=== PATIENT | male | born 1940 | race Caucasian/White ===

== ENCOUNTER 2021-12-12 15:13 | Outpatient (CLI) | payer MEDICARE, OTHER, SELFPAY | END 2021-12-12 15:14 | disposition home or self-care (01) | LOC: NFLDREF 12-24 11:48 | PROVIDERS: PCP Family Medicine; Visit Provider Family Medicine | DX: I50.33 Acute on chronic diastolic (congestive) heart failure (principal); N18.30 Chronic kidney disease, stage 3 unspecified | CPT/HCPCS: 80048 ==

== ENCOUNTER 2021-12-19 14:07 | Outpatient (CLI) | payer MEDICARE, OTHER, SELFPAY ==
[2021-12-19 12:41] LABS: Chloride* 101 mmol/L (96-114); Potassium* 4.7 mmol/L (3.6-5.1); Sodium* 136 mmol/L (135-149)
[2021-12-19 12:44] LABS: Blood Urea Nitrogen* 21 mg/dL (7-30); Carbon Dioxide* 33 mmol/L (20-32); Creatinine* 1.7 mg/dL (0.5-1.5); Estimated Glomerular Filt Rate 40 ml/min; Glucose* 171 mg/dL (60-115)
[2021-12-19 12:45] LABS: Calcium* 8.8 mg/dL (8.4-10.6)
== END 2021-12-19 14:08 | disposition home or self-care (01) ==
PROVIDERS: PCP Family Medicine; Visit Provider Family Medicine
DX: I50.30 Unspecified diastolic (congestive) heart failure (principal); N18.30 Chronic kidney disease, stage 3 unspecified
CPT/HCPCS: 80048

== ENCOUNTER 2022-06-25 10:19 | Outpatient (CLI) | payer MEDICARE, OTHER, SELFPAY ==
[2022-06-25 11:54] LABS: INR 2.89 (0.91-1.10); Prothrombin Time 31.6 Seconds
== END 2022-06-25 10:20 | disposition home or self-care (01) ==
PROVIDERS: PCP Family Medicine; Visit Provider Family Medicine
DX: I48.91 Unspecified atrial fibrillation (principal); Z79.01 Long term (current) use of anticoagulants
CPT/HCPCS: 85610

== ENCOUNTER 2022-07-01 08:37 | Outpatient (CLI) | payer MEDICARE, OTHER, SELFPAY ==
[2022-07-01 09:51] LABS: Albumin* 4.2 g/dL (3.3-5.0); Chloride* 105 mmol/L (96-114); Sodium* 140 mmol/L (135-149)
[2022-07-01 09:52] LABS: Potassium* 4.8 mmol/L (3.6-5.1)
[2022-07-01 09:53] LABS: Carbon Dioxide* 29 mmol/L (20-32); Cholesterol* 175 mg/dL (90-199); Creatinine* 1.6 mg/dL (0.5-1.5); Estimated Glomerular Filt Rate 43 ml/min
[2022-07-01 09:54] LABS: Alanine Aminotransferase* 18 U/L (4-50); Alkaline Phosphatase* 94 U/L (40-150); Aspartate Amino Transferase* 31 U/L (12-35); Bilirubin Total* 0.8 mg/dL (0.1-1.5); Blood Urea Nitrogen* 30 mg/dL (7-30); Glucose* 107 mg/dL (60-115); Total Protein* 7.2 g/dL (6.0-8.3); Triglycerides* 66 mg/dL (40-149)
[2022-07-01 09:55] LABS: HDL Cholesterol* 70 mg/dL (>=40); LDL Cholesterol Calculated 92 mg/dL (<100)
[2022-07-01 10:37] LABS: Vitamin B12* 583 pg/mL (243-894)
== END 2022-07-01 08:38 | disposition home or self-care (01) ==
PROVIDERS: PCP Family Medicine; Visit Provider Family Medicine
DX: E53.8 Deficiency of other specified B group vitamins (principal); K21.9 Gastro-esophageal reflux disease without esophagitis; I10 Essential (primary) hypertension; Z13.6 Encounter for screening for cardiovascular disorders; N18.30 Chronic kidney disease, stage 3 unspecified; Z79.01 Long term (current) use of anticoagulants
CPT/HCPCS: 80053; 80061; 82607

== ENCOUNTER 2022-12-22 08:51 | Outpatient (CLI) | payer MEDICARE, OTHER, SELFPAY | END 2022-12-22 08:52 | disposition home or self-care (01) | PROVIDERS: PCP Family Medicine; Referring Provider Family Medicine; Visit Provider Family Medicine | DX: Z01.818 Encounter for other preprocedural examination (principal); N18.32 Chronic kidney disease, stage 3b; D64.9 Anemia, unspecified | CPT/HCPCS: 80048 ==

== ENCOUNTER 2023-12-24 08:01 | Outpatient (CLI) | payer MEDICARE, OTHER, SELFPAY ==
--- OUTSIDE RECORDS SUMMARY | 2023-12-25 08:30 | XMS_ITS | Clinical Summary ---
Author Organization [facility] Address [address] [place] [address] Care Team Providers Care Engineer Process Name Role Phone Elsewhere, Pcp Primary Care Provider Unavailabl e Source Comments Patient records contain information from all sites at [facility]. For routine questions regarding patient records, call [phone] during business hours, M-F 8:00 AM - 5:00 PM Central Time. Record requests for emergency care only can be directed to [phone] at any time.[facility] Allergies No known active allergies Medications Medication Sig Dispensed Refills Start Date End Date Status metoprolol tartrate (LOPRESSOR) 25 mg tablet Take 25 mg by mouth daily. 09/03/2020 Active sertraline (ZOLOFT) 100 mg tablet Take 1 tablet by mouth daily. 09/13/2014 Active amoxicillin (AMOXIL) 500 mg capsule Take 2,000 mg by mouth as needed (prior to dental procedures). Active warfarin (COUMADIN) 10 mg tablet Take 0.5-1 tablets (5-10 mg total) by mouth daily. 11/29/20: 10 mg; 11/30/20: 5 mg, then resume home 5 mg on Mondays and with 10 mg all other days of the week 11/29/2020 Active Additional Information Patient taking differently:5-10 mg oral Daily,TAKE 10MG EVERY Thursday, Thursday, AND TAKES 5 MG THURSDAY, , THURSDAY, Reported on 12/01/2022 cyanocobalamin (VITAMIN B12) 1,000 mcg tablet Take 1,000 mcg by mouth daily. Active torsemide (DEMADEX) 20 mg tablet Take 1 tablet (20 mg total) by mouth daily. 04/29/2022 Active psyllium (METAMUCIL) 0.52 gram capsule Take 1-2 capsules by mouth daily. 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 Per the NCCN guidelines for lung cancer screening, recommend a follow-up low dose chest CT in 3 months. 08/07/16 Peripheral nodular opacity in the right middle lobe is less prominent on today's study and most likely represents an area of scarring or atelectasis. 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 Encounter For Checking And Testing Of Cardiac Pacemaker Pulse Generator Battery Discharge Disposition: Home or Self Care 10/16/2023 [facility] [address] [place] [address] Myrna Sol M.D. Personal History Of Other Malignant Neoplasm Of Skin (Primary Dx) 10/14/2023 Clinical Communication Department of Dermatology in [place], [place] [address] [place] [address] Abhi Correa M.D. Referral from Last 3 Months Immunizations Name Administration Dates Next Due Influenza Split 02/01/2007 PPSV23 02/01/2007 Family History Medical History Relation Name Comments Melanoma Brother 1 Quan dykema Sleep apnea Brother 1 Quan dykema Colon polyps Brother 2 Sheng dykema Melanoma Sister Emmy de la rosa Relation Name Status Comments Brother 1 Quan dykema Brother 2 Sheng dykema Sister Emmyfilomena de la rosa Social History Tobacco Use Types Packs/Day Years Used Date Smoking Tobacco: Former Cigarettes 1 50 0 [birth year]/04/1954 - 05/04/2004 Smokeless Tobacco: Never Tobacco Cessation:Counseling Given: Not Answered Alcohol Use Standard Drinks/Week Comments Yes 14 (1 standard drink = 0.6 oz pu re alcohol) Humiliation, Afraid, Rape, and Kick questionnair e Answer Date Recorded Within the last year, have y ou been afraid of your partner or ex-partner? No 05/08/2022 Within the last year, have y ou been humiliated or emotionally abused in other ways by your partner or ex-partner? No Within the last year, have y ou been kicked, hit, slapped, or otherwise physically hurt by your partner or ex-partner? No 05/08/2022 Within the last year, have y ou been raped or forced to have any kind of sexual activity by your partner or ex-partner? No 05/08/2022 Social Connection and Isolat ion Panel [NHANES] Answer Date Recorded In a typical week, how many times do you talk on the phone with family, friends, or neighbors? More than three times a week 05/08/2022 How often do you get togethe r with friends or relatives? Twice a week 05/08/2022 How often do you attend chur or islam services? More than 4 times per year 05/08/2022 Do you belong to any clubs o r organizations such as spiritism groups, unions, fraternal or athletic groups, or school groups? Yes 05/08/2022 How often do you attend meet ings of the clubs or organizations you belong to? More than 4 times per year 05/08/2022 Are you , , di vorced, , never , or living with a partner? 05/08/2022 AUDIT-C Answer Date Recorded Q1: How often do you have a drink containing alcohol? 4 or more times a week 05/08/2022 Q2: How many drinks containi ng alcohol do you have on a typical day when you are drinking? 1 or 2 3 Q3: How often do you have si x or more drinks on one occasion? Never 05/08/2022 Overall Financial Resource Strain (CARDIA) Answe r Date Recorded How hard is it for you to pa y for the very basics like food, housing, medical care, and heating? Not very hard 05/08/2022 [facility] [place] of Occupat ional Health - Occupational Stress Questionnaire Answer Date Recorded Do you feel stress - tense, restless, nervous, or anxious, or unable to sleep at night because your mind is troubled all the time - these days? Not at all 05/08/2022 Exercise Vital Sign Answer Date Recorde d On average, how many days pe r week do you engage in moderate to strenuous exercise (like a brisk walk)? 2 days 05/08/2022 On average, how many minutes do you engage in exercise at this level? 20 min 05/08/2022 Hunger Vital Sign Answer Date Recorded Within the past 12 months, y ou worried that your food would run out before you got the money to buy more. Never true 05/08/19 23 Within the past 12 months, t he food you bought just didn't last and you didn't have money to get more. Never true 05/08/2022 PRAPARE - Transportation Answer Date Re corded In the past 12 months, has l ack of transportation kept you from medical appointments or from getting medications? No 09/2022 In the past 12 months, has l ack of transportation kept you from meetings, work, or from getting things needed for daily living? No 05/08/2022 Housing Stability Vital Sign Answer Gagandeep e Recorded In the last 12 months, was t here a time when you were not able to pay the mortgage or rent on time? No 05/08/2022 In the last 12 months, how many places have you lived? 2 05/08/2022 In the last 12 months, was t here a time when you did not have a steady place to sleep or slept in a jail (including now)? No 05/08/2022 Nutrition Answer Date Recorded Nutrition: EVOO Fat Source No 05/08 On average, how many serving s of fruits and vegetables do you eat per day (serving size is equal to 1 cup or approximately the size of a tennis ball)? 0-1 05/08/2022 Dental Answer Date Recorded Dental: Regular Dentist Yes 11/15/19 Employment Answer Date Recorded Employment status Retired 05/08/2022 Education Answer Date Recorded What is the highest level of school you have completed or the highest degree you have received? 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 [employer] Pulse 60 03/13/2023 1:50 PM 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 Temperature 36.6 ??C (97.9 ??F) 03/13/2023 1:50 PM CS T Respiratory Rate 28 04/24/2022 9:10 AM 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 Oxygen Saturation 91% 03/13/2023 1:50 PM 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 [employer] Inhaled Oxygen Concentration - - Weight 79.9 kg (176 lb 2.4 oz) 03/13/2023 1:50 P M 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 Height 176.8 cm (5' 9.61) 03/13/2023 1:50 PM CS T Body Mass Index 25.56 03/13/2023 1:50 PM 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 [employer] Plan of Treatment Health Maintenance Due Date Last Done Comments Zoster Vaccines (2 of 3) 06/04/2006 04/09/2006 Depression Screening (Annual PHQ-2) 05/04/2023 Fall Risk Screen (Annual) 05/04/2023 COVID-19 Vaccine (2022-2 4 season) 2023 04/23/2023, 02/11/2022, 10/15/2021, Additional history exists Creatinine Level (Kidney Fun ction Test) 10/01/2023 09/30/2022, 02/06/2022, 10/18/2021, Additional history exists Fasting Glucose for Diabetes Screening 12/03/2023 12/02/2022, 02/06/2022, 10/18/2021, Additional history exists Potassium Level 12/03/2023 12/02/2022, 10/0 10/2021, 02/06/2022, Additional history exists Sodium Level 12/03/2023 12/02/2022, 10/0 10/2021, 10/18/2021, Additional history exists Influenza Vaccine (#1) 2024 , 02/11/2022, 02/06/2021, Additional history exists DTaP,Tdap,and Td Vaccines (3 - Td or Tdap) 11/01/2024 11/01/2014, 11/01/2012, 11/24/2003, Additional history exists Pneumococcal vaccine (65+ years) Completed 08/07/2014, 02/01/2007, 02/17/2006 Medical Devices Implanted Type Area Currency Examiner Device Identifier Shelf Expiration Date Model / Serial / Lot Lead GrantAdler [id number] Implanted:11/02 (Quantity not on file) Cardiac Lead Other/Legacy - See Implant Description Guidant / [id number] / Description:LEAD Guidant Cor p [id number] Flextend Lead Guidant Baron [id number] Implanted:11/02 (Quantity not on file) Cardiac Lead Other/Legacy - See Implant Description Guidant / [id number] / Description:LEAD Guidant Cor p [id number] Flextend Valve Aortic Carbomedics 25mm - Chappell [id number] Implanted:Qty: 1 on 09/10/2007 Cardiac Valve Prosthesis Aorta Carbomedics Description:Device Manufactu rer - Carbomedics. Body Location - Other. Aortic. Device Status Text - [id number]. Ring Annuloflex Carbomedics 28mm - Chappell [id number] Implanted:Qty: 1 on 11/01/2014 Cardiac Valve Prosthesis Other/Legacy - See Implant Description Carbomedics Description:Device Manufactu rer - Carbomedics. Body Location - Other. Tricuspid. Device Status Text - [id number]. [place] Eddie Fuzzy 6 X 1 - Chappell [id number] Implanted:Qty: 1 on 09/10/2007 Mesh or Patch Impra Description:Device Manufactu rer - Impra. Device Status Text - [id number]. [place] Eddie Fuzzy 1 X 1 - Chappell 1667 Implanted:Qty: 2 on 09/10/2007 Mesh or Patch Doutíssima Description:Device Manufactu rer - Info Assembly. Device Status Text - [id number]. [facility] Data - [id number]. Ocular Lens Ocular Lens Bilateral: Eye Pacemaker [employer] [id number] Implanted:05/2015 (Quantity not on file) Pacemaker Other/Legacy - See Implant Description [employer] / [id number] / Description:Pacemaker [employer] [id number] ACCOLADE EL Hemashield Woven-Str 28 X 30 - Chappell [id number] Implanted:Qty: 1 on 09/10/2007 Vascular Graft Aorta Other/Legacy - See Implant Description Description:Device Manufactu rer - Meadox. Body Location - Other. Aortic. Device Status Text - [id number]. Explanted Type Area Currency Examiner Device Identifier Shelf Expiration Date Model / Serial / Lot Pacemaker Guidant Baron [id number] Implanted:11/29 (Quantity not on file) Explanted:01/02 (Quantity not on file) Pacemaker Chest Guidant / [id number] / Description:Pacemaker Guidan t Baron [id number] Procedures Procedure Name Priority Date/Time Associated Diagnosis Comments PACER REMOTE FOLLOW UP Routine 11/10/2023 1:58 PM CDT Encounter For Checking And Testing Of Cardiac Pacemaker Pulse Generator Battery GLUCOSE, FASTING, S/P Routine 12/02/2022 7:36 AM CDT Atrial Fibrillation Permanent (HCC) Congestive Heart Failure (HCC) SODIUM, S/P Routine 12/02/2022 7:35 AM CDT Atrial Fibrillation Permanent (HCC) Congestive Heart Failure (HCC) POTASSIUM, S/P Routine 12/02/2022 7:35 AM CDT Atrial Fibrillation Permanent (HCC) Congestive Heart Failure (HCC) CREATININE, POCT, B Routine 09/30/2022 6:59 AM CDT from Last 3 Months or Most Recently Relevant to Health Maintenance Results * PACER REMOTE FOLLOW UP (11/10/2023 1:58 PM CDT) Date Time Interrogation Session [id number] [facility] Implantable Pulse Generator Currency Examiner [employer] [facility] Implantable Pulse Generator Model L321 ACCOLADE EL [facility] Implantable Pulse Generator Serial Number [id number] [facility] Type Interrogation Session Remote [facility] Clinic Name [facility] Implantable Pulse Generator Type Pacemaker [facility] Implantable Pulse Generator Implant Date [id number] [facility] Implantable Lead Currency Examiner Guidant [facility] Implantable Lead Model 4086 Flextend [facility] Implantable Lead Serial Number [id number] [facility] Implantable Lead Implant Date [id number] [facility] Implantable Lead Polarity Type Bipolar Lead [facility] Implantable Lead Location Detail 1 Endocardial [facility] Implantable Lead Special Function Lead length: 45 cm [facility] Implantable Lead Location Right Atrium [facility] Implantable Lead Currency Examiner Guidant [facility] Implantable Lead Model 4087 Flextend [facility] Implantable Lead Serial Number [id number] [facility] Implantable Lead Implant Date [id number] [facility] Implantable Lead Polarity Type Bipolar Lead [facility] Implantable Lead Location Detail 1 Endocardial [facility] Implantable Lead Special Function Lead length: 52 cm [facility] Implantable Lead Location Right Ventricle [facility] Abelino Setting Mode (NBG Code) VVIR [facility] Abelino Setting Lower Rate Limit 70 {beats}/ min [facility] Abelino Setting Maximum Sensor Rate 110 {beats}/ min [facility] Abelino Setting AT Mode Switch Rate 170 {beats}/ min [facility] Lead Channel Setting Sensing Sensitivity 0.15 mV [facility] Lead Channel Setting Sensing Adaptation Mode Fixed [facility] Lead Channel Setting Sensing Polarity Bipolar [facility] Lead Channel Setting Sensing Sensitivity 4.0 mV [facility] Lead Channel Setting Sensing Adaptation Mode Fixed [facility] Lead Channel Setting Pacing Polarity Bipolar [facility] Lead Channel Setting Pacing Pulse Width 0.4 ms [facility] Lead Channel Setting Pacing Amplitude 2.5 V [facility] Lead Channel Setting Pacing Capture Mode Adaptive [facility] Zone Setting Type Category VT [facility] Zone Setting Detection Interval 375 ms [facility] Lead Channel Impedance Value 1,204 ohm [facility] Lead Channel Pacing Threshold Amplitude 2.0 V [facility] Lead Channel Pacing Threshold Pulse Width 0.4 ms [facility] Battery Date Time of Measurements [facility] Battery Status Beginning of Service [facility] Battery Remaining Longevity 96 mo [facility] Battery Remaining Percentage 93 % [facility] Abelino Statistic Date Time Start [facility] Abelino Statistic Date Time End [facility] Abelino Statistic RA Percent Paced 0 % [facility]ino Statistic RV Percent Paced 99 % [facility] Episode Statistic Recent Count 0 [facility] Episode Statistic Type Category AT/AF [facility] Episode Statistic Vendor Type Category AF [facility] Episode Statistic Recent Count 0 [facility] Episode Statistic Type Category SVT [facility] Episode Statistic Vendor Type Category SVT [facility] Episode Statistic Recent Count 28 [facility] Episode Statistic Type Category VT [facility] Episode Statistic Vendor Type Category NSVT [facility] Episode Statistic Recent Count 2 [facility] Episode Statistic Type Category VT [facility] Episode Statistic Vendor Type Category VT [facility] Episode Statistic Recent Date Time Start [facility] Episode Statistic Recent Date Time End [facility] Episode Statistic Recent Date Time Start [facility] Episode Statistic Recent Date Time End [facility] Episode Statistic Recent Date Time Start [facility] Episode Statistic Recent Date Time End [facility] Episode Statistic Recent Date Time Start [facility] Episode Statistic Recent Date Time End [facility] Episode Type Category Periodic EGM [facility] Episode Date Time [facility] Episode Type Category Other [facility] Episode Date Time [facility] Episode Type Category VT [facility] Episode Date Time [facility] Episode Duration 12 s [facility] Episode Type Category VT [facility] Episode Date Time [id number] [facility] Episode Duration 17 s [facility] Episode Type Category VT [facility] Episode Date Time [facility] Episode Duration 13 s [facility] Episode Type Category VT [facility] Episode [facility] Time [facility] Episode Duration 15 s [facility] Episode Type Category VT [facility] Episode Date Time [facility] Episode Duration 15 s [facility] Anatomical Region Laterality Modality Other 11/06/2023 2:11 AM CDT Narrative 2023 8:07 AM CDT PURPOSE OF VISIT: ??Routine remote transmission. PRESENTING EGM: ??SEWAGE DISPOSAL ENGINEER at 70 bpm. ?? VENTRICULAR ARRHYTHMIAS: ?Sustained episodes: None. ?Non-Sustained episodes: ??Five events classified as NSVT with two stored EGMs. EGMs show 23-30 beat runs of NSVT at 167-171 bpm. Patient denies symptoms. I have updated his cardiology team. BATTERY LONGEVITY: Expected battery longevity trends reviewed and are stable and consistent with device settings and use. SUMMARY: All device function appears normal. FOLLOW UP: Next routine follow-up will be in 3 months via Latitude transmission. DEVICE RN: Joseph Lazo RN Provider statement: This patient underwent device interrogation. I agree that the device interrogation was medically indicated to provide appropriate care and continue routine device interrogations as indicated. Lena Luna M.D. CV IMPLANTABLE CARDI AC DEVICE * Glucose, Fasting (12/02/2022 7:36 AM CDT) Glucose, P 97 70 - 100 mg/dL 12/02/2022 8:33 AM CDT DTL Last Intake 13 hr 12/02/2022 8:14 AM CDT DTL Blood (Blood, Venous) 12/02/2022 7:36 AM CDT 12/02/2022 8:14 AM CDT Abdulkadir Meadows M.D. LAB BLOOD NON ADD-ON [facility] [address] [place] [address], [facility] [address] [place] [address] * Sodium (12/02/2022 7:35 AM CDT) Sodium, S 141 135 - 145 mmol/L 12/02/2022 8:37 AM CDT DTL Blood (Blood, Venous) 12/02/2022 7:35 AM CDT 12/02/2022 8:09 AM CDT Abdulkadir Meadows M.D. LAB BLOOD ADD-ON Performing Organization Address City/[facility]/ZIP Co de Phone Number [facility] [address] [place] [address], [facility] [address] [place] [address] * Potassium (12/02/2022 7:35 AM CDT) Potassium, S 4.9 3.6 - 5.2 mmol/L 12/02/2022 8:37 AM CDT DTL Blood (Blood, Venous) 12/02/2022 7:35 AM CDT 12/02/2022 8:09 AM CDT Abdulkadir Meadows M.D. LAB BLOOD ADD-ON [facility] [address] [place] [address], [facility] DTL [facility] [place] [address] * (ABNORMAL) Creatinine, POCT (09/30/2022 6:59 AM CDT) Creatinine, POCT, B 1.8(H) 0.7 - 1.4 mg/dL 09/30/2022 7:01 AM CDT PCDT Comment: ----ADDITIONAL INFORMATION---- Performed at the Point of Care Blood 09/30/2022 6:59 AM CDT 09/30/2022 7:01 AM CDT Unknown Provider LAB POCT ORDERABLES - DEVICE [facility] [address] [place] [address], [facility] PCDT [facility] [address] [place] [address] from Last 3 Months or Most Recently Relevant to Health Maintenance Advance Directives For more information, please contact: [phone] Documents on File Type Date Recorded 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 See document viewer. * Full Code (Latest Code Status on File) Date Activated Date Inactivated Comments 11/25/2020 4:47 AM 11/29/2020 6:51 PM Question Answer Comments Full Code: Discussed Care Teams Engineer Process Relationship Specialty Start Date End Date Elsewhere, Pcp PCP - General Family Medicine 11/27/20 Mary Ann Sol [address] [place] [address] Environmental Projects Advisor Physician 01/17/19
--- OUTSIDE RECORDS SUMMARY | 2023-12-25 08:31 | XMS_ITS | Encounter Summary ---
Author Organization [facility] Address [address] [place] [address] Care Team Providers Care Tube Closing Machine Operator Name Role Phone Elsewhere, Pcp Primary Care Provider Unavailabl e Reason for Referral * Outpatient (Routine) - Authorized Specialty Diagnoses / Procedures Referred By Jesus Manuel melchor Referred To Contact Dermatology Diagnoses Personal History Of Other Malignant Neoplasm Of Skin Myrna Sol M.D. [address] [place] [address] [facility] Referral ID Status Reason Start Date Expiration Date V isits Requested Visits Authorized [id number] Authorized 10/16/2023 04/16/2025 1 1 Encounter Details Date Type Department Care Team (Late st Contact Info) Description 10/16/2023 [facility] [address] [place] [address] Myrna Sol M.D. [address] [place] [phone] Personal History Of Other Malignant Neoplasm Of Skin (Primary Dx) Social History Tobacco Use Types Packs/Day Years Used Date Smoking Tobacco: Former Cigarettes 1 50 0 05/04/1954 - 05/04/2004 Smokeless Tobacco: Never Alcohol Use Standard Drinks/Week Comments Yes 14 [...] How often do you attend chur or rastafari services? More than 4 times per year 05/08/2022 Do you belong to any clubs o r organizations such as synagogue groups, unions, fraternal or athletic groups, or [...] care, and heating? Not very hard 05/08/2022 [facility] Occupat ional Health - Occupational Stress [...] place to sleep or slept in a long term (including now)? No 05/08/2022 Nutrition Answer Date [...] Orientation Straight 08/22/2018 2: 26 PM CDT documented as of this encounter Plan of Treatment Scheduled Referrals Name Type Priority Associated Diagnoses Order Schedule Dermatology Referral Outpatient Referral Routine Personal History Of Other Malignant Neoplasm Of Skin Expected: 10/16/2023 (Approximate), Expires: 01/15/2025 documented as of this encounter Visit Diagnoses Diagnosis Personal History Of Other Malignant Neoplasm Of Skin- Primary documented in this encounter Care Teams Tube Closing Machine Operator Relationship Specialty Start Date End Date Elsewhere, Pcp PCP - General Family Medicine 11/27/20 Mary Ann Sol [address] [place] [address] Key Account Representative Physician 01/17/19 documented as of this encounter
--- OUTSIDE RECORDS SUMMARY | 2023-12-25 08:31 | XMS_ITS | Encounter Summary ---
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 Social History Tobacco Use Types Packs/Day Years [...] 05/08/2022 How often do you attend chur ch or nondenominational services? More than 4 times per year 05/08/2022 Do you belong to any clubs o r organizations such as alevism groups, unions, fraternal or athletic groups, or [...] care, and heating? Not very hard 05/08/2022 [facility]ational Stress Questionnaire Answer Date [...] place to sleep or slept in a intermediate (including now)? No 05/08/2022 Nutrition Answer Date [...] PM CDT documented as of this encounter Miscellaneous Notes * Telephone Encounter - Joseph Lazo RArmandoN. - 11/10/2023 2:04 PM CDT Images from the original note were not included. Lynn, this is an update from Mr. Gross's pacemaker. He had 5 NSVT events in the past 3 months. There are images for 2 on the events. It is difficult to confirm that they are ventricular arrhythmiasbut we he has been in complete AV block with no escape rate at his in-clinic checks, so probably not conducted AT. He does not recall any symptoms. Joseph Moya 11/03/2023 22:50: 23 beat run of NSVT at 175 bpm 10/13/2023 15:20: 30 beat run of NSVT at 167 bpm. * Telephone Encounter - Savannah Cota R.N. - 03/16/2023 9:57 AM PHYSICIAN NON INVASIVE CARDIOLOGIST Images from the original note were not included. Sam's device sent an alert transmission for VT episode. 1 VHR episode that occurred on 03-16-23 @ 07am. EGM shows frequent PVCs leading up to 5 beats of NSVT then 13 beats of NSVT, episode ended with bigeminal PVCs. Nursing contacted patient regarding symptoms. He denied feeling anything D/t this being the second episode similar in the last week I just wanted you to be aware. Patient stated he takes his meds in Am with breakfast and has not missed any recently. My full report is in epic Thank you Savannah. ICIAN NON INVASIVE CARDIOLOGIST documented in this encounter Plan of Treatment Not on file documented as of this encounter Visit Diagnoses Not on filedocumented in this encounter Care Teams It Compliance Analyst Relationship Specialty Start Date End Date Elsewhere, Pcp PCP - General Family Medicine 11/27/20 Mary Ann Sol [address] [place] [id number] Domain Architect Physician 01/17/19 documented as of this encounter
--- OUTSIDE RECORDS SUMMARY | 2023-12-25 08:31 | XMS_ITS | Encounter Summary ---
Author Organization [facility] Address [address] [place] [address] Care Team Providers Care Conventions Reservationist Name Role Phone Elsewhere, Pcp Primary Care Provider Unavailabl e Reason for Visit * Reason Onset Date Comments Referral 10/14/2023 Encounter Details Date Type Department Care Team (Late st Contact Info) Description 10/14/2023 Clinical Communication Department of Dermatology in [place], [place] [address] [place] [phone] Abhi Correa M.D. [address] [place] [phone] Referral Social History Tobacco Use Types Packs/Day Years [...] often do you attend chur ch or denominational services? More than 4 times per year 05/08/2022 Do you belong to any clubs o r organizations such as restorationist groups, unions, fraternal or athletic groups, or [...] care, and heating? Not very hard 05/08/2022 [facility] of Occupat ional Health - Occupational Stress [...] place to sleep or slept in a mcc (including now)? No 05/08/2022 Nutrition Answer Date [...] as of this encounter Plan of Treatment Not on file documented as of this encounter Visit Diagnoses Not on filedocumented in this encounter Care Teams Conventions Reservationist Relationship Specialty Start Date End Date Elsewhere, Pcp PCP - General Family Medicine 11/27/20 Mary Ann Sol [address] [place] [address] College Counselor Physician 01/17/19 documented as of this encounter
--- OUTSIDE RECORDS SUMMARY | 2023-12-25 08:31 | XMS_ITS | Clinical Summary ---
Author Organization [facility] Address [address] [place] [address] Care Team Providers Care Fashion Consultant Sales Name Role Phone None, Pcp Primary Care Provider Unavailabl e Allergies No known active allergies Medications Medication Sig Dispensed Refills Start Date End Date Status cyanocobalamin (VITAMIN B-12) 1000 MCG tablet Take 1,000 mcg by mouth daily Active enoxaparin (LOVENOX) 120 MG/0.8ML solution prefilled syringe PLEASE SEE ATTACHED FOR DETAILED DIRECTIONS 04/17/2022 Active metoprolol tartrate (LOPRESSOR) 25 MG tablet Take 25 mg by mouth 1 (one) time each day 02/22/2022 Active psyllium (METAMUCIL) 0.52 g capsule Take 1-2 capsules by mouth Active sertraline (ZOLOFT) 100 MG tablet Take 100 mg by mouth 1 (one) time each day 03/24/2022 Active torsemide (DEMADEX) 20 MG tablet TAKE 1 TABLET BY MOUTH IN THE MORNING AND EVENING DIRECTED NEEDED FOR WEIGHT GAIN 03/30/2022 Active warfarin (COUMADIN) 10 MG tablet TAKE 1 TABLET BY MOUTH DAILY. TAKE 5M MON/THU/THU, AND 10MG ALL OTHER DAYS. 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 Congestive heart failure 09/20/2021 Obstructive sleep apnea (adult) (pediatric) 09/02 Overview: Uses nightly Mild chronic obstructive pulmonary disease 09/20 Pernicious anemia 09/20/2021 Status post tricuspid valve repair 09/20/2021 Gastroesophageal reflux disease without esophagi tis 03/26/2021 Pneumonia 11/25/2020 Anemia 01/17/2019 Excessive anticoagulation 01/17/2019 Abnormal findings on diagnos tic imaging of other specified body structures 08/24/2018 History of cardiac pacemaker in situ 01/01/2018 Presence of prosthetic heart valve 01/01/2018 Adjustment disorder with depressed mood 03/05/20 17 Overweight (BMI 25.0-29.9) 03/05/2017 Erectile dysfunction 08/06/2016 Screening for colon cancer 08/06/2016 Screening for heart disease 08/06/2016 Solitary pulmonary nodule 03/19/2016 Overview: 03/19/16 CT lung screen showed 6 mm [...] follow-up low-dose chest CT in one year 03/19/16 CT lung screen showed 6 mm [...] follow-up low-dose chest CT in one year History of cigarette smoking 03/03/2016 Overview: Quit 2004. 36 pack year history Incisional hernia 03/03/2016 Overview: Present following CV surgery epigastric 2X2 cm Present following CV surgery epigastric 2X2 cm Pacemaker at end of battery life 01/03/2016 Hypercholesterolemia 07/10/2015 Transient ischemic attack 07/10/2015 Overview: Evaluated in [place] 06/2015 Evaluated in [place] 06/2015 Status post tricuspid valve replacement 11/17/19 15 Overview: [facility] 11/2014 Dr. Petar Clark Fatigue 03/18/2013 Shortness of breath 03/15/2013 Heart valve replaced by other means 09/24/2012 Overview: [facility] 11/2014 Dr. 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 therapy 1 Other specified extrapyramidal and movement diso rders 10/04/2009 Other abnormal glucose 10/12/2008 Permanent atrial fibrillation 06/07/2008 Benign neoplasm of colon 05/21/2006 Immunizations Name Administration Dates Next Due Flu Vaccine High Dose 65yrs and Older IM 02/11/2022,02/06/2021,02/11/2019,02/17,02/19/2017,03/03/2016,02/26/2015 ,02/14/2014,03/18/2013 Influenza Split 02/01/2007 Influenza, Split Virus, Triv alent, Preservative 02/09/2012,02/17/2011,03/26/2010,01/30,02/29/2008,02/26/2007,02/01/2007 ,02/17/2006,03/12/2005,05/21/2004,12/0 08/2002 Pneumococcal Conjugate 13-Valent 08/07/2014 Pneumococcal Polysaccharide 02/01/2007,10/17/200 6 TD Preservative Free 11/01/2014,11/24/2003,10/03 Td 11/24/2003,10/03/1997 Tdap 11/01/2012 Varicella 04/09/2006 Zoster 04/09/2006 Social History Tobacco Use Types Packs/Day Years Used Date Smoking Tobacco: Former Cigarettes Q uit: 05/2013 Smokeless Tobacco: Never Tobacco Cessation:Counseling Given: Not Answered Alcohol Use Standard Drinks/Week Comments Yes 2 (1 standard drink = 0.6 oz pur e alcohol) socially PHQ-2 Answer Date Recorded PHQ-9 Total Score 0 04/23/2022 Sex and Gender Information Value Date Recorded Sex Assigned at Not on file Gender Identity Not on file Sexual Orientation Not on file Last Filed Vital Signs Vital Sign Reading Time Taken Comments Blood Pressure 137/70 04/23/2022 2:44 PM OCCUP THERAPIST Pulse 71 04/23/2022 2:44 PM OCCUP THERAPIST Temperature 36.6 ??C (97.8 ??F) 04/23/2022 2:44 PM CS T Respiratory Rate 17 04/23/2022 2:44 PM OCCUP THERAPIST Oxygen Saturation 97% 04/23/2022 2:44 PM OCCUP THERAPIST Inhaled Oxygen Concentration - - Weight 82.3 kg (181 lb 8.4 oz) 04/23/2022 2:44 P M OCCUP THERAPIST Height - - Body Mass Index - - Plan of Treatment Health Maintenance Due Date Last Done Comments Fall Risk Performed 11/10/1958 Zoster Vaccines (2 of 3) 06/04/2006 04/09/2006 COVID-19 Vaccine ( season) 2023 04/23/2023, 02/11/2022, 10/15/2021, Additional history exists Influenza Vaccine (#1) 2024 , 02/11/2022, 02/06/2021, Additional history exists DTaP,Tdap,and Td Vaccines (3 - Td or Tdap) 11/01/2024 11/01/2014, 11/01/2012, 11/24/2003, Additional history exists Pneumococcal Vaccine: 65+ Years Completed 08/07/2014, 02/01/2007, 02/17/2006 HPV Vaccines Aged Out No longer eligi ble based on patient's age to complete this topic Care Teams Fashion Consultant Sales Relationship Specialty Start Date End Date None, Pcp [address] [place] [address] PCP - General Billing Department Supervisor 04/23/22
--- OUTSIDE RECORDS SUMMARY | 2023-12-25 08:31 | XMS_ITS | Encounter Summary ---
Author Organization [facility] Address [address] [place] [address] Care Team Providers Care Enterprise Infrastructure Architect Name Role Phone Elsewhere, Pcp Primary Care Provider Unavailabl e Encounter Details Date Type Department Care Team (Latest Contact Info) Description 11/06/2023 4:00 AM CDT - 11/06/2023 11:59 PM CDT Hospital Encounter Department of Cardiovascular Diseases in [place], [place] [address] [place] [address] Lena Luna M.D. [address] [place] [address] Encounter For Checking And Testing Of Cardiac Pacemaker Pulse Generator Battery Discharge Disposition: Home or Self Care Social History Tobacco Use Types Packs/Day Years [...] How often do you attend chur or evangelical services? More than 4 times per year 05/08/2022 Do you belong to any clubs o r organizations such as adventism groups, unions, fraternal or athletic groups, or [...] care, and heating? Not very hard 05/08/2022 [facility] Occupat ional Health - [...] place to sleep or slept in a snf (including now)? No 05/08/2022 Nutrition Answer Date [...] PM CDT documented as of this encounter Medications at Time of Discharge Medication Sig Dispensed Refills Start Date End Date amoxicillin (AMOXIL) 500 mg capsule Take 2,000 mg by mouth as needed (prior to dental procedures). cyanocobalamin (VITAMIN B12) 1,000 mcg tablet Take 1,000 mcg by mouth daily. metoprolol tartrate (LOPRESSOR) 25 mg tablet Take 25 mg by mouth daily. 09/03/2020 psyllium (METAMUCIL) 0.52 gram capsule Take 1-2 capsules by mouth daily. sertraline (ZOLOFT) 100 mg tablet Take 1 tablet by mouth daily. 09/13/2014 torsemide (DEMADEX) 20 mg tablet Take 1 tablet (20 mg total) by mouth daily. 04/29/2022 warfarin (COUMADIN) 10 mg tablet Take 0.5-1 tablets (5-10 mg total) by mouth daily. 11/29/20: 10 mg; 11/30/20: 5 mg, then resume home 5 mg on Mondays and with 10 mg all other days of the week 11/29/2020 documented as of this encounter Plan of Treatment Not on file documented as of this encounter Procedures Procedure Name Priority Date/Time Associated Diagnosis Comments PACER REMOTE FOLLOW UP Routine 11/10/2023 1:58 PM CDT Encounter For Checking And Testing Of Cardiac Pacemaker Pulse Generator Battery documented in this encounter Results * PACER REMOTE FOLLOW UP (11/10/2023 1:58 PM CDT) Date Time Interrogation Session [id number] [facility] Implantable Pulse Generator Materials Manager Coolidge Beamly [facility] Implantable Pulse Generator Model L321 ACCOLADE EL [facility] Implantable Pulse Generator Serial Number [id number] [facility] Type Interrogation Session Remote [facility] Clinic Name [facility] Implantable Pulse Generator Type Pacemaker [facility] Implantable Pulse Generator Implant Date [id number] [facility] Implantable Lead Materials Manager Guidant [facility] Implantable Lead Model 4086 Flextend [facility] Implantable Lead Serial Number [id number] [facility] Implantable Lead Implant Date [id number] [facility] Implantable Lead Polarity Type Bipolar Lead [facility] Implantable Lead Location Detail 1 Endocardial [facility] Implantable Lead Special Function Lead length: 45 cm [facility] Implantable Lead Location Right Atrium [facility] Implantable Lead Materials Manager Guidant [facility] Implantable Lead Model 4087 Flextend [facility] Implantable Lead Serial Number [id number] [facility] Implantable Lead Implant Date [id number] [facility] Implantable Lead Polarity Type Bipolar Lead [facility] Implantable Lead Location Detail 1 Endocardial [facility] Implantable Lead Special Function Lead length: 52 cm [facility] Implantable Lead Location Right Ventricle [facility] [place]ino Setting Mode (NBG Code) VVIR [facility] Setting Lower Rate Limit 70 {beats}/ min [facility] Setting Maximum Sensor Rate 110 {beats}/ min [facility] Setting AT Mode Switch Rate 170 {beats}/ min [facility] Lead Channel Setting Sensing Sensitivity 0.15 mV [facility] Lead Channel Setting Sensing Adaptation Mode Fixed [facility] Lead Channel Setting Sensing Polarity Bipolar [facility] Lead Channel Setting Sensing Sensitivity 4.0 mV [facility] Lead Channel Setting Sensing Adaptation Mode Fixed [facility] Lead Channel Setting Pacing Polarity Bipolar [facility] Lead Channel Setting Pacing Pulse Width 0.4 ms [facility] Lead Channel Setting Pacing Amplitude 2.5 V [facility] Lead Channel Setting Pacing Capture Mode Adaptive [facility] Zone Setting Type Category VT [facility] Zone Setting Detection Interval 375 ms [facility] Lead Channel Impedance Value 1,204 ohm [facility] Lead Channel Pacing Threshold Amplitude 2.0 V [facility] Lead Channel Pacing Threshold Pulse Width 0.4 ms [facility] Battery Date Time of Measurements [facility] Battery Status Beginning of Service [facility] Battery Remaining Longevity 96 mo [facility] Battery Remaining Percentage 93 % [facility] Abelino Statistic Date Time Start [facility] Statistic Date Time End [facility] Abelino Statistic RA Percent Paced 0 % [facility] Statistic RV Percent Paced 99 % [facility] Episode Statistic Recent Count [...] EGM [facility] Episode Date Time [id number] [facility] Episode Type Category Other [facility] Episode Date Time [id number] [facility] Episode Type Category [place] [facility] Episode Date Time [id number] [facility] Episode Duration 12 s [facility] Episode Type Category [place] [facility] Episode Date Time [id number] [facility] Episode Duration 17 s [facility] Episode Type Category [place] [facility] Episode Date Time [id number] [facility] Episode Duration 13 s [facility] Episode Type Category [place] [facility] Episode Date Time [id number] [facility] Episode Duration 15 s [facility] Episode Type Category [place] [facility] Episode Date Time [id number] [facility] Episode Duration 15 s [facility] Anatomical Region Laterality Modality Other 11/06/2023 2:11 AM CDT Narrative 2023 8:07 AM CDT PURPOSE OF VISIT: ??Routine remote transmission. PRESENTING EGM: ??CLASSIFICATION CONTROL CLERK at 70 bpm. ?? VENTRICULAR ARRHYTHMIAS: ?Sustained [...] Luna M.D. CV IMPLANTABLE CARDI AC DEVICE documented in this encounter Visit Diagnoses Diagnosis Encounter For Checking And Testing Of Cardiac Pacemaker Pulse Generator Battery documented in this encounter Care Teams Enterprise Infrastructure Architect Relationship Specialty Start Date End Date Elsewhere, Pcp PCP - General Family Medicine 11/27/20 Mary Ann Sol [address] [place] [id number] Senior Fund Accountant Physician 01/17/19 documented as of this encounter
--- OUTSIDE RECORDS SUMMARY | 2023-12-25 08:31 | XMS_ITS | Referral Summary ---
Author Organization [facility] Address [address] [place] [address] Care Team Providers Care Exercise Equipment Specialist Name Role Phone Elsewhere, Pcp Primary Care Provider Unavailabl e Source Comments Patient records contain information from all sites at [facility]. For routine questions regarding patient records, call [phone] during business hours, M-F 8:00 AM - 5:00 PM Central Time. Record requests for emergency care only can be directed to [phone] at any time.[facility] Encounters Date Type Department Care Team Description 11/06/2023 4:00 AM CDT - 11/06/2023 11:59 PM CDT Hospital Encounter Department of Cardiovascular Diseases in [place], [place] [address] [place] [address] Lena Luna M.D. Encounter For Checking And Testing Of Cardiac Pacemaker Pulse Generator Battery Discharge Disposition: Home or Self Care 10/16/2023 [facility] [address] [place] [address] Myrna Sol M.D. Personal History Of Other Malignant Neoplasm Of Skin (Primary Dx) 10/14/2023 Clinical Communication Department of Dermatology in [place], [place] [address] [place] [address] Abhi Correa M.D. 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 More than 4 times per year 05/08/2022 Do you belong to any clubs o r organizations such as islam groups, unions, fraternal or athletic groups, or [...] care, and heating? Not very hard 05/08/2022 [facility] - Occupational Stress Questionnaire Answer Date [...] place to sleep or slept in a half-way (including now)? No 05/08/2022 Nutrition Answer Date [...] Comments Blood Pressure 97/61 03/13/2023 1:50 PM CLERICAL RECEPTIONIST Pulse 60 03/13/2023 1:50 PM CLERICAL RECEPTIONIST Temperature 36.6 ??C (97.9 ??F) 03/13/2023 1:50 PM CS T Respiratory Rate 28 04/24/2022 9:10 AM CLERICAL RECEPTIONIST Oxygen Saturation 91% 03/13/2023 1:50 PM CLERICAL RECEPTIONIST Inhaled Oxygen Concentration - - Weight 79.9 kg (176 lb 2.4 oz) 03/13/2023 1:50 P M CLERICAL RECEPTIONIST Height 176.8 cm (5' 9.61) 03/13/2023 1:50 PM CS T Body Mass Index 25.56 03/13/2023 1:50 PM CLERICAL RECEPTIONIST Plan of Treatment Not on file Medical Devices Implanted Type Area Social Services Specialist Device Identifier Shelf Expiration Date Model / Serial / Lot Lead Guidant Baron [id number] Implanted:11/02 (Quantity not on file) Cardiac Lead Other/Legacy - See Implant Description Guidant / [id number] / Description:LEAD Guidant Cor p [id number] Flextend Lead Guidant Baron [id number] Implanted:11/02 (Quantity not on file) Cardiac Lead Other/Legacy - See Implant Description Guidant / [id number] / Description:LEAD Guidant Cor p [id number] Flextend Valve Aortic Carbomedics 25mm - Chappell [id number] Implanted:Qty: 1 on 09/10/2007 Cardiac Valve Prosthesis Aorta Carbomedics Description:Device Manufactu rer - Carbomedics. Body Location - Other. Aortic. Device Status Text - [id number]. Ring Annuloflex Carbomedics 28mm - Chappell [id number] Implanted:Qty: 1 on 11/01/2014 Cardiac Valve Prosthesis Other/Legacy - See Implant Description Carbomedics Description:Device Manufactu rer - Carbomedics. Body Location - Other. Tricuspid. Device Status Text - [id number]. [place] Eddie Fuzzy 6 X 1 - Chappell 1665 Implanted:Qty: 1 on 09/10/2007 Mesh or Patch Impra Description:Device Manufactu rer - Impra. Device Status Text - [id number]. [place] Eddie Fuzzy 1 X 1 - Chappell 1667 Implanted:Qty: 2 on 09/10/2007 Mesh or Patch JNJ Mobile Description:Device Manufactu rer - DeRoyal. Device Status Text - [id number]. [facility] Data - [id number]. Ocular Lens Ocular Lens Bilateral: Eye Pacemaker [employer] [id number] Implanted:05/2015 (Quantity not on file) Pacemaker Other/Legacy - See Implant Description [employer] / [id number] / Description:Pacemaker [employer] [id number] ACCOLADE EL Hemashield Woven-Str 28 X 30 - Chappell [id number] Implanted:Qty: 1 on 09/10/2007 Vascular Graft Aorta Other/Legacy - See Implant Description Description:Device Manufactu rer - Meadox. Body Location - Other. Aortic. Device Status Text - [id number]. Explanted Type Area Social Services Specialist Device Identifier Shelf Expiration Date Model / Serial / Lot Pacemaker Guidant Baron [id number] Implanted:11/29 (Quantity not on file) Explanted:01/02 (Quantity not on file) Pacemaker Chest Guidant / [id number] / Description:Pacemaker Guidan t Baron [id number] Procedures Procedure Name Priority Date/Time Associated [...] 1:58 PM CDT) Date Time Interrogation Session [id number] [facility] Implantable Pulse Generator Social Services Specialist Portable Scores [employer] [facility] Implantable Pulse Generator Model L321 ACCOLADE EL [facility] Implantable Pulse Generator Serial Number [id number] [facility] Type Interrogation Session Remote [facility] Clinic Name [facility] Implantable Pulse Generator Type Pacemaker [facility] Implantable Pulse Generator Implant Date 20160103 [facility] Implantable Lead Social Services Specialist Guidant [facility] Implantable Lead Model 4086 Flextend [facility] Implantable Lead Serial Number [id number] [facility] Implantable Lead Implant Date [id number] [facility] Implantable Lead Polarity Type Bipolar Lead [facility] Implantable Lead Location Detail 1 Endocardial [facility] Implantable Lead Special Function Lead length: 45 cm [facility] Implantable Lead Location Right Atrium [facility] Implantable Lead Social Services Specialist Guidant [facility] Implantable Lead Model 4087 Flextend [facility] Implantable Lead Serial Number [id number] [facility] Implantable Lead Implant Date [id number] [facility] Implantable Lead Polarity Type Bipolar Lead [facility] Implantable Lead Location Detail 1 Endocardial [facility] Implantable Lead Special Function Lead length: 52 cm [facility] Implantable Lead Location Right Ventricle [facility] [place] Setting Mode (NBG Code) VVIR [facility] [place] Setting Lower Rate Limit 70 {beats}/ min [facility] [place] Setting Maximum Sensor Rate 110 {beats}/ min [facility] [place] Setting AT Mode Switch Rate 170 {beats}/ min [facility] Lead Channel Setting Sensing Sensitivity 0.15 mV [facility] Lead Channel Setting Sensing Adaptation Mode Fixed [facility] Lead Channel Setting Sensing Polarity Bipolar [facility] Lead Channel Setting Sensing Sensitivity 4.0 mV [facility] Lead Channel Setting Sensing Adaptation Mode Fixed [facility] Lead Channel Setting Pacing Polarity Bipolar [facility] Lead Channel Setting Pacing Pulse Width 0.4 ms [facility] Lead Channel Setting Pacing Amplitude 2.5 V [facility] Lead Channel Setting Pacing Capture Mode Adaptive [facility] Zone Setting Type Category VT [facility] Zone Setting Detection Interval 375 ms [facility] Lead Channel Impedance Value 1,204 ohm [facility] Lead Channel Pacing Threshold Amplitude 2.0 V [facility] Lead Channel Pacing Threshold Pulse Width 0.4 ms [facility] Battery Date Time of Measurements [facility] Battery Status Beginning of Service [facility] Battery Remaining Longevity 96 mo [facility] Battery Remaining Percentage 93 % [facility] Abelino Statistic Date Time Start [facility] Abel[place] Statistic Date Time End [facility] [place] Statistic RA Percent Paced 0 % [facility] [place] Statistic RV Percent Paced 99 % [facility] Episode Statistic Recent Count 0 [facility] Episode Statistic Type Category AT/AF [facility] Episode Statistic Vendor Type Category AF [facility] Episode Statistic Recent Count 0 [facility] Episode Statistic Type Category SVT [facility] Episode Statistic Vendor Type Category SVT [facility] Episode Statistic Recent Count 28 [...] [place] [facility] Episode Date Time [id number] [facility] Episode Duration 17 s [facility] Episode Type Category [facility] Episode Date Time [id number] [facility] Episode Duration 13 s [facility] Episode Type Category [facility] Episode Date Time [id number] [facility] Episode Duration 15 s [facility] Episode Type Category [facility] Episode Date Time [id number] [facility] Episode Duration 15 s [facility] Anatomical Region Laterality Modality Other 11/06/2023 2:11 AM CDT Narrative 2023 8:07 AM CDT PURPOSE OF VISIT: ??Routine remote transmission. PRESENTING EGM: ??ENVIRONMENTAL SCIENCE PROFESSOR at 70 bpm. ?? VENTRICULAR ARRHYTHMIAS: ?Sustained [...] Abdulkadir Meadows M.D. LAB BLOOD NON ADD-ON [facility] [address] [place] [address], [facility] [address] [place] [address] * Sodium (12/02/2022 7:35 AM CDT) Sodium, S 141 135 - 145 mmol/L 12/02/2022 8:37 AM CDT DTL Blood (Blood, Venous) 12/02/2022 7:35 AM CDT 12/02/2022 8:09 AM CDT Abdulkadir Meadows M.D. LAB BLOOD ADD-ON [facility] [address] [place] [address], [facility] [address] [place] [address] * Potassium (12/02/2022 7:35 AM CDT) Potassium, S 4.9 3.6 - 5.2 mmol/L 12/02/2022 8:37 AM CDT DTL Blood (Blood, Venous) 12/02/2022 7:35 AM CDT 12/02/2022 8:09 AM CDT Abdulkadir Meadows M.D. LAB BLOOD ADD-ON Performing Organization Address City/[facility]/ZIP Co de Phone Number [facility] [address] [place] [address], [facility] DTL [facility] [address] [place] [address] * (ABNORMAL) Creatinine, POCT (09/30/2022 6:59 AM CDT) Creatinine, POCT, B 1.8(H) 0.7 - 1.4 mg/dL 09/30/2022 7:01 AM CDT PCDT Comment: ----ADDITIONAL INFORMATION---- Performed at the Point of Care Blood 09/30/2022 6:59 AM CDT 09/30/2022 7:01 AM CDT Unknown Provider LAB POCT ORDERABLES - DEVICE Performing Organization Address [facility] de Phone Number [facility] [address] [place] [address], [facility] PCDT [facility] [address] [place] [address] from Last 3 Months or Most Recently Relevant to Health Maintenance Advance Directives For more information, please contact: [phone] Documents on File Type Date Recorded Patient Investor Relations Specialist Expl anation Advance Directives 11/01/2014 12:00 AM Catinaa kiara document. See document viewer. * Full Code (Latest Code Status on File) Date Activated Date Inactivated Comments 11/25/2020 4:47 AM 11/29/2020 6:51 PM Question Answer Comments Full Code: Discussed Care Teams Exercise Equipment Specialist Relationship Specialty Start Date End Date Elsewhere, Pcp PCP - General Family Medicine 11/27/20 Mary Ann Sol [address] [place] [id number] [employer] Adf Consultant Physician 01/17/19
--- OUTSIDE RECORDS SUMMARY | 2023-12-25 08:31 | XMS_ITS ---
Author Organization [facility] Address [address] [place] [address] Care Team Providers Care Senior Service Aide Name Role Phone Unavailable Unavailable Unavailable Surgery Details Not on file Complications Check Surgery Details section. Procedure Estimated Blood Loss Check Surgery Details section. Procedure Findings Check Surgery Details section. Procedure Specimens Taken Check Surgery Details section.
== END 2023-12-24 08:02 | disposition home or self-care (01) ==
LOC: NFLDREF 12-25 08:28
PROVIDERS: PCP Family Medicine; Referring Provider Family Medicine; Visit Provider Family Medicine
DX: E78.5 Hyperlipidemia, unspecified (principal); I10 Essential (primary) hypertension; I48.21 Permanent atrial fibrillation; Z13.9 Encounter for screening, unspecified; Z51.81 Encounter for therapeutic drug level monitoring; Z79.01 Long term (current) use of anticoagulants
CPT/HCPCS: 80053; 80061; G0103

== ENCOUNTER 2024-02-04 17:45 | Emergency (ER) | payer MEDICARE, OTHER, SELFPAY ==
--- NOTE | 2024-02-04 | CRLHL7_ITS ---
For Patients: As a result of the Cures Act, medical imaging exams and procedure reports are released immediately into your electronic medical record. You may view this report before your referring provider. If you have questions, please contact your health care provider. Indication: FALL Technique: Three views of the right wrist. Comparison: None. Findings: Moderate to severe degenerative changes of the radiocarpal joint. Moderate to severe degenerative changes of the 1st carpometacarpal joint. Age indeterminate 4th metacarpal fracture deformity. Moderate vascular calcification. 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 Age indeterminate 4th metacarpal fracture deformity. Consider dedicated radiographs of the hand for further evaluation. Dictated by Patrick Hernandez MD @ 02/04/2024 6:41:20 PM (Electronically Signed)
--- NOTE | 2024-02-04 17:51 | CRLHL7_ITS ---
For Patients: As a result of the Century Cures Act, medical imaging exams and procedure reports are released immediately into your electronic medical record. You may view this report before your referring provider. If you have questions, please contact your health care provider. INDICATION: Fall. COMPARISON: None. TECHNIQUE: Noncontrast CT head. FINDINGS: Moderate generalized volume loss. No acute intracranial hemorrhage, acute infarct, mass-effect, or fracture. No midline shift. Otherwise, it no fractures of the visualized calvarium and skull base. Visualized paranasal sinuses and mastoid air cells are clear. IMPRESSION: 1. No acute intracranial abnormality. 2. Moderate generalized cerebral volume loss. Please note that all CT scans at this facility use dose modulation, iterative reconstruction, and/or weight-based dosing when appropriate to reduce radiation dose to as low as reasonably achievable. Dictated by Martin Melara MD @ 02/04/2024 6:39:53 PM (Electronically Signed)
--- NOTE | 2024-02-04 17:56 | CRLHL7_ITS ---
For Patients: As a result of the Cures Act, medical imaging exams and procedure reports are released immediately into your electronic medical record. You may view this report before your referring provider. If you have questions, please contact your health care provider. Indication: Fall Technique: Volumetric multidetector CT images of the cervical spine were obtained without the administration of IV contrast. Comparison: None available. Findings: The cervical vertebral body heights grossly maintained with moderate endplate subchondral cystic changes and Schmorl`s defects. There is mild reversal of the normal cervical lordosis with minimal anterolisthesis of C2 on C3 and C3 on C4. There is no displaced fracture or dislocation. Moderate to severe degenerative disc height loss and marginal osteophyte formation seen at every level. Moderate facet arthrosis. The paraspinous soft tissues are grossly within normal limits. Impression: Mild spasmodic reversal of the normal cervical lordosis without evidence of displaced fracture. Moderate degenerative changes of the intervertebral discs. Please note that all CT scans at this facility use dose modulation, iterative reconstruction, and/or weight-based dosing when appropriate to reduce radiation dose to as low as reasonably achievable. Dictated by Bi An MD @ 02/04/2024 6:41:31 PM (Electronically Signed)
--- NOTE | 2024-02-04 17:57 | ED_ITS ---
HPI - General Adult General Date Seen: 02/04/24 Chief complaint: Head Injury/Pain Stated complaint: Fall on head Time Seen by Provider: 02/04/24 17:52 Source: patient, RN notes reviewed and old records reviewed Mode of arrival: ambulatory Limitations: no limitations History of Present Illness HPI narrative: Patient is an 83-year-old male here with his . He was inflating a blowup mattress in the garage and says his foot got tangled up in the cord. He fell forward landing 1st on his left knee and then hitting his left forehead on the ground. He denies loss of consciousness/syncope, he does have a headache now, denies neck pain. He is ambulatory in the left knee without difficulty but he does have an abrasion there was some bleeding. He is anticoagulated on Coumadin, secondary to atrial fibrillation. He denies other injuries or complaints. Related Data Home Medications ?Medication ?Instructions ?Recorded ?Confirmed psyllium husk 0.4 gram capsule 0.4 g PO QDAY 07/01/22 01/21/24 (Metamucil) Previous Rx's ?Medication ?Instructions ?Recorded cyanocobalamin (vitamin B-12) 1,000 mcg PO QDAY #90 caps 07/01/22 1,000 mcg capsule metoprolol tartrate 25 mg tablet 25 mg PO QDAY #90 tabs 12/24/23 sertraline 100 mg tablet 100 mg PO QDAY #90 tabs 12/24/23 torsemide 20 mg tablet 40 mg (2 x 20 mg) PO QAM #90 tabs 12/24/23 warfarin 10 mg tablet 5 - 10 mg PO QDAY #60 tabs 01/12/24 Allergies Allergy/AdvReac Type Severity Reaction Status Date / Time No Known Allergies Allergy Verified 02/04/24 18:19 Review of Systems Status of ROS: Reports: 6 or more systems reviewed and unremarkable except as noted in History and below [facility] Medical History Vitamin B12 deficiency (~1988) ?E53.8 - Deficiency of other specified B group vitamins (ICD-10) Acute on chronic diastolic HF (heart failure) ?I50.33 - Acute on chronic diastolic (congestive) heart failure (ICD-10) History of colonic polyps ?Z86.010 - Personal history of colonic polyps (ICD-10) Precancerous skin lesion ?L98.9 - Disorder of the skin and subcutaneous tissue, unspecified (ICD-10) Pneumonia ?J18.9 - Pneumonia, unspecified organism (ICD-10) Incisional hernia without obstruction or gangrene ?K43.2 - Incisional hernia without obstruction or gangrene (ICD-10) Hemoptysis ?R04.2 - Hemoptysis (ICD-10) Atrial fibrillation (2005) ?I48.91 - Unspecified atrial fibrillation (ICD-10) History of endocarditis (2007) ?Z86.79 - Personal history of other diseases of the circulatory system (ICD- 10) History of left heart catheterization (2014) ?Z98.890 - Other specified postprocedural states (ICD-10) History of TIA (transient ischemic attack) (2015) ?Z86.73 - Personal history of transient ischemic attack (TIA), and cerebral infarction without residual deficits (ICD-10) Pulmonary nodule ?R91.1 - Solitary pulmonary nodule (ICD-10) Echocardiogram abnormal (2016) ?R93.1 - Abnormal findings on diagnostic imaging of heart and coronary circulation (ICD-10) Health care directive on file ?Z78.9 - Other specified health status (ICD-10) Surgical History History of vasectomy ?Z98.52 - Vasectomy status (ICD-10) History of coronary artery bypass graft ?Z95.1 - Presence of aortocoronary bypass graft (ICD-10) History of inguinal hernia repair (2001) ?Z98.890 - Other specified postprocedural states (ICD-10) ?Z87.19 - Personal history of other diseases of the digestive system (ICD-10) History of permanent cardiac pacemaker placement (2005) ?Z95.0 - Presence of cardiac pacemaker (ICD-10) History of aortic valve replacement with metallic valve (2006) ?Z95.4 - Presence of other heart-valve replacement (ICD-10) History of hemorrhoidectomy (2010) ?Z98.890 - Other specified postprocedural states (ICD-10) History of cholecystectomy (2010) ?Z90.49 - Acquired absence of other specified parts of digestive tract (ICD- 10) H/O tricuspid valve repair (2015) ?Z98.890 - Other specified postprocedural states (ICD-10) Hx of colonoscopy (04/12/19) ?Z98.890 - Other specified postprocedural states (ICD-10) Pacemaker (~2005) ?Z95.0 - Presence of cardiac pacemaker (ICD-10) Family History Brother Atrial fibrillation Prostate cancer Sister Breast cancer Social History Narrative: Exercises 3 to 4 times per week- walking 1 h, wood working, remodeling History of cigarette smoking- quit 2003. 40 pack years , retired from [employer], 3 adult kids Social drinker- 9/week What is your current living situation?: I presently have a place to live Problems where you live: declined to answer In the past 12 months, utilities in danger of being shut off: no In past 12 months, lack of transportation kept you from medical appts, meetings, work, or getting things needed for daily living: no In the past 12 mos, have been you worried that your food would run out before you had money to buy more?: never true In the past 12 mos, the food you bought just didn't last and you didn't have money to buy more?: never true Smoking Status: Never smoker How often do you have a drink containing alcohol: 4 or more times a week How many standard drinks containing alcohol do you have on a typical day: 1 or 2 AUDIT-C Alcohol total score: 4 Non-prescribed substance use: denies use How often does anyone, including family, friends and others, physically hurt you : never How often does anyone, including family, friends and others, insult or talk down to you: never How often does anyone, including family, friends and others, threaten you with harm: never How often does anyone, including family, friends and others, scream or curse at you: never Little interest or pleasure in doing things: not at all Feeling down, depressed, or hopeless: not at all Exam Narrative: Exam Narrative: Primary survey: Airway: Patent. Breathing: Nonlabored. Lungs clear. Circulation: Pulses intact. No external bleeding. Disability: GCS 15. Secondary survey: Vital signs reviewed In general, an alert, nontoxic elderly female. Head: Normocephalic. Eyes: Pupils are equal reactive. Extraocular movements full. ENT: He has a 1/2 cm laceration over the left eyebrow. Extra movements are full, no bony tenderness to the face. Neck: No midline cervical tenderness. No anterior neck trauma. Chest: No visible signs of chest trauma. No tenderness to palpation. Heart regular rate and rhythm. Lungs clear bilaterally. Abdomen: No visible signs of trauma. Soft, nondistended, nontender to palpation. Back: No visible signs of trauma. Nontender to palpation. Pelvis: Stable, nontender. Extremities: He has an abrasion over the left knee. No significant swelling or deformity. No bony tenderness, full range of motion. No other traumatic injuries to the extremities noted on initial exam, after patient went to CT he did relate to the nurse that he felt like his right wrist was kind of stiff, I do not see any obvious swelling or tenderness, no snuffbox tenderness. Neurologic: Alert, conversant, moves all extremities to command. Skin: Warm and dry, no abrasions or lacerations. Const: Vital Signs, click to edit/add: Vital Signs - 24 hr 02/04/24 18:06 02/04/24 18:45 02/04/24 19:01 Temperature 98.4 F Pulse Rate 70 Pulse Rate [Pulse Oximeter] 70 70 Respiratory Rate 16 19 Blood Pressure [Ri ght Upper Arm] 147/98 H 133/60 Pulse Oximetry 94 94 94 Oxygen Delivery Me thod Room Air Room Air Documenting provider has reviewed patient's vital signs: yes Course Course ED Course: Following brief initial evaluation, patient went for CT of the head as well as CT of the cervical spine. He had x-rays of his right wrist as well, by my review these did not show any acute findings although he has significant degenerative changes. Final radiology read of the ice wrist x-rays as follows:Patient: EMMANUEL GAITAN Facility: [facility] Site . Site : 1940 Study: XRay-Extremity Right 3 VIEWS-02/04/2024 6:13:35 PM Ordering Physician: Emmanuel Baker Final Report: Indication: FALL Technique: Three views of the right wrist. Comparison: None. Findings: Moderate to severe degenerative changes of the radiocarpal joint. Moderate to severe degenerative changes of the 1st carpometacarpal joint. Age indeterminate 4th metacarpal fracture deformity. Moderate vascular calcification. 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 Age indeterminate 4th metacarpal fracture deformity. Consider dedicated radiographs of the hand for further evaluation. I did review this 4th metacarpal injury with him, I can easily feel this on exam it seemed old to me when I did his initial exam, and he notes this as a prior injury. He does not have any tenderness there. With regard to the CT of the head and cervical spine, the CT of the head by my review shows no evidence of hemorrhage or other acute findings. Final radiology read as follows:Patient: EMMANUEL GAITAN Facility: [facility] Site . Site : 1940 Study: CT-Head WITHOUT-02/04/2024 6:11:08 PM Ordering Physician: Emmanuel Baker Final Report: INDICATION: Fall. COMPARISON: None. TECHNIQUE: Noncontrast CT head. FINDINGS: Moderate generalized volume loss. No acute intracranial hemorrhage, acute infarct, mass-effect, or fracture. No midline shift. Otherwise, it no fractures of the visualized calvarium and skull base. Visualized paranasal sinuses and mastoid air cells are clear. IMPRESSION: 1. No acute intracranial abnormality. 2. Moderate generalized cerebral volume loss. Please note that all CT scans at this facility use dose modulation, iterative reconstruction, and/or weight-based dosing when appropriate to reduce radiation dose to as low as reasonably achievable. Dictated by Martin Melara MD @ 02/04/2024 6:39:[address] cervical spine read by radiology as follows:Patient: EMMANUEL GAITAN Facility: [facility] Site . Site : 1940 Study: CT-Spine Cervical WITHOUT-02/04/2024 6:10:46 PM Ordering Physician: Emmanuel Baker Final Report: Indication: Fall Technique: Volumetric multidetector CT images of the cervical spine were obtained without the administration of IV contrast. Comparison: None available. Findings: The cervical vertebral body heights grossly maintained with moderate endplate subchondral cystic changes and Schmorl`s defects. There is mild reversal of the normal cervical lordosis with minimal anterolisthesis of C2 on C3 and C3 on C4. There is no displaced fracture or dislocation. Moderate to severe degenerative disc height loss and marginal osteophyte formation seen at every level. Moderate facet arthrosis. The paraspinous soft tissues are grossly within normal limits. Impression: Mild spasmodic reversal of the normal cervical lordosis without evidence of displaced fracture. Moderate degenerative changes of the intervertebral discs. Please note that all CT scans at this facility use dose modulation, iterative reconstruction, and/or weight-based dosing when appropriate to reduce radiation dose to as low as reasonably achievable. Dictated by Bi An MD @ 02/04/2024 6:41:31 PM Procedure note: With regard to the wound above his left eyebrow, bleeding was controlled at the time of my decision to repair. Area was cleaned, I elected to use glue. He did have a little bit of bleeding as I touch the tip of the glue dispenser 2 1 corner, the wound otherwise came together nicely without any bleeding. I kept an eye on that area for little bit and it stopped on its own. No significant hematoma. Otherwise tolerated well without immediate co mplication. I reviewed all this with the patient and his . At this time, there is no evidence of an acute injury to the right wrist in terms of bony injury. I did give him a wrist splint for comfort, if not improving over the next week to 10 days would recommend that he get repeat x-rays. Routine wound care for the abrasion and laceration, return for signs of infection. Dermabond care d iscussed. Vital Signs Vital signs: Initial Vital Signs Temperature 98.4 F 02/04/24 18:06 Temperature Source Temporal Artery Scan 02/04/24 18:06 Pulse Rate 70 02/04/24 18:06 Respiratory Rate 16 02/04/24 18:06 Blood Pressure 147/98 H 02/04/24 18:06 Blood Pressure Mean 114 H 02/04/24 18:06 Blood Pressure Position Semi-Fowlers 02/04/24 18:06 Pulse Oximetry 94 02/04/24 18:06 Oxygen Delivery Method Room Air 02/04/24 18:06 Vital Signs Temperature 98.4 F 02/04/24 18:06 Pulse Rate 70 02/04/24 18:06 Respiratory Rate 16 02/04/24 18:06 Blood Pressure 147/98 H 02/04/24 18:06 Pulse Oximetry 94 02/04/24 18:06 Oxygen Delivery Method Room Air 02/04/24 18:06 Temperature 98.4 F 02/04/24 18:06 Pulse Rate 70 02/04/24 19:01 Respiratory Rate 19 02/04/24 19:01 Blood Pressure 133/60 02/04/24 19:01 Pulse Oximetry 94 02/04/24 19:01 Oxygen Delivery Method Room Air 02/04/24 19:01 Discharge Plan Discharge Clinical Impression: Facial laceration, Abrasion of knee, left, Injury of right wrist Patient Disposition: Home, Self-Care Condition: Improved Instructions: Wrist Injury (ED), Laceration (DC) Additional Instructions: The glue placed on your cut should slough off over the next 1-2 weeks. You may continue to have a little bit of oozing from this area, this should stop as it heals. For significant bleeding, you can return to the ER. Keep an ointment such as Vaseline or Aquaphor on the scrape on your knee, do not use this on your cut as it can prematurely dissolve the glue. Splint on the right wrist for comfort. Your x-rays today do not show any evidence of a broken bone, but if the wrist is not feeling better over the next 1-2 weeks, you should be seen again by your clinic for repeat x-rays. Prescriptions: No Action psyllium husk [Metamucil] 0.4 gram capsule 0.4 g PO QDAY cyanocobalamin (vitamin B-12) 1,000 mcg capsule 1,000 mcg PO QDAY Qty: 90 4RF sertraline 100 mg tablet 100 mg PO QDAY Qty: 90 3RF metoprolol tartrate 25 mg tablet 25 mg PO QDAY Qty: 90 3RF torsemide 20 mg tablet 40 mg PO QAM Qty: 90 3RF warfarin 10 mg tablet 5 - 10 mg PO QDAY Qty: 60 0RF Protocol: Dose Management Condition: Thursday Dose/Route: 5 mg Instruction: 0.5 x 10 mg tablets Condition: Thursday Dose/Route: 10 mg Instruction: 1 x 10 mg tablet Condition: Thursday Dose/Route: 5 mg Instruction: 0.5 x 10 mg tablets Condition: Thursday Dose/Route: 10 mg Instruction: 1 x 10 mg tablet Condition: Dose/Route: 5 mg Instruction: 0.5 x 10 mg tablets Condition: Thursday Dose/Route: 10 mg Instruction: 1 x 10 mg tablet Condition: Thursday Dose/Route: 5 mg Instruction: 0.5 x 10 mg tablets Protocol Text: Adjustment Start Date: Thursday02/01/24 INR Value: 2.1 INR Date: 02/01/24 Recheck Date: 03/02/24 Rx Instructions: Take 10mg Thursday/Thursday/Thursday and 5mg all other days Follow Up/Referrals: Myrna Sol MD [Primary Care Provider] - Stand Alone Forms: We Info Instructions
[2024-02-04 18:06] VITALS: BP 147/98; PULSE 70; RESP 16; TEMP 36.9; O2SAT 94; BMI 25.1
[2024-02-04 18:45] VITALS: PULSE 70; O2SAT 94
--- OUTSIDE RECORDS SUMMARY | 2024-02-04 18:53 | XMS_ITS | Clinical Summary ---
Author Organization [facility] er Address [address] [place] [address] Care Team Providers Care Slab Polisher Name Role Phone None, Pcp Primary Care [...] Transient ischemic attack 07/10/2015 Overview: Evaluated in [place] 06/2015 Evaluated in [place] 06/2015 Status post tricuspid valve replacement 11/17/19 15 Overview: [facility] 11/2014 Dr. Petar Clark Fatigue 03/18/2013 Shortness of breath 03/15/2013 Heart valve replaced by other means 09/24/2012 Overview: [facility] 11/2014 Dr. 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 1 Other [...] Comments Blood Pressure 137/70 04/23/2022 2:44 PM [employer]ING MACHINE OPERATOR Pulse 71 04/23/2022 2:44 PM [employer] DEPOSITING MACHINE OPERATOR Temperature 36.6 ??C (97.8 ??F) 04/23/2022 2:44 PM CS T Respiratory Rate 17 04/23/2022 2:44 PM [employer]ING MACHINE OPERATOR Oxygen Saturation 97% 04/23/2022 2:44 PM [employer] DEPOSITING MACHINE OPERATOR Inhaled Oxygen Concentration - - Weight 82.3 kg (181 lb 8.4 oz) 04/23/2022 2:44 P M [employer]ITING MACHINE OPERATOR Height - - Body Mass Index - - Plan of Treatment Health Maintenance Due Date Last Done Comments Fall Risk Performed 11/10/1958 Zoster Vaccines (2 of 3) 06/04/2006 04/09/2006 COVID-19 Vaccine ( season) 2024 04/23/2023, 02/11/2022, 10/15/2021, Additional history exists Influenza Vaccine (#1) 2024 , 02/11/2022, 02/06/2021, Additional history exists DTaP,Tdap,and Td Vaccines (3 - Td or Tdap) 11/01/2024 11/01/2014, 11/01/2012, 11/24/2003, Additional history exists Pneumococcal Vaccine: 65+ Years Completed 08/07/2014, 02/01/2007, 02/17/2006 HPV Vaccines Aged Out No longer eligi ble based on patient's age to complete this topic Care Teams Slab Polisher Relationship Specialty Start Date End Date None, Pcp [address] [place] [id number] PCP - General Offal Worker 04/23/22
--- OUTSIDE RECORDS SUMMARY | 2024-02-04 18:53 | XMS_ITS | Referral Summary ---
Author Organization [facility] Address [address] [place] [address] Care Team Providers Care State Comptroller Name Role Phone Elsewhere, Pcp Primary Care Provider Unavailabl e Source Comments Patient records contain information from all sites at [facility]. For routine questions regarding patient records, call [phone] during business hours, M-F 8:00 AM - 5:00 PM Central Time. Record requests for emergency care only can be directed to [phone] at any time.[facility] Encounters Date Type Department Care Team Description 11/06/2023 4:00 AM CDT - 11/06/2023 11:59 PM CDT Hospital Encounter Department of Cardiovascular Diseases in [place], [place] [address] [place] [address] Lena Luna M.D. Encounter For Checking And Testing Of Cardiac Pacemaker Pulse Generator Battery Discharge Disposition: Home or Self Care from Last 3 Months Allergies No known [...] Ischemic Attack 07/10/2015 Overview (09/20/2021): Evaluated in [place] 06/2015 Shortness Of Breath 03/15/2013 Replacement Heart Valve Tissue 09/24/2012 Overview (09/20/2021): [facility] 11/2014 Dr. Petar Clark Followed by Dr Alvarado in [place] yearly February Other Specified Extrapyramidal And Movement [...] week 05/08/2022 How often do you attend [facility] or church services? More than 4 times per year 05/08/2022 Do you belong to any clubs o r organizations such as religious groups, unions, fraternal or athletic groups, or [...] care, and heating? Not very hard 05/08/2022 [facility] - Occupational Stress [...] place to sleep or slept in a longterm (including now)? No 05/08/2022 Nutrition Answer Date [...] Comments Blood Pressure 97/61 03/13/2023 1:50 PM TREATING INSPECTOR Pulse 60 03/13/2023 1:50 PM TREATING INSPECTOR Temperature 36.6 ??C (97.9 ??F) 03/13/2023 1:50 PM CS T Respiratory Rate 28 04/24/2022 9:10 AM TREATING INSPECTOR Oxygen Saturation 91% 03/13/2023 1:50 PM TREATING INSPECTOR Inhaled Oxygen Concentration - - Weight 79.9 kg (176 lb 2.4 oz) 03/13/2023 1:50 P M TREATING INSPECTOR Height 176.8 cm (5' 9.61) 03/13/2023 1:50 PM CS T Body Mass Index 25.56 03/13/2023 1:50 PM TREATING INSPECTOR Plan of Treatment Upcoming Encounters Date Type Department Care Team (Latest Contact Info) Description 04/15/2024 11:00 AM TREATING INSPECTOR Clinical Communication Virtual Review in [place] [employer], [place] [address] [place] [address] 04/19/2024 10:15 AM TREATING INSPECTOR Appointment Department of Radiology, [facility], in [place], [place] [address] [place] [phone] Jen Salazar M.D. [address] [place] [phone] 04/19/2024 2:00 PM TREATING INSPECTOR Office Visit Division of Pulmonary Medicine in [place] [employer], [place] [address] [place] [phone] Jen Salazar M.D. [address] [place] [phone] Medical Devices Implanted Type Area Hard Metals Hand Engraver Device Identifier Shelf Expiration Date Model / Serial / Lot Lead Guidant Baron [id number] Implanted:11/02 (Quantity not on file) Cardiac Lead Other/Legacy - See Implant Description Guidant / [id number] / Description:LEAD Guidant Cor p [id number] Flextend Lead Guidant Baron [id number] Implanted:11/02 (Quantity not on file) Cardiac Lead Other/Legacy - See Implant Description Guidant / [id number] / Description:LEAD Guidant Cor p [id number] Flextend Valve Aortic Carbomedics 25mm - Chappell [id number] Implanted:Qty: 1 on 09/10/2007 Cardiac Valve Prosthesis Aorta Carbomedics Description:Device Manufactu rer - Carbomedics. Body Location - Other. Aortic. Device Status Text - [id number]. Ring Annuloflex Carbomedics 28mm - Chappell [id number] Implanted:Qty: 1 on 11/01/2014 Cardiac Valve Prosthesis Other/Legacy - See Implant Description Carbomedics Description:Device Manufactu rer - Carbomedics. Body Location - Other. Tricuspid. Device Status Text - [id number]. Tennyson Eddie Fuzzy 6 X 1 - Chappell [id number] Implanted:Qty: 1 on 09/10/2007 Mesh or Patch Impra Description:Device Manufactu rer - Impra. Device Status Text - [id number]. Tennyson Eddie Fuzzy 1 X 1 - Chappell 1667 Implanted:Qty: 2 on 09/10/2007 Mesh or Patch Shiftgig Description:Device Manufactu rer - Enplug. Device Status Text - [id number]. [facility] Data - [id number]. Ocular Lens Ocular Lens Bilateral: Eye Pacemaker [employer] [id number] Implanted:05/2015 (Quantity not on file) Pacemaker Other/Legacy - See Implant Description [employer] / [id number] / Description:Pacemaker [employer] [id number] ACCOLADE EL Hemashield Woven-Str 28 X 30 - Chappell [id number] Implanted:Qty: 1 on 09/10/2007 Vascular Graft Aorta Other/Legacy - See Implant Description Description:Device Manufactu rer - [employer]. Body Location - Other. Aortic. Device Status Text - [id number]. Explanted Type Area Hard Metals Hand Engraver Device Identifier Shelf Expiration Date Model / Serial / Lot Pacemaker Guidant Baron [id number] Implanted:11/29 (Quantity not on file) Explanted:01/02 (Quantity not on file) Pacemaker Chest Guidant / [id number] / Description:Pacemaker Guidan t Baron [id number] Procedures Procedure Name Priority [...] 1:58 PM CDT) Date Time Interrogation Session [id number] [facility] Implantable Pulse Generator Hard Metals Hand Engraver [employer] [facility] Implantable Pulse Generator Model L321 ACCOLADE EL [facility] Implantable Pulse Generator Serial Number [id number] [facility] Type Interrogation Session Remote [facility] Clinic Name [facility] [place] [facility] Implantable Pulse Generator Type Pacemaker [facility] Implantable Pulse Generator Implant Date 20160103 [facility] Implantable Lead Hard Metals Hand Engraver Guidant [facility] Implantable Lead Model 4086 Flextend [facility] Implantable Lead Serial Number [id number] [facility] Implantable Lead Implant Date 20041129 [facility] Implantable Lead Polarity Type Bipolar Lead [facility] Implantable Lead Location Detail 1 Endocardial [facility] Implantable Lead Special Function Lead length: 45 cm [facility] Implantable Lead Location Right Atrium [facility] Implantable Lead Hard Metals Hand Engraver [employer] [facility] Implantable Lead Model 4087 [employer] [facility] Implantable Lead Serial Number [id number] [facility] Implantable Lead Implant Date 20041129 [facility] Implantable Lead Polarity Type Bipolar Lead [facility] Implantable Lead Location Detail 1 Endocardial [facility] Implantable Lead Special Function Lead length: 52 cm [facility] Implantable Lead Location Right Ventricle [facility] Abelino Setting Mode (NBG Code) VVIR [facility] [place] Setting Lower Rate Limit 70 {beats}/ min [facility] [place] Setting Maximum Sensor Rate 110 {beats}/ min [facility] Abelino Setting AT Mode Switch Rate 170 {beats}/ min [facility] Lead Channel Setting Sensing Sensitivity 0.15 mV [facility] Lead Channel Setting Sensing Adaptation Mode Fixed [facility] Lead Channel Setting Sensing Polarity Bipolar [facility] Lead Channel Setting Sensing Sensitivity 4.0 mV [facility] Lead Channel Setting Sensing Adaptation Mode Fixed [facility] Lead Channel Setting Pacing Polarity Bipolar [facility] Lead Channel Setting Pacing Pulse Width 0.4 ms [facility] Lead Channel Setting Pacing Amplitude 2.5 V [facility] Lead Channel Setting Pacing Capture Mode Adaptive [facility] Zone Setting Type Category VT [facility] Zone Setting Detection Interval 375 ms [facility] Lead Channel Impedance Value 1,204 ohm [facility] Lead Channel Pacing Threshold Amplitude 2.0 V [facility] Lead Channel Pacing Threshold Pulse Width 0.4 ms [facility] Battery Date Time of Measurements 74513411754019 [facility] Battery Status Beginning of Service [facility] Battery Remaining Longevity 96 mo [facility] Battery Remaining Percentage 93 % [facility] Abelino Statistic Date Time Start [facility] Statistic Date Time End [facility] Abelino Statistic RA Percent Paced [...] SYSTEM Episode Statistic Recent Date Time End [id number] [facility] Episode Statistic Recent Date Time Start [id number] [facility] Episode Statistic Recent Date Time End [id number] [facility] Episode Statistic Recent Date Time Start [facility] Episode Statistic Recent Date Time End [id number] [facility] Episode Statistic Recent Date Time Start 12674526119582 [facility] Episode Statistic Recent Date Time End 70291937654815 [facility] Episode Type Category Periodic EGM [facility] Episode Date Time 79250871767812 [facility] Episode Type Category Other [facility] Episode Date Time 54176082617126 [facility] Episode Type Category VT [facility] Episode Date Time 43420752979525 [facility] Episode Duration 12 s [facility] Episode Type Category VT [facility] Episode Date Time 58481056737840 [facility] Episode Duration 17 s [facility] Episode Type Category VT [facility] Episode Date Time 28027810731300 [facility] Episode Duration 13 s [facility] Episode Type Category VT [facility] Episode Date Time 08234642349838 [facility] Episode Duration 15 s [facility] Episode Type Category VT [facility] Episode Date Time 81233833347015 [facility] Episode Duration 15 s [facility] Anatomical Region Laterality Modality Other 11/06/2023 2:11 AM CDT Narrative 2023 8:07 AM CDT PURPOSE OF VISIT: ??Routine remote transmission. PRESENTING EGM: ??CHEMIST BIOLOGICAL at 70 bpm. ?? VENTRICULAR ARRHYTHMIAS: ?Sustained [...] Abdulkadir Meadows M.D. LAB BLOOD NON ADD-ON [facility] [address] [place] [address], [facility] [address] [place] [address] * Sodium (12/02/2022 7:35 AM CDT) Sodium, S 141 135 - 145 mmol/L 12/02/2022 8:37 AM CDT DTL Blood (Blood, Venous) 12/02/2022 7:35 AM CDT 12/02/2022 8:09 AM CDT Abdulkadir Meadows M.D. LAB BLOOD ADD-ON Performing Organization Address City/[facility]/[place] [address] * Potassium (12/02/2022 7:35 AM CDT) Potassium, S 4.9 3.6 - 5.2 mmol/L 12/02/2022 8:37 AM CDT DTL Blood (Blood, Venous) 12/02/2022 7:35 AM CDT 12/02/2022 8:09 AM CDT Abdulkadir Meadows M.D. LAB BLOOD ADD-ON Performing Organization Address [facility] Co de Phone Number [facility] [address] [place] [address] * (ABNORMAL) Creatinine, POCT (09/30/2022 6:59 AM CDT) Creatinine, POCT, B 1.8(H) 0.7 - 1.4 mg/dL 09/30/2022 7:01 AM CDT PCDT Comment: ----ADDITIONAL INFORMATION---- Performed at the Point of Care Blood 09/30/2022 6:59 AM CDT 09/30/2022 7:01 AM CDT Unknown Provider LAB POCT ORDERABLES - DEVICE Performing Organization Address City/[facility]/ZIP Co de Phone Number [facility] [address] [place] [address], [facility] PCDT [facility] [address] [place] [phone] from Last 3 Months or Most Recently Relevant to Health Maintenance Advance Directives For more information, please contact: [phone] Documents on File Type Date Recorded 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 See document viewer. * Full Code (Latest Code Status on File) Date Activated Date Inactivated Comments 11/25/2020 4:47 AM 11/29/2020 6:51 PM Question Answer Comments Full Code: Discussed Care Teams State Comptroller Relationship Specialty Start Date End Date Elsewhere, Pcp PCP - General Family Medicine 11/27/20 Mary Ann Sol [address] [facility] [place] [address] Lead Cytogenetic Technologist Physician 01/17/19
--- OUTSIDE RECORDS SUMMARY | 2024-02-04 18:53 | XMS_ITS ---
Author Organization [facility] Address [address] [place] [address] Care Team Providers Care Geographical Historian Name Role Phone Unavailable Unavailable Unavailable Surgery Details Not on file Complications Check Surgery Details section. Procedure Estimated Blood Loss Check Surgery Details section. Procedure Findings Check Surgery Details section. Procedure Specimens Taken Check Surgery Details section.
--- OUTSIDE RECORDS SUMMARY | 2024-02-04 18:53 | XMS_ITS | Clinical Summary ---
Author Organization [facility] Address [address] [place] [address] Care Team Providers Care Ironer Name Role Phone Elsewhere, Pcp Primary Care Provider Unavailabl e Source Comments Patient records contain information from all sites at [facility]. For routine questions regarding patient records, call [phone] during business hours, M-F 8:00 AM - 5:00 PM Central Time. Record requests for emergency care only can be directed to [phone] at any time.[facility] Allergies No known active allergies Medications Medication [...] Ischemic Attack 07/10/2015 Overview (09/20/2021): Evaluated in [place] 06/2015 Shortness Of Breath 03/15/2013 Replacement Heart Valve Tissue 09/24/2012 Overview (09/20/2021): [facility] 11/2014 Dr. Petar Clark Followed by Dr Alvarado in [place] yearly February Other Specified Extrapyramidal And Movement Diso rders 10/04/2009 Other Abnormal Glucose 10/12/2008 Resolved Problems Problem Noted Date Diagnosed Date Resolved Date Gastroesophageal Reflux Disease NOS 04/03/2021 09/20/2021 Encounters Date Type Department Care Team Description 11/06/2023 4:00 AM CDT - 11/06/2023 11:59 PM CDT Hospital Encounter Department of Cardiovascular Diseases in [place], [place] [address] [place] [address] Lena Luna M.D. Encounter For Checking And Testing Of Cardiac Pacemaker Pulse Generator Battery Discharge Disposition: Home or Self Care from Last 3 Months Immunizations Name Administration Dates Next Due Influenza Split 02/01/2007 PPSV23 02/01/2007 Family History Medical History Relation Name Comments Melanoma Brother 1 Quan gross Sleep apnea Brother 1 Quan gross Colon polyps Brother 2 Sheng dynile Melanoma Sister Emmy de la rosa Relation Name Status Comments Brother 1 Quan dykema Brother 2 Sheng dykema Sister Emmy de la rosa Social History Tobacco Use [...] often do you attend chur ch or advent services? More than 4 times per year 05/08/2022 Do you belong to any clubs o r organizations such as evangelical groups, unions, fraternal or athletic groups, or [...] care, and heating? Not very hard 05/08/2022 [facility] - Occupational [...] place to sleep or slept in a fci (including now)? No 05/08/2022 Nutrition Answer Date [...] Comments Blood Pressure 97/61 03/13/2023 1:50 PM DIGITAL FORENSICS INVESTIGATOR Pulse 60 03/13/2023 1:50 PM DIGITAL FORENSICS INVESTIGATOR Temperature 36.6 ??C (97.9 ??F) 03/13/2023 1:50 PM CS T Respiratory Rate 28 04/24/2022 9:10 AM DIGITAL FORENSICS INVESTIGATOR Oxygen Saturation 91% 03/13/2023 1:50 PM DIGITAL FORENSICS INVESTIGATOR Inhaled Oxygen Concentration - - Weight 79.9 kg (176 lb 2.4 oz) 03/13/2023 1:50 P M DIGITAL FORENSICS INVESTIGATOR Height 176.8 cm (5' 9.61) 03/13/2023 1:50 PM CS T Body Mass Index 25.56 03/13/2023 1:50 PM DIGITAL FORENSICS INVESTIGATOR Plan of Treatment Upcoming Encounters Date Type Department Care Team (Latest Contact Info) Description 04/15/2024 11:00 AM DIGITAL FORENSICS INVESTIGATOR Clinical Communication Virtual Review in [place], [place] [address] [place] [address] 04/19/2024 10:15 AM DIGITAL FORENSICS INVESTIGATOR Appointment Department of Radiology, [facility], in [place], [place] [address] [place] [phone] Jen Salazar M.D. [address] [place] [phone] 04/19/2024 2:00 PM DIGITAL FORENSICS INVESTIGATOR Office Visit Division of Pulmonary Medicine in [place], [place] [address] [place] [phone] Jen Salazar M.D. [address] [place] [phone] Health Maintenance Due Date Last Done Comments Zoster Vaccines (2 of 3) 06/04/2006 04/09/2006 RSV vaccine - (32-3 6 weeks) or 60+ years (1 - 1-dose 75+ series) 11/10/2014 Depression Screening (Annual PHQ-2) 05/04/2023 Fall Risk Screen (Annual) 05/04/2023 Creatinine Level (Kidney Fun ction Test) 10/01/2023 09/30/2022, 02/06/2022, 10/18/2021, Additional history exists Fasting Glucose for Diabetes Screening 12/03/2023 12/02/2022, 02/06/2022, 10/18/2021, Additional history exists Potassium Level 12/03/2023 12/02/2022, 10/2021, 02/06/2022, Additional history exists Sodium Level 12/03/2023 12/02/2022, 10/2021, 10/18/2021, Additional history exists COVID-19 Vaccine (2023-2 5 season) 2024 04/23/2023, 02/11/2022, 10/15/2021, Additional history exists Influenza Vaccine (#1) 2024 , 02/11/2022, 02/06/2021, Additional history exists DTaP,Tdap,and Td Vaccines (3 - Td or Tdap) 11/01/2024 11/01/2014, 11/01/2012, 11/24/2003, Additional history exists Pneumococcal vaccine (65+ years) Completed 08/07/2014, 02/01/2007, 02/17/2006 Medical Devices Implanted Type Area Customer Service Analyst Device Identifier Shelf Expiration Date Model / Serial / Lot Lead Guidant Baron [id number] Implanted:11/02 (Quantity not on file) Cardiac Lead Other/Legacy - See Implant Description Guidant / [id number] / Description:LEAD Guidant Cor p [id number] Flextend Lead Guidant Baron [id number] Implanted:11/02 (Quantity not on file) Cardiac Lead Other/Legacy - See Implant Description Guidant / [id number] / Description:LEAD Guidant Cor p [id number] Flextend Valve Aortic Carbomedics 25mm - Chappell [id number] Implanted:Qty: 1 on 09/10/2007 Cardiac Valve Prosthesis Aorta Carbomedics Description:Device Manufactu rer - Carbomedics. Body Location - Other. Aortic. Device Status Text - [id number]. Ring Annuloflex Carbomedics 28mm - Chappell [id number] Implanted:Qty: 1 on 11/01/2014 Cardiac Valve Prosthesis Other/Legacy - See Implant Description Carbomedics Description:Device Manufactu rer - Carbomedics. Body Location - Other. Tricuspid. Device Status Text - [id number]. [place] Eddie Fuzzy 6 X 1 - Chappell [id number] Implanted:Qty: 1 on 09/10/2007 Mesh or Patch Impra Description:Device Manufactu rer - Impra. Device Status Text - [id number]. [place] Eddie Fuzzy 1 X 1 - Chappell [id number] Implanted:Qty: 2 on 09/10/2007 Mesh or Patch [employer]ands Description:Device Manufactu rer - DeRoyal. Device Status Text - [id number]. [facility] Data - [id number]. Ocular Lens Ocular Lens Bilateral: Eye Pacemaker Indore Scientific [id number] Implanted:05/2015 (Quantity not on file) Pacemaker Other/Legacy - See Implant Description Indore Scientific / [id number] / Description:Pacemaker Indore Scientific [id number] ACCOLADE EL Hemashield Woven-Str 28 X 30 - Chappell [id number] Implanted:Qty: 1 on 09/10/2007 Vascular Graft Aorta Other/Legacy - See Implant Description Description:Device Manufactu rer - Meadox. Body Location - Other. Aortic. Device Status Text - [id number]. Explanted Type Area Customer Service Analyst Device Identifier Shelf Expiration Date Model / Serial / Lot Pacemaker Guidant Baron [id number] Implanted:11/29 (Quantity not on file) Explanted:01/02 (Quantity not on file) Pacemaker Chest Guidant / [id number] / Description:Pacemaker Guidan t Baron [id number] Procedures Procedure Name Priority [...] 1:58 PM CDT) Date Time Interrogation Session [id number] [employer] LAB SYSTEM Implantable Pulse Generator Customer Service Analyst [employer] LAB SYSTEM Implantable Pulse Generator Model L321 ACCOLADE EL [facility] Implantable Pulse Generator Serial Number [id number] [facility] Type Interrogation Session Remote [facility] Clinic Name [facility] [place] [facility] Implantable Pulse Generator Type Pacemaker [facility] Implantable Pulse Generator Implant Date 20160103 [facility] Implantable Lead Customer Service Analyst Guidant [facility] Implantable Lead Model 4086 Flextend [facility] Implantable Lead Serial Number [id number] [facility] Implantable Lead Implant Date 20041129 [facility] Implantable Lead Polarity Type Bipolar Lead [facility] Implantable Lead Location Detail 1 Endocardial [facility] Implantable Lead Special Function Lead length: 45 cm [facility] Implantable Lead Location Right Atrium [facility] Implantable Lead Customer Service Analyst Guidant [facility] Implantable Lead Model 4087 Flextend [facility] Implantable Lead Serial Number [id number] [facility] Implantable Lead Implant Date 20041129 [facility] Implantable Lead Polarity Type Bipolar Lead [facility] Implantable Lead Location Detail 1 Endocardial [facility] Implantable Lead Special Function Lead length: 52 cm [facility] Implantable Lead Location Right Ventricle [facility] Abelino Setting Mode (NBG Code) VVIR [facility]ino Setting Lower Rate Limit 70 {beats}/ min [facility]ino Setting Maximum Sensor Rate 110 {beats}/ min [facility] Abelino Setting AT Mode Switch Rate 170 {beats}/ min [facility] Lead Channel Setting Sensing Sensitivity 0.15 mV [facility] Lead Channel Setting Sensing Adaptation Mode Fixed [facility] Lead Channel Setting Sensing Polarity Bipolar [facility] Lead Channel Setting Sensing Sensitivity 4.0 mV [facility] Lead Channel Setting Sensing Adaptation Mode Fixed [facility] Lead Channel Setting Pacing Polarity Bipolar [facility] Lead Channel Setting Pacing Pulse Width 0.4 ms [facility] Lead Channel Setting Pacing Amplitude 2.5 V [facility] Lead Channel Setting Pacing Capture Mode Adaptive [facility] Zone Setting Type Category VT [facility] Zone Setting Detection Interval 375 ms [facility] Lead Channel Impedance Value 1,204 ohm [facility] Lead Channel Pacing Threshold Amplitude 2.0 V [facility] Lead Channel Pacing Threshold Pulse Width 0.4 ms [facility] Battery Date Time of Measurements [facility] Battery Status Beginning of Service [facility] Battery Remaining Longevity 96 mo [facility] Battery Remaining Percentage 93 % [facility] Abelino Statistic Date Time Start [facility] Abelino Statistic Date Time End [facility] Abelino Statistic RA Percent Paced 0 % [facility] Abelino Statistic RV Percent Paced [...] [facility] Episode Date Time [id number] [facility] Episode Type Category Other [facility] Episode Date Time [id number] [facility] Episode Type Category [facility] Episode Date Time [id number] [facility] Episode Duration 12 s [facility] Episode Type Category [facility] Episode Date Time [id number] [facility] Episode Duration 17 s [facility] Episode Type Category [facility] Episode Date Time [id number] [facility] Episode Duration 13 s [facility] Episode Type Category [facility] Episode Date Time [id number] [facility] Episode Duration 15 s [facility] Episode Type Category VT [facility] Episode Date Time [id number] [facility] Episode Duration 15 s [facility] Anatomical Region Laterality Modality Other 11/06/2023 2:11 AM CDT Narrative 2023 8:07 AM CDT PURPOSE OF VISIT: ??Routine remote transmission. PRESENTING EGM: ??KENNEL OPERATOR at 70 bpm. ?? VENTRICULAR ARRHYTHMIAS: ?Sustained [...] Abdulkadir Meadows M.D. LAB BLOOD NON ADD-ON [facility] [address] [place] [address], [facility] [address] [place] [address] * Sodium (12/02/2022 7:35 AM CDT) Sodium, S 141 135 - 145 mmol/L 12/02/2022 8:37 AM CDT DTL Blood (Blood, Venous) 12/02/2022 7:35 AM CDT 12/02/2022 8:09 AM CDT Abdulkadir Meadows M.D. LAB BLOOD ADD-ON [facility] [address] [place] [address], [facility] [address] [place] [address] * Potassium (12/02/2022 7:35 AM CDT) Potassium, S 4.9 3.6 - 5.2 mmol/L 12/02/2022 8:37 AM CDT DTL Blood (Blood, Venous) 12/02/2022 7:35 AM CDT 12/02/2022 8:09 AM CDT Abdulkadir Meadows M.D. LAB BLOOD ADD-ON Performing Organization Address [facility] Co de Phone Number [facility] [address] [place] [address], [facility] DTL [facility] [address] [place] [address] * (ABNORMAL) Creatinine, POCT (09/30/2022 6:59 AM CDT) Creatinine, POCT, B 1.8(H) 0.7 - 1.4 mg/dL 09/30/2022 7:01 AM CDT PCDT Comment: ----ADDITIONAL INFORMATION---- Performed at the Point of Care Blood 09/30/2022 6:59 AM CDT 09/30/2022 7:01 AM CDT Unknown Provider LAB POCT ORDERABLES - DEVICE Performing Organization Address City/[facility] Co de Phone Number [facility] PER[facility] [address] [place] [address], [facility] PCDT [facility] P[facility] [address] [place] [address] from Last 3 Months or Most Recently Relevant to Health Maintenance Advance Directives For more information, please contact: [phone] Documents on File Type Date Recorded Patient Medical Pathologist Expl anation Advance Directives 11/01/2014 12:00 AM Lega cy document. See document viewer. * Full Code (Latest Code Status on File) Date Activated Date Inactivated Comments 11/25/2020 4:47 AM 11/29/2020 6:51 PM Question Answer Comments Full Code: Discussed Care Teams Ironer Relationship Specialty Start Date End Date Elsewhere, Pcp PCP - General Family Medicine 11/27/20 Mary Ann Sol [address] [facility] [place] [phone] Headhunter Physician 01/17/19
--- OUTSIDE RECORDS SUMMARY | 2024-02-04 18:53 | XMS_ITS | Encounter Summary ---
Author Organization [facility] Address [address] [place] [address] Care Team Providers Care Director Of Supply Chain Name Role Phone Elsewhere, Pcp Primary Care Provider Unavailabl e Reason for Visit * Reason Onset Date Comments Referral 10/14/2023 Encounter Details Date Type Department Care Team (Late st Contact Info) Description 10/14/2023 Clinical Communication Department of Dermatology in [place], [place] [address] [place] [phone] Abhi Correa M.D. [address] [place] [phone] Referral Social History Tobacco Use Types Packs/Day [...] often do you attend chur ch or adventist services? More than 4 times per year 05/08/2022 Do you belong to any clubs o r organizations such as christian groups, unions, fraternal or athletic groups, or [...] care, and heating? Not very hard 05/08/2022 [facility] Occupat ional Health - Occupational [...] place to sleep or slept in a fdc (including now)? No 05/08/2022 Nutrition Answer Date [...] as of this encounter Plan of Treatment Upcoming Encounters Date Type Department Care Team (Latest Contact Info) Description 04/15/2024 11:00 AM SCIENCE TECHNICIAN Clinical Communication Virtual Review in [place], [place] [address] [place] [address] 04/19/2024 10:15 AM SCIENCE TECHNICIAN Appointment Department of Radiology, [facility], in [place], [place] [address] [place] [phone] Jen Salazar M.D. [address] [place] [address] 04/19/2024 2:00 PM SCIENCE TECHNICIAN Office Visit Division of Pulmonary Medicine in [place], [place] [address] [place] [address] Jen Salazar M.D. [address] [place] [address] documented as of this encounter Visit Diagnoses Not on filedocumented in this encounter Care Teams Director Of Supply Chain Relationship Specialty Start Date End Date Elsewhere, Pcp PCP - General Family Medicine 11/27/20 Mary Ann Sol [address] [place] [address] Resource Management Planner Physician 01/17/19 documented as of this encounter
--- OUTSIDE RECORDS SUMMARY | 2024-02-04 18:53 | XMS_ITS | Encounter Summary ---
Author Organization [facility] Address [address] [place] [address] Care Team Providers Care Airplane Pilot Helper Name Role Phone Elsewhere, Pcp Primary Care Provider Unavailabl e Encounter Details Date Type Department Care Team (Latest Contact Info) Description 11/06/2023 4:00 AM CDT - 11/06/2023 11:59 PM CDT Hospital Encounter Department of Cardiovascular Diseases in [place], [place] [address] [place] [address] Lena Luna M.D. [address] [place] [address] Encounter For Checking And Testing Of Cardiac [...] any clubs o r organizations such as mormonism groups, unions, fraternal or athletic groups, or [...] care, and heating? Not very hard 05/08/2022 [facility] Occupat ional Health - Occupational [...] place to sleep or slept in a group home (including now)? No 05/08/2022 Nutrition Answer Date [...] (Latest Contact Info) Description 04/15/2024 11:00 AM ORDNANCE OFFICER Clinical Communication Virtual Review in [place], [place] 200 [place] [address] 04/19/2024 10:15 AM ORDNANCE OFFICER Appointment Department of Radiology, [facility], in [address] [phone] Jen Salazar M.D. [address] [place] [phone] 04/19/2024 2:00 PM ORDNANCE OFFICER Office Visit Division of Pulmonary Medicine in [address] [phone] Jen Salazar M.D. [address] [place] [phone] documented as of this encounter Procedures Procedure Name Priority Date/Time Associated Diagnosis Comments PACER REMOTE FOLLOW UP Routine 11/10/2023 1:58 PM CDT Encounter For Checking And Testing Of Cardiac Pacemaker Pulse Generator Battery documented in this encounter Results * PACER REMOTE FOLLOW UP (11/10/2023 1:58 PM CDT) Date Time Interrogation Session [id number] [employer] LAB SYSTEM Implantable Pulse Generator Soft Sugar Operator Head [employer] LAB SYSTEM Implantable Pulse Generator Model L321 ACCOLADE EL [facility] SYSTEM Implantable Pulse Generator Serial Number [id number] [facility] SYSTEM Type Interrogation Session Remote [facility] Clinic Name [facility] [place] [facility] Implantable Pulse Generator Type Pacemaker [facility] Implantable Pulse Generator Implant Date 20160103 [facility] Implantable Lead Soft Sugar Operator Head Guidant [facility] Implantable Lead Model 4086 Flextend [facility] Implantable Lead Serial Number [id number] [facility] SYSTEM Implantable [...] [facility] Implantable Lead Soft Sugar Operator Head Guidant [facility] Implantable Lead Model 4087 Flextend [facility] Implantable Lead Serial Number [id number] [facility] SYSTEM Implantable [...] Abelino Statistic RA Percent Paced 0 % [facility] Abelino Statistic RV Percent Paced [...] [facility] Episode Date Time [id number] [facility] Episode Type Category Other [facility] Episode Date Time [id number] [facility] Episode Type Category VT [facility] Episode Date Time [id number] [facility] Episode Duration 12 s [facility] Episode Type Category VT [facility] Episode Date Time [id number] [facility] Episode Duration 17 s [facility] Episode Type Category VT [facility] Episode Date Time [id number] [facility] Episode Duration 13 s [facility] Episode Type Category VT [facility] Episode Date Time [id number] [facility] Episode Duration 15 s [facility] Episode Type Category VT [facility] Episode Date Time [id number] [facility] Episode Duration 15 s [facility] Anatomical Region Laterality Modality Other 11/06/2023 2:11 AM CDT Narrative 2023 8:07 AM CDT PURPOSE OF VISIT: ??Routine remote transmission. PRESENTING EGM: ??ACUTE DIALYSIS NURSE at 70 bpm. ?? VENTRICULAR ARRHYTHMIAS: ?Sustained [...] Battery documented in this encounter Care Teams Airplane Pilot Helper Relationship Specialty Start Date End Date Elsewhere, Pcp PCP - General Family Medicine 11/27/20 Mary Ann Sol [address] [place] [address] E Business Specialist Physician 01/17/19 documented as of this encounter
--- OUTSIDE RECORDS SUMMARY | 2024-02-04 18:53 | XMS_ITS | Encounter Summary ---
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 Social History Tobacco [...] often do you attend chur ch or muslim services? More than 4 times per year [...] care, and heating? Not very hard 05/08/2022 [facility] Questionnaire Answer [...] place to sleep or slept in a long-term (including now)? No 05/08/2022 Nutrition Answer Date [...] Savannah Cota R.N. - 03/16/2023 9:57 AM SEPTIC TANK INSTALLER Images from the original note were not [...] report is in epic Thank you Savannah. IC TANK INSTALLER documented in this encounter Plan of Treatment Upcoming Encounters Date Type Department Care Team (Latest Contact Info) Description 04/15/2024 11:00 AM SEPTIC TANK INSTALLER Clinical Communication Virtual Review in [place], [place] [address] [place] [address] 04/19/2024 10:15 AM SEPTIC TANK INSTALLER Appointment Department of Radiology, [facility], in [place], [place] [address] [place] [phone] Jen Salazar M.D. [address] [place] [phone] 04/19/2024 2:00 PM SEPTIC TANK INSTALLER Office Visit Division of Pulmonary Medicine in [place], [place] [address] [place] [phone] Jen Salazar M.D. [address] [place] [phone] documented as of this encounter Visit Diagnoses Not on filedocumented in this encounter Care Teams Antisqueak Applier Relationship Specialty Start Date End Date Elsewhere, Pcp PCP - General Family Medicine 11/27/20 Mary Ann Sol [address] [place] [address] Noodle Maker Physician 01/17/19 documented as of this encounter
[2024-02-04 19:01] VITALS: BP 133/60; PULSE 70; RESP 19; O2SAT 94
== END 2024-02-04 19:48 | disposition home or self-care (01) ==
PROVIDERS: Emergency Provider Emergency Medicine; PCP Family Medicine
DX: M25.562 Pain in left knee (principal)
CPT/HCPCS: 70450; 72125; 73110; 99283; 99284

== ENCOUNTER 2024-04-26 06:32 | Emergency (ER) | payer MEDICARE, OTHER, SELFPAY ==
[2024-04-26 06:40] VITALS: BP 157/76; PULSE 71; RESP 16; TEMP 36.6; O2SAT 95; BMI 25.1
--- NOTE | 2024-04-26 07:20 | ED.GENADULT ---
HPI - General Adult General Chief complaint: Arrhythmia/Palpitations Stated complaint: Heart issues Time Seen by Provider: 04/26/24 06:58 Source: patient and family Mode of arrival: ambulatory Limitations: no limitations History of Present Illness HPI narrative: 83-year-old male with a prior history of cardiomyopathy who has a ventricular pacing device in place presents to the ED for evaluation of rapid heart rate this morning. He has had several episodes like this over the past few weeks, this 1 was not as intense as the previous. He felt it had around 430 or 5:00 a.m. when he awoke it lasted several minutes, potentially up to about 10-15 it seemed like maybe he was coming in and out of it. Heart rate is fast, irregular in feels like it is pounding. I when they do check his heart rate is often around 180. Patient let his cardiology team know that this was happening last week and they had him come in for an urgent echo and were able to interrogate his pacemaker remotely. Thankfully, I am able to pull these notes up on his phone through his my chart. It does look as though his supervisor shop did notice that he was having nonsustained runs of V-tach and has recommended follow-up. Unfortunately, that follow-up is not for another 10+ days. The echo showed severe right ventricular dysfunction and severe tricuspid regurgitation. He already has an aortic valve replacement and is anticoagulated on Coumadin as a result. Patient denies chest pain but does feel unwell when these episodes happen. No severe shortness of breath, neurological changes or loss of consciousness. He has not had any recent adjustments in his medications. He is already on metoprolol but no antiarrhythmic. No recent illness or fever. No trauma or injury. Past medical history most notable for cardiomyopathy, aortic valve replacement. Medications reviewed do seem accurate as listed. Notes reviewed from Cardiology and recent echo through patient's VEASY[facility] lea. ROS is notable for the rapid heart rate, otherwise benign times 12 systems. Related Data Home Medications ?Medication ?Instructions ?Recorded ?Confirmed psyllium husk 0.4 gram capsule 0.4 g PO QDAY 07/01/22 04/26/24 (Metamucil) Previous Rx's ?Medication ?Instructions ?Recorded cyanocobalamin (vitamin B-12) 1,000 mcg PO QDAY #90 caps 07/01/22 1,000 mcg capsule metoprolol tartrate 25 mg tablet 25 mg PO QDAY #90 tabs 12/24/23 sertraline 100 mg tablet 100 mg PO QDAY #90 tabs 12/24/23 torsemide 20 mg tablet 40 mg (2 x 20 mg) PO QAM #90 tabs 12/24/23 warfarin 10 mg tablet 5 - 10 mg PO QDAY #60 tabs 04/15/24 Allergies Allergy/AdvReac Type Severity Reaction Status Date / Time No Known Allergies Allergy Verified 04/26/24 06:42 [facility] Medical History Vitamin B12 deficiency (~1988) ?E53.8 - Deficiency of other specified B group vitamins (ICD-10) Acute on chronic diastolic HF (heart failure) ?I50.33 - Acute on chronic diastolic (congestive) heart failure (ICD-10) History of colonic polyps ?Z86.010 - Personal history of colonic polyps (ICD-10) Precancerous skin lesion ?L98.9 - Disorder of the skin and subcutaneous tissue, unspecified (ICD-10) Pneumonia ?J18.9 - Pneumonia, unspecified organism (ICD-10) Incisional hernia without obstruction or gangrene ?K43.2 - Incisional hernia without obstruction or gangrene (ICD-10) Hemoptysis ?R04.2 - Hemoptysis (ICD-10) Atrial fibrillation (2005) ?I48.91 - Unspecified atrial fibrillation (ICD-10) History of endocarditis (2007) ?Z86.79 - Personal history of other diseases of the circulatory system (ICD-10) History of left heart catheterization (2014) ?Z98.890 - Other specified postprocedural states (ICD-10) History of TIA (transient ischemic attack) (2015) ?Z86.73 - Personal history of transient ischemic attack (TIA), and cerebral infarction without residual deficits (ICD-10) Pulmonary nodule ?R91.1 - Solitary pulmonary nodule (ICD-10) Echocardiogram abnormal (2016) ?R93.1 - Abnormal findings on diagnostic imaging of heart and coronary circulation (ICD-10) Health care directive on file ?Z78.9 - Other specified health status (ICD-10) Surgical History History of vasectomy ?Z98.52 - Vasectomy status (ICD-10) History of coronary artery bypass graft ?Z95.1 - Presence of aortocoronary bypass graft (ICD-10) History of inguinal hernia repair (2001) ?Z98.890 - Other specified postprocedural states (ICD-10) ?Z87.19 - Personal history of other diseases of the digestive system (ICD-10) History of permanent cardiac pacemaker placement (2005) ?Z95.0 - Presence of cardiac pacemaker (ICD-10) History of aortic valve replacement with metallic valve (2006) ?Z95.4 - Presence of other heart-valve replacement (ICD-10) History of hemorrhoidectomy (2010) ?Z98.890 - Other specified postprocedural states (ICD-10) History of cholecystectomy (2010) ?Z90.49 - Acquired absence of other specified parts of digestive tract (ICD-10) H/O tricuspid valve repair (2015) ?Z98.890 - Other specified postprocedural states (ICD-10) Hx of colonoscopy (04/12/19) ?Z98.890 - Other specified postprocedural states (ICD-10) Pacemaker (~2005) ?Z95.0 - Presence of cardiac pacemaker (ICD-10) Family History Brother Atrial fibrillation Prostate cancer Sister Breast cancer Social History Narrative: Exercises 3 to 4 times per week- walking 1 h, wood working, remodeling History of cigarette smoking- quit 2003. 40 pack years , retired from [employer], 3 adult kids Social drinker- 9/week What is your current living situation?: I presently have a place to live Problems where you live: declined to answer In the past 12 months, utilities in danger of being shut off: no In past 12 months, lack of transportation kept you from medical appts, meetings, work, or getting things needed for daily living: no In the past 12 mos, have been you worried that your food would run out before you had money to buy more?: never true In the past 12 mos, the food you bought just didn't last and you didn't have money to buy more?: never true Smoking Status: Never smoker Do you use any of these nicotine containing products: None How often do you have a drink containing alcohol: 4 or more times a week How many standard drinks containing alcohol do you have on a typical day: 1 or 2 AUDIT-C Alcohol total score: 4 Non-prescribed substance use: denies use How often does anyone, including family, friends and others, physically hurt you: never How often does anyone, including family, friends and others, insult or talk down to you: never How often does anyone, including family, friends and others, threaten you with harm: never How often does anyone, including family, friends and others, scream or curse at you: never Exam Const: Vital Signs, click to edit/add: Vital Signs - 24 hr 04/26/24 06:40 04/26/24 07:30 Temperature 97.8 F Pulse Rate 70 Pulse Rate [Pulse Oximeter] 71 Respiratory Rate 16 18 Blood Pressure [Le ft Upper Arm] 157/76 H Pulse Oximetry 95 95 Oxygen Delivery Me thod Room Air Documenting provider has reviewed patient's vital signs: yes Common normals: no apparent distress and alert General appearance: cooperative, comfortable and well kempt Other: Friendly and cooperative, excellent historian. HENMT: Common normals: normocephalic Head and scalp: normal to inspection and normocephalic Face and sinus: normal facial exam Mouth: oral and palatal mucosa normal Throat: posterior oropharynx normal Eye: Common normals: conjunctivae normal General eye: normal appearance of both eyes Conjunctiva: conjunctiva(e) normal Neck & C-Spine: Common normals: full ROM and no lymphadenopathy Chest: Common normals: inspection of chest normal and palpation of chest normal Resp: Common normals: normal respiratory effort, no use of accessory muscles and clear to auscultation bilaterally Effort & inspection: able to speak in complete sentences Auscultation: clear to auscultation bilaterally Cardio: Common normals: regular rate, regular rhythm, S1 normal heart sound and S2 normal heart sound Rate: regular rate Rhythm: regular rhythm Heart sounds: S1 normal and S2 normal Other: 3/6 systolic ejection murmur consistent with mechanical aortic valve. Second midsystolic murmur is difficult to distinguish. GI: Common normals: Normal to inspection, nondistended, normoactive bowel sounds present, soft to palpation, non-tender, no hepatosplenomegaly and no masses Palpation: soft and no hepatosplenomegaly Extremity: Common normals: normal to inspection, normal capillary refill and no pedal edema Neuro: Sensorium/orientation: alert Speech: speech normal Gait (neuro): normal gait Psych: Common normals: thought process normal Appearance: well kempt Attitude: engaged Thought process: normal thought process Thought content: normal thought content Attention/concentration: attention grossly intact Memory/cognition: memory grossly intact Insight: insight good Judgement: judgment good Skin: Common normals: no rashes or lesions noted General skin exam: no rashes or lesions noted Course Course ED Course: 83-year-old male with episodes of rapid heart rate that her very suspicious for ventricular tachycardia, nonsustained. Investigation through his september records that interrogated his pacemaker are consistent with this as well. Recent echo reviewed, excellent ejection fraction of the left side but severe right ventricular dysfunction that could be contributing. Counseled patient that I am concerned about these episodes, he may need a defibrillatory. At the moment he is clearly in paced rhythm at 70 beats per minute with no episodes of arrhythmia, no urgent treatment is needed but I do think that he needs consideration for defibrillator. Will call over to [facility] to get their input. We will obtain some basic labs to ensure that there is no dehydration, electrolyte abnormality, anemia that is contributing, will obtain INR. Patient will remain on a assembler for puller over hand to see if we can catch any of these episodes. EKG already performed. Await call back from [facility]. Pending appointment 05/05/2024 Reevaluation(s) Time of Reevaluation #1: 07:39 Reevaluation #1: Patient remains paced at 70, no signs of arrhythmia. I spoke with Dr. Michelle from [facility] team. At this time, he is going to look into this further in the clinic, they will contact the patient to see if they want to get him in to the office sooner to consider a defibrillator but this will be unlikely because of the holiday. I brought up potentially going on anti rhythmic or other medication, they do not want me to do this at this time. We are still awaiting labs. If there is nothing significantly abnormal, cardiology is recommending that I discharge the patient if he has no further episodes here in the ED. Time of Reevaluation #2: 08:17 Reevaluation #2: Patient counseled on findings, labs are very reassuring. He has not had any further episodes of what looked would like to be V-tach year he had a couple of breakthrough bigeminy beats I guess would be the best description for them but nothing sustained. He is asymptomatic. I did speak with Cardiology as stated above. They are not recommending any changes at this time they will get back to him probably today regarding and updated plan. Patient is counseled that if his episodes do go away within 2 minutes, it is okay to stay home but any thing longer than that, he needs to start making his way to the emergency department. He does have a fitness tracker and can check his heart rate for me. He does not have an arrhythmia detector but he may use this as an additional tool in his decision making. Call 911 if no one is available to drive him to the ED in these episodes. Written instructions provided, all questions answered. Vital Signs Vital signs: Initial Vital Signs Temperature 97.8 F 04/26/24 06:40 Temperature Source Temporal Artery Scan 04/26/24 06:40 Pulse Rate 71 04/26/24 06:40 Respiratory Rate 16 04/26/24 06:40 Blood Pressure 157/76 H 04/26/24 06:40 Blood Pressure Mean 103 04/26/24 06:40 Blood Pressure Position Sitting 04/26/24 06:40 Pulse Oximetry 95 04/26/24 06:40 Oxygen Delivery Method Room Air 04/26/24 06:40 Vital Signs Temperature 97.8 F 04/26/24 06:40 Pulse Rate 71 04/26/24 06:40 Respiratory Rate 16 04/26/24 06:40 Blood Pressure 157/76 H 04/26/24 06:40 Pulse Oximetry 95 04/26/24 06:40 Oxygen Delivery Method Room Air 04/26/24 06:40 Temperature 97.8 F 04/26/24 06:40 Pulse Rate 70 04/26/24 07:30 Respiratory Rate 18 04/26/24 07:30 Blood Pressure 157/76 H 04/26/24 06:40 Pulse Oximetry 95 04/26/24 07:30 Oxygen Delivery Method Room Air 04/26/24 06:40 Medical Decision Making Lab Data Lab results reviewed: Yes I reviewed the patient's lab results Lab results narrative: Patient counseled on findings, labs are all very reassuring. Labs: Lab Results 04/26/24 04/26/24 Range/Units 07:14 07:28 WBC 4.41 L (4.50-11.00) K/uL RBC 3.54 L (4.30-5.90) m/uL Hgb 11.2 L (13.5-17.5) gm/dL Hct 35.4 L (37.0-53.0) % MCV 100 (80-100) fL MCH 32 (26-34) pg MCHC 32 (32-36) gm/dL RDW Coeff of Vanessa 15.4 (11.5-15.5) % Plt Count 127 L (140-440) K/uL Neut % (Auto) 80.9 H (42.0-72.0) % Lymph % (Auto) 8.8 L (20-44) % [place] % (Auto) 8.2 (0.0-11.0) % Eos % (Auto) 1.4 (0.0-7.0) % Baso % (Auto) 0.5 (0.0-3.0) % Neut # (Auto) 3.60 (1.7-7.0) K/uL Lymph # (Auto) 0.40 L (0.90-2.90) K/uL [place] # (Auto) 0.40 (0.00-0.90) K/UL Eos # (Auto) 0.10 (0.00-0.50) K/uL Baso # (Auto) 0.00 (0.00-0.30) K/uL Abs Immat Gran (auto) 0.00 (0.00-0.30) K/uL Imm/Tot Granulo (auto) 0.2 % INR 2.35 H (0.91-1.10) Sodium 138 (135-149) mmol/L Potassium 4.2 (3.6-5.1) mmol/L Chloride 104 (96-114) mmol/L Carbon Dioxide 28 (20-32) mmol/L Anion Gap 6 L (7-15) mEq/L BUN 31 H (7-30) mg/dL Creatinine 2.1 H (0.5-1.5) mg/dL Estimated Creat Clear 27.04 Estimated GFR 30 ml/min Glucose 102 (60-115) mg/dL Calcium 8.9 (8.4-10.6) mg/dL Magnesium 2.4 (1.5-2.6) mg/dL Troponin I 0.04 (0.01-0.04) ng/mL C-Reactive Protein 0.9 (0.5-1.0) mg/dL NT-Pro-B Natriuret Pep 4860 pg/mL POC Troponin I 0.02 (0.01-0.04) ng/ml ECG Data Attestation: I personally reviewed and interpreted this ECG as follows: Prior ECG tracings: available for review Interpretation: Paced rhythm of 70. Unchanged from prior EKG. No significant acute ischemic signs, normal axis. Discharge Plan Discharge Clinical Impression: Non-sustained ventricular tachycardia Patient Disposition: Home w/ Parent or Adult Condition: Improved Additional Instructions: As we discussed, these episodes that your having in your heart do seem consistent with nonsustained ventricular tachycardia or V-tach. These can be very serious. I spoke with the cardiology team and at this time, they are not recommending that I send you urgently to [place] for a defibrillator or that I would put you on any anti arrhythmic medication. They will likely call you today with an updated plan. They do know about these episodes, as witnessed by their documentation on the . Continue your medications as prescribed. Keep your appointment for now on the . If you have any of these episodes lasting longer than a couple of minutes, please come back to the emergency department. It is okay for you to use your heart rate monitor to help you make decisions. Please call 911 if no and is able to drive you to the emergency department, I would not want you driving your self if you are having an episode. Activity Level: No Restrictions Discharge Diet: Regular Prescriptions: No Action psyllium husk [Metamucil] 0.4 gram capsule 0.4 g PO QDAY cyanocobalamin (vitamin B-12) 1,000 mcg capsule 1,000 mcg PO QDAY Qty: 90 4RF sertraline 100 mg tablet 100 mg PO QDAY Qty: 90 3RF metoprolol tartrate 25 mg tablet 25 mg PO QDAY Qty: 90 3RF torsemide 20 mg tablet 40 mg PO QAM Qty: 90 3RF warfarin 10 mg tablet 5 - 10 mg PO QDAY Qty: 60 0RF Protocol: Dose Management Condition: Thursday Dose/Route: 5 mg Instruction: 0.5 x 10 mg tablets Condition: Thursday Dose/Route: 10 mg Instruction: 1 x 10 mg tablet Condition: Thursday Dose/Route: 5 mg Instruction: 0.5 x 10 mg tablets Condition: Thursday Dose/Route: 10 mg Instruction: 1 x 10 mg tablet Condition: Dose/Route: 5 mg Instruction: 0.5 x 10 mg tablets Condition: Thursday Dose/Route: 10 mg Instruction: 1 x 10 mg tablet Condition: Thursday Dose/Route: 5 mg Instruction: 0.5 x 10 mg tablets Protocol Text: Adjustment Start Date: Thursday04/15/24 INR Value: 2.7 INR Date: 04/15/24 Recheck Date: 05/15/24 Rx Instructions: Take 10mg Thursday/Thursday/Thursday and 5mg all other days Follow Up/Referrals: Myrna Sol MD [Primary Care Provider] - Stand Alone Forms: MyHealth Info Instructions
[2024-04-26 07:30] VITALS: PULSE 70; RESP 18; O2SAT 95
[2024-04-26 07:39] LABS: Basophils Percent Auto 0.5 % (0.0-3.0); Eosinophils Percent Auto 1.4 % (0.0-7.0); Hematocrit 35.4 % (37.0-53.0); Hemoglobin* 11.2 gm/dL (13.5-17.5); Immature Granulocytes Pct Auto 0.2 %; Lymphocytes Percent Auto 8.8 % (20-44); Mean Corpuscular HGB Conc 32 gm/dL (32-36); Mean Corpuscular Hemoglobin 32 pg (26-34); Mean Corpuscular Volume 100 fL (80-100); Monocytes Percent Auto 8.2 % (0.0-11.0); Neutrophils Percent Auto 80.9 % (42.0-72.0); Platelet Count* 127 K/uL (140-440); RDW Coefficient of Variation % 15.4 % (11.5-15.5); Red Blood Count 3.54 m/uL (4.30-5.90); White Blood Count* 4.41 K/uL (4.50-11.00)
[2024-04-26 07:44] LABS: Troponin, Point-of-Care* 0.02 ng/ml (0.01-0.04)
[2024-04-26 07:50] LABS: Chloride* 104 mmol/L (96-114); Potassium* 4.2 mmol/L (3.6-5.1); Sodium* 138 mmol/L (135-149)
[2024-04-26 07:53] LABS: Creatinine* 2.1 mg/dL (0.5-1.5); Est. Creatinine Clearance* 27.04; Estimated Glomerular Filt Rate 30 ml/min; INR 2.35 (0.91-1.10); Prothrombin Time 27.5 Seconds
[2024-04-26 07:54] LABS: Anion Gap 6 mEq/L (7-15); Blood Urea Nitrogen* 31 mg/dL (7-30); Calcium* 8.9 mg/dL (8.4-10.6); Carbon Dioxide* 28 mmol/L (20-32); Glucose* 102 mg/dL (60-115); Magnesium* 2.4 mg/dL (1.5-2.6)
[2024-04-26 07:57] LABS: C Reactive Protein* 0.9 mg/dL (0.5-1.0)
[2024-04-26 08:05] LABS: Troponin I* 0.04 ng/mL (0.01-0.04)
[2024-04-26 08:06] LABS: NT Pro B Type NatriureticPept* 4860 pg/mL
[2024-04-26 08:08] LABS: Slide Review Reflex No
== END 2024-04-26 08:35 | disposition home or self-care (01) ==
PROVIDERS: Emergency Provider Family Medicine; PCP Family Medicine
DX: I47.20 Ventricular tachycardia, unspecified (principal)
CPT/HCPCS: 36415; 80048; 83735; 83880; 84484; 85025; 85610; 86140; 93005; 99284

== ENCOUNTER 2024-05-30 08:23 | Outpatient (CLI) | payer MEDICARE, OTHER, SELFPAY | END 2024-05-30 08:24 | disposition home or self-care (01) | PROVIDERS: PCP Family Medicine; Visit Provider Family Medicine | DX: I12.9 Hypertensive chronic kidney disease with stage 1 through stage 4 chronic kidney disease, or unspecified chronic kidney disease (principal); N18.30 Chronic kidney disease, stage 3 unspecified; Z13.21 Encounter for screening for nutritional disorder | CPT/HCPCS: 80053; 83735 ==

== ENCOUNTER 2024-06-16 13:45 | Outpatient (RCR) | payer MEDICARE, OTHER, SELFPAY ==
--- NOTE | 2024-05-23 15:23 | OT.OPOE ---
OT Outpatient Ortho Eval OT Outpatient Ortho Eval* Start: 05/23/24 13:58 Freq: Status: Active Protocol: Document 05/23/24 13:59 CSS (Rec: 05/23/24 14:59 CSS [id number]) E-signed By Sarah Galarza, OTR/L OT OP Ortho Eval Details Complexity Complexity Low Insurance Information Insurance Information Medicare B Outpatient History/Precautions Current Condition/Medical Diagnosis Referring Provider Dr. Sol Medical Diagnoses m79.641 pain in R hand m79.642 pain in L hand Treatment Diagnosis R pain in hand- m79.641 L pain in hand- m79.642 Date of Onset 2 years ago Medical Conditions Heart Condition,Pacemaker, Arthritis Medical/Functional History Medical History Reviewed Yes: 15 years ago frax in L 4th digit Prior Level of Function/Mobility indep with all ADLs/IADLs Ortho Subjective Subjective Subjective Pt notes sporadic hyperextension and flexion in B hands, specifically in 2nd and 4th digits. Pt notes this has been going on for a few years. He notes he notices it can happen when going on a long drive or when sleeping, but not always. Notes by rubbing his MCP joint it helps decrease pain. Notes that hand will lock or cramp up for approx 1-2 minutes. Pain Assessment Pain Pain No Pain Comments states no pain today; did not have episode of cramping Range of Motion and Strength Hand/Finger/Thumb Range of Motion and Strength Hand/Finger/Thumb Range of Motion and deficits in right 4th digit Strength and L 5th digits- these are not new. Difficulty with complete flexion in PIP and DIP joints. Hand Pinch/Supervisor Microfilm Duplicating Unit Strength Hand Pinch/Supervisor Microfilm Duplicating Unit Strength Hand Pinch/Supervisor Microfilm Duplicating Unit Strength Left Hand,Right Hand Left Hand Supervisor Microfilm Duplicating Unit Strength Position 1 in Elbow 62 Flexion (lbs) Lateral Pinch Strength (lbs) 19 Right Hand Supervisor Microfilm Duplicating Unit Strength Position 1 in Elbow 48 Flexion (lbs) Lateral Pinch Strength (lbs) 18 OT Objective Data Sensation Sensation Assessment Summary Comments denies N/T OT Problems Problems Problems Pain Problems Comments driving Other Problems Sleeping Patient Potential Good Assessment Assessment Assessment Pt is an 83 year old male who is referred due OT due to bilateral hand pain. Pt does not have official diagnosis but noted to have arthritis in B hands. Pt describes bilateral pain occurring for approx 2 years and happening sporadically. He describes pain as cramping or tabitha horse. Pt would benefit from ongoing skilled OT to help eliminate pain and provide compensatory strategies to prevent decline in ADLs/IADLs, specifically driving. Occupational Therapy Treatment Plan - OP Potential Rehabilitation Potential Good Set Goals Goals Set with Patient Yes Goals Goals Goals to be met by 07/18/24: 1) Pt will note decrease of hand cramping limited to 3x a week or less. 2) Pt will be able to verbalize HEP in order to minimize pain. Treatment Plan Treatment Plan Evaluation,Edema Control, Iontophoresis,Manual Therapy, Splinting,Ultrasound, Therapeutic Exercise, Therapeutic Activities,Self Care/Home Management,Education Expected Frequency 1-2x Week Expected Duration 6-8 Weeks Home Program Home Program Home Program Initiated Home Program Specifics tendon glides, heat for pain relief, compression gloves at night, stretches while driving Certification Certification Statement I Certify That: Therapy Services Provided, Therapy Plan Established, Therapy Plan Reviewed Certification Information Clinic ID # [id number] Initial Certification Date 05/23/24 Recertification Due Date 07/18/24 Provider Signature Required Yes Provider Signature Shows Agreement With POC & Medical Necessity Physician NPI Number Write NPI# Here Physician Comment/Change Comment or Changes Physician Signature & Date Requested Please Sign/Date Here
--- NOTE | 2024-06-09 17:58 | PT.OPEX ---
PT [place] Outpatient Eval PT [facility] Outpatient Eval Start: 06/09/24 13:53 Freq: Status: Active Protocol: Document 06/09/24 13:54 [facility] (Rec: 06/09/24 14:49 [facility] [id number]) E-signed By Cheng Pavon, PT Physical Therapy Outpatient Evaluation Insurance Information Recert Due Date 09/01/24 Insurance Name Medicare B Medical Diagnosis Neck pain M54.2 Treating Diagnosis Neck pain M54.2 Abnormal posture R29.3 Imaging Report Information Neck x-ray:Multilevel degenerative disc disease with straightening of the normal lordosis. Referring MD Dr. Myrna Sol Subjective Preferred Name Sam Subjective Sam presents with c/o neck pain that started a couple years ago with hunting, carrying his gun in his hands. At first, pain was infrequent , but now it is getting worse and impacting his daily life. Pain is intense, at the back of his neck and worsens if he does not stop the activity. Sam also has been experiencing spontaneous spasms of fingers on both hands (thumb through 4th finger). This happens ~4-5x/ week. He notices it most when driving. Aggravating: vacuuming, leaning over to make his bed, lifting weighted objects, bending over Relieving: rest from aggravating activities He sleeps ok. No increase in pain with cough/sneeze/strain, Denies UE paraesthesias/ radiating pain, facial symptoms/dizziness. PMH: depression, heart condition/pacemaker, mini stroke (7 years ago) Pain Comments -02/10 Date of Last Physician Visit 05/11/24 Current Work Status Retired Precautions Therapy Limitations/Systems Review Hearing,Other Medical Problem Objective Other/Pertinent Objective Posture: flattened cervical spine, mild forward head from C7/T1 jxn AROM: Cervical spine: Flexion: 40 deg Extension: 45 deg - mild pain at base of neck Sidebend: L 25 deg , mild neck pain R 40 deg Rotation: L 75 deg R 80 deg UEs: AROM: WNL Strength: Cervical: seated MMT, grossly WNL, pain free UEs: >4+/5 throughout. No focal weakness Spurling: negative, perry Palpation: + concordant sign with perry cervical segmental testing, upglides G1/2 perry. downglides on left + TTP upper thoracic paraspinals, minimal tenderness u traps, non tender cervical paraspinals +thoracic hypomobility, pain free Manual cervical traction increased symptoms Functional Test Performed & Score Sustained supine neck flexion: 40 sec, increasing neck pain Assessment Assessment/Impression 83 year old male presents with posterior neck pain, chronic intermittent x 2 years, but gradually worsening. A recent x-ray revealed C3-7 DDD w/ vertebral spurring. Sam demonstrated low irritability of symptoms today, however, cervical segmental testing was the primary test that reproduced his symptoms. He does also demonstrate impaired cervical extension and sidebend ROM and impaired strength of cervical stabilizer muscles. I recommend skilled PT for progression in a HEP to facilitate cervical spine health and stabilization to reduce neck pain with his daily activities. Primary Functional Limitations bending forward (ie. to make bed), carrying objects in hands, vacuuming, looking up overhead Plan of Care Rehabilitation Potential Good Rehabilitation Potential Comments advanced DDD cervical spine Physical Therapy Goals In 6-8 weeks, patient will: 1) Improve cervical sidebend and extension ROM by 5-10 degrees to facilitate pain free head movement 2) Make bed in the morning with neck pain max 2/10 3) Carry up to 10# object up stairs, neck pain max 2/10 4) Be I with HEP and self- management of residual symptoms Coordination/Communication With Referral Source Treatment Plan/Direct Interventions Manual Therapy,Neuromuscular Re-ed,Self-Care/Home Management,Therapeutic Activities,Therapeutic Exercises Frequency/Duration ~1x/week for 6-8 weeks Patient Will Be Discharged From Therapy Completion of LTG(s), Independent w/HEP, Independently Progressing Evaluation Billing Untimed Code Treatment Minutes 30 Complexity Moderate Certification Information Initial Certification Date 06/09/24 Ending Certification Date 09/01/24 Provider Signature Required Yes Provider Signature Shows Agreement With POC & Medical Necessity Physician NPI Number Write NPI# Here Physician Comment/Change : Physician Signature & Date Requested Please Sign/Date Here
== END 2024-09-30 11:25 | disposition home or self-care (01) ==
PROVIDERS: PCP Family Medicine; Visit Provider Family Medicine
DX: M79.641 Pain in right hand (principal); M79.642 Pain in left hand; M54.2 Cervicalgia; Z51.89 Encounter for other specified aftercare
CPT/HCPCS: 97110; 97140; 97162; 97165; X5282

== ENCOUNTER 2024-09-05 20:19 | Emergency (ER) | payer MEDICARE, OTHER, SELFPAY ==
[2024-09-05] VITALS (10 sets, daily range): BP systolic 111–116; BP diastolic 55–65; PULSE 70–72; RESP 14–23; TEMP 36.7; O2SAT 90–96; BMI 24.7
--- OUTSIDE RECORDS SUMMARY | 2024-09-05 20:22 | XMS_ITS | Clinical Summary ---
Author Organization [facility] Address [address] [place] [address] Care Team Providers Care Automobile Tire Builder Name Role Phone Elsewhere, Pcp Primary Care Provider Unavailabl e Source Comments Patient records contain information from all sites at [facility]. For routine questions regarding patient records, call [phone] during business hours, M-F 8:00 AM - 5:00 PM Central Time. Record requests for emergency care only can be directed to [phone] at any time.[facility] Allergies No known active allergies Medications * This document contains information received from the source organization and may not represent a complete record from that organization. sertraline (ZOLOFT) 100 mg tablet Take 1 tablet by mouth daily. 5 Active amoxicillin (AMOXIL) 500 mg capsule Take 2,000 mg by mouth as needed (prior to dental procedures). Active warfarin (COUMADIN) 10 mg tablet Take 0.5-1 tablets (5-10 mg total) by mouth daily. 11/29/20: 10 mg; 11/30/20: 5 mg, then resume home 5 mg on Mondays and with 10 mg all other days of the week 1 Active psyllium (METAMUCIL) 0.52 gram capsule Take 1-2 capsules by mouth daily. Active metoprolol succinate (Toprol XL) 50 mg 24 hr tabletIndication s:Palpitations,S upraventricular Tachycardia, Unspecified (HCC) Take 1 tablet (50 mg total) by mouth daily. Do not crush or chew. 90 tablet 3 5 05/11/19 26 Active Active Problems Problem Noted Date Diagnosed [...] Ischemic Attack 07/10/2015 Overview (09/20/2021): Evaluated in [place] 06/2015 Shortness Of Breath 03/15/2013 Replacement Heart Valve Tissue 09/24/2012 Overview (09/20/2021): [facility] 11/2014 Dr. Petar Clark Followed by Dr Alvarado in [place] february Other Specified Extrapyramidal And Movement Diso rders 10/04/2009 Other Abnormal Glucose 10/12/2008 Resolved Problems Problem Noted Date Diagnosed Date Resolved Date Gastroesophageal Reflux Disease NOS 04/03/2021 09/20/2021 Encounters Date Type Department Care Team Description 08/04/2024 11:08 AM CDT - 08/04/2024 11:59 PM CDT Hospital Encounter Department of Cardiovascular Diseases in [place], [place] [address] [place] [address] Shad Whittaker M.D. Discharge Disposition: Home or Self Care 07/08/2024 7:50 AM VARNISHING UNIT OPERATOR - 07/08/2024 11:59 PM VARNISHING UNIT OPERATOR Hospital Encounter Department of Cardiovascular Diseases in [place], [place] [address] [place] [address] Melba Luna M.B.B.S. Discharge Disposition: Home or Self Care from Last 3 Months Immunizations Immunization Administration Dates Next Due Influenza Split 02/01/2007 PPSV23 02/01/2007 Family History Medical History Relation Name Comments Melanoma Brother 1 Quan gross Sleep apnea Brother 1 Quan gross Colon polyps Brother 2 Sheng gross Melanoma Sister Emmy de la rosa Relation Name Status Comments Brother 1 Quan gross Brother 2 Sheng gross Sister Emmy de la rosa Social History Tobacco Use Types Packs/Day Years Used Date Smoking Tobacco: Former Cigarettes 1 50 0 [birth year]/04/1954 - 05/04/2004 Smokeless Tobacco: Never Tobacco Cessation:Counseling Given: Not Answered Alcohol Use Standard Drinks/Week Comments Yes 5 (1 standard drink = 0.6 oz pur e alcohol) [facility] Utilities Answer Date Recorded In the past 12 months has [facility] [employer], gas, oil, or water [employer] threatened to shut off services in your home? No 04/14/2024 Humiliation, Afraid, Rape, and Kick questionnair e [...] How often do you attend chur or gnosticism services? More than 4 times per year 05/08/2022 Do you belong to any clubs o r organizations such as buddhist groups, unions, fraternal or athletic groups, or [...] care, and heating? Not very hard 05/08/2022 [facility] [place] of Occupat ional Health - Occupational Stress [...] exercise (like a brisk walk)? 2 days 04/14/2024 On average, how many minutes do you engage in exercise at this level? 20 min 04/14/2024 Hunger Vital Sign Answer Date Recorded Within the past 12 months, y ou worried that your food would run out before you got the money to buy more. Never true 04/14/20 24 Within the past 12 months, t he food you bought just didn't last and you didn't have money to get more. Never true 04/14/2024 PRAPARE - Transportation Answer Date Re corded In the past 12 months, has l ack of transportation kept you from medical appointments or from getting medications? No 04/03 In the past 12 months, has l ack of transportation kept you from meetings, work, or from getting things needed for daily living? No 04/14/2024 Nutrition Answer Date Recorded On average, how many serving s of fruits and vegetables do you eat per day (serving size is equal to 1 cup or approximately the size of a tennis ball)? 0-2 04/14/2024 Dental Answer Date Recorded Dental: Regular Dentist Yes 11/15/19 Employment Answer Date Recorded Employment status Retired 04/14/2024 Housing Stability Answer Date Recorded What is your living situation today? I have a [facility] to live 04/14/2024 Education Answer Date Recorded What is the highest level of school you have completed or the highest degree you have received? Bachelor's degree (e.g., BA, AB, BS) 01/13/2019 Sex and Gender Information Value Date Recorded Sex Assigned at Male 08/22/2018 2:26 PM CDT Legal Sex Male 11:09 AM VARNISHING UNIT OPERATOR Gender Identity Male 08/22/2018 2:26 PM CDT Sexual Orientation Straight 08/22/2018 2: 26 PM CDT Last Filed Vital Signs Vital Sign Reading Time Taken Comments Blood Pressure 110/60 05/11/2024 3:29 PM VARNISHING UNIT OPERATOR Pulse 80 05/19/2024 11:06 AM VARNISHING UNIT OPERATOR Temperature 36.3 C (97.3 F) 04/19/2024 1:59 PM VARNISHING UNIT OPERATOR Respiratory Rate 28 04/24/2022 9:10 AM VARNISHING UNIT OPERATOR Oxygen Saturation 96% 05/19/2024 11:06 AM VARNISHING UNIT OPERATOR Inhaled Oxygen Concentration - - Weight 80.4 kg (177 lb 4 oz) 05/11/2024 3:29 PM VARNISHING UNIT OPERATOR Height 177.4 cm (5' 9.84) 05/11/2024 3:29 PM CS T Body Mass Index 25.55 05/11/2024 3:29 PM VARNISHING UNIT OPERATOR Plan of Treatment Health Maintenance Due Date Last Done Comments Zoster Vaccines (2 of 3) 06/04/2006 04/09/2006 RSV vaccine - (32-36 weeks) or 60+ years (1 - 1-dose 75+ series) 11/10/2014 Fasting Glucose for Diabetes Screening 12/03/2023 12/02/2022, 02/06/2022, 10/18/2021, Additional history exists Depression Screening (Annual PHQ-2) 05/04/2024 DTaP,Tdap,and Td Vaccines (3 - Td or Tdap) 11/01/2024 11/01/2014, 11/01/2012, 11/24/2003, Additional history exists COVID-19 Vaccine ( season) 2024 05/10/2024, 04/23/2023, 02/11/2022, Additional history exists Pneumococcal vaccine (50+ years) Completed 08/07/2014, 02/01/2007, 02/17/2006 Influenza Vaccine Completed 05/10/2024, , 02/11/2022, Additional history exists Fall Risk Screen (Annual) Completed 05/11/2024 IPV Vaccines Aged Out No longer eligi ble based on patient's age to complete this topic Medical Devices Implanted Type Area Greenhouse Assistant Device Identifier Shelf Expiration Date Model / Serial / Lot Lead Guidant Baron [id number] Implanted:11/02 (Quantity not on file) Cardiac Lead Other/Legacy - See Implant Description Guidant / [id number] / Description:LEAD Guidant Cor p [id number] Flextend Lead Guidant Baron [id number] Implanted:11/02 (Quantity not on file) Cardiac Lead Other/Legacy - See Implant Description Guidant / [id number] / Description:LEAD Guidant Cor p [id number] Flextend Valve Aortic Carbomedics 25mm - Chappell [id number] Implanted:Qty: 1 on 09/10/2007 Cardiac Valve Prosthesis Aorta Carbomedics Description:Device Manufactu rer - Carbomedics. Body Location - Other. Aortic. Device Status Text - [id number]. Ring Annuloflex Carbomedics 28mm - Chappell [id number] Implanted:Qty: 1 on 11/01/2014 Cardiac Valve Prosthesis Other/Legacy - See Implant Description Carbomedics Description:Device Manufactu rer - Carbomedics. Body Location - Other. Tricuspid. Device Status Text - [id number]. [place] Eddie Fuzzy 6 X 1 - Chappell [id number] Implanted:Qty: 1 on 09/10/2007 Mesh or Patch Impra Description:Device Manufactu rer - Impra. Device Status Text - [id number]. [place] Eddie Fuzzy 1 X 1 - Chappell 1667 Implanted:Qty: 2 on 09/10/2007 Mesh or Patch JIT Solaire Description:Device Manufactu rer - [id number]. Device Status Text - [id number]. [facility] Data - [id number]. Ocular Lens Ocular Lens Bilateral: Eye Pacemaker [employer] [id number] Implanted:05/2015 (Quantity not on file) Pacemaker Other/Legacy - See Implant Description [employer] / [id number] / Description:Pacemaker [employer] [id number] ACCOLADE EL Hemashield Woven-Str 28 X 30 - Chappell [id number] Implanted:Qty: 1 on 09/10/2007 Vascular Graft Aorta Other/Legacy - See Implant Description Description:Device Manufactu rer - Meadox. Body Location - Other. Aortic. Device Status Text - [id number]. Explanted Type Area Greenhouse Assistant Device Identifier Shelf Expiration Date Model / Serial / Lot Pacemaker Guidant Baron [id number] Implanted:11/29 (Quantity not on file) Explanted:01/02 (Quantity not on file) Pacemaker Chest Guidant / [id number] / Description:Pacemaker Guidan t Baron [id number] Procedures Procedure Name Priority Date/Time Associated Diagnosis Comments INTERFACED REMOTE DEVICE CHECK Routine 08/04/2024 11:08 AM CDT INTERFACED REMOTE DEVICE CHECK Routine 07/08/2024 7:50 AM VARNISHING UNIT OPERATOR GLUCOSE, FASTING, S/P Routine 12/02/2022 7:36 AM CDT Atrial Fibrillation Permanent (HCC) Congestive Heart Failure (HCC) from Last 3 Months or Most Recently Relevant to Health Maintenance Results * CAR CARDIAC DEVICE INTERROGATION (08/04/2024 11:08 AM CDT) Only the most recent of2 resultswithin the time period is included. Date Time Interrogation Session [id number] [facility] Type Interrogation Session Remote Scheduled [facility] Implantable Pulse Generator Greenhouse Assistant [place] [employer] [facility] Implantable Pulse Generator Type Pacemaker [facility] Implantable Pulse Generator Model L321 [facility] Implantable Pulse Generator Serial Number [id number] [facility] Implantable Pulse Generator Implant Date 20160103 [facility] Battery Remaining Percentage 81.00 % [facility] Battery Remaining Longevity 84.0 mo [facility] Battery Status Beginning of Service [facility] Abelino Statistic RA Percent Paced 0.00 [facility] Abelino Statistic RV Percent Paced 99.00 [facility] Lead Channel Setting Sensing Sensitivity 0.15 [facility] Lead Channel Measurements Date and Time 20240803 [facility] Lead Channel Sensing Intrinsic Amplitude 4.500 [facility] Lead Channel Setting Sensing Sensitivity 4.00 [facility] Lead Channel Impedance Value 1,240 [facility] Lead Channel Pacing Threshold Amplitude 2.000 [facility] Lead Channel Pacing Threshold Pulse Width 0.4 [facility] Lead Channel Measurements Date and Time 20240803 [facility] Lead Channel Setting Pacing Amplitude 2.400 [facility] Lead Channel Setting Pacing Pulse Width 0.4 [facility] Abelino Setting Mode (NBG Code) VVIR [facility] Abelino Setting Lower Rate Limit 70 [facility] Abelino Setting AT Mode Switch Rate 170 [facility] Abelino Setting Maximum Sensor Rate 110 [facility] Lead Channel Setting Sensing Polarity Bipolar [facility] Lead Channel Setting Pacing Polarity Bipolar [facility] Lead Channel Pacing Threshold Polarity Bipolar [facility] Zone Setting Type Category VT [facility] Murj Rate 1 160 [facility] Zone Setting Status Monitor [facility] Murj Zone ID 1 [facility] Implantable Lead Greenhouse Assistant Guidant [facility] Implantable Lead Model 4086 Flextend [facility] Implantable Lead Location Right Atrium [facility] Implantable Lead Connection Status Connected [facility] Implantable Lead Serial Number [id number] [facility] Implantable Lead Implant Date 20041129 [facility] Implantable Lead Special Function Lead length: 45.00 cm [facility] Implantable Lead Greenhouse Assistant Guidant [facility] Implantable Lead Model 4087 Flextend [facility] Implantable Lead Location Right Ventricle [facility] Implantable Lead Connection Status Connected [facility] Implantable Lead Serial Number [id number] [facility] Implantable Lead Implant Date 20041129 [facility] Implantable Lead Special Function Lead length: 52.00 cm [facility] Anatomical Region Laterality Modality Other 08/08/2024 2:00 PM CDT Impressions 08/08/2024 2:00 PM CDT Encounter Impression: Title: Normal Remote: With Events * Normal Device Function * Events or Alerts: 1 * Battery: Battery is at 81%, 7.00 yrs * Sensing, impedance and thresholds reviewed and stable * Programmed parameters reviewed * Presenting rhythm: Ventricular pacing around 70 bpm * Heart Rate Histograms reviewed Title: Non-sustained Ventricular Tachycardia * Stored EGMs are consistent with or suggestive of Non-sustained VT * Total episodes: 1 Additional Notes: 07/28/24 at 2144: EGM shows 13 beats of NSVT at 185 bpm Plan: This patient underwent device interrogation. I agree that the device interrogation was medically indicated to provide appropriate care and continue routine device interrogations as indicated. Encounter Summary: This report includes 1 transmission that was received on 2024-08-04. Battery, lead impedance, sensing amplitude and pacing threshold data was reviewed. Narrative Procedure Note Shad Whittaker M.D. - 08/08/2024 IMPRESSION: Encounter Impression: Title: Normal Remote: With Events * Normal Device Function * Events or Alerts: 1 * Battery: Battery is at 81%, 7.00 yrs * Sensing, impedance and thresholds reviewed and stable * Programmed parameters reviewed * Presenting rhythm: Ventricular pacing around 70 bpm * Heart Rate Histograms reviewed Title: Non-sustained Ventricular Tachycardia * Stored EGMs are consistent with or suggestive of Non-sustained VT * Total episodes: 1 Additional Notes: 07/28/24 at 2144: EGM shows 13 beats of NSVT at 185 bpm Plan: This patient underwent device interrogation. I agree that the deviceinterrogation was medically indicated to provide appropriate care andcontinue routine device interrogations as indicated. Encounter Summary: This report includes 1 transmission that was receivedon 2024-08-04. Battery, lead impedance, sensing amplitude and pacingthreshold data was reviewed. us Shad Whittaker M.D. CV IMPLANTABLE CARDIAC DEVICE Final Result * Glucose, Fasting (12/02/2022 7:36 AM CDT) Glucose, P 97 70 - 100 mg/dL 12/02/2022 8:33 AM CDT DTL Last Intake 13 hr 12/02/2022 8:14 AM CDT DTL Blood (Blood, Venous) 12/02/2022 7:36 AM CDT 12/02/2022 8:14 AM CDT Abdulkadir Meadows M.D. LAB BLOOD NON ADD-ON Final R esult [facility] [address] [place] [address], [facility] [address] [place] [address] from Last 3 Months or Most Recently Relevant to Health Maintenance Insurance MEDICARE MEDIC Advance Directives For more information, please contact: [phone] Documents on File Type Date Recorded Patient Desktop Architect Expl anation Advance Directives 11/01/2014 12:00 AM Lega cy document. See document viewer. * Full Code (Latest Code Status on File) Date Activated Date Inactivated Comments 11/25/2020 4:47 AM 11/29/2020 6:51 PM Question Answer Comments Full Code: Discussed Care Teams Automobile Tire Builder Relationship Specialty Start Date End Date Elsewhere, Pcp PCP - General Family Medicine 11/27/20 Mary Ann Slo [address] [place] [id number] Life Care Planner Physician 01/17/19
--- OUTSIDE RECORDS SUMMARY | 2024-09-05 20:22 | XMS_ITS | Data Portability ---
Author Organization [facility] Address [address] [place] [address] Assessment No assessment recorded. Plan of Treatment Reminders Order Date Submit Date Provider Last Modified By Organization Details Last Modified Time Details Appointments None record ed. Lab None record ed. Referral None record ed. Procedures None record ed. Surgeries None record ed. Imaging None record ed. Medication Orders None record ed. Patient TargetsNo targets recorded. Patient InstructionsNo instructions recorded. Reason for Referral None Reported. Problems Name Problem SNOMED Code Status Onset Date Resolution Date Notes Provider Name and Address Organization Details Recorded Time Transient cerebral ischemia 678163132 Active Not Available [facility] 6 07:12:27 Problem Notes None recorded. Medical Equipment None Reported. Vitals None Recorded Social History None recorded. Functional Status None recorded. Mental Status None recorded. Family History Nothing Reported. Medical History No medical history recorded. Past Encounters Encounter ID Performer Location Encounter Start Date Encounter Closed Date Diagnosis/Indication Diagnosis SNOMED-CT Code Diagnosis ICD10 Code Diagnosis Note [id number] Oneil Wahl MD MG_CARD DST_[facility] _IP [address] [facility] [address] [place] [address] 06/28/2015 00:00:00 06/29/2015 00:00:00 Transient cerebral ischemia 620730648 Health Concerns Section Related Observation LastModified by Organization Detai ls LastModified Time None Recorded Concern Status LastModified by Organization Details LastModified Time None Recorded Advance Directives Directive None Recorded Payers None recorded.
--- OUTSIDE RECORDS SUMMARY | 2024-09-05 20:22 | XMS_ITS | Encounter Summary ---
Author Organization [facility] Address [address] [place] [address] Care Team Providers Care Money Market Dealer Name Role Phone Elsewhere, Pcp Primary Care Provider Unavailabl e Encounter Details Date Type Department Care Team (Latest Contact Info) Description 08/04/2024 11:08 AM CDT - 08/04/2024 11:59 PM CDT Hospital Encounter Department of Cardiovascular Diseases in [place], [place] [address] [place] [address] Shad Whittaker M.D. [address] [place] [address] Discharge Disposition: Home or Self Care Social History Tobacco Use Types Packs/Day Years Used Date Smoking Tobacco: Former Cigarettes 1 50 0 05/04/1954 - 05/04/2004 Smokeless Tobacco: Never Alcohol Use Standard Drinks/Week Comments Yes 5 (1 standard drink = 0.6 oz pur e alcohol) [facility] Utilities Answer Date Recorded In the past 12 months has e [employer]), gas, oil, or water [employer] threatened to shut off services in your [...] any clubs o r organizations such as methodist groups, unions, fraternal or athletic groups, or [...] care, and heating? Not very hard 05/08/2022 [facility] - [...] your living situation today? [facility] 04/14/2024 Education Answer Date Recorded What is the highest level of school you have completed or the highest degree you have received? 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 metoprolol succinate (Toprol XL) 50 mg 24 hr tabletIndications :Palpitations,Sup raventricular Tachycardia, Unspecified (HCC) Take 1 tablet (50 mg total) by mouth daily. Do not crush or chew. 90 tablet 3 05/11/2024 psyllium (METAMUCIL) 0.52 gram capsule Take 1-2 capsules by mouth daily. sertraline (ZOLOFT) 100 mg tablet Take 1 tablet by mouth daily. 09/13/2014 warfarin (COUMADIN) 10 mg tablet Take 0.5-1 [...] DEVICE CHECK Routine 08/04/2024 11:08 AM CDT documented in this encounter Results * CAR CARDIAC DEVICE INTERROGATION (08/04/2024 11:08 AM CDT) Date Time Interrogation Session [id number] [facility] Type Interrogation Session Remote Scheduled [facility] Implantable Pulse Generator Color Weigher Digital Message Display [facility] Implantable Pulse Generator Type Pacemaker [facility] Implantable Pulse Generator Model L321 [facility] Implantable Pulse Generator Serial Number [id number] [facility] Implantable Pulse Generator Implant Date [id number] [facility] Battery Remaining Percentage 81.00 % [facility] Battery Remaining Longevity 84.0 mo [facility] Battery Status Beginning of Service [facility] Abelino Statistic RA Percent Paced 0.00 [facility] Abelino Statistic RV Percent Paced 99.00 [facility] Lead Channel Setting Sensing Sensitivity 0.15 [facility] Lead Channel Measurements Date and Time 20240803 [facility] Lead Channel Sensing Intrinsic Amplitude 4.500 [facility] Lead Channel Setting Sensing Sensitivity 4.00 [facility] Lead Channel Impedance Value 1,240 [facility] Lead Channel Pacing Threshold Amplitude 2.000 [facility] Lead Channel Pacing Threshold Pulse Width 0.4 [facility] Lead Channel Measurements Date and Time 20240803 [facility] Lead Channel Setting Pacing Amplitude 2.400 [facility] Lead Channel Setting Pacing Pulse Width 0.4 [facility] Abelino Setting Mode (NBG Code) VVIR [facility] Abelino Setting Lower Rate Limit 70 [facility] Abelino Setting AT Mode Switch Rate 170 [facility] Abelino Setting Maximum Sensor Rate 110 [facility] Lead Channel Setting Sensing Polarity Bipolar [facility] Lead Channel Setting Pacing Polarity Bipolar [facility] Lead Channel Pacing Threshold Polarity Bipolar [facility] Zone Setting Type Category VT [facility] Murj Rate 1 160 [facility] Zone Setting Status Monitor [facility] Murj Zone ID 1 [facility] Implantable Lead Color Weigher Guidant [facility] Implantable Lead Model 4086 Flextend [facility] Implantable Lead Location Right Atrium [facility] Implantable Lead Connection Status Connected [facility] Implantable Lead Serial Number [id number] [facility] Implantable Lead Implant Date [id number] [facility] Implantable Lead Special Function Lead length: 45.00 cm [facility] Implantable Lead Color Weigher Guidant [facility] Implantable Lead Model 4087 Flextend [facility] Implantable Lead Location Right Ventricle [facility] Implantable Lead Connection Status Connected [facility] Implantable Lead Serial Number [id number] [facility] Implantable Lead Implant Date [...] sensing amplitude and pacingthreshold data was reviewed. Shad Whittaker M.D. CV IMPLANTABLE CARDIAC DEVICE Final Result documented in this encounter Visit Diagnoses Not on filedocumented in this encounter Care Teams Money Market Dealer Relationship Specialty Start Date End Date Elsewhere, Pcp PCP - General Family Medicine 11/27/20 Mary Ann Sol [address] [place] [id number] Ghost Writer Physician 01/17/19 documented as of this encounter
--- NOTE | 2024-09-05 20:23 | CRLHL7_ITS ---
For Patients: As a result of the Century Cures Act, medical imaging exams and procedure reports are released immediately into your electronic medical record. You may view this report before your referring provider. If you have questions, please contact your health care provider. INDICATION: Fall on Coumadin. TECHNIQUE: CT head without contrast. COMPARISON: 02/04/2024. FINDINGS: CSF spaces: Within normal limits for age. Brain parenchyma and extra-axial spaces: Moderate generalized volume loss consistent with physiologic aging. Periventricular white matter hypoattenuation suggestive of chronic microvascular disease. No sign of mass, hemorrhage, or midline shift. No extra-axial fluid collection. Skull base and calvarium: The visualized paranasal sinuses and mastoid air cells demonstrate no acute or significant findings. Bilateral lens replacements. Left frontal scalp soft tissue swelling, but no underlying skull fractures. IMPRESSION: No acute intracranial abnormality. No acute fracture. Please note that all CT scans at this facility use dose modulation, iterative reconstruction, and/or weight-based dosing when appropriate to reduce radiation dose to as low as reasonably achievable. Dictated by Petar Dickey MD @ 09/05/2024 9:15:57 PM (Electronically Signed)
--- NOTE | 2024-09-05 20:31 | CRLHL7_ITS ---
For Patients: As a result of the Century Cures Act, medical imaging exams and procedure reports are released immediately into your electronic medical record. You may view this report before your referring provider. If you have questions, please contact your health care provider. INDICATION: Fall on Coumadin, shortness of breath, syncope. TECHNIQUE: Chest 2 views. COMPARISON: 11/20/2020. FINDINGS: Cardiovascular and mediastinum: Stable cardiomegaly. Sternal wires in place. Atherosclerotic calcifications aortic arch. Cardiac conduction device overlies the right chest wall with appropriately positioned leads. Cardiac valve replacement. Lungs and pleural spaces: No definite acute infiltrate. Mild pulmonary scarring and or atelectasis. Small right pleural effusion. No pneumothorax. Bones and soft tissues: No significant findings. IMPRESSION: No acute findings. Dictated by Petar Dickey MD @ 09/05/2024 9:20:02 PM (Electronically Signed)
--- NOTE | 2024-09-05 20:32 | ED.FALL ---
HPI - Fall General Time Seen by Provider: 20:32 Date Seen: 09/05/24 Chief Complaint: Fall/Minor Trauma Stated Complaint: Fell and hit head/Blacked out after fall Time Seen by Provider: 09/05/24 20:25 Source: patient, family, RN notes reviewed and old records reviewed Mode of arrival: ambulatory Limitations: no limitations History of Present Illness HPI Narrative: 83-year-old male with history of pacemaker, atrial fibrillation, heart failure, chronic kidney disease, anticoagulation on Coumadin who presents today with syncope and fall. Patient reports he was walking at home, suddenly fell. He says he passed out but is little vague about whether this happened before after he fell. He does not remember having any palpitations or chest pain prior to his fall. He notes that he has had some increased weakness and shortness of breath over the last couple of weeks, no chest pain, no lower extremity swelling. No nausea, vomiting, or diarrhea. About a month ago had increased his metoprolol to help with rate control but subsequently developed increased lightheadedness and hypotension and so this was decreased. He sees cardiology at [place]. Related Data Home Medications ?Medication ?Instructions ?Recorded ?Confirmed psyllium husk 0.4 gram capsule 0.4 g PO QDAY 07/01/22 05/11/24 (Metamucil) Previous Rx's ?Medication ?Instructions ?Recorded cyanocobalamin (vitamin B-12) 1,000 mcg PO QDAY #90 caps 07/01/22 1,000 mcg capsule metoprolol tartrate 25 mg tablet 25 mg PO QDAY #90 tabs 12/24/23 sertraline 100 mg tablet 100 mg PO QDAY #90 tabs 12/24/23 torsemide 20 mg tablet 40 mg (2 x 20 mg) PO QAM #90 tabs 12/24/23 warfarin 10 mg tablet 5 - 10 mg PO QDAY #90 tabs 08/22/24 Allergies Allergy/AdvReac Type Severity Reaction Status Date / Time No Known Allergies Allergy Verified 09/05/24 20:30 [facility] Medical History Vitamin B12 deficiency (~1988) ?E53.8 - Deficiency of other specified B group vitamins (ICD-10) Acute on chronic diastolic HF (heart failure) ?I50.33 - Acute on chronic diastolic (congestive) heart failure (ICD-10) History of colonic polyps ?Z86.010 - Personal history of colonic polyps (ICD-10) Precancerous skin lesion ?L98.9 - Disorder of the skin and subcutaneous tissue, unspecified (ICD-10) Pneumonia ?J18.9 - Pneumonia, unspecified organism (ICD-10) Incisional hernia without obstruction or gangrene ?K43.2 - Incisional hernia without obstruction or gangrene (ICD-10) Hemoptysis ?R04.2 - Hemoptysis (ICD-10) Atrial fibrillation (2005) ?I48.91 - Unspecified atrial fibrillation (ICD-10) History of endocarditis (2007) ?Z86.79 - Personal history of other diseases of the circulatory system (ICD-10) History of left heart catheterization (2014) ?Z98.890 - Other specified postprocedural states (ICD-10) History of TIA (transient ischemic attack) (2015) ?Z86.73 - Personal history of transient ischemic attack (TIA), and cerebral infarction without residual deficits (ICD-10) Pulmonary nodule ?R91.1 - Solitary pulmonary nodule (ICD-10) Echocardiogram abnormal (2016) ?R93.1 - Abnormal findings on diagnostic imaging of heart and coronary circulation (ICD-10) Health care directive on file ?Z78.9 - Other specified health status (ICD-10) Surgical History History of vasectomy ?Z98.52 - Vasectomy status (ICD-10) History of coronary artery bypass graft ?Z95.1 - Presence of aortocoronary bypass graft (ICD-10) History of inguinal hernia repair (2001) ?Z98.890 - Other specified postprocedural states (ICD-10) ?Z87.19 - Personal history of other diseases of the digestive system (ICD-10) History of permanent cardiac pacemaker placement (2005) ?Z95.0 - Presence of cardiac pacemaker (ICD-10) History of aortic valve replacement with metallic valve (2006) ?Z95.4 - Presence of other heart-valve replacement (ICD-10) History of hemorrhoidectomy (2010) ?Z98.890 - Other specified postprocedural states (ICD-10) History of cholecystectomy (2010) ?Z90.49 - Acquired absence of other specified parts of digestive tract (ICD-10) H/O tricuspid valve repair (2016) ?Z98.890 - Other specified postprocedural states (ICD-10) Hx of colonoscopy (04/12/19) ?Z98.890 - Other specified postprocedural states (ICD-10) Pacemaker (~2005) ?Z95.0 - Presence of cardiac pacemaker (ICD-10) Family History Brother Atrial fibrillation Prostate cancer Sister Breast cancer Social History Narrative: Exercises 3 to 4 times per week- walking 1 h, wood working, remodeling History of cigarette smoking- quit 2003. 40 pack years , retired from [employer], 3 adult kids Social drinker- 9/week What is your current living situation?: I presently have a place to live Problems where you live: declined to answer In the past 12 months, utilities in danger of being shut off: no In past 12 months, lack of transportation kept you from medical appts, meetings, work, or getting things needed for daily living: no In the past 12 mos, have been you worried that your food would run out before you had money to buy more?: never true In the past 12 mos, the food you bought just didn't last and you didn't have money to buy more?: never true Smoking Status: Never smoker Do you use any of these nicotine containing products: None How often do you have a drink containing alcohol: 4 or more times a week How many standard drinks containing alcohol do you have on a typical day: 1 or 2 AUDIT-C Alcohol total score: 4 Non-prescribed substance use: denies use How often does anyone, including family, friends and others, physically hurt you: never How often does anyone, including family, friends and others, insult or talk down to you: never How often does anyone, including family, friends and others, threaten you with harm: never How often does anyone, including family, friends and others, scream or curse at you: never Exam Narrative: Exam Narrative: General: Well-developed and well-nourished, no acute distress Head: Left frontoparietal hematoma measuring about are 4 cm in diameter Eyes: Pupils are equal reactive, extraocular motions intact, conjunctiva clear ENT: External nose and ears are normal, posterior pharynx without erythema or exudate Neck: No midline cervical tenderness, full spontaneous range of motion the neck, trachea midline, no adenopathy Heart: Regular rate and rhythm, bowel murmur present Lungs: Trace crackles in the bases bilaterally Abdomen: Soft, nontender, nondistended with active bowel sounds Musculoskeletal: No tenderness, deformity, or edema Neurologic: Awake, alert, and oriented x3, no gross focal neurologic deficits, cranial nerves intact as tested Psych: Mood and affect are appropriate Skin: No rashes Const: Vital Signs, click to edit/add: Vital Signs - 24 hr 09/05/24 20:27 09/05/24 22:45 09/05/24 23:00 Temperature 98.1 F Pulse Rate 70 70 Pulse Rate [Pulse Oximeter] 70 Respiratory Rate 16 23 19 Blood Pressure Blood Pressure [Le ft Upper Arm] 111/65 Pulse Oximetry 95 90 93 Oxygen Delivery Me thod Room Air 09/05/24 23:02 Temperature Pulse Rate 71 Pulse Rate [Pulse Oximeter] Respiratory Rate 16 Blood Pressure 116/61 Blood Pressure [Le ft Upper Arm] Pulse Oximetry 93 Oxygen Delivery Me thod Course Course ED Course: Reviewed most recent emergency department visit from April 26 when patient was seen with sensation his heart racing, was found have an episode of nonsustained ventricular tachycardia in was discharged home after consultation with Cardiology. Reviewed most recent echocardiogram from April 2020 for with ejection fraction 59%, no wall motion abnormality. Patient with firmness of fibrillation with pacemaker, COPD, history of tricuspid valve repair, history of heart valve replacement. Patient presents today with what sounds like a syncopal episode of fall. Patient says he remembers walking and then woke up in his head on the floor. On exam here he was a scalp hematoma, CT scan is ordered as patient anticoagulated although he is mentating appropriately. Will also evaluate for possible causes syncope, patient has extensive cardiac history and certainly dysrhythmia would be possible. Patient also notes some increased shortness of breath and fatigue recently, again concerning for cardiac etiology. Labs and EKG are ordered, anticipated admission for overnight observation and further evaluation and treatment. Reevaluation(s) Time of Reevaluation #1: 21:03 Reevaluation #1: CT scan of the head in panel interpreted by me negative for acute findings including hemorrhage or skull fracture. EKG independently interpreted by me performed at 8:53 p.m. demonstrates paced rhythm rate 70, QTC 507, QRS 160, no acute ischemic changes. Compared to prior April 2024, no change Time of Reevaluation #2: 21:33 Reevaluation #2: Chest x-ray independently interpreted by me with cardiomegaly and small pleural effusion but no other acute findings. Labs independently interpreted by me with troponin 0.02 which will be rechecked. Hemoglobin 10.2 which stable for the patient, normal white blood cell count, creatinine 1.8 which is stable for the patient, BNP elevated at 6 490 with no prior for comparison. Time of Reevaluation #3: 22:44 Reevaluation #3: Repeat troponin is 0.02. Went to recheck on the patient due to changes telemetry strip, he says he is feeling little bit lightheaded which is a symptom he has had recently. Telemetry strip shows a couple of short runs (6-10 bests) of ventricular tachycardia, followed by ventricular bigeminy. Will discuss with patient's Cardiology team at [facility] but as we are unable to interrogate pacemaker here, patient likely will need to be transferred for further evaluation and treatment. Contacted [facility] to initiate transfer process. Vital Signs Vital signs: Initial Vital Signs Temperature 98.1 F 09/05/24 20:27 Temperature Source Temporal Artery Scan 09/05/24 20:27 Pulse Rate 70 09/05/24 20:27 Respiratory Rate 16 09/05/24 20:27 Blood Pressure 111/65 09/05/24 20:27 Blood Pressure Mean 80 09/05/24 20:27 Blood Pressure Position Sitting 09/05/24 20:27 Pulse Oximetry 95 09/05/24 20:27 Oxygen Delivery Method Room Air 09/05/24 20:27 Vital Signs Temperature 98.1 F 09/05/24 20:27 Pulse Rate 70 09/05/24 20:27 Respiratory Rate 16 09/05/24 20:27 Blood Pressure 111/65 09/05/24 20:27 Pulse Oximetry 95 09/05/24 20:27 Oxygen Delivery Method Room Air 09/05/24 20:27 Temperature 98.1 F 09/05/24 20:27 Pulse Rate 70 09/06/24 00:47 Respiratory Rate 16 09/06/24 00:47 Blood Pressure 108/51 L 09/06/24 00:02 Pulse Oximetry 96 09/06/24 00:47 Oxygen Delivery Method Room Air 09/05/24 20:27 - Fall Lab Data Labs: Lab Results 09/05/24 09/05/24 09/05/24 Range/Units 20:31 20:55 20:55 WBC 5.96 (4.50-11.00) K/uL RBC 3.31 L (4.30-5.90) m/uL Hgb 10.2 L (13.5-17.5) gm/dL Hct 32.0 L (37.0-53.0) % MCV 97 (80-100) fL MCH 31 (26-34) pg MCHC 32 (32-36) gm/dL RDW Coeff of Vanessa 16.4 H (11.5-15.5) % Plt Count 177 (140-440) K/uL Neut % (Auto) 88.0 H (42.0-72.0) % Lymph % (Auto) 5.4 L (20-44) % Redwood % (Auto) 5.9 (0.0-11.0) % Eos % (Auto) 0.2 (0.0-7.0) % Baso % (Auto) 0.3 (0.0-3.0) % Neut # (Auto) 5.20 (1.7-7.0) K/uL Lymph # (Auto) 0.30 L (0.90-2.90) K/uL Redwood # (Auto) 0.40 (0.00-0.90) K/UL Eos # (Auto) 0.01 (0.00-0.50) K/uL Baso # (Auto) 0.02 (0.00-0.30) K/uL Abs Immat Gran (auto) 0.01 (0.00-0.30) K/uL Imm/Tot Granulo (auto) 0.2 % INR 2.53 H Cancelled (0.91-1.10) Sodium 137 (135-149) mmol/L Potassium 4.4 (3.6-5.1) mmol/L Chloride 102 (96-114) mmol/L Carbon Dioxide 22 (20-32) mmol/L Anion Gap 13 (7-15) mEq/L BUN 37 H (7-30) mg/dL Creatinine 1.8 H (0.5-1.5) mg/dL Estimated Creat Clear 31.54 Estimated GFR 37 ml/min Glucose 126 H (60-115) mg/dL Calcium 8.9 (8.4-10.6) mg/dL Magnesium 2.3 (1.5-2.6) mg/dL NT-Pro-B Natriuret Pep 6490 pg/mL Lab Acknowledgement POC Troponin I 0.02 (0.01-0.04) ng/ml 09/05/24 09/06/24 Range/Units 22:30 00:09 WBC (4.50-11.00) K/uL RBC (4.30-5.90) m/uL Hgb (13.5-17.5) gm/dL Hct (37.0-53.0) % MCV (80-100) fL MCH (26-34) pg MCHC (32-36) gm/dL RDW Coeff of Vanessa (11.5-15.5) % Plt Count (140-440) K/uL Neut % (Auto) (42.0-72.0) % Lymph % (Auto) (20-44) % Redwood % (Auto) (0.0-11.0) % Eos % (Auto) (0.0-7.0) % Baso % (Auto) (0.0-3.0) % Neut # (Auto) (1.7-7.0) K/uL Lymph # (Auto) (0.90-2.90) K/uL Redwood # (Auto) (0.00-0.90) K/UL Eos # (Auto) (0.00-0.50) K/uL Baso # (Auto) (0.00-0.30) K/uL Abs Immat Gran (auto) (0.00-0.30) K/uL Imm/Tot Granulo (auto) % INR (0.91-1.10) Sodium (135-149) mmol/L Potassium (3.6-5.1) mmol/L Chloride (96-114) mmol/L Carbon Dioxide (20-32) mmol/L Anion Gap (7-15) mEq/L BUN (7-30) mg/dL Creatinine (0.5-1.5) mg/dL Estimated Creat Clear Estimated GFR ml/min Glucose (60-115) mg/dL Calcium (8.4-10.6) mg/dL Magnesium (1.5-2.6) mg/dL NT-Pro-B Natriuret Pep pg/mL Lab Acknowledgement Test Added POC Troponin I 0.02 (0.01-0.04) ng/ml Discharge Plan Discharge Clinical Impression: Anticoagulation goal of INR 2 to 3, Syncope, Non-sustained ventricular tachycardia Patient Disposition: Xfer [facility] Discharge Location: [facility] Activity Level: No Restrictions Discharge Diet: Regular Prescriptions: No Action psyllium husk [Metamucil] 0.4 gram capsule 0.4 g PO QDAY cyanocobalamin (vitamin B-12) 1,000 mcg capsule 1,000 mcg PO QDAY Qty: 90 4RF sertraline 100 mg tablet 100 mg PO QDAY Qty: 90 3RF metoprolol tartrate 25 mg tablet 25 mg PO QDAY Qty: 90 3RF torsemide 20 mg tablet 40 mg PO QAM Qty: 90 3RF warfarin 10 mg tablet 5 - 10 mg PO QDAY Qty: 90 0RF Protocol: Dose Management Condition: Thursday Dose/Route: 5 mg Instruction: 0.5 x 10 mg tablets Condition: Thursday Dose/Route: 10 mg Instruction: 1 x 10 mg tablet Condition: Thursday Dose/Route: 5 mg Instruction: 0.5 x 10 mg tablets Condition: Thursday Dose/Route: 10 mg Instruction: 1 x 10 mg tablet Condition: Dose/Route: 5 mg Instruction: 0.5 x 10 mg tablets Condition: Thursday Dose/Route: 10 mg Instruction: 1 x 10 mg tablet Condition: Thursday Dose/Route: 5 mg Instruction: 0.5 x 10 mg tablets Protocol Text: Adjustment Start Date: Thursday08/12/24 INR Value: 2.7 INR Date: 08/12/24 Recheck Date: 09/11/24 Rx Instructions: Take 10mg Thursday/Thursday/Thursday and 5mg all other days Stand Alone Forms: [facility] Info Instructions
[2024-09-05 21:02] LABS: Basophils Absolute Auto 0.02 K/uL (0.00-0.30); Basophils Percent Auto 0.3 % (0.0-3.0); Eosinophils Absolute Auto 0.01 K/uL (0.00-0.50); Eosinophils Percent Auto 0.2 % (0.0-7.0); Hemoglobin* 10.2 gm/dL (13.5-17.5); Immature Granulocytes Abs Auto 0.01 K/uL (0.00-0.30); Immature Granulocytes Pct Auto 0.2 %; Lymphocytes Percent Auto 5.4 % (20-44); Mean Corpuscular HGB Conc 32 gm/dL (32-36); Mean Corpuscular Hemoglobin 31 pg (26-34); Mean Corpuscular Volume 97 fL (80-100); Monocytes Percent Auto 5.9 % (0.0-11.0); Platelet Count* 177 K/uL (140-440); RDW Coefficient of Variation % 16.4 % (11.5-15.5); Red Blood Count 3.31 m/uL (4.30-5.90); White Blood Count* 5.96 K/uL (4.50-11.00)
[2024-09-05 21:06] LABS: Troponin, Point-of-Care* 0.02 ng/ml (0.01-0.04)
[2024-09-05 21:14] LABS: Slide Review Reflex No
[2024-09-05 21:15] LABS: Chloride* 102 mmol/L (96-114); Sodium* 137 mmol/L (135-149)
[2024-09-05 21:16] LABS: Potassium* 4.4 mmol/L (3.6-5.1)
[2024-09-05 21:19] LABS: Anion Gap 13 mEq/L (7-15); Blood Urea Nitrogen* 37 mg/dL (7-30); Calcium* 8.9 mg/dL (8.4-10.6); Carbon Dioxide* 22 mmol/L (20-32); Creatinine* 1.8 mg/dL (0.5-1.5); Est. Creatinine Clearance* 31.54; Estimated Glomerular Filt Rate 37 ml/min; Glucose* 126 mg/dL (60-115); Magnesium* 2.3 mg/dL (1.5-2.6)
[2024-09-05 21:28] LABS: NT Pro B Type NatriureticPept* 6490 pg/mL
[2024-09-05 22:38] LABS: Troponin, Point-of-Care* 0.02 ng/ml (0.01-0.04)
[2024-09-06] VITALS: PULSE 71; RESP 20; O2SAT 91
[2024-09-06 00:02] VITALS: BP 108/51; PULSE 71; RESP 17; O2SAT 93
[2024-09-06 00:15] VITALS: PULSE 71; RESP 20; O2SAT 95
[2024-09-06 00:28] LABS: INR 2.53 (0.91-1.10); Prothrombin Time 28.4 Seconds
[2024-09-06 00:31] VITALS: PULSE 69; RESP 22; O2SAT 94
[2024-09-06 00:45] VITALS: PULSE 72; RESP 16; O2SAT 94
[2024-09-06 00:47] VITALS: PULSE 70; RESP 16; O2SAT 96
== END 2024-09-06 01:09 | disposition short-term general hospital (02) ==
PROVIDERS: Emergency Provider Family Medicine; PCP Family Medicine
DX: I47.29 Other ventricular tachycardia (principal); I48.91 Unspecified atrial fibrillation; R53.1 Weakness; R06.02 Shortness of breath; Z79.01 Long term (current) use of anticoagulants; W18.30XA Fall on same level, unspecified, initial encounter; Y93.01 Activity, walking, marching and hiking
CPT/HCPCS: 36415; 70450; 71046; 80048; 83735; 83880; 84484; 85025; 85610; 93005; 99285

== ENCOUNTER 2024-09-12 13:24 | Outpatient (CLI) | payer MEDICARE, OTHER, SELFPAY | END 2024-09-12 13:25 | disposition home or self-care (01) | LOC: NFLDREF 13:26 | PROVIDERS: PCP Family Medicine; Visit Provider Registered Nurse | DX: I50.32 Chronic diastolic (congestive) heart failure (principal) | CPT/HCPCS: 80048 ==

== ENCOUNTER 2024-09-13 03:53 | Emergency (ER) | payer MEDICARE, OTHER, SELFPAY ==
[2024-09-13] VITALS (36 sets, daily range): BP systolic 110–128; BP diastolic 52–61; PULSE 70–74; RESP 16–18; TEMP 36.4; O2SAT 85–98; BMI 24.1
--- OUTSIDE RECORDS SUMMARY | 2024-09-13 03:56 | XMS_ITS | Encounter Summary ---
Author Organization [facility] Address [address] [place] [address] Care Team Providers Care Pharmacist Manager Name Role Phone Elsewhere, Pcp Primary Care Provider Unavailabl e Encounter Details Date Type Department Care Team (Latest Contact Info) Description 09/05/2024 Intake [facility] Social History Tobacco Use Types Packs/Day Years Used Date Smoking Tobacco: Former Cigarettes 1 50 0 05/04/1954 - 05/04/2004 Smokeless Tobacco: Never Alcohol Use Standard Drinks/Week Comments Yes 5 (1 standard drink = 0.6 oz pur e alcohol) [facility] Utilities Answer Date Recorded In the past 12 months has e electric, gas, oil, or water company threatened to shut off services in your home? No 09/06/2024 Humiliation, Afraid, Rape, and Kick questionnair e Answer Date Recorded Within the last year, have y ou been afraid of your partner or ex-partner? No 09/06/2024 Within the last year, have y ou been humiliated or emotionally abused in other ways by your partner or ex-partner? No Within the last year, have y ou been kicked, hit, slapped, or otherwise physically hurt by your partner or ex-partner? No 09/06/2024 Within the last year, have y ou been raped or forced to have any kind of sexual activity by your partner or ex-partner? No 09/06/2024 Social Connection and Isolat ion Panel [NHANES] Answer Date Recorded In a typical week, how many times do you talk on the phone with family, friends, or neighbors? More than three times a week 05/08/2022 How often do you get togethe r with friends or relatives? Twice a week 05/08/2022 How often do you attend chur or uatsdin services? More than 4 times per year [...] care, and heating? Not very hard 05/08/2022 [facility] Occupat ional Health - Occupational Stress [...] the money to buy more. Never true 09/07/19 25 Within the past 12 months, t he food you bought just didn't last and you didn't have money to get more. Never true 09/06/2024 PRAPARE - Transportation Answer Date Re corded In the past 12 months, has l ack of transportation kept you from medical appointments or from getting medications? No 10/2024 In the past 12 months, has l ack of transportation kept you from meetings, work, or from getting things needed for daily living? No 09/06/2024 Nutrition Answer Date Recorded On average, how [...] your living situation today? I have a [facility] place to live 09/06/2024 Education Answer Date Recorded What is the highest level of school you have completed or the highest degree you have received? 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 [address] [place] [phone] 09/14/2024 9:10 AM CDT Appointment Department of Laboratory Medicine and Pathology, [facility], in [place], [place] [address] [place] [address] Marquita Lo M.D. [address] [place] [phone] 09/14/2024 9:30 AM CDT Appointment Department of Cardiac Rehabilitation in [place], [place] [address] [place] [phone] Marquita Lo M.D. [address] [place] [address] 09/14/2024 2:00 PM CDT Comprehensive Visit Department of Cardiovascular Medicine in [place], [place] [address] [place] [address] Tom Plascencia M.D. [address] [place] [address] documented as of this encounter Visit Diagnoses Not on filedocumented in this encounter Care Teams Pharmacist Manager Relationship Specialty Start Date End Date Elsewhere, Pcp PCP - General Family Medicine 11/27/20 Mary Ann Sol [address] [place] [address] Hand Quilter Physician 01/17/19 documented as of this encounter
--- OUTSIDE RECORDS SUMMARY | 2024-09-13 03:56 | XMS_ITS | Encounter Summary ---
Author Organization [facility] Address [address] [place] [address] Care Team Providers Care Blue Line Hanger Name Role Phone Elsewhere, Pcp Primary Care Provider Unavailabl e Encounter Details Date Type Department Care Team (Late st Contact Info) Description 09/06/2024 2:35 PM CDT Ancillary Procedure Department of Nursing Social History Tobacco Use Types Packs/Day Years Used Date Smoking Tobacco: Former Cigarettes 1 50 0 05/04/1954 - 05/04/2004 Smokeless Tobacco: Never Alcohol Use Standard Drinks/Week Comments Yes 5 (1 standard drink = 0.6 oz pur e alcohol) [facility] Utilities Answer Date Recorded In the past 12 months has e electric, gas, oil, or water [employer] threatened to shut off services in your [...] often do you attend chur ch or roman catholic services? More than 4 times per year 05/08/2022 Do you belong to any clubs o r organizations such as catholic groups, unions, fraternal or athletic groups, or [...] and heating? Not very hard 05/08/2022 [facility] of Occupat ional Health - Occupational Stress [...] your living situation today? I have a [facility] place to live 09/06/2024 Education Answer Date Recorded What is the highest level of school you have completed or the highest degree you have received? 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 200 [place] [address] 09/14/2024 9:10 AM CDT Appointment Department of Laboratory Medicine and Pathology, [facility] in [place], [place] [address] [place] [address] Marquita Lo M.D. [address] [place] [phone] 09/14/2024 9:30 AM CDT Appointment Department of Cardiac Rehabilitation in [place], [place] [address] [place] [address] Marquita Lo M.D. [address] [place] [phone] 09/14/2024 2:00 PM CDT Comprehensive Visit Department of Cardiovascular Medicine in [place], [place] [address] [place] [address] Tom Plascencia M.D. [address] [place] [address] documented as of this encounter Procedures Procedure Name Priority Date/Time Associated Diagnosis Comments NURSING IMAGE EXAM Routine 09/06/2024 2: 27 PM CDT documented in this encounter Results * Leg, left-Nursing Image Exam (09/06/2024 2:27 PM CDT) 09/06/2024 2:24 PM CDT Narrative [facility] - 09/06/2024 2:27 PM CDT This order has been created and auto-finalized to support the import of images acquired without order. The clinical documentation to support these images can be found on the encounter that produced images. us Provider Not In System IMG NON RAD IMAGING PROCE DURES Final Result [facility] NA documented in this encounter Visit Diagnoses Not on filedocumented in this encounter Care Teams Blue Line Hanger Relationship Specialty Start Date End Date Elsewhere, Pcp PCP - General Family Medicine 11/27/20 Mary Ann Sol [address] [place] [address] Shipper Receiver Physician 01/17/19 documented as of this encounter
--- OUTSIDE RECORDS SUMMARY | 2024-09-13 03:56 | XMS_ITS | Encounter Summary ---
Author Organization [facility] Address [address] [place] [address] Care Team Providers Care Spout Liner Helper Name Role Phone Elsewhere, Pcp Primary Care Provider Unavailabl e Encounter Details Date Type Department Care Team (Late st Contact Info) Description 09/06/2024 2:25 PM CDT Ancillary Procedure Department of Nursing Social History Tobacco Use Types Packs/Day Years Used Date Smoking Tobacco: Former Cigarettes 1 50 0 05/04/1954 - 05/04/2004 Smokeless Tobacco: Never Alcohol Use Standard Drinks/Week Comments Yes 5 (1 standard drink = 0.6 oz pur e alcohol) [facility] Utilities Answer Date Recorded In the past 12 months has e electric, gas, oil, or water [employer] threatened to shut off services in your [...] often do you attend chur ch or sikh services? More than 4 times per year 05/08/2022 Do you belong to any clubs o r organizations such as christianity groups, unions, fraternal or athletic groups, or [...] care, and heating? Not very hard 05/08/2022 [facility] of Occupat ional Health - Occupational [...] your living situation today? I have a [facility] place to live 09/06/2024 Education Answer Date Recorded What is the highest level of school you have completed or the highest degree you have received? 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 in [place], [place] [address] [place] [address] Marquita Lo M.D. 200 [place] [address] 09/14/2024 9:10 AM CDT Appointment Department of Laboratory Medicine and Pathology, [facility] in [place], [place] [address] [place] [address] Marquita Lo M.D. [address] [place] [phone] 09/14/2024 9:30 AM CDT Appointment Department of Cardiac Rehabilitation in [place], [place] [address] [place] [address] Marquita Lo M.D. [address] [place] [phone] 09/14/2024 2:00 PM CDT Comprehensive Visit Department of Cardiovascular Medicine in [place], [place] [address] [place] [address] Tom Plascencia M.D. [address] [place] [address] documented as of this encounter Procedures Procedure Name Priority Date/Time Associated Diagnosis Comments NURSING IMAGE EXAM Routine 09/06/2024 2: 25 PM CDT documented in this encounter Results * Leg, right-Nursing Image Exam (09/06/2024 2:25 PM CDT) 09/06/2024 2:24 PM CDT Narrative [...] on filedocumented in this encounter Care Teams Spout Liner Helper Relationship Specialty Start Date End Date Elsewhere, Pcp PCP - General Family Medicine 11/27/20 Mary Ann Sol [address] [place] [address] Intervention Specialist Physician 01/17/19 documented as of this encounter
--- OUTSIDE RECORDS SUMMARY | 2024-09-13 03:56 | XMS_ITS | Encounter Summary ---
Author Organization [facility] Address [address] [place] [address] Care Team Providers Care Fermenting Cellars Receiver Name Role Phone Elsewhere, Pcp Primary Care Provider Unavailabl e Encounter Details Date Type Department Care Team (Late st Contact Info) Description 09/05/2024 12:45 AM CDT - 09/06/2024 1:04 AM CDT Emergency [facility] Emergency Department [address] [place] [phone] Discharge Disposition: ED Dismiss - Never Arrived Social History Tobacco Use Types Packs/Day Years Used Date Smoking Tobacco: Former Cigarettes 1 50 0 05/04/1954 - 05/04/2004 Smokeless Tobacco: Never Alcohol Use Standard Drinks/Week Comments Yes 5 (1 standard drink = 0.6 oz pur e alcohol) [facility] Utilities Answer Date Recorded In the past 12 months has [facility] [employer], gas, oil, or water [employer] threatened to shut off services in your [...] often do you attend chur ch or orthodoxy services? More than 4 times per year 05/08/2022 Do you belong to any clubs o r organizations such as sikhism groups, unions, fraternal or athletic groups, or [...] care, and heating? Not very hard 05/08/2022 [facility] - [facility]ational Stress Questionnaire Answer Date [...] your living situation today? I have a [facility] place to live 09/06/2024 Education Answer Date Recorded What is the highest level of school you have completed or the highest degree you have received? 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 enoxaparin (Lovenox) 80 mg/0.8 mL injection Inject 0.8 mL (80 mg total) under the skin 2 (two) times a day for 4 doses. 3.2 mL 09/10/2024 2:10 PM CDT 09/10/2024 metoprolol succinate (Toprol XL) 25 mg 24 hr tablet Take 1 tablet (25 mg total) by mouth daily. Do not crush or chew. 30 tablet 3 09/11/2024 psyllium (METAMUCIL) 0.52 gram capsule Take 1-2 capsules by mouth daily. sertraline (ZOLOFT) 100 mg tablet Take 1 tablet by mouth daily. 09/13/2014 torsemide (Demadex) 20 mg tablet Take 40 mg by mouth daily. warfarin (COUMADIN) 10 mg tablet Take 0.5-1 tablets (5-10 mg total) by mouth daily. 11/29/20: 10 mg; 11/30/20: 5 mg, then resume home 5 mg on Mondays and with 10 mg all other days of the week 11/29/2020 metoprolol succinate (Toprol XL) 50 mg 24 hr tabletIndications :Palpitations,Sup raventricular Tachycardia, Unspecified (HCC) Take 1 tablet (50 mg total) by mouth daily. Do not crush or chew. 90 tablet 3 05/11/2024 documented as of this encounter Plan of Treatment Upcoming Encounters Date Type Department Care Team (Latest Contact Info) Description 09/14/2024 8:30 AM CDT Appointment Department of Radiology, [facility], in [place], [place] [address] [place] [address] Marquita Lo M.D. [address] [place] [phone] 09/14/2024 9:10 AM CDT Appointment Department of Laboratory Medicine and Pathology, [facility] in [place], [place] [address] [place] [address] Marquita Lo M.D. [address] [place] [phone] 09/14/2024 9:30 AM CDT Appointment Department of Cardiac Rehabilitation in [place], [place] [address] [place] [address] Marquita Lo M.D. [address] [place] [phone] 09/14/2024 2:00 PM CDT Comprehensive Visit Department of Cardiovascular Medicine in [place], [place] [address] [place] [address] Tom Plascencia M.D. [address] [place] [address] documented as of this encounter Visit Diagnoses Not on filedocumented in this encounter Care Teams Fermenting Cellars Receiver Relationship Specialty Start Date End Date Elsewhere, Pcp PCP - General Family Medicine 11/27/20 Mary Ann Sol [address] [place] [address] Director Of Food And Nutrition Services Physician 01/17/19 documented as of this encounter
--- OUTSIDE RECORDS SUMMARY | 2024-09-13 03:57 | XMS_ITS | Encounter Summary ---
Author Organization [facility] Address [address] [place] [address] Care Team Providers Care Spot Washer Name Role Phone Elsewhere, Pcp Primary Care Provider Unavailabl e Encounter Details Date Type Department Care Team (Late st Contact Info) Description 09/08/2024 Clinical Communication [facility] [address] [place] [phone] Deanne Kilpatrick M.D., M.S. [address] [place] [phone] Social History Tobacco Use Types Packs/Day Years Used Date Smoking Tobacco: Former Cigarettes 1 50 0 [birth year]/04/1954 - 05/04/2004 Smokeless Tobacco: Never Alcohol Use Standard Drinks/Week Comments Yes 5 (1 standard drink = 0.6 oz pur e alcohol) [facility] Utilities Answer Date Recorded In the past 12 months has [facility] [employer], gas, oil, or water [employer] threatened to shut off services in your [...] How often do you attend chur or zoroastrian services? More than 4 times per year 05/08/2022 Do you belong to any clubs o r organizations such as hinduism groups, unions, fraternal or athletic groups, or [...] care, and heating? Not very hard 05/08/2022 [facility] of Occupat ional Health - [...] your living situation today? I have a [facility] place to live 09/06/2024 Education Answer Date Recorded What is the highest level of school you have completed or the highest degree you have received? 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 200 [place] [address] 09/14/2024 9:10 AM CDT Appointment Department of Laboratory Medicine and Pathology, [facility] in [place], [place] [address] [place] [address] Marquita Lo M.D. [address] [place] [address] 09/14/2024 9:30 AM CDT Appointment Department of Cardiac Rehabilitation in [place], [place] [address] [place] [address] Marquita Lo M.D. [address] [place] [phone] 09/14/2024 2:00 PM CDT Comprehensive Visit Department of Cardiovascular Medicine in [place], [place] [address] [place] [address] Tom Plascencia M.D. [address] [place] [phone] documented as of this encounter Visit Diagnoses Not on filedocumented in this encounter Care Teams Spot Washer Relationship Specialty Start Date End Date Elsewhere, Pcp PCP - General Family Medicine 11/27/20 Mary Ann Sol [address] [place] [address] Senior Qc Technician Physician 01/17/19 documented as of this encounter
--- OUTSIDE RECORDS SUMMARY | 2024-09-13 03:57 | XMS_ITS | Data Portability ---
Author Organization [facility] Address [address] [place] [address] Assessment No assessment recorded. Plan of Treatment [...] Organization Details Recorded Time Transient cerebral ischemia [id number] Active Not Available [facility] 6 07:12:27 Problem Notes None recorded. Medical Equipment None Reported. Vitals None Recorded Social History None recorded. Functional Status None recorded. Mental Status None recorded. Family History Nothing Reported. Medical History No medical history recorded. Past Encounters Encounter ID Performer Location Encounter Start Date Encounter Closed Date Diagnosis/Indication Diagnosis SNOMED-CT Code Diagnosis ICD10 Code Diagnosis Note [id number] Oneil Wahl MD [facility] _IP [id number] [facility] [address] [place] [address] 06/28/2015 00:00:00 06/29/2015 00:00:00 Transient cerebral ischemia [id number] Health Concerns Section Related Observation LastModified by Organization Detai ls LastModified Time None Recorded Concern Status LastModified by Organization Details LastModified Time None Recorded Advance Directives Directive None Recorded Payers Insurance Date Sequence Insurance Name Policy Number Policy Mariscal Covered Member ID Mariscal Member ID Guarantor Name 08/13/2022 1 [employer] (PPO) [id number] Sam Gross [id number] Sam Gross 08/13/2022 2 [place] Sam Gross [id number] Sam Gross 08/13/2022 1 [place] Sam Gross [id number] Sam Gross 08/13/2022 2 [facility] (O) [id number] Sam Gross [id number] Sam Gross 08/13/2022 2 [employer] (O) [id number] Sam Gross [id number] Sam Gross 08/13/2022 1 [employer] (MOVED TO HOLD) Sam Gross 08/13/2022 2 [employer] ENHANCED PLAN (MEDICARE SUPPLEMENT) Sam Gross
--- OUTSIDE RECORDS SUMMARY | 2024-09-13 03:57 | XMS_ITS | Encounter Summary ---
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 [address] [place] [address] HEART CATHETERIZATION - RIGHT Social History Tobacco Use Types Packs/Day Years Used Date Smoking Tobacco: Former Cigarettes 1 50 0 05/04/1954 - 05/04/2004 Smokeless Tobacco: Never Alcohol Use Standard Drinks/Week Comments Yes 5 (1 standard drink = 0.6 oz pur e alcohol) [facility] Utilities Answer Date Recorded In the past 12 months has [facility] [employer], gas, oil, or water [employer] threatened to shut off services in your [...] often do you attend chur ch or voodoo services? More than 4 times per year 05/08/2022 Do you belong to any clubs o r organizations such as faith groups, unions, fraternal or athletic groups, or [...] when you are drinking? 1 or 2 Q3: How often do you have si x or more drinks on one occasion? Never 05/08/2022 Overall Financial Resource Strain (CARDIA) Answe r Date Recorded How hard is it for you to pa y for the very basics like food, housing, medical care, and heating? Not very hard 05/08/2022 [facility] - Occupational [...] your living situation today? I have a [facility] place to live 09/06/2024 Education Answer Date Recorded What is the highest level of school you have completed or the highest degree you have received? Bachelor's degree (e.g., BA, AB, BS) 01/13/2019 Sex and Gender Information Value Date Recorded Sex Assigned at Male 08/22/2018 2:26 PM CDT Legal Sex Male 11:[address] Gender Identity Male 08/22/2018 2:26 PM CDT Sexual Orientation Straight 08/22/2018 2: 26 PM CDT documented as of this encounter Last Filed Vital Signs Vital Sign Reading Time Taken Comments Blood Pressure 141/55 09/07/2024 5:53 PM CDT Pulse 70 09/07/2024 5:53 PM CDT Temperature 36.8 C (98.2 F) 09/07/2024 3:57 PM CDT Respiratory Rate 18 09/07/2024 12:00 PM CDT Oxygen Saturation 93% 09/07/2024 5:53 PM CDT Inhaled Oxygen Concentration - - Weight 78.7 kg (173 lb 8 oz) 09/06/2024 5:45 AM CDT Height 177.8 cm (5' 10) 09/06/2024 5:45 AM CDT Body Mass Index 23.88 09/06/2024 5:45 AM CDT documented in this encounter Discharge Summaries * Thalia Nicholson M.D. - 09/10/2024 12:46 PM CDT CARDIOLOGY HOSPITAL DISCHARGE SUMMARY DATE OF ADMISSION: 09/06/2024 DATE OF DISCHARGE: 09/10/2024 Discharge Provider: Zhou Meredith M.D. Discharge Provider Team: RST CARD 1 PRINCIPAL DIAGNOSIS Syncope DISMISSAL DIAGNOSES Syncope Pulmonary Hypertension DISCHARGE DISPOSITION: Home or Self Care [1] Medications changed during your hospitalization: Medications changed: Torsemide held until follow-up with primary care provider. Medications added: Enoxaparin 80 mg twice daily Recommendations for Primary Care Provider: Recommend repeat BMP to ensure improvement in kidney function. Recommend INR. Warfarin was held for right heart catheterization. He was bridged with Enoxaparin in setting of subtherapeutic INR. Consider stopping enoxaparin if INR within therapeutic range (2.0-3.0). Consider re-starting home diuretic. Home torsemide held in setting of acute kidney injury and mild hypovolemia. Consideration of GDMT with Jardiance 10 mg FOLLOW-UP APPOINTMENTS Scheduled Appointments 09/14/2024 8:30 AM DX [facility] [address] Radiology 09/14/2024 9:10 AM LAB BLOOD [facility] Laboratory Medicine 09/14/2024 9:30 AM CVD SIX MIN WALK 01 [facility] Cardiovascular Disease 09/14/2024 2:00 PM Tom Plascencia M.D. Cardiovascular Disease For appointment details refer to your Patient Appointment Guide. HOSPITAL COURSE Admission Weight: 78.7 kg Dismissal Weight: 75.5 kg BMI: Body mass index is 23.88 kg/m??. Mr. Sam Gross is a 83 y.o. male who presented after a syncopal episode. 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 He had no prodromal symptoms or post-syncopal confusion. Prior to this episode, he was in his usual state of health. Given his symptoms, he presented to the emergency department for further evaluation. On arrival to the emergency department, he was hemodynamically stable. ECG showed a ventricular-paced rhythm without ischemic changes. His troponins were adynamic. Interrogation of his pacemaker revealed episodes of non-sustained ventricular tachycardia, which were not correlated to timing of symptom onset. He was admitted to theCardiology Service for further evaluation and management. During his hospitalization, we continued with inpatient monitoring of his heart rhythm. This revealed brief episodes of nonsustained ventricular tachycardia which were asymptomatic. No other arrhythmias, including bradyarrhythmias, were identified. His pacemaker was interrogated and appeared to be working well. The Heart Rhythm Service was consulted and felt his syncopal episode was unlikely to be arrhythmogenic in nature. We obtained a TTE to evaluate for structural etiologies of cardiac syncope. This revealed a severely enlarged right ventricle with increased right ventricular systolic pressure of 78 mmHg, increased from prior. His mechanical aortic prosthesis was functioning appropriately and there was no progression of his known tricuspid regurgitation status-post tricuspid valve repair. He underwent right heart catheterization on 09/07. 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 V/Q scan did not reveal pulmonary emboli. Though he had severe dilatation of the main pulmonary artery, there was no evidence of compression of the left main coronary artery on CT angiogram. Ov erall, his clinical picture was consistent with Group 2 Pulmonary Hypertension. He will follow-up with Pulmonary Hypertension clinic as an outpatient. He was diuresed to optimize heart function. He had a robust response to IV diuresis with subsequent elevation in creatine, felt to be pre-renal due to mild hypovolemia. His home diuretics were held with plan to re-start as directed by primary care provider following discharge. Overall, the etiology of his syncope was unclear, possible orthostaticor vasovagal. However, no arrhythmia or cardiac structural etiologies were identified. With resolution of his symptoms, he was deemed safe for discharge to home with close follow-up with his primary care provider and pulmonary hypertension clinic. TEST RESULTS PENDING AT DISCHARGE: Pending Labs None CONDITION ON DISCHARGE: Stable. DIET AT DISCHARGE: Cardiac diet PRIMARY PROVIDER Patient Care Team: Myrna Sol M.D. as External Primary Care Physician (Family Medicine) Primary Care Providers: Elsewhere, Pcp (General) No address on file Primary Care Provider Phone Number: None Primary Care Provider Fax Number: None Cosigned by Zhou Meredith M.D. at 09/10/2024 2:23 PM CDT documented in this encounter Discharge Instructions * Discharge Instructions* Thalia Nicholson M.D. - 09/06/2024 7:53 AM CDT You were discharged from the RST CARD 1 Service. Please identify this service name if you call withquestions after hospitalization. Diuretic Titration: - Monitor weight every morning after voiding and before eating, discharge weight was 75.5 lbs. - If weight increases by 3 lbs in 1 day or 5 lbs in a week, re-start Torsemide 40 mg until weight returns to baseline. - If you are requiring increased doses of Torsemide please notify your provider as you will need close monitoring of your renal function and potassium. - If you develop dry mouth, lightheadedness, or feeling like passing out, contact your provider forfurther guidance. * Attachments The following attachments cannot be sent through Care Everywhere. * Enoxaparin (By injection) (Lithuanian) documented in this encounter Medications at Time of Discharge [...] week 11/29/2020 documented as of this encounter Progress Notes * Domingo Ramsay M.B.B.S. - 09/09/2024 7:23 PM CDT Images from the original note were not included. SUBJECTIVE REFERRAL Cardiology 1 Doing well today. Diuresed well yesterday. This morning while on a walk around the unit had dizziness. Did not fall. There was short run of VTon tele. This was similar episode of palpitation that happens at home. OBJECTIVE PHYSICAL EXAM Vitals: 09/09/24 1400 09/09/24 1540 09/09/24 1553 09/09/24 1641 BP: 128/58 113/62 (!) 107/45 103/57 BP Location: Left arm;Upper Patient Position: Sitting Pulse: 71 72 Resp: 22 20 Temp: 37 ??C 36.9 ??C TempSrc: Oral Oral SpO2: 95% 96% Weight: Height: General: Well appearing. No conversational dyspnea. Eyes: Anicteric sclerae. ENT: No oropharyngeal lesions. Vessels: JVD to angle of jaw Lymph: No cervical or supraclavicular lymphadenopathy. Heart: 3/6 systolic murmur at LLSB. Lungs: Clear to auscultation bilaterally without wheezes or crackles Abdomen: Soft, nontender. Extremities: No lower extremity edema. Skin: No appreciable rashes or lesions STUDIES Recent Results (from the past 24 hours) Prothrombin Time (PT) Collection Time: 09/09/24 5:18 AM Result Value Prothrombin Time, P 19.2 (H) INR 1.7 CBC without Differential Collection Time: 09/09/24 9:42 AM Result Value Hemoglobin 10.4 (L) Hematocrit 32.0 (L) Erythrocytes 3.38 (L) MCV 94.7 RBC Distrib Width 16.7 (H) Platelet Count 198 Leukocytes 7.3 Renal Function Panel Collection Time: 09/09/24 9:42 AM Result Value Potassium, S 4.8 Sodium, S 135 Chloride, S 95 (L) Bicarbonate, S 27 Anion Gap 13 BUN (Blood Urea Nitrogen), S 27 (H) Creatinine 1.73 (H) Estimated GFR (eGFR) 38 (L) Calcium, Total, S 9.0 Glucose, S 129 Albumin, S 3.8 Phosphorus (Inorganic), S 3.2 Intake/Output Summary (Last 24 hours) at 09/09/2024 1928 Last data filed at 09/09/2024 1457 Gross per 24 hour Intake 1480 ml Output 3500 ml Net -2020 ml Echo: 09/06/2024 Final Impressions 1. Severely enlarged right ventricular chamber size with severely reduced systolic function. Averaged right ventricular free wall longitudinal peak systolic strain is -12% (normal </= -25%). 2. Estimated right ventricular systolic pressure 78 mmHg (right atrial pressure of 20 mmHg). 3. Status post tricuspid valve repair with 28 mm Carbo-Medics AnnuloFlex band (01-NOV-2014). 4. Severe tricuspid valve regurgitation. Likely due to combination of annular dilatation and devicelead impingement. 5. Tricuspid valve diastolic mean Doppler gradient 2 mmHg (heart rate 71 BPM). 6. 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 7. Aortic valve prosthetic leaflet motion not well visualized. Unable to measure mean gradient due to challenging Doppler alignment. 8. Normal left ventricular chamber size. Calculated ejection fraction 63%. 9. Abnormal ventricular septal motion - post-operative without other regional wall motion abnormalities. 10. Severely enlarged inferior vena cava size with no inspiratory collapse. 11. Tiny posterior pericardial effusion. 12. Compared to the report of 04/21/2024 no significant change has occurred. Side by side comparison of images performed. Findings Echo performed at the patient's bedside. Echocardiogram performed per left ventricular function protocol. Last full echocardiogram performed 04/21/2024. LEFT VENTRICLE:Normal left ventricular chamber size. Calculated 2-D linear left ventricular ejection fraction 63%. No dynamic left ventricular outflow tract obstruction at rest or with Valsalva. Abnormal ventricular septal motion - post- operative without other regional wall motion abnormalities. Indeterminate left ventricular filling pressure. RIGHT VENTRICLE:Severely enlarged right ventricular chamber size. Severely reduced right ventricular systolic function. Estimated right ventricular systolic pressure 78 mmHg (right atrial pressure of20 mmHg). Averaged right ventricular free wall longitudinal peak systolic strain is -12% (normal </= -25%). ATRIA:Mildly enlarged left atrial size by visual estimate. Severely enlarged right atrial size by visual estimate. 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 Trivial aortic valve prosthetic regurgitation. No aortic valve periprosthetic regurgitation. Thickened mitral valve. Mildly calcified mitral annulus. Mild mitral valve regurgitation. Pulmonary valve not well visualized. Status post tricuspid valve repair with 28 mmCarbo-Medics AnnuloFlex band (01-NOV-2014). Tricuspid valve diastolic mean Doppler gradient 2 mmHg (heart rate 71 BPM). Severe tricuspid valve regurgitation. OTHER ECHO FINDINGS:Severely enlarged inferior vena cava size with no inspiratory collapse. Device lead (s) identified in right atrium and right ventricle. No intracardiac mass or thrombus, but the left atrial appendage cannot be visualized adequately with transthoracic echo to exclude thrombus in t his location. Tiny posterior pericardial effusion. [facility] 09/08/2024 Right heart catheterization: RA 18 with V-wave 22, PA 76/26/44, PWP 16, cardiac output 5.3/2.7, PVR5.3 harvey unit, systemic side 89%, PA sat 46%. Nitric oxide PA 74/24/41, PA WP 22, cardiac output 5.3/2.7 PVR 3.6, systemic side 91, PA sat 48%. Findings indicative of severely elevated RA pressure with V-wave of tricuspid regurgitation, mildly elevated wedge, normal cardiac index moderately elevated PVR. Nitric oxide slightly reduced PA pressure and PVR but some rise in wedge. ASSESSMENT / PLAN # Pulmonary Hypertension, likely group 2 (No RHC yet), RVSP 78\ # Acute on chronic heart failure # NSVT on device interrogation # Permanent atrial fibrillation s/p AV node ablation and subsequent dual-chamber pacemaker placement 2004 # s/p 25 mm Carbo-Medics mechanical aortic valve prosthesis with Hemashield ascending aorta graft 09/10/2007 # Status post tricuspid valve repair with 28 mm Carbo-Medics AnnuloFlex band 11/01/2014 Overall his Pulmonary hypertension is likely in the setting of heart disease. He does have other risk factors for PH such as TIM. He denies any hx of PE and has been on AC with warfarin. His PFTs from 2020 show that he had mild obstructive ventilatory defect with moderately reduced DLCO. Does not have any Hx of Connective tissue disease. 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 Group 2 PH Diuresed well yesterday with net negative 3L Creatinine bumped up slightly to 1.73 from 1.45 yesterday, BUN was stable. Plan - Continue diuresis. Agree to give a holiday today and reassess with repeat BMP tomorrow. - Consider VQ scan with SPECT CT to rule out CTEPH. (Although less likely) - Follow up in Pulmonary Hypertension Clinic as planned. Thank you for the consult. Do not hesitate to reach out to Pulmonary hypertension team with any questions or concerns. Discussed with Dr Perez Cosigned by Mynor Perez M.D. at 09/12/2024 8:26 AM CDT * Zhou Meredith M.D. - 09/09/2024 2:44 PM CDT SUBJECTIVE I evaluated Mr. Gross on team rounds. Taking over service today. Patient admitted after unwitnessed syncope. I note past history of mechanical aortic valve on warfarin. Atrial fibrillation with permanent pacemaker after AV marce ablation in 2004. Pacemaker interrogation following his recent fall showed nonsustained VT which was not thought to likely have contributed to his event. This morning, while walking in the hallway, he felt somewhat lightheaded and symptomatic with palpitations. Monitor showed quite a lot of ventricular ectopy but nothing more than 3-4 sequential beats. Patient doing okay now. OBJECTIVE BP 128/58 Pulse 71 Temp 37 ??C (Oral) Resp 22 Ht 177.8 cm Wt 75.2 kg SpO2 95% BMI 23.79 kg/m?? . I have reviewed the vital signs, and laboratory and imaging data. I agree with the interval historyand examination as documented today by Dr. Kilpatrick. 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 Kilpatrick. Inpatient monitoring of his rhythm has not shown any major arrhythmia other than nonsustained VT of 3-4 beats at the most. No Abelino arrhythmias. Pacemaker working well. Heart rhythm Service did not feel that his episode was arrhythmogenic and I suspect that this is correct. An echocardiogram shows continued presence of pulmonary hypertension whichis severe. Moderately severe pressures were also noted 3-4 years ago. He has severe right ventricular enlargement and severely reduced systolic function. Estimated RVSP 78 mmHg. Also has severe tricuspid regurgitation status post tricuspid valve repair. Mechanical aortic prosthesis functioning normally. He appears to have symptomatic ventricular ectopy but still not clear that this caused his syncopalepisode. His cardiac index is preserved and he has pacemaker in place. We will consider increasing beta-carolina dose. He has severe pulmonary hypertension and severe tricuspid valve regurgitation. The pulmonary hypertension may be a mix of pre and postcapillary (note mildly elevated wedge pressure at rest). No reversibility with inhaled NO. Await further recommendations from Pulmonary hypertension consult Service.The question has been raised as to whether or not he may have left main compression from enlarged pulmonary artery. We will settle this with CTCA. Zhou Meredith M.D. 09/09/2024 * Deanne Kilpatrick M.D., M.S. - 09/09/2024 11:11 AM CDT Images from the original note were not included. RST CARD 1 PROGRESS NOTE SUBJECTIVE HISTORY OF PRESENT ILLNESS Mr. Gross is a 83 y.o. male who presented with first unwitnessed syncopal episode. He has a history of mechanical aortic valve on warfarin, AFib s/p AVN ablation 2004 with pacemaker placement, and non-sustained VT. INTERVAL EVENTS: - Overnight: No significant events - This morning, patient reported feeling well. However, around 7.39 AM while patient was walking inthe hallway, he felt lightheaded and dyspneic, so walked back to the room. He also reported palpitation similar to his episodes at home which usually happens at night. - EKG strip during the events showed short runs of VT - Orthostatic vitals: lying 104/59 HR 71, sitting 110/58 HR 71, standing 99/54 HR 70 - I/O 1.9/5.2 (negative 3.3) - Creatinine 1.73 (increased from 1.45) OBJECTIVE PHYSICAL EXAMINATION General: Alert, interactive, not acutely ill. Skin: No rashes or lesions. Eyes: Pupils equal and round. Sclera anicteric. ENT: Hearing grossly intact. Dentition intact. No oral or pharyngeal erythema or lesions noted. Lungs: Clear to auscultation. No wheezes or crackles. Heart: Irregular irregular. Mechanical click in the aortic position with associated systolic flow murmur No lower extremity edema. JVP not elevated. Abdomen: Soft, flat, bowel sounds normoactive, nontender, nondistended, no palpable masses or organomegaly. Neuro: Gross strength 5/5 in all extremities. Mental: Mood and affect congruent. Labs: INR 1.7 ASSESSMENT / PLAN Mr. Gross is a 83 y.o. male hospitalized on RST CARD 1 for syncope query from pulmonary hypertension. Work up for other causes of syncope including arrhythmia, carotid artery stenosis, orthostatic hypotension were negative so far. D-dimer was slightly elevated, but he had CKD and does not have anynew oxygen requirement or tachycardia suggestive of pulmonary embolism, so decision was made to forego CTPE. TTE yesterday demonstrated RV dilatation and elevated RVSP at 78 mmHg. We engaged Pulmonary Hypertension service, and right heart catheterization was completed 09/07. PH service recommended optimizing volume and GDMT in the setting of his acute right-sided heart failure, noting that he has severe TR complicating volume assessment. From metabolic screening, he TSH is slightly elevated with normal FT4 suggestive of subclinical hypothyroidism. Plan Appreciate Pulmonary hypertension recommendations Diuresis, optimize volume status prior to discharge Optimize GDMT V/Q scan with SPECT CT Obtain CTA coronary artery Hold off on diuretics, consider resuming home does tomorrow Discuss with HRS # Syncopal episode, query secondary to pulmonary hypertension and right-sided heart failure versus symptomatic VT # Severe tricuspid regurgitation # Acute decompensated right-sided heart failure, likely secondary to severe TR # NSVT, query secondary to acute right-sided heart failure #Permanent AFib s/p AVN ablation 2004 #Status post dual-chamber pacemaker for pacemaker dependence post AV marce ablation #Background of NSVT under investigation #Status post 25 mm Carbo-Medics mechanical aortic valve prosthesis with Hemashield ascending aorta graft (10-SEP-2007). on warfarin, target INR 2-3 #Status post tricuspid valve repair with 28 mm Carbo-Medics AnnuloFlex band (01-NOV-2014) - No recurrent syncope. Clinically well. Patient's reported dry weight is 172 lbs (78 kg). - Right heart catheterization 09/07: PAWP trina with nitric oxide - Subtherapeutic INR, bridging with Lovenox until INR 2.0-3.0 - Carotid ultrasound: no significant stenosis - D-dimer 897; CTPE not performed - TTE 09/06/2024: Severely enlarged right ventricular chamber size with severely reduced systolic function, estimated right ventricular systolic pressure 78 mmHg (right atrial pressure of 20 mmHg), severe tricuspid valve regurgitation - Obtain CTA coronary artery - No orthostatic hypotension - Appreciate HRS's input Optimize volume status Continue metoprolol succinate as tolerated for intermittent NSVT - Appreciate Pulmonary Hypertension service Optimize volume status Optimize GDMTs V/Q scan with SPECT CT - Home medication: Continue metoprolol 25 mg daily, sertraline 100 mg daily Hold diuretics, consider resuming home torsemide 40 mg tomorrow # Subclinical hypothyroidism - Outpatient follow-up VTE Prophylaxis: Warfarin (INR goal 2-3), currently subtherapeutic, bridging with lovenox Surrogate Decision Maker: Living Situation Before Admission: Home. Discharge Plan (equipment, therapy, and facility): Likely home. Plan discussed with RST CARD 1 Country Sales Manager, Dr. Lo, who was present during diaz portions of the evaluation today. Please page the [employer] AGT CARD 1 service pager at [phone] with any questions. Deanne Kilpatrick MD (Yui) PGY-1, Preliminary Internal Medicine [facility] Pager [phone] * David Avina Pharm.D., R.Ph., [facility] - 09/09/2024 8:46 AM CDT Pharmacist Progress Note Reason for admission: Syncope [R55] PMH: Afib s/p AVNA/PPM 2004, hx NSVT, Hx CarboMedics mAVR 2007, hx TV repair 2014, mild/moderate MR/TRr, CAD?, hx TIA 2016 Medical History[1] OBJECTIVE Neuro: sertraline CV: RHF/pulm HTN- prn IV lasix; NSVT- metoprolol XL 25 qd; mAVR- warfarin Neph: Estimated Creatinine Clearance: 40.3 mL/min (A) (by C-G formula based on SCr of 1.45 mg/dL (H)). Baseline unk PPX: warfarin Warfarin Warfarin Indication: Atrial fibrillation (AF); Aortic valve - Mechanical Target INR: 2 - 3 DOAC Assessment: [facility] AVR Warfarin Administrations (last 168 hours) Date/Time Action Medication Dose 09/08/24 1750 Given warfarin tablet 10 mg ([place]) 10 mg 09/07/24 1929 Given warfarin tablet 10 mg ([place]) 10 mg 09/06/24 1813 No Dose Today warfarin ([place]) NO Dose Today INR (no units) Date Value Status 09/09/2024 1.7 Final 09/08/2024 1.7 Final 09/07/2024 1.7 Final 09/07/2024 2.1 Final 09/06/2024 3.1 Final Medication Reconciliation: Held: torsemide Changed: - New: TBD ASSESSMENT / PLAN Syncope without prodrome PPM interrogated without findings (NSVT run noted but not correlated), continues recently decreasedmetoprolol XL 25 mg daily. HRS consulted CTCA to assess LM compression by pulm artery New dx Pulmonary HTN IV diuresis as needed (keep K>4, Mg>2) GDMT optimization with MRA (pending K+ trend) +/- SGLT2i (Jardiance $727 for 90 days) VQ/SPECT per Pulm CTCA to assess LM compression by pulm artery Mechanical AVR on warfarin, INR goal 2-3. Home dosing 5 mg MWF and 10 mg all other days. INR subtherapeutic at 1.7, bridging with LMWH. Will provide 10 mg dose tonight, likely resume home dose tomorrow. David Avina Pharm.D., R.Ph., BCPS [1] Past Medical History: Diagnosis Date Atrial Fibrillation Unspecified (HCC) 2005 Blood Transfusion No Diagnosis 2006 Cataract 2011 Chronic Obstructive Pulmonary Disease (HCC) Concussion Loss Of Consciousness Unspecified Duration Initial Coronary Artery Disease (Unspecified) Depressive Disorder 2006 Gallbladder Disorder Heart Failure NOS Other Injury Of Unspecified Body Region Pneumonia Polyp Colon Renal Disease Skin Cancer (Primary) NOS Sleep Apnea Transient Ischemic Attack 2016 * Deanne Kilpatrick M.D., M.S. - 09/08/2024 12:48 PM CDT RST CARD 1 PROGRESS NOTE SUBJECTIVE HISTORY OF PRESENT ILLNESS Mr. Gross is a 83 y.o. male who presented with first unwitnessed syncopal episode. history of mechanical aortic valve on warfarin, afib s/p AVN ablation 2004 with pacemaker placement, and non-sustained VT. INTERVAL EVENTS: - Underwent RHC yesterday which demonstrated rise in PAWP. No acute complications. - INR subtherapeutic yesterday, so bridging with Lovenox 80 mg BID was started - Patient remained well and no syncope. OBJECTIVE PHYSICAL EXAMINATION General: Alert, interactive, not acutely ill. Skin: No rashes or lesions. Eyes: Pupils equal and round. Sclera anicteric. ENT: Hearing grossly intact. Dentition intact. No oral or pharyngeal erythema or lesions noted. Lungs: Clear to auscultation. No wheezes or crackles. Heart: Irregular irregular. Mechanical click in the aortic position with associated systolic flow murmur No lower extremity edema. JVP not elevated. Abdomen: Soft, flat, bowel sounds normoactive, nontender, nondistended, no palpable masses or organomegaly. Neuro: Gross strength 5/5 in all extremities. Mental: Mood and affect congruent. Labs: INR 1.7 ASSESSMENT / PLAN Mr. Gross is a 83 y.o. male hospitalized on RST CARD 1 for syncope query from pulmonary hypertension. Work up for other causes of syncope including arrhythmia, carotid artery stenosis, orthostatic hypotension were negative so far. D-dimer was slightly elevated, but he had CKD and does not have anynew oxygen requirement or tachycardia suggestive of pulmonary embolism, so decision was made to forego CTPE. TTE yesterday demonstrated RV dilatation and elevated RVSP at 78 mmHg. We engaged Pulmonary Hypertension service, and right heart catheterization was completed 09/07. PH service recommended optimizing volume and GDMT in the setting of his acute right-sided heart failure, noting that he has severe TR complicating volume assessment. From metabolic screening, he TSH is slightly elevated with normal FT4 suggestive of subclinical hypothyroidism. Plan Appreciate Pulmonary hypertension recommendations Diuresis, optimize volume status prior to discharge Optimize GDMT # Syncopal episode, query secondary to pulmonary hypertension and right-sided heart failure # Severe tricuspid regurgitation # Acute decompensated right-sided heart failure, likely secondary to severe TR # NSVT, query secondary to acute right-sided heart failure #Permanent AFib s/p AVN ablation 2004 #Status post dual-chamber pacemaker for pacemaker dependence post AV marce ablation #Background of NSVT under investigation #Status post 25 mm Carbo-Medics mechanical aortic valve prosthesis with Hemashield ascending aorta graft (10-SEP-2007). on warfarin, target INR 2-3 #Status post tricuspid valve repair with 28 mm Carbo-Medics AnnuloFlex band (01-NOV-2014) - No recurrent syncope. Clinically well. - Right heart catheterization 09/07: PAWP trina with nitric oxide - Subtherapeutic INR, bridging with Lovenox until INR 2.0-3.0 - Carotid ultrasound: no significant stenosis - D-dimer 897; CTPE not performed - TTE 09/06/2024: Severely enlarged right ventricular chamber size with severely reduced systolic function, estimated right ventricular systolic pressure 78 mmHg (right atrial pressure of 20 mmHg), severe tricuspid valve regurgitation - No orthostatic hypotension - Appreciate HRS's input Optimize volume status Continue metoprolol succinate as tolerated for intermittent NSVT - Appreciate Pulmonary Hypertension service Optimize volume status Optimize GDMTs - Home medication: Continue metoprolol 25 mg daily, sertraline 100 mg daily Hold home torsemide 40 mg daily, while IV diuresis # Subclinical hypothyroidism - Outpatient follow-up VTE Prophylaxis: Warfarin (INR goal 2-3), currently subtherapeutic, bridging with lovenox Surrogate Decision Maker: Living Situation Before Admission: Home. Discharge Plan (equipment, therapy, and facility): Likely home. Plan discussed with RST CARD 1 Country Sales Manager, Dr. Lo, who was present during diaz portions of the evaluation today. Please page the RST CARD 1 service pager at [phone] with any questions. Deanne Kilpatrick MD (Yui) PGY-1, Preliminary Internal Medicine [facility] Pager [phone] * Domingo Ramsay M.B.B.S. - 09/08/2024 11:11 AM CDT Images from the original note were not included. SUBJECTIVE REFERRAL Cardiology 1 Seen today at bedside. Feels well. RHC procedure yesterday. Had to go through Left IJ due to Right neck venous system seems to be occluded at the junction of RIJ and SVC. OBJECTIVE PHYSICAL EXAM Vitals: 09/08/24 1000 09/08/24 1004 09/08/24 1015 09/08/24 1215 BP: 126/68 126/68 119/58 BP Location: Left arm;Upper Patient Position: Lying Pulse: 72 Resp: 16 24 20 12 Temp: 36.7 ??C TempSrc: Oral SpO2: 96% Weight: 77.9 kg Height: General: Well appearing. No conversational dyspnea. Eyes: Anicteric sclerae. ENT: No oropharyngeal lesions. Vessels: JVP elevated significantly Lymph: No cervical or supraclavicular lymphadenopathy. Heart: 3/6 systolic murmur at LLSB. Lungs: Clear to auscultation bilaterally without wheezes or crackles Abdomen: Soft, nontender. Extremities: No lower extremity edema. Skin: No appreciable rashes or lesions STUDIES Recent Results (from the past 24 hours) Prothrombin Time (PT) Collection Time: 09/07/24 6:59 PM Result Value Prothrombin Time, P 18.6 (H) INR 1.7 Prothrombin Time (PT) Collection Time: 09/08/24 4:33 AM Result Value Prothrombin Time, P 18.8 (H) INR 1.7 CBC without Differential Collection Time: 09/08/24 6:33 AM Result Value Hemoglobin 10.1 (L) Hematocrit 32.0 (L) Erythrocytes 3.32 (L) MCV 96.4 RBC Distrib Width 16.6 (H) Platelet Count 189 Leukocytes 7.0 Basic Metabolic Panel Collection Time: 09/08/24 6:33 AM Result Value Potassium, S 5.1 Sodium, S 134 (L) Chloride, S 102 Bicarbonate, S 22 Anion Gap 10 BUN (Blood Urea Nitrogen), S 28 (H) Creatinine 1.45 (H) Estimated GFR (eGFR) 48 (L) Calcium, Total, S 8.8 Glucose, S 105 Echo: 09/06/2024 Final Impressions 1. Severely enlarged right ventricular chamber size with severely reduced systolic function. Averaged right ventricular free wall longitudinal peak systolic strain is -12% (normal </= -25%). 2. Estimated right ventricular systolic pressure 78 mmHg (right atrial pressure of 20 mmHg). 3. Status post tricuspid valve repair with 28 mm Carbo-Medics AnnuloFlex band (01-NOV-2014). 4. Severe tricuspid valve regurgitation. Likely due to combination of annular dilatation and devicelead impingement. 5. Tricuspid valve diastolic mean Doppler gradient 2 mmHg (heart rate 71 BPM). 6. 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 7. Aortic valve prosthetic leaflet motion not well visualized. Unable to measure mean gradient due to challenging Doppler alignment. 8. Normal left ventricular chamber size. Calculated ejection fraction 63%. 9. Abnormal ventricular septal motion - post-operative without other regional wall motion abnormalities. 10. Severely enlarged inferior vena cava size with no inspiratory collapse. 11. Tiny posterior pericardial effusion. 12. Compared to the report of 04/21/2024 no significant change has occurred. Side by side comparison of images performed. Findings Echo performed at the patient's bedside. Echocardiogram performed per left ventricular function protocol. Last full echocardiogram performed 04/21/2024. LEFT VENTRICLE:Normal left ventricular chamber size. Calculated 2-D linear left ventricular ejection fraction 63%. No dynamic left ventricular outflow tract obstruction at rest or with Valsalva. Abnormal ventricular septal motion - post- operative without other regional wall motion abnormalities. Indeterminate left ventricular filling pressure. RIGHT VENTRICLE:Severely enlarged right ventricular chamber size. Severely reduced right ventricular systolic function. Estimated right ventricular systolic pressure 78 mmHg (right atrial pressure of20 mmHg). Averaged right ventricular free wall longitudinal peak systolic strain is -12% (normal </= -25%). ATRIA:Mildly enlarged left atrial size by visual estimate. Severely enlarged right atrial size by visual estimate. 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 Trivial aortic valve prosthetic regurgitation. No aortic valve periprosthetic regurgitation. Thickened mitral valve. Mildly calcified mitral annulus. Mild mitral valve regurgitation. Pulmonary valve not well visualized. Status post tricuspid valve repair with 28 mmCarbo-Medics AnnuloFlex band (01-NOV-2014). Tricuspid valve diastolic mean Doppler gradient 2 mmHg (heart rate 71 BPM). Severe tricuspid valve regurgitation. OTHER ECHO FINDINGS:Severely enlarged inferior vena cava size with no inspiratory collapse. Device lead (s) identified in right atrium and right ventricle. No intracardiac mass or thrombus, but the left atrial appendage cannot be visualized adequately with transthoracic echo to exclude thrombus in t his location. Tiny posterior pericardial effusion. RHC 09/08/2024 Right heart catheterization: RA 18 with V-wave 22, PA 76/26/44, PWP 16, cardiac output 5.3/2.7, PVR5.3 harvey unit, systemic side 89%, PA sat 46%. Nitric oxide PA 74/24/41, PA WP 22, cardiac output 5.3/2.7 PVR 3.6, systemic side 91, PA sat 48%. Findings indicative of severely elevated RA pressure with V-wave of tricuspid regurgitation, mildly elevated wedge, normal cardiac index moderately elevated PVR. Nitric oxide slightly reduced PA pressure and PVR but some rise in wedge. ASSESSMENT / PLAN # Pulmonary Hypertension, likely group 2 (No RHC yet), RVSP 78\ # Acute on chronic heart failure # NSVT on device interrogation # Permanent atrial fibrillation s/p AV node ablation and subsequent dual-chamber pacemaker placement 2004 # s/p 25 mm Carbo-Medics mechanical aortic valve prosthesis with Hemashield ascending aorta graft 09/10/2007 # Status post tricuspid valve repair with 28 mm Carbo-Medics AnnuloFlex band 11/01/2014 Overall his Pulmonary hypertension is likely in the setting of heart disease. He does have other risk factors for PH such as TIM. He denies any hx of PE and has been on AC with warfarin. His PFTs from 2020 show that he had mild obstructive ventilatory defect with moderately reduced DLCO. Does not have any Hx of Connective tissue disease. The current syncopal episode does seem to be cardiogenic in origin from his right heart failure. Other possibility could be Arrhythmia related vs orthostatic. His PH is likely combined pre and post capillary. 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 Group 2 PH Elevated right sided filling pressures, and mildly elevated wedge pressure. With NO there was increase in pulmonary capillary wedge pressure. This indicates that the pulmonaryvasodilators wont be helpful in his case and might make his symptoms worse. Plan - Given group 2 PH, would recommend optimizing volume status and optimizing GDMT. - There is no indication of pulmomary vasodialator therapy. In fact the NO study during the RHC lead to increase in Wedge pressure. - Consider VQ scan with SPECT CT to rule out CTEPH. (Although less likely) - Follow up in Pulmonary Hypertension Clinic as planned. Thank you for the consult. Do not hesitate to reach out to Pulmonary hypertension team with any questions or concerns. Discussed with Dr Beasley Cosigned by Yara Beasley M.D. at 09/08/2024 9:25 PM CDT * David Avina, DArmando, R.Ph., [facility] - 09/08/2024 10:28 AM CDT Pharmacist Progress Note Reason for admission: Syncope [R55] PMH: Afib s/p AVNA/PPM 2004, hx NSVT, Hx CarboMedics mAVR 2007, hx TV repair 2014, mild/moderate MR/TRr, CAD (CABG?), hx TIA 2015 Medical History[1] OBJECTIVE Neuro: sertraline CV: NSVT- metoprolol XL 25 qd; mAVR- warfarin Neph: Estimated Creatinine Clearance: 41.8 mL/min (A) (by C-G formula based on SCr of 1.45 mg/dL (H)). Baseline unk Endo: TSH 5.1, T3/4 pending PPX: warfarin Warfarin Warfarin Indication: Atrial fibrillation (AF); Aortic valve - Mechanical Target INR: 2 - 3 DOAC Assessment: [facility] AVR Warfarin Administrations (last 168 hours) Date/Time Action Medication Dose 09/07/241928 Given warfarin tablet 10 mg ([place]) 10 mg 09/06/241812 No Dose Today warfarin ([place]) NO Dose Today INR (no units) Date Value Status 09/08/2024 1.7 Final 09/07/2024 1.7 Final 09/07/2024 2.1 Final 09/06/2024 3.1 Final Medication Reconciliation: Held: torsemide Changed: - New: TBD ASSESSMENT / PLAN Syncope without prodrome PPM interrogated without findings (NSVT run noted but not correlated), continues recently decreasedmetoprolol XL 25 mg daily. HRS consulted New dx Pulmonary HTN - outpatient workup Mechanical AVR on warfarin, INR goal 2-3. Home dosing 5 mg MWF and 10 mg all other days. INR supratherapeutic at 1.7, bridging with LMWH. Will provide 10 mg dose tonight again unless discharged. Discharge plan: bridge with LMWH 80 bid, continue home dose (5 mg MWF, 10 mg AOD), plan for INR check Thursday. David Avina, PharmArmandoD., R.Ph., BCPS [1] Past Medical History: Diagnosis Date Atrial Fibrillation Unspecified (HCC) 2004 Blood Transfusion No Diagnosis 2006 Cataract 2011 Chronic Obstructive Pulmonary Disease (HCC) Concussion Loss Of Consciousness Unspecified Duration Initial Coronary Artery Disease (Unspecified) Depressive Disorder 2006 Gallbladder Disorder Heart Failure NOS Other Injury Of Unspecified Body Region Pneumonia Polyp Colon Renal Disease Skin Cancer (Primary) NOS Sleep Apnea Transient Ischemic Attack 2016 * Marquita Lo M.D. - 09/08/2024 10:13 AM CDT Think with Mr. Gross and his family today. He has a uncomplicated right side catheterization with nitric oxide yesterday consistent with severe pulmonary hypertension there was mild reduction in hispressure with nitric oxide supplementation. We will follow-up with the Pulmonary hypertension consult for possible outpatient consultation and treatment. It is still feasible that his syncopal episode is secondary to his pulmonary hypertension however we can not verify its. He will probably will be able to be dismissed today * Marquita Lo M.D. - 09/07/2024 10:32 AM CDT Visited with Mr. Gross he is doing well no episode dizziness lightheadedness syncope or dyspnea. His echo showed severely enlarged right ventricle chamber with reduced systolic function estimated right ventricular systolic pressure of 78 mm Hg. We will awaiting Pulmonary hypertension consultation if they would like to proceed with right side catheterization with drug challenge today or to see him as an outpatient. * David Avina Pharm.D., R.Ph., BCPS - 09/07/2024 8:04 AM CDT Pharmacist Progress Note Reason for admission: Syncope [R55] PMH: Afib s/p AVNA/PPM 2004, hx NSVT, Hx CarboMedics mAVR 2007, hx TV repair 2014, mild/moderate MR/TRr, CAD (CABG?), hx TIA 2015 Medical History[1] OBJECTIVE Neuro: sertraline CV: NSVT- metoprolol XL 25 qd; mAVR- warfarin Neph: Estimated Creatinine Clearance: 39.7 mL/min (A) (by C-G formula based on SCr of 1.54 mg/dL (H)). Baseline unk Endo: TSH 5.1, T3/4 pending PPX: warfarin Warfarin Warfarin Indication: Atrial fibrillation (AF); Aortic valve - Mechanical Target INR: 2 - 3 DOAC Assessment: [facility] AVR Warfarin Administrations (last 168 hours) Date/Time Action Medication 09/06/24 181 No Dose Today warfarin ([place]) NO Dose Today INR (no units) Date Value Status 09/07/2024 2.1 Final 09/06/2024 3.1 Final Medication Reconciliation: Held: torsemide Changed: - New: TBD ASSESSMENT / PLAN Syncope without prodrome PPM interrogated without findings (NSVT run noted but not correlated), continues recently decreasedmetoprolol XL 25 mg daily. HRS consulted TTE with severe RV enlargement and reduced function, overloaded IVC - Pulm HTN consulted. RHC today Mechanical AVR on warfarin, INR goal 2-3. Home dosing 5 mg MWF and 10 mg all other days. INR supratherapeutic 3.1 on admission now 2.1 iso holding for RHC. Will provide 10 mg dose tonight. Planning to recheck INR at 1700, if <2 will require bridging David Avina PharmChidi., R.Ph., BCPS [1] Past Medical History: Diagnosis Date Atrial Fibrillation Unspecified (HCC) 2005 Blood Transfusion No Diagnosis 2006 Cataract 2011 Chronic Obstructive Pulmonary Disease (HCC) Concussion Loss Of Consciousness Unspecified Duration Initial Coronary Artery Disease (Unspecified) Depressive Disorder 2006 Gallbladder Disorder Heart Failure NOS Other Injury Of Unspecified Body Region Pneumonia Polyp Colon Renal Disease Skin Cancer (Primary) NOS Sleep Apnea Transient Ischemic Attack 2016 * Anju Chen M.D. - 09/07/2024 7:24 AM CDT HRS progress note The patient came in with the 1st episode of syncopal episode in the setting of known intermittent NSVT from cardiac device interrogation without clear correlating symptoms. There was concern for arrhythmia-related syncope. HRS was consulted for further evaluation. Additional information: prior to this admission, he reports having positional lightheadedness when he changes position from sitting to standing but denies any resting lightheadedness. Denies any lightheadedness that's associated with lightheadedness except when he lies down on his left side. The main issue is the shortness of breath that has been progressing over the past year. He could walk 5 miles a year ago but now he can barely make 2 blocks. Denies any resting/exertional chest pain. Appetite is ok but he doesn't eat much. Denies any abdominal pain/fullness. Denies any constitutional symptoms. 09/07/2024: Feeling well today. Denies any lightheadedness. Vitally stable. No evidence of orthostatic hypotension. O2 slightly downtrending 90s-94% on RA. Exams: JVP >15 with prominent V waves; 2/6 systolic murmur at LUPSB, and at least 3/6 holosystolic murmur, prominent at LLPSB; no LE edema. Telemetry: V-paced at 80, +intermittent NSVT this morning (rate 100-150) Labs with stable kidney function and electrolytes. Elevated ALP, TB. TTE 09/06/2024: normal LVEF 63%, increase size and reduced function of RV, RVSP 78 (RAP 20), severe TR, mild MR, mildly enlarged LA size, severely enlarged RA size. # Acute decompensated heart failure, predominantly right side # First unwitnessed syncopal episode # Intermittent NSVT from device interrogation, rate 160-190, low burden # Severe pulmonary hypertension, RVSP 72 from TTE 04/21/2024 # permanent atrial fibrillation s/p AV node ablation and subsequent dual-chamber pacemaker placement 2004 # Severe bicuspid aortic valve stenosis, enlarged ascending aorta - s/p 25 mm Carbo-Medics mechanical aortic valve prosthesis with Hemashield ascending aorta graft 09/10/2007 - on warfarin, target INR 2-3 # Status post tricuspid valve repair with 28 mm Carbo-Medics AnnuloFlex band 11/01/2014 - currently severe TR, likely from annular dilatation and device lead impingement. # Mild COPD # Ex-smoker, quit 20 years ago # History of TIA Given the current clinical presentation, we cannot entirely rule out arrhythmia- induced syncope. However, absence of obvious correlating symptoms from prior Holter monitoring and device monitoring along with atypical symptoms of positional lightheadedness make it less likely. His presenting symptoms, labs findings, the most recent TTE are consistent with acute decompensatedheart failure, predominantly right-sided in the setting of severe pulmonary hypertension. It is possible that this is contributing to intermittent NSVT findings. Recommend diuresis until appropriate volume status is achieved. Might not be able to aim for a normal JVP in the setting of severe TR. Can consider working up the cause of his pulmonary hypertension as well. For intermittent NSVT, can continue with metoprolol succinate as tolerated. No changes in management is needed at this time from HRS standpoint. We will sign off. [place] [phone] with any questions. Staffed with Dr. Thornton. Anju Chen MD General [email or web address] java developer * Deanne Kilpatrick M.D., M.S. - 09/07/2024 6:28 AM CDT RST CARD 1 PROGRESS NOTE SUBJECTIVE HISTORY OF PRESENT ILLNESS Mr. Gross is a 83 y.o. male who presented with first unwitnessed syncopal episode. history of mechanical aortic valve on warfarin, afib s/p AVN ablation 2004 with pacemaker placement, and non-sustained VT. INTERVAL EVENTS: - TTE revealed RVSP of 78. Pacemaker interrogation did not revealed associated arrhythmia at the time of the event. No orthostatic hypotension detected. - Carotid ultrasound did not reveal significant stenosis. - D-dimer mildly elevated - NPO after midnight and warfarin was held last night (INR on admission 3.1, goal 2-3) OBJECTIVE PHYSICAL EXAMINATION General: Alert, interactive, not acutely ill. Skin: No rashes or lesions. Eyes: Pupils equal and round. Sclera anicteric. ENT: Hearing grossly intact. Dentition intact. No oral or pharyngeal erythema or lesions noted. Lungs: Clear to auscultation. No wheezes or crackles. Heart: Irregular irregular. Mechanical click in the aortic position with associated systolic flow murmur No lower extremity edema. JVP not elevated. Abdomen: Soft, flat, bowel sounds normoactive, nontender, nondistended, no palpable masses or organomegaly. Neuro: Gross strength 5/5 in all extremities. Mental: Mood and affect congruent. Labs: INR 2.1, TSH 5.1 ASSESSMENT / PLAN Mr. Gross is a 83 y.o. male hospitalized on RST CARD 1 for syncope query from pulmonary hypertension. Work up for other causes of syncope including arrhythmia, carotid artery stenosis, orthostatic hypotension were negative so far. D-dimer was slightly elevated, but he had CKD and does not have anynew oxygen requirement or tachycardia suggestive of pulmonary embolism, so decision was made to forego CTPE. TTE yesterday demonstrated RV dilatation and elevated RVSP at 78 mmHg. We will engage Pulmonary Hypertension team for consideration of right heart catheterization. Of note, patient is clinically well, and this could be considered as an elective procedure as well. From metabolic screening, he TSH is slightly elevated. We will obtain FT4 and T3. Plan Pulmonary hypertension consult. 2. T3 and free T4. # Syncopal episode, query secondary to pulmonary hypertension and right-sided heart failure # Severe tricuspid regurgitation # Acute decompensated right-sided heart failure, likely secondary to severe TR # NSVT, query secondary to acute right-sided heart failure #Permanent AFib s/p AVN ablation 2004 #Status post dual-chamber pacemaker for pacemaker dependence post AV marce ablation #Background of NSVT under investigation #Status post 25 mm Carbo-Medics mechanical aortic valve prosthesis with Hemashield ascending aorta graft (10-SEP-2007). on warfarin, target INR 2-3 #Status post tricuspid valve repair with 28 mm Carbo-Medics AnnuloFlex band (01-NOV-2014) - No recurrent syncope. Clinically well. - NPO for possible right heart catheterization - Warfarin held yesterday. INR this morning 2.1 - Carotid ultrasound: no significant stenosis - D-dimer 897; CTPE not performed - TTE 09/06/2024: Severely enlarged right ventricular chamber size with severely reduced systolic function, estimated right ventricular systolic pressure 78 mmHg (right atrial pressure of 20 mmHg), severe tricuspid valve regurgitation - No orthostatic hypotension - Appreciate HRS's input Optimize volume status Continue metoprolol succinate as tolerated for intermittent NSVT - Consult pulmonary hypertension service - Home medication: Continue metoprolol 25 mg daily, sertraline 100 mg daily Hold home torsemide 40 mg daily (patient currently NPO, plan resume tomorrow) # Elevated TSH - Obtain FT4 and T3 VTE Prophylaxis: Therapeutic warfarin (INR goal 2-3). Surrogate Decision Maker: Living Situation Before Admission: Home. Discharge Plan (equipment, therapy, and facility): Likely home. Plan discussed with RST CARD 1 Country Sales Manager, Dr. Lo, who was present during diaz portions of the evaluation today. Please page the RST CARD 1 service pager at [phone] with any questions. Deanne Kilpatrick MD (Yui) PGY-1, Preliminary Internal Medicine [facility] Pager [phone] * Tara Garcia ROrlando, C.W.O.C.N. - 09/06/2024 2:55 PM CDT [facility] Wound RN consulted to assess Sam Gross skin alterations. Wound assessment, pain, and Jaspreet score noted in the flowsheet. The patient verbally consented to photography of the affected area for clinical trending purposes. Images were taken and are available in [employer]. History: Per chart review, Sam Gross is a 83 y.o. male admitted with concerns of possible cardiac syncope; patient had an unwitnessed syncopal episode with head injury while walking to the kitchen after eating his dinner on the sofa. PMH: # Permanent AFib s/p AVN ablation with subsequent dual-chamber pacemaker placement 2004; RV pacing 99% # Background of asymptomatic NSVT under investigation # Status post 25 mm Carbo-Medics mechanical aortic valve prosthesis with Hemashield ascending aortagraft (10-SEP-2007), on warfarin, target INR 2-3 # Status post tricuspid valve repair with 28 mm Carbo-Medics AnnuloFlex band (01-NOV-2014) # History of TIA # Depression # Ex-smoker, quit 20 years ago Assessment: Patient was assessed in bed after transferring from the chair (stand by assist); patient turned self independently in bed. Patient sustained multiple superficial abrasions and skin tears during his fall prior to admission.Patient's skin is overall thin, dry, and fragile; would benefit from routine moisturization after bathing. For the elbow, pretibial, and ankle tears, recommend use of a silicone contact layer, hydrogel, andlight foam dressing to promote a moist wound healing environment and preserve the residual skin flaps. 09/06/24 1415 Wound 09/06/24 Abrasion Thigh Right;Anterior Date First Assessed/Time First Assessed: 09/06/24 0600 Present on Original Admission: Yes Primary Wound Type: Abrasion Location: Thigh Wound Location Orientation: Right;Anterior *Shape Irregular (diffuse) *Tunneling None *Signs of Infection None *Wound Bed Epithelium Tissue Exposed None Odor None *Exudate Amount None Lakia-wound Assessment Dry;Fragile;Flakes;[place] Treatments Cleansed Periwound Treatment Cleansed (Comment) Wound Cleansed with Wound cleanser *Primary Dressing Other (Comment) (Plain Petrolatum) *Primary Dressing Frequency of Change Daily & PRN Primary Dressing Changed New Primary Dressing Status Intact;Clean *Secondary Dressing Open to air Changed by Wound missile and missile checkout technician Ongoing management Nursing;Patient/caregiver Wound 09/06/24 Skin Tear Skin tear Type 2 (partial flap loss) Pretibial Left;Lateral Date First Assessed/Time First Assessed: 09/06/24 0600 Present on Original Admission: Yes Primary Wound Type: Skin Tear Skin Tear Type: Skin tear Type 2 (partial flap loss) Location: Pretibial Wound Location Orientation: Left;Lateral Date Wound Image Taken 09/06/24 *Shape Round / oval (x2 tears) *Tunneling None *Signs of Infection None *Wound Bed Partial thickness;Red;Purple Tissue Exposed None Odor None *Exudate Amount Moderate Drainage Description Serosanguineous (partially dried) Lakia-wound Assessment Fragile;Ecchymotic;Blistered Treatments Cleansed Periwound Treatment Cleansed (Comment) Wound Cleansed with Wound cleanser *Primary Dressing Silicone dressing (Mepitel One) *Primary Dressing Frequency of Change Weekly & PRN Primary Dressing Changed New Primary Dressing Status Clean;Dry;Intact *Secondary Dressing Hydrogel;Foam (Mepilex Lite) *Secondary Dressing Frequency of Change Daily & PRN Secondary Dressing Changed New Secondary Dressing Status Clean;Dry;Intact Changed by Wound missile and missile checkout technician Ongoing management Nursing Wound 09/06/24 Skin Tear Skin tear Type 2 (partial flap loss) Ankle Right;Lateral;Upper Date First Assessed/Time First Assessed: 09/06/24 0600 Present on Original Admission: Yes Primary Wound Type: Skin Tear Skin Tear Type: Skin tear Type 2 (partial flap loss) Location: Ankle Wound Location Orientation: Right;Lateral;Upper Date Wound Image Taken 09/06/24 *Shape Round / oval *Tunneling None *Signs of Infection None *Wound Bed Partial thickness;Red Tissue Exposed None Odor None *Exudate Amount Small Drainage Description Sanguineous Lakia-wound Assessment Fragile;Dry Treatments Cleansed Periwound Treatment Cleansed (Comment) Wound Cleansed with Wound cleanser *Primary Dressing Hydrogel *Primary Dressing Frequency of Change Daily & PRN Primary Dressing Changed New Primary Dressing Status Clean;Intact *Secondary Dressing Foam (Mepilex Lite) *Secondary Dressing Frequency of Change Daily & PRN Secondary Dressing Changed New Secondary Dressing Status Clean;Dry;Intact Changed by Wound missile and missile checkout technician Ongoing management Nursing Wound 09/06/24 Skin Tear Skin tear Type 3 (total flap loss) Elbow Left;Posterior;Lateral Date First Assessed/Time First Assessed: 09/06/24 0600 Present on Original Admission: Yes Primary Wound Type: Skin Tear Skin Tear Type: Skin tear Type 3 (total flap loss) Location: Elbow Wound Location Orientation: Left;Posterior;Lateral Date Wound Image Taken 09/06/24 *Shape Round / oval *Wound Length (cm) 3.8 cm *Wound Width (cm) 2.9 cm *Wound Depth (cm) 0 cm Wound Surface Area 11.02 cm^2 *Tunneling None *Signs of Infection None *Wound Bed Partial thickness;Red Tissue Exposed None Odor None *Exudate Amount Moderate Drainage Description Sanguineous Lakia-wound Assessment Fragile;Ecchymotic Treatments Cleansed Periwound Treatment Cleansed (Comment) Wound Cleansed with Wound cleanser *Primary Dressing Silicone dressing (Mepitel One) *Primary Dressing Frequency of Change Weekly & PRN Primary Dressing Changed New Primary Dressing Status Clean;Dry;Intact *Secondary Dressing Hydrogel;Foam (Mepilex Lite) *Secondary Dressing Frequency of Change Daily & PRN Secondary Dressing Changed New Secondary Dressing Status Clean;Dry;Intact Changed by Wound missile and missile checkout technician Ongoing management Nursing Wound 09/06/24 Abrasion Hand Left;Dorsum Date First Assessed/Time First Assessed: 09/06/24 06 Present on Original Admission: Yes Primary Wound Type: Abrasion Location: Hand Wound Location Orientation: Left;Dorsum *Shape Irregular *Tunneling None *Signs of Infection None *Wound Bed Red (scabbed) Tissue Exposed None Odor None *Exudate Amount Scant (dried) Drainage Description Sanguineous (scabbed) Lakia-wound Assessment Fragile;Ecchymotic Treatments Cleansed Periwound Treatment Cleansed (Comment) Wound Cleansed with Wound cleanser *Primary Dressing Other (Comment) (Plain Petrolatum) *Primary Dressing Frequency of Change Daily & PRN Primary Dressing Changed New Primary Dressing Status Clean;Intact *Secondary Dressing Open to air Changed by Wound missile and missile checkout technician Ongoing management Nursing Wound 09/06/24 Hematoma Head (Comment) Left;Upper Date First Assessed/Time First Assessed: 09/06/24 06 Present on Original Admission: Yes Primary Wound Type: Hematoma Location: Head (Comment) Wound Location Orientation: Left;Upper *Shape Irregular (diffuse) *Tunneling None *Signs of Infection None *Wound Bed Closed Tissue Exposed None Odor None *Exudate Amount None Lakia-wound Assessment Fragile;Ecchymotic;Intact Treatments Cleansed Periwound Treatment Cleansed (Comment) Wound Cleansed with Wound cleanser *Primary Dressing Open to air Ongoing management Patient/caregiver;Nursing Head to toe skin assessment completed and no other concerns DRESSING RECOMMENDATIONS: #1 Abrasion; Right Anterior Thigh #2 Abrasion; Left Dorsal Hand Daily & PRN: -Cleanse the wound with Vashe wound cleanser and 4x4 gauze. Pat dry. -Apply a light layer of Vaseline directly to the wound, ensuring it fills/covers the entire wound bed. -Leave open to air. #3 Skin Tear, Type 3; Left Posterior Lateral Elbow #4 Skin Tear, Type 2; Right Lateral Upper Ankle #5 Skin Tear, Type 2; Left Lateral Pretibial Area -Cleanse the wound and periwound skin with Vashe wound cleanser and 4x4 gauze. Pat dry. -Place a Mepitel?? One dressing over the wound bed. Change weekly and PRN. -Apply Hydrogel once daily over the Mepitel?? One dressing and cover with a Mepilex Lite, secured with Kerlix or roll gauze as needed. Change the secondary dressing daily and PRN. Recommended interventions for pressure redistribution and shear reduction: Offload heels on pillows at all times when in bed. Full 30 degree turns side to side every 2 hours with supine positioning only for meals. Reposition at least every hour while in the chair. Reposition medical devices per policy. Assess and pad the skin under and surrounding the medical devices with a prophylactic foam dressing. Keep the HOB below 30 degrees except for meals unless medically contraindicated. Apply a prophylactic sacral Mepilex?? border dressing to cover the coccyx/sacral area. Ensure the dressing is in full contact with the skin to prevent moisture- related skin breakdown. Lift twice daily to assess when used for prevention. Change every 3 days and PRN. Recommended interventions for moisture control: Utilize the breathable incontinence underpads while in bed. Adult briefs should only be worn while ambulating or in the chair. Cleanse with foaming cleanser or wipes after each incontinence episode and for routine hygiene cares. Consult recommendations: NA Education: Discussed the plan of care with the patient and nursing. They agree to the plan. The WOC RN will sign-off. Please place a wound care consult for any new concerns. Electronically signed by: Tara Garcia R.N., C.W.O.C.N. 09/06/24 2:58 PM CDT * Miguelangel Thornton M.B.B.S. - 09/06/2024 2:30 PM CDT ASSESSMENT / PLAN Mr. Gross is doing well. No recurrent syncope noted. We reviewed his telemetry. He is pacing consistently. I also reviewed his echo which showed preserved ejection fraction. However, severe TR, likely due to combination of annular dilatation and lead impingement. His IVC is also dilated without any collapse. His orthostatics were negative. In this setting, would suggest judicious diuretics to treat his shortness of breath which has been worsened of late. Otherwise, we will continue with supportive care. All his questions were answered. Morena Agudelo CT CT Job ID: [id number] * Miguelangel Thornton M.B.B.S. - 09/06/2024 11:31 AM CDT SUBJECTIVE HISTORY OF PRESENT ILLNESS Mr. Gross is an 83-year-old gentleman with history of dual-chamber pacemaker implanted in 2014, aortic valve replacement, tricuspid valve annuloplasty, atrial fibrillation. He has had several evaluations performed recently for presyncopal events. He was in his usual state of health, was in his kitchen yesterday, subsequently he apparently lost consciousness and hit his head. Device interrogationperformed which showed transient nonsustained VT. However, the burden is quite minimal to explain the recent presyncopal event. His prior last echocardiogram in April 2024 had shown a preserved ejection fraction; however, a severely enlarged RV size and reduced RV function in the setting of severe tricuspid regurgitation. ASSESSMENT / PLAN At this point, we will plan to: 1. Check orthostatics. 2. Syncope does not appear to be arrhythmogenic at this point. 3. We will check an echo to look at his right-sided pressures. All his questions were answered. Radha Agudelo. CT CT Job ID: [id number] * David Avina, Pharm.DArmando, R.Ph., [facility] - 09/06/2024 7:59 AM CDT Pharmacist Progress Note Reason for admission: Syncope [R55] PMH: Afib s/p AVNA/PPM 2004, hx NSVT, Hx CarboMedics mAVR 2007, hx TV repair 2014, mild/moderate MR/TRr, CAD (CABG?), hx TIA 2015 Medical History[1] OBJECTIVE Neuro: sertraline CV: NSVT- metoprolol XL 25 qd; mAVR- warfarin Neph: Estimated Creatinine Clearance: 34.6 mL/min (A) (by C-G formula based on SCr of 1.77 mg/dL (H)). Baseline unk PPX: warfarin Warfarin Warfarin Indication: Atrial fibrillation (AF); Aortic valve - Mechanical Target INR: 2 - 3 DOAC Assessment: [facility] AVR Warfarin Administrations (last 168 hours) None INR (no units) Date Value Status 09/06/2024 3.1 Final Medication Reconciliation: Held: - Changed: - New: TBD ASSESSMENT / PLAN Syncope without prodrome PPM interrogated without findings (NSVT run noted but not correlated), continues recently decreasedmetoprolol XL 25 mg daily. HRS consulted Orthostatic vitals, echo, carotid US, d-dime for possible PE Mechanical AVR on warfarin, INR goal 2-3. Home dosing 5 mg MWF and 10 mg all other days. INR supratherapeutic 3.1 on admission, if needing RHC (goal INR of 2.5 or less) - holding dose tonight. If no RHC needed recommend 50% of home dose (5 mg) tonight. David Avina Pharm.D., R.Ph., BCPS [1] Past Medical History: Diagnosis Date Atrial Fibrillation Unspecified (HCC) 2005 Blood Transfusion No Diagnosis 2006 Cataract 2011 Chronic Obstructive Pulmonary Disease (HCC) Concussion Loss Of Consciousness Unspecified Duration Initial Coronary Artery Disease (Unspecified) Depressive Disorder 2006 Gallbladder Disorder Heart Failure NOS Other Injury Of Unspecified Body Region Pneumonia Polyp Colon Renal Disease Skin Cancer (Primary) NOS Sleep Apnea Transient Ischemic Attack 2015 * Federico Sanchez M.D. - 09/06/2024 4:22 AM CDT Images from the original note were not included. EP Fellow note: DEVICE INTERROGATION Device type: dual chamber pacemaker Last interrogation: remote 08.04.2024 Presenting rhythm: AF. RUG WEAVER Underlying rhythm: RUG WEAVER at 30 bpm Pacing mode: VVIR lower rate at 70 Lead parameters: R wave 7.7, threshold 1.9 @ 0.4 ms, impedance 1227 Battery life: 7 years Events: 15 second run of VT at 10:30 yesterday Summary: no correlative episodes detected Patient presents with syncopal episode at 8:30 PM. No correlative episodes detected. He was puttinghis dishes away when episode occurred. He lost consciousness for a few seconds ( witnessed episode). No prodromal episodes. He was taken to [place] ER where he had some NSVT at 1030 which is noted by device. I spoke with ER team and relayed information. They are continuing ongoing testing and plan to monitor patient in ER and have cardiology evaluate in AM. He has other episodes of lightheadedness when he rolls to his left but has prodromal symptoms prior and usually feels lightheaded. In that sense, this episode was atypical. Would consider other causes including VVS and consider tilttable testing. Federico Sanchez MD Electrophysiology Fellow documented in this encounter H&P Notes * Rosey Adam M.D., M.S. - 09/06/2024 5:45 AM CDT Supervisory H&P - CARDS 1 Service I saw and evaluated the patient with the [facility] resident, participating in the diaz portions of theservice including confirmation of the relevant history and physical examination findings, review ofthe results of pertinent diagnostic testing, and medical decision making. I agree with the plan of care as outlined in the resident's note; please see their note for further details. HPI Sam Gross is a 83 y.o. male presenting after a syncopal episode at home. Relevant Past medical history includes: atrial fibrillation status post AV node ablation and dual-chamber permanent pacemaker implantation 2004 History of aortic valve replacement with carbomedics mechanical aortic valve in 2007 History of redo sternotomy with a tricuspid valve repair in 2014 [id number] mitral valve regurgitation [id number] tricuspid valve regurgitation Briefly, he had just eaten dinner, stood up from the dinner table and was caring his plate to the kitchen when he lost consciousness and awoke on the floor. He does not recall falling, first memory is of his head hitting the floor. His heard him fall and came to his attention. Per patient, shedid not comment specifically on his appearance aside from the fact that he ???looked blue (need tocall for collateral). No residual deficits, who was able to stand up, walk, talk after the event. No postictal symptoms. No prodromal symptoms. No prior syncopal episodes. In May, pacemaker interrogation revealed short runs of SVT with associated palpitations and dyspnea. His beta-carolina was uptitrated from metoprolol tartrate 25 mg to metoprolol succinate 50 mg daily. Over the past month, he reports intermittent dyspnea on exertion (walking 1 block or 1 flight of stairs) and intermittent palpitations. No chest pain. Last TTE April 2024: Final Impressions 1. Severely enlarged right ventricular chamber size with severely reduced systolic function. Estimated right ventricular systolic pressure 72 mmHg. 2. Averaged right ventricular free wall longitudinal peak systolic strain is - 15% (normal </= -25%). 3. Status post tricuspid valve repair with 28 mm Carbo-Medics AnnuloFlex band (01-NOV-2014). 4. Severe tricuspid valve regurgitation. Mechanism: Interference with leaflet closure by the devicelead and tethering of the septal leaflet. Diastolic mean Doppler gradient 2 mmHg (heart rate 70 BPM). 5. Normal left ventricular chamber size , no regional wall motion abnormalities. Calculated ejection fraction 59%. 6. 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 7. Aortic valve prosthesis systolic mean Doppler gradient 7 mmHg Trivial prosthetic aortic valve regurgitation. 8. Severely enlarged inferior vena cava size with no inspiratory collapse. 9. No pericardial effusion. 10. Compared to the report of 10/18/2021 the following changes have occurred: The degree of tricuspid valve regurgitation has increased and the estimated right ventricular systolic pressure is higher. Side by side comparison of images performed. He had a cardiac catheterization in October 2014 and outside hospital which showed only mild coronary atherosclerosis. CORONARY SUMMARY Coronary artery dominance is right. Normal left main coronary artery. The middle left anterior descending artery is 20% obstructed by a single discrete lesion. Distal segment is normal size, not diseased. The distal circumflex is 30% obstructed by multiple discrete lesions. Distal segment is normal size, diseased. The middle right coronary artery is 20% obstructed by a tubular lesion. Distal segment is normal size, not diseased. Presented to the [place] ED. pacemaker interrogation revealed a 12nd run of VT yesterday morning, but no episodes to correlate with a syncopal event. Troponins flat at 46/48. ECG nonischemic. ED recommended admission for further syncopal workup. ASSESSMENT & PLAN Sam Gross is a 83 y.o. male presenting after a syncopal episode at home. Given lack of prodromal episode, postictal state, there is meaningful concern for cardiac syncope, particularly coupled with his recent dyspnea on exertion and intermittent palpitations. We will obtain a CT triple phase for evaluation of his coronary arteries and repeat an echocardiogram, particularly for evaluation of his cardiac valves. We will contact today for further history. Please see the PGY1 resident's note for additional details of assessment and plan. Rosey Adam MD, MS-HSM PGY 3 Department of Internal Medicine Pager #[phone] [facility], [place], [place] * Magdalena Sandoval M.B., B.Chir. - 09/06/2024 5:01 AM CDT Images from the original note were not included. RST CARD 1 Admission Note SUBJECTIVE CHIEF COMPLAINT/REASON FOR VISIT Syncopal episode HISTORY OF PRESENT ILLNESS Mr. Sam Gross is a 83 y.o. male who presents with syncopal episode x1. Medical comorbidities notable for: Permanent AFib AVN ablation 2004 Status post dual-chamber pacemaker for pacemaker dependence post AV marce ablation Background of NSVT under investigation Status post 25 mm Carbo-Medics mechanical aortic valve prosthesis with Hemashield ascending aorta graft (10-SEP-2007). on warfarin, target INR 2-3 Status post tricuspid valve repair with 28 mm Carbo-Medics AnnuloFlex band (01-NOV-2014) History of TIA Depression Ex-smoker, quit 20 years ago Per patient, he was having dinner with his . Recalls standing up from the dinner table and carrying the plate on a tray to the kitchen. He then recalls collapsing to the floor and hitting his head against the floor. The next thing he remembers is waking up. Fall was unwitnessed but shortly after the for his heard a thump and attended to him. He denied any presyncopal symptoms prior to the event. He was told by his that he appeared blue. No postictal symptoms. Consciousness quickly returned to baseline and the patient was able to get himself up off the floor. No tongue biting, no incontinence. Denies any previous syncopal episode. Denies orthostatic symptoms prior to this. Does endorse a 1 month history of worsening exertional dyspnea. Usually brought on by walking more than1 block. Also dyspnea with walking up 1 flight of stairs. No exertional chest pain. Never had a heart attack. He was brought in by the ambulance to [facility]. There, he underwent CT head and CT cervical imaging which per report were negative for any acute abnormality. He had no traumatic findings, solely asmall bruise on his head. ED course: Vitals: Afebrile, heart rate 70, her BP 130/60, not tachypneic, sats 97% on room air Asymptomatic on arrival to ED EKG: Ventricular paced rhythm, no discordant changes Telemetry showed a 15 sec run of VT in ED during which the patient experienced palpiations ''heart racing in my chest' EP review: DEVICE INTERROGATION Device type: dual chamber pacemaker Last interrogation: remote 08.04.2024 Presenting rhythm: AF. RUG WEAVER Underlying rhythm: RUG WEAVER at 30 bpm Pacing mode: VVIR lower rate at 70 Lead parameters: R wave 7.7, threshold 1.9 @ 0.4 ms, impedance 1227 Battery life: 7 years Events: 15 second run of VT at 10:30 yesterday Summary: no correlative episodes detected Labs: CBC: Hb 10, no leukocytosis Coag: INR 3.1 BNP: Electrolytes within normal limits, creatinine 1.7 (at baseline) Troponins: 46 --> [address] Nicole note in May this year, sustained VT is known for him. He was started on metoprolol to suppress an NSVT with a recent uptitration in May. Following that, the patient felt more fatigued and lightheaded. Contacted his provider 3 weeks ago who agreed to down titrate metoprolol to 25 mg daily. Review of notes shows that his provider was trying to relate his symptoms with runs of NSVT recorded on his pacemaker but these did not seem to correlate. Baseline Functional Status and Mobility: Independently mobile Previous cardiac workup: TTE April 2024: 1. Severely enlarged right ventricular chamber size with severely reduced systolic function. Estimated right ventricular systolic pressure 72 mmHg. 2. Averaged right ventricular free wall longitudinal peak systolic strain is - 15% (normal </= -25%). 3. Status post tricuspid valve repair with 28 mm Carbo-Medics AnnuloFlex band (01-NOV-2014). 4. Severe tricuspid valve regurgitation. Mechanism: Interference with leaflet closure by the devicelead and tethering of the septal leaflet. Diastolic mean Doppler gradient 2 mmHg (heart rate 70 BPM). 5. Normal left ventricular chamber size , no regional wall motion abnormalities. Calculated ejection fraction 59%. 6. 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 7. Aortic valve prosthesis systolic mean Doppler gradient 7 mmHg Trivial prosthetic aortic valve regurgitation. 8. Severely enlarged inferior vena cava size with no inspiratory collapse. 9. No pericardial effusion. 10. Compared to the report of 10/18/2021 the following changes have occurred: The degree of tricuspid valve regurgitation has increased and the estimated right ventricular systolic pressure is higher. Side by side comparison of images performed. Cardiac cath 2015: CORONARY SUMMARY Coronary artery dominance is right. Normal left main coronary artery. The middle left anterior descending artery is 20% obstructed by a single discrete lesion. Distal segment is normal size, not diseased. The distal circumflex is 30% obstructed by multiple discrete lesions. Distal segment is normal size, diseased. The middle right coronary artery is 20% obstructed by a tubular lesion. Distal segment is normal size, not diseased. OBJECTIVE PHYSICAL EXAMINATION General: Alert, interactive, not acutely ill. Skin: No rashes or lesions. Eyes: Pupils equal and round. Sclera anicteric. ENT: Hearing grossly intact. Dentition intact. No oral or pharyngeal erythema or lesions noted. Lungs: Clear to auscultation. No wheezes or crackles. Heart: Irregular irregular. Mechanical click in the aortic position with associated systolic flow murmur No lower extremity edema. JVP not elevated. Abdomen: Soft, flat, bowel sounds normoactive, nontender, nondistended, no palpable masses or organomegaly. Neuro: Gross strength 5/5 in all extremities. Mental: Mood and affect congruent. Alert and oriented. Attention intact. No evidence of disorganized thinking. Reliable history certified caregiver. ASSESSMENT / PLAN Mr. Gross is hospitalized on [facility] C[facility] 1 for evaluation and management of suspected cardiac syncopeand runs of NSVT. He has a past medical history as stated above. He sustained 1 syncopal episode without a prodrome, with no impairment in the his consciousness and immediate return to baseline. No history of epilepsy or orthostasis. There has been concern for NSVT as a potential culprit to his fall. He has been under investigation for runs of symptomatic NSVT associated with palpitations with his outpatient provider. Interestingly, the patient was assessed by the EP service in the emergency department and it appeared that his syncopal event did not correlate with a single 15 seconds NSVT episode otherwise recorded on his pacemaker. Given his demographics and extensive cardiac history, I amalso concerned about a cardiac origin of the syncopal event. His EKG shows complete capture and no ischemic changes. His troponins were elevated but adynamic and probably appropriate in the context of his renal impairment. He is pacemaker dependent and has had a ppm inserted more than 20 years ago but he tells me that since then he did undergo lead replacement. Additionally, his pacemaker check appeared appropriate. He may benefit from a repeat TTE to look for a structural etiology of his symptoms and assess valvular function. He did endorse a history of progressive exertional dyspnea so an ischemic culprit is possible. However, the more recent cardiac catheterization from 2014 was not in keeping with obstructive coronary artery disease. CT coronary angiography may be helpful in identifying any culprit lesions. # Syncopal episode ?cardiac syncope # History NSVT, on metoprolol and under investigation with Cardiology #Permanent AFib s/p AVN ablation 2004 #Status post dual-chamber pacemaker for pacemaker dependence post AV marce ablation #Background of NSVT under investigation #Status post 25 mm Carbo-Medics mechanical aortic valve prosthesis with Hemashield ascending aorta graft (10-SEP-2007). on warfarin, target INR 2-3 #Status post tricuspid valve repair with 28 mm Carbo-Medics AnnuloFlex band (01-NOV-2014) Orthostatic vitals Collateral from Repeat TTE to look for any structural changes and assess the aortic prosthesis CT coronary - may obviate the need for invasive coronary angiography Consider autonomic Clinic referral if above negative Consider longer period of monitoring with a 30 day Holter to assess the burden of nonsustained V-tach Consider HRS consult Continue S[employer] metoprolol 25 mg daily (per patient) Continue warfarin - day may decide to transitioned to IV heparin if procedure is warranted Monitor INR daily Mg >2, K >4 Risk stratification labs: LDL, TSH, A1c # Chronic conditions #MDD Continue sertraline VTE prophylaxis: warfarin Code status: Full Surrogate Decision Maker: Ian Stanley Living Situation Before Admission: Home Discharge Plan (equipment, therapy, and facility): likely home Plan discussed with [facility] 1 VANGIE Adam, who was present during diaz portions of the evaluation today. [place] [place] [phone] with any questions. Erica John, PawelChir. documented in this encounter Consult Notes * Miguel Angel Hernandez, P.T., D.P.T. - 09/09/2024 11:34 AM CDT Physical Therapy Inpatient Evaluation/Treatment SUBJECTIVE Patient's Name: Sam Gross Referring/Attending Provider: Zhou Meredith M.D. Reason for Referral: Physical Therapy Evaluate and Treat Onset Date: 09/06/2024 Pertinent Medical / Surgical History: Medical History[1] Surgical History[2] History of Present Illness: Sam Gross is a 83 y.o. male who was admitted to [facility] in [place] on 09/06/2024 for Syncope [R55]. Precautions Other Precautions: Hx of syncope RST PT/OT Falls screen: Fall in the last 12 months: Yes Did you have an injury with the fall: No Are you fearful of falling: No Pain Assessment: Pain not rated, but present Patient/Caregiver Goals: No goals stated Subjective Comments: Agreeable to therapy session. Home Living and Equipment: Lives with: Spouse/Significant other Receives help from: No help from others Type of Home: House Home Layout: One Level + basement Able to live on main level with bedroom/bathroom Home Access: Stairs to enter: Number of steps: 2, Railing: unilateral handrail Bathroom Accessibility: Bathroom accessible via walker Shower: Walk-in Shower Bathroom Equipment: Grab bars in shower, Hand-held shower head, Shower chair with back Toilet: Standard Toilet Toilet Equipment: Vanity next to toilet Assistive Device Owned: Front wheeled walker, Four wheeled walker, Single point cane Adaptive Equipment Owned: [employer] Other DME Owned: Regular flat bed Prior Level of Function and Mobility: Basic Activities of Daily Living: Independent Instrumental Activities of Daily Living: Independent Functional Mobility: Independent Driving: Yes Occupational Role: Retired Leisure Interests: bay, fish, golfing, yard work, wood work. OBJECTIVE Vital Signs: HR 70s at rest up to 115 with activity Seated blood pressure 105/59 (77) Standing blood pressure 98/55 (69) Evaluation Assessments: Strength: Lower extremities within functional limits Range of Motion:Lower extremities within functional limits Balance: Static Sitting: Good (Maintains balance without support) Dynamic Sitting: Good (Maintains balance without support) Static Standing: Good (Maintains balance without support) Dynamic Standing: Good (Maintains balance without support) Activity Tolerance: Endurance: Tolerates 10-20 minutes of activity Outcome Measures: AM-PAC Inpatient Short Form: Interpretation: Based on scoring guidelines using the raw score value: Those going to home had an average score at or above 18 Those going to facility had an average score at or below 17 Clinicians answer the AM-PAC Inpatient Short Form based on observed patient activity and/or clinical judgement (patient can be scored without physically performing each activity). The AM-PAC is one of many factors to consider when discharge planning. DGI 4: -Gait on level surface (3) Normal: Walks 20', no assistive devices, good speed, no evidence for imbalance, normal gait pattern. -Change in gait speed (3) Normal: Able to smoothly change walking speed without loss of balance or gait deviation. Shows a significant difference in walking speeds between normal, fast, and slow speeds. -Gait with horizontal head turns (3) Normal: Performs head turns smoothly with no change in gait. -Gait with vertical head turns (3) Normal: Performs head turns with no change in gait. Interpretation: Patient scored 12/12 points. According to scoring guidelines, people who score in this range (10 or more) are not at an increased fall risk Therapeutic Interventions: SIT <> STAND: - Assist Level: Independent - Device: gait belt and no assistive device. - Surface: Chair - Therapist Delivery: assessed, facilitated - Assist/Cues Provided: No cuing required, no upper extremity use to transition to standing GAIT: - Distance: 240 meters - Assist Level: Supervision of 1, independent - Device: Gait belt and no assistive device - Quality: Steady, no evidence of instability or loss of balance - Therapist Delivery: assessed, facilitated, and instructed - Assist/Cues Provided: verbal cuing for participation dynamic gait index-4 components including horizontal head turns, vertical head turns, change in gait speed. STAIRS: - 1 x 12 steps with unilateral UE support - Assist Level: Supervision - Device: gait belt - Navigation Pattern: - Ascending: step to - Descending: step to - Therapist Delivery: assessed, facilitated, and instructed - Assist/Cues Provided: Hand placement; repeat step-ups performed within room to monitor patient's heart rate response. Her rate up to 90 beats per minute after repeat step-ups. EDUCATION: -Role of physical therapy in the acute care setting -Physical therapy plan of care -Importance of regular mobility within hospital to progress activity tolerance and prevent deconditioning -Instructed patient to ask for assistance if dizzy when mobilizing. The patient's status was discussed and the following coordination of care occurred with the RN Patient was left in bedside chair at end of session with call light in reach, all needs met and questions answered. Assessment Discharge Therapy Needs - PT: No further skilled therapy If skilled therapy is recommended, skilled therapy can include physical therapy provided by home health, outpatient clinic, or a post-acute facility. The location of these services is determined by the patient's care team in partnership with patient/family. Barriers to Discharge Home: None From a physical therapy perspective, the level of care above has been recommended for Mr. Gross after hospital discharge. This level of care is based on his functional abilities during today's session. This may change throughout the hospital course and will be updated as appropriate. Clinical Impression: Currently, patient presents with a recent fall and intermittent dizziness with mobility resulting in the following impaired gait and impaired ability to complete stairs. In today's session patient was able to perform transfers, ambulation, stair navigation without physical assistance and without evidence of instability. Repeat step-ups were performed to examined patient's heart rate response to activity, throughout the session his heart rate ranged from 70 beats per minute to 115 beats per minute. He denied sensations of lightheadedness, dizziness, and shortness of breath. He was stable with ambulation without an assistive device, and had no difficulty navigating stairs. As he presents today, he is likely near his baseline level of function as far as mobilityis concerned. His main limiting factor is intermittent dizziness which per nursing report he experie nced this morning when ambulating. He has achieved all his physical therapy goals within the acute care setting and will be discharged from acute care physical therapy at this time. Should his statuschange or new concerns arise please do not hesitate to reach out. Physical therapy treatment is medically necessary to restore and maximize function, maximize safetyand facilitate discharge to home, teach and educate the patient and/or caregivers. Recommendations for mobility/activity while hospitalized: Supervision of 1/independent depending on patient's vitals and ongoing dizziness. Plan PT Plan Comments: All goals achieved, no follow-up required Functional Goals: PT Inpatient Goals PT Goal #1: Patient will demonstrate the ability to perform all transfers with modified independence with least restrictive assistive device to progress towards prior level of function and facilitatesafe discharge. PT Goal #1 Status: Achieved PT Goal #2: Patient will demonstrate the ability ambulate for 50 m with modified independence with least restrictive assistive device to progress towards prior level of function and facilitate safe discharge. PT Goal #2 Status: Achieved (With independence) PT Goal #3: Patient will demonstrate the ability to navigate up/down 2 stair with unilateral upper extremity support supervision to overcome the barrier of entry to their home. PT Goal #3 Status: Achieved (With independence) Progress: All PT goals achieved Sam Gross has Good rehab potential to meet the expected outcomes in a reasonable period of time. Treatment Plan: Plan: Discontinue PT PT Amount: 1 visit per day PT Frequency: One-time visit PT Inpatient Duration : Until goals are met or hospital discharge Requires Inpatient Follow-Up: No Patient agrees with the plan of care and goals. Treatment interventions may include: Treatment/Interventions: Therapeutic functional activity Billing: Tiered PT Evaluation Codes: Comorbid Conditions: Cardiopulmonary disease Examination elements: 3 Clinical Presentation: Evolving Clinical Decision Making: Low complexity clinical decision making Time Spent with Patient Evaluations PT Eval - Low Complexity: 10 min Therapeutic Interventions Therapeutic Activity (min): 13 min Time Tracking Total Timed Units (min): 13 min Total Treatment Time (min): 23 min Miguel Angel Hernandez P.T., D.P.T. [1] Past Medical History: Diagnosis Date Atrial Fibrillation Unspecified (HCC) 2005 Blood Transfusion No Diagnosis 2006 Cataract 2011 Chronic Obstructive Pulmonary Disease (HCC) Concussion Loss Of Consciousness Unspecified Duration Initial Coronary Artery Disease (Unspecified) Depressive Disorder 2006 Gallbladder Disorder Heart Failure NOS Other Injury Of Unspecified Body Region Pneumonia Polyp Colon Renal Disease Skin Cancer (Primary) NOS Sleep Apnea Transient Ischemic Attack 2016 [2] Past Surgical History: Procedure Laterality Date AORTIC VALVE REPLACEMENT N/A 09/10/2007 1. Aortic valve replacement, No. 25 CarboMedics Mechanical aortic valve prosthesis. 2. Replacement of ascending aorta from sinotubular junction to just proximal to the right brachiocephalic utilizingNo. 28 Hemashield graft. 3. Establishment of temporary extracorporeal circulation to 34 degrees using the Terumo Capiox RX25 membrane oxygenator. 4. Cardioplegic arrest (blood). BRONCHOSCOPY FLEXIBLE N/A 02/07/2022 Procedure: BRONCHOSCOPY FLEXIBLE.; Surgeon: Zeinab Qureshi M.D.; Location: [facility] OR BRONCHOSCOPY FLEXIBLE: BRONCHOALVEOLAR LAVAGE IMMUNOCOMPROMISED HOST N/A 02/07/2022 Procedure: BRONCHOSCOPY FLEXIBLE, BRONCHOALVEOLAR LAVAGE, IMMUNOCOMPROMISED HOST VS NON-IMMUNOCOMPROMISED HOST.; Surgeon: Zeinab Qureshi M.D.; Location: [facility] OR CARDIAC ELECTROPHYSIOLOGY PROCEDURE N/A 09/07/2024 Procedure: Drug Study; Surgeon: Mynor Perez M.D.; Location: [facility] CCL CATH ANGIOGRAM N/A 09/07/2024 Procedure: HEART CATHETERIZATION - RIGHT; Surgeon: Mynor Perez M.D.; Location: [facility] CCL GALLBLADDER SURGERY HERNIA REPAIR TONSILLECTOMY TRICUSPID VALVE, VALVULOPLASTY N/A 11/01/2014 Tricuspid valve, valvuloplasty Notes: BarboMedics Annuloflex ring 28mm, Serial #[id number], [id number] VASECTOMY * Kristy Ott, O.TArmando, [facility] - 09/09/2024 9:35 AM CDT Occupational Therapy Acute Hospital Inpatient Evaluation/Treatment SUBJECTIVE Patient's Name: Sam Gross Referring/Attending Provider: Zhou Meredith M.D. Reason for Referral: Occupational Therapy Evaluation and Treatment Onset Date: 09/06/2024 PERTINENT MEDICAL / SURGICAL HISTORY: Medical History[1] Surgical History[2] History of Present Illness: Sam Gross is a 83 y.o. male who was admitted to [facility] in [place] on 09/06/2024 for Syncope [R55]. Relevant Medical History: syncope episode at home Precautions Other Precautions: Hx of syncope Falls screen: Fall in the last 12 months: Yes, syncope episode Did you have an injury with the fall: Yes, hit head Are you fearful of falling: No Pain Assessment: Pain not reported during session. Patient/Caregiver Goals: Discharge home Subjective Comments: Patient greeted in chair and agreeable to therapy session. Home Living and Equipment: Lives with: Spouse/Significant other Receives help from: No help from others Type of Home: House Home Layout: One Level + basement Able to live on main level with bedroom/bathroom Home Access: Stairs to enter: Number of steps: 2, Railing: unilateral handrail Bathroom Accessibility: Bathroom not accessible Shower: Walk-in Shower Bathroom Equipment: Grab bars in shower, Hand-held shower head, Shower chair with back Toilet: Standard Toilet Toilet Equipment: Vanity next to toilet Assistive Device Owned: Front wheeled walker, Four wheeled walker, Single point cane Adaptive Equipment Owned: [employer] Other DME Owned: Regular flat bed Prior Level of Function and Mobility: Basic Activities of Daily Living: Independent Instrumental Activities of Daily Living: Independent Functional Mobility: Independent Driving: Yes Occupational Role: Retired Leisure Interests: bay, fish, golfing, yard work, wood work. OBJECTIVE Vital Signs: Vitals taken during session: Pulse rate: 71 bpm, Blood pressure: 114/61 mmHg, and MAP: 75 Post mobility: HR 81 BP: 105/51(68) Evaluation Assessment: STRENGTH: Upper extremities within functional limits RANGE OF MOTION: Upper extremities within functional limits BALANCE: Static Sitting: Good (Maintains balance without support) Dynamic Sitting: Good (Maintains balance without support) Static Standing: Good (Maintains balance without support) Dynamic Standing: Good (Maintains balance without support) ACTIVITY TOLERANCE: Endurance: Does not limit participation in activity Outcome Measures: AM-PAC Inpatient Short Form: Putting on and taking off regular lower body clothing?: None Putting on and taking off regular upper body clothing?: None Taking care of personal grooming such as brushing teeth?: None Bathing (including washing, rinsing, drying)?: None Toileting, which includes using toilet, bedpan, or urinal?: None Eating meals?: None Daily Activities Raw Score (max 24): 24 Daily Activities Standardized Score: 57.54 Interpretation: Based on scoring guidelines using the raw score value: Those going to home had an average score at or above 18 Those going to facility had an average score at or below 17 Clinicians answer the AM-PAC Inpatient Short Form based on observed patient activity and/or clinical judgment (patient can be scored without physically performing each activity). The AM-PAC is one ofmany factors to consider when discharge planning. Cognition: No observable concerns with cognition at this time Therapeutic Interventions: ACTIVITIES OF DAILY LIVING: LOWER BODY DRESSING - Assist Level: independent - Patient Location: chair - LB Dressing Item: socks - Therapist Delivery: assessed - Assist/Cues Provided: none TOILETING - Assist Level: independent - Patient Location: toilet - Activity: clothing management - Therapist Delivery: assessed - Assist/Cues Provided: none FUNCTIONAL TRANSFERS: SIT<>STAND - Assist Level: independent - Device: no assistive device and gait belt - Surface: chair, toilet - Therapist Delivery: assessed - Assist/Cues Provided: none FUNCTIONAL MOBILITY: Mobility performed to practice household distances with independence and no assistive device and gait belt Education/Training Provided: - Role of OT in acute setting Team Communication: The patient's status was discussed and coordination of care occurred with RN, PT Patient was left in bedside chair at end of session with call light in reach, all needs met and questions answered. Assessment Discharge Therapy Needs - OT: No further skilled therapy If skilled therapy is recommended, skilled therapy can include occupational therapy provided in home health, outpatient or post-acute facility. The location of these services is determined by patient's care team in partnership with patient/family. Barriers to Discharge Home: None Clinical Impression: The patient was admitted following a syncope episode at home. He reports no homegoing concerns at this time. Vitals monitored throughout session and within normal limits. The patient was able to demonstrate toileting lower body dressing and functional ambulation with independence today. The patientappears to have all homegoing needs met at this time. No skilled OT indicated. OT will sign off. Please re-consult if functional status changes. Plan Functional Goals: OT Goal #1: The patient will complete donning/doffing socks with independence to return to prior level of function OT Goal #1 Status: Achieved OT Goal #2: The patient will complete toilet transfer with independence prior to discharge OT Goal #2 Status: Achieved Progress: Evaluation only, no skilled therapy treatment indicated Rehab potential: Mr. Gross has excellent potential to achieve established occupational therapy goals within the time frame outlined below. OT Frequency: OT Frequency: One-time visit OT Inpatient Duration : Until goals are met or hospital discharge Requires Inpatient OT Follow-Up: No Plan: Discontinue OT Treatment interventions may include: Treatment Interventions: Therapeutic exercise, Therapeutic functional activity, Self-care/home management, Cognitive skills training Occupational Therapy Attestation Statement: Patient agrees with the plan of care and goals. Billing: Tiered OT Evaluation Codes: Comorbid Conditions: Cardiopulmonary disease Personal Factors: Age Occupational Profile and History review: Brief Performance Deficits: 1 - 3 performance deficits Evaluation Complexity: Low Time Spent with Patient Evaluations OT Eval - Low Complexity : 20 min Time Tracking Total Treatment Time (min): 20 min Kristy Ott O.T., [facility] [1] Past Medical History: Diagnosis Date Atrial Fibrillation Unspecified (HCC) 2005 Blood Transfusion No Diagnosis 2006 Cataract 2011 Chronic Obstructive Pulmonary Disease (HCC) Concussion Loss Of Consciousness Unspecified Duration Initial Coronary Artery Disease (Unspecified) Depressive Disorder 2006 Gallbladder Disorder Heart Failure NOS Other Injury Of Unspecified Body Region Pneumonia Polyp Colon Renal Disease Skin Cancer (Primary) NOS Sleep Apnea Transient Ischemic Attack 2016 [2] Past Surgical History: Procedure Laterality Date AORTIC VALVE REPLACEMENT N/A 09/10/2007 1. Aortic valve replacement, No. 25 CarboMedics Mechanical aortic valve prosthesis. 2. Replacement of ascending aorta from sinotubular junction to just proximal to the right brachiocephalic utilizingNo. 28 Hemashield graft. 3. Establishment of temporary extracorporeal circulation to 34 degrees using the Terumo Capiox RX25 membrane oxygenator. 4. Cardioplegic arrest (blood). BRONCHOSCOPY FLEXIBLE N/A 02/07/2022 Procedure: BRONCHOSCOPY FLEXIBLE.; Surgeon: Zeinab Qureshi M.D.; Location: [facility] BRONCHOSCOPY FLEXIBLE: BRONCHOALVEOLAR LAVAGE IMMUNOCOMPROMISED HOST N/A 02/07/2022 Procedure: BRONCHOSCOPY FLEXIBLE, BRONCHOALVEOLAR LAVAGE, IMMUNOCOMPROMISED HOST VS NON-IMMUNOCOMPROMISED HOST.; Surgeon: Zeinab Qureshi M.D.; Location: [facility] CARDIAC ELECTROPHYSIOLOGY PROCEDURE N/A 09/07/2024 Procedure: Drug Study; Surgeon: Mynor Perez M.D.; Location: [facility] CATH ANGIOGRAM N/A 09/07/2024 Procedure: HEART CATHETERIZATION - RIGHT; Surgeon: Mynor Perez M.D.; Location: [facility] GALLBLADDER SURGERY HERNIA REPAIR TONSILLECTOMY TRICUSPID VALVE, VALVULOPLASTY N/A 11/01/2014 Tricuspid valve, valvuloplasty Notes: [facility] Annuloflex ring 28mm, Serial #[id number], [id number] VASECTOMY * Dalila Grigsby CEP - 09/08/2024 10:55 AM CDTAssociated Order(s): IP CONSULT TO CARDIAC REHABILITATION Thank you for the cardiac rehabilitation consult, however this patient does not currently have a qualifying diagnosis. If that changes or you have any questions we can be reached Thursday - Thursday, 7:30 to 4:00pm at [phone]. To qualify for participation in a Cardiac Rehabilitation program, the following CMS criteria must be met: Angina, Stable Coronary Artery Bypass Graft Coronary PTCA/Stent Heart Assist Device Heart Transplant Heart Valve Repair Heart Valve Replacement Myocardial Infarction To qualify for participation in a Cardiac Rehabilitation program for stable chronic heart failure the following CMS criteria must be met: EF less than or equal to 35% NYHA class II-IV symptoms despite being on optimal heart failure therapy for at least 6 weeks Stable - defined as no major cardiovascular hospitalization within 6 weeks * Domingo Ramsay M.B.B.S. - 09/07/2024 11:38 AM CDTAssociated Order(s): IP CONSULT TO CARDIOLOGY Images from the original note were not included. SUBJECTIVE REFERRAL Cardiology 1 CHIEF COMPLAINT Pulmonary hypertension HISTORY OF PRESENT ILLNESS Mr. Gross is a 83 y.o. male with past medical significant aortic valve disease status post 25 mm Carbo-Medics mechanical aortic valve prosthesis with Hemashield ascending aorta graft (10-SEP-2007), on warfarin, target INR 2-3, status post tricuspid valve repair with 28 mm Carbo-Medics AnnuloFlex band (01-NOV-2014), permanent AFib s/p AVN ablation with subsequent dual-chamber pacemaker placement 2004; RV pacing 99%, Pulmonary hypertension (likely group 2), mild COPD, Hx of TIM, prior tobacco use. Briefly, he was admitted after a syncopal episode on 09/05. He was putting his dishes away when episode occurred. He lost consciousness for a few seconds. ( was in the house at the time that it happened). No prodromal episodes. Device interrogation was performed which showed transient nonsustained VT. EP was consulted and think burden was minimal to explain the recent presyncopal event. His Echo today showed normal LVEF 63%, severely increase size and severely reduced function of RV, RV free wall strain -12%, RVSP 78 (RAP 20), severe TR, mild MR, mildly enlarged LA size, severely enlarged RA size. This is similar to the echo in apr 2024 when RVSP was 72 and RV free wall strain -15%. Prior to this admission, he notes that he has been feeling more tired over the past month. He is still able to do his ADLs however has to pace himself. He is able to walk about 1-2 blocks on level ground at his pace, however if he carries any object, he gets easily winded. He does have occasional lightheadedness when he gets up from sitting position. Denies any previous episodes of exertional lightheadedness or dizziness. Denies previous exertional syncope or presyncope. He does not have significant lower extremity edema. Denies any exertional chest pain. Lately, he has been sleeping on the recliner. He has history of TIM and used to be on CPAP, however has not been using it for the past 2 years. Denies any Raynaud's, joint pain or skin rashes. Mr. Sam Gross denies any known history of connective tissue disease, liver disease, inhaledor intravenous drug use, anorexigen use, venous thromboembolism or intrinsic lung disease. The following portions of the patient's history were reviewed and updated as appropriate: allergies, current medications, family history, medical history, social history, surgical history and problemlist. REVIEW OF SYSTEMS A 10-point review of systems was negative except as noted in the history of present illness. FAMILY HISTORY Denies any known family history of pulmonary hypertension, venous thromboembolism or connective tissue disease. 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 Tobacco/Alcohol/Drug use: Prev smoking history, 40 pack year smoking history, quit 20 years ago. Noillicit drug use. Other: No pets at home. Lives with . OBJECTIVE PHYSICAL EXAM Vitals: 09/07/24 0730 BP: 119/64 Pulse: 69 Resp: 20 Temp: 36.7 ??C SpO2: 90% General: Well appearing. No conversational dyspnea. Eyes: Anicteric sclerae. ENT: No oropharyngeal lesions. Vessels: JVP elevated significantly Lymph: No cervical or supraclavicular lymphadenopathy. Heart: 3/6 systolic murmur at LLSB. Lungs: Clear to auscultation bilaterally without wheezes or crackles or pulmonary artery bruits. Abdomen: Soft, nontender. Extremities: No lower extremity edema. Skin: No appreciable rashes or lesions STUDIES NTproBNP: Latest Reference Range & Units 09/14/14 07:48 08/24/18 11:11 01/17/19 12:45 11/24/20 18:48 12/02/22 07:35 09/06/24 07:21 NT-Pro BNP <=540 pg/mL 1395 (H) 2294 (H) 1233 (H) 5625 (H) 1913 (H) 5974 (H) (H): Data is abnormally high Other Labs: Latest Reference Range & Units 09/07/24 04:39 09/07/24 04:40 Hemoglobin 13.2 - 16.6 g/dL 9.5 (L) Hematocrit 38.3 - 48.6 % 29.9 (L) Erythrocytes 4.35 - 5.65 x10(12)/L 3.16 (L) MCV 78.2 - 97.9 fL 94.6 RBC Distrib Width 11.8 - 14.5 % 16.6 (H) Platelet Count 135 - 317 x10(9)/L 188 Leukocytes 3.4 - 9.6 x10(9)/L 6.5 Neutrophils 1.56 - 6.45 x10(9)/L 5.31 Lymphocytes 0.95 - 3.07 x10(9)/L 0.41 (L) Monocytes 0.26 - 0.81 x10(9)/L 0.62 Eosinophils 0.03 - 0.48 x10(9)/L 0.11 Basophils 0.01 - 0.08 x10(9)/L 0.05 Prothrombin Time, P 9.4 - 12.5 sec 23.0 (H) INR 0.9 - 1.1 2.1 Sodium, S 135 - 145 mmol/L 135 Potassium, S 3.6 - 5.2 mmol/L 4.7 Chloride, S 98 - 107 mmol/L 102 Bicarbonate, S 22 - 29 mmol/L 23 Anion Gap 7 - 15 10 BUN (Blood Urea Nitrogen), S 8 - 24 mg/dL 31 (H) Creatinine 0.74 - 1.35 mg/dL 1.54 (H) Estimated GFR (eGFR) >=60 mL/min/BSA 44 (L) Calcium, Total, S 8.8 - 10.2 mg/dL 8.6 (L) Glucose, S 70 - 140 mg/dL 102 Magnesium 1.7 - 2.3 mg/dL 2.5 (H) Bilirubin, Total, S 0.0 - 1.2 mg/dL 1.3 (H) Alanine Aminotransferase (ALT), S 7 - 55 U/L 12 Aspartate Aminotransferase (AST), S 8 - 48 U/L 25 Alkaline Phosphatase, S 40 - 129 U/L 135 (H) Protein, Total, S 6.3 - 7.9 g/dL 6.3 Albumin, S 3.5 - 5.0 g/dL 3.9 (L): Data is abnormally low (H): Data is abnormally high Echo: 09/06/2024 Final Impressions 1. Severely enlarged right ventricular chamber size with severely reduced systolic function. Averaged right ventricular free wall longitudinal peak systolic strain is -12% (normal </= -25%). 2. Estimated right ventricular systolic pressure 78 mmHg (right atrial pressure of 20 mmHg). 3. Status post tricuspid valve repair with 28 mm Carbo-Medics AnnuloFlex band (01-NOV-2014). 4. Severe tricuspid valve regurgitation. Likely due to combination of annular dilatation and devicelead impingement. 5. Tricuspid valve diastolic mean Doppler gradient 2 mmHg (heart rate 71 BPM). 6. 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 7. Aortic valve prosthetic leaflet motion not well visualized. Unable to measure mean gradient due to challenging Doppler alignment. 8. Normal left ventricular chamber size. Calculated ejection fraction 63%. 9. Abnormal ventricular septal motion - post-operative without other regional wall motion abnormalities. 10. Severely enlarged inferior vena cava size with no inspiratory collapse. 11. Tiny posterior pericardial effusion. 12. Compared to the report of 04/21/2024 no significant change has occurred. Side by side comparison of images performed. Findings Echo performed at the patient's bedside. Echocardiogram performed per left ventricular function protocol. Last full echocardiogram performed 04/21/2024. LEFT VENTRICLE:Normal left ventricular chamber size. Calculated 2-D linear left ventricular ejection fraction 63%. No dynamic left ventricular outflow tract obstruction at rest or with Valsalva. Abnormal ventricular septal motion - post- operative without other regional wall motion abnormalities. Indeterminate left ventricular filling pressure. RIGHT VENTRICLE:Severely enlarged right ventricular chamber size. Severely reduced right ventricular systolic function. Estimated right ventricular systolic pressure 78 mmHg (right atrial pressure of20 mmHg). Averaged right ventricular free wall longitudinal peak systolic strain is -12% (normal </= -25%). ATRIA:Mildly enlarged left atrial size by visual estimate. Severely enlarged right atrial size by visual estimate. 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 Trivial aortic valve prosthetic regurgitation. No aortic valve periprosthetic regurgitation. Thickened mitral valve. Mildly calcified mitral annulus. Mild mitral valve regurgitation. Pulmonary valve not well visualized. Status post tricuspid valve repair with 28 mmCarbo-Medics AnnuloFlex band (01-NOV-2014). Tricuspid valve diastolic mean Doppler gradient 2 mmHg (heart rate 71 BPM). Severe tricuspid valve regurgitation. OTHER ECHO FINDINGS:Severely enlarged inferior vena cava size with no inspiratory collapse. Device lead (s) identified in right atrium and right ventricle. No intracardiac mass or thrombus, but the left atrial appendage cannot be visualized adequately with transthoracic echo to exclude thrombus in t his location. Tiny posterior pericardial effusion. Prev CT scan: 04/2024 EXAM: CT CHEST WITHOUT IV CONTRAST COMPARISON: Chest CT 03/13/2023 FINDINGS: Continued slight decrease in size of the inferior right lower lobe nodule which measures approximately 13 x 10 mm (4/582) compared to 16 x 12 mm at the same level previously. An area of previously new clustered micronodularity in the inferior right lower lobe has resolved and clustered ill-defined nodularity/micronodularity in the inferolateral left lower lobe has slightly improved. New areas of loosely clustered micronodularity peripherally in the posterior right upper lobe, circa /129, 217. No change in previously new tiny groundglass nodular density in the lateral left upper lobe ( 4/234). No change in additional innumerable tiny calcified and uncalcified pulmonary nodules. Diffuse bilateral emphysema. Scattered scarring. New small right pleural effusion with increased atelectasis in the right base. Several mildly enlarged nodes throughout the mediastinum have mildly increased in size, for examplea 14 mm short axis right paratracheal node on previously measured 10 mm, 16 mm short axis subcarinal node on previously measured 13 mm, a 14 mm short axis AP window lymph node on previously measured 11 mm. Stable postoperative changes of sternotomy with AVR, graft repair of the ascending aorta aorta, left atrial appendage ligation and tricuspid annuloplasty. Vascular calcifications including severe coronary artery calcifications and calcifications along the wall of the left atrium. Stable main pulmonary artery enlargement measuring 44 mm, consistent with pulmonary arterial hypertension. Pacemaker leads in the right atrium and right ventricle. Mild degenerative skeletal changes. Small esophageal hiatal hernia. Stable right adrenal nodule measuring approximately 22 x 14 mm. Stable dystrophic calcifications inthe posterior right hepatic lobe. IMPRESSION: 1. Continued slight decrease in size of the inferior right lower lobe nodules since 03/13/2023. 2. Mixed changes of areas of clustered micronodularity in both lungs, likely infectious/inflammatory. Otherwise innumerable tiny calcified and uncalcified pulmonary nodules are unchanged. 3. Mild enlargement of several mildly enlarged nodes throughout the mediastinum, indeterminate, butmay be reactive. 4. New small right pleural effusion, nonspecific/indeterminate. 5. Remainder unchanged. Most recent PFTs: ASSESSMENT / PLAN # Pulmonary Hypertension, likely group 2 (No RHC yet), RVSP 78\ # Acute on chronic heart failure # NSVT on device interrogation # Permanent atrial fibrillation s/p AV node ablation and subsequent dual-chamber pacemaker placement 2004 # s/p 25 mm Carbo-Medics mechanical aortic valve prosthesis with Hemashield ascending aorta graft 09/10/2007 # Status post tricuspid valve repair with 28 mm Carbo-Medics AnnuloFlex band 11/01/2014 Overall his Pulmonary hypertension is likely in the setting of valvular heart disease. He does haveother risk factors for PH such as TIM. He denies any hx of PE and has been on AC with warfarin. HisPFTs from 2020 show that he had mild obstructive ventilatory defect with moderately reduced DLCO. Does not have any Hx of Connective tissue disease. The current syncopal episode does seem to be cardiogenic in origin from his right heart failure. Other possibility could be Arrhythmia related vs orthostatic. His PH is likely combined pre and post capillary. Would recommend further evaluation with invasive hemodynamics. Plan - Recommend RHC with drug study - Will follow up the results. Thank you for the consult. We will continue to follow the patient. Please do not hesitate to reach out to Pulmonary Hypertension team for any questions. Discussed with Dr Plascencia. Cosigned by Tom Plascencia M.D. at 09/07/2024 3:17 PM CDT * Anju Chen M.D. - 09/06/2024 1:57 PM CDTAssociated Order(s): IP CONSULT TO CARDIOLOGY HEART RHYTHM CONSULT NOTE REASON FOR CONSULT: - query cardiac syncope - h/o pacemaker placement and history of NSVT PRIMARY TEAM: [facility] REASON FOR CURRENT ADMISSION: Syncopal episode SUBJECTIVE HISTORY OF PRESENT ILLNESS Mr. Gross is a 83 y.o. male with significant history of, but not limited to # Permanent AFib s/p AVN ablation with subsequent dual-chamber pacemaker placement 2004; RV pacing 99% # Background of asymptomatic NSVT under investigation # Status post 25 mm Carbo-Medics mechanical aortic valve prosthesis with Hemashield ascending aortagraft (10-SEP-2007), on warfarin, target INR 2-3 # Status post tricuspid valve repair with 28 mm Carbo-Medics AnnuloFlex band (01-NOV-2014) # History of TIA # Depression # Ex-smoker, quit 20 years ago Cardiac-related outpatient meds: - Metoprolol succinate 50 mg daily - Warfarin He presented with concerns of possible cardiac syncope. He report developing a first unwitnessed syncopal episode with head injury while walking to the kitchen after eating his dinner on the sofa. Denies any prodromal or postictal symptoms. Unclear downtime. Prompted him to come to the hospital. Given his known history of nonsustained VT and concerns for arrhythmia induced syncope, HRS was consulted for further evaluation. He currently feels well In regards to his prior symptoms, he gets lightheaded when he lies down and rolls to his left. Intermittently experiences brief funny sensation in the chest without associated lightheadedness or passing out episodes. He has known ongoing NSVT (rate 160-190) from device interrogation in previous Holter monitoring; however, there were no symptoms correlating with the arrhythmia episodes. He was started on metoprolol succinate for that but dose titration has been limited due to low blood pressure.Over the past month, he reports ongoing shortness of breath on exertion without chest pain; overallNYHA functional class 2. The most recent coronary angiogram was from 10/31/2014 which showed mild coronary artery disease with mild pulmonary hypertension. TTE 04/21/2024 with LVEF 59%, severely enlarged RV size with severelyreduced systolic function, RVSP 72, [id number] mitral regurgitation, severe tricuspid regurgitation, and mildly enlarged left atrial size and severely enlarged right atrial size. PHYSICAL EXAMINATION Vitals: BP 100s/40s, HR 70s (V-paced) GA: NAD ASSESSMENT / PLAN # First unwitnessed syncopal episode # Intermittent NSVT from device interrogation, rate 160-190, low burden # Severe pulmonary hypertension, RVSP 72 from TTE 04/21/2024 # permanent atrial fibrillation s/p AV node ablation and subsequent dual-chamber pacemaker placement 2004 # Severe bicuspid aortic valve stenosis, enlarged ascending aorta - s/p 25 mm Carbo-Medics mechanical aortic valve prosthesis with Hemashield ascending aorta graft 09/10/2007 - on warfarin, target INR 2-3 # Status post tricuspid valve repair with 28 mm Carbo-Medics AnnuloFlex band 11/01/2014 # Mild COPD # Ex-smoker, quit 20 years ago # History of TIA The patient came in with the 1st episode of syncopal episode in the setting of known intermittent NSVT from cardiac device interrogation without clear correlating symptoms. There was concern for arrhythmia-related syncope. HRS was consulted for further evaluation. Given the current clinical presentation, we cannot entirely rule out arrhythmia- induced syncope. However, absence of obvious correlating symptoms from prior Holter monitoring and device monitoring along with atypical symptoms of positional lightheadedness make it less likely. Differential diagnosesinclude severe pulmonary hypertension as evidenced on TTE 04/21/2024 and possible orthostatic hypotension. We would recommend checking blood pressure sitting and standing for any orthostatic components. We will follow-up on repeat echo and re-evaluate. We will continue to follow with you. Please page the HRS Consult Service pager at [phone] with any questions. Staffed with Dr. Thornton. Anju Chen MD General Financial Aid Coordinator * Marquita Lo M.D. - 09/06/2024 11:38 AM CDT After opportunity to review current presentation, past medical history review of systems social history physical examination and plan as was presented and documented by the cardiology 1 team, patientwas interviewed and examined, agree with the plan. Mr. Gross was admitted to our service secondary to syncope. He has a syncopal episode yesterday following dinner without any proceeding signs no nausea vomiting dizziness or diaphoresis. He lost hisconsciousness and when he regained it he knew exactly where he was and there was no on voluntary movement. He did not have a previous episode of syncope although we was lightheadedness when they increase his dose of beta-carolina and then improved when they reduced the dose. Physical examination was consistent with 2/6 systolic murmur in the left sternal border and base nocarotid bruits. Interrogation of the pacemaker during this episode revealed that there was no episode of bradycardia he did have episode of short nonsustained VT but they did not coincide with the episode. He does not have a dense of pulmonary hypertension and TAVR in 2007. Also was visited by heart rhythm Service with a agree that no source of arrhythmia can explain his episode of syncope. The plan currently is to repeat the echo to evaluate the pulmonary hypertension that maybe 1 of thecause for his syncope. Other cause maybe vasovagal events but there was no warning sign. documented in this encounter Nursing Notes * Clifton Lopes M.S., R.N., [facility] - 09/10/2024 2:13 PM CDT Problem: KNOWLEDGE DEFICIT Goal: Patient/family/caregiver demonstrates understanding of disease process, treatment plan, medications, and discharge instructions Outcome: Adequate for Discharge Problem: DISCHARGE PLANNING Goal: Patient discharge needs identified Outcome: Adequate for Discharge Problem: CARDIOVASCULAR - ADULT Goal: Maintains optimal cardiac output and hemodynamic stability Outcome: Adequate for Discharge Shift Goals: Clinical Goals for the Shift: monitor hemodynamic status, DC education Identify possible barriers to meeting goals/advancing plan of care: none End of Shift Summary: Patient has med criteria for dismissal. Patient has remained in hemodynamic status. Patient and stated an understanding of when to call provider and to attend follow-up appointments. At time of dismissal, VSS. Patient will be transported home via vehicle driven by son. * Jessica Herrera R.N. - 09/10/2024 4:47 AM CDT Shift Goals: Clinical Goals for the Shift: Patient will remain vitally stable Identify possible barriers to meeting goals/advancing plan of care: None. End of Shift Summary: Goal met. Patient remained vitally stable on room air. He remained free from falls. He got adequate rest. Problem: SAFETY ADULT Goal: Maintain a safe environment Outcome: Progressing Problem: SAFETY ADULT - RISK FOR FALL AND OR FALL INJURY Goal: Patient remains free from fall/fall injury Outcome: Progressing Problem: PAIN - ADULT Goal: PT VERBALIZES/DEMONSTRATES ADEQUATE COMFORT LEVEL OR BASELINE Outcome: Progressing Problem: INFECTION - ADULT Goal: Absence of infection during hospitalization Outcome: Progressing .Jessica Herrera R.N. * Neo Gallo M.S.N. RArmandoNArmando - 09/09/2024 3:[address] Cardiac Nitroglycerin Administration Screening: Is patient scheduled for a radiology exam with nitroglycerin? YES If yes, continue. Is patient???s systolic blood pressure greater than appropriate level per age (per table in med refdocument)? YES If yes, continue. Does patient report a history of know hypersensitivity to nitroglycerin? NO If no, continue. Does patient report having a history of aortic stenosis or hypertrophic cardiomyopathy (HOCM)? NO If no, continue. Is patient currently wearing a nitroglycerin patch or has taken isosorbide dinitrate or isosorbide mononitrate in the past 48 hours? NO If no, continue. Has patient taken Sildenafil (Viagra) or (Revatio), Vardenafil (Levitra), Tadalafil (Cialis) or (Adcirca) within 48 hours? NO If no, continue. CT Cardiac Metoprolol (Lopressor) Administration Screening: Does patient have an allergy or hypersensitivity to beta-blockers? NO If no, continue. User message: Beta-Blockers & Calcium Channel Blockers: Acebutolol (Sectral); Atenolol (Tenormin); Betaxolol (Kerlone); Bisoprolol (Zebeta); Carvedilol (Coreg); Esmolol (Brevibloc); Labetalol (Trandate); Metoprolol (Toprol); Nadolol (Corgard); Nebivolol (Bystolic); Penbutolol (Levatol); Pindolol (Visken); Propranolol (Inderal); Sotalol (Betapace); Diltiazem (Cardizem); VeraPAMIL (Isoptin, Calan). Is patients heart rate greater than target heart rate, as indicated in eScoop? NO If yes, continue Is patients systolic blood pressure greater than appropriate level per age (see medication reference document for specifics) YES If yes, continue Is patient currently on a beta-carolina infusion or calcium channel carolina infusion? NO If no, continue. Is patient or ? NO If no, continue. Does patient have history of asthma or reactive airway disease? NO If no, continue. Does patient have history of congestive heart failure class III or IV or documented EF less than 40%? NO If no, continue. Does patient have history of 2nd or 3rd degree heart block? NO If no, continue. Does patient have a permanent pacemaker? YES If yes, is patient???s pacemaker rate set higher than radiologist suggested rate? NO If yes, done - notify radiologist, if no, is patient 18 years old or older? YES If no, continue andadminister meds. * Hemal Martins R.N. - 09/09/2024 5:12 AM CDT Shift Goals: Clinical Goals for the Shift: Patient will remain vitally stable, safety and rest well. Identify possible barriers to meeting goals/advancing plan of care: None End of Shift Summary: Patient remained vitally stable, remained safe free from falls or fall injuryand rested well during the shift. * Maren Townsend R.N. - 09/08/2024 6:49 PM CDT Shift Goals: Clinical Goals for the Shift: Patient will remain vitally stable Identify possible barriers to meeting goals/advancing plan of care: none End of Shift Summary: VSS on RA; no pain. Patient ambulated in gonzalez x1 with standby assist; tolerated well. Per sx, patient to stay a couple more nights for diuresis and working with PT/OT. Lasix given around 1330, for entire shift UO 2,580mL; patient reports feeling less heavy in the chest. Patient rested between cares. Problem: SAFETY ADULT Goal: Maintain a safe environment Outcome: Progressing Problem: PAIN - ADULT Goal: PT VERBALIZES/DEMONSTRATES ADEQUATE COMFORT LEVEL OR BASELINE Outcome: Progressing Problem: SKIN/TISSUE INTEGRITY Goal: Skin/Tissue integrity maintained or improved Outcome: Progressing Goal: Oral and Nasal mucous membranes remain intact Outcome: Progressing * Maren Townsend R.N. - 09/07/2024 7:26 PM CDT Shift Goals: Clinical Goals for the Shift: Pt will remain hemodynamically stable during shift Identify possible barriers to meeting goals/advancing plan of care: none End of Shift Summary: VSS, remains on RA. Patient is not reporting any pain. Independent in room. Rested between cares. Problem: SAFETY ADULT Goal: Maintain a safe environment Outcome: Progressing Problem: PAIN - ADULT Goal: PT VERBALIZES/DEMONSTRATES ADEQUATE COMFORT LEVEL OR BASELINE Outcome: Progressing Problem: INFECTION - ADULT Goal: Absence of infection during hospitalization Outcome: Progressing documented in this encounter ED Notes * Kohi Zacarias APRN, CArmandoNArmandoP. - 09/06/2024 3:14 AM CDT SUBJECTIVE CHIEF COMPLAINT/REASON FOR VISIT Syncope and Palpitations HISTORY OF PRESENT ILLNESS See MDM REVIEW OF SYSTEMS Constitutional: Negative for fatigue and fever. Respiratory: Negative for shortness of breath. Cardiovascular: Negative for chest pain and palpitations. Neurological: Positive for syncope. Negative for weakness. Psychiatric/Behavioral: Negative for self-injury. OBJECTIVE Initial Vitals Temperature 09/06/24 0228 36.8 ??C Pulse Rate 09/06/24 0228 70 Heart Rate 09/06/24 0245 71 Resp Rate 09/06/24 0228 20 Blood Pressure 09/06/24 0228 141/66 SpO2 09/06/24 0228 100 % Pain Score 09/06/24 0248 0 - No pain PHYSICAL EXAMINATION Constitutional: Nursing note and vitals reviewed. He appears not lethargic. No distress. HENT: Head: Normocephalic and atraumatic. No signs of injury. Nose: Nose normal. No nasal discharge. Mouth/Throat: Oropharynx is clear and moist. Mucous membranes are moist. Eyes: Conjunctivae and EOM are normal. Pupils are equal, round, and reactive to light. Cardiovascular: Normal rate. Pulses are palpable. Capillary refill: takes less than 3 seconds Pulmonary/Chest: Effort normal. There is normal air entry. No tachypnea. No respiratory distress. Musculoskeletal: General: No tenderness or deformity. Normal range of motion. Cervical back: Normal range of motion. Neurological: Alert and oriented to person, place, and time. Skin: Skin is warm, dry, intact and normal color. He is not diaphoretic. Psychiatric: He has a normal mood and affect. Thought content normal. ASSESSMENT/PLAN The patient is a 83 y.o. male who presents for evaluation of a syncopal episode. He was evaluated [facility] after he had a no prodromal syncopal episode while carrying some boxes. He did hit his head and had undergone CT imaging at the outside facility which was negative. They were concerned as they felt that they saw a run of V-tach while he was present in [place]. The patient has remained asymptomatic since his episode of syncope he is currently resting comfortably in no acute distress. He is sent down here for pacemaker interrogation and likely Cardiology evaluation. I have reviewed the patient's chart for any pertinent visits and imaging to the presentation today.Given patient's history and presentation, most concerned for arrhythmia, traumatic injury has been ruled out given workup at outside facility. Will we obtain some baseline laboratory studies to ensure that he is not anemic or have any other electrolyte derangements.. We have ordered diagnostic studies to evaluate further. We will continue to reassess the patient. I have reviewed all radiologic and laboratory findings with the patient. All questions were answered. Indications to return to the emergency department were discussed with the patient, and they verbalized understanding of these. I have discussed follow up with the patient, and they verbalized understanding. ED Course as of 09/06/24434September 06, 2024 0434 Pacemaker interrogation did show V-tach while he was in [facility] but did not show any obvious signs of arrhythmia with his syncopal episode earlier. Overall after speaking with the provider who performed pacemaker interrogation he did recommend admission for further workup for this syncopal episode. Final Diagnoses: as of 09/06/24434 Syncope Khoi Zacarias APRN, C.N.P. 09/06/24434 * Sumit Hutson, R.N. - 09/06/2024 2:26 AM CDT Pt presents from [facility] after suffering syncopal fall, trauma scans unremarkable. While admitted, reportedly 15 second run of V-tach with palpitations at the time and light headedness. Presents for further and pacemaker eval. VSS Sumit Hutson, R.N. 09/06/24 0228 documented in this encounter Miscellaneous Notes * Documentation Clarification - Deanne Kilpatrick M.D., M.S. - 09/08/2024 9:45 PM CDT PROVIDER RESPONSE TEXT: To clarify, the appropriate diagnosis supported by the clinical indicators: Anemia QUERY TEXT: Clarification DOCUMENTATION CLARIFICATION REQUEST Please clarify/specify the appropriate diagnosis supported in the clinical indicators below. Clinical Indicators/Risk Factors/Treatment: Hgb (12/02/22)- 12.3 Hgb (09/06)- 9.9 Hgb (09/07)- 9.5 YIN Zacarias C.N.P. (ED Note 09/06)- labs to ensure that he is not anemic? Dr. Adam (H&P 09/06)- 83 y/o male admitted with syncope. Comorbidities include AFib s/p AVN ablation, mechanical aortic valve, MR, TR. Dr. Kilpatrick (PN 09/07)- D-dimer was slightly elevated, but has CKD Options provided: -- Anemia -- Other - I will add my own diagnosis -- Disagree - Clinically unable to determine / Unknown -- Refer to Clinical Documentation Reviewer Query created by: Maris Burris on 09/08/2024 8:23 AM Electronically signed by: Deanne Kilpatrick M.D. 09/08/2024 9:45 PM * Documentation Clarification - Deanne Kilpatrick M.D., M.S. - 09/08/2024 9:45 PM CDT PROVIDER RESPONSE TEXT: To clarify, the appropriate diagnosis supported by the clinical indicators: Chronic Kidney Disease stage 3 QUERY TEXT: Clarification DOCUMENTATION CLARIFICATION REQUEST Please clarify/specify the appropriate diagnosis supported in the clinical indicators below. Clinical Indicators/Risk Factors/Treatment: Cr (09/10/20, prior to admit)- 1.72 eGFR 42 (Non-Black) Cr (11/24/20, prior to admit)- 1.53 eGFR 42 (Non-Black) Cr (02/06/22, prior to admit)- 1.82 eGFR 37 Cr (09/10/22, prior to admit)- 1.8 eGFR 37 Cr (09/06)- 1.77 eGFR 37 Cr (09/07)- 1.[address] Adam (H&P 09/06)- 83 y/o male admitted with syncope. Comorbidities include AFib s/p AVN ablation, mechanical aortic valve, MR, TR. Dr. Sandoval (H&P 09/06)- troponins were elevated but adynamic and probably appropriate in contextof his renal impairment. Dr. Kilpatrick (PN 09/07)- D-dimer was slightly elevated, but has CKD Per [facility] hx: Dr. Dickey (PN 11/27/20)- CKD 3 (b/l 1.4-1.5) Options provided: -- Chronic Kidney Disease stage 3 -- Other - I will add my own diagnosis -- Disagree - Clinically unable to determine / Unknown -- Refer to Clinical Documentation Reviewer Query created by: Maris Burris on 09/08/2024 8:22 AM Electronically signed by: Deanne Kilpatrick M.D. 09/08/2024 9:45 PM * Documentation Clarification - Deanne Kilpatrick M.D., M.S. - 09/08/2024 9:44 PM CDT PROVIDER RESPONSE TEXT: To clarify, the appropriate diagnosis supported by the clinical indicators: Troponin elevation in the setting of heart failure, pulmonary hypertension, and CKD QUERY TEXT: Clarification DOCUMENTATION CLARIFICATION REQUEST Please clarify/specify the appropriate diagnosis supported in the clinical indicators below. Clinical Indicators/Risk Factors/Treatment: Troponin T (09/06)- 46 (Baseline); 48 (2 hr) 2H Delta Interp Not Changing Cr (09/06)- 1.77 eGFR 37 Cr (09/07)- 1.[address] Adam (H&P 09/06)- 83 y/o male admitted with syncope. Presented to OSH where PPM interrogation revealed a run of VT. Troponins flat at 46/48. ECG nonischemic. Comorbidities include AFib s/p AVN ablation, mechanical aortic valve, MR, TR. Dr. Sandoval (H&P 09/06)- troponins were elevated but adynamic and probably appropriate in contextof his renal impairment Dr. Kilpatrick (PN 09/07)- D-dimer was slightly elevated, but has CKD Options provided: -- Non-ischemic myocardial injury -- Other - I will add my own diagnosis -- Disagree - Clinically unable to determine / Unknown -- Refer to Clinical Documentation Reviewer Query created by: Maris Burris on 09/08/2024 8:22 AM Electronically signed by: Deanne Kilpatrick M.D. 09/08/2024 9:44 PM * Hospital Course - Thalia Nicholson M.D. - 09/06/2024 5:04 AM CDT Mr. Sam Gross is a 83 y.o. male who presented after a syncopal episode. 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 He had no prodromal symptoms or post-syncopal confusion. Prior to this episode, he was in his usual state of health. Given his symptoms, he presented to the emergency department for further evaluation. On arrival to the emergency department, he was hemodynamically stable. ECG showed a ventricular-paced rhythm without ischemic changes. His troponins were adynamic. Interrogation of his pacemaker revealed episodes of non-sustained ventricular tachycardia, which were not correlated to timing of symptom onset. He was admitted to theCardiology Service for further evaluation and management. During his hospitalization, we continued with inpatient monitoring of his heart rhythm. This revealed brief episodes of nonsustained ventricular tachycardia which were asymptomatic. No other arrhythmias, including bradyarrhythmias, were identified. His pacemaker was interrogated and appeared to be working well. The Heart Rhythm Service was consulted and felt his syncopal episode was unlikely to be arrhythmogenic in nature. We obtained a TTE to evaluate for structural etiologies of cardiac syncope. This revealed a severely enlarged right ventricle with increased right ventricular systolic pressure of 78 mmHg, increased from prior. His mechanical aortic prosthesis was functioning appropriately and there was no progression of his known tricuspid regurgitation status-post tricuspid valve repair. He underwent right heart catheterization on 09/07. 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 V/Q scan did not reveal pulmonary emboli. Though he had severe dilatation of the main pulmonary artery, there was no evidence of compression of the left main coronary artery on CT angiogram. Ov debi, his clinical picture was consistent with Group 2 Pulmonary Hypertension. He will follow-up with Pulmonary Hypertension clinic as an outpatient. He was diuresed to optimize heart function. He had a robust response to IV diuresis with subsequent elevation in creatine, felt to be pre-renal due to mild hypovolemia. His home diuretics were held with plan to re-start as directed by primary care provider following discharge. Overall, the etiology of his syncope was unclear, possible orthostaticor vasovagal. However, no arrhythmia or cardiac structural etiologies were identified. With resolution of his symptoms, he was deemed safe for discharge to home with close follow-up with his primary care provider and pulmonary hypertension clinic. documented in this encounter Plan of Treatment Upcoming Encounters Date Type Department Care Team (Latest Contact Info) Description 09/14/2024 8:30 AM CDT Appointment Department of Radiology, [facility] in [place], [place] [address] [place] [phone] Marquita Lo M.D. [address] [place] [phone] 09/14/2024 9:10 AM CDT Appointment Department of Laboratory Medicine and Pathology, [facility] in [place], [place] [address] [place] [phone] Marquita Lo M.D. [address] [place] [phone] 09/14/2024 9:30 AM CDT Appointment Department of Cardiac Rehabilitation in [place], [place] [address] [place] [phone] Marquita Lo M.D. [address] [place] [phone] 09/14/2024 2:00 PM CDT Comprehensive Visit Department of Cardiovascular Medicine in [place], [place] [address] [place] [phone] Tom Plascencia M.D. [address] [place] [phone] documented as of this encounter Procedures Procedure Name Priority Date/Time Associated Diagnosis Comments PROTHROMBIN TIME (PT), P Routine 09/10/2024 5:00 AM CDT CBC WITHOUT DIFFERENTIAL, B Routine 09/10/2024 5:00 AM CDT MAGNESIUM, S Routine 09/10/2024 5:00 AM CDT BASIC METABOLIC PANEL, S/P Routine 09/10/2024 5:[address] CARDIAC ANGIOGRAM WITH CORONARY ARTERIES WITH IV CONTRAST RAD - Routine (most inpatients and all outpatients) 09/09/2024 4:20 PM CDT NM LUNG VENTILATION AND PERFUSION WITH SPECT CT RAD - Routine (most inpatients and all outpatients) 09/09/2024 1:54 PM CDT RENAL FUNCTION PANEL, S Routine 09/09/2024 9:42 AM CDT CBC WITHOUT DIFFERENTIAL, B Routine 09/09/2024 9:42 AM CDT ADULT OXYGEN THERAPY Routine 09/09/2024 8:00 AM CDT ECG STAT 09/09/2024 7:54 AM CDT ECG Routine 09/09/2024 6:49 AM CDT PROTHROMBIN TIME (PT), P Routine 09/09/2024 5:18 AM CDT ADULT OXYGEN THERAPY Routine 09/08/2024 8:01 PM CDT ADULT OXYGEN THERAPY Routine 09/08/2024 8:01 AM CDT CBC WITHOUT DIFFERENTIAL, B Routine 09/08/2024 6:33 AM CDT BASIC METABOLIC PANEL, S/P Routine 09/08/2024 6:33 AM CDT PROTHROMBIN TIME (PT), P Routine 09/08/2024 4:33 AM CDT ADULT OXYGEN THERAPY Routine 09/07/2024 8:01 PM CDT ADULT OXYGEN THERAPY Routine 09/07/2024 8:01 PM CDT PROTHROMBIN TIME (PT), P Timed 09/07/2024 6:59 PM CDT CARDIAC CATHETERIZATION Routine 09/07/2024 5:36 PM CDT 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) CARDIAC CATHETERIZATION Routine 09/07/2024 5:36 PM CDT 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) ECG MONITOR RECORD 09/07/2024 4: 05 PM CDT ADULT OXYGEN THERAPY Routine 09/07/2024 8:01 AM CDT ADULT OXYGEN THERAPY Routine 09/07/2024 8:01 AM CDT LIPID PANEL, S Routine 09/07/2024 4:40 AM CDT IRON AND TOT IRON-BINDING CAPACITY, S/P Routine 09/07/2024 4:40 AM CDT THYROID-STIMULATING HORMONE-SENSITIVE (S-TSH) Routine 09/07/2024 4:40 AM CDT MAGNESIUM, S Routine 09/07/2024 4:40 AM CDT COMPREHENSIVE METABOLIC PANEL, S/P Routine 09/07/2024 4:40 AM CDT PROTHROMBIN TIME (PT), P Routine 09/07/2024 4:39 AM CDT CBC WITH DIFFERENTIAL, B Routine 09/07/2024 4:39 AM CDT HEMOGLOBIN A1C, B Routine 09/07/2024 4:3 9 AM CDT T3 (TRIIODOTHYRONINE), TOT, S Routine 09/07/2024 4:35 AM CDT T4 (THYROXINE), FREE, S Routine 09/07/2024 4:35 AM CDT ADULT OXYGEN THERAPY Routine 09/06/2024 8:01 PM CDT ADULT OXYGEN THERAPY Routine 09/06/2024 8:01 PM CDT (TTE) 2D ECHO DOPPLER COLOR Routine 09/06/2024 3:40 PM CDT US CAROTID BILATERAL RAD - Routine (most inpatients and all outpatients) 09/06/2024 12:35 PM CDT ADULT OXYGEN THERAPY Routine 09/06/2024 8:02 AM CDT ADULT OXYGEN THERAPY Routine 09/06/2024 8:02 AM CDT CAR CARDIAC DEVICE INTERROGATION STAT 09/06/2024 7:44 AM CDT NT-PRO B-TYPE NATRIURETIC PEPTIDE (BNP), S Routine 09/06/2024 7:21 AM CDT ADULT OXYGEN THERAPY Routine 09/06/2024 5:50 AM CDT ADULT OXYGEN THERAPY Routine 09/06/2024 5:50 AM CDT ADULT OXYGEN THERAPY Routine 09/06/2024 5:48 AM CDT ADULT OXYGEN THERAPY Routine 09/06/2024 5:48 AM CDT TROPONIN T, 2H/6H REFLEX, 5TH GEN, P Timed 09/06/2024 5:06 AM CDT PROTHROMBIN TIME (PT), P STAT 09/06/2024 5:06 AM CDT D-DIMER, P Routine 09/06/2024 5:06 AM CDT TROPONIN T, BASELINE, 5TH GEN, P STAT 09/06/2024 2:58 AM CDT GLUCOSE POCT, B STAT 09/06/2024 2:58 AM CDT CBC WITH DIFFERENTIAL, B STAT 09/06/2024 2:58 AM CDT BASIC METABOLIC PANEL, S/P STAT 09/06/2024 2:58 AM CDT ECG Routine 09/06/2024 2:47 AM CDT documented in this encounter Results * (ABNORMAL) Magnesium (09/10/2024 5:00 AM CDT) Magnesium, S 2.4(H) 1.7 - 2.3 mg/dL 09/10/2024 6:46 AM CDT DTL Blood (Blood, Venous) 09/10/2024 5:00 AM CDT 09/10/2024 6:15 AM CDT Raz López M.D. LAB BLOOD ADD-ON Final Result [facility] [address] [place] [address], [facility] [address] [place] [address] * (ABNORMAL) Basic Metabolic Panel (09/10/2024 5:00 AM CDT) Potassium, S 4.7 3.6 - 5.2 mmol/L 09/10/2024 6:46 AM CDT DTL Sodium, S 133(L) 135 - 145 mmol/L 09/10/2024 6:46 AM CDT DTL Chloride, S 97(L) 98 - 107 mmol/L 09/10/2024 6:46 AM CDT DTL Bicarbonate, S 25 22 - 29 mmol/L 09/10/2024 6:46 AM CDT DTL Anion Gap 11 7 - 15 09/10/2024 6:46 AM CDT DTL BUN (Blood Urea Nitrogen), S 28(H) 8 - 24 mg/dL 09/10/2024 6:46 AM CDT DTL Creatinine 1.70(H) 0.74 - 1.35 mg/dL 09/10/2024 6:46 AM CDT DTL Estimated GFR (eGFR) 39(L) >=60 mL/min/BSA 09/10/2024 6:46 AM CDT DTL Comment: Estimated GFR calculated using the 2020 CKD_EPI creatinine equation. Calcium, Total, S 8.8 8.8 - 10.2 mg/dL 09/10/2024 6:46 AM CDT DTL Glucose, S 100 70 - 140 mg/dL 09/10/2024 6:46 AM CDT DTL Blood (Blood, Venous) 09/10/2024 5:00 AM CDT 09/10/2024 6:15 AM CDT Raz López M.D. LAB BLOOD ADD-ON Final Result Performing Organization Address City/[facility]/ZIP Co de Phone Number [facility] [address] DTL [facility] [address] [place] [address] * (ABNORMAL) CBC without Differential (09/10/2024 5:00 AM CDT) Pathologist [facility] Hemoglobin 9.8(L) 13.2 - 16.6 g/dL 09/10/2024 6:07 AM CDT DTL Hematocrit 30.7(L) 38.3 - 48.6 % 09/10/2024 6:07 AM CDT DTL Erythrocytes 3.27(L) 4.35 - 5.65 x10(12)/L 09/10/2024 6:07 AM CDT DTL MCV 93.9 78.2 - 97.9 fL 09/10/2024 6:07 AM CDT DTL RBC Distrib Width 16.6(H) 11.8 - 14.5 % 09/10/2024 6:07 AM CDT DTL Platelet Count 194 135 - 317 x10(9)/L 09/10/2024 6:07 AM CDT DTL Leukocytes 5.8 3.4 - 9.6 x10(9)/L 09/10/2024 6:07 AM CDT DTL Blood (Blood, Venous) 09/10/2024 5:00 AM CDT 09/10/2024 6:00 AM CDT us Raz López M.D. LAB BLOOD ADD-ON Final Result [facility] [address] [place] [address], [facility] DTL [facility] [address] [place] [address] * (ABNORMAL) Prothrombin Time (PT) (09/10/2024 5:00 AM CDT) Prothrombin Time, P 19.2(H) 9.4 - 12.5 sec 09/10/2024 6:18 AM CDT DTL INR 1.7 0.9 - 1.1 09/10/2024 6:18 AM CDT DTL Comment: ----ADDITIONAL INFORMATION---- Standard intensity warfarin therapeutic range: 2.0 to 3.0 High intensity warfarin therapeutic range: 2.5 to 3.5 Blood (Blood, Venous) 09/10/2024 5:00 AM CDT 09/10/2024 6:01 AM CDT Marquita Lo M.D. LAB BLOOD ADD-ON Final Result [facility] [address] [place] [address], [facility] [address] [place] [address] * CT Cardiac Angiogram with Coronary Arteries with IV Contrast (09/09/2024 4:20 PM CDT) Anatomical Region Laterality Modality Cardiac, Cardiovascular RST LOS, Thoracic ARZ LOS, Cardiovascular FLA LOS N/A Computed Tomography, Compute d Tomography Impressions 09/09/2024 5:32 PM CDT 1. Minimum sub-2 mm intact fat plane between the cranial wall of the left main coronary artery and caudal wall of the severely dilated main pulmonary artery without extrinsic compression of the left main coronary artery in diastole and systole. 2. Severe calcified atherosclerotic plaque burden of the coronary arteries with multifocal severe luminal stenosis. Degree of luminal stenosis may be overestimated secondary to calcium blooming artifact. CAD-RADS category 4B/N/P4. 3. Multiple additional cardiovascular findings as detailed in the findings section. 4. Increased small left pleural effusion. 5. Otherwise, similar noncardiovascular findings, including dominant pulmonary nodule in the right lung base and lymphadenopathy in the setting of pulmonary emphysema. Narrative 09/09/2024 5:32 PM CDT EXAM: CT CARDIAC ANGIOGRAM WITH CORONARY ARTERIES WITH IV CONTRAST Including 3D image post-processing with or without AI assistance. COMPARISON: CT chest without IV contrast 04/19/2024. CORONARY FINDINGS: Image Quality: Partially diagnostic. Suboptimal luminal opacification of the coronary arteries. Blooming artifact from multifocal calcified atherosclerotic plaque burden may overestimate luminal stenosis. Origins/course: Conventional. Dominance: Right. Left Main Coronary: Patent. Minimum sub-2 mm intact fat plane between the cranial wall of the left main coronary artery and caudal wall of the main pulmonary artery without extrinsic compression of the left main coronary artery in diastole and systole (series 1000). Mild calcified atherosclerotic plaque burden results in up to mild luminal stenosis. Conventional bifurcation. Left Anterior Descending: Severe calcified atherosclerotic plaque burden. Up to moderate luminal stenosis in the proximal segment. Partially diagnostic mid segment with severe luminal stenosis in the dominant diagonal branch. Distal segment is below CTA size threshold. Left Circumflex: Severe calcified atherosclerotic plaque burden. Up to moderate luminal stenosis in the proximal segment. Up to severe luminal stenosis in the distal segment. Right Coronary Artery: Severe calcified atherosclerotic plaque burden. Up to moderate luminal stenosis in the proximal segment. Up to severe luminal stenosis of the mid segment. Up to severe luminal stenosis at the bifurcation into posterior descending and posterolateral branches. OTHER CARDIAC FINDINGS: Transvenous 2 chamber cardiac pacemaker. Pacemaker generator in the superior ventral right extrapleural chest wall. Pacemaker leads via right subclavian vein access with tips in the right atrial appendage apex and mid apical right ventricle along the interventricular septum, respectively. Normal left ventricular chamber size with D-shaped left morphology by visual estimate. Concentric left ventricular myocardial hypertrophy. Abnormal interventricular septal motion favored to be postsurgical. Preserved left ventricular global systolic function by visual estimate. Severe right ventricular chamber enlargement by visual estimate. Severely decreased and right ventricular global systolic function by visual estimate. Severe right and mild left biatrial chamber enlargement by visual estimate. No left atrial chamber or left atrial appendage noncalcified thrombus. Moderate multifocal crescentic calcification of the left atrial wall. Mechanical aortic valve replacement with normal cusp motion. Mild bulky mitral annular and anterior mitral leaflet calcification. Bulky calcification of the anterolateral greater than posteromedial papillary muscles. Postsurgical changes of tricuspid repair with annuloplasty. Normal variant 2 right and one left pulmonary veins drain to the left atrium. Central left superior and inferior pulmonary veins form a confluence prior to a common left atrial ostium. Moderate left and mild right central pulmonary vein crescentic mural calcification. Partially visualized postsurgical changes of ascending aortic graft replacement without evidence of complication. Ascending aortic graft is retrosternal with minimum submillimeter intact fat plane (series 7, image 4). Partially visualized thoracic aorta with up to moderate partially calcified atherosclerotic plaque burden in the descending thoracic aorta, which results in up to minimal luminal stenosis. Conventional course of the central right-sided SVC and suprahepatic IVC. Reflux of intravenous contrast into the severely dilated suprahepatic IVC. Severe fusiform dilatation of the main pulmonary artery, 46 mm. Scattered very mild, noncircumferential crescentic mural calcifications of scattered central pulmonary arteries most conspicuous for the right basilar pulmonary artery suggest chronic pulmonary emboli (series 7, image 64). No pericardial effusion. Anterior pericardium is immediately retrosternal. NON-CARDIAC FINDINGS: Increased now small simple right pleural effusion. No left pleural effusion. Partially visualized lungs with moderate upper lobe and paraseptal predominant pulmonary emphysema. Similar bilateral noncalcified solid pulmonary nodules, including dominant 15 mm greatest dimension nodule in the peripheral lateral right lung base (series 7, image 147), remeasured as 16 mm greatest dimension on prior series 4, prior image 583. Calcified pulmonary granulomas. Similar enlarged, noncalcified, right greater than left, mediastinal and hilar lymph nodes measuring up to 16 mm short axis in the right hilar chain (series 7, image 39). Partially visualized postsurgical changes of median sternotomy with intact sternal wires and united sternal fragments. Mild degenerative changes of the skeleton. New gaseous distention of the partially visualized transverse colon, 72 mm without mural thickening. CAD-RADS CATEGORIES: (based on most severe single lesion; applies to vessels >1.5 mm in diameter) 0: 0%, No stenosis 1: 1-24%, Minimal stenosis (or + remodeling without luminal stenosis) 2: 25-49%, Mild stenosis 3: 50-69%, Moderate stenosis 4A: 70-99%, Severe stenosis 4B: LM>49% or 3-vessel severe disease 5: 100%, Occluded N: Non-diagnostic study Plaque [place]: P1: Mild (CACS1-100/SIS1-2/1-2 vessels mild plaque) P2: Moderate ([id number]/SIS3-4/1-2 vessels moderate; 3 vessels mild plaque) P3: Severe ([id number]/SIS5-7/3 vessels moderate; 1 vessel severe plaque) P4: Extensive (CACS>999/SIS>7/2-3 vessels severe plaque) Modifiers: N: Non-diagnostic segment(s) HRP: High-Risk Plaque* S: Stent G: Graft (CAD-Rads applies to vessel segments distal to graft anastomosis) E: Exceptions *High-Risk Plaque = at least 2 of the following: + remodeling/<30 HU/spotty calcs/napkin-ring sign Procedure Note Josiane Nguyen M.D. - 09/09/2024 EXAM: CT CARDIAC ANGIOGRAM WITH CORONARY ARTERIES WITH IV CONTRAST Including 3D image post-processing with or without AI assistance. COMPARISON: CT chest without IV contrast 04/19/2024. CORONARY FINDINGS: Image Quality: Partially diagnostic. Suboptimal luminal opacification ofthe coronary arteries. Blooming artifact from multifocal calcifiedatherosclerotic plaque burden may overestimate luminal stenosis. Origins/course: Conventional. Dominance: Right. Left Main Coronary: Patent. Minimum sub-2 mm intact fat plane between thecranial wall of the left main coronary artery and caudal wall of the mainpulmonary artery without extrinsic compression of the left main coronaryartery in diastole and systole (series 1000). Mild calcified atherosclerotic plaque burden results in upto mild luminal stenosis. Conventional bifurcation. Left Anterior Descending: Severe calcified atherosclerotic plaque burden.Up to moderate luminal stenosis in the proximal segment. Partiallydiagnostic mid segment with severe luminal stenosis in the dominantdiagonal branch. Distal segment is below CTA size threshold. Left Circumflex: Severe calcified atherosclerotic plaque burden. Up tomoderate luminal stenosis in the proximal segment. Up to severe luminalstenosis in the distal segment. Right Coronary Artery: Severe calcified atherosclerotic plaque burden. Upto moderate luminal stenosis in the proximal segment. Up to severe luminalstenosis of the mid segment. Up to severe luminal stenosis at thebifurcation into posterior descending and posterolateral branches. OTHER CARDIAC FINDINGS: Transvenous 2 chamber cardiac pacemaker. Pacemaker generator in the superior ventral right extrapleural chestwall. Pacemaker leads via right subclavian vein access with tips in the rightatrial appendage apex and mid apical right ventricle along theinterventricular septum, respectively. Normal left ventricular chamber size with D-shaped left morphology byvisual estimate. Concentric left ventricular myocardial hypertrophy. Abnormal interventricular septal motion favored to be postsurgical. Preserved left ventricular global systolic function by visual estimate. Severe right ventricular chamber enlargement by visual estimate. Severely decreased and right ventricular global systolic function byvisual estimate. Severe right and mild left biatrial chamber enlargement by visualestimate. No left atrial chamber or left atrial appendage noncalcified thrombus. Moderate multifocal crescentic calcification of the left atrial wall. Mechanical aortic valve replacement with normal cusp motion. Mild bulky mitral annular and anterior mitral leaflet calcification. Bulky calcification of the anterolateral greater than posteromedialpapillary muscles. Postsurgical changes of tricuspid repair with annuloplasty. Normal variant 2 right and one left pulmonary veins drain to the leftatrium. Central left superior and inferior pulmonary veins form a confluence priorto a common left atrial ostium. Moderate left and mild right central pulmonary vein crescentic muralcalcification. Partially visualized postsurgical changes of ascending aortic graftreplacement without evidence of complication. Ascending aortic graft is retrosternal with minimum submillimeter intactfat plane (series 7, image 4). Partially visualized thoracic aorta with up to moderate partiallycalcified atherosclerotic plaque burden in the descending thoracic aorta,which results in up to minimal luminal stenosis. Conventional course of the central right-sided SVC and suprahepatic IVC. Reflux of intravenous contrast into the severely dilated suprahepaticIVC. Severe fusiform dilatation of the main pulmonary artery, 46 mm. Scattered very mild, noncircumferential crescentic mural calcifications ofscattered central pulmonary arteries most conspicuous for the rightbasilar pulmonary artery suggest chronic pulmonary emboli (series 7, image64). No pericardial effusion. Anterior pericardium is immediately retrosternal. NON-CARDIAC FINDINGS: Increased now small simple right pleural effusion. No left pleural effusion. Partially visualized lungs with moderate upper lobe and paraseptalpredominant pulmonary emphysema. Similar bilateral noncalcified solid pulmonary nodules, including [id number] mm greatest dimension nodule in the peripheral lateral right lung base(series 7, image 147), remeasured as 16 mm greatest dimension on priorseries 4, prior image 583. Calcified pulmonary granulomas. Similar enlarged, noncalcified, right greater than left, mediastinal andhilar lymph nodes measuring up to 16 mm short axis in the right hilarchain (series 7, image 39). Partially visualized postsurgical changes of median sternotomy with intactsternal wires and united sternal fragments. Mild degenerative changes of the skeleton. New gaseous distention of the partially visualized transverse colon, 72 mmwithout mural thickening. CAD-RADS CATEGORIES: (based on most severe single lesion; applies tovessels >1.5 mm in diameter) 0: 0%, No stenosis 1: 1-24%, Minimal stenosis (or + remodeling without luminal stenosis) 2: 25-49%, Mild stenosis 3: 50-69%, Moderate stenosis 4A: 70-99%, Severe stenosis 4B: LM>49% or 3-vessel severe disease 5: 100%, Occluded N: Non-diagnostic study Plaque [place]: P1: Mild (CACS1-100/SIS1-2/1-2 vessels mild plaque) P2: Moderate ([id number]/SIS3-4/1-2 vessels moderate; 3 vessels mildplaque) P3: Severe ([id number]/SIS5-7/3 vessels moderate; 1 vessel severeplaque) P4: Extensive (CACS>999/SIS>7/2-3 vessels severe plaque) Modifiers: N: Non-diagnostic segment(s) HRP: High-Risk Plaque* S: Stent G: Graft (CAD-Rads applies to vessel segments distal to graftanastomosis) E: Exceptions *High-Risk Plaque = at least 2 of the following: + remodeling/<30HU/spotty calcs/napkin-ring sign IMPRESSION: 1. Minimum sub-2 mm intact fat plane between the cranial wall of the leftmain coronary artery and caudal wall of the severely dilated mainpulmonary artery without extrinsic compression of the left main coronaryartery in diastole and systole. 2. Severe calcified atherosclerotic plaque burden of the coronaryarteries with multifocal severe luminal stenosis. Degree of luminalstenosis may be overestimated secondary to calcium blooming artifact.CAD-RADS category 4B/N/P4. 3. Multiple additional cardiovascular findings as detailed in thefindings section. 4. Increased small left pleural effusion. 5. Otherwise, similar noncardiovascular findings, including dominantpulmonary nodule in the right lung base and lymphadenopathy in the settingof pulmonary emphysema. us Raz HADLEY CT PROCEDURES Final Result * NM Lung Ventilation and Perfusion with SPECT CT (09/09/2024 1:54 PM CDT) Anatomical Region Laterality Modality Nuclear Medicine RST LOS, Nu clear Medicine ARZ LOS, Nuclear Medicine FLA LOS, Nuclear Medicine N/A Nuclear Med icine Impressions 09/09/2024 3:01 PM CDT 1. No scintigraphic findings for thromboembolic disease. 2. Small right pleural effusion has slightly increased in size since 04/19/2024. Narrative 09/09/2024 3:01 PM CDT EXAM: NM LUNG VENTILATION AND PERFUSION WITH SPECT CT RADIOPHARMACEUTICAL/MEDS: Route: inhalation xenon Xe 133 gas (Xe-133 Xenon),15.4 millicurie Route: intravenous technetium Tc 99m albumin aggregated injection (Tc-99m MAA) , 4.4 millicurie TECHNIQUE: Multiple projection planar lung ventilation and perfusion images obtained beginning immediately following radiotracer inhalation and 5 minutes following IV radiotracer injection respectively. Additional lung quantification was performed for differential perfusion and ventilation. Multiple projection SPECT perfusion images with low dose, non-contrast free-breathing CT for attenuation correction and anatomic localization (AC/AL) of the lungs were obtained. COMPARISON: Chest radiograph 09/05/2024, CT chest 04/19/2024 INDICATION: Severe pulmonary hypertension, assess for chronic pulmonary thromboembolic disease FINDINGS: Slightly heterogeneous radiotracer uptake on perfusion imaging which likely corresponds to areas of atelectasis and right pleural effusion seen on SPECT-CT. No wedge-shaped mismatched perfusion defects concerning for pulmonary embolism. Mild basilar air trapping on washout imaging which correlates with areas of emphysema seen on SPECT-CT. Incidental findings on SPECT-CT: Small right pleural effusion has slightly increased in size since 04/19/2024. Associated atelectasis. Enlarged central pulmonary artery, measuring up to 44 mm. Right ventricular and atrial enlargement with dilation of the upper IVC. Diffuse vascular calcification, including the coronary arteries and aorta. Grossly similar hilar and mediastinal lymphadenopathy compared to 04/19/2024. Sternotomy. AVR. Dual lead right chest wall pacemaker with tips terminating in the right atrium and ventricle. Small esophageal hiatal hernia. Unchanged right adrenal nodule. Unchanged dystrophic calcification in the posterior right hepatic lobe. Procedure Note Corrie Del Castillo M.D. - 09/09/2024 EXAM: NM LUNG VENTILATION AND PERFUSION WITH SPECT CT RADIOPHARMACEUTICAL/MEDS: Route: inhalation xenon Xe 133 gas (Xe-133 Xenon),15.4 millicurie Route: intravenous technetium Tc 99m albumin aggregated injection (Tc-99m MAA) , 4.4millicurie TECHNIQUE: Multiple projection planar lung ventilation and perfusionimages obtained beginning immediately following radiotracer inhalation and5 minutes following IV radiotracer injection respectively. Additional lungquantification was performed for differential perfusion and ventilation. Multiple projection SPECTperfusion images with low dose, non-contrast free-breathing CT forattenuation correction and anatomic localization (AC/AL) of the lungs wereobtained. COMPARISON: Chest radiograph 09/05/2024, CT chest 04/19/2024 INDICATION: Severe pulmonary hypertension, assess for chronic pulmonarythromboembolic disease FINDINGS: Slightly heterogeneous radiotracer uptake on perfusion imagingwhich likely corresponds to areas of atelectasis and right pleuraleffusion seen on SPECT-CT. No wedge-shaped mismatched perfusion defectsconcerning for pulmonary embolism. Mild basilar air trapping on washout imaging which correlates with areas ofemphysema seen on SPECT-CT. Incidental findings on SPECT-CT: Small right pleural effusion has slightlyincreased in size since 04/19/2024. Associated atelectasis. Enlarged central pulmonary artery, measuring up to 44 mm. Rightventricular and atrial enlargement with dilation of the upper IVC. Diffusevascular calcification, including the coronary arteries and aorta. Grosslysimilar hilar and mediastinal lymphadenopathy compared to 04/19/2024. Sternotomy. AVR. Dual lead rightchest wall pacemaker with tips terminating in the right atrium andventricle. Small esophageal hiatal hernia. Unchanged right adrenal nodule. Unchangeddystrophic calcification in the posterior right hepatic lobe. IMPRESSION: 1. No scintigraphic findings for thromboembolic disease. 2. Small right pleural effusion has slightly increased in size since04/19/2024. Raz López M.D. [facility] NM PROCEDURES Final Result * (ABNORMAL) Renal Function Panel (09/09/2024 9:42 AM CDT) Potassium, S 4.8 3.6 - 5.2 mmol/L 09/09/2024 10:58 AM CDT DTL Sodium, S 135 135 - 145 mmol/L 09/09/2024 10:58 AM CDT DTL Chloride, S 95(L) 98 - 107 mmol/L 09/09/2024 10:58 AM CDT DTL Bicarbonate, S 27 22 - 29 mmol/L 09/09/2024 10:58 AM CDT DTL Anion Gap 13 7 - 15 09/09/2024 10:58 AM CDT DTL BUN (Blood Urea Nitrogen), S 27(H) 8 - 24 mg/dL 09/09/2024 10:58 AM CDT DTL Creatinine 1.73(H) 0.74 - 1.35 mg/dL 09/09/2024 10:58 AM CDT DTL Estimated GFR (eGFR) 38(L) >=60 mL/min/BSA 09/09/2024 10:58 AM CDT DTL Comment: Estimated GFR calculated using the 2020 CKD_EPI creatinine equation. Calcium, Total, S 9.0 8.8 - 10.2 mg/dL 09/09/2024 10:58 AM CDT DTL Glucose, S 129 70 - 140 mg/dL 09/09/2024 10:58 AM CDT DTL Albumin, S 3.8 3.5 - 5.0 g/dL 09/09/2024 10:58 AM CDT DTL Phosphorus (Inorganic), S 3.2 2.5 - 4.5 mg/dL 09/09/2024 10:58 AM CDT DTL Blood (Blood, Venous) 09/09/2024 9:42 AM CDT 09/09/2024 10:35 AM CDT us Raz López M.D. LAB BLOOD ADD-ON Final Result [facility] [address] [place] [address], [facility] [address] [place] [address] * (ABNORMAL) CBC without Differential (09/09/2024 9:42 AM CDT) Hemoglobin 10.4(L) 13.2 - 16.6 g/dL 09/09/2024 10:33 AM CDT DTL Hematocrit 32.0(L) 38.3 - 48.6 % 09/09/2024 10:33 AM CDT DTL Erythrocytes 3.38(L) 4.35 - 5.65 x10(12)/L 09/09/2024 10:33 AM CDT DTL MCV 94.7 78.2 - 97.9 fL 09/09/2024 10:33 AM CDT DTL RBC Distrib Width 16.7(H) 11.8 - 14.5 % 09/09/2024 10:33 AM CDT DTL Platelet Count 198 135 - 317 x10(9)/L 09/09/2024 10:33 AM CDT DTL Leukocytes 7.3 3.4 - 9.6 x10(9)/L 09/09/2024 10:33 AM CDT DTL Blood (Blood, Venous) 09/09/2024 9:42 AM CDT 09/09/2024 10:21 AM CDT us Raz López M.D. LAB BLOOD ADD-ON Final Result [address] [address], [place] [address] * ECG 12 Lead (09/09/2024 7:54 AM CDT) Ventricular Rate ECG/Min 70 BPM MUSE QRSD Interval 170 ms MUSE QT Interval 490 ms MUSE QTC Interval 529 ms MUSE R Somers -71 degrees MUSE T Wave Somers 104 degrees MUSE 09/09/2024 7:54 AM CDT 09/09/2024 8:08 AM CDT Impressions MUSE - 09/09/2024 8:08 AM CDT Ventricular-paced rhythm Possible Atrial fibrillation Prolonged QT When compared with ECG of 09-Sep-2024 06:49, No significant change was found Reviewed by VALERIE Ribeiro Narrative Procedure Note Estuardo Villaseñor M.D. - 09/09/2024 IMPRESSION: Ventricular-paced rhythm Possible Atrial fibrillation Prolonged QT When compared with ECG of 09-Sep-2024 06:49, No significant change was found Reviewed by VALERIE Ribeiro Zhou Meredith M.D. ECG ORDERABLES Final Result Performing Organization Address [facility] de Phone Number MUSE NA * ECG 12 Lead (09/09/2024 6:49 AM CDT) Ventricular Rate ECG/Min 70 BPM MUSE QRSD Interval 170 ms MUSE QT Interval 488 ms MUSE QTC Interval 527 ms MUSE R Somers -70 degrees MUSE T Wave Somers 104 degrees MUSE 09/09/2024 6:49 AM CDT 09/09/2024 7:32 AM CDT Impressions MUSE - 09/09/2024 7:14 AM CDT Ventricular-paced rhythm Probable Atrial flutter Prolonged QT When compared with ECG of 06-Sep-2024 02:47, No significant change in data has occurred Revised Report Narrative Procedure Note Estuardo Villaseñor M.D. - 09/09/2024 IMPRESSION: Ventricular-paced rhythm Probable Atrial flutter Prolonged QT When compared with ECG of 06-Sep-2024 02:47, No significant change in data has occurred Revised Report Raz López M.D. ECG ORDERABLES Edited Result - Final Performing Organization Address [facility] Co de Phone Number MUSE NA * (ABNORMAL) Prothrombin Time (PT) (09/09/2024 5:18 AM CDT) Prothrombin Time, P 19.2(H) 9.4 - 12.5 sec 09/09/2024 6:18 AM CDT DTL INR 1.7 0.9 - 1.1 09/09/2024 6:18 AM CDT DTL Comment: ----ADDITIONAL INFORMATION---- Standard intensity warfarin therapeutic range: 2.0 to 3.0 High intensity warfarin therapeutic range: 2.5 to 3.5 Blood (Blood, Venous) 09/09/2024 5:18 AM CDT 09/09/2024 5:54 AM CDT Marquita Lo M.D. LAB BLOOD ADD-ON Final Result [facility] [address] [place] [address], [facility] DTL [facility] [address] [place] [address] * (ABNORMAL) Basic Metabolic Panel (09/08/2024 6:33 AM CDT) Potassium, S 5.1 3.6 - 5.2 mmol/L 09/08/2024 8:08 AM CDT DTL Sodium, S 134(L) 135 - 145 mmol/L 09/08/2024 8:08 AM CDT DTL Chloride, S 102 98 - 107 mmol/L 09/08/2024 8:08 AM CDT DTL Bicarbonate, S 22 22 - 29 mmol/L 09/08/2024 8:08 AM CDT DTL Anion Gap 10 7 - 15 09/08/2024 8:08 AM CDT DTL BUN (Blood Urea Nitrogen), S 28(H) 8 - 24 mg/dL 09/08/2024 8:08 AM CDT DTL Creatinine 1.45(H) 0.74 - 1.35 mg/dL 09/08/2024 8:08 AM CDT DTL Estimated GFR (eGFR) 48(L) >=60 mL/min/BSA 09/08/2024 8:08 AM CDT DTL Comment: Estimated GFR calculated using the 2020 CKD_EPI creatinine equation. Calcium, Total, S 8.8 8.8 - 10.2 mg/dL 09/08/2024 8:08 AM CDT DTL Glucose, S 105 70 - 140 mg/dL 09/08/2024 8:08 AM CDT DTL Blood (Blood, Venous) 09/08/2024 6:33 AM CDT 09/08/2024 7:33 AM CDT Marquita Lo M.D. LAB BLOOD ADD-ON Final Result Performing Organization Address City/[facility]/ZIP Co de Phone Number [facility] [address] [place] [address], [facility] [address] [place] [address] * (ABNORMAL) CBC without Differential (09/08/2024 6:33 AM CDT) Hemoglobin 10.1(L) 13.2 - 16.6 g/dL 09/08/2024 7:35 AM CDT DTL Hematocrit 32.0(L) 38.3 - 48.6 % 09/08/2024 7:35 AM CDT DTL Erythrocytes 3.32(L) 4.35 - 5.65 x10(12)/L 09/08/2024 7:35 AM CDT DTL MCV 96.4 78.2 - 97.9 fL 09/08/2024 7:35 AM CDT DTL RBC Distrib Width 16.6(H) 11.8 - 14.5 % 09/08/2024 7:35 AM CDT DTL Platelet Count 189 135 - 317 x10(9)/L 09/08/2024 7:35 AM CDT DTL Leukocytes 7.0 3.4 - 9.6 x10(9)/L 09/08/2024 7:35 AM CDT DTL Blood (Blood, Venous) 09/08/2024 6:33 AM CDT 09/08/2024 7:22 AM CDT Marquita Lo M.D. LAB BLOOD ADD-ON Final Result [facility] [address] [place] [address], [facility] [address] [place] [address] * (ABNORMAL) Prothrombin Time (PT) (09/08/2024 4:33 AM CDT) Prothrombin Time, P 18.8(H) 9.4 - 12.5 sec 09/08/2024 5:57 AM CDT DTL INR 1.7 0.9 - 1.1 09/08/2024 5:57 AM CDT DTL Comment: ----ADDITIONAL INFORMATION---- Standard intensity warfarin therapeutic range: 2.0 to 3.0 High intensity warfarin therapeutic range: 2.5 to 3.5 Blood (Blood, Venous) 09/08/2024 4:33 AM CDT 09/08/2024 5:28 AM CDT Marquita Lo M.D. LAB BLOOD ADD-ON Final Result Performing Organization Address [facility]/ZIP Co de Phone Number [address] [place] [address] * (ABNORMAL) Prothrombin Time (PT) (09/07/2024 6:59 PM CDT) Pathologist [facility] Prothrombin Time, P 18.6(H) 9.4 - 12.5 sec 09/07/2024 7:44 PM CDT DTL INR 1.7 0.9 - 1.1 09/07/2024 7:44 PM CDT DTL Comment: ----ADDITIONAL INFORMATION---- Standard intensity warfarin therapeutic range: 2.0 to 3.0 High intensity warfarin therapeutic range: 2.5 to 3.5 Blood (Blood, Venous) 09/07/2024 6:59 PM CDT 09/07/2024 7:22 PM CDT Marquita Lo M.D. LAB BLOOD ADD-ON Final Result Performing Organization Address City/[facility]/ZIP [place] [address], [place] [address] * RIGHT HEART CATHETERIZATION, DRUG STUDY (09/07/2024 5:36 PM CDT) Anatomical Region Laterality Modality X-Ray Angiograph y 09/07/2024 4:42 PM CDT Impressions 09/07/2024 6:03 PM CDT indicative of severely elevated RA pressure with v wave of tricuspid regurgitation, mildly elevated wedge, normal cardiac index, moderately elevated PVR. Nitric oxide slightly reduced PA pressure and PVR but some rise in wedge. RADIATION DOSE DATA Procedure cumulative skin dose (mGy): 34.45 Procedure cumulative dose area product (Gy-cm2): 3.29 Fluoro Time (Min): 11.05 For the complete report, see the Order-Level Documents. Narrative 09/07/2024 6:03 PM CDT For the complete report, see the Order-Level Documents. PROCEDURE TYPES 1. HEART CATHETERIZATION - RIGHT 2. DRUG STUDY FINAL DIAGNOSIS 1. Severe pulmonary hypertension 2. Tricuspid valve regurgitation 3. Drug intervention PRE-PROCEDURE DIAGNOSIS 1. 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 we could not pass a wire past that point from the right IJ vein. We then proceeded via Left IJ vein with mild difficulty. HEMODYNAMICS SUMMARY Baseline RA 18 with v wave PA 76/26/44 PAWP 16 CO/CI 5.3/2.7 PVR 5.3 RAE systemic sat 89% PA sat 46% Nitric oxide PA 74/24/41 PAWP 22 CO/CI 5.3/2.7 PVR 3.6 RAE systemic sat 91% PA sat 48% Procedure Note Mynor Perez M.D. - 09/07/2024 For the complete report, see the Order-Level Documents. PROCEDURE TYPES 1. HEART CATHETERIZATION - RIGHT 2. DRUG STUDY FINAL DIAGNOSIS 1. Severe pulmonary hypertension 2. Tricuspid valve regurgitation 3. Drug intervention PRE-PROCEDURE DIAGNOSIS 1. 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 we could not pass a wire past that pointfrom the right IJ vein. We then proceeded via Left IJ vein with milddifficulty. HEMODYNAMICS SUMMARY Baseline RA 18 with v wave PA 76/26/44 PAWP 16 CO/CI 5.3/2.7 PVR 5.3 WUsystemic sat 89% PA sat 46% Nitric oxide PA 74/24/41 PAWP 22 CO/CI 5.3/2.7PVR 3.6 RAE systemic sat 91% PA sat 48% Findings indicative of severely elevated RA pressure with v wave oftricuspid regurgitation, mildly elevated wedge, normal cardiac index,moderately elevated PVR. Nitric oxide slightly reduced PA pressure andPVR but some rise in wedge. RADIATION DOSE DATA Procedure cumulative skin dose (mGy): 34.45 Procedure cumulative dose area product (Gy-cm2): 3.29 Fluoro Time (Min): 11.05 For the complete report, see the Order-Level Documents. Marquita Lo M.D. CV CARDIAC CATH PROCEDURES Richa rick Result * ECG Monitor Record (09/07/2024 4:05 PM CDT) Narrative 09/07/2024 4:05 PM CDT Ordered by an unspecified provider. Default Authenticator [facility]ane ECG ORDERABLES Final Result * (ABNORMAL) S-TSH (Thyroid-Stimulating Hormone - Sensitive) (09/07/2024 4:40 AM CDT) TSH, Sensitive 5.1(H) 0.3 - 4.2 mIU/L 09/07/2024 6:00 AM CDT DTL Blood (Blood, Venous) 09/07/2024 4:40 AM CDT 09/07/2024 5:36 AM CDT Myrtle Alejandro APRN C.N.P., M.S.N. LAB BLOOD ADD-ON Final Result [facility] [address] [place] [address], [facility] [address] [place] [address] * (ABNORMAL) Magnesium (09/07/2024 4:40 AM CDT) Magnesium, S 2.5(H) 1.7 - 2.3 mg/dL 09/07/2024 6:00 AM CDT DTL Blood (Blood, Venous) 09/07/2024 4:40 AM CDT 09/07/2024 5:36 AM CDT Myrtle Alejandro APRN, C.N.P., M.S.N. LAB BLOOD ADD-ON Final Result Performing Organization Address [facility] de Phone Number [facility] [address] [place] [address] * Iron and Total Iron-Binding Capacity (09/07/2024 4:40 AM CDT) Iron 57 50 - 150 mcg/dL 09/07/2024 6:00 AM CDT DTL Total Iron Binding Capacity 320 250 - 400 mcg/dL 09/07/2024 6:00 AM CDT DTL Percent Saturation 18 14 - 50 % 09/07/2024 6:00 AM CDT DTL Blood (Blood, Venous) 09/07/2024 4:40 AM CDT 09/07/2024 5:36 AM CDT Myrtle Alejandro APRN, C.N.P., M.S.N. LAB BLOOD ADD-ON Final Result Performing Organization Address [facility] de Phone Number [facility] [address] [facility] 200 [place] [address] * Lipid Panel (09/07/2024 4:40 AM CDT) Triglycerides 48 mg/dL 09/07/2024 6:00 AM CDT DTL Comment: ----REFERENCE VALUE---- Normal: <150 mg/dL Borderline High: 150-199 mg/dL High: 200-499 mg/dL Very High: > or =500 mg/dL Cholesterol, Total 139 mg/dL 2024 6:00 AM CDT DTL Comment: ----REFERENCE VALUE---- Desirable: < 200 mg/dL Borderline High: 200 - 239 mg/dL High: > or = 240 mg/dL Cholesterol, LDL, Calculated 72 mg/dL 09/07/2024 6:00 AM CDT DTL Comment: ----REFERENCE VALUE---- Desirable: <100 mg/dL Above Desirable: 100-129 mg/dL Borderline High: 130-159 mg/dL High: 160-189 mg/dL Very High: >=190 mg/dL ----ADDITIONAL INFORMATION---- LDL cholesterol calculated using the Maynard/NIH equation. Cholesterol, HDL, S 56 >=40 mg/dL 09/07/2024 6:00 AM CDT DTL Cholesterol, Non-HDL, Calculated 83 mg/dL 09/07/2024 6:00 AM CDT DTL Comment: ----REFERENCE VALUE---- Desirable: <130 mg/dL Above Desirable: 130-159 mg/dL Borderline High: 160-189 mg/dL High: 190-219 mg/dL Very High: > or =220 mg/dL Fasting (8 HR or more) Yes 09/07/2024 4:40 AM CDT DTL Blood (Blood, Venous) 09/07/2024 4:40 AM CDT 09/07/2024 5:36 AM CDT Courtney Faulkner APRN.N.P., M.S.N. LAB BLOOD ADD-ON Final Result [facility] [address] [place] [address], [facility] [address] [place] [address] * (ABNORMAL) Comprehensive Metabolic Panel (09/07/2024 4:40 AM CDT) Potassium, S 4.7 3.6 - 5.2 mmol/L 09/07/2024 6:00 AM CDT DTL Sodium, S 135 135 - 145 mmol/L 09/07/2024 6:00 AM CDT DTL Chloride, S 102 98 - 107 mmol/L 09/07/2024 6:00 AM CDT DTL Bicarbonate, S 23 22 - 29 mmol/L 09/07/2024 6:00 AM CDT DTL Anion Gap 10 7 - 15 09/07/2024 6:00 AM CDT DTL BUN (Blood Urea Nitrogen), S 31(H) 8 - 24 mg/dL 09/07/2024 6:00 AM CDT DTL Creatinine 1.54(H) 0.74 - 1.35 mg/dL 09/07/2024 6:00 AM CDT DTL Estimated GFR (eGFR) 44(L) >=60 mL/min/BS A 09/07/2024 6:00 AM CDT DTL Comment: Estimated GFR calculated using the 2020 CKD_EPI creatinine equation. Calcium, Total, S 8.6(L) 8.8 - 10.2 mg/dL 09/07/2024 6:00 AM CDT DTL Glucose, S 102 70 - 140 mg/dL 09/07/2024 6:00 AM CDT DTL Protein, Total, S 6.3 6.3 - 7.9 g/dL 09/07/2024 6:00 AM CDT DTL Albumin, S 3.9 3.5 - 5.0 g/dL 09/07/2024 6:00 AM CDT DTL Aspartate Aminotransferase (AST), S 25 8 - 48 U/L 09/07/2024 6:00 AM CDT DTL Alkaline Phosphatase, S 135(H) 40 - 129 U/L 09/07/2024 6:00 AM CDT DTL Alanine Aminotransferase (ALT), S 12 7 - 55 U/L 09/07/2024 6:00 AM CDT DTL Bilirubin, Total, S 1.3(H) 0.0 - 1.2 mg/dL 09/07/2024 6:00 AM CDT DTL Blood (Blood, Venous) 09/07/2024 4:40 AM CDT 09/07/2024 5:36 AM CDT us Myrtle Alejandro APRN, C.N.P., M.S.N. LAB BLOOD ADD-ON Final Result [facility] [id number] [place] [address] [address] * (ABNORMAL) Prothrombin Time (PT) (09/07/2024 4:39 AM CDT) [facility] Prothrombin Time, P 23.0(H) 9.4 - 12.5 sec 09/07/2024 5:38 AM CDT DTL INR 2.1 0.9 - 1.1 09/07/2024 5:38 AM CDT DTL Comment: ----ADDITIONAL INFORMATION---- Standard intensity warfarin therapeutic range: 2.0 to 3.0 High intensity warfarin therapeutic range: 2.5 to 3.5 Blood (Blood, Venous) 09/07/2024 4:39 AM CDT 09/07/2024 5:21 AM CDT us Marquita Lo M.D. LAB BLOOD ADD-ON Final Result [facility] 200 [place], [place] [id number] [place] [address] * (ABNORMAL) CBC with Differential, Blood (09/07/2024 4:39 AM CDT) [facility] Hemoglobin 9.5(L) 13.2 - 16.6 g/dL 09/07/2024 5:29 AM CDT DTL Hematocrit 29.9(L) 38.3 - 48.6 % 09/07/2024 5:29 AM CDT DTL Erythrocytes 3.16(L) 4.35 - 5.65 x10(12)/L 09/07/2024 5:29 AM CDT DTL MCV 94.6 78.2 - 97.9 fL 09/07/2024 5:29 AM CDT DTL RBC Distrib Width 16.6(H) 11.8 - 14.5 % 09/07/2024 5:29 AM CDT DTL Platelet Count 188 135 - 317 x10(9)/L 09/07/2024 5:29 AM CDT DTL Leukocytes 6.5 3.4 - 9.6 x10(9)/L 09/07/2024 5:29 AM CDT DTL Neutrophils 5.31 1.56 - 6.45 x10(9)/L 09/07/2024 5:29 AM CDT DHPM Lymphocytes 0.41(L) 0.95 - 3.07 x10(9)/L 09/07/2024 5:29 AM CDT DTL Monocytes 0.62 0.26 - 0.81 x10(9)/L 09/07/2024 5:29 AM CDT DTL Eosinophils 0.11 0.03 - 0.48 x10(9)/L 09/07/2024 5:29 AM CDT DTL Basophils 0.05 0.01 - 0.08 x10(9)/L 09/07/2024 5:29 AM CDT DTL Blood (Blood, Venous) 09/07/2024 4:39 AM CDT 09/07/2024 5:22 AM CDT Courtney Faulkner APRN.N.P., M.S.N. LAB BLOOD ADD-[place] [address], [facility] DTL [facility] 200 [place] [address] * (ABNORMAL) Hemoglobin A1c (09/07/2024 4:39 AM CDT) Hemoglobin A1c, B 6.4(H) 4.0 - 5.6 % 09/07/2024 5:54 AM CDT DTL Comment: Hemoglobin A1c values of 5.7-6.4 percent indicate an increased risk for developing diabetes mellitus. In diabetic patients, HbA1c goals should be discussed with healthcare provider. Blood (Blood, Venous) 09/07/2024 4:39 AM CDT 09/07/2024 5:22 AM CDT Myrtle Alejandro APRN, C.N.P., M.S.N. LAB BLOOD ADD-ON Final Result Performing Organization Address City/[facility]/ZIP Co de Phone Number [facility] [address] [place] [address] * (ABNORMAL) T3 (Triiodothyronine), Total (09/07/2024 4:35 AM CDT) T3 (Triiodothyroni ne), Total, S 60(L) 80 - 200 ng/dL 09/07/2024 8:48 AM CDT DTL Blood 09/07/2024 4:35 AM CDT 09/07/2024 8:13 AM CDT Deanne Kilpatrick M.D., M.S. LAB BLOOD ADD-ON F inal Result Performing Organization Address City/[facility]/ZIP Co de Phone Number [facility] [address] [place], [place] [id number] [place] [address] [address] [place] [address] * T4 (Thyroxine), Free (09/07/2024 4:35 AM CDT) T4 (Thyroxine), Free, S 1.1 0.9 - 1.7 ng/dL 09/07/2024 8:48 AM CDT DTL Blood (Blood, Venous) 09/07/2024 4:35 AM CDT 09/07/2024 8:13 AM CDT Marquita Lo M.D. LAB BLOOD ADD-ON Final Result Performing Organization Address City/[facility]/ZIP Co de Phone Number [facility] [address] [place] [address], [facility] [address] [place] [address] * (TTE) 2D ECHO DOPPLER COLOR (09/06/2024 3:40 PM CDT) Ejection Fraction 63 MC CV EIMS LV End-Diastolic Diameter 50 MC CV EIMS LV End-Systolic Diameter 32 MC CV EIMS MV E Velocity 0.6 MC CV EIMS MV e' Velocity Medial 0.05 MC CV EIMS MV E/e' Medial 12 MC CV EIMS Left ventricular stroke volume index 40 MC CV EIMS Cardiac Output 5.48 MC CV EIMS Cardiac Index 2.8 MC CV EIMS TAPSE 4 MC CV EIMS Tricuspid Annular S 0.06 MC CV EIMS RV Free Wall Strain -12 MC CV EIMS TR Vmax 3.8 MC CV EIMS Estimated RA Pressure (Echo RAP) 20 MC CV EIMS RV Systolic Pressure (with Echo RAP) 78 MC CV EIMS Anatomical Region Laterality Modality Echocardiography 09/06/2024 2:27 PM CDT Impressions 09/06/2024 5:21 PM CDT Echo performed at the patient's bedside. Echocardiogram performed per left ventricular function protocol. Last full echocardiogram performed 04/21/2024. LEFT VENTRICLE:Normal left ventricular chamber size. Calculated 2-D linear left ventricular ejection fraction 63%. No dynamic left ventricular outflow tract obstruction at rest or with Valsalva. Abnormal ventricular septal motion - post-operative without other regional wall motion abnormalities. Indeterminate left ventricular filling pressure. RIGHT VENTRICLE:Severely enlarged right ventricular chamber size. Severely reduced right ventricular systolic function. Estimated right ventricular systolic pressure 78 mmHg (right atrial pressure of 20 mmHg). Averaged right ventricular free wall longitudinal peak systolic strain is -12% (normal </= -25%). ATRIA:Mildly enlarged left atrial size by visual estimate. Severely enlarged right atrial size by visual estimate. 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 Trivial aortic valve prosthetic regurgitation. No aortic valve periprosthetic regurgitation. Thickened mitral valve. Mildly calcified mitral annulus. Mild mitral valve regurgitation. Pulmonary valve not well visualized. Status post tricuspid valve repair with 28 mm Carbo-Medics AnnuloFlex band (01-NOV-2014). Tricuspid valve diastolic mean Doppler gradient 2 mmHg (heart rate 71 BPM). Severe tricuspid valve regurgitation. OTHER ECHO FINDINGS:Severely enlarged inferior vena cava size with no inspiratory collapse. Device lead (s) identified in right atrium and right ventricle. No intracardiac mass or thrombus, but the left atrial appendage cannot be visualized adequately with transthoracic echo to exclude thrombus in this location. Tiny posterior pericardial effusion. For the complete report, see the Order-Level Documents. Narrative 09/06/2024 5:21 PM CDT For the complete report, see the Order-Level Documents. Hemodynamics Heart Rate: 70 BPM Blood Pressure: 118 / 66 mmHg ECG: Atrial flutter, Dual Chamber Pacemaker Final Impressions 1. Severely enlarged right ventricular chamber size with severely reduced systolic function. Averaged right ventricular free wall longitudinal peak systolic strain is -12% (normal </= -25%). 2. Estimated right ventricular systolic pressure 78 mmHg (right atrial pressure of 20 mmHg). 3. Status post tricuspid valve repair with 28 mm Carbo-Medics AnnuloFlex band (01-NOV-2014). 4. Severe tricuspid valve regurgitation. Likely due to combination of annular dilatation and device lead impingement. 5. Tricuspid valve diastolic mean Doppler gradient 2 mmHg (heart rate 71 BPM). 6. 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 7. Aortic valve prosthetic leaflet motion not well visualized. Unable to measure mean gradient due to challenging Doppler alignment. 8. Normal left ventricular chamber size. Calculated ejection fraction 63%. 9. Abnormal ventricular septal motion - post-operative without other regional wall motion abnormalities. 10. Severely enlarged inferior vena cava size with no inspiratory collapse. 11. Tiny posterior pericardial effusion. 12. Compared to the report of 04/21/2024 no significant change has occurred. Side by side comparison of images performed. Procedure Note Ilia Lemus M.D. - 09/06/2024 For the complete report, see the Order-Level Documents. Hemodynamics Heart Rate: 70 BPM Blood Pressure: 118 / 66 mmHg ECG: Atrial flutter, Dual Chamber Pacemaker Final Impressions 1. Severely enlarged right ventricular chamber size with severely reducedsystolic function. Averaged right ventricular free wall longitudinal peaksystolic strain is -12% (normal </= -25%). 2. Estimated right ventricular systolic pressure 78 mmHg (right atrialpressure of 20 mmHg). 3. Status post tricuspid valve repair with 28 mm Carbo-Medics AnnuloFlexband (01-NOV-2014). 4. Severe tricuspid valve regurgitation. Likely due to combination ofannular dilatation and device lead impingement. 5. Tricuspid valve diastolic mean Doppler gradient 2 mmHg (heart rate 71BPM). 6. Status post 25 mm Carbo-Medics mechanical aortic valve prosthesis withHemashield ascending aorta graft (10-SEP-2007). 7. Aortic valve prosthetic leaflet motion not well visualized. Unable tomeasure mean gradient due to challenging Doppler alignment. 8. Normal left ventricular chamber size. Calculated ejection [id number]%. 9. Abnormal ventricular septal motion - post-operative without otherregional wall motion abnormalities. 10. Severely enlarged inferior vena cava size with no inspiratorycollapse. 11. Tiny posterior pericardial effusion. 12. Compared to the report of 04/21/2024 no significant change hasoccurred. Side by side comparison of images performed. Findings Echo performed at the patient's bedside. Echocardiogram performed per leftventricular function protocol. Last full echocardiogram [id number]/19/2024. LEFT VENTRICLE:Normal left ventricular chamber size. Calculated 2-D linearleft ventricular ejection fraction 63%. No dynamic left ventricularoutflow tract obstruction at rest or with Valsalva. Abnormal ventricularseptal motion - post-operative without other regional wall motionabnormalities. Indeterminate left ventricular filling pressure. RIGHT VENTRICLE:Severely enlarged right ventricular chamber size. Severelyreduced right ventricular systolic function. Estimated right ventricularsystolic pressure 78 mmHg (right atrial pressure of 20 mmHg). Averagedright ventricular free wall longitudinal peak systolic strain is -12%(normal </= -25%). ATRIA:Mildly enlarged left atrial size by visual estimate. Severelyenlarged right atrial size by visual estimate. CARDIAC VALVES:Status post 25 mm Carbo-Medics mechanical aortic valveprosthesis with Hemashield ascending aorta graft (10-SEP-2007). Trivialaortic valve prosthetic regurgitation. No aortic valve periprostheticregurgitation. Thickened mitral valve. Mildly calcified mitral annulus.Mild mitral valve regurgitation. Pulmonary valve not well visualized.Status post tricuspid valve repair with 28 mm Carbo-Medics AnnuloFlex band(01-NOV-2014). Tricuspid valve diastolic mean Doppler gradient 2 mmHg(heart rate 71 BPM). Severe tricuspid valve regurgitation. OTHER ECHO FINDINGS:Severely enlarged inferior vena cava size with noinspiratory collapse. Device lead (s) identified in right atrium and rightventricle. No intracardiac mass or thrombus, but the left atrial appendagecannot be visualized adequately with transthoracic echo to excludethrombus in this location. Tiny posterior pericardial effusion. For the complete report, see the Order-Level Documents. us Marquita Lo M.D. CV ECHO PROCEDURES Final Result * US Carotid Bilateral (09/06/2024 12:35 PM CDT) Anatomical Region Laterality Modality Head and Neck, Ultrasound RS T LOS, Ultrasound ARZ LOS, Neuroradiology FLA LOS, Procedural, Vascular Interventional NWWI LOS Bilateral Ultrasound Impressions 09/06/2024 12:39 PM CDT Bilateral carotid arterial systems are negative for hemodynamically significant stenosis. The right ICA has elevated velocity consistent with a 50-69% stenosis. Narrative 09/06/2024 12:39 PM CDT EXAM: US CAROTID BILATERAL Exam performed with color and spectral Doppler analysis. COMPARISON: None. FINDINGS: RIGHT: Moderate atheromatous plaque in the carotid bifurcation. Doppler evaluation shows no evidence of significant ICA, ECA, or CCA stenosis. Peak systolic velocity of 148 cm/s in the ICA consistent with a 50-69% stenosis. Normal flow direction in the vertebral artery. LEFT: Mild atheromatous plaque in the carotid bifurcation. Doppler evaluation shows no evidence of significant ICA, ECA, or CCA stenosis. Normal flow direction in the vertebral artery. VELOCITIES (cm/sec) Right CCA *psv: 57 cm/s Right ICA psv: 148 cm/s Right ICA edv: 14 cm/s Right ECA psv: 103 cm/s Right ICA/CCA: 2.6 Left CCA *psv: 71 cm/s Left ICA psv: 98 cm/s Left ICA edv: 11 cm/s Left ECA psv: 150 cm/s Left ICA/CCA: 1.4 *mid/distal (non-diseased) Measurement of a carotid stenosis, if present, is based on velocity parameters that compare the residual internal carotid luminal diameter with that of the normal distal ICA in accordance with [place] Symptomatic Carotid Endarterectomy Trial (NASCET). Procedure Note David Cash M.D. - 09/06/2024 EXAM: US CAROTID BILATERAL Exam performed with color and spectral Doppler analysis. COMPARISON: None. FINDINGS: RIGHT: Moderate atheromatous plaque in the carotid bifurcation. Dopplerevaluation shows no evidence of significant ICA, ECA, or CCA stenosis.Peak systolic velocity of 148 cm/s in the ICA consistent with a 50-69%stenosis. Normal flow direction in the vertebral artery. LEFT: Mild atheromatous plaque in the carotid bifurcation. Dopplerevaluation shows no evidence of significant ICA, ECA, or CCA stenosis.Normal flow direction in the vertebral artery. VELOCITIES (cm/sec) Right CCA *psv: 57 cm/s Right ICA psv: 148 cm/s Right ICA edv: 14 cm/s Right ECA psv: 103 cm/s Right ICA/CCA: 2.6 Left CCA *psv: 71 cm/s Left ICA psv: 98 cm/s Left ICA edv: 11 cm/s Left ECA psv: 150 cm/s Left ICA/CCA: 1.4 *mid/distal (non-diseased) Measurement of a carotid stenosis, if present, is based on velocityparameters that compare the residual internal carotid luminal diameterwith that of the normal distal ICA in accordance with North AmericanSymptomatic Carotid Endarterectomy Trial (NASCET). IMPRESSION: Bilateral carotid arterial systems are negative for hemodynamicallysignificant stenosis. The right ICA has elevated velocity consistent witha 50-69% stenosis. Marquita Lo M.D. [facility] US PROCEDURES Final Result * CARDIOVASCULAR IMPLANTABLE ELECTRONIC DEVICE - NO CHARGE (09/06/2024 7:44 AM CDT) Date Time Interrogation Session [id number] [facility] Implantable Pulse Generator Sales Administration Specialist [facility] Implantable Pulse Generator Type Pacemaker [facility] Implantable Pulse Generator Model L321 [facility] Implantable Pulse Generator Serial Number [id number] [facility] Implantable Pulse Generator Implant Date 20160103 [facility] Abelino Statistic RA Percent Paced 0.00 [facility] Abelino Statistic RV Percent Paced 99.00 [facility] Lead Channel Setting Sensing Sensitivity 0.15 [facility] Lead Channel Measurements Date and Time 20240803 [facility] Lead Channel Setting Sensing Sensitivity 4.00 [facility] Lead Channel Impedance Value 1,205 [facility] Lead Channel Pacing Threshold Amplitude 1.800 [facility] Lead Channel Pacing Threshold Pulse Width 0.4 [facility] Lead Channel Measurements Date and Time 20240803 [facility] Lead Channel Setting Pacing Amplitude 2.400 [facility] Lead Channel Setting Pacing Pulse Width 0.4 [facility] Abelino Setting Mode (NBG Code) VVIR [facility] Ventricular chambers paced during BRICKMASON SUPERVISOR pacing. RV [facility]ino Setting Lower Rate Limit 70 [facility]ino Setting AT Mode Switch Rate 170 [facility]ino Setting Maximum Sensor Rate 110 [facility] Zone Setting Type Category VT [facility] Murj Rate 1 160 [facility] Zone Setting Status Monitor [facility] Murj Zone ID 1 [facility] Implantable Lead Sales Administration Specialist Guidant [facility] Implantable Lead Model 4086 Flextend [facility] Implantable Lead Location Right Atrium [facility] Implantable Lead Connection Status Connected [facility] Implantable Lead Serial Number [id number] [facility] Implantable Lead Implant Date 20041129 [facility] Implantable Lead Special Function Lead length: 45.00 cm [facility] Implantable Lead Sales Administration Specialist Guid[employer] [facility] Implantable Lead Model 4087 Flextend [facility] Implantable Lead Location Right Ventricle [facility] Implantable Lead Connection Status Connected [facility] Implantable Lead Serial Number [id number] [facility] Implantable Lead Implant Date 20041129 [facility] Implantable Lead Special Function Lead length: 52.00 cm [facility] Anatomical Region Laterality Modality Other 09/10/2024 12:2 1 AM CDT Impressions 09/10/2024 12:21 AM CDT Encounter Impression: Title: Hospital Check * Device check performed by Dr. Sanchez in ED. * Patient was seen in hospital * Reason: syncope * Episodes: 3 VHR episodes since last remote. * Presenting rhythm: RUG WEAVER @ 70 bpm * Underlying rhythm: RUG WEAVER @ 30 bpm * Heart Rate Histograms reviewed * Device Function and programmed parameters reviewed Title: Non-sustained Ventricular Tachycardia * Total episodes: 3 * Most recent episode was 09/03 @ 1030. EGM suggests NSVT for 10s seconds with V rate around 170 bpm. The other EGM available for review from 08/23 shows NSVT for 3 seconds @ 200 bpm. Plan: PHYSICIAN'S ASSESSMENT AND PLAN: Dr. Sanchez's note Patient presents with syncopal episode at 8:30 PM. No correlative episodes detected. He was putting his dishes away when episode occurred. He lost consciousness for a few seconds ( witnessed episode). No prodromal episodes. He was taken to [place] ER where he had some NSVT at 1030 which is noted by device. I spoke with ER team and relayed information. They are continuing ongoing testing and plan to monitor patient in ER and have cardiology evaluate in AM. He has other episodes of lightheadedness when he rolls to his left but has prodromal symptoms prior and usually feels lightheaded. In that sense, this episode was atypical. Would consider other causes including VVS and consider tilt table testing. This patient underwent device interrogation. I agree that the device interrogation was medically indicated to provide appropriate care and continue routine device interrogations as indicated. Encounter Summary: This report includes 1 transmission that was received on 2024-09-06. Battery, lead impedance, sensing amplitude and pacing threshold data was reviewed. Narrative Procedure Note Christopher Maravilla M.D. - 09/10/2024 IMPRESSION: Encounter Impression: Title: Hospital Check * Device check performed by Dr. Sanchez in ED. * Patient was seen inhospital * Reason: syncope * Episodes: 3 VHRepisodes since last remote. * Presenting rhythm: RUG WEAVER @ 70 bpm * Underlying rhythm: RUG WEAVER@ 30 bpm * Heart Rate Histograms reviewed * Device Function and programmed parameters reviewed Title: Non-sustained Ventricular Tachycardia * Total episodes: 3 * Most recent episode was / @ 1030. EGM suggests NSVT for 10s secondswith V rate around 170 bpm. The other EGM available for review from ows NSVT for 3 seconds @ 200 bpm. Plan: PHYSICIAN'S ASSESSMENT AND PLAN: Dr. Sanchez's note Patient presentswith syncopal episode at 8:30 PM. No correlative episodes detected. He wasputting his dishes away when episode occurred. He lost consciousness for afew seconds ( witnessed episode). No prodromal episodes. He was taken to [place] ER where hehad some NSVT at 1030 which is noted by device. I spoke with ER team andrelayed information. They are continuing ongoing testing and plan tomonitor patient in ER and have cardiology evaluate in AM. He has other episodes of lightheadedness whenhe rolls to his left but has prodromal symptoms prior and usually feelslightheaded. In that sense, this episode was atypical. Would considerother causes including VVS and consider tilt table testing. This patient underwent device interrogation. I agree that the deviceinterrogation was medically indicated to provide appropriate care andcontinue routine device interrogations as indicated. Encounter Summary: This report includes 1 transmission that was receivedon 2024-09-06. Battery, lead impedance, sensing amplitude and pacingthreshold data was reviewed. Justice Boykin APRNNArmandoP. CV IMPLANTABLE CA RDIAC DEVICE Final Result * (ABNORMAL) NT-Pro B-Type Natriuretic Peptide (BNP) (09/06/2024 7:21 AM CDT) NT-Pro BNP 5974(H) <=540 pg/mL 09/06/2024 9:24 AM CDT DTL Comment: NT-proBNP values less than 300 pg/mL have a 99% negative predictive value for excluding acute congestive heart failure. A cutoff of 1200 pg/mL for patients with an eGFR<60 yields a diagnostic sensitivity and specificity of 89% and 72% for acute congestive heart failure. A diagnostic NT-proBNP cutoff of 1800 pg/mL has been suggested in adults over 75 years of age in the absence of renal failure. Blood (Blood, Venous) 09/06/2024 7:21 AM CDT 09/06/2024 8:28 AM CDT Marquita Lo M.D. LAB BLOOD ADD-ON Final Result [facility] [address] [place] [address], [facility] DTL [facility] [address] [place] [address] * (ABNORMAL) D-Dimer (09/06/2024 5:06 AM CDT) D-Dimer, P 897(H) <=500 ng/mL FEU 09/06/2024 8:55 AM CDT [facility] Comment: D-dimer concentrations increase with age. For DVT/PE exclusion, in addition to clinical pre-test probability, age-adjusted D-dimer cut-offs are suggested for patients >50 years old. For additional information refer to the D-dimer assay in the Laboratory Test Catalog (LTC) and/or AskMayoExpert (OWEN). ----ADDITIONAL INFORMATION---- D-dimer values less than or equal to 500 ng/mL fibrinogen equivalent units (FEU) may be used in conjunction with clinical pre-test probability to exclude deep vein thrombosis (DVT) and/or pulmonary embolism (PE). Blood (Blood, Venous) 09/06/2024 5:06 AM CDT 09/06/2024 8:47 AM CDT Marquita Lo M.D. LAB BLOOD ADD-ON Final Result Performing Organization Address [facility]/ZIP Co de Phone Number [facility] [address] [place] [address], [facility] [address] [place] [address] * (ABNORMAL) Prothrombin Time (PT) (09/06/2024 5:06 AM CDT) Prothrombin Time, P 33.9(H) 9.4 - 12.5 sec 09/06/2024 5:17 AM CDT [facility] INR 3.1 0.9 - 1.1 09/06/2024 5:17 AM CDT [facility] Comment: ----ADDITIONAL INFORMATION---- Standard intensity warfarin therapeutic range: 2.0 to 3.0 High intensity warfarin therapeutic range: 2.5 to 3.5 Blood (Blood, Venous) 09/06/2024 5:06 AM CDT 09/06/2024 5:11 AM CDT Khoi Zacarias APRN, C.N.P. LAB BLOOD ADD-ON Final Result Performing Organization Address City/[facility]/ZIP Co de Phone Number [facility] [address] [place] [address], [facility] [address] [place] [address] * (ABNORMAL) Troponin T, 2 Hour with 6 Hour Reflex, 5th Gen (09/06/2024 5:06 AM CDT) [facility] Troponin T, 2 hr, 5th gen 48(H) <=15 ng/L 09/06/2024 5:27 AM CDT [facility] 2H Delta 2 ng/L 09/06/2024 5:27 AM CDT [facility] Comment:6 hour collection no t indicated. 2H Delta Interp Not Changing 09/06/2024 5:27 AM CDT [facility] Blood 09/06/2024 5:06 AM CDT 09/06/2024 5:10 AM CDT Khoi Zacarias APRN, C.N.P. LAB BLOOD TROPONI N Final Result Performing Organization Address City/[facility]/ZIP Co de Phone Number [facility] [address] [place] [address] * (ABNORMAL) Troponin T, Baseline with 2 Hour/6 Hour Reflex Biomarker Panel (09/06/2024 2:58 AM CDT) [facility] Troponin T, Baseline, 5th gen 46(H) <=15 ng/L 09/06/2024 3:32 AM CDT [facility] Blood (Blood, Venous) 09/06/2024 2:58 AM CDT 09/06/2024 3:02 AM CDT Khoi Zacarias APRN, C.N.P. LAB BLOOD TROPONI N Final Result Performing Organization Address City/[facility]/ZIP Co de Phone Number [facility] [address] [place] [address] * (ABNORMAL) CBC with Differential, Blood (09/06/2024 2:58 AM CDT) [facility] Hemoglobin 9.9(L) 13.2 - 16.6 g/dL 09/06/2024 3:06 AM CDT [facility] Hematocrit 30.9(L) 38.3 - 48.6 % 09/06/2024 3:06 AM CDT [facility] Erythrocytes 3.27(L) 4.35 - 5.65 x10(12)/L 09/06/2024 3:06 AM CDT [facility] MCV 94.5 78.2 - 97.9 fL 09/06/2024 3:06 AM CDT [facility] RBC Distrib Width 16.5(H) 11.8 - 14.5 % 09/06/2024 3:06 AM CDT [facility] Platelet Count 167 135 - 317 x10(9)/L 09/06/2024 3:06 AM CDT [facility] Leukocytes 6.4 3.4 - 9.6 x10(9)/L 09/06/2024 3:06 AM CDT [facility] Neutrophils 5.38 1.56 - 6.45 x10(9)/L 09/06/2024 3:06 AM CDT [facility] Lymphocytes 0.39(L) 0.95 - 3.07 x10(9)/L 09/06/2024 3:06 AM CDT [facility] Monocytes 0.56 0.26 - 0.81 x10(9)/L 09/06/2024 3:06 AM CDT [facility] Eosinophils 0.05 0.03 - 0.48 x10(9)/L 09/06/2024 3:06 AM CDT [facility] Basophils <0.03 0.01 - 0.08 x10(9)/L 09/06/2024 3:06 AM CDT [facility] Blood (Blood, Venous) 09/06/2024 2:58 AM CDT 09/06/2024 3:02 AM CDT us Khoi Zacarias APRN, C.N.P. LAB BLOOD ADD-ON Final Result [facility] [address] [place] [address], [facility] STMA [facility] [address] [place] [address] [facility] [address] [place] [address] * Glucose, POCT (09/06/2024 2:58 AM CDT) Glucose, POCT, B 108 70 - 140 mg/dL 09/06/2024 3:35 AM CDT PCLX Site Venstick 09/06/2024 3:35 AM CDT PCLX Blood (Blood, Capillary) 09/06/2024 2:58 AM CDT 09/06/2024 2:58 AM CDT us Khoi Zacarias APRN, C.N.P. LAB POCT ORDERABL ES-MANUAL Final Result POC [facility] [address] [place] [address], [facility] PCLX [facility] POC [address] [place] [address] * (ABNORMAL) Basic Metabolic Panel (09/06/2024 2:58 AM CDT) Potassium, P 4.7 3.6 - 5.2 mmol/L 09/06/2024 3:49 AM CDT DTL Sodium, P 136 135 - 145 mmol/L 09/06/2024 3:49 AM CDT DTL Chloride, P 101 98 - 107 mmol/L 09/06/2024 3:49 AM CDT DTL Bicarbonate, P 25 22 - 29 mmol/L 09/06/2024 3:49 AM CDT DTL Anion Gap, P 10 7 - 15 09/06/2024 3:49 AM CDT DTL BUN (Blood Urea Nitrogen), P 38(H) 8 - 24 mg/dL 09/06/2024 3:49 AM CDT DTL Creatinine 1.77(H) 0.74 - 1.35 mg/dL 09/06/2024 3:49 AM CDT DTL Estimated GFR (eGFR) 37(L) >=60 mL/min/BSA 09/06/2024 3:49 AM CDT DTL Comment: Estimated GFR calculated using the 2020 CKD_EPI creatinine equation. Calcium, Total, P 8.9 8.8 - 10.2 mg/dL 09/06/2024 3:49 AM CDT DTL Glucose, P 108 70 - 140 mg/dL 09/06/2024 3:49 AM CDT DTL Blood (Blood, Venous) 09/06/2024 2:58 AM CDT 09/06/2024 3:26 AM CDT Khoi Zacarias APRN, C.N.P. LAB BLOOD ADD-ON Final Result Performing Organization Address [facility] de Phone Number [facility] [address] [place] [address], [facility] DTL [facility] [address] [place] [address] * ECG 12 Lead (09/06/2024 2:47 AM CDT) Ventricular Rate ECG/Min 70 BPM MUSE QRSD Interval 168 ms MUSE QT Interval 476 ms MUSE QTC Interval 514 ms MUSE R Somers -70 degrees MUSE T Wave Somers 106 degrees MUSE 09/06/2024 2:47 AM CDT 09/06/2024 2:51 AM CDT Impressions MUSE - 09/06/2024 2:51 AM CDT Ventricular-paced rhythm Atrial flutter Prolonged QT When compared with ECG of 02-Dec-2022 09:38, No significant change was found Reviewed by VALERIE Buchanan Narrative Procedure Note Jung Jackman Jr., M.D. - 09/06/2024 IMPRESSION: Ventricular-paced rhythm Atrial flutter Prolonged QT When compared with ECG of 02-Dec-2022 09:38, No significant change was found Reviewed by VALERIE Buchanan Khoi Zacarias APRN, C.N.P. 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 Repair Tricuspid Valve 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 Vitamin B12 Deficiency 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 Overweight Body Mass Index 25-29.9 Adult 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) documented in this encounter Admitting Diagnoses Diagnosis Syncope documented in this encounter Administered Medications Inactive Administered Medications - up to 3 most recent administrations Medication Order MAR Action Action Date Dose Rate Site enoxaparin injection 80 mg (Lovenox) 80 mg (rounded from 78.7 mg = 1 mg/kg 78.7 kg Dosing weight), subcutaneous, 2 times daily, First dose on Thu09/07/24 at 2100, For 10 doses Given 09/10/2024 8:47 AM CDT 80 mg Right Lower Abdomen Given 09/09/2024 8:17 PM CDT 80 mg Le ft Upper Arm (Back) Given 09/09/2024 10:45 AM CDT 80 mg L eft Upper Arm (Back) fentaNYL injection (Sublimaze) Code/trauma/sedation medication, Starting on Thu09/07/24 at 1633, Intraprocedure (CV) Given 09/07/2024 4:33 PM CDT 25 mcg lidocaine 10 mg/mL (1 %) injection (Xylocaine) Code/trauma/sedation medication, Starting on Thu09/07/24 at 1643, Intraprocedure (CV) Given 09/07/2024 4:53 PM CDT 5 mL Left Neck Given 09/07/2024 4:43 PM CDT 2 mL Ri ght Neck metoprolol succinate 24 hr tablet 25 mg (Toprol XL) 25 mg, oral, Daily, First dose (after last modification) on Thu09/06/24 at 0900, Do NOT crush or chew. Tablet may be split on score if needed. Given 09/10/2024 8:47 AM CDT 25 mg Given 09/09/2024 10:44 AM CDT 25 mg Given 09/08/2024 10:08 AM CDT 25 mg midazolam (PF) injection (Versed) Code/trauma/sedation medication, Starting on Thu09/07/24 at 1633, Intraprocedure (CV) Given 09/07/2024 4:33 PM CDT 0.5 mg sertraline tablet 100 mg (Zoloft) 100 mg, oral, Daily, First dose on Thu09/06/24 at 0900 Given 09/10/2024 8:47 AM CDT 100 mg Given 09/09/2024 10:45 AM CDT 100 mg Given 09/08/2024 10:08 AM CDT 100 mg sodium chloride 0.9 % injection 10 mL 10 mL, intravenous, As needed, line care, Starting on Thu09/06/24 at 0229, Peripheral Intravenous Catheter and Rapid Infusion Catheter, prior to blood sampling, post blood transfusion or post blood sampling sodium chloride 0.9 % injection 3 mL 3 mL, intravenous, As needed, line care, Starting on Thu09/06/24 at 0229, Prior to and following infusion and between multiple consecutive infusions: sodium chloride 0.9 % injection sodium chloride 0.9 % injection 3 mL 3 mL, intravenous, Every 12 hours scheduled, First dose on Thu09/06/24 at 0900, Peripheral Intravenous Catheter and Rapid Infusion Catheter, when no infusion to maintain patency Given 09/10/2024 8: 49 AM CDT 3 mL Given 09/09/2024 9:01 PM CDT 3 mL Given 09/09/2024 10:42 AM CDT 3 mL torsemide tablet 40 mg (Demadex) 40 mg, oral, Daily, First dose on Thu09/08/24 at 0900, On hold since Thu09/08/2024 at 1226 until manually unheld Given 09/08/2024 10:08 AM CDT 40 mg warfarin management (Jantoven) oral, Daily, First dose on Thu09/06/24 at 0630, Pharmacist to Dose: Yes, Target INR: 2 - 3, Comorbidities that constitute Warfarin Sensitivity: No known comorbidities that change warfarin sensitivity, Indication: Aortic valve - Mechanical, Therapy type: Continuation Warfarin therapy documented in this encounter Active and Recently Administered Medications Times are shown in CDT. Scheduled Medication Order 09/08/2024 09/09/2024 09/10/2024 enoxaparin injection 80 mg (Lovenox) 80 mg (rounded from 78.7 mg = 1 mg/kg 78.7 kg Dosing weight), subcutaneous, 2 times daily, First dose on Thu09/07/24 at 2100, For 10 doses 1007 (Given - Provider: Maren Townsend R.N.)2031 (Given - Provider: Hemal Martins R.N.) 1045 (Given - Provider: Maren Townsend R.N.)2016 (Given - Provider: Marilou Calix R.N.) 0847 (Given - Provider: [facility]ifton [facility]., [facility]., [facility] furosemide injection 40 mg (Lasix) (COMPLETED) 40 mg, intravenous, Once, On Thu09/08/24 at 1245, For 1 dose, Adults: Doses less than 120 mg: IV push over 20 mg/minute. Doses 120 mg or greater: IVPB at 4 mg/minute. Peds/Neonates: Doses less than 120 mg over 0.5 mg/kg/minute. Doses 120 mg or greater: IVPB at 4 mg/minute. 1328 (Given - Provider: Maren Townsend R.N.) metoprolol succinate 24 hr tablet 25 mg (Toprol XL) 25 mg, oral, Daily, First dose (after last modification) on Thu09/06/24 at 0900, Do NOT crush or chew. Tablet may be split on score if needed. 1008 (Given - Provider: Maren Townsend R.N.) 1044 (Given - Provider: Maren Townsend R.N.) 0847 (Given - Provider: Clifton Lopes M.S., R.N., [facility]) nitroglycerin SL tablet 0.4-0.8 mg (Nitrostat) (COMPLETED) 0.4-0.8 mg, sublingual, Once, On Thu09/09/24 at 1545, For 1 dose, Imaging Protocol Orders, Dose per Radiant Medication Guidelines Dissolve under the tongue. Do NOT crush, chew, split or swallow tablet. 1541 (Given - Provider: Catherine Oquendo, R.N.) sertraline tablet 100 mg (Zoloft) 100 mg, oral, Daily, First dose on Thu09/06/24 at 0900 1008 (Given - Provider: Maren Townsend R.N.) 1045 (Given - Provider: Maren Townsend R.N.) 0847 (Given - Provider: Clifton Lopes M.S., R.N., [facility]) sodium chloride (PF) 0.9 % injection 1-100 mL (COMPLETED) 1-100 mL, intravenous, Once, On Thu09/09/24 at 1545, For 1 dose, Imaging Protocol Orders, Dose per Radiant Medication Guidelines 1548 (Given - Provider: Catherine Oquendo, R.N.) sodium chloride 0.9 % injection 3 mL 3 mL, intravenous, Every 12 hours scheduled, First dose on Thu09/06/24 at 0900, Peripheral Intravenous Catheter and Rapid Infusion Catheter, when no infusion to maintain patency 1011 (Given - Provider: Maren Townsend R.N.)2032 (Given - Provider: Hemal Martins R.N.) 1042 (Given - Provider: Maren Townsend R.N.)210 (Given - Provider: Marilou Calix R.N.) 0849 (Given - Provider: Clifton Lopes M.S., R.N., [facility]) sodium chloride 0.9 % injection 3 mL (CANCELED) 3 mL, intravenous, Every 12 hours scheduled, First dose on Thu09/06/24 at 0900, Peripheral Intravenous Catheter and Rapid Infusion Catheter, when no infusion to maintain patency 1012 (Given - Provider: Maren Townsend R.N.)2032 (Given - Provider: Hemal Martins R.N.) sodium chloride 0.9 % injection 3 mL (CANCELED) 3 mL, intravenous, Every 12 hours scheduled, First dose on Thu09/06/24 at 0900, Peripheral Intravenous Catheter and Rapid Infusion Catheter, when no infusion to maintain patency 1011 (Given - Provider: Maren Townsend R.N.)2031 (Given - Provider: Hemal Martins R.N.) technetium Tc 99m albumin aggregated injection (Tc-99m MAA) (COMPLETED) 3.6-8.8 millicurie, intravenous, Once, On Thu09/09/24 at 1415, For 1 dose, Imaging Protocol Orders 1355 (Given - Provider: Nidia Marin C.N.M.TArmando, NHTCB) torsemide tablet 40 mg (Demadex) 40 mg, oral, Daily, First dose on Thu09/08/24 at 0900, On hold since Thu09/08/2024 at 1226 until manually unheld 1008 (Given - Provider: Maren Townsend R.N.)1226 (Held by provider - Provider: Deanne Kilpatrick M.D., M.S. - Comment: IV diuresis) 0900 (Dose Auto Held - Provider: Deanne Kilpatrick M.D., M.S.) 0900 (Dose Auto Held - Provider: Deanne Kilpatrick M.D., M.S.)1613 (Unheld by provider - Provider: Discharge Provider, Automatic) warfarin management (Jantoven) oral, Daily, First dose on Thu09/06/24 at 0630, Pharmacist to Dose: Yes, Target INR: 2 - 3, Comorbidities that constitute Warfarin Sensitivity: No known comorbidities that change warfarin sensitivity, Indication: Aortic valve - Mechanical, Therapy type: Continuation Warfarin therapy 1700 (Due) 1700 (Due) warfarin tablet 10 mg (Jantoven) (COMPLETED) 10 mg, oral, Once, On Thu09/08/24 at 1700, For 1 dose, HAZARDOUS - Handle with care. Swallow whole. Do NOT chew or split tablet. May crush using the RxCrush system. 1750 (Given - Provider: Maren Townsend R.N.) warfarin tablet 10 mg (Jantoven) (COMPLETED) 10 mg, oral, Once, On Thu09/09/24 at 1700, For 1 dose, HAZARDOUS - Handle with care. Swallow whole. Do NOT chew or split tablet. May crush using the RxCrush system. 170 (Given - Provider: Maren Townsend R.N.) xenon Xe 133 gas (Xe-133 Xenon) (COMPLETED) 13.5-44 millicurie, inhalation, Once, On Thu09/09/24 at 1415, For 1 dose, Imaging Protocol Orders 1354 (Given - Provider: Andrew Greenwood, [facility]) PRN Medication Order 09/08/2024 09/09/2024 09/10/2024 acetaminophen tablet 1,000 mg (TylenoL) 1,000 mg, oral, Every 6 hours PRN, mild pain or score 1-3 of 10, fever, Notify sevice prior to first administration for fever, Starting on Thu09/06/[address] tablet 10 mg (Dulcolax) 10 mg, oral, Daily PRN, constipation, Starting on Thu09/06/24 at 0547, PO route preferred. Constipation unrelieved by docusate sodium (COLACE) if ordered. If results needed within 2 hours give rectal suppository if ordered. Swallow whole. Do NOT crush, chew, or split tablet. bisacodyL suppository 10 mg (Dulcolax) 10 mg, rectal, Daily PRN, constipation, Starting on Thu09/06/24 at 0547, PO route preferred. Constipation unrelieved by docusate sodium (COLACE) if ordered. If results needed within 2 hours - give rectal suppository. 1704 (Not Given - Provider: Maren Townsend R.N. - Reason: Patient/family refused - Comment: patient already had a bowel movement) calcium carbonate chewable tablet 400 mg of calcium (Tums) 400 mg of calcium, oral, Every 2 hour PRN, indigestion, Not to exceed 12 tablets in 24 hours, Starting on Thu09/06/24 at 0547, Doses listed are in mg of elemental calcium. Take with food. 500 mg calcium carbonate contains 200 mg of elemental calcium. iopromide 370 mg iodine/mL injection 1-162 mL (Ultravist) (COMPLETED) 1-162 mL, intravenous, Once in imaging, contrast, Starting on Thu09/09/24 at 1526, For 1 dose, Imaging Protocol Orders, Dose per Radiant Medication Guidelines 1548 (Given - Provider: Catherine Oquendo, R.N.) sodium chloride 0.9 % injection 10 mL 10 mL, intravenous, As needed, line care, Starting on Thu09/06/24 at 0229, Peripheral Intravenous Catheter and Rapid Infusion Catheter, prior to blood sampling, post blood transfusion or post blood sampling sodium chloride 0.9 % injection 3 mL 3 mL, intravenous, As needed, line care, Starting on Thu09/06/24 at 0229, Prior to and following infusion and between multiple consecutive infusions: sodium chloride 0.9 % injection documented in this encounter Care Teams Wire Loop Machine Operator Relationship Specialty Start Date End Date Elsewhere, Pcp PCP - General Family Medicine 11/27/20 Mary Ann Sol [address] [place] [address] Country Sales Manager Physician 01/17/19 documented as of this encounter
--- OUTSIDE RECORDS SUMMARY | 2024-09-13 03:57 | XMS_ITS | Encounter Summary ---
Author Organization [facility] Address [address] [place] [address] Care Team Providers Care Restorative Art Embalmer Name Role Phone Elsewhere, Pcp Primary Care Provider Unavailabl e Encounter Details Date Type Department Care Team (Late st Contact Info) Description 09/08/2024 Clinical Communication [facility] [address] [place] [address] Electric Motor RepairerLobito M.D. Social History Tobacco Use Types Packs/Day Years Used Date Smoking Tobacco: Former Cigarettes 1 50 0 [birth year]/04/1954 - 05/04/2004 Smokeless Tobacco: Never Alcohol Use Standard Drinks/Week Comments Yes 5 (1 standard drink = 0.6 oz pur e alcohol) [facility] Utilities Answer Date Recorded In the past 12 months has e [facility], gas, oil, or water [employer] threatened to shut off services in your [...] often do you attend chur ch or episcopal services? More than 4 times per year 05/08/2022 Do you belong to any clubs o r organizations such as orthodoxy groups, unions, fraternal or athletic groups, or [...] care, and heating? Not very hard 05/08/2022 [facility] - [...] your living situation today? I have a [facility] place to live 09/06/2024 Education Answer Date Recorded What is the highest level of school you have completed or the highest degree you have received? 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 [address] [place] [address] 09/14/2024 9:10 AM CDT Appointment Department of Laboratory Medicine and Pathology, [facility] [place], [place] [address] [place] [address] Marquita Lo M.D. [address] [place] [address] 09/14/2024 9:30 AM CDT Appointment Department of Cardiac Rehabilitation in [place], [place] [address] [place] [address] Marquita Lo M.D. [address] [place] [phone] 09/14/2024 2:00 PM CDT Comprehensive Visit Department of Cardiovascular Medicine in [place], [place] [address] [place] [address] Tom Plascencia M.D. [address] [place] [address] documented as of this encounter Visit Diagnoses Not on filedocumented in this encounter Care Teams Restorative Art Embalmer Relationship Specialty Start Date End Date Elsewhere, Pcp PCP - General Family Medicine 11/27/20 Mary Ann Sol [address] [place] [id number] Shiatsu Therapist Physician 01/17/19 documented as of this encounter
--- OUTSIDE RECORDS SUMMARY | 2024-09-13 03:57 | XMS_ITS | Encounter Summary ---
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 [address] [place] [phone] Phone: tel: fax: [facility] Referral ID Status Reason Start Date Expiration Date V isits Requested Visits Authorized [id number] Authorized 09/08/2024 03/10/2026 1 1 Encounter Details Date Type Department Care Team (Late st Contact Info) Description 09/08/2024 Clinical Communication [facility] [address] [place] [phone] Deanne Kilpatrick M.D., M.S. [address] [place] [phone] Social History Tobacco Use Types Packs/Day Years Used Date Smoking Tobacco: Former Cigarettes 1 50 0 05/04/1954 - 05/04/2004 Smokeless Tobacco: Never Alcohol Use Standard Drinks/Week Comments Yes 5 (1 standard drink = 0.6 oz pur e alcohol) [facility] Utilities Answer Date Recorded In the past 12 months has [facility] [employer], gas, oil, or water [employer] threatened to shut off services in your [...] How often do you attend chur or moravian services? More than 4 times per year 05/08/2022 Do you belong to any clubs o r organizations such as mandaeism groups, unions, fraternal or athletic groups, or [...] care, and heating? Not very hard 05/08/2022 [facility] - Occupational Stress Questionnaire Answer [...] your living situation today? I have a [facility] place to live 09/06/2024 Education Answer Date Recorded What is the highest level of school you have completed or the highest degree you have received? 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 200 [place] [address] 09/14/2024 9:10 AM CDT Appointment Department of Laboratory Medicine and Pathology, [facility] in [place], [place] [address] [place] [phone] Marquita Lo M.D. [address] [place] [address] 09/14/2024 9:30 AM CDT Appointment Department of Cardiac Rehabilitation in [place], [place] [address] [place] [address] Marquita Lo M.D. [address] [place] [address] 09/14/2024 2:00 PM CDT Comprehensive Visit Department of Cardiovascular Medicine in [place], [place] [address] [place] [address] Tom Plascencia M.D. 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) Syncope Expected: 09/08/2024, Expires: 12/09/2025 Comprehensive Metabolic Panel Lab Routine Atrial Fibrillation Permanent (HCC) Congestive Heart Failure (HCC) Transient Ischemic 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) Syncope Expected: 09/08/2024, Expires: 12/09/2025 DX Chest AP or PA and Lateral 2 Views Imaging RAD - Routine (most inpatients and all outpatients) Atrial Fibrillation Permanent (HCC) Congestive Heart Failure (HCC) Transient Ischemic 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) Syncope Expected: 09/08/2024, Expires: 12/09/2025 Six Minute Walk Cardiac Services Routine Atrial Fibrillation Permanent (HCC) Congestive Heart Failure (HCC) Transient Ischemic 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) Syncope Shortness Of Breath Expected: 09/08/2024, Expires: 12/09/2025 Scheduled Referrals Name Type Priority Associated Diagnoses Orde r Schedule Cardiovascular Disease - Pulmonary hypertension consult (clinic) Outpatient Referral Routine Atrial Fibrillation Permanent (HCC) Congestive Heart Failure (HCC) Transient Ischemic 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
--- OUTSIDE RECORDS SUMMARY | 2024-09-13 03:57 | XMS_ITS | Encounter Summary ---
Author Organization [facility] Address [address] [place] [address] Care Team Providers Care Duct Layer Name Role Phone Elsewhere, Pcp Primary Care Provider Unavailabl e Encounter Details Date Type Department Care Team (Late st Contact Info) Description 09/06/2024 2:30 PM CDT Ancillary Procedure Department of Nursing Social History Tobacco Use Types Packs/Day Years Used Date Smoking Tobacco: Former Cigarettes 1 50 0 05/04/1954 - 05/04/2004 Smokeless Tobacco: Never Alcohol Use Standard Drinks/Week Comments Yes 5 (1 standard drink = 0.6 oz pur e alcohol) [facility] Utilities Answer Date Recorded In the past 12 months has e electric, gas, oil, or water [email or web address] threatened to shut off services in your [...] often do you attend chur ch or congregation services? More than 4 times per year 05/08/2022 Do you belong to any clubs o r organizations such as jewish groups, unions, fraternal or athletic groups, or [...] your living situation today? I have a [facility] place to live 09/06/2024 Education Answer Date Recorded What is the highest level of school you have completed or the highest degree you have received? 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 200 [place] [address] 09/14/2024 9:10 AM CDT Appointment Department of Laboratory Medicine and Pathology, [facility] in [place], [place] [address] [place] [address] Marquita Lo M.D. [address] [place] [phone] 09/14/2024 9:30 AM CDT Appointment Department of Cardiac Rehabilitation in [place], [place] [address] [place] [address] Marquita Lo M.D. [address] [place] [phone] 09/14/2024 2:00 PM CDT Comprehensive Visit Department of Cardiovascular Medicine in [place], [place] [address] [place] [address] Tom Plascencia M.D. [address] [place] [address] documented as of this encounter Procedures Procedure Name Priority Date/Time Associated Diagnosis Comments NURSING IMAGE EXAM Routine 09/06/2024 2: 27 PM CDT documented in this encounter Results * Arm, Left-Nursing Image Exam (09/06/2024 2:27 PM CDT) 09/06/2024 [...] on filedocumented in this encounter Care Teams Duct Layer Relationship Specialty Start Date End Date Elsewhere, Pcp PCP - General Family Medicine 11/27/20 Mary Ann Sol [address] [place] [address] Master Merchandiser Physician 01/17/19 documented as of this encounter
--- OUTSIDE RECORDS SUMMARY | 2024-09-13 03:57 | XMS_ITS | Encounter Summary ---
Author Organization [facility] Address [address] [place] [address] Care Team Providers Care General Matcher Name Role Phone Elsewhere, Pcp Primary Care Provider Unavailabl e Encounter Details Date Type Department Care Team (Latest Contact Info) Description 08/04/2024 11:08 AM CDT - 08/04/2024 11:59 PM CDT Hospital Encounter Department of Cardiovascular Diseases in [place], [place] [address] [place] [address] Shad Whittaker M.D. [address] [place] [address] Discharge Disposition: Home or Self Care Social History Tobacco Use Types Packs/Day Years Used Date Smoking Tobacco: Former Cigarettes 1 50 0 [birth year]/04/1954 - 05/04/2004 Smokeless Tobacco: Never Alcohol Use Standard Drinks/Week Comments Yes 5 (1 standard drink = 0.6 oz pur e alcohol) [facility] Utilities Answer Date Recorded In the past 12 months has e [employer], gas, oil, or water [employer] threatened to shut off services in your [...] often do you attend chur ch or rastafari services? More than 4 times per year 05/08/2022 Do you belong to any clubs o r organizations such as presybeterian groups, unions, fraternal or athletic groups, or [...] your living situation today? [facility] have a [facility] 04/14/2024 Education Answer Date Recorded What is the highest level of school you have completed or the highest degree you have received? 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 psyllium (METAMUCIL) 0.52 gram capsule Take 1-2 [...] 8:30 AM CDT Appointment Department of Radiology, [facility] in [place], [place] [address] [place] [phone] Marquita Lo M.D. [address] [place] [phone] 09/14/2024 9:10 AM CDT Appointment Department of Laboratory Medicine and Pathology, [facility] in [place], [place] [address] [place] [phone] Marquita Lo M.D. [address] [place] [phone] 09/14/2024 9:30 AM CDT Appointment Department of Cardiac Rehabilitation in [place], [place] [address] [place] [phone] Marquita Lo M.D. [address] [place] [phone] 09/14/2024 2:00 PM CDT Comprehensive Visit Department of Cardiovascular Medicine in [place], [place] [address] [place] [phone] Tom Plascencia M.D. [address] [place] [phone] documented as of this encounter Procedures Procedure Name Priority Date/Time Associated Diagnosis Comments INTERFACED REMOTE DEVICE CHECK Routine 08/04/2024 11:08 AM CDT documented in this encounter Results * CAR CARDIAC DEVICE INTERROGATION (08/04/2024 11:08 AM CDT) Date Time Interrogation Session [id number] [facility] Type Interrogation Session Remote Scheduled [facility] Implantable Pulse Generator Straddle Bug Operator [employer] [facility] Implantable Pulse Generator Type Pacemaker [facility] Implantable Pulse Generator Model L321 [facility] Implantable Pulse Generator Serial Number [id number] [facility] Implantable Pulse Generator Implant Date 20160103 [facility] Battery Remaining Percentage 81.00 % [facility] Battery Remaining Longevity 84.0 mo [facility] Battery Status Beginning of Service [facility] Abelino Statistic RA Percent Paced 0.00 [facility] Abelino Statistic RV Percent Paced 99.00 [facility] Lead Channel Setting Sensing Sensitivity 0.15 [facility] Lead Channel Measurements Date and Time 20240803 [facility] Lead Channel Sensing Intrinsic Amplitude 4.500 [facility] Lead Channel Setting Sensing Sensitivity 4.00 [facility] Lead Channel Impedance Value 1,240 [facility] Lead Channel Pacing Threshold Amplitude 2.000 [facility] Lead Channel Pacing Threshold Pulse Width 0.4 [facility] Lead Channel Measurements Date and Time 20240803 [facility] Lead Channel Setting Pacing Amplitude 2.400 [facility] Lead Channel Setting Pacing Pulse Width 0.4 [facility] Abelino Setting Mode (NBG Code) VVIR [facility] Abelino Setting Lower Rate Limit 70 [facility] Abelino Setting AT Mode Switch Rate 170 [facility] Abelino Setting Maximum Sensor Rate 110 [facility] Lead Channel Setting Sensing Polarity Bipolar [facility] Lead Channel Setting Pacing Polarity Bipolar [facility] Lead Channel Pacing Threshold Polarity Bipolar [facility] Zone Setting Type Category VT [facility] Murj Rate 1 160 [facility] Zone Setting Status Monitor [facility] Murj Zone ID 1 [facility] Implantable Lead Straddle Bug Operator Guidant [facility] Implantable Lead Model 4086 Flextend [facility] Implantable Lead Location Right Atrium [facility] Implantable Lead Connection Status Connected [facility] Implantable Lead Serial Number [id number] [facility] Implantable Lead Implant Date 20041129 [facility] Implantable Lead Special Function Lead length: 45.00 cm [facility] Implantable Lead Straddle Bug Operator Guidant [facility] Implantable Lead Model 4087 Flextend [facility] Implantable Lead Location Right Ventricle [facility] Implantable Lead Connection Status Connected [facility] Implantable Lead Serial Number [id number] [facility] Implantable Lead Implant Date [id number] [facility] Implantable Lead Special Function Lead length: 52.00 cm [facility] Anatomical Region Laterality Modality Other [...] on filedocumented in this encounter Care Teams General Matcher Relationship Specialty Start Date End Date Elsewhere, Pcp PCP - General Family Medicine 11/27/20 Mary Ann Sol [address] [place] [address] Mine Technician Physician 01/17/19 documented as of this encounter
--- OUTSIDE RECORDS SUMMARY | 2024-09-13 03:58 | XMS_ITS | Encounter Summary ---
Author Organization [facility] Address [address] [place] [address] Care Team Providers Care Pipeman Name Role Phone Elsewhere, Pcp Primary Care Provider Unavailabl e Reason for Visit * Reason Comments Syncope Palpitations Encounter Details Date Type Department Care Team (Late st Contact Info) Description 09/06/2024 2:44 AM CDT - 09/10/2024 2:13 PM CDT Hospital Encounter [facility], Tenth Floor [address] [place] [address] [phone] Khoi Zacarias, YIN, C.N.P. [address] [place] [address] [phone] Marquita Lo M.D. [address] [place] [address] [phone] Zhou Meredith M.D. 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 More than 4 times per year 05/08/2022 Do you belong to any clubs o r organizations such as jainism groups, unions, fraternal or athletic groups, or [...] care, and heating? Not very hard 05/08/2022 [facility] [...] your living situation today? I have a [facility] place to live 09/06/2024 Education Answer Date Recorded What is the highest level of school you have completed or the highest degree you have received? 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 Gender Identity Male 08/22/2018 2:26 PM CDT Sexual Orientation Straight 08/22/2018 2: 26 PM CDT documented as of this encounter Last Filed Vital Signs Vital Sign Reading Time Taken Comments Blood Pressure 113/66 09/10/2024 12:15 PM CDT Pulse 81 09/10/2024 12:15 PM CDT Temperature 36.7 C (98.1 F) 09/10/2024 12:12 PM CDT Respiratory Rate 25 09/10/2024 12:15 PM CDT Oxygen Saturation 94% 09/10/2024 12:15 PM CDT Inhaled Oxygen Concentration - - Weight 75.5 kg (166 lb 7.2 oz) 09/10/2024 4:00 A M CDT Height 177.8 cm (5' 10) 09/06/2024 [...] DR Radiology 09/14/2024 9:10 AM LAB BLOOD BUTCH [facility] 09/14/2024 9:30 AM CVD SIX [...] through Care Everywhere. * Enoxaparin (By injection) (Croatian) documented in this encounter Medications at Time [...] not fall. There was short run of [employer] tele. This was similar episode of palpitation [...] tissue disease. Right Heart cath consistent with Adult Neurologist (combined pre and post capillary PH). Group [...] NSVT under investigation #Status post 25 mm 56.como-Medics mechanical aortic valve prosthesis with Hemashield ascending [...] home. Plan discussed with RST CARD 1 [employer], Dr. Lo, who was present during diaz portions of the evaluation today. Please page the RST CARD 1 service pager at [phone] with any questions. Deanne Kilpatrick MD (Yui) PGY-1, Preliminary Internal Medicine [facility] Pager [phone] * David Avina Pharm.D., R.Ph., [facility] - 09/09/2024 8:46 AM CDT Pharmacist Progress Note Reason for admission: Syncope [R55] PMH: Afib s/p AVNA/PPM 2004, hx NSVT, Hx CarboMedics mAVR 2007, hx TV repair 2014, mild/moderate MR/TRr, CAD?, hx TIA 2015 Medical History[1] OBJECTIVE Neuro: sertraline CV: RHF/pulm HTN- prn IV lasix; NSVT- metoprolol XL 25 qd; mAVR- warfarin Neph: Estimated Creatinine Clearance: 40.3 mL/min (A) (by C-G formula based on SCr of 1.45 mg/dL (H)). Baseline unk PPX: warfarin Warfarin Warfarin Indication: Atrial fibrillation (AF); Aortic valve - Mechanical Target INR: 2 - 3 DOAC Assessment: [facility] AVR Warfarin Administrations (last 168 hours) Date/Time Action Medication Dose 09/08/24 1750 Given warfarin tablet 10 mg ([place]) 10 mg 09/07/24 192 Given warfarin tablet 10 mg ([place]) 10 mg 09/06/24 181 No Dose Today warfarin ([place]) NO Dose [...] dose tonight, likely resume home dose tomorrow. Pharm. GabinoD., R.Ph., BCPS [1] Past Medical History: Diagnosis [...] home. Plan discussed with RST CARD 1 [employer], Dr. Lo, who was present during diaz portions of the evaluation today. Please page the RST CARD 1 service pager at [phone] with any questions. Deanne Kilpatrick MD (Yui) PGY-1, Preliminary Internal Medicine [facility] Pager [phone] * Domingo Ramsay M.B.B.SArmando - 09/08/2024 11:11 AM CDT Images from [...] capillary. Right Heart cath yesterday consistent with Adult Neurologist (combined pre and post capillary PH). Group [...] at 09/08/2024 9:25 PM CDT * David Avina Pharm.D., R.Ph., [facility] - 09/08/2024 10:28 AM CDT Pharmacist Progress [...] Target INR: 2 - 3 DOAC Assessment: [facility] AVR Warfarin Administrations (last 168 hours) Date/Time Action Medication Dose 09/07/241928 Given warfarin tablet 10 mg (Jantoven) 10 mg 09/06/241812 No Dose Today warfarin ([place]) NO Dose [...] AOD), plan for INR check Thursday. David Avina PharmArmandoD., R.Ph., BCPS [1] Past Medical History: [...] an outpatient. * David Avina Pharm.D., R.Ph., [facility] - 09/07/2024 8:04 AM CDT Pharmacist Progress [...] Target INR: 2 - 3 DOAC Assessment: [facility] AVR Warfarin Administrations (last 168 hours) Date/Time Action Medication 09/06/241812 No Dose Today warfarin (Jantoven) NO [...] 1700, if <2 will require bridging David Avina, PharmArmandoD., R.Ph., BCPS [1] Past Medical History: Diagnosis Date Atrial Fibrillation Unspecified (HCC) 2004 Blood Transfusion No Diagnosis 2006 Cataract 2010 Chronic Obstructive Pulmonary Disease (HCC) Concussion Loss Of Consciousness Unspecified Duration Initial Coronary Artery Disease (Unspecified) Depressive Disorder 2006 Gallbladder Disorder Heart Failure NOS Other Injury Of Unspecified Body Region Pneumonia Polyp Colon Renal Disease Skin Cancer (Primary) NOS Sleep Apnea Transient Ischemic Attack 2016 * Anju Chen M.D. - 09/07/2024 7:24 AM CDT [facility] progress note The patient came in with [...] [place] [phone] with any questions. Staffed with Dr. Thornton. Anju Chen MD General control and recovery special tactics * Deanne Kilpatrick M.D., M.S. - 09/07/2024 [...] home. Plan discussed with RST CARD 1 [employer], Dr. Lo, who was present during diaz portions of the evaluation today. Please page the RST CARD 1 service pager at [phone] with any questions. Deanne Kilpatrick MD (Yui) PGY-1, Preliminary Internal Medicine [facility] Pager [phone] * Tara Garcia R.N., C.W.OArmandoC.N. - 09/06/2024 2:[address] [facility] Wound RN consulted to assess Sam Gross skin alterations. Wound assessment, pain, and Jaspreet score noted in the flowsheet. The patient verbally consented to photography of the affected area for clinical trending purposes. Images were taken and are available in [employer]. History: Per chart review, Sam Gross is [...] Odor None *Exudate Amount None Lakia-wound Assessment Dry;Fragile;Flakes;[place] Treatments Cleansed Periwound Treatment Cleansed (Comment) Wound Cleansed with Wound cleanser *Primary Dressing Other (Comment) (Plain Petrolatum) *Primary Dressing Frequency of Change Daily & PRN Primary Dressing Changed New Primary Dressing Status Intact;Clean *Secondary Dressing Open to air Changed by Wound machine ii coremaker Ongoing management Nursing;Patient/caregiver Wound 09/06/24 Skin Tear [...] Secondary Dressing Status Clean;Dry;Intact Changed by Wound machine ii coremaker Ongoing management Nursing Wound 09/06/24 Skin Tear [...] Secondary Dressing Status Clean;Dry;Intact Changed by Wound machine ii coremaker Ongoing management Nursing Wound 09/06/24 Skin Tear Skin tear Type 3 (total flap loss) Elbow Left;Posterior;Lateral Date First Assessed/Time First Assessed: 09/06/24 06 [...] Secondary Dressing Status Clean;Dry;Intact Changed by Wound machine ii coremaker Ongoing management Nursing Wound 09/06/24 Abrasion Hand Left;Dorsum Date First Assessed/Time First Assessed: 09/06/24 0600 [...] Dressing Open to air Changed by Wound machine ii coremaker Ongoing management Nursing Wound 09/06/24 Hematoma Head (Comment) Left;Upper Date First Assessed/Time First Assessed: 09/06/24 0600 [...] nursing. They agree to the plan. The [facility] RN will sign-off. Please place a wound care consult for any new concerns. Electronically signed by: Tara Garcia R.N., [place] 09/06/24 2:58 PM CDT * Miguelangel Thornton [...] answered. Morena Agudelo CT CT Job ID: [id number] * Miguelangel Thornton M.B.B.S. - 09/06/2024 11:31 AM CDT SUBJECTIVE HISTORY OF PRESENT ILLNESS Mr. Gross is an 83-year-old gentleman with history of dual-chamber pacemaker implanted in 2015, aortic valve replacement, tricuspid valve annuloplasty, atrial [...] right-sided pressures. All his questions were answered. Mamie AgudeloS. CT CT Job ID: [id number] * David Avina, Pharm.DArmando, R.Ph., [facility] - 09/06/2024 7:59 AM CDT Pharmacist Progress [...] Target INR: 2 - 3 DOAC Assessment: [facility] AVR Warfarin Administrations (last 168 hours) [...] of home dose (5 mg) tonight. David Avina, PharmArmandoD., R.Ph., BCPS [1] Past Medical History: Diagnosis Date Atrial Fibrillation Unspecified (HCC) 2004 Blood Transfusion No Diagnosis 2005 Cataract 2011 Chronic Obstructive Pulmonary Disease (HCC) Concussion Loss Of Consciousness Unspecified Duration Initial Coronary Artery Disease (Unspecified) Depressive Disorder 2006 Gallbladder Disorder Heart Failure NOS Other Injury Of Unspecified Body Region Pneumonia Polyp Colon Renal Disease Skin Cancer (Primary) NOS Sleep Apnea Transient Ischemic Attack 2016 * Federico Sanchez M.D. - 09/06/2024 4:22 AM CDT Images from the original note were not included. EP Fellow note: DEVICE INTERROGATION Device type: dual chamber pacemaker Last interrogation: remote 08.04.2024 Presenting rhythm: AF. FRONT OFFICE MANAGER Underlying rhythm: FRONT OFFICE MANAGER at 30 bpm Pacing mode: VVIR lower [...] No prodromal episodes. He was taken to [place] ER where he had some NSVT at [...] saw and evaluated the patient with the CARDS 1 resident, participating in the diaz portions of theservice including confirmation of the relevant history and physical examination findings, review ofthe results of pertinent diagnostic testing, and medical decision making. I agree with the plan of care as outlined in the resident's note; please see their note for further details. ADDI Gross is a 83 y.o. male presenting after a syncopal episode at home. Relevant Past medical history includes: atrial fibrillation status post AV node ablation and dual-chamber permanent pacemaker implantation 2004 History of aortic valve replacement with carbomedics mechanical aortic valve in 2007 History of redo sternotomy with a tricuspid valve repair in 2014 [id number] mitral valve regurgitation Hpxc-[id number] tricuspid valve regurgitation Briefly, he had just [...] normal size, not diseased. Presented to the [place] ED. pacemaker interrogation revealed a 12nd run [...] PGY 3 Department of Internal Medicine Pager #[phone] [place], [place] * Magdalena Sandoval M.B., B.Chir. - 09/06/2024 [...] he appeared blue. No postictal symptoms. Consciousness quicklyreturned to baseline and the patient was able to get himself up off the floor. No tongue biting, noincontinence. Denies any previous syncopal episode. Denies orthostatic symptoms prior to this. Does endorse a 1 month history of worsening exertional dyspnea. Usually brought on by walking more than 1 block. Also dyspnea with walking up 1 flight of stairs. No exertional chest pain. Never had a heart attack. He was brought in by the ambulance to [facility]. There, he underwent CT head and CT [...] Last interrogation: remote 08.04.2024 Presenting rhythm: AF. FRONT OFFICE MANAGER Underlying rhythm: FRONT OFFICE MANAGER at 30 bpm Pacing mode: VVIR lower [...] side comparison of images performed. Cardiac cath 2014: CORONARY SUMMARY Coronary artery dominance is right. [...] No evidence of disorganized thinking. Reliable history caregiver services home. ASSESSMENT / PLAN Mr. Gross is hospitalized [...] of nonsustained V-tach Consider HRS consult Continue ELECTRICAL TESTER BATTERY metoprolol 25 mg daily (per patient) Continue warfarin - day may decide to transitioned to IV heparin if procedure is warranted Monitor INR daily Mg >2, K >4 Risk stratification labs: LDL, TSH, A1c # Chronic conditions #MDD Continue sertraline VTE prophylaxis: warfarin Code status: Full Surrogate Decision Maker: Lizeth Living Situation Before Admission: Home Discharge Plan (equipment, therapy, and facility): likely home Plan discussed with RST CARD [address] Adam, who was present during diaz portions of the evaluation today. [place] [phone] with any questions. Erica John, Luis Enrique. documented in this encounter Consult Notes * Miguel Angel Hernandez P.T., D.P.T. - 09/09/2024 11:34 AM CDT Physical Therapy Inpatient Evaluation/Treatment SUBJECTIVE Patient's Name: Sam Gross Referring/Attending Provider: Zhou Meredith M.D. Reason for Referral: Physical Therapy Evaluate and Treat Onset Date: 09/06/2024 Pertinent Medical / Surgical History: Medical History[1] Surgical History[2] History of Present Illness: Sam Gross is a 83 y.o. male who was admitted to in [place] on 09/06/2024 for Syncope [R55]. Precautions Other [...] walker, Single point cane Adaptive Equipment Owned: Diagnostic Imaging Manager Other DME Owned: Regular flat bed Prior [...] valvuloplasty Notes: BarboMedics Annuloflex ring 28mm, Serial #[id number], [id number] VASECTOMY * Kristy Ott, O.TArmando, MOT - 09/09/2024 9:35 AM CDT Occupational Therapy Acute Hospital Inpatient Evaluation/Treatment SUBJECTIVE Patient's Name: Sam Gross Referring/Attending Provider: Zhou Meredith M.D. Reason for Referral: Occupational Therapy Evaluation and Treatment Onset Date: 09/06/2024 PERTINENT MEDICAL / SURGICAL HISTORY: Medical History[1] Surgical History[2] History of Present Illness: Sam Gross is a 83 y.o. male who was admitted to in [place] on 09/06/2024 for Syncope [R55]. 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: Diagnostic Imaging Manager Other DME Owned: Regular flat bed Prior [...] not limit participation in activity Outcome Measures: [facility] Inpatient Short Form: Putting on and taking [...] Treatment Time (min): 20 min Kristy Ott O.Macario, MOT [1] Past Medical History: Diagnosis Date Atrial [...] Drug Study; Surgeon: Mynor Perez M.D.; Location: [facility] CATH ANGIOGRAM N/A 09/07/2024 Procedure: HEART CATHETERIZATION - RIGHT; Surgeon: Mynor Perez M.D.; Location: [facility] GALLBLADDER SURGERY HERNIA REPAIR TONSILLECTOMY TRICUSPID VALVE, VALVULOPLASTY N/A 11/01/2014 Tricuspid valve, valvuloplasty Notes: [employer] Annuloflex ring 28mm, Serial #[id number], [id number] VASECTOMY * Dalila Grigsby CEP - 09/08/2024 10:55 AM CDTAssociated Order(s): IP CONSULT TO CARDIAC REHABILITATION Thank you for the cardiac rehabilitation consult, however this patient does not currently have a qualifying diagnosis. If that changes or you have any questions we can be reached Thursday - Thursday, 7:30 to 4:00pm at [phone]. To qualify for participation in a Cardiac [...] which measures approximately 13 x 10 mm (/582) compared to 16 x 12 mm at the same level previously. An area of previously new clustered micronodularity in the inferior right lower lobe has resolved and clustered ill-defined nodularity/micronodularity in the inferolateral left lower lobe has slightly improved. New areas of loosely clustered micronodularity peripherally in the posterior right upper lobe, circa 129, 217. No change in previously new tiny groundglass nodular density in the lateral left upper lobe ( /234). No change in additional innumerable tiny calcified and uncalcified pulmonary nodules. Diffuse bilateral emphysema. Scattered scarring. New small right pleural effusion with increased atelectasis in the right base. Several mildly enlarged nodes throughout the mediastinum have mildly increased in size, for examplea 14 mm short axis right paratracheal node on 251 previously measured 10 mm, 16 mm short axis subcarinal node on 333 previously measured 13 mm, a 14 mm [...] size with severelyreduced systolic function, RVSP 72, cgdj-tg-trtqzcmu mitral regurgitation, severe tricuspid regurgitation, and mildly [...] page the HRS Consult Service pager at [phone] with any questions. Staffed with Dr. Thornton. Anju Chen MD General Wad Impregnator * Marquita Lo M.D. - 09/06/2024 11:38 [...] encounter Nursing Notes * Clifton Lopes M.S., Dong, PCCN - 09/10/2024 2:13 PM CDT Problem: KNOWLEDGE [...] Progressing .Jessica Herrera R.N. * Neo Gallo M.S.N., R.N. - 09/09/2024 3:[address] Cardiac [...] on a beta-carolina infusion or calcium channel carloina infusion? NO If no, continue. Is patient [...] well during the shift. * Maren Townsend RArmandoNArmando - 09/08/2024 6:49 PM CDT Shift Goals: [...] documented in this encounter ED Notes * Khoi Zacarias APRN, C.N.P. - 09/06/2024 3:14 AM CDT SUBJECTIVE CHIEF [...] of a syncopal episode. He was evaluated [facility] after he had a no prodromal syncopal episode while carrying some boxes. He did hit his head and had undergone CT imaging at the outside facility which was negative. They were concerned as they felt that they saw a run of V-tach while he was present in [place]. The patient has remained asymptomatic since his [...] understanding. ED Course as of 09/06/24434September 06, 2024433 Pacemaker interrogation did show V-tach while he was in [facility] but did not show any obvious signs of arrhythmia with his syncopal episode earlier. Overall after speaking with the provider who performed pacemaker interrogation he did recommend admission for further workup for this syncopal episode. Final Diagnoses: as of 09/06/24434 Syncope Khoi Zacarias APRN, C.N.P. 09/06/24434 * Sumit Hutson R.N. - 09/06/2024 2:26 AM CDT Pt presents from [facility] after suffering syncopal fall, trauma scans unremarkable. While admitted, reportedly 15 second run of V-tach with palpitations at the time and light headedness. Presents for further and pacemaker eval. VSS Sumit Hutson R.N. 09/06/24 0228 documented in this encounter [...] Hgb (09/06)- 9.9 Hgb (09/07)- 9.5 YIN Zacarias, C.N.P. (ED Note 09/06)- labs to ensure [...] was slightly elevated, but has CKD Per [facility] hx: Dr. Dickey (PN 11/27/20)- CKD 3 [...] His pacemaker was interrogated and appeared to beworking well. The Heart Rhythm Service was consulted [...] left main coronary artery on CT angiogram. [place] carrera, his clinical picture was consistent with Group [...] AM CDT Appointment Department of Radiology, [facility] in [place], [place] [address] [place] [phone] Marquita Lo M.D. [address] [place] [phone] 09/14/2024 9:10 AM CDT Appointment Department of Laboratory Medicine and Pathology, [facility] in [place], [place] [address] [place] [phone] Marquita Lo M.D. [address] [place] [phone] 09/14/2024 9:30 AM CDT Appointment Department of Cardiac Rehabilitation in [place], [place] [address] [place] [phone] Marquita Lo M.D. [address] [place] [address] [phone] 09/14/2024 2:00 PM CDT Comprehensive Visit Department of Cardiovascular Medicine in [place], [place] [address] [place] [phone] Tom Plascencia M.D. [address] [place] [phone] documented as of this encounter Procedures Procedure [...] * (ABNORMAL) Magnesium (09/10/2024 5:00 AM CDT) Pathologist [facility] Magnesium, S 2.4(H) 1.7 - 2.3 mg/dL 09/10/2024 6:46 AM CDT DTL Blood (Blood, Venous) 09/10/2024 5:00 AM CDT 09/10/2024 6:15 AM CDT Raz López M.D. LAB BLOOD ADD-ON Final Result [address] [address], [facility] [address] [address] * (ABNORMAL) Basic Metabolic Panel (09/10/2024 5:00 AM CDT) Pathologist [facility] Potassium, S 4.7 3.6 - 5.2 mmol/L [...] 5:00 AM CDT 09/10/2024 6:15 AM CDT us Raz López M.D. LAB BLOOD [place] [address], [facility] [place] [address] * (ABNORMAL) CBC without Differential (09/10/2024 5:00 AM CDT) Hemoglobin 9.8(L) 13.2 - 16.6 g/dL 09/10/2024 [...] 5:00 AM CDT 09/10/2024 6:00 AM CDT Raz López M.D. LAB BLOOD ADD-ON Final Result Performing Organization Address [facility] de Phone Number [facility] [address] [facility] 200 [place] [address] * (ABNORMAL) Prothrombin Time (PT) (09/10/2024 5:00 [...] BLOOD ADD-ON Final Result Performing Organization Address [facility] Co de Phone Number [facility] [address] [facility] 200 [place] [address] * CT Cardiac Angiogram with Coronary Arteries [...] 5: 100%, Occluded N: Non-diagnostic study Plaque [place]: P1: Mild (CACS1-100/SIS1-2/1-2 vessels mild plaque) P2: Moderate ([id number]/SIS3-4/1-2 vessels moderate; 3 vessels mild plaque) P3: Severe ([id number]/SIS5-7/3 vessels moderate; 1 vessel severe plaque) P4: [...] Similar bilateral noncalcified solid pulmonary nodules, including nmcopumm18 mm greatest dimension nodule in the peripheral [...] 5: 100%, Occluded N: Non-diagnostic study Plaque [place]: P1: Mild (CACS1-100/SIS1-2/1-2 vessels mild plaque) P2: Moderate ([id number]/SIS3-4/1-2 vessels moderate; 3 vessels mildplaque) P3: Severe ([id number]/SIS5-7/3 vessels moderate; 1 vessel severeplaque) P4: Extensive [...] increased in size since04/19/2024. Raz López M.D. IMG NM PROCEDURES Final Result * (ABNORMAL) Renal Function Panel (09/09/2024 9:42 AM CDT) [facility] Potassium, S 4.8 3.6 - 5.2 mmol/L [...] 9:42 AM CDT 09/09/2024 10:35 AM CDT Raz López M.D. LAB BLOOD ADD-ON Final Result Performing Organization Address City/[facility]/ZIP Co de Phone Number [facility] 200 [place] [address], [facility] 200 [place] [address] * (ABNORMAL) CBC without Differential (09/09/2024 9:42 AM CDT) Pathologist [facility] Hemoglobin 10.4(L) 13.2 - 16.6 g/dL 09/09/2024 [...] 9:42 AM CDT 09/09/2024 10:21 AM CDT Raz López M.D. LAB BLOOD ADD-ON Final Result Performing Organization Address City/[facility]/ZIP Co de Phone Number [facility] 200 [place] [address], [facility] 200 [place] [address] * ECG 12 Lead (09/09/2024 7:54 AM CDT) Ventricular Rate ECG/Min 70 BPM MUSE QRSD Interval 170 ms MUSE QT Interval 490 ms MUSE QTC Interval 529 ms MUSE R Tucker -71 degrees MUSE T Wave Tucker 104 degrees MUSE 09/09/2024 7:54 AM CDT [...] Zhou Meredith M.D. ECG ORDERABLES Final Result MUSE NA * ECG 12 Lead (09/09/2024 6:49 AM CDT) Ventricular Rate ECG/Min 70 BPM MUSE QRSD Interval 170 ms MUSE QT Interval 488 ms MUSE QTC Interval 527 ms MUSE R Tucker -70 degrees MUSE T Wave Tucker 104 degrees MUSE 09/09/2024 6:49 AM CDT [...] change in data has occurred Revised Report us Raz López M.D. ECG ORDERABLES Edited Result - Final Performing Organization Address City/[facility] Co de Phone Number MUSE NA [...] BLOOD ADD-ON Final Result Performing Organization Address [facility] de Phone Number [address] [address], [facility] [address] [address] * (ABNORMAL) Basic Metabolic Panel (09/08/2024 6:33 AM CDT) Pathologist [facility] Potassium, S 5.1 3.6 - 5.2 mmol/L [...] 6:33 AM CDT 09/08/2024 7:33 AM CDT us Marquita Lo M.D. LAB BLOOD ADD-ON Final Result [facility] [address] [place] [address], [address] [address] * (ABNORMAL) CBC without Differential (09/08/2024 6:33 AM CDT) [facility] Hemoglobin 10.1(L) 13.2 - 16.6 g/dL 09/08/2024 [...] BLOOD ADD-ON Final Result Performing Organization Address [facility] Co de Phone Number [address] [place] [address] * (ABNORMAL) Prothrombin Time (PT) (09/08/2024 4:33 [...] BLOOD ADD-ON Final Result Performing Organization Address [facility] Co de Phone Number [address] [address] * (ABNORMAL) Prothrombin Time (PT) (09/07/2024 6:59 PM CDT) Prothrombin Time, P 18.6(H) 9.4 - 12.5 sec 09/07/2024 7:44 PM CDT DTL INR 1.7 0.9 - 1.1 09/07/2024 7:44 PM CDT DTL Comment: ----ADDITIONAL INFORMATION---- Standard intensity warfarin therapeutic range: 2.0 to 3.0 High intensity warfarin therapeutic range: 2.5 to 3.5 Blood (Blood, Venous) 09/07/2024 6:59 PM CDT 09/07/2024 7:22 PM CDT us Marquita Lo M.D. LAB BLOOD ADD-ON Final Result [facility] [address] [place] [address], [place] DTL [facility] [address] [place] [address] * RIGHT HEART CATHETERIZATION, DRUG STUDY (09/07/2024 [...] the complete report, see the Order-Level Documents. Result [facility] Marquita Lo M.D. CV CARDIAC CATH PROCEDURES Richa cabrera Result * ECG Monitor Record (09/07/2024 4:05 PM CDT) Narrative 09/07/2024 4:05 PM CDT Ordered by an unspecified provider. Default Authenticator Blane ECG ORDERABLES Final Result * (ABNORMAL) S-TSH (Thyroid-Stimulating Hormone - Sensitive) (09/07/2024 4:40 AM CDT) TSH, Sensitive 5.1(H) 0.3 - 4.2 mIU/L 09/07/2024 6:00 AM CDT DTL Blood (Blood, Venous) 09/07/2024 4:40 AM CDT 09/07/2024 5:36 AM CDT Myrtlematt Alejandro APRN, C.N.P., M.S.N. LAB BLOOD ADD-ON Final Result Performing Organization Address City/[facility]/ZIP Co de Phone Number [facility] [address] [place] [address] * (ABNORMAL) Magnesium (09/07/2024 4:40 AM CDT) Magnesium, S 2.5(H) 1.7 - 2.3 mg/dL 09/07/2024 6:00 AM CDT DTL Blood (Blood, Venous) 09/07/2024 4:40 AM CDT 09/07/2024 5:36 AM CDT us Myrtle Alejandro APRN, C.N.P., M.S.N. LAB BLOOD ADD-ON Final Result Performing Organization Address City/[facility] Co de Phone Number [facility] [address] [place] [address] * Iron and Total Iron-Binding Capacity (09/07/2024 4:40 AM CDT) Iron 57 50 - 150 mcg/dL 09/07/2024 6:00 AM CDT DTL Total Iron Binding Capacity 320 250 - 400 mcg/dL 09/07/2024 6:00 AM CDT DTL Percent Saturation 18 14 - 50 % 09/07/2024 6:00 AM CDT DTL Blood (Blood, Venous) 09/07/2024 4:40 AM CDT 09/07/2024 5:36 AM CDT Justice Faulkner APRNNEverette., M.S.N. LAB BLOOD ADD-ON Final Result Performing Organization Address City/[facility]/ZIP Co de Phone Number [facility] [address] DTL [facility] [address] [place] [address] * Lipid Panel (09/07/2024 4:40 AM CDT) [...] C.N.P., M.S.N. LAB BLOOD ADD-ON Final Result [facility] [address] [place] [address], [facility] DTL [facility] [address] [place] [address] * (ABNORMAL) Comprehensive Metabolic Panel (09/07/2024 4:40 AM CDT) Pathologist [facility] Potassium, S 4.7 3.6 - 5.2 mmol/L [...] C.N.P., M.S.N. LAB BLOOD ADD-ON Final Result [facility] [address] [place] [address], [facility] [address] [place] [address] * (ABNORMAL) Prothrombin Time (PT) (09/07/2024 4:39 AM CDT) Prothrombin Time, P 23.0(H) 9.4 - 12.5 sec 09/07/2024 5:38 AM CDT DTL INR 2.1 0.9 - 1.1 09/07/2024 5:38 AM CDT DTL Comment: ----ADDITIONAL INFORMATION---- Standard intensity warfarin therapeutic range: 2.0 to 3.0 High intensity warfarin therapeutic range: 2.5 to 3.5 Blood (Blood, Venous) 09/07/2024 4:39 AM CDT 09/07/2024 5:21 AM CDT Marquita Lo M.D. LAB BLOOD ADD-ON Final Result [facility] [address] [place] [address], [facility] DTL [facility] [address] [place] [address] * (ABNORMAL) CBC with Differential, Blood (09/07/2024 4:39 AM CDT) Hemoglobin 9.5(L) 13.2 - 16.6 g/dL 09/07/2024 [...] 4:39 AM CDT 09/07/2024 5:22 AM CDT us Myrtle Alejandro APRN, C.N.P., M.S.N. LAB BLOOD ADD-ON Final Result [facility] [address] [place] [address], [facility] DTL [facility] [address] [place] [address] DHPM [facility] [address] [place] [address] * (ABNORMAL) Hemoglobin A1c (09/07/2024 4:39 AM CDT) Hemoglobin A1c, B 6.4(H) 4.0 - 5.6 % 09/07/2024 5:54 AM CDT DT Comment: Hemoglobin A1c values of 5.7-6.4 percent indicate an increased risk for developing diabetes mellitus. In diabetic patients, HbA1c goals should be discussed with healthcare provider. Blood (Blood, Venous) 09/07/2024 4:39 AM CDT 09/07/2024 5:22 AM CDT Justice Faulkner APRNNArmandoP., M.S.N. LAB BLOOD ADD-ON Final Result Performing Organization Address [facility] [place] [address] * (ABNORMAL) T3 (Triiodothyronine), Total (09/07/2024 4:35 AM CDT) T3 (Triiodothyroni ne), Total, S 60(L) 80 - 200 ng/dL 09/07/2024 8:48 AM CDT DT Blood 09/07/2024 4:35 AM CDT 09/07/2024 8:13 AM CDT Deanne Kilpatrick M.D., M.S. LAB BLOOD ADD-ON F inal Result Performing Organization Address City/[facility] Co de Phone Number [facility] [address] [place] [address], [place] [address] * T4 (Thyroxine), Free (09/07/2024 4:35 AM CDT) T4 (Thyroxine), Free, S 1.1 0.9 - 1.7 ng/dL 09/07/2024 8:48 AM CDT DTL Blood (Blood, Venous) 09/07/2024 4:35 AM CDT 09/07/2024 8:13 AM CDT us Marquita Lo M.D. LAB BLOOD ADD-ON Final Result [facility] [address] [place] [address], [facility] [address] [place] [address] * (TTE) 2D ECHO DOPPLER COLOR (09/06/2024 3:40 PM CDT) Pathologist [facility] Ejection Fraction 63 MC CV EIMS LV [...] Normal left ventricular chamber size. Calculated ejection [id number]%. 9. Abnormal ventricular septal motion - post-operative without otherregional wall motion abnormalities. 10. Severely enlarged inferior vena cava size with no inspiratorycollapse. 11. Tiny posterior pericardial effusion. 12. Compared to the report of 04/21/2024 no significant change hasoccurred. Side by side comparison of images performed. Findings Echo performed at the patient's bedside. Echocardiogram performed per leftventricular function protocol. Last full echocardiogram oosmakarw64/19/2024. LEFT VENTRICLE:Normal left ventricular chamber size. Calculated [...] normal distal ICA in accordance with [place] Symptomatic Carotid Endarterectomy Trial (NASCET). Procedure Note [...] has elevated velocity consistent witha 50-69% stenosis. us Marquita Lo M.D. [facility] US PROCEDURES Final Result * CARDIOVASCULAR IMPLANTABLE ELECTRONIC DEVICE - NO CHARGE (09/06/2024 7:44 AM CDT) Date Time Interrogation Session [id number] [facility] Implantable Pulse Generator Child Welfare Caseworker [place] Step[employer]er [facility] Implantable Pulse Generator Type Pacemaker [facility] Implantable Pulse Generator Model L321 [facility] Implantable Pulse Generator Serial Number [id number] [facility] Implantable Pulse Generator Implant Date [id number] [facility] Abelino Statistic RA Percent Paced 0.00 [facility] Abelino Statistic RV Percent Paced 99.00 [facility] Lead Channel Setting Sensing Sensitivity 0.15 [facility] Lead Channel Measurements Date and Time [id number] [facility] Lead Channel Setting Sensing Sensitivity 4.00 [facility] Lead Channel Impedance Value 1,205 [facility] Lead Channel Pacing Threshold Amplitude 1.800 [facility] Lead Channel Pacing Threshold Pulse Width 0.4 [facility] Lead Channel Measurements Date and Time [id number] [facility] Lead Channel Setting Pacing Amplitude 2.400 [facility] Lead Channel Setting Pacing Pulse Width 0.4 [facility] Aeblino Setting Mode (NBG Code) VVIR [facility] Ventricular chambers paced during [employer]ERAL GREETER pacing. RV [facility] Abelino Setting Lower Rate Limit 70 [facility] Abelino Setting AT Mode Switch Rate 170 [facility] Abelino Setting Maximum Sensor Rate 110 [facility] Zone Setting Type Category VT [facility] Murj Rate 1 160 [facility] Zone Setting Status Monitor [facility] Murj Zone ID 1 [facility] Implantable Lead Child Welfare Caseworker Guidant [facility]plantable Lead Model 4086 Flextend [facility] Implantable Lead Location Right Atrium [facility] Implantable Lead Connection Status Connected [facility] Implantable Lead Serial Number [id number] [facility] Implantable Lead Implant Date [id number] [facility] Implantable Lead Special Function Lead length: 45.00 cm [facility] Implantable Lead Child Welfare Caseworker Guidant [facility] Implantable Lead Model 4087 Flextend [facility] Implantable Lead Location Right Ventricle [facility] Implantable Lead Connection Status Connected [facility] Implantable Lead Serial Number [id number] [facility] Implantable Lead Implant Date [id number] [facility] Implantable Lead Special Function Lead length: 52.00 cm [facility] Anatomical Region Laterality Modality Other 09/10/2024 12:2 1 AM CDT Impressions 09/10/2024 12:21 AM CDT Encounter Impression: Title: Hospital Check * Device check performed by Dr. Sanchez in ED. * Patient was seen in hospital * Reason: syncope * Episodes: 3 VHR episodes since last remote. * Presenting rhythm: FRONT OFFICE MANAGER @ 70 bpm * Underlying rhythm: FRONT OFFICE MANAGER @ 30 bpm * Heart Rate Histograms reviewed * Device Function and programmed parameters reviewed Title: Non-sustained Ventricular Tachycardia * Total episodes: 3 * Most recent episode was 5/3 @ 1030. EGM suggests NSVT for 10s [...] No prodromal episodes. He was taken to [place] ER where he had some NSVT at [...] VHRepisodes since last remote. * Presenting rhythm: FRONT OFFICE MANAGER @ 70 bpm * Underlying rhythm: FRONT OFFICE MANAGER@ 30 bpm * Heart Rate Histograms reviewed * Device Function and programmed parameters reviewed Title: Non-sustained Ventricular Tachycardia * Total episodes: 3 * Most recent episode was 5/3 @ 1030. EGM suggests NSVT for 10s secondswith V rate around 170 bpm. The other EGM available for review from NSVT for 3 seconds @ 200 bpm. Plan: PHYSICIAN'S ASSESSMENT AND PLAN: Dr. Sanchez's note Patient presentswith syncopal episode at 8:30 PM. No correlative episodes detected. He wasputting his dishes away when episode occurred. He lost consciousness for afew seconds ( witnessed episode). No prodromal episodes. He was taken to [place] ER where hehad some NSVT at 1030 which is noted by device. I spoke with ER team rio dee. They are continuing ongoing testing and plan [...] sensing amplitude and pacingthreshold data was reviewed. Khoi Zacarias APRN, C.N.P. CV IMPLANTABLE CA RDIAC DEVICE Final Result [...] BLOOD ADD-ON Final Result Performing Organization Address [facility] Co de Phone Number [facility] [address] [place] [address], [facility] DTL [facility] [address] [place] [address] * (ABNORMAL) D-Dimer (09/06/2024 5:06 AM CDT) D-Dimer, P 897(H) <=500 ng/mL FEU 09/06/2024 8:55 AM CDT [facility] Comment: D-dimer concentrations increase with age. For [...] BLOOD ADD-ON Final Result Performing Organization Address [facility] Co de Phone Number [facility] [address] [place] [address], [facility] [address] [place] [address] * (ABNORMAL) Prothrombin Time (PT) (09/06/2024 5:06 AM CDT) Prothrombin Time, P 33.9(H) 9.4 - 12.5 sec 09/06/2024 5:17 AM CDT [facility] INR 3.1 0.9 - 1.1 09/06/2024 5:17 AM CDT [facility] Comment: ----ADDITIONAL INFORMATION---- Standard intensity warfarin therapeutic range: 2.0 to 3.0 High intensity warfarin therapeutic range: 2.5 to 3.5 Blood (Blood, Venous) 09/06/2024 5:06 AM CDT 09/06/2024 5:11 AM CDT Khoi Zacarias APRN, C.N.P. LAB BLOOD ADD-ON Final Result Performing Organization Address City/[facility]/ZIP Co de Phone Number [facility] [address] [place] [address], [facility] [address] [place] [address] * (ABNORMAL) Troponin T, 2 Hour with 6 Hour Reflex, 5th Gen (09/06/2024 5:06 AM CDT) Troponin T, 2 hr, 5th gen 48(H) <=15 ng/L 09/06/2024 5:27 AM CDT [facility] 2H Delta 2 ng/L 09/06/2024 5:27 AM CDT [facility] Comment:6 hour collection no t indicated. 2H Delta Interp Not Changing 09/06/2024 5:27 AM CDT ST[facility] Blood 09/06/2024 5:06 AM CDT 09/06/2024 5:10 AM CDT Khoi Zacarias APRN, C.N.P. LAB BLOOD TROPONI N Final Result Performing Organization Address City/[facility]/ZIP Co de Phone Number [facility] [address] [place] [address], [facility] [address] [place] [address] * (ABNORMAL) Troponin T, Baseline with 2 Hour/6 Hour Reflex Biomarker Panel (09/06/2024 2:58 AM CDT) Troponin T, Baseline, 5th gen 46(H) <=15 ng/L 09/06/2024 3:32 AM CDT ST[facility] Blood (Blood, Venous) 09/06/2024 2:58 AM CDT 09/06/2024 3:02 AM CDT us Justice Boykin APRNNArmandoP. LAB BLOOD TROPONI N Final Result [facility] [address] [place] [address], [facility] STMA [facility] [address] [place] [address] * (ABNORMAL) CBC with Differential, Blood (09/06/2024 2:58 AM CDT) Pathologist [facility] Hemoglobin 9.9(L) 13.2 - 16.6 g/dL 09/06/2024 [...] BLOOD ADD-ON Final Result Performing Organization Address [facility] de Phone Number [facility] [address] [place] [address], [facility] STMA [facility] [address] [place] [address] [facility] [address] [place] [address] * Glucose, POCT (09/06/2024 2:58 AM CDT) Glucose, POCT, B 108 70 - 140 mg/dL 09/06/2024 3:35 AM CDT PCLX Site Venstick 09/06/2024 3:35 AM CDT PCLX Blood (Blood, Capillary) 09/06/2024 2:58 AM CDT 09/06/2024 2:58 AM CDT Khoi Zacarias APRN, C.N.P. LAB POCT ORDERABL ES-MANUAL Final Result Performing Organization Address [facility] de Phone Number POC [facility] [address] [place] [address], [facility] PCLX [facility] [address] [place] [address] * (ABNORMAL) Basic Metabolic Panel (09/06/2024 2:58 [...] APRN, C.N.P. LAB BLOOD [place] [address], [place] [address] * ECG 12 Lead (09/06/2024 2:47 AM CDT) Ventricular Rate ECG/Min 70 BPM MUSE QRSD Interval 168 ms MUSE QT Interval 476 ms MUSE QTC Interval 514 ms MUSE R Tucker -70 degrees MUSE T Wave Tucker 106 degrees MUSE 09/06/2024 2:47 AM CDT [...] change was found Reviewed by VALERIE Buchanan us Khoi Zacarias APRN, C.N.PArmando ECG ORDERABLES F inal Result MUSE NA documented in this encounter Visit [...] 80 mg L eft Upper Arm (Back) furosemide injection 40 mg (Lasix) 40 mg, intravenous, Once, On Teresa 09/08/24 at 1245, For 1 dose, Adults: Doses less than 120 mg: IV push over 20 mg/minute. Doses 120 mg or greater: IVPB at 4 mg/minute. Peds/Neonates: Doses less than 120 mg over 0.5 mg/kg/minute. Doses 120 mg or greater: IVPB at 4 mg/minute. Given 09/08/2024 1:2 8 PM CDT 40 mg iopromide 370 mg iodine/mL injection 1-162 mL (Ultravist) 1-162 mL, intravenous, Once in imaging, contrast, Starting on Thu09/09/24 at 1526, For 1 dose, Imaging Protocol Orders, Dose per Radiant Medication Guidelines Given 09/09/2024 3:48 PM CDT 87 mL metoprolol succinate 24 hr tablet 25 mg (Toprol XL) 25 mg, oral, Daily, First dose (after last modification) on Thu09/06/24 at 0900, Do NOT crush or chew. Tablet may be split on score if needed. Given 09/10/2024 8:47 AM CDT 25 mg Given 09/09/2024 10:44 AM CDT 25 mg Given 09/08/2024 10:08 AM CDT 25 mg nitroglycerin SL tablet 0.4-0.8 mg (Nitrostat) 0.4-0.8 mg, sublingual, Once, On Thu09/09/24 at 1545, For 1 dose, Imaging Protocol Orders, Dose per Radiant Medication Guidelines Dissolve under the tongue. Do NOT crush, chew, split or swallow tablet. Given 09/09/2024 3:41 PM CDT 0.4 mg sertraline tablet 100 mg (Zoloft) 100 mg, oral, Daily, First dose on Thu09/06/24 at 0900 Given 09/10/2024 8:47 AM CDT 100 mg Given 09/09/2024 10:45 AM CDT 100 mg Given 09/08/2024 10:08 AM CDT 100 mg sodium chloride (PF) 0.9 % injection 1-100 mL 1-100 mL, intravenous, Once, On Thu09/09/24 at 1545, For 1 dose, Imaging Protocol Orders, Dose per Radiant Medication Guidelines Given 09/09/2024 3:48 PM CDT 38 mL sodium chloride 0.9 % injection 10 mL [...] Given 09/09/2024 10:42 AM CDT 3 mL sodium chloride 0.9 % injection 3 mL 3 mL, intravenous, Every 12 hours scheduled, First dose on Thu09/06/24 at 0900, Peripheral Intravenous Catheter and Rapid Infusion Catheter, when no infusion to maintain patency Given 09/08/2024 8: 33 PM CDT 3 mL Given 09/08/2024 10:12 AM CDT 3 mL Given 09/07/2024 8:46 AM CDT 3 mL sodium chloride 0.9 % injection 3 mL 3 mL, intravenous, Every 12 hours scheduled, First dose on Thu09/06/24 at 0900, Peripheral Intravenous Catheter and Rapid Infusion Catheter, when no infusion to maintain patency Given 09/08/2024 8: 32 PM CDT 3 mL Given 09/08/2024 10:11 AM CDT 3 mL Given 09/07/2024 8:46 AM CDT 3 mL technetium Tc 99m albumin aggregated injection (Tc-99m MAA) 3.6-8.8 millicurie, intravenous, Once, On Thu09/09/24 at 1415, For 1 dose, Imaging Protocol Orders Given 09/09/2024 1:55 PM CDT 4.4 millicurie s torsemide tablet 40 mg (Demadex) 40 mg, [...] - Mechanical, Therapy type: Continuation Warfarin therapy warfarin tablet 10 mg (Jantoven) 10 mg, oral, Once, On Thu09/07/24 at 1700, For 1 dose, HAZARDOUS - Handle with care. Swallow whole. Do NOT chew or split tablet. May crush using the SelectHub system. Given 09/07/2024 7:29 PM CDT 10 mg warfarin tablet 10 mg (Jantoven) 10 mg, oral, Once, On Teresa 09/08/24 at 1700, For 1 dose, HAZARDOUS - Handle with care. Swallow whole. Do NOT chew or split tablet. May crush using the RxCrush system. Given 09/08/2024 5:50 PM CDT 10 mg warfarin tablet 10 mg (Jantoven) 10 mg, oral, Once, On Thu09/09/24 at 1700, For 1 dose, HAZARDOUS - Handle with care. Swallow whole. Do NOT chew or split tablet. May crush using the RxCrush system. Given 09/09/2024 5:02 PM CDT 10 mg xenon Xe 133 gas (Xe-133 Xenon) 13.5-44 millicurie, inhalation, Once, On Thu09/09/24 at 1415, For 1 dose, Imaging Protocol Orders Given 09/09/2024 1:54 PM CDT 15.4 millicuri es documented in this encounter Active and Recently Administered Medications Times are shown in CDT. Scheduled Medication Order 09/08/2024 09/09/2024 09/10/2024 enoxaparin injection 80 mg (Lovenox) 80 mg (rounded from 78.7 mg = 1 mg/kg 78.7 kg Dosing weight), subcutaneous, 2 times daily, First dose on Thu09/07/24 at 2100, For 10 doses 1008 (Given - Provider: Maren Townsend R.N.)2031 (Given - Provider: Hemal Martins R.N.) 1045 (Given - Provider: Maren Townsend R.N.)2017 (Given - Provider: Marilou Calix R.N.) 0844 (Given - Provider: Clifton Lopes M.S., R.N., [facility]) furosemide injection 40 mg (Lasix) (COMPLETED) [...] (Given - Provider: Clifton Lopes M.S., R.N., [facility]) nitroglycerin SL tablet 0.4-0.8 mg (Nitrostat) (COMPLETED) 0.4-0.8 mg, sublingual, Once, On Thu09/09/24 at 1545, For 1 dose, Imaging Protocol Orders, Dose per Radiant Medication Guidelines Dissolve under the tongue. Do NOT crush, chew, split or swallow tablet. 1541 (Given - Provider: Neo Gallo M.S.N., R.N.) sertraline tablet 100 mg (Zoloft) 100 mg, oral, Daily, First dose on Thu09/06/24 at 0900 1008 (Given - Provider: Maren Townsend R.N.) 1045 (Given - Provider: Maren Townsend R.N.) 0847 (Given - Provider: Clifton Lopes M.S., R.N., [facility]) sodium chloride (PF) 0.9 % injection 1-100 mL (COMPLETED) 1-100 mL, intravenous, Once, On Thu09/09/24 at 1545, For 1 dose, Imaging Protocol Orders, Dose per Radiant Medication Guidelines 1548 (Given - Provider: Sahara Oquendo.S.N., R.N.) sodium chloride 0.9 % injection 3 mL 3 mL, intravenous, Every 12 hours scheduled, First dose on Thu09/06/24 at 0900, Peripheral Intravenous Catheter and Rapid Infusion Catheter, when no infusion to maintain patency 1011 (Given - Provider: Maren Townsend R.N.)2033 (Given - Provider: Hemal Martins R.N.) 1042 (Given - Provider: Maren Townsend R.N.)2101 (Given - Provider: Marilou Calix R.N.) 0849 (Given - Provider: Clifton Lopes M.S., R.N., [facility]) sodium chloride 0.9 % injection 3 mL [...] 1355 (Given - Provider: Nidia Marin C.N.M.TArmando, [facility]) torsemide tablet 40 mg (Demadex) 40 mg, [...] - Mechanical, Therapy type: Continuation Warfarin therapy 1699 (Due) 170 (Due) warfarin tablet 10 mg (Jantoven) (COMPLETED) 10 mg, oral, Once, On Teresa 09/08/24 at 1700, For 1 dose, HAZARDOUS - Handle with care. Swallow whole. Do NOT chew or split tablet. May crush using the RxCrush system. 175 (Given - Provider: Maren Townsend R.N.) warfarin tablet 10 mg (Jantoven) (COMPLETED) 10 mg, oral, Once, On Thu09/09/24 at 1700, For 1 dose, HAZARDOUS - Handle with care. Swallow whole. Do NOT chew or split tablet. May crush using the RxCrush system. 1701 (Given - Provider: Maren Townsend R.N.) xenon Xe 133 gas (Xe-133 Xenon) (COMPLETED) 13.5-44 millicurie, inhalation, Once, On Thu09/09/24 at 1415, For 1 dose, Imaging Protocol Orders 1354 (Given - Provider: Andrew Greenwood, [facility]) PRN Medication Order 09/08/2024 09/09/2024 09/10/2024 [...] injection documented in this encounter Care Teams Pipeman Relationship Specialty Start Date End Date Elsewhere, Pcp PCP - General Family Medicine 11/27/20 Mary Ann Sol 2000 [place] [id number] [employer] 01/17/19 documented as of this encounter
--- OUTSIDE RECORDS SUMMARY | 2024-09-13 03:59 | XMS_ITS | Clinical Summary ---
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 For routine questions regarding patient records, call [phone] during business hours, M-F 8:00 AM - 5:00 PM Central Time. Record requests for emergency care only can be directed to [phone] at any time.[facility] Allergies No known active allergies Medications * [...] mg all other days of the week Active Additional Information Patient taking differently:5-10 mg oral Daily,5 mg on Thu/Thu/Thu and 10 mg all other days of the week, Reported on 09/06/2024 psyllium (METAMUCIL) 0.52 gram capsule Take 1-2 capsules by mouth daily. Active torsemide (Demadex) 20 mg tablet Take 40 mg by mouth daily. Active metoprolol succinate (Toprol XL) 25 mg 24 hr tablet Take 1 tablet (25 mg total) by mouth daily. Do not crush or chew. 30 tablet 3 5 Active enoxaparin (Lovenox) 80 mg/0.8 mL injection Inject 0.8 mL (80 mg total) under the skin 2 (two) times a day for 4 doses. 3.2 mL 09/10/2024 2:10 PM CDT 5 025 Active metoprolol succinate (Toprol XL) 50 mg 24 hr tabletIndicatio ns:Palpitations ,Supraventricul ar Tachycardia, Unspecified (HCC) Take 1 tablet (50 mg total) by mouth daily. Do not crush or chew. 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 Petar Clark Followed by Dr Alvarado in [place] yearly February Other Specified Extrapyramidal And Movement Diso rders 10/04/2009 Resolved Problems Problem Noted Date Diagnosed Date Resolved Date Gastroesophageal Reflux Disease NOS 04/03/2021 09/20/2021 Pneumonia 11/25/2020 09/06/2024 Shortness Of Breath 03/15/2013 09/07/19 25 Other Abnormal Glucose 10/12/200809/06 Encounters Date Type Department Care Team Description 09/08/2024 Clinical Communication [facility] [address] [place] [phone] RiggerLobito M.D. 09/08/2024 Clinical Communication [facility] [address] [place] [phone] Deanne Kilpatrick M.D., M.S. 09/08/2024 Clinical Communication [facility] [address] [place] [phone] Deanne Kilpatrick M.D., M.S. 09/07/2024 4:40 PM CDT - 09/07/2024 5:55 PM CDT Surgery Division of Cardiovascular Diseases in [place], [place] [address] [place] [phone] Mynor Perez M.D. HEART CATHETERIZATION - RIGHT 09/06/2024 2:35 PM CDT Ancillary Procedure Department of Nursing 09/06/2024 2:30 PM CDT Ancillary Procedure Department of Nursing 09/06/2024 2:25 PM CDT Ancillary Procedure Department of Nursing 09/06/2024 2:44 AM CDT - 09/10/2024 2:13 PM CDT Hospital Encounter [facility], Tenth Floor [address] [place] [phone] Khoi Zacarias APRN, C.N.P. Lerman, Amir, M.D. Bell, Malcolm R, M.D. Syncope (Primary Dx); 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); Decline Functional Status [R53.81] Discharge Disposition: Home or Self Care 09/05/2024 12:45 AM CDT - 09/06/2024 1:04 AM CDT Emergency [facility] Emergency Department [address] [place] [phone] Discharge Disposition: ED Dismiss - Never Arrived 09/05/2024 Intake [facility] 08/04/2024 11:08 AM CDT - 08/04/2024 11:59 PM CDT Hospital Encounter Department of Cardiovascular Diseases in [place], [place] [address] [place] [phone] Shad Whittaker M.D. Discharge Disposition: Home or Self Care 07/08/2024 7:50 AM COW RIDER - 07/08/2024 11:59 PM COW RIDER Hospital Encounter Department of Cardiovascular Diseases in [place], [place] [address] [place] [phone] Melba Luna M.B.B.S. Discharge Disposition: Home or Self Care from Last 3 Months Immunizations Immunization Administration Dates Next Due Influenza Split 02/01/2007 PPSV23 02/01/2007 Family History Medical History Relation Name Comments Melanoma Brother 1 Quan dykema Sleep apnea Brother 1 Quan dykema Colon polyps Brother 2 Sheng dykema Melanoma Sister Emmy rj Relation Name Status Comments Brother 1 Quan dykema Brother 2 Sheng dykema Sister Emmy ellies Social History Tobacco Use Types Packs/Day Years Used Date Smoking Tobacco: Former Cigarettes 1 50 0 05/04/1954 - 05/04/2004 Smokeless Tobacco: Never Tobacco Cessation:Counseling Given: Not Answered Alcohol Use Standard Drinks/Week Comments Yes 5 (1 standard drink = 0.6 oz pur e alcohol) [facility] Utilities Answer Date Recorded In the past [...] How often do you attend chur or mosque services? More than 4 times per year 05/08/2022 Do you belong to any clubs o r organizations such as mormon groups, unions, fraternal or athletic groups, or [...] care, and heating? Not very hard 05/08/2022 [facility] [place] of Occupat ional Health - Occupational Stress [...] your living situation today? I have a [facility] to live 09/06/2024 Education Answer Date Recorded What is the highest level of school you have completed or the highest degree you have received? Bachelor's degree (e.g., BA, AB, BS) 01/13/2019 Sex and Gender Information Value Date Recorded Sex Assigned at Male 08/22/2018 2:26 PM CDT Legal Sex Male 11:09 AM COW RIDER Gender Identity Male 08/22/2018 2:26 PM CDT [...] Mass Index 23.88 09/06/2024 5:45 AM CDT Plan of Treatment Upcoming Encounters Date Type Department Care Team (Latest Contact Info) Description 09/14/2024 8:30 AM CDT Appointment Department of Radiology, [facility] in [place], [place] [address] [place] [phone] Marquita Lo M.D. [address] [place] [phone] 09/14/2024 9:10 AM CDT Appointment Department of Laboratory Medicine and Pathology, [facility] in [place], [place] [address] [place] [phone] Marquita Lo M.D. [address] [place] [phone] 09/14/2024 9:30 AM CDT Appointment Department of Cardiac Rehabilitation in [place], [place] [address] [place] [phone] Marquita Lo M.D. [address] [place] [phone] 09/14/2024 2:00 PM CDT Comprehensive Visit Department of Cardiovascular Medicine in [place], [place] [address] [place] [address] [place] [phone] Tom Plascencia M.D. [address] [place] [phone] Health Maintenance Due Date Last Done Comments Zoster Vaccines (2 of 3) 06/04/2006 04/09/2006 RSV vaccine - (32-36 weeks) or 60+ years (1 - 1-dose 75+ series) 11/10/2014 Depression Screening (Annual PHQ-2) 05/04/2024 DTaP,Tdap,and Td Vaccines (3 - Td or Tdap) 11/01/2024 11/01/2014, 11/01/2012, 11/24/2003, Additional history exists COVID-19 Vaccine ( season) 2024 05/10/2024, 04/23/2023, 02/11/2022, Additional history exists Creatinine Level (Kidney Function Test) 09/10/2025 09/10/2024, 09/09/2024, 09/08/2024, Additional history exists Potassium Level 09/10/2025 09/10/2024, 05/0 01/2025, 09/08/2024, Additional history exists Sodium Level 09/10/2025 09/10/2024, 05/0 01/2025, 09/08/2024, Additional history exists Pneumococcal vaccine (50+ years) Completed 08/07/2014, 02/01/2007, 02/17/2006 Influenza Vaccine Completed 05/10/2024, , 02/11/2022, Additional history exists Fall Risk Screen (Annual) Completed 05/11/2024 IPV Vaccines Aged Out No longer eligi ble based on patient's age to complete this topic Medical Devices Implanted Type Area Gi Tech Device Identifier Shelf Expiration Date Model / Serial / Lot Lead Guidant Baron [id number] Implanted:11/02 (Quantity not on file) Cardiac Lead Other/Legacy - See Implant Description Guidant / [id number] / Description:LEAD Guidant Cor p [id number] Flextend Lead Guidant Baron [id number] Implanted:11/02 (Quantity not on file) Cardiac Lead Other/Legacy - See Implant Description Guidant / [id number] / Description:LEAD Guidant Cor p [id number] Flextend Valve Aortic Carbomedics 25mm - Chappell [id number] Implanted:Qty: 1 on 09/10/2007 Cardiac Valve Prosthesis Aorta Carbomedics Description:Device Manufactu rer - Carbomedics. Body Location - Other. Aortic. Device Status Text - [id number]. Ring Annuloflex Carbomedics 28mm - Chappell [id number] Implanted:Qty: 1 on 11/01/2014 Cardiac Valve Prosthesis Other/Legacy - See Implant Description Carbomedics Description:Device Manufactu rer - Carbomedics. Body Location - Other. Tricuspid. Device Status Text - [id number]. [place] Eddie Fuzzy 6 X 1 - Chappell [id number] Implanted:Qty: 1 on 09/10/2007 Mesh or Patch Impra Description:Device Manufactu rer - Impra. Device Status Text - [id number]. [place] Eddie Fuzzy 1 X 1 - Chappell 1667 Implanted:Qty: 2 on 09/10/2007 Mesh or Patch Cruise Compare Description:Device Manufactu rer - [facility] [facility]. Device Status Text - [id number]. [facility] Data - [id number]. Ocular Lens Ocular Lens Bilateral: Eye Pacemaker Ilion Scientific [id number] Implanted:0 05/2015 (Quantity not on file) Pacemaker Other/Legacy - See Implant Description Ilion Scientific / [id number] / Description:Pacemaker Ilion Scientific [id number] ACCOLADE EL Hemashield Woven-Str 28 X 30 - Chappell [id number] Implanted:Qty: 1 on 09/10/2007 Vascular Graft Aorta Other/Legacy - See Implant Description Description:Device Manufactu rer - [employer]ox. Body Location - Other. Aortic. Device Status Text - [id number]. Explanted Type Area Gi Tech Device Identifier Shelf Expiration Date Model / Serial / Lot Pacemaker Guidant Baron [id number] Implanted:11/29 (Quantity not on file) Explanted:01/02 (Quantity not on file) Pacemaker Chest Guidant / [id number] / Description:Pacemaker Guidan t Baron [id number] Procedures Procedure Name Priority Date/Time Associated Diagnosis Comments MAGNESIUM, S Routine 09/10/2024 5:00 AM CDT BASIC METABOLIC PANEL, S/P Routine 09/10/2024 5:00 AM CDT CBC WITHOUT DIFFERENTIAL, B Routine 09/10/2024 5:00 AM CDT PROTHROMBIN TIME (PT), P Routine 09/10/2024 5:[address] CARDIAC [...] OXYGEN THERAPY Routine 09/08/2024 8:01 AM CDT BASIC METABOLIC PANEL, S/P Routine 09/08/2024 6:33 AM CDT CBC WITHOUT DIFFERENTIAL, B Routine 09/08/2024 6:33 AM CDT PROTHROMBIN TIME [...] OXYGEN THERAPY Routine 09/07/2024 8:01 AM CDT THYROID-STIMULATING HORMONE-SENSITIVE (S-TSH) Routine 09/07/2024 4:40 AM CDT MAGNESIUM, S Routine 09/07/2024 4:40 AM CDT IRON AND TOT IRON-BINDING CAPACITY, S/P Routine 09/07/2024 4:40 AM CDT LIPID PANEL, S Routine 09/07/2024 4:40 AM CDT COMPREHENSIVE [...] DOPPLER COLOR Routine 09/06/2024 3:40 PM CDT NURSING IMAGE EXAM Routine 09/06/2024 2: 27 PM CDT NURSING IMAGE EXAM Routine 09/06/2024 2: 27 PM CDT NURSING IMAGE EXAM Routine 09/06/2024 2: 25 PM CDT US CAROTID BILATERAL RAD - [...] OXYGEN THERAPY Routine 09/06/2024 5:48 AM CDT D-DIMER, P Routine 09/06/2024 5:06 AM CDT PROTHROMBIN TIME (PT), P STAT 09/06/2024 5:06 AM CDT TROPONIN T, 2H/6H REFLEX, 5TH GEN, P Timed 09/06/2024 5:06 AM CDT GLUCOSE POCT, B STAT 09/06/2024 2:58 AM CDT TROPONIN T, BASELINE, 5TH GEN, P STAT 09/06/2024 2:58 AM CDT CBC WITH DIFFERENTIAL, B STAT 09/06/2024 2:58 AM CDT BASIC METABOLIC PANEL, S/P STAT 09/06/2024 2:58 AM CDT ECG Routine 09/06/2024 2:47 AM CDT OUTSIDE DX CHEST Routine 09/05/2024 9:[address] NEURO Routine 09/05/2024 8:45 PM CDT INTERFACED REMOTE DEVICE CHECK Routine 08/04/2024 11:08 AM CDT INTERFACED REMOTE DEVICE CHECK Routine 07/08/2024 7:50 AM COW RIDER from Last 3 Months Results * (ABNORMAL) Prothrombin Time (PT) (09/10/2024 5:00 AM CDT) Only the most recent of6 resultswithin the time period is included. Prothrombin Time, P 19.2(H) 9.4 - 12.5 sec 09/10/2024 6:18 AM CDT DTL INR 1.7 0.9 - 1.1 09/10/2024 6:18 AM CDT DTL Comment: ----ADDITIONAL INFORMATION---- Standard intensity warfarin therapeutic range: 2.0 to 3.0 High intensity warfarin therapeutic range: 2.5 to 3.5 Blood (Blood, Venous) 09/10/2024 5:00 AM CDT 09/10/2024 6:01 AM CDT us Marquita Lo M.D. LAB BLOOD ADD-ON Final Result [facility] [address] [place] [address], [place] DTL [facility] [address] [place] [address] * (ABNORMAL) CBC without Differential (09/10/2024 5:00 AM CDT) Only the most recent of3 resultswithin the time period is included. Hemoglobin 9.8(L) 13.2 - 16.6 g/dL 09/10/2024 [...] López M.D. LAB BLOOD ADD-ON Final Result [facility] [address] [place] [address], [facility] [address] [place] [address] * (ABNORMAL) Magnesium (09/10/2024 5:00 AM CDT) Only the most recent of2 resultswithin the time period is included. Magnesium, S 2.4(H) 1.7 - 2.3 mg/dL 09/10/2024 6:46 AM CDT DTL Blood (Blood, Venous) 09/10/2024 5:00 AM CDT 09/10/2024 6:15 AM CDT Raz López M.D. LAB BLOOD ADD-ON Final Result [facility] [address] [place] [address], [facility] DTL [facility] [address] [place] [address] * (ABNORMAL) Basic Metabolic Panel (09/10/2024 5:00 AM CDT) Only the most recent of3 resultswithin the time period is included. [facility] Potassium, S 4.7 3.6 - 5.2 mmol/L [...] López M.D. LAB BLOOD ADD-ON Final Result [facility] [address] [place] [address], [place] DTL [facility] [address] [place] [address] * CT Cardiac Angiogram with Coronary Arteries [...] 5: 100%, Occluded N: Non-diagnostic study Plaque [place]: P1: Mild (CACS1-100/SIS1-2/1-2 vessels mild plaque) P2: Moderate ([id number]/SIS3-4/1-2 vessels moderate; 3 vessels mild plaque) P3: Severe ([id number]/SIS5-7/3 vessels moderate; 1 vessel severe plaque) P4: [...] Similar bilateral noncalcified solid pulmonary nodules, including [id number] mm greatest dimension nodule in the peripheral [...] 5: 100%, Occluded N: Non-diagnostic study Plaque [place]: P1: Mild (CACS1-100/SIS1-2/1-2 vessels mild plaque) P2: Moderate ([id number]/SIS3-4/1-2 vessels moderate; 3 vessels mildplaque) P3: Severe ([id number]/SIS5-7/3 vessels moderate; 1 vessel severeplaque) P4: Extensive [...] in the settingof pulmonary emphysema. us Raz López M.D. IMG CT PROCEDURES Final Result * NM Lung [...] increased in size since04/19/2024. Raz López M.D. [facility] PROCEDURES Final Result * (ABNORMAL) Renal Function Panel (09/09/2024 9:42 AM CDT) Pathologist [facility] Potassium, S 4.8 3.6 - 5.2 mmol/L [...] López M.D. LAB [place]OD [place] [address], [facility] [address] [place] [address] * ECG 12 Lead (09/09/2024 7:54 AM CDT) Only the most recent of3 resultswithin the time period is included. Ventricular Rate ECG/Min 70 BPM MUSE QRSD Interval 170 ms MUSE QT Interval 490 ms MUSE QTC Interval 529 ms MUSE R V[place] -71 degrees MUSE T Wave [place] 104 degrees MUSE 09/09/2024 7:54 AM CDT [...] change was found Reviewed by VALERIE Ribeiro us Zhou Meredith M.D. ECG ORDERABLES Final Result MUSE NA * RIGHT HEART CATHETERIZATION, DRUG STUDY (09/07/2024 [...] Authenticator Blane ECG ORDERABLES Final Result * Lipid Panel (09/07/2024 4:40 AM CDT) [...] 4:40 AM CDT 09/07/2024 5:36 AM CDT Courntey Faulkner APRN.NEverette., M.S.N. LAB BLOOD ADD-ON Final Result [facility] [address] [place] [address], [facility] [address] [place] [address] * Iron and Total Iron-Binding Capacity (09/07/2024 [...] APRN.N.P., M.S.N. LAB BLOOD ADD-ON Final Result Performing Organization Address [facility]/[place] [address] * (ABNORMAL) S-TSH (Thyroid-Stimulating Hormone - Sensitive) (09/07/2024 4:40 AM CDT) Pathologist [facility] TSH, Sensitive 5.1(H) 0.3 - 4.2 mIU/L 09/07/2024 6:00 AM CDT DTL Blood (Blood, Venous) 09/07/2024 4:40 AM CDT 09/07/2024 5:36 AM CDT Myrtle Alejandro APRN, C.N.P., M.S.N. LAB BLOOD ADD-ON Final Result Performing Organization Address [facility] Co de Phone Number [facility] [address] [place] [address], [place] [address] * (ABNORMAL) Comprehensive Metabolic Panel (09/07/2024 4:40 AM CDT) Pathologist [facility] Potassium, S 4.7 3.6 - 5.2 mmol/L [...] C.N.P., M.S.N. LAB BLOOD ADD-ON Final Result [facility] [address] [place] [address], [facility] [address] [place] [address] * (ABNORMAL) CBC with Differential, Blood (09/07/2024 4:39 AM CDT) Only the most recent of2 resultswithin the time period is included. Hemoglobin 9.5(L) 13.2 - 16.6 g/dL 09/07/2024 [...] C.N.P., M.S.N. LAB BLOOD ADD-ON Final Result [facility] [address] [place] [address], [facility] DTL [facility] [address] [place] [address] [facility] [address] [place] [address] * (ABNORMAL) Hemoglobin A1c (09/07/2024 4:39 AM [...] BLOOD ADD-ON Final Result Performing Organization Address [facility]/ZIP Co de Phone Number [address] [place] [address] * (ABNORMAL) T3 (Triiodothyronine), Total (09/07/2024 4:35 AM CDT) T3 (Triiodothyroni ne), Total, S 60(L) 80 - 200 ng/dL 09/07/2024 8:48 AM CDT DT Blood 09/07/2024 4:35 AM CDT 09/07/2024 8:13 AM CDT Deanne Kilpatrick M.D., M.S. LAB BLOOD ADD-ON F inal Result Performing Organization Address City/[facility]/ZIP Co de Phone Number [address] [place] [address] * T4 (Thyroxine), Free (09/07/2024 4:35 AM CDT) T4 (Thyroxine), Free, S 1.1 0.9 - 1.7 ng/dL 09/07/2024 8:48 AM CDT DTL Blood (Blood, Venous) 09/07/2024 4:35 AM CDT 09/07/2024 8:13 AM CDT Marquita Lo M.D. LAB BLOOD ADD-ON Final Result [facility] [address] [place] [address], [facility] DTL [facility] [address] [place] [address] * (TTE) 2D ECHO DOPPLER COLOR (09/06/2024 3:40 PM CDT) Pathologist [facility] Ejection Fraction 63 MC CV EIMS LV [...] Normal left ventricular chamber size. Calculated ejection %. 9. Abnormal ventricular septal motion - post-operative without otherregional wall motion abnormalities. 10. Severely enlarged inferior vena cava size with no inspiratorycollapse. 11. Tiny posterior pericardial effusion. 12. Compared to the report of 04/21/2024 no significant change hasoccurred. Side by side comparison of images performed. Findings Echo performed at the patient's bedside. Echocardiogram performed per leftventricular function protocol. Last full echocardiogram [id number]/19/2024. LEFT VENTRICLE:Normal left ventricular chamber size. Calculated [...] the Order-Level Documents. Marquita Lo M.D. CV ECHO PROCEDURES Final Result * Leg, left-Nursing Image Exam (09/06/2024 2:27 PM CDT) Only the most recent of3 resultswithin the time period is included. 09/06/2024 2:24 PM CDT Narrative IIMS - 09/06/2024 2:27 PM CDT This order has been created and auto-finalized to support the import of images acquired without order. The clinical documentation to support these images can be found on the encounter that produced images. us Provider Not In System IMG NON RAD IMAGING PROCE DURES Final Result IIMS NA * US Carotid Bilateral (09/06/2024 12:35 PM [...] normal distal ICA in accordance with [place] Symptomatic Carotid Endarterectomy Trial (NASCET). Procedure Note [...] witha 50-69% stenosis. us Marquita Lo M.D. [facility] US PROCEDURES Final Result * CARDIOVASCULAR IMPLANTABLE ELECTRONIC DEVICE - NO CHARGE (09/06/2024 7:44 AM CDT) Date Time Interrogation Session [id number] [facility] Implantable Pulse Generator Gi [employer] [facility] Implantable Pulse Generator Type Pacemaker [facility] Implantable Pulse Generator Model L321 [facility] Implantable Pulse Generator Serial Number [id number] [facility] Implantable Pulse Generator Implant Date [id number] [facility] Abelino Statistic RA Percent Paced 0.00 [facility] Abelino Statistic RV Percent Paced 99.00 [facility] Lead Channel Setting Sensing Sensitivity 0.15 [facility] Lead Channel Measurements Date and Time [id number] [facility] Lead Channel Setting Sensing Sensitivity 4.00 [facility] Lead Channel Impedance Value 1,205 [facility] Lead Channel Pacing Threshold Amplitude 1.800 [facility] Lead Channel Pacing Threshold Pulse Width 0.4 [facility] Lead Channel Measurements Date and Time [id number] [facility] Lead Channel Setting Pacing Amplitude 2.400 [facility] Lead Channel Setting Pacing Pulse Width 0.4 [facility] Abelino Setting Mode (NBG Code) VVIR [facility] Ventricular chambers paced during [place] pacing. RV [facility] Abelino Setting Lower Rate Limit 70 [facility] Abelino Setting AT Mode Switch Rate 170 [facility] Abelino Setting Maximum Sensor Rate 110 [facility] Zone Setting Type Category VT [facility] Murj Rate 1 160 [facility] Zone Setting Status Monitor [facility] Murj Zone ID 1 [facility] Implantable Lead Gi Tech Guidant [facility] Implantable Lead Model 4086 Flextend [facility] Implantable Lead Location Right Atrium [facility] Implantable Lead Connection Status Connected [facility] Implantable Lead Serial Number [id number] [facility] Implantable Lead Implant Date [id number] [facility] Implantable Lead Special Function Lead length: 45.00 cm [facility] Implantable Lead Gi Tech Guidant [facility] Implantable Lead Model 4087 Flextend [facility] Implantable Lead Location Right Ventricle [facility] Implantable Lead Connection Status Connected [facility] Implantable Lead Serial Number [id number] [facility] Implantable Lead Implant Date [...] episodes since last remote. * Presenting rhythm: SVP MARKETING @ 70 bpm * Underlying rhythm: [employer]P [employer]ETING @ 30 bpm * Heart Rate Histograms [...] No prodromal episodes. He was taken to [facility] where he had some NSVT at [...] VHRepisodes since last remote. * Presenting rhythm: SVP MARKETING @ 70 bpm * Underlying rhythm: SVP MARKETING@ 30 bpm * Heart Rate Histograms reviewed * Device Function and programmed parameters reviewed Title: Non-sustained Ventricular Tachycardia * Total episodes: 3 * Most recent episode was 09/03 @ 1030. EGM suggests NSVT for 10s secondswith V rate around 170 bpm. The other EGM available for review from 08/23shows NSVT for 3 seconds @ 200 bpm. Plan: PHYSICIAN'S ASSESSMENT AND PLAN: Dr. Sanchez's note Patient presentswith syncopal episode at 8:30 PM. No correlative episodes detected. He wasputting his dishes away when episode occurred. He lost consciousness for afew seconds ( witnessed episode). No prodromal episodes. He was taken to [facility] where hehad some NSVT at 1030 which is noted by device. I spoke with ER team rio information. They are continuing ongoing testing and [...] amplitude and pacingthreshold data was reviewed. us Khoi Zacarias APRN, C.N.P. CV IMPLANTABLE CA [...] BLOOD ADD-ON Final Result Performing Organization Address [facility] Co de Phone Number [facility] [address] [place] [address] * (ABNORMAL) Troponin T, 2 Hour with 6 Hour Reflex, 5th Gen (09/06/2024 5:06 AM CDT) Pathologist [facility] Troponin T, 2 hr, 5th gen 48(H) <=15 ng/L 09/06/2024 5:27 AM CDT [facility] 2H Delta 2 ng/L 09/06/2024 5:27 AM CDT [facility] Comment:6 hour collection no t indicated. 2H Delta Interp Not Changing 09/06/2024 5:27 AM CDT [facility] 09/06/2024 5:06 AM CDT 09/06/2024 5:10 AM CDT Khoi Zacarias APRN, C.N.P. LAB BLOOD TROPONI N Final Result Performing Organization Address City/[facility]/ZIP Co de Phone Number [address] [place] [address] * (ABNORMAL) D-Dimer (09/06/2024 5:06 AM CDT) D-Dimer, P 897(H) <=500 ng/mL FEU 09/06/2024 8:55 AM CDT [facility] Comment: D-dimer concentrations increase with age. For [...] BLOOD ADD-ON Final Result Performing Organization Address City/[facility]/ZIP Co de Phone Number [facility] [address] [place] [address] * (ABNORMAL) Troponin T, Baseline with 2 Hour/6 Hour Reflex Biomarker Panel (09/06/2024 2:58 AM CDT) Pathologist [facility] Troponin T, Baseline, 5th gen 46(H) <=15 ng/L 09/06/2024 3:32 AM CDT [facility] Blood (Blood, Venous) 09/06/2024 2:58 AM CDT 09/06/2024 3:02 AM CDT Khoi Zacarias APRN, C.N.P. LAB BLOOD TROPONI N Final Result Performing Organization Address [facility]/ZIP Co de Phone Number [facility] [address] [place] [address], [place] [address] * Glucose, POCT (09/06/2024 2:58 AM CDT) Glucose, POCT, B 108 70 - 140 mg/dL 09/06/2024 3:35 AM CDT [facility] Site Venstick 09/06/2024 3:35 AM CDT [facility] Blood (Blood, Capillary) 09/06/2024 2:58 AM CDT 09/06/2024 2:58 AM CDT Khoi Zacarias APRN, C.N.P. LAB POCT ORDERABL ES-MANUAL Final Result Performing Organization Address City/[facility]/ZIP Co de Phone Number POC [facility] [address] [place] [address], [facility] PCLX [facility] POC [address] [place] [address] * XR chest 2V-Outside Chest Xray (09/05/2024 9:00 PM CDT) 09/05/2024 8:56 PM CDT Narrative [facility] - 09/06/2024 12:17 AM CDT This order has been created and auto-finalized to support the import of outside images. If available, original interpretation can be found on the Media Tab in Chart Review, in Document Viewer, as an image in InfinityView or as an Addendum. If a re-interpretation or overread is required please follow defined workflow. Provider Not In System IMG DIAGNOSTIC IMAGING CA OCEDURES Final Result Performing Organization Address City/[facility]/ZIP Co de Phone Number [facility] NA * CT HEAD/BRAIN WO CON-Outside CT Neuro (09/05/2024 8:45 PM CDT) 09/05/2024 8:4 1 PM CDT Narrative [facility] - 09/06/2024 12:21 AM CDT This order has been created and auto-finalized to support the import of outside images. If available, original interpretation can be found on the Media Tab in Chart Review, in Document Viewer, as an image in InfinityView or as an Addendum. If a re-interpretation or overread is required please follow defined workflow. us Provider Not In System IMG CT PROCEDURES Final R esult [facility] NA Anabell CASTAÑEDA CARDIAC DEVICE INTERROGATION (08/04/2024 11:08 AM CDT) Only the most recent of2 resultswithin the time period is included. Date Time Interrogation Session [id number] [facility] Type Interrogation Session Remote Scheduled [facility] Implantable Pulse Generator [employer] LAB SYSTEM Implantable Pulse Generator Type Pacemaker [facility] Implantable Pulse Generator Model L321 [facility] Implantable Pulse Generator Serial Number [id number] [facility] Implantable Pulse Generator Implant Date [id number] [facility] Battery Remaining Percentage 81.00 % [facility] Battery Remaining Longevity 84.0 mo [facility] Battery Status Beginning of Service [facility] Abelino Statistic RA Percent Paced 0.00 [facility] Abelino Statistic RV Percent Paced 99.00 [facility] Lead Channel Setting Sensing Sensitivity 0.15 [facility] Lead Channel Measurements Date and Time [id number] [facility] Lead Channel Sensing Intrinsic Amplitude 4.500 [facility] Lead Channel Setting Sensing Sensitivity 4.00 [facility] Lead Channel Impedance Value 1,240 [facility] Lead Channel Pacing Threshold Amplitude 2.000 [facility] Lead Channel Pacing Threshold Pulse Width 0.4 [facility] Lead Channel Measurements Date and Time [id number] [facility] Lead Channel Setting Pacing Amplitude 2.400 [facility] Lead Channel Setting Pacing Pulse Width 0.4 [facility] Abelino Setting Mode (NBG Code) VVIR [facility] Abelino Setting Lower Rate Limit 70 [facility] Abelino Setting AT Mode Switch Rate 170 [facility] Abelino Setting Maximum Sensor Rate 110 [facility] Lead Channel Setting Sensing Polarity Bipolar [facility] Lead Channel Setting Pacing Polarity Bipolar [facility] Lead Channel Pacing Threshold Polarity Bipolar [facility] Zone Setting Type Category VT [facility] Murj Rate 1 160 [facility] Zone Setting Status Monitor [facility] Murj Zone ID 1 [facility] Implantable Lead [employer] LAB SYSTEM Implantable Lead Model 4086 Flextend [facility] Implantable Lead Location Right Atrium [facility] Implantable Lead Connection Status Connected [facility] Implantable Lead Serial Number [id number] [facility] Implantable Lead Implant Date [id number] [facility] Implantable Lead Special Function Lead length: 45.00 cm [facility] Implantable Lead [employer] [facility] Implantable Lead Model 4087 [employer]xtend [facility] Implantable Lead Location Right Ventricle [facility] Implantable Lead Connection Status Connected [facility] Implantable Lead Serial Number [id number] [facility] Implantable Lead Implant Date [...] M.D. 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 See document viewer. 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
--- NOTE | 2024-09-13 04:09 | ED.GENADULT ---
HPI - General Adult General Chief complaint: Abdominal Pain Stated complaint: left side abdominal pain Time Seen by Provider: 09/13/24 04:06 History of Present Illness HPI narrative: L sided abd. pain. denies radiation, denies nausea or changes with bowel/bladder. denies surgical hx. 83 -year-old man presenting to the emergency department with concern of left lower abdominal pain. Presented to this emergency department week ago following a fall. This was suspected to been a syncopal episode. Demonstrated ventricular bigeminy and unable to interrogate pacemaker was transferred to [facility]. About 2 - 3 days ago well still hospitalized began to have soreness in his left abdomen. Became much more intense last night. Movement, laughing, talking worsens. No fever. Not constipated. History of atrial fibrillation with pacer placement. History of aortic valve replacement. Anticoagulated with Coumadin Findings in CT imaging prompt further questioning. He reports having had a large pulmonary mass that was being followed. Did have a biopsy at some point was noted not to be cancer. He is not sure what it is but apparently has yearly imaging and it is only been getting smaller. Related Data Home Medications ?Medication ?Instructions ?Recorded ?Confirmed torsemide 20 mg tablet 20 mg PO QDAY 09/12/24 09/13/24 Previous Rx's ?Medication ?Instructions ?Recorded metoprolol tartrate 25 mg tablet 25 mg PO QDAY #90 tabs 12/24/23 sertraline 100 mg tablet 100 mg PO QDAY #90 tabs 12/24/23 torsemide 20 mg tablet 40 mg (2 x 20 mg) PO QAM #90 tabs 12/24/23 warfarin 10 mg tablet 5 - 10 mg PO QDAY #90 tabs 08/22/24 Allergies Allergy/AdvReac Type Severity Reaction Status Date / Time No Known Allergies Allergy Verified 09/12/24 12:49 Review of Systems Status of ROS: Reports: 6 or more systems reviewed and unremarkable except as noted in History and below [facility] Medical History Vitamin B12 deficiency (~1988) ?E53.8 - Deficiency of other specified B group vitamins (ICD-10) Acute on chronic diastolic HF (heart failure) ?I50.33 - Acute on chronic diastolic (congestive) heart failure (ICD-10) History of colonic polyps ?Z86.010 - Personal history of colonic polyps (ICD-10) Precancerous skin lesion ?L98.9 - Disorder of the skin and subcutaneous tissue, unspecified (ICD-10) Pneumonia ?J18.9 - Pneumonia, unspecified organism (ICD-10) Incisional hernia without obstruction or gangrene ?K43.2 - Incisional hernia without obstruction or gangrene (ICD-10) Hemoptysis ?R04.2 - Hemoptysis (ICD-10) Atrial fibrillation (2005) ?I48.91 - Unspecified atrial fibrillation (ICD-10) History of endocarditis (2007) ?Z86.79 - Personal history of other diseases of the circulatory system (ICD-10) History of left heart catheterization (2014) ?Z98.890 - Other specified postprocedural states (ICD-10) History of TIA (transient ischemic attack) (2015) ?Z86.73 - Personal history of transient ischemic attack (TIA), and cerebral infarction without residual deficits (ICD-10) Pulmonary nodule ?R91.1 - Solitary pulmonary nodule (ICD-10) Echocardiogram abnormal (2016) ?R93.1 - Abnormal findings on diagnostic imaging of heart and coronary circulation (ICD-10) Health care directive on file ?Z78.9 - Other specified health status (ICD-10) Surgical History History of vasectomy ?Z98.52 - Vasectomy status (ICD-10) History of coronary artery bypass graft ?Z95.1 - Presence of aortocoronary bypass graft (ICD-10) History of inguinal hernia repair (2001) ?Z98.890 - Other specified postprocedural states (ICD-10) ?Z87.19 - Personal history of other diseases of the digestive system (ICD-10) History of permanent cardiac pacemaker placement (2005) ?Z95.0 - Presence of cardiac pacemaker (ICD-10) History of aortic valve replacement with metallic valve (2006) ?Z95.4 - Presence of other heart-valve replacement (ICD-10) History of hemorrhoidectomy (2010) ?Z98.890 - Other specified postprocedural states (ICD-10) History of cholecystectomy (2010) ?Z90.49 - Acquired absence of other specified parts of digestive tract (ICD-10) H/O tricuspid valve repair (2015) ?Z98.890 - Other specified postprocedural states (ICD-10) Hx of colonoscopy (04/12/19) ?Z98.890 - Other specified postprocedural states (ICD-10) Pacemaker (~2005) ?Z95.0 - Presence of cardiac pacemaker (ICD-10) Family History Brother Atrial fibrillation Prostate cancer Sister Breast cancer Social History Narrative: Exercises 3 to 4 times per week- walking 1 h, wood working, remodeling History of cigarette smoking- quit 2003. 40 pack years , retired from [employer], 3 adult kids Social drinker- 9/week What is your current living situation?: I presently have a place to live Problems where you live: declined to answer In the past 12 months, utilities in danger of being shut off: no In past 12 months, lack of transportation kept you from medical appts, meetings, work, or getting things needed for daily living: no In the past 12 mos, have been you worried that your food would run out before you had money to buy more?: never true In the past 12 mos, the food you bought just didn't last and you didn't have money to buy more?: never true Smoking Status: Never smoker Do you use any of these nicotine containing products: None How often do you have a drink containing alcohol: 4 or more times a week How many standard drinks containing alcohol do you have on a typical day: 1 or 2 AUDIT-C Alcohol total score: 4 Non-prescribed substance use: denies use How often does anyone, including family, friends and others, physically hurt you: never How often does anyone, including family, friends and others, insult or talk down to you: never How often does anyone, including family, friends and others, threaten you with harm: never How often does anyone, including family, friends and others, scream or curse at you: never Exam Narrative: Exam Narrative: Very pleasant. NAD. Breathing easily. Lungs generally clear but appear to have some trace basilar crackles. Abdomen with normal bowel sounds is quite tender the left lower abdomen. Guards. I do not appreciate any masses. There is some what looks like points of venous prominence, small in the mid low pelvis which he says is chronic. Systolic crescendo murmur with accented S2. Oozing abrasion at the left elbow. Lower extremities are without edema. Is well-perfused. Const: Vital Signs, click to edit/add: Vital Signs - 24 hr 09/13/24 03:58 09/13/24 04:59 09/13/24 04:59 Temperature 97.6 F Pulse Rate Pulse Rate [Pulse Oximeter] 70 Respiratory Rate 18 16 Blood Pressure Blood Pressure [Ri ght Upper Arm] 124/57 L Pulse Oximetry 91 85 L 93 Oxygen Delivery Me thod Room Air Room Air Nasal Cannula Oxygen Flow Rate 2 09/13/24 05:01 09/13/24 05:04 09/13/24 05:15 Temperature Pulse Rate 70 70 Pulse Rate [Pulse Oximeter] Respiratory Rate Blood Pressure Blood Pressure [Ri ght Upper Arm] Pulse Oximetry 97 96 98 Oxygen Delivery Me thod Nasal Cannula Oxygen Flow Rate 2 09/13/24 05:17 09/13/24 05:17 09/13/24 05:30 Temperature Pulse Rate 71 70 Pulse Rate [Pulse Oximeter] 71 Respiratory Rate 16 Blood Pressure 116/59 L Blood Pressure [Ri ght Upper Arm] 116/59 L Pulse Oximetry 97 97 95 Oxygen Delivery Me thod Nasal Cannula Oxygen Flow Rate 09/13/24 05:36 09/13/24 05:45 09/13/24 05:45 Temperature Pulse Rate 70 Pulse Rate [Pulse Oximeter] 72 Respiratory Rate 18 18 Blood Pressure Blood Pressure [Ri ght Upper Arm] Pulse Oximetry 90 85 L 89 Oxygen Delivery Me thod Room Air Room Air Oxygen Flow Rate 09/13/24 06:00 09/13/24 06:01 09/13/24 06:15 Temperature Pulse Rate 74 70 Pulse Rate [Pulse Oximeter] 70 Respiratory Rate 16 Blood Pressure Blood Pressure [Ri ght Upper Arm] Pulse Oximetry 94 93 94 Oxygen Delivery Me thod Nasal Cannula Oxygen Flow Rate 1 09/13/24 06:30 09/13/24 06:45 09/13/24 07:00 Temperature Pulse Rate 70 71 70 Pulse Rate [Pulse Oximeter] Respiratory Rate Blood Pressure Blood Pressure [Ri ght Upper Arm] Pulse Oximetry 95 94 93 Oxygen Delivery Me thod Oxygen Flow Rate 09/13/24 07:15 09/13/24 07:30 09/13/24 07:48 Temperature Pulse Rate 70 70 70 Pulse Rate [Pulse Oximeter] Respiratory Rate Blood Pressure Blood Pressure [Ri ght Upper Arm] Pulse Oximetry 94 93 90 Oxygen Delivery Me thod Oxygen Flow Rate 09/13/24 08:00 09/13/24 08:08 09/13/24 08:09 Temperature Pulse Rate 70 71 71 Pulse Rate [Pulse Oximeter] Respiratory Rate Blood Pressure 128/57 L Blood Pressure [Ri ght Upper Arm] Pulse Oximetry 93 94 95 Oxygen Delivery Me thod Oxygen Flow Rate 09/13/24 08:15 09/13/24 08:30 09/13/24 08:45 Temperature Pulse Rate 71 70 70 Pulse Rate [Pulse Oximeter] Respiratory Rate Blood Pressure Blood Pressure [Ri ght Upper Arm] Pulse Oximetry 95 93 93 Oxygen Delivery Me thod Oxygen Flow Rate 09/13/24 09:00 09/13/24 09:15 09/13/24 09:26 Temperature Pulse Rate 74 71 70 Pulse Rate [Pulse Oximeter] Respiratory Rate Blood Pressure 119/61 Blood Pressure [Ri ght Upper Arm] Pulse Oximetry 91 91 91 Oxygen Delivery Me thod Oxygen Flow Rate 09/13/24 09:30 09/13/24 09:31 09/13/24 09:45 Temperature Pulse Rate 70 70 71 Pulse Rate [Pulse Oximeter] Respiratory Rate Blood Pressure 117/58 L Blood Pressure [Ri ght Upper Arm] Pulse Oximetry 91 91 91 Oxygen Delivery Me thod Oxygen Flow Rate 09/13/24 10:00 09/13/24 10:02 09/13/24 10:15 Temperature Pulse Rate 70 71 70 Pulse Rate [Pulse Oximeter] Respiratory Rate Blood Pressure 110/52 L Blood Pressure [Ri ght Upper Arm] Pulse Oximetry 90 86 L 91 Oxygen Delivery Me thod Oxygen Flow Rate Documenting provider has reviewed patient's vital signs: yes Course Vital Signs Vital signs: Initial Vital Signs Temperature 97.6 F 09/13/24 03:58 Temperature Source Temporal Artery Scan 09/13/24 03:58 Pulse Rate 70 09/13/24 03:58 Respiratory Rate 18 09/13/24 03:58 Blood Pressure 124/57 L 09/13/24 03:58 Blood Pressure Mean 79 09/13/24 03:58 Blood Pressure Position Supine 09/13/24 03:58 Pulse Oximetry 91 09/13/24 03:58 Oxygen Delivery Method Room Air 09/13/24 03:58 Vital Signs Temperature 97.6 F 09/13/24 03:58 Pulse Rate 70 09/13/24 03:58 Respiratory Rate 18 09/13/24 03:58 Blood Pressure 124/57 L 09/13/24 03:58 Pulse Oximetry 91 09/13/24 03:58 Oxygen Delivery Method Room Air 09/13/24 03:58 Temperature 97.6 F 09/13/24 03:58 Pulse Rate 70 09/13/24 10:15 Respiratory Rate 16 09/13/24 06:01 Blood Pressure 110/52 L 09/13/24 10:02 Pulse Oximetry 91 09/13/24 10:15 Oxygen Delivery Method Nasal Cannula 09/13/24 06:01 Oxygen Flow Rate 1 09/13/24 06:01 Medications Administered Medications: Discontinued Medications Generic Name Dose Route Start Last Admin Trade Name Freq PRN Reason Stop Dose Admin Sodium Chloride 500 mls @ 500 mls/hr 09/13/24 04:45 09/13/24 05:32 0.9 % Sodium Chloride 500 Ml IV 09/13/24 05:44 Infused .Q1H ONE Infusion Phytonadione 5 mg/ Sodium 50.5 mls @ 100 mls/hr 09/13/24 08:54 09/13/24 10:02 Chloride IVPB 09/13/24 09:24 Infused ONCE ONE Infusion Morphine Sulfate 4 mg 09/13/24 04:15 09/13/24 04:44 Morphine 4 Mg/Ml Inj IVP 09/13/24 04:16 4 mg ONCE ONE Administration Morphine Sulfate 2 mg 09/13/24 08:40 09/13/24 08:49 Morphine 2 Mg/Ml Inj IVP 09/13/24 08:41 2 mg ONCE ONE Administration Medical Decision Making MDM Narrative Medical decision making narrative: Placing IV. Will need to be scanning abdomen given findings abdominal exam. I have concerns of diverticulitis or injury related to fall a week ago perhaps. On exam it seems very easy to elicit pain and I think this might be more in the upper aspect of the abdomen. Independently I did review CT imaging. There is a large lesion in the right lower lung. There is also what looks to be hematoma/bleeding in the left lower rectus musculature. I did discuss these findings with Radiology. CT read below. Concern of active bleeding. INDICATION: Left lower abdominal pain TECHNIQUE: CT abdomen and pelvis acquired with 82 cc Omnipaque 350 IV contrast. COMPARISON: CT chest 09/16/2021 FINDINGS: Lower chest: Trace right pleural effusion. Paraseptal emphysema in the lower lobes. Patchy consolidations in the right lower lobe with some areas of architectural distortion, including some retraction of the pleura and bronchiectasis (3/21), for example a spiculated region measures 1.7 x 1.7 centimeters with surrounding nodularity measuring 0.9 centimeters (3/27). There is a 0.3 centimeter nodule in the left lower lobe (3/7). Cardiomegaly with partially visualized intracardiac leads. Liver: Nodular hepatic contour with heterogeneous enhancement is concerning for developing cirrhosis. Calcified granuloma in segment 7. Gallbladder and bile ducts: Cholecystectomy. No biliary ductal dilation. Pancreas: Unremarkable. Spleen: Unremarkable. Adrenal glands: Right adrenal nodule measuring 3 x 1.7 centimeters (2/41), previously 2.7 x 1.6 centimeters. Kidneys: Subcentimeter hypodense lesion in the right kidney, likely cyst. GI tract: No obstruction. Normal appendix. Vasculature: Abdominal aorta is normal in caliber. Moderate aortoiliac atherosclerosis. Mesenteric arteries are patent. Lymph nodes: No lymphadenopathy. Peritoneum/Abdominal Wall: Left lower rectus sheath hematoma measuring 3.6 x 5.1 x 8.1 centimeters (2/98, 5/67), with scattered foci of layering contrast. Pelvis: Mild prostatomegaly. Bones: Moderate degenerative disease of the spine. IMPRESSION: Left lower rectus sheath hematoma with active extravasation of contrast. Patchy right lower lobe consolidations with areas of architectural distortion and surrounding nodularity. This is in the region of the previously noted pleural-based mass and may be related to treatment changes, but malignancy is also in the differential. Consider short interval follow-up in 3 months to evaluate for interval change. Trace right pleural effusion. Similar size of the right adrenal nodule compared to 2021. Nodular hepatic contour is concerning for underlying cirrhosis. Results regarding the rectus sheath hematoma and right lower lobe consolidations were communicated to [facility] by Tulio on 09/13/2024 at 5:40 a.m.. Please note that all CT scans at this facility use dose modulation, iterative reconstruction, and/or weight-based dosing when appropriate to reduce radiation dose to as low as reasonably achievable. Dictated by Vanda Antunez MD @ 09/13/2024 5:40:38 AM Labs return with stable hemoglobin at this point from a week ago. INR is 1.9 Anticipate admission for serial hemoglobins and/or monitoring of persistent bleeding. Did discuss this case with General surgery. Would recommend admission as discussed above but at other facility. Facility where IR embolization might be possible if necessary. INR is relatively low but may need to reverse this as well. Is not in active atrial fibrillation presumed primary need for anticoagulation at this point is aortic valve replacement. I discussed this case with General surgery at [facility]. For requesting more information. Spoke again with radiology; reviewing images. They note that epigastric artery looks to be displaced suggesting potential involvement. Suspect that involved vessel is a small branch of the inferior epigastric artery over a quick venous bleed. Discussed again with [facility] and IR agrees that they would typically be involved which means that this is now medical case not immediately surgery otherwise and do not have any beds and medical. Hemoglobin over 3 hours has dropped 1 g. I have ordered for 5 mg IV vitamin K. considered TXA but holding due to kidney disease. Discussed with [facility] about potential admission. IR will be reviewing images. Placement still pending. Abdominal binder to be placed. Spoke with Interventional Radiology at [facility] who would recommend transfer. Currently anticipating 8 hour wait but anticipate advancing that time frame In the meantime anticipate doing triple phase study the abdomen to clarify arterial versus venous. Ending off a change of shift. Medical Records Medical records reviewed: Yes I reviewed the patient's medical records Lab Data Lab results reviewed: Yes I reviewed the patient's lab results Labs: Lab Results 09/13/24 09/13/24 09/13/24 Range/Units 04:23 04:27 04:45 WBC 6.56 (4.50-11.00) K/uL RBC 3.36 L (4.30-5.90) m/uL Hgb 10.3 L (13.5-17.5) gm/dL Hct 32.8 L (37.0-53.0) % MCV 98 (80-100) fL MCH 31 (26-34) pg MCHC 31 L (32-36) gm/dL RDW Coeff of Vanessa 16.8 H (11.5-15.5) % Plt Count 196 (140-440) K/uL Neut % (Auto) 77.7 H (42.0-72.0) % Lymph % (Auto) 6.4 L (20-44) % [place] % (Auto) 10.7 (0.0-11.0) % Eos % (Auto) 3.2 (0.0-7.0) % Baso % (Auto) 0.3 (0.0-3.0) % Neut # (Auto) 5.10 (1.7-7.0) K/uL Lymph # (Auto) 0.40 L (0.90-2.90) K/uL [place] # (Auto) 0.70 (0.00-0.90) K/UL Eos # (Auto) 0.21 (0.00-0.50) K/uL Baso # (Auto) 0.02 (0.00-0.30) K/uL Abs Immat Gran (auto) 0.11 (0.00-0.30) K/uL Imm/Tot Granulo (auto) 1.7 % INR 1.89 H (0.91-1.10) Sodium 137 (135-149) mmol/L Potassium 4.3 (3.6-5.1) mmol/L Chloride 101 (96-114) mmol/L Carbon Dioxide 28 (20-32) mmol/L Anion Gap 8 (7-15) mEq/L BUN 30 (7-30) mg/dL Creatinine 1.9 H (0.5-1.5) mg/dL Estimated Creat Clear 29.88 Estimated GFR 34 ml/min Glucose 119 H (60-115) mg/dL Calcium 9.0 (8.4-10.6) mg/dL C-Reactive Protein 4.0 H (0.5-1.0) mg/dL Urine Color Yellow (Yellow) Urine Appearance Clear (Clear) Urine pH 7.0 (5.0-8.5) Ur Specific [place] 1.010 (1.000-1.030) Urine Protein Negative (Negative) Urine Glucose (UA) Negative (Negative) Urine Ketones Negative (Negative) Urine Blood Trace-intact A (Negative) Urine Nitrite Negative (Negative) Urine Bilirubin Negative (Negative) Urine Urobilinogen 1.0 (0.2-1.0) Ur Leukocyte Esterase Negative (Negative) Urine RBC 0-2 (0-2) Urine WBC 0-2 (0-5) Urine WBC Clumps Ur Squamous Epith Cells Few (None-Few) Andre Biurate Crystals Calcium Carbonate Cryst Calcium Phosphate Cryst Calcium Oxalate Crystal Cystine Crystals Uric Acid Crystals Triple Phos Crystals Sulfur Crystals Cholesterol Crystals Tyrosine Crystals Hippuric Acid Crystals Amorphous Sediment Other Sediment Urine Bacteria None (None) Fatty Casts Hyaline Casts Fine Granular Casts Coarse Granular Casts Waxy Casts RBC Casts WBC Casts Other Casts Urine Starch Urine Mucus Urine Trichomonas Urine Yeast Lab Acknowledgement Test Added 09/13/24 09/13/24 Range/Units 05:00 07:36 WBC (4.50-11.00) K/uL RBC (4.30-5.90) m/uL Hgb 9.2 L (13.5-17.5) gm/dL Hct (37.0-53.0) % MCV (80-100) fL MCH (26-34) pg MCHC (32-36) gm/dL RDW Coeff of Vanessa (11.5-15.5) % Plt Count (140-440) K/uL Neut % (Auto) (42.0-72.0) % Lymph % (Auto) (20-44) % [place] % (Auto) (0.0-11.0) % Eos % (Auto) (0.0-7.0) % Baso % (Auto) (0.0-3.0) % Neut # (Auto) (1.7-7.0) K/uL Lymph # (Auto) (0.90-2.90) K/uL [place] # (Auto) (0.00-0.90) K/UL Eos # (Auto) (0.00-0.50) K/uL Baso # (Auto) (0.00-0.30) K/uL Abs Immat Gran (auto) (0.00-0.30) K/uL Imm/Tot Granulo (auto) % INR (0.91-1.10) Sodium (135-149) mmol/L Potassium (3.6-5.1) mmol/L Chloride (96-114) mmol/L Carbon Dioxide (20-32) mmol/L Anion Gap (7-15) mEq/L BUN (7-30) mg/dL Creatinine (0.5-1.5) mg/dL Estimated Creat Clear Estimated GFR ml/min Glucose (60-115) mg/dL Calcium (8.4-10.6) mg/dL C-Reactive Protein (0.5-1.0) mg/dL Urine Color Cancelled (Yellow) Urine Appearance Cancelled (Clear) Urine pH Cancelled (5.0-8.5) Ur Specific [place] Cancelled (1.000-1.030) Urine Protein Cancelled (Negative) Urine Glucose (UA) Cancelled (Negative) Urine Ketones Cancelled (Negative) Urine Blood Cancelled (Negative) Urine Nitrite Cancelled (Negative) Urine Bilirubin Cancelled (Negative) Urine Urobilinogen Cancelled (0.2-1.0) Ur Leukocyte Esterase Cancelled (Negative) Urine RBC Cancelled (0-2) Urine WBC Cancelled (0-5) Urine WBC Clumps Cancelled Ur Squamous Epith Cells Cancelled (None-Few) Andre Biurate Crystals Cancelled Calcium Carbonate Cryst Cancelled Calcium Phosphate Cryst Cancelled Calcium Oxalate Crystal Cancelled Cystine Crystals Cancelled Uric Acid Crystals Cancelled Triple Phos Crystals Cancelled Sulfur Crystals Cancelled Cholesterol Crystals Cancelled Tyrosine Crystals Cancelled Hippuric Acid Crystals Cancelled Amorphous Sediment Cancelled Other Sediment Cancelled Urine Bacteria Cancelled (None) Fatty Casts Cancelled Hyaline Casts Cancelled Fine Granular Casts Cancelled Coarse Granular Casts Cancelled Waxy Casts Cancelled RBC Casts Cancelled WBC Casts Cancelled Other Casts Cancelled Urine Starch Cancelled Urine Mucus Cancelled Urine Trichomonas Cancelled Urine Yeast Cancelled Lab Acknowledgement ECG Data Attestation: I personally reviewed and interpreted this ECG as follows: (EKG shows a wide QRS complex. PVC. Rate of 73. This looks similar to prior. ) Discharge Plan Discharge Clinical Impression: Hematoma of rectus sheath Patient Disposition: [facility] Condition: Stable Prescriptions: No Action sertraline 100 mg tablet 100 mg PO QDAY Qty: 90 3RF metoprolol tartrate 25 mg tablet 25 mg PO QDAY Qty: 90 3RF torsemide 20 mg tablet 40 mg PO QAM Qty: 90 3RF torsemide 20 mg tablet 20 mg PO QDAY warfarin 10 mg tablet 5 - 10 mg PO QDAY Qty: 90 0RF Protocol: Dose Management Condition: Thursday Dose/Route: 5 mg Instruction: 0.5 x 10 mg tablets Condition: Thursday Dose/Route: 10 mg Instruction: 1 x 10 mg tablet Condition: Thursday Dose/Route: 5 mg Instruction: 0.5 x 10 mg tablets Condition: Thursday Dose/Route: 10 mg Instruction: 1 x 10 mg tablet Condition: Dose/Route: 5 mg Instruction: 0.5 x 10 mg tablets Condition: Thursday Dose/Route: 10 mg Instruction: 1 x 10 mg tablet Condition: Thursday Dose/Route: 5 mg Instruction: 0.5 x 10 mg tablets Protocol Text: Adjustment Start Date: Thursday08/12/24 INR Value: 2.7 INR Date: 08/12/24 Recheck Date: 09/11/24 Rx Instructions: Take 10mg Thursday/Thursday/Thursday and 5mg all other days Follow Up/Referrals: Myrna Sol MD [Primary Care Provider] - Stand Alone Forms: MyHealth Info Instructions
--- NOTE | 2024-09-13 04:15 | CRLHL7_ITS ---
For Patients: As a result of the Century Cures Act, medical imaging exams and procedure reports are released immediately into your electronic medical record. You may view this report before your referring provider. If you have questions, please contact your health care provider. INDICATION: Left lower abdominal pain TECHNIQUE: CT abdomen and pelvis acquired with 82 cc Omnipaque 350 IV contrast. COMPARISON: CT chest 09/16/2021 FINDINGS: Lower chest: Trace right pleural effusion. Paraseptal emphysema in the lower lobes. Patchy consolidations in the right lower lobe with some areas of architectural distortion, including some retraction of the pleura and bronchiectasis (3/), for example a spiculated region measures 1.7 x 1.7 centimeters with surrounding nodularity measuring 0.9 centimeters (3/27). There is a 0.3 centimeter nodule in the left lower lobe (3/7). Cardiomegaly with partially visualized intracardiac leads. Liver: Nodular hepatic contour with heterogeneous enhancement is concerning for developing cirrhosis. Calcified granuloma in segment 7. Gallbladder and bile ducts: Cholecystectomy. No biliary ductal dilation. Pancreas: Unremarkable. Spleen: Unremarkable. Adrenal glands: Right adrenal nodule measuring 3 x 1.7 centimeters (2/41), previously 2.7 x 1.6 centimeters. Kidneys: Subcentimeter hypodense lesion in the right kidney, likely cyst. GI tract: No obstruction. Normal appendix. Vasculature: Abdominal aorta is normal in caliber. Moderate aortoiliac atherosclerosis. Mesenteric arteries are patent. Lymph nodes: No lymphadenopathy. Peritoneum/Abdominal Wall: Left lower rectus sheath hematoma measuring 3.6 x 5.1 x 8.1 centimeters (298, /), with scattered foci of layering contrast. Pelvis: Mild prostatomegaly. Bones: Moderate degenerative disease of the spine. IMPRESSION: Left lower rectus sheath hematoma with active extravasation of contrast. Patchy right lower lobe consolidations with areas of architectural distortion and surrounding nodularity. This is in the region of the previously noted pleural-based mass and may be related to treatment changes, but malignancy is also in the differential. Consider short interval follow-up in 3 months to evaluate for interval change. Trace right pleural effusion. Similar size of the right adrenal nodule compared to 2021. Nodular hepatic contour is concerning for underlying cirrhosis. Results regarding the rectus sheath hematoma and right lower lobe consolidations were communicated to Óscar by Tulio on 09/13/2024 at 5:40 a.m.. Please note that all CT scans at this facility use dose modulation, iterative reconstruction, and/or weight-based dosing when appropriate to reduce radiation dose to as low as reasonably achievable. Dictated by Vanda Antunez MD @ 09/13/2024 5:40:38 AM (Electronically Signed)
[2024-09-13 04:35] LABS: Appearance Urine Clear (Clear); Bilirubin Urine Negative (Negative); Blood Urine Trace-intact (Negative); Color Urine Yellow (Yellow); Glucose Urine Negative (Negative); Ketones Urine Negative (Negative); Leukocyte Esterase Urine Negative (Negative); Nitrite Urine Negative (Negative); Protein Urine Negative (Negative)
[2024-09-13 04:42] LABS: RBC Urine 0-2 (0-2); Squamous Epithelial Cell Urine Few (None-Few); WBC Urine 0-2 (0-5)
[2024-09-13 04:44] LABS: Basophils Absolute Auto 0.02 K/uL (0.00-0.30); Basophils Percent Auto 0.3 % (0.0-3.0); Eosinophils Absolute Auto 0.21 K/uL (0.00-0.50); Eosinophils Percent Auto 3.2 % (0.0-7.0); Hematocrit 32.8 % (37.0-53.0); Hemoglobin* 10.3 gm/dL (13.5-17.5); Immature Granulocytes Abs Auto 0.11 K/uL (0.00-0.30); Immature Granulocytes Pct Auto 1.7 %; Lymphocytes Percent Auto 6.4 % (20-44); Mean Corpuscular HGB Conc 31 gm/dL (32-36); Mean Corpuscular Hemoglobin 31 pg (26-34); Mean Corpuscular Volume 98 fL (80-100); Monocytes Percent Auto 10.7 % (0.0-11.0); Neutrophils Percent Auto 77.7 % (42.0-72.0); Platelet Count* 196 K/uL (140-440); RDW Coefficient of Variation % 16.8 % (11.5-15.5); Red Blood Count 3.36 m/uL (4.30-5.90); White Blood Count* 6.56 K/uL (4.50-11.00)
[2024-09-13] MEDS: MORPHINE 4 MG/ML INJ IVP (04:44)
[2024-09-13 04:45] LABS: Slide Review Reflex No
[2024-09-13] MEDS: 0.9 % SODIUM CHLORIDE 500 ML 500 ML IV (04:55)
[2024-09-13 04:58] LABS: Chloride* 101 mmol/L (96-114); Potassium* 4.3 mmol/L (3.6-5.1); Sodium* 137 mmol/L (135-149)
[2024-09-13 05:01] LABS: INR 1.89 (0.91-1.10); Prothrombin Time 22.8 Seconds
[2024-09-13 05:02] LABS: Anion Gap 8 mEq/L (7-15); Blood Urea Nitrogen* 30 mg/dL (7-30); Carbon Dioxide* 28 mmol/L (20-32); Creatinine* 1.9 mg/dL (0.5-1.5); Est. Creatinine Clearance* 29.88; Estimated Glomerular Filt Rate 34 ml/min; Glucose* 119 mg/dL (60-115)
--- OUTSIDE RECORDS SUMMARY | 2024-09-13 05:32 | XMS_ITS | Encounter Summary ---
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 [address] [place] [phone] Phone: tel: fax: [facility] Referral ID Status Reason Start Date Expiration Date V isits Requested Visits Authorized [id number] Authorized 09/08/2024 03/10/2026 1 1 Encounter Details Date Type Department Care Team (Late st Contact Info) Description 09/08/2024 Clinical Communication [facility] [address] [place] [phone] Deanne Kilpatrick M.D., M.S. [address] [place] [phone] Social History Tobacco Use Types Packs/Day Years Used Date Smoking Tobacco: Former Cigarettes 1 50 0 05/04/1954 - 05/04/2004 Smokeless Tobacco: Never Alcohol Use Standard Drinks/Week Comments Yes 5 (1 standard drink = 0.6 oz pur e alcohol) [facility] Utilities Answer Date Recorded In the past 12 months has [facility] [employer], gas, oil, or water [employer] threatened to shut off services in your [...] How often do you attend chur or congregation services? More than 4 times per year 05/08/2022 Do you belong to any clubs o r organizations such as yazdanism groups, unions, fraternal or athletic groups, or [...] care, and heating? Not very hard 05/08/2022 [facility] - Occupational Stress Questionnaire [...] your living situation today? I have a [facility] place to live 09/06/2024 Education Answer Date Recorded What is the highest level of school you have completed or the highest degree you have received? 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 200 [place] [address] 09/14/2024 9:10 AM CDT Appointment Department of Laboratory Medicine and Pathology, [facility] in [place], [place] [address] [place] [phone] Marquita Lo M.D. [address] [place] [address] 09/14/2024 9:30 AM CDT Appointment Department of Cardiac Rehabilitation in [place], [place] [address] [place] [address] Marquita Lo M.D. [address] [place] [address] 09/14/2024 2:00 PM CDT Comprehensive Visit Department of Cardiovascular Medicine in [place], [place] [address] [place] [address] Tom Plascencia M.D. [address] [place] [address] Scheduled Orders Name Type Priority Associated Diagnoses [...] Breath documented in this encounter Care Teams 1 Year Olds Preschool Teacher Relationship Specialty Start Date End Date Elsewhere, Pcp PCP - General Family Medicine 11/27/20 Mary Ann Sol [address] [place] [address] Deputy Commonwealth'S Attorney Physician 01/17/19 documented as of this encounter
--- OUTSIDE RECORDS SUMMARY | 2024-09-13 05:32 | XMS_ITS | Encounter Summary ---
Author Organization [facility] Address [address] [place] [address] Care Team Providers Care Wet Char Conveyor Tender Name Role Phone Elsewhere, Pcp Primary Care [...] drink = 0.6 oz pur e alcohol) [facility] Utilities Answer Date Recorded In the past 12 months has e electric, gas, oil, or water [employer] threatened to shut off services in your [...] often do you attend chur ch or religion services? More than 4 times per year 05/08/2022 Do you belong to any clubs o r organizations such as mandaen groups, unions, fraternal or athletic groups, or [...] care, and heating? Not very hard 05/08/2022 [facility] Occupat ional Health - [...] your living situation today? I have a [facility] place to live 09/06/2024 Education Answer Date Recorded What is the highest level of school you have completed or the highest degree you have received? 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 200 [place] [address] 09/14/2024 9:10 AM CDT Appointment Department of Laboratory Medicine and Pathology, [facility] in [place], [place] [address] [place] [address] Marquita Lo M.D. [address] [place] [phone] 09/14/2024 9:30 AM CDT Appointment Department of Cardiac Rehabilitation in [place], [place] [address] [place] [address] Marquita Lo M.D. [address] [place] [phone] 09/14/2024 2:00 PM CDT Comprehensive Visit Department of Cardiovascular Medicine in [place], [place] [address] [place] [address] Tom Plascencia M.D. [address] [place] [address] documented as of this encounter Procedures Procedure [...] on filedocumented in this encounter Care Teams Wet Char Conveyor Tender Relationship Specialty Start Date End Date Elsewhere, Pcp PCP - General Family Medicine 11/27/20 Mary Ann Sol [address] [place] [address] Respiratory Manager Physician 01/17/19 documented as of this encounter
--- OUTSIDE RECORDS SUMMARY | 2024-09-13 05:32 | XMS_ITS | Encounter Summary ---
Author Organization [facility] Address [address] [place] [address] Care Team Providers Care Needle Grader Name Role Phone Elsewhere, Pcp Primary Care [...] drink = 0.6 oz pur e alcohol) [facility] Utilities Answer Date Recorded In the past 12 months has e electric, gas, oil, or water [employer] threatened to shut off services in your [...] often do you attend chur ch or jewish services? More than 4 times per year 05/08/2022 Do you belong to any clubs o r organizations such as baptist groups, unions, fraternal or athletic groups, or [...] and heating? Not very hard 05/08/2022 [facility] of Occupat ional Health [...] your living situation today? I have a [facility] place to live 09/06/2024 Education Answer Date Recorded What is the highest level of school you have completed or the highest degree you have received? 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 200 [place] [address] 09/14/2024 9:10 AM CDT Appointment Department of Laboratory Medicine and Pathology, [facility] in [place], [place] [address] [place] [address] Marquita Lo M.D. [address] [place] [phone] 09/14/2024 9:30 AM CDT Appointment Department of Cardiac Rehabilitation in [place], [place] [address] [place] [address] Marquita Lo M.D. [address] [place] [phone] 09/14/2024 2:00 PM CDT Comprehensive Visit Department of Cardiovascular Medicine in [place], [place] [address] [place] [address] Tom Plascencia M.D. [address] [place] [address] documented as of this encounter Procedures Procedure [...] on filedocumented in this encounter Care Teams Needle Grader Relationship Specialty Start Date End Date Elsewhere, Pcp PCP - General Family Medicine 11/27/20 Mary Ann Sol [address] [place] [address] Refinery Operator Helper Crude Unit Physician 01/17/19 documented as of this encounter
--- OUTSIDE RECORDS SUMMARY | 2024-09-13 05:32 | XMS_ITS | Encounter Summary ---
Author Organization [facility] Address [address] [place] [address] Care Team Providers Care Service Station Manager Name Role Phone Elsewhere, Pcp Primary [...] = 0.6 oz pur e alcohol) [facility] Utilities Answer Date Recorded In the [...] How often do you attend chur or gnosticist services? More than 4 times per year 05/08/2022 Do you belong to any clubs o r organizations such as roman catholic groups, unions, fraternal or athletic groups, [...] care, and heating? 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 [address] [place] [phone] 09/14/2024 9:10 AM CDT Appointment Department of Laboratory Medicine and Pathology, [facility], in [place], [place] [address] [place] [address] Marquita Lo M.D. [address] [place] [phone] 09/14/2024 9:30 AM CDT Appointment Department of Cardiac Rehabilitation in [place], [place] [address] [place] [phone] Marquita Lo M.D. [address] [place] [address] 09/14/2024 2:00 PM CDT Comprehensive Visit Department of Cardiovascular Medicine in [place], [place] [address] [place] [address] Tom Plascencia M.D. [address] [place] [address] documented as of this encounter Visit Diagnoses Not on filedocumented in this encounter Care Teams Service Station Manager Relationship Specialty Start Date End Date Elsewhere, Pcp PCP - General Family Medicine 11/27/20 Mary Ann Sol [address] [place] [address] Platen Press Feeder Physician 01/17/19 documented as of this encounter
--- OUTSIDE RECORDS SUMMARY | 2024-09-13 05:32 | XMS_ITS | Encounter Summary ---
Author Organization [facility] Address [address] [place] [address] Care Team Providers Care Field Laborer Name Role Phone Elsewhere, Pcp Primary Care [...] drink = 0.6 oz pur e alcohol) [facility] Utilities Answer Date Recorded In the past 12 months has e electric, gas, oil, or water [employer] threatened to shut off services in your [...] often do you attend chur ch or hinduism services? More than 4 times per year 05/08/2022 Do you belong to any clubs o r organizations such as pentecostal groups, unions, fraternal or athletic groups, or [...] care, and heating? Not very hard 05/08/2022 [facility] of Occupat ional Health - [...] living situation today? I have a [facility] place to live 09/06/2024 Education Answer Date Recorded What is the highest level of school you have completed or the highest degree you have received? 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 200 [place] [address] 09/14/2024 9:10 AM CDT Appointment Department of Laboratory Medicine and Pathology, [facility] in [place], [place] [address] [place] [address] Marquita Lo M.D. [address] [place] [phone] 09/14/2024 9:30 AM CDT Appointment Department of Cardiac Rehabilitation in [place], [place] [address] [place] [address] Marquita Lo M.D. [address] [place] [phone] 09/14/2024 2:00 PM CDT Comprehensive Visit Department of Cardiovascular Medicine in [place], [place] [address] [place] [address] Tom Plascencia M.D. [address] [place] [address] documented as of this encounter Procedures Procedure [...] on filedocumented in this encounter Care Teams Field Laborer Relationship Specialty Start Date End Date Elsewhere, Pcp PCP - General Family Medicine 11/27/20 Mary Ann Sol [address] [place] [address] Assayer Helper Physician 01/17/19 documented as of this encounter
--- OUTSIDE RECORDS SUMMARY | 2024-09-13 05:32 | XMS_ITS | Encounter Summary ---
Author Organization [facility] Address [address] [place] [address] Care Team Providers Care Four H Club Agent Name Role Phone Elsewhere, Pcp Primary Care Provider Unavailabl e Encounter Details Date Type Department Care Team (Late st Contact Info) Description 09/05/2024 12:45 AM CDT - 09/06/2024 1:04 AM CDT Emergency [facility] Emergency Department [address] [place] [phone] Discharge Disposition: ED Dismiss - Never Arrived Social History Tobacco Use Types Packs/Day Years Used Date Smoking Tobacco: Former Cigarettes 1 50 0 [birth year]/04/1954 - 05/04/2004 Smokeless Tobacco: Never Alcohol Use Standard Drinks/Week Comments Yes 5 (1 standard drink = 0.6 oz pur e alcohol) [facility] Utilities Answer Date Recorded In the past 12 months has [facility] [employer], gas, oil, or water [employer] threatened to shut off services in your [...] often do you attend chur ch or gnosticism services? More than 4 times per year 05/08/2022 Do you belong to any clubs o r organizations such as yarsani groups, unions, fraternal or athletic groups, or [...] care, and heating? Not very hard 05/08/2022 [facility] - Occupational Stress Questionnaire Answer Date [...] your living situation today? I have a [facility] place to live 09/06/2024 Education Answer Date Recorded What is the highest level of school you have completed or the highest degree you have received? 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 [address] [place] [phone] 09/14/2024 9:10 AM CDT Appointment Department of Laboratory Medicine and Pathology, [facility] in [place], [place] [address] [place] [address] Marquita Lo M.D. [address] [place] [phone] 09/14/2024 9:30 AM CDT Appointment Department of Cardiac Rehabilitation in [place], [place] [address] [place] [address] Marquita Lo M.D. [address] [place] [phone] 09/14/2024 2:00 PM CDT Comprehensive Visit Department of Cardiovascular Medicine in [place], [place] [address] [place] [address] Tom Plascencia M.D. [address] [place] [address] documented as of this encounter Visit Diagnoses Not on filedocumented in this encounter Care Teams Four H Club Agent Relationship Specialty Start Date End Date Elsewhere, Pcp PCP - General Family Medicine 11/27/20 Mary Ann Sol [address] [place] [address] Process Consultant Physician 01/17/19 documented as of this encounter
--- OUTSIDE RECORDS SUMMARY | 2024-09-13 05:32 | XMS_ITS | Encounter Summary ---
Author Organization [facility] Address [address] [place] [address] Care Team Providers Care Fuel Verification Technician Name Role Phone Elsewhere, Pcp Primary Care Provider Unavailabl e Reason for Visit * Reason Comments Syncope Palpitations Encounter Details Date Type Department Care Team (Latest Contact Info) Description 09/07/2024 4:40 PM CDT - 09/07/2024 5:55 PM CDT Surgery Division of Cardiovascular Diseases in [place], [place] [address] [place] [address] Mynor Perez M.D. [address] [place] [address] HEART CATHETERIZATION - RIGHT Social History Tobacco Use Types Packs/Day Years Used Date Smoking Tobacco: Former Cigarettes 1 50 0 05/04/1954 - 05/04/2004 Smokeless Tobacco: Never Alcohol Use Standard Drinks/Week Comments Yes 5 (1 standard drink = 0.6 oz pur e alcohol) [facility] Utilities Answer Date Recorded In the past 12 months has [facility] [place], gas, oil, or water 2sms threatened to shut off services in your [...] often do you attend chur ch or bahai services? More than 4 times per year 05/08/2022 Do you belong to any clubs o r organizations such as zoroastrianism groups, unions, fraternal or athletic groups, or [...] heating? Not very hard 05/08/2022 [facility] - Occupational [...] your living situation today? [facility] a [facility] place to live 09/06/2024 Education Answer Date Recorded What is the highest level of school you have completed or the highest degree you have received? 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 * Enoxaparin (By injection) (Hungarian) documented in this encounter Medications at Time [...] t his location. Tiny posterior pericardial effusion. [facility] 09/08/2024 Right heart catheterization: RA 18 with [...] tissue disease. 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 Group [...] home. Plan discussed with RST CARD 1 Bookie, Dr. Lo, who was present during diaz portions of the evaluation today. Please page the S[employer]i BrandsT CARD 1 service pager at [phone] with any questions. Deanne Kilpatrick MD (Yui) PGY-1, Preliminary Internal Medicine [facility] Pager [phone] * David Avina Pharm.D., R.Ph., [facility] - 09/09/2024 8:46 AM CDT Pharmacist Progress [...] Target INR: 2 - 3 DOAC Assessment: [facility] AVR Warfarin Administrations (last 168 hours) Date/Time [...] home. Plan discussed with RST CARD 1 Bookie, Dr. Lo, who was present during diaz portions of the evaluation today. Please page the RST CARD 1 service pager at [phone] with any questions. Deanne Kilpatrick MD (Yui) PGY-1, Preliminary Internal Medicine [facility] Pager [phone] * Domingo Ramsay M.B.B.S. - 09/08/2024 11:11 [...] capillary. 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 Group [...] PM CDT * David Avina, DArmando, R.Ph., [facility] - 09/08/2024 10:28 AM CDT Pharmacist Progress [...] Target INR: 2 - 3 DOAC Assessment: [facility] AVR Warfarin Administrations (last 168 hours) Date/Time [...] Target INR: 2 - 3 DOAC Assessment: [facility] AVR Warfarin Administrations (last 168 hours) Date/Time [...] [place] [phone] with any questions. Staffed with Dr. Thronton. Anju Chen MD General deck engine operator * Deanne Kilpatrick M.D., M.S. - 09/07/2024 [...] home. Plan discussed with RST CARD 1 Bookie, Dr. Lo, who was present during diaz portions of the evaluation today. Please page the RST CARD 1 service pager at [phone] with any questions. Deanne Kilpatrick MD (Yui) PGY-1, Preliminary Internal Medicine [facility] Pager [phone] * Tara Garcia ROrlando, C.W.O.C.N. - 09/06/2024 2:55 PM CDT [facility] Wound RN consulted to assess Sam Gross skin alterations. Wound assessment, pain, and Jaspreet score noted in the flowsheet. The patient verbally consented to photography of the affected area for clinical trending purposes. Images were taken and are available in [place]. History: Per chart review, Sam Gross is [...] Odor None *Exudate Amount None Lakia-wound Assessment Dry;Fragile;Flakes;[place] Corridor Treatments Cleansed Periwound Treatment Cleansed (Comment) Wound Cleansed with Wound cleanser *Primary Dressing Other (Comment) (Plain Petrolatum) *Primary Dressing Frequency of Change Daily & PRN Primary Dressing Changed New Primary Dressing Status Intact;Clean *Secondary Dressing Open to air Changed by Wound physical instructor Ongoing management Nursing;Patient/caregiver Wound 09/06/24 Skin Tear [...] Secondary Dressing Status Clean;Dry;Intact Changed by Wound physical instructor Ongoing management Nursing Wound 09/06/24 Skin Tear [...] Secondary Dressing Status Clean;Dry;Intact Changed by Wound physical instructor Ongoing management Nursing Wound 09/06/24 Skin Tear [...] Secondary Dressing Status Clean;Dry;Intact Changed by Wound physical instructor Ongoing management Nursing Wound 09/06/24 Abrasion Hand [...] Dressing Open to air Changed by Wound physical instructor Ongoing management Nursing Wound 09/06/24 Hematoma Head [...] for any new concerns. Electronically signed by: Taar Garcia R.N., C.W.O.C.N. 09/06/24 2:58 PM CDT [...] answered. Morena Agudelo CT CT Job ID: [id number] * Miguelangel Thornton M.B.B.S. - 09/06/2024 11:31 [...] answered. Radha Agudelo. CT CT Job ID: [id number] * David Avina, Pharm.DArmando, R.Ph., [facility] - 09/06/2024 7:59 AM CDT Pharmacist Progress [...] Target INR: 2 - 3 DOAC Assessment: [facility] AVR Warfarin Administrations (last 168 hours) None [...] Last interrogation: remote 08.04.2024 Presenting rhythm: AF. RESIDENTIAL MORTGAGE MANAGER Underlying rhythm: RESIDENTIAL MORTGAGE MANAGER at 30 bpm Pacing mode: VVIR [...] No prodromal episodes. He was taken to [place] [facility] where he had some NSVT at [...] saw and evaluated the patient with the [facility] 1 resident, participating in the diaz portions [...] with a tricuspid valve repair in 2014 Esrq-as-qxymngje mitral valve regurgitation Mulz-db-cgvnvjxw tricuspid valve regurgitation Briefly, he had just [...] normal size, not diseased. Presented to the [place] ED. pacemaker interrogation revealed a 12nd run [...] PGY 3 Department of Internal Medicine Pager #[phone] [facility], [place], [place] * Magdalena Sandoval M.B., B.Chir. - 09/06/2024 [...] was brought in by the ambulance to [facility]. There, he underwent CT head and CT [...] Last interrogation: remote 08.04.2024 Presenting rhythm: AF. RESIDENTIAL MORTGAGE MANAGER Underlying rhythm: RESIDENTIAL MORTGAGE MANAGER at 30 bpm Pacing mode: VVIR [...] No evidence of disorganized thinking. 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 ASSESSMENT / PLAN Mr. Gross is hospitalized [...] of nonsustained V-tach Consider HRS consult Continue WEBLOGIC DEVELOPER metoprolol 25 mg daily (per patient) Continue [...] the RST CARD 1 [place] [phone] with any questions. Erica John, PawelChir. documented [...] 83 y.o. male who was admitted to [facility] in [place] on 09/06/2024 for Syncope [R55]. Precautions Other [...] walker, Single point cane Adaptive Equipment Owned: Biological Lab Technician Other DME Owned: Regular flat bed Prior [...] valvuloplasty Notes: [employer] Annuloflex ring 28mm, Serial #[id number], [id number] VASECTOMY * Kristy Ott, O.TArmando, [facility] - 09/09/2024 9:35 AM CDT Occupational Therapy Acute Hospital Inpatient Evaluation/Treatment SUBJECTIVE Patient's Name: Sam Gross Referring/Attending Provider: Zhou Meredith M.D. Reason for Referral: Occupational Therapy Evaluation and Treatment Onset Date: 09/06/2024 PERTINENT MEDICAL / SURGICAL HISTORY: Medical History[1] Surgical History[2] History of Present Illness: Sam Gross is a 83 y.o. male who was admitted to [facility] in [place] on 09/06/2024 for Syncope [R55]. 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: Biological Lab Technician Other DME Owned: Regular flat bed Prior [...] Time (min): 20 min Kristy Ott O.T., [facility] [1] Past Medical History: Diagnosis Date Atrial [...] Drug Study; Surgeon: Mynor Perez M.D.; Location: [facility] CATH ANGIOGRAM N/A 09/07/2024 Procedure: HEART CATHETERIZATION - RIGHT; Surgeon: Mynor Perez M.D.; Location: [facility] GALLBLADDER SURGERY HERNIA REPAIR TONSILLECTOMY TRICUSPID VALVE, VALVULOPLASTY N/A 11/01/2014 Tricuspid valve, valvuloplasty Notes: [facility] Annuloflex ring 28mm, Serial #[id number], [id number] VASECTOMY * Dalila Grigsby CEP - 09/08/2024 10:55 AM CDTAssociated Order(s): IP CONSULT TO CARDIAC REHABILITATION Thank you for the cardiac rehabilitation consult, however this patient does not currently have a qualifying diagnosis. If that changes or you have any questions we can be reached Thursday - Thursday, 7:30 to 4:00pm at [phone]. To qualify for participation in a Cardiac [...] size with severelyreduced systolic function, RVSP 72, ubuo-en-cuibdyqi mitral regurgitation, severe tricuspid regurgitation, and mildly [...] page the HRS Consult Service pager at [phone] with any questions. Staffed with Dr. Thornton. Anju Chen MD General Health It Specialist * Marquita Lo M.D. - 09/06/2024 11:38 [...] Nursing Notes * Clifton Lopes M.S., R.N., [facility] - 09/10/2024 2:13 PM CDT Problem: KNOWLEDGE [...] encounter ED Notes * Khoi Zacarias APRN, CArmandoNArmandoP. - 09/06/2024 3:14 AM [...] of a syncopal episode. He was evaluated [facility] after he had a no prodromal syncopal episode while carrying some boxes. He did hit his head and had undergone CT imaging at the outside facility which was negative. They were concerned as they felt that they saw a run of V-tach while he was present in [place]. The patient has remained asymptomatic since his [...] did show V-tach while he was in [facility] but did not show any obvious signs of arrhythmia with his syncopal episode earlier. Overall after speaking with the provider who performed pacemaker interrogation he did recommend admission for further workup for this syncopal episode. Final Diagnoses: as of 09/06/24434 Syncope Khoi Zacarias APRN, C.N.P. 09/06/24434 * Sumit Hutson, R.N. - 09/06/2024 2:26 AM CDT Pt presents from [facility] after suffering syncopal fall, trauma scans unremarkable. [...] was slightly elevated, but has CKD Per [facility] hx: Dr. Dickey (PN 11/27/20)- CKD [...] Department of Radiology, [facility] in [place], [place] [address] [place] [phone] Marquita Lo M.D. [address] [place] [phone] 09/14/2024 9:10 AM CDT Appointment Department of Laboratory Medicine and Pathology, [facility] in [place], [place] [address] [place] [phone] Marquita Lo M.D. [address] [place] [phone] 09/14/2024 9:30 AM CDT Appointment Department of Cardiac Rehabilitation in [place], [place] [address] [place] [phone] Marquita Lo M.D. [address] [place] [phone] 09/14/2024 2:00 PM CDT Comprehensive Visit Department of Cardiovascular Medicine in [place], [place] [address] [place] [phone] Tom Plascencia M.D. [address] [place] [phone] documented as of this encounter Procedures Procedure [...] López M.D. LAB BLOOD ADD-ON Final Result [facility] [address] [place] [address], [facility] [address] [place] [address] * (ABNORMAL) Basic Metabolic Panel (09/10/2024 5:00 [...] BLOOD ADD-ON Final Result Performing Organization Address City/[facility]/ZIP Co de Phone Number [facility] [address] DTL [facility] 200 [place] [address] * (ABNORMAL) CBC without Differential (09/10/2024 5:00 AM CDT) Pathologist [facility] Hemoglobin 9.8(L) 13.2 - 16.6 g/dL 09/10/2024 [...] López M.D. LAB BLOOD ADD-ON Final Result [facility] [address] [place] [address], [facility] DTL [facility] [address] [place] [address] * (ABNORMAL) Prothrombin Time (PT) (09/10/2024 5:00 [...] Lo M.D. LAB BLOOD ADD-ON Final Result [facility] [address] [place] [address], [facility] [address] [place] [address] * CT Cardiac Angiogram with Coronary Arteries [...] 5: 100%, Occluded N: Non-diagnostic study Plaque Cardwell: P1: Mild (CACS1-100/SIS1-2/1-2 vessels mild plaque) P2: Moderate ([id number]/SIS3-4/1-2 vessels moderate; 3 vessels mild plaque) P3: Severe ([id number]/SIS5-7/3 vessels moderate; 1 vessel severe plaque) P4: [...] Similar bilateral noncalcified solid pulmonary nodules, including qtqscuwb35 mm greatest dimension nodule in the peripheral [...] 5: 100%, Occluded N: Non-diagnostic study Plaque Cardwell: P1: Mild (CACS1-100/SIS1-2/1-2 vessels mild plaque) P2: Moderate ([id number]/SIS3-4/1-2 vessels moderate; 3 vessels mildplaque) P3: Severe (PWLQ247-237/SIS5-7/3 vessels moderate; 1 vessel severeplaque) P4: Extensive [...] has slightly increased in size since04/19/2024. Raz Lópze M.D. [facility] [place] PROCEDURES Final Result * (ABNORMAL) Renal [...] López M.D. LAB BLOOD ADD-ON Final Result [facility] [address] [place] [address], [facility] [address] [place] [address] * (ABNORMAL) CBC without Differential (09/09/2024 9:42 [...] López M.D. LAB BLOOD ADD-ON Final Result [address] [address], [place] [address] * ECG 12 Lead (09/09/2024 7:54 AM CDT) Ventricular Rate ECG/Min 70 BPM MUSE QRSD Interval 170 ms MUSE QT Interval 490 ms MUSE QTC Interval 529 ms MUSE R Empire -71 degrees MUSE T Wave Empire 104 degrees MUSE 09/09/2024 7:54 AM CDT [...] ECG ORDERABLES Final Result Performing Organization Address [facility] de Phone Number MUSE NA * ECG 12 Lead (09/09/2024 6:49 AM CDT) Ventricular Rate ECG/Min 70 BPM MUSE QRSD Interval 170 ms MUSE QT Interval 488 ms MUSE QTC Interval 527 ms MUSE R Empire -70 degrees MUSE T Wave Empire 104 degrees MUSE 09/09/2024 6:49 AM CDT [...] Edited Result - Final Performing Organization Address [facility] Co de Phone Number MUSE [...] Lo M.D. LAB BLOOD ADD-ON Final Result [facility] [address] [place] [address], [facility] DTL [facility] [address] [place] [address] * (ABNORMAL) Basic Metabolic Panel (09/08/2024 6:33 [...] BLOOD ADD-ON Final Result Performing Organization Address City/[facility]/ZIP Co de Phone Number [facility] [address] [place] [address], [facility] [address] [place] [address] * (ABNORMAL) CBC without Differential (09/08/2024 6:33 [...] Lo M.D. LAB BLOOD ADD-ON Final Result [facility] [address] [place] [address], [facility] [address] [place] [address] * (ABNORMAL) Prothrombin Time (PT) (09/08/2024 4:33 [...] BLOOD ADD-ON Final Result Performing Organization Address [facility]/ZIP Co de Phone Number [address] [place] [address] * (ABNORMAL) Prothrombin Time (PT) (09/07/2024 6:59 PM CDT) Pathologist [facility] Prothrombin Time, P 18.6(H) 9.4 - 12.5 [...] BLOOD ADD-ON Final Result Performing Organization Address City/[facility]/[place] [address], [facility] [place] [address] * RIGHT HEART CATHETERIZATION, DRUG STUDY (09/07/2024 [...] Ordered by an unspecified provider. Default Authenticator Lbane ECG ORDERABLES Final Result * (ABNORMAL) S-TSH (Thyroid-Stimulating Hormone - Sensitive) (09/07/2024 4:40 AM CDT) TSH, Sensitive 5.1(H) 0.3 - 4.2 mIU/L 09/07/2024 6:00 AM CDT DTL Blood (Blood, Venous) 09/07/2024 4:40 AM CDT 09/07/2024 5:36 AM CDT Myrtle Alejandro APRN C.N.P., M.S.N. LAB BLOOD ADD-ON Final Result [facility] [address] [place] [address], [facility] [address] [place] [address] * (ABNORMAL) Magnesium (09/07/2024 4:40 AM CDT) Magnesium, S 2.5(H) 1.7 - 2.3 mg/dL 09/07/2024 6:00 AM CDT DTL Blood (Blood, Venous) 09/07/2024 4:40 AM CDT 09/07/2024 5:36 AM CDT Myrtle Alejandro APRN, C.N.P., M.S.N. LAB BLOOD ADD-ON Final Result Performing Organization Address [facility] de Phone Number [facility] [address] [place] [address] * Iron and Total Iron-Binding Capacity (09/07/2024 [...] BLOOD ADD-ON Final Result Performing Organization Address [facility] de Phone Number [facility] [address] [facility] [address] [place] [address] * Lipid Panel (09/07/2024 4:40 AM CDT) [...] APRN.N.P., M.S.N. LAB BLOOD ADD-ON Final Result [facility] [address] [place] [address], [facility] [address] [place] [address] * (ABNORMAL) Comprehensive Metabolic Panel (09/07/2024 4:40 [...] LAB BLOOD ADD-ON Final Result [facility] [id number] [place] [address] [address] * (ABNORMAL) Prothrombin Time (PT) (09/07/2024 4:39 AM CDT) [facility] Prothrombin Time, P 23.0(H) 9.4 - 12.5 sec 09/07/2024 5:38 AM CDT DTL INR 2.1 0.9 - 1.1 09/07/2024 5:38 AM CDT DTL Comment: ----ADDITIONAL INFORMATION---- Standard intensity warfarin therapeutic range: 2.0 to 3.0 High intensity warfarin therapeutic range: 2.5 to 3.5 Blood (Blood, Venous) 09/07/2024 4:39 AM CDT 09/07/2024 5:21 AM CDT us Marquita Lo M.D. LAB BLOOD ADD-ON Final Result [facility] [address] [place], [place] [address] [place] [address] * (ABNORMAL) CBC with Differential, Blood (09/07/2024 4:39 AM CDT) [facility] Hemoglobin 9.5(L) 13.2 - 16.6 g/dL 09/07/2024 [...] APRN.N.P., M.S.N. LAB [place] [address], [facility] DTL [facility] 200 [place] [address] * (ABNORMAL) Hemoglobin A1c (09/07/2024 4:39 AM [...] BLOOD ADD-ON Final Result Performing Organization Address City/[facility]/ZIP Co de Phone Number [facility] [address] [place] [address] * (ABNORMAL) T3 (Triiodothyronine), Total (09/07/2024 4:35 AM CDT) T3 (Triiodothyroni ne), Total, S 60(L) 80 - 200 ng/dL 09/07/2024 8:48 AM CDT DTL Blood 09/07/2024 4:35 AM CDT 09/07/2024 8:13 AM CDT Deanne Kilpatrick M.D., M.S. LAB BLOOD ADD-ON F inal Result Performing Organization Address City/[facility]/ZIP Co de Phone Number [facility] [address] [place], [place] [address] [place] [address] [address] [place] [address] * T4 (Thyroxine), Free (09/07/2024 4:35 AM CDT) T4 (Thyroxine), Free, S 1.1 0.9 - 1.7 ng/dL 09/07/2024 8:48 AM CDT DTL Blood (Blood, Venous) 09/07/2024 4:35 AM CDT 09/07/2024 8:13 AM CDT Marquita Lo M.D. LAB BLOOD ADD-ON Final Result Performing Organization Address City/[facility]/ZIP Co de Phone Number [facility] [address] [place] [address], [facility] [address] [place] [address] * (TTE) 2D ECHO DOPPLER COLOR (09/06/2024 [...] Normal left ventricular chamber size. Calculated ejection [id number]%. 9. Abnormal ventricular septal motion - post-operative without otherregional wall motion abnormalities. 10. Severely enlarged inferior vena cava size with no inspiratorycollapse. 11. Tiny posterior pericardial effusion. 12. Compared to the report of 04/21/2024 no significant change hasoccurred. Side by side comparison of images performed. Findings Echo performed at the patient's bedside. Echocardiogram performed per leftventricular function protocol. Last full echocardiogram [id number]/19/2024. LEFT VENTRICLE:Normal left ventricular chamber size. Calculated [...] normal distal ICA in accordance with [place] Symptomatic Carotid Endarterectomy Trial (NASCET). Procedure Note [...] consistent witha 50-69% stenosis. Marquita Lo M.D. [facility] [place] PROCEDURES Final Result * CARDIOVASCULAR IMPLANTABLE ELECTRONIC DEVICE - NO CHARGE (09/06/2024 7:44 AM CDT) Date Time Interrogation Session [id number] Submittable LAB SYSTEM Implantable Pulse Generator Mattress Filler VideoBurst LAB SYSTEM Implantable Pulse Generator Type Pacemaker [facility] Implantable Pulse Generator Model L321 Submittable LAB SYSTEM Implantable Pulse Generator Serial Number [id number] [facility] Implantable Pulse Generator Implant Date 20160103 Submittable LAB SYSTEM Abelino Statistic RA Percent Paced 0.00 Submittable LAB SYSTEM Abelino Statistic RV Percent Paced 99.00 Submittable LAB SYSTEM Lead Channel Setting Sensing Sensitivity 0.15 [facility] Lead Channel Measurements Date and Time 20240803 Submittable LAB SYSTEM Lead Channel Setting Sensing Sensitivity [...] [facility] SYSTEM Ventricular chambers paced during SIZE MARKER pacing. RV [facility] Abelino Setting [...] 1 FOUNDAT ION LAB SYSTEM Implantable Lead Mattress Filler Guidant [facility] Implantable Lead Model 4086 Flextend [facility] Implantable Lead Location Right Atrium [facility] Implantable Lead Connection Status Connected [facility] Implantable Lead Serial Number [id number] [facility] Implantable Lead Implant Date 20041129 [facility] Implantable Lead Special Function Lead length: 45.00 cm [facility] Implantable Lead Mattress Filler Guidant [facility] Implantable Lead Model 4087 Flextend [facility] Implantable Lead Location Right Ventricle [facility] Implantable Lead Connection Status Connected [facility] Implantable Lead Serial Number [id number] [facility] Implantable Lead Implant Date [...] episodes since last remote. * Presenting rhythm: RESIDENTIAL MORTGAGE MANAGER @ 70 bpm * Underlying rhythm: RESIDENTIAL MORTGAGE MANAGER @ 30 bpm * Heart Rate [...] No prodromal episodes. He was taken to [place] ER where he had some NSVT at [...] VHRepisodes since last remote. * Presenting rhythm: RESIDENTIAL MORTGAGE MANAGER @ 70 bpm * Underlying rhythm: RESIDENTIAL MORTGAGE MANAGER@ 30 bpm * Heart Rate Histograms [...] No prodromal episodes. He was taken to [place] [facility] where hehad some NSVT at 1030 [...] Lo M.D. LAB BLOOD ADD-ON Final Result [facility] [address] [place] [address], [facility] DTL [facility] [address] [place] [address] * (ABNORMAL) D-Dimer (09/06/2024 5:06 AM CDT) [...] BLOOD ADD-ON Final Result Performing Organization Address [facility]/ZIP Co de Phone Number [facility] [address] [place] [address], [facility] [address] [place] [address] * (ABNORMAL) Prothrombin Time (PT) (09/06/2024 5:06 AM CDT) Prothrombin Time, P 33.9(H) 9.4 - 12.5 sec 09/06/2024 5:17 AM CDT [facility] INR 3.1 0.9 - 1.1 09/06/2024 5:17 AM CDT [facility] Comment: ----ADDITIONAL INFORMATION---- Standard intensity warfarin therapeutic range: 2.0 to 3.0 High intensity warfarin therapeutic range: 2.5 to 3.5 Blood (Blood, Venous) 09/06/2024 5:06 AM CDT 09/06/2024 5:11 AM CDT Khoi Zacarias APRN, C.N.P. LAB BLOOD ADD-ON Final Result Performing Organization Address City/[facility]/ZIP Co de Phone Number [facility] [address] [place] [address], [facility] [address] [place] [address] * (ABNORMAL) Troponin T, 2 Hour with 6 Hour Reflex, 5th Gen (09/06/2024 5:06 AM CDT) [facility] Troponin T, 2 hr, 5th gen 48(H) <=15 ng/L 09/06/2024 5:27 AM CDT [facility] 2H Delta 2 ng/L 09/06/2024 5:27 AM CDT [facility] Comment:6 hour collection no t indicated. 2H Delta Interp Not Changing 09/06/2024 5:27 AM CDT [facility] Blood 09/06/2024 5:06 AM CDT 09/06/2024 5:10 AM CDT Khoi Zacarias APRN, C.N.P. LAB BLOOD TROPONI N Final Result Performing Organization Address City/[facility]/ZIP Co de Phone Number [facility] [address] [place] [address] * (ABNORMAL) Troponin T, Baseline with 2 Hour/6 Hour Reflex Biomarker Panel (09/06/2024 2:58 AM CDT) [facility] Troponin T, Baseline, 5th gen 46(H) <=15 ng/L 09/06/2024 3:32 AM CDT [facility] Blood (Blood, Venous) 09/06/2024 2:58 AM CDT 09/06/2024 3:02 AM CDT Khoi Zacarias APRN, C.N.P. LAB BLOOD TROPONI N Final Result Performing Organization Address City/[facility]/ZIP Co de Phone Number [facility] [address] [place] [address] * (ABNORMAL) CBC with Differential, Blood (09/06/2024 2:58 AM CDT) [facility] Hemoglobin 9.9(L) 13.2 - 16.6 g/dL 09/06/2024 [...] APRN, C.N.P. LAB BLOOD ADD-ON Final Result [facility] [address] [place] [address], [facility] STMA [facility] [address] [place] [address] [facility] [address] [place] [address] * Glucose, POCT (09/06/2024 2:58 AM CDT) Glucose, POCT, B 108 70 - 140 mg/dL 09/06/2024 3:35 AM CDT [facility] Site Venstick 09/06/2024 3:35 AM CDT [facility] Blood (Blood, Capillary) 09/06/2024 2:58 AM CDT 09/06/2024 2:58 AM CDT us Khoi Zacarias APRN, C.N.P. LAB POCT ORDERABL ES-MANUAL Final Result [facility] [address] [place] [address], [facility] PCLX [facility] [address] [place] [address] * (ABNORMAL) Basic Metabolic Panel (09/06/2024 2:58 [...] BLOOD ADD-ON Final Result Performing Organization Address [facility] de Phone Number [facility] [address] [place] [address], [facility] DTL [facility] [address] [place] [address] * ECG 12 Lead (09/06/2024 2:47 AM CDT) Ventricular Rate ECG/Min 70 BPM MUSE QRSD Interval 168 ms MUSE QT Interval 476 ms MUSE QTC Interval 514 ms MUSE R Empire -70 degrees MUSE T Wave Empire 106 degrees MUSE 09/06/2024 2:47 AM CDT [...] ORDERABLES F inal Result Performing Organization Address [facility] de Phone Number MUSE NA documented in [...] (Given - Provider: Clifton Lopes M.S., R.N., [facility] furosemide injection 40 mg (Lasix) (COMPLETED) [...] (Given - Provider: Clifton Lopes M.S., R.N., [facility] nitroglycerin SL tablet 0.4-0.8 mg (Nitrostat) [...] (Given - Provider: Clifton Lopes M.S., R.N., [facility] sodium chloride (PF) 0.9 % injection [...] (Given - Provider: Clifton Lopes M.S., R.N., [facility]) sodium chloride 0.9 % injection 3 mL [...] 1355 (Given - Provider: Nidia Marin C.N.M.TArmando, COTCB) torsemide tablet 40 mg (Demadex) 40 mg, [...] Orders 1354 (Given - Provider: Andrew Greenwood, [facility]) PRN Medication Order 09/08/2024 09/09/2024 09/10/2024 acetaminophen [...] injection documented in this encounter Care Teams Fuel Verification Technician Relationship Specialty Start Date End Date Elsewhere, Pcp PCP - General Family Medicine 11/27/20 Mary Ann Sol [address] [place] [address] Bookie Physician 01/17/19 documented as of this encounter
--- OUTSIDE RECORDS SUMMARY | 2024-09-13 05:33 | XMS_ITS | Encounter Summary ---
Author Organization [facility] Address [address] [place] [address] Care Team Providers Care Cylinder Machine Operator Pulp Drier Name Role Phone Elsewhere, Pcp Primary Care Provider Unavailabl e Encounter Details Date Type Department Care Team (Late st Contact Info) Description 09/08/2024 Clinical Communication [facility] [address] [place] [address] Vp PackagingLobito M.D. Social History Tobacco Use Types Packs/Day Years Used Date Smoking Tobacco: Former Cigarettes 1 50 0 05/04/1954 - 05/04/2004 Smokeless Tobacco: Never Alcohol Use Standard Drinks/Week Comments Yes 5 (1 standard drink = 0.6 oz pur e alcohol) [facility] Utilities Answer Date Recorded In the past 12 months has e [employer], gas, oil, or water [employer] threatened to shut off services in your [...] often do you attend chur ch or shinto services? More than 4 times per year 05/08/2022 Do you belong to any clubs o r organizations such as restoration groups, unions, fraternal or athletic groups, or [...] care, and heating? Not very hard 05/08/2022 [facility] - [...] your living situation today? I have a [facility] place to live 09/06/2024 Education Answer Date Recorded What is the highest level of school you have completed or the highest degree you have received? 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 [address] [place] [address] 09/14/2024 9:10 AM CDT Appointment Department of Laboratory Medicine and Pathology, [facility] in [place], [place] [address] [place] [address] Marquita Lo M.D. [address] [place] [address] 09/14/2024 9:30 AM CDT Appointment Department of Cardiac Rehabilitation in [place], [place] [address] [place] [address] Marquita Lo M.D. [address] [place] [phone] 09/14/2024 2:00 PM CDT Comprehensive Visit Department of Cardiovascular Medicine in [place], [place] [address] [place] [address] Tom Plascencia M.D. [address] [place] [address] documented as of this encounter Visit Diagnoses Not on filedocumented in this encounter Care Teams Cylinder Machine Operator Pulp Drier Relationship Specialty Start Date End Date Elsewhere, Pcp PCP - General Family Medicine 11/27/20 Mary Ann Sol [address] [place] [address] Steam Blocker Physician 01/17/19 documented as of this encounter
--- OUTSIDE RECORDS SUMMARY | 2024-09-13 05:33 | XMS_ITS | Encounter Summary ---
Author Organization [facility] Address [address] [place] [address] Care Team Providers Care Glove Parts Cutter Name Role Phone Elsewhere, Pcp Primary Care Provider Unavailabl e Encounter Details Date Type Department Care Team (Late st Contact Info) Description 09/08/2024 Clinical Communication [facility] [address] [place] [phone] Deanne Kilpatrick M.D., M.S. [address] [place] [phone] Social History Tobacco Use Types Packs/Day Years Used Date Smoking Tobacco: Former Cigarettes 1 50 0 [birth year]/04/1954 - 05/04/2004 Smokeless Tobacco: Never Alcohol Use Standard Drinks/Week Comments Yes 5 (1 standard drink = 0.6 oz pur e alcohol) [facility] Utilities Answer Date Recorded In the past 12 months has [facility] [employer], gas, oil, or water [employer] threatened to shut off services in your [...] How often do you attend chur or spiritism services? More than 4 times per year 05/08/2022 Do you belong to any clubs o r organizations such as baptism groups, unions, fraternal or athletic groups, or [...] care, and heating? Not very hard 05/08/2022 [facility] - [...] your living situation today? I have a [facility] place to live 09/06/2024 Education Answer Date Recorded What is the highest level of school you have completed or the highest degree you have received? 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 [address] [place] [address] 09/14/2024 9:10 AM CDT Appointment Department of Laboratory Medicine and Pathology, [facility] in [place], [place] [address] [place] [address] Marquita Lo M.D. [address] [place] [address] 09/14/2024 9:30 AM CDT Appointment Department of Cardiac Rehabilitation in [place], [place] [address] [place] [address] Marquita Lo M.D. [address] [place] [phone] 09/14/2024 2:00 PM CDT Comprehensive Visit Department of Cardiovascular Medicine in [place], [place] [address] [place] [address] Tom Plascencia M.D. [address] [place] [phone] documented as of this encounter Visit Diagnoses Not on filedocumented in this encounter Care Teams Glove Parts Cutter Relationship Specialty Start Date End Date Elsewhere, Pcp PCP - General Family Medicine 11/27/20 Mary Ann Sol [address] [place] [address] Playground Supervisor Physician 01/17/19 documented as of this encounter
--- OUTSIDE RECORDS SUMMARY | 2024-09-13 05:33 | XMS_ITS | Encounter Summary ---
Author Organization [facility] Address [address] [place] [address] Care Team Providers Care Color Shop Helper Name Role Phone Elsewhere, Pcp Primary Care Provider Unavailabl e Reason for Visit * Reason Comments Syncope Palpitations Encounter Details Date Type Department Care Team (Late st Contact Info) Description 09/06/2024 2:44 AM CDT - 09/10/2024 2:13 PM CDT Hospital Encounter [facility], Tenth Floor [address] [place] [address] [phone] Khoi Zacarias, YIN, C.N.P. [address] [place] [address] [phone] Marquita Lo M.D. [address] [place] [address] [phone] Zhou Meredith M.D. [address] [place] [address] [phone] Syncope (Primary Dx); Pulmonary Hypertension Due To [...] In the past 12 months has e [employer], [employer], oil, or water [employer] threatened to shut off services in your [...] often do you attend chur ch or moravian services? More than 4 times per year 05/08/2022 Do you belong to any clubs o r organizations such as nondenominational groups, unions, fraternal or athletic groups, or [...] care, and heating? Not very hard 05/08/2022 [facility] - Occupational Stress [...] your living situation today? I have a [facility] place to live 09/06/2024 Education Answer Date Recorded What is the highest level of school you have completed or the highest degree you have received? Bachelor's degree (e.g., BA, AB, BS) 01/13/2019 Sex and Gender Information Value Date Recorded Sex Assigned at Male 08/22/2018 2:26 PM CDT Legal Sex Male 11:09 AM PRECINCT POLICE CAPTAIN Gender Identity Male 08/22/2018 2:26 PM CDT [...] through Care Everywhere. * Enoxaparin (By injection) (Guatemalan) documented in this encounter Medications at Time [...] not fall. There was short run of [employer] tele. This was similar episode of palpitation [...] tissue disease. 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 Group [...] NSVT under investigation #Status post 25 mm [facility] mechanical aortic valve prosthesis with Hemashield ascending [...] home. Plan discussed with RST CARD 1 Laundrette Owner, Dr. Lo, who was present during diaz portions of the evaluation today. Please page the RST CARD 1 service pager at [phone] with any questions. Deanne Kilpatrick MD (Yui) PGY-1, Preliminary Internal Medicine [facility] Pager [phone] * David Avina Pharm.D., R.Ph., [facility] - 09/09/2024 8:46 AM CDT Pharmacist Progress [...] Target INR: 2 - 3 DOAC Assessment: [facility] AVR Warfarin Administrations (last 168 hours) Date/Time [...] home. Plan discussed with RST CARD 1 Laundrette Owner, Dr. Lo, who was present during diaz portions of the evaluation today. Please page the RST CARD 1 service pager at [phone] with any questions. Deanne Kilpatrick MD (Yui) PGY-1, Preliminary Internal Medicine [facility] Pager [phone] * Domingo Ramsya M.B.B.SArmando - 09/08/2024 11:11 AM CDT Images [...] capillary. Right Heart cath yesterday consistent with Black Pickler (combined pre and post capillary PH). Group [...] PM CDT * David Avina Pharm.D., R.Ph., [facility] - 09/08/2024 10:28 AM CDT Pharmacist Progress [...] Target INR: 2 - 3 DOAC Assessment: [facility] AVR Warfarin Administrations (last 168 hours) Date/Time [...] an outpatient. * David Avina Pharm.D., R.Ph., [facility] - 09/07/2024 8:04 AM CDT Pharmacist Progress [...] Target INR: 2 - 3 DOAC Assessment: [facility] AVR Warfarin Administrations (last 168 hours) Date/Time [...] Chen M.D. - 09/07/2024 7:24 AM CDT [facility] progress note The patient came in [...] [place] [phone] with any questions. Staffed with Dr. Thornton. Anju Chen MD General rn endoscopy * Deanne Kilpatrick M.D., M.S. - 09/07/2024 [...] home. Plan discussed with RST CARD 1 Laundrette Owner, Dr. Lo, who was present during diaz portions of the evaluation today. Please page the RST CARD 1 service pager at [phone] with any questions. Deanne Kilpatrick MD (Yui) PGY-1, Preliminary Internal Medicine [facility] Pager [phone] * Tara Garcia R.N., C.W.OArmandoC.N. - 09/06/2024 2:55 PM CDT [facility] Wound RN consulted to assess Sam Gross skin alterations. Wound assessment, pain, and Jaspreet score noted in the flowsheet. The patient verbally consented to photography of the affected area for clinical trending purposes. Images were taken and are available in [employer]. History: Per chart review, Sam Gross is [...] Odor None *Exudate Amount None Lakia-wound Assessment Dry;Fragile;Flakes;[place] Treatments Cleansed Periwound Treatment Cleansed (Comment) Wound Cleansed with Wound cleanser *Primary Dressing Other (Comment) (Plain Petrolatum) *Primary Dressing Frequency of Change Daily & PRN Primary Dressing Changed New Primary Dressing Status Intact;Clean *Secondary Dressing Open to air Changed by Wound manager department Ongoing management Nursing;Patient/caregiver Wound 09/06/24 Skin Tear [...] Secondary Dressing Status Clean;Dry;Intact Changed by Wound manager department Ongoing management Nursing Wound 09/06/24 Skin Tear [...] Secondary Dressing Status Clean;Dry;Intact Changed by Wound manager department Ongoing management Nursing Wound 09/06/24 Skin Tear [...] Secondary Dressing Status Clean;Dry;Intact Changed by Wound manager department Ongoing management Nursing Wound 09/06/24 Abrasion Hand [...] Dressing Open to air Changed by Wound manager department Ongoing management Nursing Wound 09/06/24 Hematoma Head [...] nursing. They agree to the plan. The [facility] RN will sign-off. Please place a wound [...] answered. Morena Agudelo CT CT Job ID: [id number] * Miguelangel Thornton M.B.B.S. - 09/06/2024 11:31 [...] answered. Mamie AgudeloS. CT CT Job ID: [id number] * David Avina, Pharm.DArmando, R.Ph., [facility] - 09/06/2024 7:59 AM CDT Pharmacist Progress [...] Target INR: 2 - 3 DOAC Assessment: [facility] AVR Warfarin Administrations (last 168 hours) None [...] Last interrogation: remote 08.04.2024 Presenting rhythm: AF. SENIOR LINUX UNIX ADMINISTRATOR Underlying rhythm: SENIOR LINUX UNIX ADMINISTRATOR at 30 bpm Pacing mode: VVIR lower [...] No prodromal episodes. He was taken to [place] ER where he had some NSVT at [...] with a tricuspid valve repair in 2014 Trwr-li-loexygcm mitral valve regurgitation Mvvt-ge-jfmgpwnf tricuspid valve regurgitation Briefly, he had just [...] normal size, not diseased. Presented to the [place] ED. pacemaker interrogation revealed a 12nd run [...] PGY 3 Department of Internal Medicine Pager #[phone] [place], [place] * Magdalena Sandoval M.B., B.Chir. - [...] was brought in by the ambulance to [facility]. There, he underwent CT head and CT [...] Last interrogation: remote 08.04.2024 Presenting rhythm: AF. SENIOR LINUX UNIX ADMINISTRATOR Underlying rhythm: SENIOR LINUX UNIX ADMINISTRATOR at 30 bpm Pacing mode: VVIR lower [...] No evidence of disorganized thinking. Reliable history vp compliance. ASSESSMENT / PLAN Mr. Gross is hospitalized [...] of nonsustained V-tach Consider HRS consult Continue RADIATION THERAPY TECHNOLOGIST metoprolol 25 mg daily (per patient) Continue [...] the RST CARD 1 [place] [phone] with any questions. Erica John, Luis Enrique. [...] 83 y.o. male who was admitted to [facility] in [place] on 09/06/2024 for Syncope [R55]. Precautions Other [...] walker, Single point cane Adaptive Equipment Owned: Doughmaker Other DME Owned: Regular flat bed Prior [...] valvuloplasty Notes: [employer] Annuloflex ring 28mm, Serial #[id number], [id number] VASECTOMY * Kristy Ott, O.TArmando, MOT - 09/09/2024 9:35 AM CDT Occupational Therapy Acute Hospital Inpatient Evaluation/Treatment SUBJECTIVE Patient's Name: Sam Gross Referring/Attending Provider: Zhou Meredith M.D. Reason for Referral: Occupational Therapy Evaluation and Treatment Onset Date: 09/06/2024 PERTINENT MEDICAL / SURGICAL HISTORY: Medical History[1] Surgical History[2] History of Present Illness: Sam Gross is a 83 y.o. male who was admitted to [facility] in [place] on 09/06/2024 for Syncope [R55]. 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: Doughmaker Other DME Owned: Regular flat bed Prior [...] not limit participation in activity Outcome Measures: AM-[facility] Inpatient Short Form: Putting on and [...] Drug Study; Surgeon: Mynor Perez M.D.; Location: [facility] CATH ANGIOGRAM N/A 09/07/2024 Procedure: HEART CATHETERIZATION - RIGHT; Surgeon: Mynor Perez M.D.; Location: [facility] GALLBLADDER SURGERY HERNIA REPAIR TONSILLECTOMY TRICUSPID VALVE, VALVULOPLASTY N/A 11/01/2014 Tricuspid valve, valvuloplasty Notes: [employer] Annuloflex ring 28mm, Serial #[id number], [id number] VASECTOMY * Dalila Grigsby CEP - 09/08/2024 10:55 AM CDTAssociated Order(s): IP CONSULT TO CARDIAC REHABILITATION Thank you for the cardiac rehabilitation consult, however this patient does not currently have a qualifying diagnosis. If that changes or you have any questions we can be reached Thursday - Thursday, 7:30 to 4:00pm at [phone]. To qualify for participation in a Cardiac [...] size with severelyreduced systolic function, RVSP 72, krkw-do-dnfnlzdy mitral regurgitation, severe tricuspid regurgitation, and mildly [...] page the HRS Consult Service pager at [phone] with any questions. Staffed with Dr. Thornton. Anju Chen MD General Clinical Services Consultant * Marquita Lo M.D. - 09/06/2024 11:38 [...] of a syncopal episode. He was evaluated [facility] after he had a no prodromal syncopal episode while carrying some boxes. He did hit his head and had undergone CT imaging at the outside facility which was negative. They were concerned as they felt that they saw a run of V-tach while he was present in [place]. The patient has remained asymptomatic since his [...] did show V-tach while he was in [facility] but did not show any obvious signs of arrhythmia with his syncopal episode earlier. Overall after speaking with the provider who performed pacemaker interrogation he did recommend admission for further workup for this syncopal episode. Final Diagnoses: as of 09/06/24434 Syncope Khoi Zacarias APRN, C.N.P. 09/06/24434 * Sumit Hutson R.N. - 09/06/2024 2:26 AM CDT Pt presents from [facility] after suffering syncopal fall, trauma scans [...] was slightly elevated, but has CKD Per [facility] hx: Dr. Dickey (PN 11/27/20)- CKD [...] 8:30 AM CDT Appointment Department of Radiology, [facility] in [place], [place] [address] [place] [phone] Marquita Lo M.D. [address] [place] [phone] 09/14/2024 9:10 AM CDT Appointment Department of Laboratory Medicine and Pathology, [facility] in [place], [place] [address] [place] [phone] Marquita Lo M.D. [address] [place] [phone] 09/14/2024 9:30 AM CDT Appointment Department of Cardiac Rehabilitation in [place], [place] [address] [place] [phone] Marquita Lo M.D. [address] [place] [phone] 09/14/2024 2:00 PM CDT Comprehensive Visit Department of Cardiovascular Medicine in [place], [place] [address] [place] [phone] Tom Plascencia M.D. [address] [place] [phone] documented as of this encounter Procedures Procedure [...] (ABNORMAL) Magnesium (09/10/2024 5:00 AM CDT) Pathologist [facility] Magnesium, S 2.4(H) 1.7 - 2.3 mg/dL 09/10/2024 6:46 AM CDT DTL Blood (Blood, Venous) 09/10/2024 5:00 AM CDT 09/10/2024 6:15 AM CDT Raz López M.D. LAB BLOOD ADD-ON Final Result [address] [address], [facility] [address] [address] * (ABNORMAL) Basic Metabolic Panel (09/10/2024 5:00 AM CDT) Pathologist [facility] Potassium, S 4.7 3.6 - [...] López M.D. LAB BLOOD ADD[place] [address], [facility] [address] * (ABNORMAL) CBC without Differential (09/10/2024 5:00 [...] BLOOD ADD-ON Final Result Performing Organization Address [facility] de Phone Number [facility] [address] [facility] 200 [place] [address] * (ABNORMAL) Prothrombin Time (PT) (09/10/2024 5:00 [...] BLOOD ADD-ON Final Result Performing Organization Address [facility] Co de Phone Number [facility] [address] [facility] 200 [place] [address] * CT Cardiac Angiogram with Coronary Arteries [...] 5: 100%, Occluded N: Non-diagnostic study Plaque Inman: P1: Mild (CACS1-100/SIS1-2/1-2 vessels mild plaque) P2: Moderate ([id number]/SIS3-4/1-2 vessels moderate; 3 vessels mild plaque) P3: Severe (JMML587-650/SIS5-7/3 vessels moderate; 1 vessel severe plaque) P4: [...] Similar bilateral noncalcified solid pulmonary nodules, including mm greatest dimension nodule in the peripheral [...] 5: 100%, Occluded N: Non-diagnostic study Plaque Inman: P1: Mild (CACS1-100/SIS1-2/1-2 vessels mild plaque) P2: Moderate ([id number]/SIS3-4/1-2 vessels moderate; 3 vessels mildplaque) P3: Severe ([id number]/SIS5-7/3 vessels moderate; 1 vessel severeplaque) P4: Extensive [...] Renal Function Panel (09/09/2024 9:42 AM CDT) [facility] Potassium, S 4.8 3.6 - 5.2 mmol/L [...] BLOOD ADD-ON Final Result Performing Organization Address City/[facility]/ZIP Co de Phone Number [facility] 200 [place] [address], [facility] [place] [facility] 200 [place] [address] * (ABNORMAL) CBC without Differential (09/09/2024 9:42 AM CDT) Pathologist [facility] Hemoglobin 10.4(L) 13.2 - 16.6 [...] BLOOD ADD-ON Final Result Performing Organization Address City/[facility]/ZIP Co de Phone Number [facility] 200 [place] [address], [facility] 200 [place] [address] * ECG 12 Lead (09/09/2024 7:54 AM CDT) Ventricular Rate ECG/Min 70 BPM MUSE QRSD Interval 170 ms MUSE QT Interval 490 ms MUSE QTC Interval 529 ms MUSE R [place] -71 degrees MUSE T Wave [place] 104 degrees MUSE 09/09/2024 7:54 AM CDT [...] MUSE QTC Interval 527 ms MUSE R [place] -70 degrees MUSE T Wave [place] 104 degrees MUSE 09/09/2024 6:49 AM CDT [...] Edited Result - Final Performing Organization Address City/[facility] Co de Phone Number MUSE NA * [...] BLOOD ADD-ON Final Result Performing Organization Address [facility] de Phone Number [address] [address], [facility] [address] [address] * (ABNORMAL) Basic Metabolic Panel (09/08/2024 6:33 AM CDT) Pathologist [facility] Potassium, S 5.1 3.6 - [...] Lo M.D. LAB BLOOD ADD-ON Final Result [facility] 200 [place] [address], [address] [address] * (ABNORMAL) CBC without Differential (09/08/2024 6:33 AM CDT) [facility] Hemoglobin 10.1(L) 13.2 - 16.6 g/dL 09/08/2024 [...] BLOOD ADD-ON Final Result Performing Organization Address [facility] Co de Phone Number [address] [place] [address] * (ABNORMAL) Prothrombin Time (PT) (09/08/2024 4:33 [...] BLOOD ADD-ON Final Result Performing Organization Address [facility] Co de Phone Number [address] [address] * (ABNORMAL) Prothrombin Time (PT) (09/07/2024 6:59 [...] Lo M.D. LAB BLOOD ADD-ON Final Result [facility] [address] [place] [address], [place] DTL [facility] [address] [place] [address] * RIGHT HEART CATHETERIZATION, DRUG STUDY (09/07/2024 [...] complete report, see the Order-Level Documents. Result [facility] Marquita Lo M.D. CV CARDIAC CATH [...] BLOOD ADD-ON Final Result Performing Organization Address City/[facility]/ZIP Co de Phone Number [facility] [address] [place] [address] * (ABNORMAL) Magnesium (09/07/2024 4:40 AM CDT) Magnesium, S 2.5(H) 1.7 - 2.3 mg/dL 09/07/2024 6:00 AM CDT DTL Blood (Blood, Venous) 09/07/2024 4:40 AM CDT 09/07/2024 5:36 AM CDT us Myrtle Alejandro APRN, C.N.P., M.S.N. LAB BLOOD ADD-ON Final Result Performing Organization Address City/[facility] Co de Phone Number [facility] [address] [place] [address] * Iron and Total Iron-Binding Capacity (09/07/2024 [...] BLOOD ADD-ON Final Result Performing Organization Address City/[facility]/ZIP Co de Phone Number [facility] [address] DTL [facility] [address] [place] [address] * Lipid Panel (09/07/2024 4:40 AM CDT) [...] C.N.P., M.S.N. LAB BLOOD ADD-ON Final Result [facility] 200 [place] [address], [facility] DTL [facility] 200 [place] [address] * (ABNORMAL) Comprehensive Metabolic Panel (09/07/2024 4:40 AM CDT) Pathologist [facility] Potassium, S 4.7 3.6 - [...] C.N.P., M.S.N. LAB BLOOD ADD-ON Final Result [facility] 200 [place] [address], [facility] 200 [place] [address] * (ABNORMAL) Prothrombin Time (PT) (09/07/2024 4:39 [...] Lo M.D. LAB BLOOD ADD-ON Final Result [facility] [address] [place] [address], [facility] DTL [facility] 200 [place] [address] * (ABNORMAL) CBC with Differential, Blood (09/07/2024 [...] C.N.P., M.S.N. LAB BLOOD ADD-ON Final Result [facility] [address] [place] [address], [facility] DTL [facility] [address] [place] [address] DHPM [facility] [address] [place] [address] * (ABNORMAL) Hemoglobin A1c (09/07/2024 4:39 AM [...] BLOOD ADD-ON Final Result Performing Organization Address [facility] [place] [address] * (ABNORMAL) T3 (Triiodothyronine), Total (09/07/2024 4:35 AM CDT) T3 (Triiodothyroni ne), Total, S 60(L) 80 - 200 ng/dL 09/07/2024 8:48 AM CDT DT Blood 09/07/2024 4:35 AM CDT 09/07/2024 8:13 AM CDT Deanne Kilpatrick M.D., M.S. LAB BLOOD ADD-ON F inal Result Performing Organization Address City/[facility] Co de Phone Number [facility] 200 [place] [address], [place] [address] * T4 (Thyroxine), Free (09/07/2024 4:35 AM CDT) T4 (Thyroxine), Free, S 1.1 0.9 - 1.7 ng/dL 09/07/2024 8:48 AM CDT DTL Blood (Blood, Venous) 09/07/2024 4:35 AM CDT 09/07/2024 8:13 AM CDT us Marquita Lo M.D. LAB BLOOD ADD-ON Final Result [facility] [address] [place] [address], [facility] [address] [place] [address] * (TTE) 2D ECHO DOPPLER COLOR (09/06/2024 3:40 PM CDT) Pathologist [facility] Ejection Fraction 63 MC CV [...] Normal left ventricular chamber size. Calculated ejection [id number]%. 9. Abnormal ventricular septal motion - post-operative without otherregional wall motion abnormalities. 10. Severely enlarged inferior vena cava size with no inspiratorycollapse. 11. Tiny posterior pericardial effusion. 12. Compared to the report of 04/21/2024 no significant change hasoccurred. Side by side comparison of images performed. Findings Echo performed at the patient's bedside. Echocardiogram performed per leftventricular function protocol. Last full echocardiogram [id number]. LEFT VENTRICLE:Normal left ventricular chamber size. Calculated [...] normal distal ICA in accordance with [place] Symptomatic Carotid Endarterectomy Trial (NASCET). Procedure Note [...] witha 50-69% stenosis. us Marquita Lo M.D. [facility] US PROCEDURES Final Result * CARDIOVASCULAR IMPLANTABLE ELECTRONIC DEVICE - NO CHARGE (09/06/2024 7:44 AM CDT) Date Time Interrogation Session [id number] [facility] Implantable Pulse Generator Refrigeration Engineering Teacher Clayton Digby [facility] Implantable Pulse Generator Type Pacemaker [facility] Implantable Pulse Generator Model L321 [facility] Implantable Pulse Generator Serial Number [id number] [facility] Implantable Pulse Generator Implant [...] [facility] Lead Channel Impedance Value 1,205 [facility] Lead Channel Pacing Threshold Amplitude 1.800 [facility] Lead Channel Pacing Threshold Pulse Width 0.4 [facility] Lead Channel Measurements Date and Time [id number] [facility] Lead Channel Setting Pacing Amplitude 2.400 [facility] Lead Channel Setting Pacing Pulse Width 0.4 [facility] Abelino Setting Mode (NBG Code) VVIR [facility] Ventricular chambers paced during BLIND STITCH MACHINE OPERATOR pacing. RV [facility] Abelino Setting Lower Rate Limit 70 [facility] Abelino Setting AT Mode Switch Rate 170 [facility] Abelino Setting Maximum Sensor Rate 110 [facility] Zone Setting Type Category VT [facility] Murj Rate 1 160 [facility] Zone Setting Status Monitor [facility] Murj Zone ID 1 [facility] Implantable Lead Refrigeration Engineering Teacher Guidant [facility] Implantable Lead Model 4086 Flextend [facility] Implantable Lead Location Right Atrium [facility] Implantable Lead Connection Status Connected [facility] Implantable Lead Serial Number [id number] [facility] Implantable Lead Implant Date 20041129 [facility] Implantable Lead Special Function Lead length: 45.00 cm [facility] Implantable Lead Refrigeration Engineering Teacher Guidant [facility] Implantable Lead Model 4087 Flextend [facility] Implantable Lead Location Right Ventricle [facility] Implantable Lead Connection Status Connected [facility] Implantable Lead Serial Number [id number] [facility] Implantable Lead Implant Date 20041129 [facility] Implantable Lead Special Function Lead length: 52.00 cm [facility] Anatomical Region Laterality Modality Other 09/10/2024 12:2 1 AM CDT Impressions 09/10/2024 12:21 AM CDT Encounter Impression: Title: Hospital Check * Device check performed by Dr. Sanchez in ED. * Patient was seen in hospital * Reason: syncope * Episodes: 3 VHR episodes since last remote. * Presenting rhythm: SENIOR LINUX UNIX ADMINISTRATOR @ 70 bpm * Underlying rhythm: SENIOR LINUX UNIX ADMINISTRATOR @ 30 bpm * Heart Rate Histograms [...] No prodromal episodes. He was taken to [place] ER where he had some NSVT at [...] VHRepisodes since last remote. * Presenting rhythm: SENIOR LINUX UNIX ADMINISTRATOR @ 70 bpm * Underlying rhythm: SENIOR LINUX UNIX ADMINISTRATOR@ 30 bpm * Heart Rate Histograms reviewed [...] No prodromal episodes. He was taken to [place] ER where hehad some NSVT at 1030 [...] BLOOD ADD-ON Final Result Performing Organization Address [facility] Co de Phone Number [facility] [address] [place] [address], [facility] DTL [facility] [address] [place] [address] * (ABNORMAL) D-Dimer (09/06/2024 5:06 AM CDT) D-Dimer, P 897(H) <=500 ng/mL FEU 09/06/2024 8:55 AM CDT [facility] Comment: D-dimer concentrations increase with age. For [...] BLOOD ADD-ON Final Result Performing Organization Address [facility] Co de Phone Number [facility] [address] [place] [address], [facility] [address] [place] [address] * (ABNORMAL) Prothrombin Time (PT) (09/06/2024 5:06 AM CDT) Prothrombin Time, P 33.9(H) 9.4 - 12.5 sec 09/06/2024 5:17 AM CDT [facility] INR 3.1 0.9 - 1.1 09/06/2024 5:17 AM CDT [facility] Comment: ----ADDITIONAL INFORMATION---- Standard intensity warfarin therapeutic range: 2.0 to 3.0 High intensity warfarin therapeutic range: 2.5 to 3.5 Blood (Blood, Venous) 09/06/2024 5:06 AM CDT 09/06/2024 5:11 AM CDT Khoi Zacarias APRN, C.N.P. LAB BLOOD ADD-ON Final Result Performing Organization Address City/[facility]/ZIP Co de Phone Number [facility] [address] [place] [address], [facility] [address] [place] [address] * (ABNORMAL) Troponin T, 2 Hour with [...] TROPONI N Final Result Performing Organization Address City/[facility]/ZIP Co de Phone Number [facility] [address] [place] [address], [facility] [address] [place] [address] * (ABNORMAL) Troponin T, Baseline with 2 Hour/6 Hour Reflex Biomarker Panel (09/06/2024 2:58 AM CDT) Troponin T, Baseline, 5th gen 46(H) <=15 ng/L 09/06/2024 3:32 AM CDT [facility] Blood (Blood, Venous) 09/06/2024 2:58 AM CDT 09/06/2024 3:02 AM CDT us Justice Boykin APRNNArmandoP. LAB BLOOD TROPONI N Final Result [facility] [address] [place] [address], [facility] STMA [facility] [address] [place] [address] * (ABNORMAL) CBC with Differential, Blood (09/06/2024 2:58 AM CDT) Pathologist [facility] Hemoglobin 9.9(L) 13.2 - 16.6 [...] BLOOD ADD-ON Final Result Performing Organization Address [facility] de Phone Number [facility] [address] [place] [address], [facility] STMA [facility] [address] [place] [address] [facility] [address] [place] [address] * Glucose, POCT (09/06/2024 2:58 AM CDT) Glucose, POCT, B 108 70 - 140 mg/dL 09/06/2024 3:35 AM CDT P[facility] Site Venstick 09/06/2024 3:35 AM CDT [facility] Blood (Blood, Capillary) 09/06/2024 2:58 AM CDT 09/06/2024 2:58 AM CDT Khoi Zacarias APRN, C.N.P. LAB POCT ORDERABL ES-MANUAL Final Result Performing Organization Address [facility] de Phone Number POC [facility] [address] [place] [address], [facility] PCLX [facility] [address] [place] [address] * (ABNORMAL) Basic Metabolic Panel (09/06/2024 2:58 [...] APRN, C.N.P. LAB BLOOD ADD-[place] [address], [place] [address] * ECG 12 Lead (09/06/2024 2:47 AM CDT) Ventricular Rate ECG/Min 70 BPM MUSE QRSD Interval 168 ms MUSE QT Interval 476 ms MUSE QTC Interval 514 ms MUSE R [place] -70 degrees MUSE T Wave [place] 106 degrees MUSE 09/06/2024 2:47 AM CDT [...] or split tablet. May crush using the Revert system. Given 09/07/2024 7:29 PM CDT 10 [...] R.N.)2017 (Given - Provider: Marilou Calix R.N.) 0861 (Given - Provider: Clifton Lopes M.S., R.N., [facility] furosemide injection 40 mg (Lasix) [...] (Given - Provider: Clifton Lopes M.S., R.N., [facility] nitroglycerin SL tablet 0.4-0.8 mg [...] (Given - Provider: Clifton Lopes M.S., R.N., [facility]) sodium chloride (PF) 0.9 % [...] 1355 (Given - Provider: Nidia Marin C.N.M.TArmando, [facility]) torsemide tablet 40 mg (Demadex) 40 mg, [...] Orders 1354 (Given - Provider: Andrew Greenwood, [facility]) PRN Medication Order 09/08/2024 09/09/2024 09/10/2024 acetaminophen [...] Radiant Medication Guidelines 1548 (Given - Provider: Cahterine Oquendo, R.N.) sodium chloride 0.9 % injection [...] injection documented in this encounter Care Teams Color Shop Helper Relationship Specialty Start Date End Date Elsewhere, Pcp PCP - General Family Medicine 11/27/20 Mary Ann Sol [address] [place] [address] Laundrette Owner Physician 01/17/19 documented as of this encounter
--- OUTSIDE RECORDS SUMMARY | 2024-09-13 05:33 | XMS_ITS | Encounter Summary ---
Author Organization [facility] Address [address] [place] [address] Care Team Providers Care Set Up Mechanic Name Role Phone Elsewhere, Pcp Primary Care Provider Unavailabl e Encounter Details Date Type Department Care Team (Latest Contact Info) Description 08/04/2024 11:08 AM CDT - 08/04/2024 11:59 PM CDT Hospital Encounter Department of Cardiovascular Diseases in [place], [place] [address] [place] [address] Shad Whittaker M.D. [address] [place] [address] Discharge Disposition: Home or Self Care Social History Tobacco Use Types Packs/Day Years Used Date Smoking Tobacco: Former Cigarettes 1 50 0 05/04/1954 - 05/04/2004 Smokeless Tobacco: Never Alcohol Use Standard Drinks/Week Comments Yes 5 (1 standard drink = 0.6 oz pur e alcohol) [facility] Utilities Answer Date Recorded In the past 12 months has e [employer] gas, oil, or water [employer] threatened to shut off services in your [...] often do you attend chur ch or cheondoism services? More than 4 times per year 05/08/2022 Do you belong to any clubs o r organizations such as yazidi groups, unions, fraternal or athletic groups, or [...] your living situation today? I have a [facility] place to live 04/14/2024 Education Answer Date Recorded What is the highest level of school you have completed or the highest degree you have received? Bachelor's degree (e.g., BA, AB, BS) 01/13/2019 Sex and Gender Information Value Date Recorded Sex Assigned at Male 08/22/2018 2:26 PM CDT Legal Sex Male 11:09 AM POLITICAL ADVISOR Gender Identity Male 08/22/2018 2:26 PM CDT [...] CDT Appointment Department of Radiology, [facility] in [place], [place] [address] [place] [phone] Marquita Lo M.D. [address] [place] [phone] 09/14/2024 9:10 AM CDT Appointment Department of Laboratory Medicine and Pathology, [facility] in [place], [place] [address] [place] [phone] Marquita Lo M.D. [address] [place] [phone] 09/14/2024 9:30 AM CDT Appointment Department of Cardiac Rehabilitation in [place], [place] [address] [place] [phone] Marquita Lo M.D. [address] [place] [phone] 09/14/2024 2:00 PM CDT Comprehensive Visit Department of Cardiovascular Medicine in [place], [place] [address] [place] [phone] Tom Plascencia M.D. [address] [place] [phone] documented as of this encounter Procedures Procedure Name Priority Date/Time Associated Diagnosis Comments INTERFACED REMOTE DEVICE CHECK Routine 08/04/2024 11:08 AM CDT documented in this encounter Results * CAR CARDIAC DEVICE INTERROGATION (08/04/2024 11:08 AM CDT) Date Time Interrogation Session [id number] [facility] Type Interrogation Session Remote Scheduled [facility] Implantable Pulse Generator Supply Chain Tech [employer] [facility] Implantable Pulse Generator Type Pacemaker [facility] Implantable Pulse Generator Model L321 [facility] Implantable Pulse Generator Serial Number [id number] [facility] Implantable Pulse Generator Implant Date 20160103 [facility] Battery Remaining Percentage 81.00 % [facility] Battery Remaining Longevity 84.0 mo [facility] Battery Status Beginning of Service [facility] Abelino Statistic RA Percent Paced 0.00 [facility] Abelino Statistic RV Percent Paced 99.00 [facility] Lead Channel Setting Sensing Sensitivity 0.15 [facility] Lead Channel Measurements Date and Time 20240803 [facility] Lead Channel Sensing Intrinsic Amplitude 4.500 [facility] Lead Channel Setting Sensing Sensitivity 4.00 [facility] Lead Channel Impedance Value 1,240 [facility] Lead Channel Pacing Threshold Amplitude 2.000 [facility] Lead Channel Pacing Threshold Pulse Width 0.4 [facility] Lead Channel Measurements Date and Time [id number] [facility] Lead Channel Setting Pacing Amplitude 2.400 [facility] Lead Channel Setting Pacing Pulse Width 0.4 [facility] Abelino Setting Mode (NBG Code) VVIR [facility] Abelino Setting Lower Rate Limit 70 [facility] Abelino Setting AT Mode Switch Rate 170 [facility] Abelino Setting Maximum Sensor Rate 110 [facility] Lead Channel Setting Sensing Polarity Bipolar [facility] Lead Channel Setting Pacing Polarity Bipolar [facility] Lead Channel Pacing Threshold Polarity Bipolar [facility] Zone Setting Type Category VT [facility] Murj Rate 1 160 [facility] Zone Setting Status Monitor [facility] Murj Zone ID 1 [facility] Implantable Lead Supply Chain Tech Guidant [facility] Implantable Lead Model 4086 Flextend [facility] Implantable Lead Location Right Atrium [facility] Implantable Lead Connection Status Connected [facility] Implantable Lead Serial Number [id number] [facility] Implantable Lead Implant Date [id number] [facility] Implantable Lead Special Function Lead length: 45.00 cm [facility] Implantable Lead Supply Chain Tech Guidant [facility] Implantable Lead Model 4087 Flextend [facility] Implantable Lead Location Right Ventricle [facility] Implantable Lead Connection Status Connected [facility] Implantable Lead Serial Number [id number] [facility] Implantable Lead Implant Date [id number] [facility] Implantable Lead Special Function Lead length: 52.00 cm [facility] Anatomical Region Laterality Modality Other [...] on filedocumented in this encounter Care Teams Set Up Mechanic Relationship Specialty Start Date End Date Elsewhere, Pcp PCP - General Family Medicine 11/27/20 Mary Ann Sol [address] [place] [address] Is Architect Physician 01/17/19 documented as of this encounter
--- OUTSIDE RECORDS SUMMARY | 2024-09-13 05:34 | XMS_ITS | Clinical Summary ---
Author Organization [facility] Address [address] [place] [address] Care Team Providers Care Continuous Process Coffee Roaster Name Role Phone Elsewhere, Pcp Primary Care Provider Unavailabl e Source Comments Patient records contain information from all sites at [facility]. For routine questions regarding patient records, call [phone] during business hours, M-F 8:00 AM - 5:00 PM Central Time. 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 09/08/2024 Clinical Communication [facility] [address] [place] [phone] Deanne Kilpatrick M.D., M.S. 09/08/2024 Clinical Communication [facility] [address] [place] [phone] Deanne Kilpatrick M.D., M.S. 09/07/2024 4:40 PM CDT - 09/07/2024 5:55 PM CDT Surgery Division of Cardiovascular Diseases in [place], [place] [address] [place] [phone] Mynor Perez M.D. HEART CATHETERIZATION - RIGHT 09/06/2024 2:35 PM CDT Ancillary Procedure Department of Nursing 09/06/2024 2:30 PM CDT Ancillary Procedure Department of Nursing 09/06/2024 2:25 PM CDT Ancillary Procedure Department of Nursing 09/06/2024 2:44 AM CDT - 09/10/2024 2:13 PM CDT Hospital Encounter [facility], Tenth Floor [address] [place] [phone] Khoi Zacarias APRN, C.N.P. Lerman, Amir, M.D. Bell, Malcolm R, M.D. 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 Discharge Disposition: Home or Self Care 07/08/2024 7:50 AM LUSTER REPAIRER - 07/08/2024 11:59 PM LUSTER REPAIRER Hospital Encounter Department of Cardiovascular Diseases in [place], [place] [address] [place] [phone] Melba Luna M.B.B.S. Discharge Disposition: Home or [...] drink = 0.6 oz pur e alcohol) [facility] Utilities Answer Date Recorded In the [...] any clubs o r organizations such as hoahaoism groups, unions, fraternal or athletic groups, or [...] care, and heating? Not very hard 05/08/2022 [facility] - Occupational Stress [...] PM CDT Legal Sex Male 11:09 AM LUSTER REPAIRER Gender Identity Male 08/22/2018 2:26 PM CDT [...] CDT Appointment Department of Radiology, [facility] in [place], [place] [address] [place] [phone] Marquita Lo M.D. [address] [place] [phone] 09/14/2024 9:10 AM CDT Appointment Department of Laboratory Medicine and Pathology, [facility] in [place], [place] [address] [place] [phone] Marquita Lo M.D. [address] [place] [phone] 09/14/2024 9:30 AM CDT Appointment Department of Cardiac Rehabilitation in [place], [place] [address] [place] [phone] Marquita Lo M.D. [address] [place] [phone] 09/14/2024 2:00 PM CDT Comprehensive Visit Department of Cardiovascular Medicine in [place], [place] [address] [place] [address] [place] [phone] Tom Plascencia M.D. [address] [place] [phone] Health Maintenance Due Date Last Done Comments [...] this topic Medical Devices Implanted Type Area Cashier And Waiter/Waitress Device Identifier Shelf Expiration Date Model / Serial / Lot Lead Guidant Baron [id number] Implanted:11/02 (Quantity not on file) Cardiac Lead Other/Legacy - See Implant Description Guidant / [id number] / Description:LEAD Guidant Cor p [id number] Flextend Lead Guidant Baron [id number] Implanted:11/02 (Quantity not on file) Cardiac Lead Other/Legacy - See Implant Description Guidant / [id number] / Description:LEAD Guidant Cor p [id number] Flextend Valve Aortic Carbomedics 25mm - Chappell [id number] Implanted:Qty: 1 on 09/10/2007 Cardiac Valve Prosthesis Aorta Carbomedics Description:Device Manufactu rer - Carbomedics. Body Location - Other. Aortic. Device Status Text - [id number]. Ring Annuloflex Carbomedics 28mm - Chappell [id number] Implanted:Qty: 1 on 11/01/2014 Cardiac Valve Prosthesis Other/Legacy - See Implant Description Carbomedics Description:Device Manufactu rer - Carbomedics. Body Location - Other. Tricuspid. Device Status Text - [id number]. Jud Eddie Fuzzy 6 X 1 - Chappell [id number] Implanted:Qty: 1 on 09/10/2007 Mesh or Patch Impra Description:Device Manufactu rer - Impra. Device Status Text - [id number]. Jud Eddie Fuzzy 1 X 1 - Chappell 1667 Implanted:Qty: 2 on 09/10/2007 Mesh or Patch SpearFysh Description:Device Manufactu rer - Liveroof Chinaoyal. Device Status Text - [id number]. [facility] Data - [id number]. Ocular Lens Ocular Lens Bilateral: Eye Pacemaker [employer] [id number] Implanted:0 05/2015 (Quantity not on file) Pacemaker Other/Legacy - See Implant Description [employer] / [id number] / Description:Pacemaker [employer] [id number] ACCOLADE EL Hemashield Woven-Str 28 X 30 - Chappell [id number] Implanted:Qty: 1 on 09/10/2007 Vascular Graft Aorta Other/Legacy - See Implant Description Description:Device Manufactu rer - Meadox. Body Location - Other. Aortic. Device Status Text - [id number]. Explanted Type Area Cashier And Waiter/Waitress Device Identifier Shelf Expiration Date Model / Serial / Lot Pacemaker Guidant Baron [id number] Implanted:11/29 (Quantity not on file) Explanted:01/02 (Quantity not on file) Pacemaker Chest Guidant / [id number] / Description:Pacemaker Guidan t Baron [id number] Procedures Procedure Name Priority [...] REMOTE DEVICE CHECK Routine 07/08/2024 7:50 AM LUSTER REPAIRER from Last 3 Months Results * (ABNORMAL) [...] Lo M.D. LAB BLOOD ADD-ON Final Result [facility] [address] [place] [address], [place] DTL [facility] [address] [place] [address] * (ABNORMAL) CBC without Differential (09/10/2024 5:00 [...] López M.D. LAB BLOOD ADD-ON Final Result [facility] [address] [place] [address], [facility] [address] [place] [address] * (ABNORMAL) Magnesium (09/10/2024 5:00 AM CDT) Only the most recent of2 resultswithin the time period is included. Magnesium, S 2.4(H) 1.7 - 2.3 mg/dL 09/10/2024 6:46 AM CDT DTL Blood (Blood, Venous) 09/10/2024 5:00 AM CDT 09/10/2024 6:15 AM CDT Raz López M.D. LAB BLOOD ADD-ON Final Result [facility] [address] [place] [address], [facility] DTL [facility] [address] [place] [address] * (ABNORMAL) Basic Metabolic Panel (09/10/2024 5:00 AM CDT) Only the most recent of3 resultswithin the time period is included. [facility] Potassium, S 4.7 3.6 - 5.2 [...] López M.D. LAB BLOOD ADD-ON Final Result [facility] [address] [place] [address], [place] DTL [facility] [address] [place] [address] * CT Cardiac Angiogram with Coronary Arteries [...] 5: 100%, Occluded N: Non-diagnostic study Plaque [place]: P1: Mild (CACS1-100/SIS1-2/1-2 vessels mild plaque) P2: Moderate ([id number]/SIS3-4/1-2 vessels moderate; 3 vessels mild plaque) P3: Severe (CXCE572-769/SIS5-7/3 vessels moderate; 1 vessel severe plaque) P4: [...] Similar bilateral noncalcified solid pulmonary nodules, including bobplusx67 mm greatest dimension nodule in the peripheral [...] 5: 100%, Occluded N: Non-diagnostic study Plaque [place]: P1: Mild (CACS1-100/SIS1-2/1-2 vessels mild plaque) P2: Moderate ([id number]/SIS3-4/1-2 vessels moderate; 3 vessels mildplaque) P3: Severe (YKTF497-886/SIS5-7/3 vessels moderate; 1 vessel severeplaque) P4: Extensive [...] increased in size since04/19/2024. Raz López M.D. [facility] PROCEDURES Final Result * (ABNORMAL) Renal Function Panel (09/09/2024 9:42 AM CDT) Pathologist [facility] Potassium, S 4.8 3.6 - 5.2 mmol/L [...] López M.D. LAB [place] [address], [facility] [address] [place] [address] * ECG 12 Lead (09/09/2024 7:54 AM CDT) Only the most recent of3 resultswithin the time period is included. Ventricular Rate ECG/Min 70 BPM MUSE QRSD Interval 170 ms MUSE QT Interval 490 ms MUSE QTC Interval 529 ms MUSE R [place] -71 degrees MUSE T Wave [place] 104 degrees MUSE 09/09/2024 7:54 AM CDT [...] CDT 09/07/2024 5:36 AM CDT Courtney Faulkner APRN.NEverette., M.S.N. LAB BLOOD ADD-ON Final Result [facility] [address] [place] [address], [facility] [address] [place] [address] * Iron and Total Iron-Binding Capacity (09/07/2024 [...] BLOOD ADD-ON Final Result Performing Organization Address [facility]/[place] [address] * (ABNORMAL) S-TSH (Thyroid-Stimulating Hormone - Sensitive) (09/07/2024 4:40 AM CDT) Pathologist [facility] TSH, Sensitive 5.1(H) 0.3 - 4.2 mIU/L 09/07/2024 6:00 AM CDT DTL Blood (Blood, Venous) 09/07/2024 4:40 AM CDT 09/07/2024 5:36 AM CDT Myrtle Alejandro APRN, C.N.P., M.S.N. LAB BLOOD ADD-ON Final Result Performing Organization Address [facility] Co de Phone Number [facility] [address] [place] [address], [place] [address] * (ABNORMAL) Comprehensive Metabolic Panel (09/07/2024 4:40 AM CDT) Pathologist [facility] Potassium, S 4.7 3.6 - 5.2 mmol/L [...] C.N.P., M.S.N. LAB BLOOD ADD-ON Final Result [facility] [address] [place] [address], [facility] [address] [place] [address] * (ABNORMAL) CBC with Differential, Blood (09/07/2024 [...] C.N.P., M.S.N. LAB BLOOD ADD-ON Final Result [facility] [address] [place] [address], [facility] DTL [facility] [address] [place] [address] DHPM [facility] [address] [place] [address] * (ABNORMAL) Hemoglobin A1c (09/07/2024 4:39 AM [...] BLOOD ADD-ON Final Result Performing Organization Address [facility]/ZIP Co de Phone Number [address] [place] [address] * (ABNORMAL) T3 (Triiodothyronine), Total (09/07/2024 4:35 AM CDT) T3 (Triiodothyroni ne), Total, S 60(L) 80 - 200 ng/dL 09/07/2024 8:48 AM CDT DT Blood 09/07/2024 4:35 AM CDT 09/07/2024 8:13 AM CDT Deanne Kilpatrick M.D., M.S. LAB BLOOD ADD-ON F inal Result Performing Organization Address City/[facility]/ZIP Co de Phone Number [address] [place] [address] * T4 (Thyroxine), Free (09/07/2024 4:35 AM CDT) T4 (Thyroxine), Free, S 1.1 0.9 - 1.7 ng/dL 09/07/2024 8:48 AM CDT DTL Blood (Blood, Venous) 09/07/2024 4:35 AM CDT 09/07/2024 8:13 AM CDT Marquita Lo M.D. LAB BLOOD ADD-ON Final Result [facility] [address] [place] [address], [facility] DTL [facility] [address] [place] [address] * (TTE) 2D ECHO DOPPLER COLOR (09/06/2024 3:40 PM CDT) Pathologist [facility] Ejection Fraction 63 MC CV EIMS LV [...] per leftventricular function protocol. Last full echocardiogram /19/2024. LEFT VENTRICLE:Normal left ventricular chamber size. Calculated [...] normal distal ICA in accordance with [place] Symptomatic Carotid Endarterectomy Trial (NASCET). Procedure Note [...] witha 50-69% stenosis. us Marquita Lo M.D. [facility] US PROCEDURES Final Result * CARDIOVASCULAR IMPLANTABLE ELECTRONIC DEVICE - NO CHARGE (09/06/2024 7:44 AM CDT) Date Time Interrogation Session [id number] [facility] Implantable Pulse Generator Cashier And Waiter/Waitress [employer] [facility] Implantable Pulse Generator Type Pacemaker [facility] Implantable Pulse Generator Model L321 [facility] Implantable Pulse Generator Serial Number [id number] [facility] Implantable Pulse Generator Implant Date 20160103 [facility] Abelino Statistic RA Percent Paced 0.00 [facility] Abelino Statistic RV Percent Paced 99.00 [facility] Lead Channel Setting Sensing Sensitivity 0.15 [facility] Lead Channel Measurements Date and Time 20240803 [facility] Lead Channel Setting Sensing Sensitivity 4.00 [facility] Lead Channel Impedance Value 1,205 [facility] Lead Channel Pacing Threshold Amplitude 1.800 [facility] Lead Channel Pacing Threshold Pulse Width 0.4 [facility] Lead Channel Measurements Date and Time 20240803 [facility] Lead Channel Setting Pacing Amplitude 2.400 [facility] Lead Channel Setting Pacing Pulse Width 0.4 [facility] Abelino Setting Mode (NBG Code) VVIR [facility] Ventricular chambers paced during MASH PROCESSING OPERATOR pacing. RV [facility] Abelino Setting Lower Rate Limit 70 [facility] Abelino Setting AT Mode Switch Rate 170 [facility] Abelino Setting Maximum Sensor Rate 110 [facility] Zone Setting Type Category VT [facility] Murj Rate 1 160 [facility] Zone Setting Status Monitor [facility] Murj Zone ID 1 [facility] Implantable Lead Cashier And Waiter/Waitress Guidant [facility] Implantable Lead Model 4086 Flextend [facility] Implantable Lead Location Right Atrium [facility] Implantable Lead Connection Status Connected [facility] Implantable Lead Serial Number [id number] [facility] Implantable Lead Implant Date 20041129 [facility] Implantable Lead Special Function Lead length: 45.00 cm [facility] Implantable Lead Cashier And Waiter/Waitress Guidant [facility] Implantable Lead Model 4087 Flextend [facility] Implantable Lead Location Right Ventricle [facility] Implantable Lead Connection Status Connected [facility] Implantable Lead Serial Number [id number] [facility] Implantable Lead Implant Date [...] episodes since last remote. * Presenting rhythm: TOP CUTTER @ 70 bpm * Underlying rhythm: TOP CUTTER @ 30 bpm * Heart Rate Histograms [...] No prodromal episodes. He was taken to [facility] where he had some NSVT at [...] VHRepisodes since last remote. * Presenting rhythm: TOP CUTTER @ 70 bpm * Underlying rhythm: TOP CUTTER@ 30 bpm * Heart Rate Histograms reviewed [...] No prodromal episodes. He was taken to [facility] where hehad some NSVT at 1030 [...] BLOOD ADD-ON Final Result Performing Organization Address [facility] Co de Phone Number [facility] [address] [place] [address] * (ABNORMAL) Troponin T, 2 Hour with 6 Hour Reflex, 5th Gen (09/06/2024 5:06 AM CDT) Pathologist [facility] Troponin T, 2 hr, 5th gen 48(H) <=15 ng/L 09/06/2024 5:27 AM CDT [facility] 2H Delta 2 ng/L 09/06/2024 5:27 AM CDT [facility] Comment:6 hour collection no t indicated. 2H Delta Interp Not Changing 09/06/2024 5:27 AM CDT [facility] Blood 09/06/2024 5:06 AM CDT 09/06/2024 5:10 AM CDT Khoi Zacarias APRN, C.N.P. LAB BLOOD TROPONI N Final Result Performing Organization Address City/[facility]/ZIP Co de Phone Number [address] [place] [address] * (ABNORMAL) D-Dimer (09/06/2024 5:06 AM CDT) D-Dimer, P 897(H) <=500 ng/mL FEU 09/06/2024 8:55 AM CDT [facility] Comment: D-dimer concentrations increase with age. [...] BLOOD ADD-ON Final Result Performing Organization Address [facility]/ZIP Co de Phone Number [facility] [address] [place] [address] * (ABNORMAL) Troponin T, Baseline with 2 Hour/6 Hour Reflex Biomarker Panel (09/06/2024 2:58 AM CDT) Pathologist [facility] Troponin T, Baseline, 5th gen 46(H) <=15 ng/L 09/06/2024 3:32 AM CDT [facility] Blood (Blood, Venous) 09/06/2024 2:58 AM CDT 09/06/2024 3:02 AM CDT Khoi Zacarias APRN, C.N.P. LAB BLOOD TROPONI N Final Result Performing Organization Address [facility]/ZIP Co de Phone Number [facility] [address] [place] [address], [place] [address] * Glucose, POCT (09/06/2024 2:58 AM CDT) Glucose, POCT, B 108 70 - 140 mg/dL 09/06/2024 3:35 AM CDT [facility] Site Venstick 09/06/2024 3:35 AM CDT [facility] Blood (Blood, Capillary) 09/06/2024 2:58 AM CDT 09/06/2024 2:58 AM CDT Khoi Zacarias APRN, C.N.P. LAB POCT ORDERABL ES-MANUAL Final Result Performing Organization Address [facility]/ZIP Co de Phone Number POC [facility] [address] [place] [address], [facility] PCLX [facility] POC [address] [place] [address] * XR chest 2V-Outside Chest Xray (09/05/2024 9:00 PM CDT) 09/05/2024 8:56 PM CDT Narrative [facility] - 09/06/2024 12:17 AM CDT This order has been created and auto-finalized to support the import of outside images. If available, original interpretation can be found on the Media Tab in Chart Review, in Document Viewer, as an image in InfinityView or as an Addendum. If a re-interpretation or overread is required please follow defined workflow. Provider Not In System IMG DIAGNOSTIC IMAGING MI OCEDURES Final Result Performing Organization Address City/[facility]/ZIP Co de Phone Number [facility] NA * CT HEAD/BRAIN WO CON-Outside CT Neuro (09/05/2024 8:45 PM CDT) 09/05/2024 8:4 1 PM CDT Narrative [facility] - 09/06/2024 12:21 AM CDT This order [...] period is included. Date Time Interrogation Session [id number] [facility] Type Interrogation Session Remote Scheduled [facility] Implantable Pulse Generator Cashier And Waiter/Waitress [employer] LAB SYSTEM Implantable Pulse Generator Type Pacemaker [facility] Implantable Pulse Generator Model L321 [facility] Implantable Pulse Generator Serial Number [id number] [facility] Implantable Pulse Generator Implant Date 20160103 [facility] Battery Remaining Percentage 81.00 % [facility] Battery Remaining Longevity 84.0 mo [facility] Battery Status Beginning of Service [facility] Abelino Statistic RA Percent Paced 0.00 [facility] Abelino Statistic RV Percent Paced 99.00 [facility] Lead Channel Setting Sensing Sensitivity 0.15 [facility] Lead Channel Measurements Date and Time 20240803 [facility] Lead Channel Sensing Intrinsic Amplitude 4.500 [facility] Lead Channel Setting Sensing Sensitivity 4.00 [facility] Lead Channel Impedance Value 1,240 [facility] Lead Channel Pacing Threshold Amplitude 2.000 [facility] Lead Channel Pacing Threshold Pulse Width 0.4 [facility] Lead Channel Measurements Date and Time 20240803 [facility] Lead Channel Setting Pacing Amplitude 2.400 [facility] Lead Channel Setting Pacing Pulse Width 0.4 [facility] Abelino Setting Mode (NBG Code) VVIR [facility] Abelino Setting Lower Rate Limit 70 [facility] Abelino Setting AT Mode Switch Rate 170 [facility] Abelino Setting Maximum Sensor Rate 110 [facility] Lead Channel Setting Sensing Polarity Bipolar [facility] Lead Channel Setting Pacing Polarity Bipolar [facility] Lead Channel Pacing Threshold Polarity Bipolar [facility] Zone Setting Type Category VT [facility] Murj Rate 1 160 [facility] Zone Setting Status Monitor [facility] Murj Zone ID 1 [facility] Implantable Lead Cashier And Waiter/Waitress [employer] [facility] Implantable Lead Model 4086 Flextend [facility] Implantable Lead Location Right Atrium [facility] Implantable Lead Connection Status Connected [facility] Implantable Lead Serial Number [id number] [facility] Implantable Lead Implant Date 20041129 [facility] Implantable Lead Special Function Lead length: 45.00 cm [facility] Implantable Lead Cashier And Waiter/Waitress Guidant [facility] Implantable Lead Model 4087 Flextend [facility] Implantable Lead Location Right Ventricle [facility] Implantable Lead Connection Status Connected [facility] Implantable Lead Serial Number [id number] [facility] Implantable Lead Implant Date [...] Final Result from Last 3 Months [address] [place] [address] MEDICARE MEDIC Advance Directives For more information, please contact: [phone] Documents on File Type Date Recorded Patient Belt Notcher Expl anation Advance Directives 11/01/2014 12:00 AM Lega cy document. See document viewer. * Full Code (Latest Code Status on File) Date Activated Date Inactivated Comments 09/06/2024 5:50 AM 09/10/2024 4:13 PM Question Answer Comments Full Code: Discussed * Full Code Date Activated Date Inactivated Comments 11/25/2020 4:47 AM 11/29/2020 6:51 PM Question Answer Comments Full Code: Discussed Care Teams Continuous Process Coffee Roaster Relationship Specialty Start Date End Date Elsewhere, Pcp PCP - General Family Medicine 11/27/20 Mary Ann Sol [address] [place] [address] Dispatcher Chief Oil Physician 01/17/19
[2024-09-13 07:41] LABS: Hemoglobin* 9.2 gm/dL (13.5-17.5)
[2024-09-13] MEDS: MORPHINE 2 MG/ML inj IVP (08:49)
[2024-09-13] MEDS: PHYTONADIONE (VIT K1) 5 MG in 0.9 % SODIUM CHLORIDE 50 ml 50 ML 100 MG IVPB (09:24)
--- NOTE | 2024-09-13 11:20 | ED.NURSE ---
Patient transferred to [facility] via [facility]. RN to RN report called. Patient stable at time of transfer.
== END 2024-09-13 11:22 | disposition short-term general hospital (02) ==
PROVIDERS: Emergency Provider Family Medicine; PCP Family Medicine
DX: S30.1XXA Contusion of abdominal wall, initial encounter (principal)
CPT/HCPCS: 36415; 74177; 80048; 81001; 82565; 85018; 85025; 85610; 86140; 96365; 96375; 96376; 99284; J2270; J3430; J7030; Q9967

== ENCOUNTER 2024-09-13 11:10 | Outpatient (CLI) | payer MEDICARE, OTHER, SELFPAY | END 2024-09-13 11:11 | disposition home or self-care (01) | LOC: AMB 09-14 09:33 | PROVIDERS: PCP Family Medicine; Visit Provider Family Medicine | DX: R10.32 Left lower quadrant pain (principal); S30.1XXA Contusion of abdominal wall, initial encounter | CPT/HCPCS: A0425; A0427 ==

== ENCOUNTER 2024-09-30 09:33 | Outpatient (CLI) | payer MEDICARE, OTHER, SELFPAY | END 2024-09-30 09:34 | disposition home or self-care (01) | LOC: NFLDREF 09:35 | PROVIDERS: PCP Family Medicine; Visit Provider Family Medicine | DX: I50.9 Heart failure, unspecified (principal); J18.9 Pneumonia, unspecified organism; N18.32 Chronic kidney disease, stage 3b | CPT/HCPCS: 80048 ==

== ENCOUNTER 2024-11-16 13:25 | Outpatient (CLI) | payer MEDICARE, OTHER, SELFPAY | END 2024-11-16 13:26 | disposition home or self-care (01) | LOC: NFLDREF 11-18 07:19 | PROVIDERS: PCP Family Medicine; Referring Provider Family Medicine; Visit Provider Family Medicine | DX: Z79.01 Long term (current) use of anticoagulants (principal); I27.20 Pulmonary hypertension, unspecified | CPT/HCPCS: 80048 ==

== ENCOUNTER 2025-01-03 14:37 | Outpatient (CLI) | payer MEDICARE, OTHER, SELFPAY | END 2025-01-03 14:38 | disposition home or self-care (01) | PROVIDERS: PCP Family Medicine; Visit Provider Family Medicine | DX: E53.8 Deficiency of other specified B group vitamins (principal); I48.91 Unspecified atrial fibrillation; I10 Essential (primary) hypertension; Z95.0 Presence of cardiac pacemaker; Z79.01 Long term (current) use of anticoagulants; Z79.899 Other long term (current) drug therapy | CPT/HCPCS: 80053; 80061; 82306; 82607 ==

== ENCOUNTER 2025-02-15 11:19 | Outpatient (CLI) | payer MEDICARE, OTHER, SELFPAY | END 2025-02-15 11:20 | disposition home or self-care (01) | LOC: NFLDREF 11:21 | PROVIDERS: PCP Family Medicine; Visit Provider Family Medicine | DX: D64.9 Anemia, unspecified (principal); I50.32 Chronic diastolic (congestive) heart failure; N18.32 Chronic kidney disease, stage 3b | CPT/HCPCS: 80048 ==

== ENCOUNTER 2025-02-18 01:40 | Emergency (ER) | payer MEDICARE, OTHER, SELFPAY ==
--- OUTSIDE RECORDS SUMMARY | 2014-07-10 19:00 | XMS_ITS | Continuity of Care Document ---
Author Organization [facility] Address [address] [place] [address] Phone Care Team Providers Care Drain Layer Name Role Phone Lon Jaime MD Unavailable Unavailabl e Allergies, Adverse Reactions, Alerts Substance Reaction Status Criticality No Known Allergies Active No Inform ation Medications Medication Instructions Dosage Effective Dates (start - stop) Status Comments Enulose 10 gram/15 mL oral solution take 45 milliliter by oral route every day mix with 8 ounces water and drink one hour before appointment. 30 G - Active SERTRALINE HCL (unknown strength) take 1 tablet by oral route every day Not Available - Active JANTOVEN (unknown strength) take 1 tablet by oral route every day Not Available - Active METOPROLOL TARTRATE (unknown strength) take 1 tablet by oral route 2 times every day Not Available - Active COUMADIN (unknown strength) take 1 tablet by oral route every day Not Available - Active PROBIOTIC (unknown strength) Not Available - Active Procedures Procedure Date BREATH HYDROGEN TEST BREATH HYDROGEN TEST OFFICE/OUTPATIENT VISIT, EST DIAGNOSTIC COLONOSCOPY UPPER GI ENDOSCOPY, BIOPSY OFFICE/OUTPATIENT VISIT, NEW Advance Directives Directive Yes / No Effective Date File Name No Information Encounters Encounter Description Practice Location Reason(s) For Visit Diagnoses Date Provider Providers Copied on Encounter [facility], [address] [place], [place], [id number], tel:[phone] Main Office No Information 0 5 Addison reyes. [address] [place], [address], . tel:[phone] Referring Provider: Lon Oh, [address], [place], [address]. tel:[phone] [facility], [address], [id number], [place] tel:[phone] [facility] No Information 5 Addison Jasso er. [address] [place] [address], [address], [place]. [phone] Referring Provider: Lon Oh, [address] [place] [address], [address]. tel:[phone] OFFICE/OUTPA TIENT VISIT, [facility], [address], [id number], [place] tel:[phone] [facility] Abdominal pain (chief complaint) Abdominal bloatingConstipati on, unspecified 5 Addison Jasso er. [address] [place], [facility], [place]. tel:[phone] Referring Provider: Lon Oh, [address] [place] [address], [address]. tel:[phone] [facility], [address] [place], [place], [id number], [place] tel:[phone] [facility] No Information 5 Addison Jasso er. [address] [place], [facility], [place]. tel:[phone] OFFICE/OUTPA TIENT VISIT, [facility], [address], [id number], [place] tel:[phone] [facility] Abdominal pain (chief complaint) Abdominal bloatingAbdominal pain, epigastricDiarrhea Aortic valve disease 5 Addison Jasso er. [address] [place] [address] [place], [address], [place]. tel:[phone] Referring Provider: Lon Oh, [address] [place], [address]. tel:[phone] Family History Family Member Type Diagnosis Age At Onset Problem (finding) Family history of malignant neoplasm of ovary Problem (finding) Family history of Colon polyps Payers Payer name Insurance type Covered democrat ID Authoryosia tiarcadio(s) Medicare [id number] [facility] Plan [place] [id number] Social History Type Description Quantity Date Captured Comments Sex Male Smoking Status No Information Chief Complaint And Reason For Visit No Information Reason For Referral Reason For Referral No Information History Of Present Illness Encounter Date Complaint History Of Prese nt Illness Abdominal pain Onset: gradual. Severity is moderate. Duration is varies. It occurs randomly. The problem is improving. Location is bessie-umbilical. There is no radiation. Context: no pattern noted. Denies aggravating factors. Denies relieving factors. Additional information: EGD/COL and biopsies (-). BM's and pain better since procedure. Abdominal pain Onset: 4 years a go. Severity is moderate-severe. Duration is varies. It occurs randomly. The problem is unchanged. Location is diffuse. There is no radiation. The patient describes it as bloating. Context: no pattern noted. Denies aggravating factors. Denies relieving factors. Additional information: Sx of severe bloating/discomfort that wax and wane. Had (-) CT and mild incrased CRP in testing at home in [place]. Last COL 3 yrs ago. Tried probiotic and gluten free diet. Some alternating BM's. Functional Status Date Functional Assessmen t No Information Instructions Date Instruction Additional Infor mation No Information Assessments Type Assessment Date No Information Patient Care Teams Name Effective Dates (start - stop) Status Members No Information
--- OUTSIDE RECORDS SUMMARY | 2014-07-10 19:00 | XMS_ITS | Continuity of Care Document ---
Author Organization [facility] Address [address] [place] [address] Phone Care Team Providers Care Rejogger Name Role Phone Lon Jaime MD Unavailable [...] Encounter [facility], [address] [place], [place], [id number], tel:[phone] Main Office No Information 0 5 Addison reyes. [address] [place], [address], . tel:[phone] Referring Provider: Lon Oh, [address], [place], [address]. tel:[phone] [facility], [address], [id number], [place] tel:[phone] [facility] No Information 5 Addison Jasso er. [address] [place], [address], [place]. [phone] Referring Provider: Lon Oh, [address] [place] [address], [address]. tel:[phone] OFFICE/OUTPA TIENT VISIT, [facility], [address], [id number], [place] tel:[phone] [facility] Abdominal pain (chief complaint) Abdominal bloatingConstipati on, unspecified 5 Addison Jasso er. [address] [place], [facility], [place]. tel:[phone] Referring Provider: Lon Oh, [address] [place], [address]. tel:[phone] [facility], [address] [place], [place], [id number], [place] tel:[phone] [facility] No Information 5 Addison Jasso er. [address] [place], [facility], [place]. tel:[phone] OFFICE/OUTPA TIENT VISIT, [facility], [address], [id number], [place] tel:[phone] [facility] Abdominal pain (chief complaint) Abdominal bloatingAbdominal pain, epigastricDiarrhea Aortic valve disease 5 Addison Jasso er. [address] [place] [address] [place], [address], [place]. tel:[phone] Referring Provider: Lon Oh, [address] [place], [address]. tel:[phone] Family History Family Member Type Diagnosis Age At Onset Problem (finding) Family history of malignant neoplasm of ovary Problem (finding) Family history of Colon polyps Payers Payer name Insurance type Covered libertarian ID Authoryosia tiarcadio(s) Medicare [id number] [employer] [facility] Plan CI [id number] Social History Type Description Quantity Date Captured [...] incrased CRP in testing at home in [place]. Last COL 3 yrs ago. Tried probiotic and gluten free diet. Some alternating BM's. Functional Status Date Functional Assessmen t No Information Instructions Date Instruction Additional Infor mation No Information Assessments Type Assessment Date No Information Patient Care Teams Name Effective Dates (start - stop) Status Members No Information
--- OUTSIDE RECORDS SUMMARY | 2025-01-06 14:00 | XMS_ITS | Encounter Summary ---
Author Organization [facility] Address [address] [place] [address] Care Team Providers Care Power Chisel Operator Name Role Phone Elsewhere, Pcp Primary Care Provider Unavailabl e Reason for Referral * Outpatient (Routine) - Authorized Specialty Diagnoses / Procedures Referred By Jesus Manuel melchor Referred To Contact Palliative Medicine Eneida Mendoza APRN, C.NEverette., M.S.N. 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 [address] [place] [address] Phone: tel: fax: [facility] Referral ID Status Reason Start Date Expiration Date Visits Re quested Visits Authorized [id number] Closed 01/03/2025 07/05/2026 1 1 Encounter Details Date Type Department Care Team (Latest Contact Info) Description 01/06/2025 2:00 PM CDT Comprehensive Visit Department of Palliative Care in [place], [place] [address] [place] [address] Eneida Mendoza APRN, C.N.P., M.S.N. [address] [place] [address] Dyspnea On Exertion (Primary Dx); Palliative Care; Adjustment Disorder Mixed Reaction; Constipation; Advanced Care Planning; Fatigue; Insomnia Social History Tobacco Use Types Packs/Day Years Used Date Smoking Tobacco: Former Cigarettes 1 50 0 05/04/1954 - 05/04/2004 Smokeless Tobacco: Never Alcohol Use Standard Drinks/Week Comments Yes 5 (1 standard drink = 0.6 oz pur e alcohol) [facility] Utilities Answer Date Recorded In the past 12 months has e teextee, gas, oil, or water [employer] threatened to shut off services in your home? No 09/21/2024 Humiliation, Afraid, Rape, and Kick questionnair e Answer Date Recorded Within the last year, have y ou been afraid of your partner or ex-partner? No 09/21/2024 Within the last year, have y ou been humiliated or emotionally abused in other ways by your partner or ex-partner? No Within the last year, have y ou been kicked, hit, slapped, or otherwise physically hurt by your partner or ex-partner? No 09/21/2024 Within the last year, have y ou been raped or forced to have any kind of sexual activity by your partner or ex-partner? No 09/21/2024 Hunger Vital Sign Answer Date Recorded Within the past 12 months, y ou worried that your food would run out before you got the money to buy more. Never true 09/22/19 25 Within the past 12 months, t he food you bought just didn't last and you didn't have money to get more. Never true 09/21/2024 PRAPARE - Transportation Answer Date Re corded In the past 12 months, has l ack of transportation kept you from medical appointments or from getting medications? No 09/02 In the past 12 months, has l ack of transportation kept you from meetings, work, or from getting things needed for daily living? No 09/21/2024 Housing Stability Answer Date Recorded What is your living situation today? I have a [facility] [address] to live 09/21/2024 Education Answer Date Recorded What is the highest level of school you have completed or the highest degree you have received? 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 - 01/06/2025 2:00 PM CDT [facility] Outpatient Palliative Care Consult Note The patient verbally consented to an audio recording of their visit to assist with the completion of documentation. Patient: Sam Gross; 84 y.o.male REFERRING SERVICE Cardiology LOCATION [facility] SUBJECTIVE CHIEF COMPLAINT / REASON FOR CONSULT Sam Gross is a 84 y.o. male with a history of pulmonary hypertension, occurring in the setting of valvular heart disease (s/p mechanical AVR, ascending aorta graft, and tricuspid annuloplasty), HFpEF, and atrial fibrillation. Reason for referral includes symptom management, decision making, and providing support to patient/family. HISTORY OF PRESENT ILLNESS History of Present Illness Mr. Sam Gross is an 84 year old male with pulmonary hypertension, occurring in the setting of valvular heart disease (s/p mechanical AVR, ascending aorta graft, and tricuspid annuloplasty), HFpEF, and atrial fibrillation who presents for palliative care consultation. He is accompanied by his , Ayla and [id number] Jordan. Sam has been experiencing frequent episodes of shortness of breath and fainting over the past several months. He follows with cardiology with follow up in February. He reports that during these episodes, he experiences shaking, his legs give out, and he requires assistance to sit and use supplemental oxygen. His oxygen levels have been recorded as low as 60-70%. He has a history of falls, having fallen three times in the last three months, resulting in significant injuries, including a head injury and internal bleeding. He has been hospitalized twice at [facility], once for almost three weeks. He reports that his falls have sometimes occurred after feeling faint and short of breath. He has a pacemaker and experiences episodes where his heart speeds up which can occur with minimal exertion like rolling over in bed. These episodes last two to three minutes and are sometimes accompanied by heavy breathing and shortness of breath. He is participating in cardiac rehab once weekly for the past 3 weeks. He reports a significant loss of ambition and energy over the past three months, with no desire to engage in activities he previously enjoyed. He attributes this to fatigue and physical limitations, such as shortness of breath and neck pain, which prevent him from completing tasks. He has previously enjoyed lawn work and building things, noting that he is physically unable to complete these tasksand therefore has less desire to be active. He has met with his PCP recently who has increased his sertraline and referred him to a therapist which he is open to. His sleep is poor, characterized by restlessness and frequent awakenings without a clear cause. He sometimes naps in the morning after waking early. No anxiety or specific worries affecting his sleep, but notes frequent movement during sleep. He uses oxygen at night and occasionally during the day. He takes prednisone intermittently for gout and neck pain. He also uses Tylenol and topical diclofenac for pain management. He has been prescribed Senna and Miralax for bowel management, which he uses daily. Socially, he finds wing in spending time with his , family, and friends. He has a supportive network, including weekly coffee meetings with old friends. He and his are considering moving to an independent care facility to reduce the burden of home maintenance. 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 He notes that he has had a good life and feels blessed. His greatest worry is about the wellbeing of his Dot if he were to pass, noting that she would be well taken care of by family. He values his independence and humor. The following portions of the patient's history were reviewed and updated as appropriate: Allergies, Current Medications, Medical History, Surgical History, Family History, and Social History Patient's Primary Caregiver: Spouse or Partner. Advance Care Planning Documents Documents notable for: Advance directive from 2015; POLST completed today Palliative Functional Assessment 70%-Reduced ambulation, Unable to do normal job/work with significant evidence of disease, Full self-care, Normal or reduced intake, Full level of consciousness OBJECTIVE PHYSICAL EXAM Constitutional Appearance: Normal appearance. Eyes Conjunctiva/sclera: Conjunctivae normal. Pulmonary Effort: Pulmonary effort is normal. Neurological Mental Status: He is alert. Psychiatric Mood and Affect: Mood normal. Behavior: Behavior normal. Thought Content: Thought content normal. Judgment: Judgment normal. ASSESSMENT / PLAN #1 Dyspnea On Exertion #2 Palliative Care #3 Adjustment Disorder Mixed Reaction #4 Constipation #5 Advanced Care Planning #6 Fatigue #7 Insomnia We introduced the patient and caregiver to role of palliative care in the care of patients with serious illness, namely expertise in pain and non-pain symptom management, psychosocial, and spiritual support for patients and families as well as assistance in broader medical decision making. RECOMMENDATIONS: Assessment & Plan Syncope Dyspnea - Evaluate reversible causes and optimize medical management with the cardiology team - Continue with use of inhalers as prescribed - Continue with cardiac rehab - Encouraged pacing activities and use of gait aids and assistive devices such as a shower chair toconserve/prioritize use of energy. - May trial use of a fan or cool air to minimize sensation of dyspnea and help with relaxation. - Continue with home oxygen as prescribed. Upcoming oximetry scheduled. - If persistent dyspnea despite optimization as outlined above and follow up with cardiology, plan to initiate low dose opioid as needed for dyspnea management in follow up. Fatigue Loss of Ambition Grief - Provided therapeutic listening and validation of feelings of depression/grief. - Reviewed the benefits of daily physical activity with regards to fatigue, mood, and sleep. 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 He has plans to meet with localtherapist - Offered referral to Integrative Medicine and/or Reiki. - PCP recently increased his sertraline. - Encouraged ongoing follow up with PCP for consideration of additional home health services shouldneeds change - Possible that beta blockers are contributing to symptoms Neck Pain - Use topical diclofenac up to four times daily. - Consider lidocaine with menthol for muscle spasm. - Upcoming spine clinic appointment for further evaluation. Sleep Disturbance Poor sleep quality with frequent awakenings, possibly linked to prednisone use. - Encourage good sleep hygiene. - Counseled on risks of prednisone including potential that it is causing insomnia. He will monitorand follow up with prescribing provider Constipation - Can use Senokot (Senna-S) 1-2 tablets 1-2 times daily - Continue polyethylene glycol (MiraLAX) one capful (17 gms) in 8 ounces of water or juice daily - Goal is to have a soft, moderately sized bowel movement every 1-2 days. - If you have issues with loose or frequent stools or constipation dose not resolve, contact the palliative care team for further guidance. Advance Care Planning Mr. Sam Gross is an 84 year old male with pulmonary hypertension, occurring in the setting of valvular heart disease (s/p mechanical AVR, ascending aorta graft, and tricuspid annuloplasty), HFpEF, and atrial fibrillation who presents for palliative care consultation. He is accompanied by his , Ayla and [id number]-[id number] Joradn. My Ginny shares understanding that his heart has been performing poorly for several years and recognizes risk of an acute cardiac event. He notes that he has had a good life and feels blessed. His greatest worry is about the wellbeing of his Ayla if he were to pass, noting that she would be well taken care of by family. He and hiswife are considering moving to an independent care facility to reduce the burden of home maintenance. 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 Socially, he finds wing in spendingtime with his , family, and friends. He has a supportive network, including weekly coffee meetings with old friends. He values his independence and humor. Mr. Gross verbalizes his desire for DNR/DNI. Completed POST today to reflect his wishes. He has chosen selected treatments, noting that he is hopeful to continue with cardiac evaluation and evaluation/treatment of reversible causes with the hope that he may regain some of his ambition and physicalstamina. Thank you for the opportunity to see this patient. Patient has our contact information and understands to call with new/worsening symptoms or concerns. We will work alongside the primary outpatient team to address these issues. Palliative care outpatient clinic will continue to follow along. The palliative care nursing team has been directed to provide ongoing assessment, education, and therapy for symptom management according to the plan of care I have outlined. Follow up visit: provider 6-8 weeks, virtual visit Total time spent was 75 minutes. Eneida Mendoza APRN, C.N.P., M.S.N. documented in this encounter Plan of Treatment Upcoming Encounters Date Type Department Care Team (Late st Contact Info) Description 02/21/2025 10:00 AM CDT Telemedicine Department of Palliative Care in [address] [address] Eneida Mendoza APRN, C.N.P., M.S.N. 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 [address] [place] [phone] 03/13/2025 8:00 AM WIRE WINDING MACHINE TENDER Procedure visit Division of Pain Medicine in [address] [phone] Chuy Carter M.D. [address] [place] [phone] Scheduled Referrals Name Type Priority Associated Diagnoses Order Schedule Palliative Care office visit (clinic) Outpatient Referral Routine Expected: 02/21/2025, Expires: 04/07/2026 documented as of this encounter Visit Diagnoses Diagnosis Dyspnea On Exertion- Primary Palliative Care Adjustment Disorder Mixed Reaction Constipation Advanced Care Planning Fatigue Insomnia documented in this encounter Care Teams Power Chisel Operator Relationship Specialty Start Date End Date Elsewhere, Pcp PCP - General Family Medicine 11/27/20 Mary Ann Sol [address] [place] [id number] Seafood Team Member Physician 01/17/19 documented as of this encounter
--- OUTSIDE RECORDS SUMMARY | 2025-01-10 15:30 | XMS_ITS | Encounter Summary ---
Author Organization [facility] Address [address] [place] [address] Care Team Providers Care Soft Water Mechanic Name Role Phone Elsewhere, Pcp Primary Care Provider Unavailabl e Reason for Visit * Appointment Request (Routine) - Closed Specialty Diagnoses / Procedures Referred By Jesus Manuel melchor Referred To Contact Nephrology and Hypertension Myrna Sol M.D. 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 [facility] 09/21/2024 Education Answer Date Recorded What is the highest level of school you have completed or the highest degree you have received? Bachelor's degree (e.g., BA, AB, BS) 01/13/2019 Sex and Gender Information Value Date Recorded Sex Assigned at Male 08/22/2018 2:26 PM CDT Legal Sex Male 11:09 AM REHABILITATION MEDICINE PHYSICIAN Gender Identity Male 08/22/2018 2:26 PM CDT Sexual Orientation Straight 08/22/2018 2: 26 PM CDT documented as of this encounter Last Filed Vital Signs Vital Sign Reading Time Taken Comments Blood Pressure 102/52 01/10/2025 3:58 PM CDT Pulse 75 01/10/2025 3:58 PM CDT Temperature - - Respiratory Rate - - Oxygen Saturation - - Inhaled Oxygen Concentration - - Weight 75.9 kg (167 lb 5.3 oz) 01/10/2025 3:58 P M CDT Height 177.8 cm (5' 10) 01/10/2025 3:58 PM CDT Body Mass Index 24.01 01/10/2025 3:58 PM CDT documented in this encounter Consult Notes * Mynor Vasquez Jr., D.O. - 01/10/2025 3:30 PM CDT Referring Provider DR Sol SUBJECTIVE REASON FOR CONSULT [facility] Evaluation regards CKD HISTORY OF PRESENT ILLNESS Mr. Gross is a 84 y.o. male who presents with a longstanding elevation in his serum creatinine level dating back to at least 2014 when his serum creatinine level was at 1.4 mg/dL his baseline seems to be 1.82 mg/dL. He has a complex set of circumstances. 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 He has also had a tricuspid valve replacement, with a bioprosthetic device, which unfortunately is compromised with tricuspid regurgitation which is quite severe. He has COPD, heart failure with preserved ejection fraction, and severe pulmonary hypertension with right ventricular failure and dilatation. He requires nasal cannula oxygen at 1 L at nighttime. He is pacemaker dependent has atrial fibrillation as a background rhythm, obstructive sleep apnea and has suffered a TIA in the past. He has a cardiorenal perspective and generally tries to keep his weight about 160 lb. He will double the dose of torsemide from 20-40 mg for 2 days if his weight rises by 2 lb. Tends to accumulate fluid in his abdomen not necessarily his lower extremities. He has had frequent falls, which are attributable to lightheaded spells and poor balance. These hasbeen on the background also of hypoxemic respiratory failure with recent hospitalizations on the background additionally of a rectus sheath hematoma. Currently he feels very well. He just visited with palliative Care, has his goals of care defined he uses a DNR DNI, but still enjoys life. He does admit that he salts his food to heavily on occasion. He does not have orthopnea or PND currently, no fevers no chills no constitutional complaints, his appetite is intact. Lives in a town home with his , his son is in the lower level. 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 He has not had diabetes mellitus, I appreciate that the there is no familial history of kidney disease nor requirements for renal replacement therapy. He has never had gross hematuria, although I note his scan demonstrates a left-sided small stone back in September of 2024. This is nonobstructive. His CTscan does demonstrate cysts which are uncomplicated. Does not have urinary outlet symptoms. He doesnot use NSAIDs. He has had gout recently, but this seem to be on the background of diuretic acceleration. We discussed possible triggers of gout. No history of renal trauma or renal infections, no issues of gross hematuria or cola colored urine. We discussed the concepts surrounding cardiorenal syndrome. Medical History[1] Current Medications[2] REVIEW OF SYSTEMS All other systems reviewed and are negative. OBJECTIVE BP (!) 102/52 Pulse 75 Ht 177.8 cm Wt 75.9 kg BMI 24.01 kg/m?? PHYSICAL EXAMINATION General: Awake, alert, oriented. HEENT: CLAUDIA, EOMI, Mucous membranes moist, no oral lesions. Neck: No masses, no bruits. Lungs: Clear to auscultation. Heart: Regular rate and rhythm. No ectopy, 2/6 left upper sternal edge murmur there is a rocking motion of his sternum Abdomen: Soft, non-tender. Extremities: No cyanosis, no clubbing, no edema. Neuro: Cranial nerves intact. Gait is normal, strength grossly normal. Skin: No suspicious lesions identified. He has dramatic hemosiderin deposition and multiple bruises Psychiatric: Normal affect. DIAGNOSTICS Note creatinine 2.0 mg/dL most recent hemoglobin 9.2 in October of 2024 ASSESSMENT / PLAN #1 Chronic Kidney Disease (CKD), Stage 3b Glomerular Filtration Rate (GFR) 30 To 44 (HCC) This is on the background of nephrosclerosis. Strongly suspect a degree of cardiorenal syndrome andpossible thromboembolic phenomenon which occurred during his cardiac surgeries and his ongoing ischemic condition with respect to right heart failure and renal congestion. Going forward: 1. Would follow a heart failure Clinic approach as is being done, where he uses 20 mg of torsemide on a daily basis but may increase the dose to 40 mg for 2 days should his weight rise by 2 lb that is not explained by constipation. 2. No NSAIDs or Luevano 2 inhibitors 3. Goal blood pressure less than 130, greater than 100, achieved 4. Stay reasonably well hydrated, 50 oz of liquid per day 5. I will have him back in 4 months for surveillance. #2 Congestive Heart Failure (HCC) He seems compensated at this point, his regimen includes beta blockade, SG LT 2 inhibition, loop diuretics, and anticoagulation. Please see above discussion. 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 #4 Chronic Obstructive Pulmonary Disease Mild (HCC) Oxygen requiring with vigorous exertion, ascending stairs, and at night. #5 Anticoagulant Therapy He is on warfarin in his INR has been perfect. #6 Gout We discussed high urate foods including shellfish, organ meats, and recommended avoiding alcohol use. I am ambivalent at this point about him reinitiating allopurinol we will follow this, should he have another episode of gout this should be treated with 15 mg of prednisone daily until the gout resolves, and then I would resume allopurinol 100 mg orally daily. #7 Repeated Falls He seems relatively stable I observed him walking in clinic. #8 Anemia Of Chronic Renal Failure We will be monitoring his iron stores B12 folate and assess whether he needs an PAIGE regimen. If hishemoglobin is above 10 we would certainly not start, if his hemoglobin is below 10, he is symptomatic, with normal iron stores and B12 folate, we will consider initiation of Aranesp 60 mcg subQ monthly to target a hemoglobin of above 10 but below 11.5. #9 Hyperparathyroidism Renal Secondary (HCC) We will monitor calcium phosphorus and PTH Total Time: 1 hour Counseling Time: 37 minutes Mynor Vasquez Jr., D.O. [1] Past Medical History: Diagnosis Date Atrial Fibrillation Unspecified (HCC) 2004 Blood Transfusion No Diagnosis 2006 Cataract 2011 Chronic Obstructive Pulmonary Disease (HCC) Concussion Loss Of Consciousness Unspecified Duration Initial Coronary Artery Disease (Unspecified) Depressive Disorder 2005 Gallbladder Disorder Heart Failure NOS Other Injury Of Unspecified Body Region Pneumonia Polyp Colon Renal Disease Skin Cancer (Primary) NOS Sleep Apnea Transient Ischemic Attack 2016 Valvular Disease NOS [2] Current Outpatient Medications Medication Sig Dispense Refill acetaminophen (TylenoL) 325 mg tablet Take 650 mg by mouth every 4 (four) hours as needed for pain. amoxicillin (AMOXIL) 500 mg capsule Take 2,000 mg by mouth as needed (prior to dental procedures). cefdinir (Omnicef) 300 mg capsule Take 300 mg by mouth. DME Oxygen DME Order - for details see Order Report 1 each 0 empagliflozin (Jardiance) 25 mg tablet Take 0.5 tablets (12.5 mg total) by mouth daily before morning meal. 45 tablet 0 metoprolol succinate (Toprol XL) 25 mg 24 hr tablet Take 1 tablet (25 mg total) by mouth daily. Do not crush or chew. 30 tablet 3 metoprolol tartrate (Lopressor) 25 mg tablet Take 25 mg by mouth. predniSONE (Deltasone) 5 mg tablet Take 3 tablets (15 mg total) by mouth daily. 100 tablet 3 sennosides 8.6 mg capsule Take 8.6 mg by mouth. sertraline (ZOLOFT) 100 mg tablet Take 1 tablet by mouth daily. spironolactone (Aldactone) 25 mg tablet Take 0.5 tablets (12.5 mg total) by mouth daily. 15 tablet 11 torsemide (Demadex) 20 mg tablet Take 20 mg by mouth daily. warfarin (Jantoven) 10 mg tablet Take 0.5-1 tablets (5-10 mg total) by mouth daily. 10 mg on Thu/Thu/Thu and 5 mg all other days of the week Please take 5 mg on 09/25 and 10 mg on 09/26. Check INR on 09/27. No current facility-administered medications for this visit. documented in this encounter Plan of Treatment Upcoming Encounters Date Type Department Care Team (Late st Contact Info) Description 02/21/2025 10:00 AM CDT Telemedicine Department of Palliative Care in [place], [place] [address] [place] [address] Eneida Mendoza, YIN, C.N.P., M.S.N. [address] [place] [phone] 03/13/2025 7:00 AM REHABILITATION MEDICINE PHYSICIAN Lab Department of Laboratory Medicine and Pathology, [facility], in [place], [place] [address] [place] [address] Fanta Helms P.A.-C., M.S. [address] [place] [phone] 03/13/2025 8:00 AM REHABILITATION MEDICINE PHYSICIAN Procedure visit Division of Pain Medicine in [place], [place] [address] [place] [phone] Chuy Carter M.D. 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
--- OUTSIDE RECORDS SUMMARY | 2025-01-26 09:29 | XMS_ITS | Encounter Summary ---
Author Organization [facility] Address [address] [place] [address] Care Team Providers Care Chemical Processor Name Role Phone Elsewhere, Pcp Primary Care Provider Unavailabl e Encounter Details Date Type Department Care Team (Latest Contact Info) Description 01/26/2025 9:29 AM CDT - 01/26/2025 11:59 PM CDT Hospital Encounter Department of Cardiovascular Diseases in [place], [place] [address] [place] [address] Lena Luna M.D. [address] [place] [address] Discharge Disposition: Home or Self Care Social History Tobacco Use Types Packs/Day Years Used Date Smoking Tobacco: Former Cigarettes 1 50 0 05/04/1954 - 05/04/2004 Smokeless Tobacco: Never Alcohol Use Standard Drinks/Week Comments Yes 5 (1 standard drink = 0.6 oz pur e alcohol) [facility] Utilities Answer Date Recorded In the [...] your living situation today? I have a [facility] place to live 09/21/2024 Education Answer Date Recorded What is the highest level of school you have completed or the highest degree you have received? 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 amoxicillin (AMOXIL) 500 mg capsule Take 2,000 mg by mouth as needed (prior to dental procedures). cefdinir (Omnicef) 300 mg capsule Take 300 mg by mouth. 09/30/2024 DME OxygenIndications :Pneumonia DME Order - for details see Order Report 1 each 09/25/2024 metoprolol succinate (Toprol XL) 25 mg 24 hr tablet Take 1 tablet (25 mg total) by mouth daily. Do not crush or chew. 30 tablet 3 09/11/2024 metoprolol tartrate (Lopressor) 25 mg tablet Take 25 mg by mouth. 12/24/2023 predniSONE (Deltasone) 5 mg tabletIndications :Gout Take 3 tablets (15 mg total) by mouth daily. 100 tablet 3 11/23/2024 sennosides 8.6 mg capsule Take 8.6 mg by mouth. 11/29/2024 sertraline (ZOLOFT) 100 mg tablet Take 1 tablet by mouth daily. 09/13/2014 spironolactone (Aldactone) 25 mg tablet Take 0.5 tablets (12.5 mg total) by mouth daily. 15 tablet 11 10/11/2024 torsemide (Demadex) 20 mg tablet Take 20 mg by mouth daily. warfarin (Jantoven) 10 mg tablet Take 0.5-1 tablets (5-10 mg total) by mouth daily. 10 mg on Thu/Thu/Thu and 5 mg all other days of the week Please take 5 mg on 09/25 and 10 mg on 09/26. Check INR on 09/27. 09/25/2024 documented as of this encounter Plan of Treatment Upcoming Encounters Date Type Department Care Team (Late st Contact Info) Description 02/21/2025 10:00 AM CDT Telemedicine Department of Palliative Care in [place], [place] [address] [place] [phone] Eneida Mendoza APRN, C.N.P., M.S.N. [address] [place] [phone] 03/13/2025 7:00 AM CARTON FORMING MACHINE TENDER Lab Department of Laboratory Medicine and Pathology, [facility], in [place], [place] [address] [place] [phone] Fanta Helms P.A.-C., M.S. [address] [place] [phone] 03/13/2025 8:00 AM CARTON FORMING MACHINE TENDER Procedure visit Division of Pain Medicine in [place], [place] [address] [place] [phone] Chuy Carter M.D. [address] [place] [phone] documented as of this encounter Procedures Procedure Name Priority Date/Time Associated Diagnosis Comments INTERFACED REMOTE DEVICE CHECK Routine 01/26/2025 9:29 AM CDT documented in this encounter Results * CAR CARDIAC DEVICE INTERROGATION (01/26/2025 9:29 AM CDT) Date Time Interrogation Session [id number] [facility] Type Interrogation Session Remote Scheduled [facility] Implantable Pulse Generator Video Technician Gardiner Iggli [facility] Implantable Pulse Generator Type Pacemaker [facility] Implantable Pulse Generator Model L321 [facility] Implantable Pulse Generator Serial Number [id number] [facility] Implantable Pulse Generator Implant Date [id number] [facility] Battery Remaining Percentage 70.00 % [facility] Battery Remaining Longevity 72.0 mo [facility] Battery Status Beginning of Service [facility] Abelino Statistic RA Percent Paced 0.00 [facility] Abelino Statistic RV Percent Paced 95.00 [facility] Lead Channel Setting Sensing Sensitivity 0.15 [facility] Lead Channel Measurements Date and Time [id number] [facility] Lead Channel Sensing Intrinsic Amplitude 25.000 [facility] Lead Channel Setting Sensing Sensitivity 4.00 [facility] Lead Channel Impedance Value 1,273 [facility] Lead Channel Pacing Threshold Amplitude 2.000 [facility] Lead Channel Pacing Threshold Pulse Width 0.4 [facility] Lead Channel Measurements Date and Time [id number] [facility] Lead [...] [facility] Murj Rate 1 130 [facility] Zone Setting Status Monitor [facility] Murj Zone ID 1 [facility] Implantable Lead Video Technician Guidant [facility] Implantable Lead Model 4086 Flextend [facility] Implantable Lead Location Right Atrium [facility] Implantable Lead Connection Status Connected [facility] Implantable Lead Serial Number [id number] [facility] Implantable Lead Implant Date 20041129 [facility] Implantable Lead Special Function Lead length: 45.00 cm [facility] Implantable Lead Video Technician Guidant [facility] Implantable Lead Model 4087 Flextend [facility] Implantable Lead Location Right Ventricle [facility] Implantable Lead Connection Status Connected [facility] Implantable Lead Serial Number [id number] [facility] Implantable Lead Implant Date [id number] [facility] Implantable Lead Special Function Lead length: 52.00 cm [facility] Anatomical Region Laterality Modality Other 02/07/2025 7:47 PM CDT Impressions 02/07/2025 7:47 PM CDT Encounter Impression: Title: Normal Remote: With Events * Normal Device Function * Events or Alerts: 10 * Battery: Battery is at 70%, 6.00 yrs * Sensing, impedance and thresholds reviewed * Programmed parameters reviewed * Presenting rhythm reviewed and reports 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 * Heart Rate Histograms reviewed and report rates of 70-100 bpm. Title: Tachycardia: High Ventricular Rate * High ventricular rate event(s) detected within programmed monitor zone * Total episodes: 12 since last remote f/u on 10-27-2024. EGMs available report 14-18 beats at 143-147 bpm. Events with no EGMs report rates up to 185 bpm. The patient has a h/o dependency at times, as well as a slow ventricular escape associated with AF. Cannot r/o NSVT. He is scheduled for cardiology f/u on 02/07/2025. Additional Notes: Dr. Mayo updated. Patient has appt to see him on 02-07-2025. Plan: This patient underwent device interrogation. I agree that the device interrogation was medically indicated to provide appropriate care and continue routine device interrogations as indicated. Encounter Summary: This report includes 1 transmission that was received on 2025-01-26. Battery, lead impedance, sensing amplitude and pacing threshold data was reviewed. Narrative Procedure Note Lena Luna M.D. 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 * Heart Rate Histograms reviewed and report rates of 70-100 bpm. Title: Tachycardia: High Ventricular Rate * High ventricular rate event(s) detected within programmed monitorzone * Total episodes: 12 since last remote f/u on 10-27-2024. EGMs availablereport 14-18 beats at 143-147 bpm. Events with no EGMs report rates up to185 bpm. The patient has a h/o dependency at times, as well as a slowventricular escape associated with AF. Cannot r/o NSVT. He is scheduled for cardiology f/u on 02/07/2025. Additional Notes: Dr. Mayo updated. Patient has appt to see him [phone]. Plan: This patient underwent device interrogation. I agree that the deviceinterrogation was medically indicated to provide appropriate care andcontinue routine device interrogations as indicated. Encounter Summary: This report includes 1 transmission that was receivedon 2025-01-26. Battery, lead impedance, sensing amplitude and pacingthreshold data was reviewed. us Lena Luna M.D. CV IMPLANTABLE CARDIAC DEVICE Final Result documented in this encounter Visit Diagnoses Not on filedocumented in this encounter Care Teams Chemical Processor Relationship Specialty Start Date End Date Elsewhere, Pcp PCP - General Family Medicine 11/27/20 Mary Ann Sol [address] [place] [address] Molder Meat Physician 01/17/19 documented as of this encounter
--- OUTSIDE RECORDS SUMMARY | 2025-02-06 16:30 | XMS_ITS | Encounter Summary ---
Author Organization [facility] Address [address] [place] [address] Care Team Providers Care Air Breaker Operator Name Role Phone Elsewhere, Pcp Primary Care Provider Unavailabl e Encounter Details Date Type Department Care Team (Late st Contact Info) Description 02/06/2025 4:30 PM CDT Diagnostic Division of Pulmonary Medicine in [place], [place] [address] [place] [address] Anthony Sahu M.D. 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 I have a [facility] place to live 09/21/2024 Education Answer Date Recorded What is the highest level of school you have completed or the highest degree you have received? Bachelor's degree (e.g., BA, AB, BS) 01/13/2019 Sex and Gender Information Value Date Recorded Sex Assigned at Male 08/22/2018 2:26 PM CDT Legal Sex Male 11:09 AM BILL CHECKER Gender Identity Male 08/22/2018 2:26 PM CDT Sexual Orientation Straight 08/22/2018 2: 26 PM CDT documented as of this encounter Plan of Treatment Upcoming Encounters Date Type Department Care Team (Late st Contact Info) Description 02/21/2025 10:00 AM CDT Telemedicine Department of Palliative Care in [place], [place] [address] [place] [phone] Eneida Mendoza, YIN, C.N.P., M.S.N. [address] [place] [phone] 03/13/2025 7:00 AM BILL CHECKER Lab Department of Laboratory Medicine and Pathology, [facility], in [place], [place] [address] [place] [phone] Fanta Helms P.A.-C., M.S. [address] [place] [phone] 03/13/2025 8:00 AM BILL CHECKER Procedure visit Division of Pain Medicine in [place], [place] [address] [place] [phone] Chuy Carter M.D. 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 The patient stated they did consume alcohol and did not take sedative medication on the night of the study, and stated quality of sleep was worse than usual. Sheffield Sleepiness Scale was 11. The time spent <89% was 11.7 minutes, with a 4% desaturation index of 9.3. Impression: Abnormal overnight oximetry. The increased frequency of oscillatory desaturations suggests sleep-disordered breathing. The increased Sheffield Sleepiness Scale indicates excessive daytime sleepiness. us Anthony Sahu M.D. 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
--- OUTSIDE RECORDS SUMMARY | 2025-02-07 07:47 | XMS_ITS | Encounter Summary ---
Author Organization [facility] Address [address] [place] [address] Care Team Providers Care Visual Education Teacher Name Role Phone Elsewhere, Pcp Primary Care Provider Unavailabl e Encounter Details Date Type Department Care Team (Latest Contact Info) Description 02/07/2025 7:47 AM CDT - 02/07/2025 9:14 AM CDT Hospital Encounter Department of Laboratory Medicine and Pathology, [facility] in [place], [place] [address] [place] [address] Anthony Sahu M.D. 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 Never true 09/22/19 Within the past 12 months, t he [...] your living situation today? I have a [facility] place to live 09/21/2024 Education Answer Date Recorded What is the highest level of school you have completed or the highest degree you have received? Bachelor's degree (e.g., BA, AB, BS) 01/13/2019 Sex and Gender Information Value Date Recorded Sex Assigned at Male 08/22/2018 2:26 PM CDT Legal Sex Male 11:09 AM METAL MOULDER'S ASSISTANT Gender Identity Male 08/22/2018 2:26 PM [...] CDT Telemedicine Department of Palliative Care in [place], [place] [address] [place] [phone] Eneida Mendoza, YIN, C.N.P., M.S.N. [address] [place] [phone] 03/13/2025 7:00 AM METAL MOULDER'S ASSISTANT Lab Department of Laboratory Medicine and Pathology, [facility], in [place], [place] [address] [place] [phone] Fanta Helms P.A.-C., M.S. [address] [place] [phone] 03/13/2025 8:00 AM METAL MOULDER'S ASSISTANT Procedure visit Division of Pain Medicine in [place], [place] [address] [place] [address] Chuy Carter M.D. 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 Blood (Blood, Venous) 02/07/2025 7:55 AM CDT 02/07/2025 8:04 AM CDT us Anthony Sahu M.D. LAB BLOOD ADD-ON Final Resu lt [facility] [address] [place] [address], [place] DTL [facility] [address] [place] [address] * (ABNORMAL) CBC with Differential, Blood (02/07/2025 7:55 AM CDT) Pathologist [facility] Hemoglobin 8.7(L) 13.2 - 16.6 g/dL 02/07/2025 8:41 AM CDT DTL Hematocrit 28.7(L) 38.3 - 48.6 % 02/07/2025 8:41 AM CDT DTL Erythrocytes 3.38(L) 4.35 - 5.65 x10(12)/L 02/07/2025 8:41 AM CDT DTL MCV 84.9 78.2 - 97.9 fL 02/07/2025 8:41 AM CDT DTL RBC Distrib Width 19.5(H) 11.8 - 14.5 % 02/07/2025 8:41 AM CDT DTL Platelet Count 231 135 - 317 x10(9)/L 02/07/2025 8:41 AM CDT DTL Leukocytes 6.1 3.4 - 9.6 x10(9)/L 02/07/2025 8:41 AM CDT DTL Neutrophils 4.94 1.56 - 6.45 x10(9)/L 02/07/2025 8:41 AM CDT DHPM Lymphocytes 0.39(L) 0.95 - 3.07 x10(9)/L 02/07/2025 8:41 AM CDT DTL Monocytes 0.59 0.26 - 0.81 x10(9)/L 02/07/2025 8:41 AM CDT DTL Eosinophils 0.16 0.03 - 0.48 x10(9)/L 02/07/2025 8:41 AM CDT DTL Basophils 0.05 0.01 - 0.08 x10(9)/L 02/07/2025 8:41 AM CDT DTL Blood (Blood, Venous) 02/07/2025 7:55 AM CDT 02/07/2025 8:12 AM CDT us Anthony Sahu M.D. LAB BLOOD ADD-ON Final Resu lt [facility] [address] [place] [address], [place] DTL [facility] [address] [place] [address] [facility] [address] [place] [address] * (ABNORMAL) Comprehensive Metabolic Panel (02/07/2025 7:55 AM CDT) [facility] [address] Potassium, S 4.7 3.6 - 5.2 mmol/L 02/07/2025 8:59 AM CDT DTL Sodium, S 136 135 - 145 mmol/L 02/07/2025 8:59 AM CDT DTL Chloride, S 96(L) 98 - 107 mmol/L 02/07/2025 8:59 AM CDT DTL Bicarbonate, S 28 22 - 29 mmol/L 02/07/2025 8:59 AM CDT DTL Anion Gap 12 7 - 15 02/07/2025 8:59 AM CDT DTL BUN (Blood Urea Nitrogen), S 52(H) 8 - 24 mg/dL 02/07/2025 8:59 AM CDT DTL Creatinine 1.86(H) 0.74 - 1.35 mg/dL 02/07/2025 8:59 AM CDT DTL Estimated GFR (eGFR) 35(L) >=60 mL/min/BS A 02/07/2025 8:59 AM CDT DTL Comment: Estimated GFR calculated using the 2020 CKD_EPI creatinine equation. Calcium, Total, S 9.3 8.8 - 10.2 mg/dL 02/07/2025 8:59 AM CDT DTL Glucose, S 148(H) 70 - 140 mg/dL 02/07/2025 8:59 AM CDT DTL Protein, Total, S 6.9 6.3 - 7.9 g/dL 02/07/2025 8:59 AM CDT DTL Albumin, S 4.2 3.5 - 5.0 g/dL 02/07/2025 8:59 AM CDT DTL Aspartate Aminotransferase (AST), S 24 8 - 48 U/L 02/07/2025 8:59 AM CDT DTL Alkaline Phosphatase, S 143(H) 40 - 129 U/L 02/07/2025 8:59 AM CDT DTL Alanine Aminotransferase (ALT), S 17 7 - 55 U/L 02/07/2025 8:59 AM CDT DTL Bilirubin, Total, S 0.8 0.0 - 1.2 mg/dL 02/07/2025 8:59 AM CDT DTL Blood (Blood, Venous) 02/07/2025 7:55 AM CDT 02/07/2025 8:04 AM CDT us Anthony Sahu M.D. LAB BLOOD ADD-ON Final Resu lt [facility] [address] [place] [address], [facility] [address] [place] [address] documented in this encounter Visit Diagnoses Diagnosis 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) Dyspnea Multifactorial documented in this encounter Care Teams Visual Education Teacher Relationship Specialty Start Date End Date Elsewhere, Pcp PCP - General Family Medicine 11/27/20 Mary Ann Sol [address] [place] [phone] Brake Repair Supervisor Physician 01/17/19 documented as of this encounter
--- OUTSIDE RECORDS SUMMARY | 2025-02-07 09:15 | XMS_ITS | Encounter Summary ---
Author Organization [facility] Address [address] [place] [address] Care Team Providers Care Sr. Media Manager Name Role Phone Elsewhere, Pcp Primary Care Provider Unavailabl e Reason for Referral * Cardiovascular-Diagnostic (Routine) - Closed Specialty Diagnoses / Procedures Referred By Jesus Manuel melchor Referred To Contact Diagnoses 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) Procedures Echo Transthoracic (TTE) Anthony Sahu M.D. [address] [place] [address] Phone: tel: fax: [facility] Referral ID Status Reason Start Date Expiration Date Visits Re quested Visits Authorized [id number] Closed 10/25/2024 01/25/2026 1 1 Reason for Visit * Cardiovascular-Diagnostic (Routine) - Closed Specialty Diagnoses / Procedures Referred By Jesus Manuel melchor Referred To Contact Diagnoses 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) Procedures Echo Transthoracic (TTE) Anthony Sahu M.D. [address] [place] [address] Phone: tel: fax: [facility] Referral ID Status Reason Start Date Expiration Date Visits Re quested Visits Authorized [id number] Closed 10/25/2024 01/25/2026 1 1 Encounter Details Date Type Department Care Team (Latest Contact Info) Description 02/07/2025 9:15 AM CDT - 02/07/2025 11:18 AM CDT Hospital Encounter Department of Cardiovascular Diseases in [place], [place] [address] [place] [address] Anthony Sahu M.D. 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 Utilities Answer Date Recorded In the past 12 months has e [employer], gas, oil, or water [employer] threatened to shut off services in your [...] PM CDT Legal Sex Male 11:09 AM ANIMAL KILLER Gender Identity Male 08/22/2018 2:26 PM CDT [...] total) by mouth daily. 10 mg on Mon/Wed/Fri and 5 mg all other days of the week Please take 5 mg on 09/25 and 10 mg on 09/26. Check INR on 09/27. 09/25/2024 documented as of this encounter Plan of Treatment Upcoming Encounters Date Type Department Care Team (Late st Contact Info) Description 02/21/2025 10:00 AM CDT Telemedicine Department of Palliative Care in [place], [place] [address] [place] [phone] Eneida Mendoza APRN, C.N.P., M.S.N. [address] [place] [phone] 03/13/2025 7:00 AM ANIMAL KILLER Lab Department of Laboratory Medicine and Pathology, [facility] in [place], [place] [address] [place] [phone] Fanta Helms P.A.-C., M.S. [address] [place] [phone] 03/13/2025 8:00 AM ANIMAL KILLER Procedure visit Division of Pain Medicine in [address] [phone] Chuy Carter M.D. 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) documented in this encounter Results * (TTE) 2D ECHO DOPPLER COLOR (02/07/2025 10:26 AM CDT) Ejection Fraction 63 MC CV EIMS LV End-Diastolic Diameter 50 MC CV EIMS LV End-Systolic Diameter 32 MC CV EIMS MV E Velocity 0.9 MC CV EIMS MV e' Velocity Medial 0.05 MC CV EIMS MV e' Velocity Lateral 0.05 MC CV EIMS MV E/e' Medial 18 MC CV EIMS MV E/e' Lateral 18 MC CV EIMS RV 4-Chamber Basal Diameter 65 MC CV EIMS RV 4-Chamber Mid Diameter 61 MC CV EIMS RV 4-Chamber Length 93 MC CV EIMS Tricuspid Annular S 0.07 MC CV EIMS RV Free Wall Strain -14 MC CV EIMS TR Vmax 3.44 MC CV EIMS Estimated RA Pressure (Echo RAP) 20 MC CV EIMS RV Systolic Pressure (with Echo RAP) 67 MC CV EIMS Pulmonary Artery Diastolic Pressure (with Echo RAP) 24 MC CV EIMS AV mean gradient 5 MC CV EIMS Aortic Valve Systolic Peak Velocity 1.7 MC CV EIMS Anatomical Region Laterality Modality Echocardiography 02/07/2025 9:25 AM CDT Impressions 02/07/2025 11:05 AM CDT Echocardiogram performed per pulmonary hypertension protocol. Last full echocardiogram performed 04/21/2024. LEFT VENTRICLE:Normal left ventricular chamber size. Calculated 2-D linear left ventricular ejection fraction 63%. Abnormal ventricular septal motion - post-operative without other regional wall motion abnormalities. D-shaped left ventricle. No regional wall motion abnormalities. Elevated left ventricular filling pressure. RIGHT VENTRICLE:Severely enlarged right ventricular chamber size. Severely reduced right ventricular systolic function. Averaged right ventricular free wall longitudinal peak systolic strain is -14% (normal </= -25%). Right ventricular systolic pressure 67 mmHg (right atrial pressure of 20 mmHg). Mid systolic notching flow pattern of the right ventricular outflow tract consistent with an elevation in pulmonary vascular resistance. ATRIA:Mildly enlarged left atrial size by visual estimate. Severely enlarged right atrial size by visual estimate. 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 Unable to evaluate aortic mean gradient due to difficult doppler alignment in the context of severe right ventricular enlargement No aortic valve periprosthetic regurgitation. Trivial (normal washing jets) aortic valve prosthetic regurgitation. Thickened mitral valve. Mildly calcified mitral annulus. Mild mitral valve regurgitation. Normal pulmonary valve. Mild pulmonary valve regurgitation. Status post tricuspid valve repair with 28 mm Carbo-Medics AnnuloFlex band (01-NOV-2014). Tricuspid valve diastolic mean Doppler gradient 2 mmHg (heart rate 76 BPM). 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 No intracardiac mass or thrombus, but the left atrial appendage cannot be visualized adequately with transthoracic echo to exclude thrombus in this location. No pericardial effusion. For the complete report, see the Order-Level Documents. Narrative 02/07/2025 11:05 AM CDT For the complete report, see the Order-Level Documents. Hemodynamics Heart Rate: 70 BPM Blood Pressure: 93 / 61 mmHg ECG: Atrial fibrillation, Dual Chamber Pacemaker Final Impressions 1. Severe tricuspid valve regurgitation in the context of prior 28 mm Carbo- [employer] AnnuloFlex band (01-NOV-2014). TR likely secondary to lead-leaflet interference with impingement of septal vs anterior leaflet, and pulmonary hypertension. Consider BELEN for further delineation of leaflet involvement if clinically indicated 2. Severely enlarged right ventricular chamber size, severely reduced systolic function, averaged right ventricular free wall longitudinal peak systolic strain is -14% (normal </= -25%), right ventricular systolic pressure 67 mmHg (right atrial pressure of 20 mmHg). 3. Severely enlarged inferior vena cava size with no inspiratory collapse. 4. Mid systolic notching flow pattern of the right ventricular outflow tract consistent with an elevation in pulmonary vascular resistance. 5. Normal left ventricular chamber size, no regional wall motion abnormalities, calculated 2-D linear ejection fraction 63%. 6. Elevated left ventricular filling pressure; D shaped left ventricle 7. 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 Unable to evaluate aortic mean gradient due to difficult doppler alignment in the context of severe right ventricular enlargement; however, absence of systolic flow acceleration across the prosthesis suggests against significant stenosis. Trivial (normal washing jets) aortic valve prosthetic regurgitation, no periprosthetic regurgitation. 8. Aortic prosthesis difficult to evaluate due to difficult Doppler alignment. No suspicion of dysfunction with normal washing jets and no systolic flow acceleration. 9. No pericardial effusion. 10. Compared to the report of 09/06/2024 no significant change has occurred. Side by side comparison of images performed. Procedure Note Kasi Ruff M.D., Ph.D. - 02/07/2025 For the complete report, see the Order-Level Documents. Hemodynamics Heart Rate: 70 BPM Blood Pressure: 93 / 61 mmHg ECG: Atrial fibrillation, Dual Chamber Pacemaker Final Impressions 1. Severe tricuspid valve regurgitation in the context of prior 28 mmCarbo- Medics AnnuloFlex band (01-NOV-2014). TR likely secondary tolead-leaflet interference with impingement of septal vs anterior leaflet,and pulmonary hypertension. Consider BELEN for further delineation ofleaflet involvement if clinically indicated 2. Severely enlarged right ventricular chamber size, severely reducedsystolic function, averaged right ventricular free wall longitudinal peaksystolic strain is -14% (normal </= -25%), right ventricular systolicpressure 67 mmHg (right atrial pressure of 20 mmHg). 3. Severely enlarged inferior vena cava size with no inspiratorycollapse. 4. Mid systolic notching flow pattern of the right ventricular outflowtract consistent with an elevation in pulmonary vascular resistance. 5. Normal left ventricular chamber size, no regional wall motionabnormalities, calculated 2-D linear ejection fraction 63%. 6. Elevated left ventricular filling pressure; D shaped left ventricle 7. Status post 25 mm Carbo-Medics mechanical aortic valve prosthesis withHemashield ascending aorta graft (10-SEP-2007). Unable to evaluate aorticmean gradient due to difficult doppler alignment in the context of severeright ventricular enlargement; however, absence of systolic flowacceleration across the prosthesis suggests against significant stenosis.Trivial (normal washing jets) aortic valve prosthetic regurgitation, noperiprosthetic regurgitation. 8. Aortic prosthesis difficult to evaluate due to difficult Doppleralignment. No suspicion of dysfunction with normal washing jets and nosystolic flow acceleration. 9. No pericardial effusion. 10. Compared to the report of 09/06/2024 no significant change hasoccurred. Side by side comparison of images performed. Findings Echocardiogram performed per pulmonary hypertension protocol. Last fullechocardiogram performed 04/21/2024. LEFT VENTRICLE:Normal left ventricular chamber size. Calculated 2-D linearleft ventricular ejection fraction 63%. Abnormal ventricular septal motion- post- operative without other regional wall motion abnormalities.D-shaped left ventricle. No regional wall motion abnormalities. Elevatedleft ventricular filling pressure. RIGHT VENTRICLE:Severely enlarged right ventricular chamber size. Severelyreduced right ventricular systolic function. Averaged right ventricularfree wall longitudinal peak systolic strain is -14% (normal </= -25%).Right ventricular systolic pressure 67 mmHg (right atrial pressure of 20mmHg). Mid systolic notching flow pattern of the right ventricular outflowtract consistent with an elevation in pulmonary vascular resistance. ATRIA:Mildly enlarged left atrial size by visual estimate. Severelyenlarged right atrial size by visual estimate. CARDIAC VALVES:Status post 25 mm Carbo-Medics mechanical aortic valveprosthesis with Hemashield ascending aorta graft (10-SEP-2007). Unable toevaluate aortic mean gradient due to difficult doppler alignment in thecontext of severe right ventricular enlargement No aortic valveperiprosthetic regurgitation. Trivial (normal washing jets) aortic valveprosthetic regurgitation. Thickened mitral valve. Mildly calcified mitralannulus. Mild mitral valve regurgitation. Normal pulmonary valve. Mildpulmonary valve regurgitation. Status post tricuspid valve repair with 28mm Carbo-Medics AnnuloFlex band (01-NOV-2014). Tricuspid valve diastolicmean Doppler gradient 2 mmHg (heart rate 76 BPM). Severe tricuspid valveregurgitation , likely secondary to lead-leaflet interference withimpingement of the septal and posterior leaflets OTHER ECHO FINDINGS:Device lead (s) identified in right atrium and rightventricle. No intracardiac mass or thrombus, but the left atrial appendagecannot be visualized adequately with transthoracic echo to excludethrombus in this location. No pericardial effusion. For the complete report, see the Order-Level Documents. us Anthony Sahu M.D. 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 Media Manager Relationship Specialty Start Date End Date Elsewhere, Pcp PCP - General Family Medicine 11/27/20 Mary Ann Sol [address] [place] [address] Property Insurance Claims Examiner Physician 01/17/19 documented as of this encounter
--- OUTSIDE RECORDS SUMMARY | 2025-02-07 11:19 | XMS_ITS | Encounter Summary ---
Author Organization [facility] Address [address] [place] [address] Care Team Providers Care Jig Borer Name Role Phone Elsewhere, Pcp Primary Care Provider Unavailabl e Reason for Referral * Outpatient (Routine) - Closed Specialty Diagnoses / Procedures Referred By Jesus Manuel melchor Referred To Contact Diagnoses Pain Neck Mechanical Procedures DX Cervical Spine 4-5 Views Ramón Villaseñor M.D. [address] [place] [address] Phone: tel: fax: [facility] Referral ID Status Reason Start Date Expiration Date Visits Re quested Visits Authorized [id number] Closed 11/24/2024 02/24/2026 1 1 Reason for Visit * Outpatient (Routine) - Closed Specialty Diagnoses / Procedures Referred By Jesus Manuel melchor Referred To Contact Diagnoses Pain Neck Mechanical Procedures DX Cervical Spine 4-5 Views Ramón Villaseñor M.D. [address] [place] [address] Phone: tel: fax: [facility] Referral ID Status Reason Start Date Expiration Date Visits Re quested Visits Authorized [id number] Closed 11/24/2024 02/24/2026 1 1 Encounter Details Date Type Department Care Team (Latest Contact Info) Description 02/07/2025 11:19 AM CDT - 02/07/2025 11:59 PM CDT Hospital Encounter Department of Radiology, [facility], in [place], [place] [address] [place] [address] Ramón Villaseñor M.D. [address] [place] [address] Pain Neck Mechanical Discharge Disposition: Home or Self Care Social History Tobacco Use Types Packs/Day Years Used Date Smoking Tobacco: Former Cigarettes 1 50 0 05/04/1954 - 05/04/2004 Smokeless Tobacco: Never Alcohol Use Standard Drinks/Week Comments Yes 5 (1 standard drink = 0.6 oz pur e alcohol) [facility] Utilities Answer Date Recorded In the past 12 months has e [employer], gas, oil, or water [employer] threatened to shut off services in your [...] PM CDT Legal Sex Male 11:09 AM PLASTIC ROLLER Gender Identity Male 08/22/2018 2:26 PM CDT [...] CDT Telemedicine Department of Palliative Care in [place], [place] [address] [place] [phone] Eneida Mendoza APRN, C.N.P., M.S.N. [address] [place] [phone] 03/13/2025 7:00 AM PLASTIC ROLLER Lab Department of Laboratory Medicine and Pathology, [facility], in [address] [phone] Fanta Helms P.A.-C., M.S. [address] [place] [phone] 03/13/2025 8:00 AM PLASTIC ROLLER Procedure visit Division of Pain Medicine in [address] [phone] Chuy Carter M.D. [address] [place] [phone] documented as of this encounter Procedures Procedure Name Priority Date/Time Associated Diagnosis Comments DX CERVICAL SPINE 4-5 VIEWS RAD - Routine (most inpatients and all outpatients) 02/07/2025 11:50 AM CDT Pain Neck Mechanical documented in this encounter Results * DX Cervical Spine 4-5 Views (02/07/2025 11:50 AM CDT) Anatomical Region Laterality Modality Cervical Spine, Musculoskele andrés RST LOS, Neuroradiology ARZ LOS, Muskuloskeletal FLA LOS N/A Digita l Radiography Impressions 02/07/2025 11:52 AM CDT Slight reversal of the normal cervical lordosis. Degenerative narrowing of the C3-C6 interspaces with mild hypertrophic change. Slight anterior subluxation C2 on C3 in flexion with partial reduction in extension. Vascular calcifications. Sternotomy. Pacemaker. Narrative 02/07/2025 11:52 AM CDT EXAM: DX CERVICAL SPINE 4-5 VIEWS Procedure Note Jay Gómez M.D. - 02/07/2025 EXAM: DX CERVICAL SPINE 4-5 VIEWS IMPRESSION: Slight reversal of the normal cervical lordosis. Degenerative narrowing ofthe C3-C6 interspaces with mild hypertrophic change. Slight anteriorsubluxation C2 on C3 in flexion with partial reduction in extension.Vascular calcifications. Sternotomy. Pacemaker. Ramón Villaseñor M.D. [facility] PROC EDURES Final Result documented in this encounter Visit Diagnoses Diagnosis Pain Neck Mechanical documented in this encounter Care Teams Jig Borer Relationship Specialty Start Date End Date Elsewhere, Pcp PCP - General Family Medicine 11/27/20 Mary Ann Sol [address] [place] [phone] Mechanical Reliability Engineer Physician 01/17/19 documented as of this encounter
--- OUTSIDE RECORDS SUMMARY | 2025-02-07 14:00 | XMS_ITS | Encounter Summary ---
Author Organization [facility] Address [address] [place] [address] Care Team Providers Care Allergy Nurse Name Role Phone Elsewhere, Pcp Primary Care Provider Unavailabl e Reason for Referral * Cardiovascular-Diagnostic (Routine) - Authorized Specialty Diagnoses / Procedures Referred By Jesus Manuel melchor Referred To Contact Diagnoses Atrial Fibrillation Permanent (HCC) Supraventricular Tachycardia, Unspecified (HCC) Presyncope Procedures ECG Heart rhythm monitor (Holter) Mynor Mayo M.D. [address] [place] [address] Phone: tel: fax: [facility] Referral ID Status Reason Start Date Expiration Date V isits Requested Visits Authorized [id number] Authorized 02/07/2025 05/10/2026 1 1 Reason for Visit * Outpatient (Routine) - Closed Specialty Diagnoses / Procedures Referred By Jesus Manuel melchor Referred To Contact Cardiovascular Disease Anthony Sahu M.D. [address] [place] [address] Phone: tel: fax: Mynor Mayo M.D. [address] [place] [address] Phone: tel: fax: Referral ID Status Reason Start Date Expiration Date Visits Re quested Visits Authorized [id number] Closed 10/25/2024 04/26/2026 1 1 Encounter Details Date Type Department Care Team (Latest Contact Info) Description 02/07/2025 2:00 PM CDT Office Visit Department of Cardiovascular Medicine in [place], [place] [address] [place] [address] Mynor Mayo M.D. 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 I have a [facility] place to live 09/21/2024 Education Answer Date Recorded What is the highest level of school you have completed or the highest degree you have received? 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 - 02/07/2025 2:00 PM CDT REFERRAL SOURCE Anthony Sahu M.D. SUBJECTIVE CHIEF COMPLAINT / REASON FOR VISIT Re-evaluation of pulmonary hypertension, lightheadedness, weakness, falls HISTORY OF PRESENT ILLNESS Mr. Gross is an 84-year-old man who is accompanied by his and son and [id number]. He is here for re-evaluation of several medical problems related to his cardiovascular disease. I have seen him on one prior occasion (10/21/2024). He has been seen by several Cardiology colleagues over the years. He mentions that he has had a difficult summer. He had several falls in September and October, two of which required hospitalization. These days he has episodic dizziness and lightheadedness, and feels weak alot of the time. He also has exertional dyspnea with low levels of activity and has been aware of in termittent tachypalpitations. He uses oxygen at night and recently acquired portable oxygen tanks to use when he is ambulatory. He says that he can bathe and dress himself okay although he feels fatigued and lightheaded at times.He can walk from room to room in his house. If he walks across the street to get his mail (20 yards), he feels very short of breath. Occasionally, he has to stop when climbing flight of stairs. He has not had any lower extremity edema recently, but has had intermittent abdominal swelling. This is where he feels the fluid overload. He has, in recent weeks, increased his torsemide dose from 20 mg daily to 40 mg daily. Other symptoms include diffuse itching/discomfort of his skin (legs, arms, and face). He has noticed this for approximately six weeks. The only new medications used in recent months were prednisone for gout and spironolactone 12.5 mg daily. He tells me that he pushes himself to drink a lot of fluids. He sometimes add salt to his food because he likes salt. He does not really restrict his salt intake. 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 He has a dual- chamber pacemaker. There is also history of obstructive sleep apnea. He could not tolerate CPAP, but uses oxygen 1.5 L at night. Because of low blood pressures, he is some of his medications has been cut back (Toprol XL 12.5 mg daily, Jardiance 12.5 mg daily). The following portions of the patient's history were reviewed and updated as appropriate: allergies, current medications, family history, social history, medical history, and surgical history. I alsoreviewed pertinent clinical notes in the electronic health record. REVIEW OF SYSTEMS A comprehensive review of systems was completed; pertinent abnormalities are included in the HPI, all other systems negative. Current Medications[1] OBJECTIVE VITALS BP (!) 104/53 (BP Location: Left arm, Patient Position: Sitting, Cuff Size: Large) Pulse 70 Ht 177.1 cm Wt 74.5 kg SpO2 92% BMI 23.75 kg/m?? PHYSICAL EXAMINATION General: Tired-appearing elderly man, not dyspneic at rest Psychiatric: Oriented to person, place, and time. Eyes: Pale, not jaundiced Vessels: Jugular venous pressure elevated; a venous waveform is seen 2 cm above the clavicle at 45??, V-wave not prominent at this time Heart: Heart sounds loud. A mid range 2/6 systolic murmur is audible at the left sternal border. Lungs: Dull to percussion at the right base with decreased breath sounds; inspiratory crackles at the left base Abdomen: Somewhat protuberant and distended, no obvious hepatosplenomegaly. No abdominal tenderness, no masses. Extremities: No lower extremity edema Skin: No stasis dermatitis or ulceration of the lower extremities. Musculoskeletal: no acute joints DIAGNOSTIC REVIEW Sodium 136, potassium 4.7, creatinine 1.86, hemoglobin 8.7 g/dl, NT proBNP 5 162 ASSESSMENT / PLAN #1 Pulmonary hypertension, combined pre- and post-capillary #2 History of HFpEF #3 Permanent atrial fibrillation, prior AV node ablation and PPM placement #4 S/p mechanical aortic valve replacement and ascending aorta replacement #5 S/p tricuspid valve repair #6 Severe tricuspid regurgitation, ? due to lead impingement #7 Episodic lightheadedness, recurrent falls earlier this year #8 Chronic kidney disease #9 Normocytic anemia (Hb 8.7 g/dl) I had a full discussion with Mr. Gross and his family. There are several issues that concern them,including his episodic lightheadedness, easy fatigability, and tendency to fluid retention requiring high doses of diuretic. It is possible that he is having episodic tachycardia (atrial fibrillation or SVT) that could be causing symptomatic hypotension (see 01/26/2025 note by Yara Godinez RN, ECG monitoring lab). Additionally, it is likely that he is ingesting more salt and fluid than he needs. Currently, he drinks approximately 16 cups of fluid per day (64 oz of water, the rest Ensure, coffee, milk and orange juice). Ihave recommended that he reduce his fluid intake by approximately 33%, restrict salt more avidly, and reduce his dose of torsemide to 20 mg daily. His blood pressure is on the low side. He is already on very small doses of a number of medications, including Jardiance, metoprolol, and spironolactone. I have recommended that he undergo extended ambulatory ECG monitoring, starting with a 24-hour Holter, and then extending for 14 days. If he doeshave frequent breakthrough episodes of atrial fibrillation with a rapid heart rates or SVT, he may need AV node ablation. It is not clear what the cause of his skin discomfort is. He is not sure that it is actually an itch, but has he has been aware of this discomfort for six weeks. No rash. We could stop the spironolactone and see how he responds. He is inclined to stay on the spironolactone at this time. I have recommended that he see his primary healthcare provider, Dr. Elaina Sol, more frequently, given his current symptoms. I will plan on following up on the results of the ambulatory ECG monitoring. I personally spent over half of a total 60 minutes in counseling and discussion with the patient and coordination of care as described above. Mynor Mayo M.D. 02/07/2025 [1] Current Medications: acetaminophen (TylenoL) 325 mg tablet, Take 650 mg by mouth every 4 (four) hours as needed for pain. amoxicillin (AMOXIL) 500 mg capsule, Take 2,000 mg by mouth as needed (prior to dental procedures). cefdinir (Omnicef) 300 mg capsule, Take 300 mg by mouth. DME Oxygen, DME Order - for details see Order Report empagliflozin (Jardiance) 25 mg tablet, Take 0.5 tablets (12.5 mg total) by mouth daily before morning meal. metoprolol succinate (Toprol XL) 25 mg 24 hr tablet, Take 1 tablet (25 mg total) by mouth daily. Donot crush or chew. metoprolol tartrate (Lopressor) 25 mg tablet, Take 25 mg by mouth. predniSONE (Deltasone) 5 mg tablet, Take 3 tablets (15 mg total) by mouth daily. sennosides 8.6 mg capsule, Take 8.6 mg by mouth. sertraline (ZOLOFT) 100 mg tablet, Take 1 tablet by mouth daily. spironolactone (Aldactone) 25 mg tablet, Take 0.5 tablets (12.5 mg total) by mouth daily. torsemide (Demadex) 20 mg tablet, Take 20 mg by mouth daily. warfarin (Jantoven) 10 mg tablet, Take 0.5-1 tablets (5-10 mg total) by mouth daily. 10 mg on Thu/Thu/Thu and 5 mg all other days of the week Please take 5 mg on 09/25 and 10 mg on 09/26. Check INR on 09/27. documented in this encounter Plan of Treatment Upcoming Encounters Date Type Department Care Team (Late st Contact Info) Description 02/21/2025 10:00 AM CDT Telemedicine Department of Palliative Care in [address] [phone] Eneida Mendoza, YIN, C.N.P., M.S.N. 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 [address] [place] [phone] documented as of this encounter Results * HOLTER MONITOR - [facility] (02/09/2025 11:26 PM CDT) Min Heart Rate 69 bpm INFOB IONIC MOME Max Heart Rate 98 bpm INFOB IONIC MOME Mean Heart Rate 72 bpm INFOBIONIC MOME VE Total Beats 1125 count INFOB IONIC MOME VE Percent Beats 1 percent INFOBIONIC MOME SVE Total Beats 0 count INFOBIONIC MOME SVE Percent Beats less than 1 percent INFOBIONIC MOME AF Count 1 count INFOBIONIC MOME AF Duration 22h 32m duration INFOBION IC MOME AF [place] 100 percent INFOBIONIC MOME Longest AF Duration 23h 51m duration INFOBIONIC MOME Symptom Count 0 count INFOBI ONIC MOME 02/08/2025 12:5 5 PM CDT Narrative INFOBIONIC MOME - 02/10/2025 1:00 AM CDT 1. The basic rhythm was ventricular paced rhythm with underlying atrial fibrillation. Varying ventricular paced morphologies were seen. The total analyzed time was 22h 32m. The heart rate varied from 69 to 98 bpm. The average HR was 72 bpm. There was an AF burden of 100%. 2. Premature ventricular complexes and/or aberrantly conducted complexes were noted singly, paired, in a trigeminal pattern, and in six 3-beat ventricular runs with a maximum rate of 108 bpm. There was one 18-beat run of accelerated idioventricular rhythm seen with a rate of 99 bpm. There were three 5-9 beat runs of non- sustained ventricular tachycardia seen with a maximum rate of 151 bpm. There were 1,125 PVCs recorded with a PVC burden of 1%. 3. No patient triggered events were noted. Brand Leader: VALERIE Benoit A Holter monitor with cascade to extended monitoring was ordered for the indication of Suspected tachyarrhythmia. During the Holter monitoring period, the patient did have VT >=110bpm or SVT >=140bpm but none of them lasted anywhere close to >=30 beats. There also was no AF >=30 seconds.In addition, the patient did not report any symptoms. Therefore, monitoring is being continued. Therefore, the study was cascaded to extended monitoring. Procedure Note Ramón Lozano M.D., Ph.D. - 02/10/2025 1. The basic rhythm was ventricular paced rhythm with underlying atrialfibrillation. Varying ventricular paced morphologies were seen. The totalanalyzed time was 22h 32m. The heart rate varied from 69 to 98 bpm. Theaverage HR was 72 bpm. There was an AF burden of 100%. 2. Premature ventricular complexes and/or aberrantly conducted complexeswere noted singly, paired, in a trigeminal pattern, and in six 3-beatventricular runs with a maximum rate of 108 bpm. There was one 18-beat runof accelerated idioventricular rhythm seen with a rate of 99 bpm. There were three 5-9 beat runs ofnon- sustained ventricular tachycardia seen with a maximum rate of 151 bpm.There were 1,125 PVCs recorded with a PVC burden of 1%. 3. No patient triggered events were noted. Brand Leader: VALERIE Benoit A Holter monitor with cascade to extended monitoring was ordered for theindication of Suspected tachyarrhythmia. During the Holter monitoringperiod, the patient did have VT >=110bpm or SVT >=140bpm but none of themlasted anywhere close to >=30 beats. There also was no AF >=30 seconds.In addition, the patient did not reportany symptoms. Therefore, monitoring is being continued. Therefore, the study was cascaded to extended monitoring. us Mynor Mayo M.D. 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
--- OUTSIDE RECORDS SUMMARY | 2025-02-08 10:30 | XMS_ITS | Encounter Summary ---
Author Organization [facility] Address [address] [place] [address] Care Team Providers Care Set Painter Name Role Phone Elsewhere, Pcp Primary Care Provider Unavailabl e Reason for Referral * Outpatient (Routine) - Authorized Specialty Diagnoses / Procedures Referred By Contac t Referred To Contact Diagnoses Pain Myofascial Cervical Procedures PM Trigger point injection Fanta Helms P.A.-C., M.S. [address] [place] [address] Phone: tel: fax: [facility] Referral ID Status Reason Start Date Expiration Date V isits Requested Visits Authorized [id number] Authorized 02/08/2025 05/11/2026 1 1 Reason for Visit * Outpatient (Routine) - Closed Specialty Diagnoses / Procedures Referred By Contac t Referred To Contact Pain Medicine Diagnoses Pain Neck Mechanical Ramón Villaseñor M.D. [address] [place] [address] Phone: tel: fax: [facility] Referral ID Status Reason Start Date Expiration Date Visits Re quested Visits Authorized [id number] Closed 11/23/2024 05/25/2026 1 1 Encounter Details Date Type Department Care Team (Latest Contact Info) Description 02/08/2025 10:30 AM CDT Comprehensive Visit Division of Pain Medicine in [place], [place] [address] [place] [address] Fanta Helms P.A.-C., M.S. [address] [place] [address] Pain Myofascial Cervical (Primary Dx); Pain Neck Mechanical; Spondylosis Cervical Without Myelopathy Social History Tobacco Use Types Packs/Day Years Used Date Smoking Tobacco: Former Cigarettes 1 50 0 05/04/1954 - 05/04/2004 Smokeless Tobacco: Never Tobacco Cessation:Counseling Given: Not Answered Alcohol Use Standard Drinks/Week Comments Yes 5 (1 standard drink = 0.6 oz pur e alcohol) [facility] Utilities Answer Date Recorded In the past 12 months has e [employer], gas, oil, or water [employer] threatened to shut off services in your [...] living situation today? I have a [facility] place to live 09/21/2024 Education Answer Date Recorded What is the highest level of school you have completed or the highest degree you have received? Bachelor's degree (e.g., BA, AB, BS) 01/13/2019 Sex and Gender Information Value Date Recorded Sex Assigned at Male 08/22/2018 2:26 PM CDT Legal Sex Male 11:09 AM NEONATAL INTENSIVE CARE UNIT NURSE Gender Identity Male 08/22/2018 2:26 PM CDT Sexual Orientation Straight 08/22/2018 2: 26 PM CDT documented as of this encounter Consult Notes * Fanta Helms P.A.-C., M.S. - 02/08/2025 10:30 AM CDT SUBJECTIVE REFERRING PROVIDER Ramón Villaseñor M.D. [address] [place] [phone] CHIEF COMPLAINT / REASON FOR VISIT: Neck pain. HISTORY OF PRESENT ILLNESS: Sam Gross is a 84 y.o. male with a history of atrial fibrillation on chronic anticoagulation, congestive heart failure, TIA, GERD, COPD, TIM, CKD, pacemaker implant, and recurrent falls referred to the Pain Clinic to address neck pain. Sam today accompanied by his Lizeth and son Christopher. He endorses right- sided neck pain whichhas been worsening over recent years. The pain is located throughout the right-sided cervical paraspinals into the right trapezius. He has no upper extremity radicular symptoms. He describes the painas being constant with variable intensity, sharp, and stabbing. The pain is worse with virtually any movement, lifting, and yard work. Pain is improved with rest. Current Medications: None routinely for neck pain Prior medications: Prednisone 50 mg daily for gout flare - found helpful for neck Prior Injections: None for neck Other prior treatments: PT with now home-based regimen Diclofenac Gel Massage No recent fevers, chills, infections or antibiotics. No allergies to local anesthetic, corticosteroid, or contrast dye. He is anticoagulated with warfarin. Pain score today: 05/13. OBJECTIVE History was reviewed including allergies, current medications, review of systems, family history, medical and surgical history, social history, and problem list. PHYSICAL EXAM GENERAL: Pleasant, 84 y.o. male, in no acute distress. HEAD: Normocephalic and atraumatic. EYES: Pupils 3 mm. LUNGS: Unlabored respirations. SKIN: Inspection of posterior head and neck reveals a seemingly soft lipoma or cyst to the right ofthe C7 spinous process. This is mobile. No erythema, edema, lesions, or rashes. GAIT: Antalgic. He is traveling about the [facility] in a wheelchair pushed by his son. MUSCULOSKELETAL: He is tender throughout the right-sided cervical paraspinals and into the proximalright trapezius. SPINE: INSPECTION: He has forward head posture. ROM: Severely limited cervical spine extension. Cervical flexion is intact. Estimated 50% reductionof cervical spine rotation to the right and left. NEURO: STRENGTH: Upper extremity strength testing is grossly normal throughout. SENSATION: Intact to light touch throughout the bilateral upper extremities. MENTAL: Alert, oriented, appropriate mood and affect, recent and remote memory intact. DIAGNOSTICS Cervical spine plain films 02/07/2025: Slight reversal of the normal cervical lordosis. Degenerativenarrowing of the C3-C6 interspaces with mild hypertrophic change. Slight anterior subluxation C2 onC3 in flexion with partial reduction in extension. Vascular calcifications. Sternotomy. Pacemaker. 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 male with a history of atrial fibrillation on chronic anticoagulation, congestive heart failure, TIA, GERD, COPD, TIM, CKD, pacemaker implant, and recurrent falls referred to the Pain Clinic to address neck pain. Clinical presentation today's consistent with: Mechanical and myofascial neck pain. MEDICAL DECISION MAKING 1. Conservative: Recommended iyil-nfo-dotaged Salonpas patches with lidocaine, ongoing home based range of motion exercises, and application of topical diclofenac gel. 2. Medications: He could consider utilizing acetaminophen 500-1000 mg prn. Recommended no greater than 3000 mg per day. 3. Imaging: Reviewed cervical spine x-ray findings with the patient and his family today. 4. Injections/interventions: The safest injections for him, given his cardiovascular history and anticoagulation, would be ultrasound-guided right- sided cervical paraspinal and trapezius trigger point injections. He has no contraindications to proceeding. INR was ordered beforehand. Risks versus lo efits were discussed. Informed consent was signed in the office. These were ordered initially as diagnostic only due to insurance coverage. 5. Advanced interventional: I would not recommend diagnostic medial branch blocks with potential progression to radiofrequency denervation as his pain is widespread throughout the cervical paraspinals and trapezius. But also as I do not wish for him to undergo multiple procedures and have to hold his anticoagulation. 6. Other: They did have some questions about the seemingly lipoma versus cyst to the right of the C7 spinous process. If they would like this further evaluated we would need to order an ultrasound. This could also be further evaluated by his primary care provider. Lastly, they did discuss intensifying widespread pruritus. He does note that he has had some medication changes lately and this certainly could be a medication induced side effect. No other changes to personal hygiene products, laundry detergents, etcetera. I asked them to discuss this with their primary care provider for further investigation. All questions answered to the best of my abilities. FOLLOW-UP He is welcome to follow up with the Pain Medicine at any time. We could also do a virtual visit or telemedicine if that is easier. Total time: 30 minutes with >50% of the time spent in counseling and coordination. Care team: Today's care team was staffed with Dr. Yanez. PATIENT EDUCATION Ready to learn, no apparent learning barriers were identified; learning preferences included listening. Explained diagnosis and treatment plan; patient expressed understanding of the content. documented in this encounter Plan of Treatment Upcoming Encounters Date Type Department Care Team (Late st Contact Info) Description 02/21/2025 10:00 AM CDT Telemedicine Department of Palliative Care in [place], [place] [address] [place] [phone] Eneida Mendoza, YIN, C.N.P., M.S.N. [address] [place] [address] 03/13/2025 7:00 AM NEONATAL INTENSIVE CARE UNIT NURSE Lab Department of Laboratory Medicine and Pathology, [facility], in [place], [place] [address] [place] [address] Fanta Helms P.A.-C., M.S. [address] [place] [phone] 03/13/2025 8:00 AM NEONATAL INTENSIVE CARE UNIT NURSE Procedure visit Division of Pain Medicine in [place], [place] [address] [place] [phone] Chuy Carter M.D. [address] [place] [phone] Scheduled Orders Name Type Priority Associated Diagnoses Orde r Schedule Prothrombin Time (PT) Lab Routine Pain Myofascial Cervical 1 Occurrences starting 02/08/2025 until 05/11/2026 documented as of this encounter Visit Diagnoses Diagnosis Pain Myofascial Cervical- Primary Pain Neck Mechanical Spondylosis Cervical Without Myelopathy documented in this encounter Care Teams Set Painter Relationship Specialty Start Date End Date Elsewhere, Pcp PCP - General Family Medicine 11/27/20 Mary Ann Sol [address] [place] [address] Flue Gas Analyst Physician 01/17/19 documented as of this encounter
--- OUTSIDE RECORDS SUMMARY | 2025-02-08 12:52 | XMS_ITS | Encounter Summary ---
Author Organization [facility] Address [address] [place] [address] Care Team Providers Care Staff Veterinarian Name Role Phone Elsewhere, Pcp Primary Care Provider Unavailabl e Reason for Referral * Cardiovascular-Diagnostic (Routine) - Authorized Specialty Diagnoses / Procedures Referred By Contac t Referred To Contact Diagnoses Atrial Fibrillation Permanent (HCC) Supraventricular Tachycardia, Unspecified (HCC) Presyncope Procedures ECG Heart rhythm monitor (Holter) Mynor Mayo M.D. [address] [place] [address] Phone: tel: fax: [facility] Referral ID Status Reason Start Date Expiration Date V isits Requested Visits Authorized [id number] Authorized 02/07/2025 05/10/2026 1 1 Reason for Visit * Cardiovascular-Diagnostic (Routine) - Authorized Specialty Diagnoses / Procedures Referred By Contac t Referred To Contact Diagnoses Atrial Fibrillation Permanent (HCC) Supraventricular Tachycardia, Unspecified (HCC) Presyncope Procedures ECG Heart rhythm monitor (Holter) Mynor Mayo M.D. [address] [place] [address] Phone: tel: fax: [facility] Referral ID Status Reason Start Date Expiration Date V isits Requested Visits Authorized [id number] Authorized 02/07/2025 05/10/2026 1 1 Encounter Details Date Type Department Care Team (Latest Contact Info) Description 02/08/2025 12:52 PM CDT - 02/08/2025 11:59 PM CDT Hospital Encounter Department of Cardiovascular Diseases in [place], [place] [address] [place] [address] Mynor Mayo M.D. [address] [place] [address] Atrial Fibrillation Permanent (HCC); Supraventricular Tachycardia, Unspecified (HCC); Presyncope Discharge Disposition: Home or Self Care Social History Tobacco Use Types Packs/Day Years Used Date Smoking Tobacco: Former Cigarettes 1 50 0 05/04/1954 - 05/04/2004 Smokeless Tobacco: Never Alcohol Use Standard Drinks/Week Comments Yes 5 (1 standard drink = 0.6 oz pur e alcohol) [facility] Utilities Answer Date Recorded In the past 12 months has e [employer], gas, oil, or water [employer] threatened to shut off services in your [...] living situation today? I have a [facility] to live 09/21/2024 Education Answer Date Recorded What is the highest level of school you have completed or the highest degree you have received? Bachelor's degree (e.g., BA, AB, BS) 01/13/2019 Sex and Gender Information Value Date Recorded Sex Assigned at Male 08/22/2018 2:26 PM CDT Legal Sex Male 11:09 AM DX BOARD OPERATOR Gender Identity Male 08/22/2018 2:26 PM [...] CDT Telemedicine Department of Palliative Care in [place], [place] [address] [place] [phone] Eneida Mendoza, YIN, C.N.P., M.S.N. [address] [place] [phone] 03/13/2025 7:00 AM DX BOARD OPERATOR Lab Department of Laboratory Medicine and Pathology, [facility], in [place], [place] [address] [place] [phone] Fanta Helms P.A.-C., M.S. [address] [place] [phone] 03/13/2025 8:00 AM DX BOARD OPERATOR Procedure visit Division of Pain Medicine in [address] [phone] Chuy Carter M.D. [address] [place] [phone] documented as of this encounter Procedures Procedure Name Priority Date/Time Associated Diagnosis Comments HOLTER MONITOR - IN CLINIC FIRER AUTOMATIC STOKER Routine 02/09/2025 11:26 PM CDT Atrial Fibrillation Permanent (HCC) Supraventricular Tachycardia, Unspecified (HCC) Presyncope documented in this encounter Results * HOLTER MONITOR - IN CLINIC FIRER AUTOMATIC STOKER (02/09/2025 11:26 PM CDT) Min Heart Rate [...] 22h 32m duration INFOBION IC MOME AF [place] 100 percent INFOBIONIC MOME Longest AF Duration [...] 3. No patient triggered events were noted. Regasification Plant Operator: VALERIE Benoit A Holter monitor with cascade [...] 3. No patient triggered events were noted. Regasification Plant Operator: VALERIE Benoit A Holter monitor with cascade [...] CARDIAC SERVICES PROCED URES Final Result INFOBIONIC ARIANNE NA documented in this encounter Visit Diagnoses Diagnosis Atrial Fibrillation Permanent (HCC) Supraventricular Tachycardia, Unspecified (HCC) Presyncope documented in this encounter Care Teams Staff Veterinarian Relationship Specialty Start Date End Date Elsewhere, Pcp PCP - General Family Medicine 11/27/20 Mary Ann Sol [address] [place] [address] Manager Reporting Physician 01/17/19 documented as of this encounter
--- OUTSIDE RECORDS SUMMARY | 2025-02-10 02:20 | XMS_ITS | Encounter Summary ---
Author Organization [facility] Address [address] [place] [address] Care Team Providers Care Research Phlebotomist Name Role Phone Elsewhere, Pcp Primary Care Provider Unavailabl e Reason for Referral * Cardiovascular-Diagnostic (Routine) - Closed Specialty Diagnoses / Procedures Referred By Contac t Referred To Contact Diagnoses Supraventricular Tachycardia, Unspecified (HCC) Atrial Fibrillation Permanent (HCC) Tachycardia Syncope And Collapse Procedures ECG Ambulatory Real Time Cardiac Monitoring W[place] REMOTE 30 DAY ECG PHYS REV W[place] REMOTE 30 DAY ECG TECH SUPP Mynor Mayo M.D. [address] [place] [address] Phone: tel: fax: [facility] Referral ID Status Reason Start Date Expiration Date Visits Re quested Visits Authorized [id number] Closed 02/10/2025 05/13/2026 1 1 Reason for Visit * Cardiovascular-Diagnostic (Routine) - Closed Specialty Diagnoses / Procedures Referred By Contac t Referred To Contact Diagnoses Supraventricular Tachycardia, Unspecified (HCC) Atrial Fibrillation Permanent (HCC) Tachycardia Syncope And Collapse Procedures ECG Ambulatory Real Time Cardiac Monitoring WV REMOTE 30 DAY ECG PHYS REV W[place] REMOTE 30 DAY ECG TECH SUPP Mynor Mayo M.D. [address] [place] [address] Phone: tel: fax: [facility] Referral ID Status Reason Start Date Expiration Date Visits Re quested Visits Authorized [id number] Closed 02/10/2025 05/13/2026 1 1 Encounter Details Date Type Department Care Team (Latest Contact Info) Description 02/10/2025 2:20 AM CDT - 02/10/2025 11:59 PM CDT Hospital Encounter Division of Cardiovascular Diseases in [place], [place] [address] [place] [address] Mynor Mayo M.D. [address] [place] [address] Supraventricular Tachycardia, Unspecified (HCC); Atrial Fibrillation Permanent (HCC); Tachycardia; Syncope And Collapse Discharge Disposition: Home or Self Care Social History Tobacco Use Types Packs/Day Years Used Date Smoking Tobacco: Former Cigarettes 1 50 0 05/04/1954 - 05/04/2004 Smokeless Tobacco: Never Alcohol Use Standard Drinks/Week Comments Yes 5 (1 standard drink = 0.6 oz pur e alcohol) [facility] Utilities Answer Date Recorded In the past 12 months has [employer], gas, oil, or water [employer] threatened to shut off services in your [...] living situation today? I have a [facility] place to live 09/21/2024 Education Answer Date Recorded What is the highest level of school you have completed or the highest degree you have received? Bachelor's degree (e.g., BA, AB, BS) 01/13/2019 Sex and Gender Information Value Date Recorded Sex Assigned at Male 08/22/2018 2:26 PM CDT Legal Sex Male 11:09 AM RETIREMENT CONSULTANT Gender Identity Male 08/22/2018 2:26 PM [...] CDT Telemedicine Department of Palliative Care in [place], [place] [address] [place] [phone] Eneida Mendoza APRN, C.N.P., M.S.N. [address] [place] [phone] 03/13/2025 7:00 AM RETIREMENT CONSULTANT Lab Department of Laboratory Medicine and Pathology, [facility] in [place], [place] [address] [place] [phone] Fanta Helms P.A.-Courtney., M.S. [address] [place] [phone] 03/13/2025 8:00 AM RETIREMENT CONSULTANT Procedure visit Division of Pain Medicine in [address] [phone] Chuy Carter M.D. [address] [place] [phone] Pending Results Name Type Priority Associated Diagnoses Date /Time ECG Ambulatory Real Time Cardiac Monitoring Cardiac Services Routine Supraventricular Tachycardia, Unspecified (HCC) Atrial Fibrillation Permanent (HCC) Tachycardia Syncope And Collapse 02/10/2025 9:10 AM CDT documented as of this encounter Procedures Procedure Name Priority Date/Time Associated Diagnosis Comments ECG AMBULATORY REAL TIME CARDIAC MONITORING Routine 02/10/2025 9:10 AM CDT Supraventricular Tachycardia, Unspecified (HCC) Atrial Fibrillation Permanent (HCC) Tachycardia Syncope And Collapse documented in this encounter Visit Diagnoses Diagnosis Supraventricular Tachycardia, Unspecified (HCC) Atrial Fibrillation Permanent (HCC) Tachycardia Syncope And Collapse documented in this encounter Care Teams Research Phlebotomist Relationship Specialty Start Date End Date Elsewhere, Pcp PCP - General Family Medicine 11/27/20 Mary Ann Sol [address] [place] [address] It Infrastructure Manager Physician 01/17/19 documented as of this encounter
[2025-02-18] VITALS (73 sets, daily range): BP systolic 80–126; BP diastolic 43–73; PULSE 70–96; RESP 6–26; TEMP 36.3; O2SAT 80–96; BMI 23.5
--- OUTSIDE RECORDS SUMMARY | 2025-02-18 01:42 | XMS_ITS | Encounter Summary ---
Author Organization [facility] Address [address] [place] [address] Care Team Providers Care Personnel Quality Assurance Auditor Name Role Phone Elsewhere, Pcp Primary Care [...] Decline Functional Status Mynor Mayo M.D. [address] [place] [address] Phone: tel: fax: [facility] Referral ID Status Reason Start Date Expiration Date Visits Re quested Visits Authorized [id number] Closed 01/03/2025 07/05/2026 1 1 Encounter Details Date Type Department Care Team (Late st Contact Info) Description 01/03/2025 Orders Only Department of Cardiovascular Medicine in [place], [place] [address] [place] [phone] Mynor Mayo M.D. 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 I have a [facility] place to live 09/21/2024 Education Answer Date Recorded What is the highest level of school you have completed or the highest degree you have received? Bachelor's degree (e.g., BA, AB, BS) 01/13/2019 Sex and Gender Information Value Date Recorded Sex Assigned at Male 08/22/2018 2:26 PM CDT Legal Sex Male 11:09 AM SUPERVISOR [employer]OU[employer]ICAL TILE [employer]PENTERS Gender Identity Male 08/22/2018 2:26 PM CDT Sexual Orientation Straight 08/22/2018 2: 26 PM CDT documented as of this encounter Plan of Treatment Upcoming Encounters Date Type Department Care Team (Late st Contact Info) Description 02/21/2025 10:00 AM CDT Telemedicine Department of Palliative Care in [place], [place] [address] [place] [phone] Eneida Mendoza APRN, C.N.P., M.S.N. [address] [place] [phone] 03/13/2025 7:00 AM SUPERVISOR ACOU[employer]ICAL TILE CARPENTERS Lab Department of Laboratory Medicine and Pathology, [facility] in [place], [place] [address] [place] [phone] Fanta Helms P.A.-C., M.S. [address] [place] [phone] 03/13/2025 8:00 AM SUPERVISOR AC[employer]ICAL TILE CARPENTERS Procedure visit Division of Pain Medicine in [place], [place] [address] [place] [phone] Chuy Carter M.D. 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
--- OUTSIDE RECORDS SUMMARY | 2025-02-18 01:44 | XMS_ITS | Clinical Summary ---
Author Organization [facility] Address [address] [place] [address] Care Team Providers Care Sort Operations Supervisor Name Role Phone Elsewhere, Pcp Primary Care Provider Unavailabl e Source Comments Patient records contain information from all sites at [facility]. For routine questions regarding patient records, call [phone] during business hours, M-F 8:00 AM - 5:00 PM Central Time. Record requests for emergency care only can be directed to [phone] at any time.[facility] Allergies No known active allergies Medications * This document contains information received from the source organization and may not represent a complete record from that organization. sertraline (ZOLOFT) 100 mg tablet Take 1 tablet by mouth daily. 09/13/2014 Active amoxicillin (AMOXIL) 500 mg capsule Take 2,000 mg by mouth as needed (prior to dental procedures). Active metoprolol succinate (Toprol XL) 25 mg 24 hr tablet Take 1 tablet (25 mg total) by mouth daily. Do not crush or chew. 30 tablet 3 09/11/2024 Active acetaminophen (TylenoL) 325 mg tablet Take 650 mg by mouth every 4 (four) hours as needed for pain. Active torsemide (Demadex) 20 mg tablet Take 20 mg by mouth daily. Active DME OxygenIndicatio ns:Pneumonia DME Order - for details see Order Report 1 each 09/25/2024 Active warfarin (Jantoven) 10 mg tablet Take 0.5-1 tablets (5-10 mg total) by mouth daily. 10 mg on Thu/Thu/Thu and 5 mg all other days of the week Please take 5 mg on 09/25 and 10 mg on 09/26. Check INR on 09/27. 09/25/2024 Active empagliflozin (Jardiance) 25 mg tablet Take 0.5 tablets (12.5 mg total) by mouth daily before morning meal. 45 tablet 11/01/2024 1:52 PM CDT 09/26/2024 Active spironolactone (Aldactone) 25 mg tablet Take 0.5 tablets (12.5 mg total) by mouth daily. 15 tablet 11 10/11/2024 Active predniSONE (Deltasone) 5 mg tabletIndicatio ns:Gout Take 3 tablets (15 mg total) by mouth daily. 100 tablet 3 11/23/2024 Active metoprolol tartrate (Lopressor) 25 mg tablet Take 25 mg by mouth. 12/24/2023 Active sennosides 8.6 mg capsule Take 8.6 mg by mouth. 11/29/2024 Active cefdinir (Omnicef) 300 mg capsule Take 300 mg by mouth. 09/30/2024 Active Active Problems Problem Noted Date Diagnosed Date Chronic Kidney Disease (CKD) , Stage 3b Glomerular Filtration Rate (GFR) 30 To 44 01/10/2025 Gout 01/10/2025 Repeated Falls 01/10/2025 Anemia Of Chronic Renal Failure 01/10/2025 Hyperparathyroidism Renal Secondary 01/10/2025 Syncope 09/06/2024 Pulmonary Hypertension Due To Left [...] Ischemic Attack 07/10/2015 Overview (09/20/2021): Evaluated in [place] 06/2015 Replacement Heart Valve Tissue 09/24/2012 Overview (09/20/2021): [facility] 11/2014 Dr. Petar Clark Followed by Dr Alvarado in [place] yearly February Other Specified Extrapyramidal And Movement Diso rders 10/04/2009 Resolved Problems Problem Noted Date Diagnosed Date Resolved Date Gastroesophageal Reflux Disease NOS 04/03/2021 09/20/2021 Shortness Of Breath 03/15/2013 09/07/19 25 Other Abnormal Glucose 10/12/200809/06 Encounters * This document contains information received from the source organization and may not represent a complete record from that organization. Date Type Department Care Team Description 02/16/2025 Clinical Communication Department of Cardiovascular Medicine in [place], [place] [address] [place] [address] Mynor Mayo M.D. Remote Patient Monitoring (Alert Notification: Atrial Fibrillation) 02/10/2025 2:20 AM CDT - 02/10/2025 11:59 PM CDT Hospital Encounter Division of Cardiovascular Diseases in [place], [place] [address] [place] [address] Mynor Mayo M.D. Supraventricular Tachycardia, Unspecified (HCC); Atrial Fibrillation Permanent (HCC); Tachycardia; Syncope And Collapse Discharge Disposition: Home or Self Care 02/09/2025 Clinical Communication Department of Cardiovascular Medicine in [place], [place] [address] [place] [address] Mynor Mayo M.D. Remote Patient Monitoring (Alert Notification: Atrial Fibrillation) 02/08/2025 12:52 PM CDT - 02/08/2025 11:59 PM CDT Hospital Encounter Department of Cardiovascular Diseases in [place], [place] [address] [place] [address] Mynor Mayo M.D. Atrial Fibrillation Permanent (HCC); Supraventricular Tachycardia, Unspecified (HCC); Presyncope Discharge Disposition: Home or Self Care 02/08/2025 10:30 AM CDT Comprehensive Visit Division of Pain Medicine in [place], [place] [address] [place] [phone] Fanta Helms P.A.-C., M.S. Pain Myofascial Cervical (Primary Dx); Pain Neck Mechanical; Spondylosis Cervical Without Myelopathy 02/07/2025 2:00 PM CDT Office Visit Department of Cardiovascular Medicine in [place], [place] [address] [place] [address] Mynor Mayo M.D. 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 Pain Neck Mechanical Discharge Disposition: Home or Self Care 02/07/2025 9:15 AM CDT - 02/07/2025 11:18 AM CDT Hospital Encounter Department of Cardiovascular Diseases in [place], [place] [address] [place] [phone] Anthony Sahu M.D. 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 Discharge Disposition: Home or Self Care 01/26/2025 Clinical Communication Department of Cardiovascular Medicine in [address] [phone] Yara Godinez R.N. 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 Dyspnea On Exertion (Primary Dx); Palliative Care; Adjustment Disorder Mixed Reaction; Constipation; Advanced Care Planning; Fatigue; Insomnia 01/03/2025 Orders Only Department of Cardiovascular Medicine in [address] [phone] Mynor Mayo M.D. 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 Gout Acute Discharge Disposition: Home or Self Care 11/23/2024 1:00 PM CDT Comprehensive Visit Division of Rheumatology in [address] [phone] Ramón Villaseñor M.D. Gout (Primary Dx); Pain Neck Mechanical 11/23/2024 11:00 AM CDT Lab Department of Laboratory Medicine and Pathology, [address] [phone] Anthony Sahu M.D. 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 Gout Acute Discharge Disposition: Home or Self Care 11/22/2024 11:15 AM CDT Clinical Communication Virtual Review in [address] [phone] 11/21/2024 Clinical Communication Division of Rheumatology in [address] [phone] Ramón Villaseñor M.D. from Last 3 Months Immunizations Immunization Administration [...] e alcohol) [facility] Utilities Answer Date Recorded In the past 12 months has e [employer], gas, oil, or water [employer] threatened to shut off services in your [...] a [facility] to live 09/21/2024 Education Answer Date Recorded What is the highest level of school you have completed or the highest degree you have received? Bachelor's degree (e.g., BA, AB, BS) 01/13/2019 Sex and Gender Information Value Date Recorded Sex Assigned at Male 08/22/2018 2:26 PM CDT Legal Sex Male 11:09 AM [facility] Gender Identity Male 08/22/2018 2:26 PM CDT Sexual Orientation Straight 08/22/2018 2: 26 PM CDT Last Filed Vital Signs Vital Sign Reading Time Taken Comments Blood Pressure 104/53 02/07/2025 1:58 PM CDT Pulse 70 02/07/2025 1:58 PM CDT Temperature 36 C (96.8 F) 11/23/2024 12:56 PM CDT Respiratory Rate 22 09/25/2024 12:45 PM CDT Oxygen Saturation 92% 02/07/2025 2:10 PM CDT Inhaled Oxygen Concentration - - Weight 74.5 kg (164 lb 3.9 oz) 02/07/2025 1:58 P M CDT Height 177.1 cm (5' 9.72) 02/07/2025 1:58 PM CD T Body Mass Index 23.75 02/07/2025 1:58 PM CDT Plan of Treatment Upcoming Encounters Date Type Department Care Team (Late st Contact Info) Description 02/21/2025 10:00 AM CDT Telemedicine Department of Palliative Care in [place], [place] [address] [place] [phone] Eneida Mendoza APRN, C.N.P., M.S.N. [address] [place] [phone] 03/13/2025 7:00 AM [facility] Lab Department of Laboratory Medicine and Pathology, [facility], in [place], [place] [address] [place] [phone] Fanta Helms P.A.-C., M.S. [address] [place] [phone] 03/13/2025 8:00 AM [facility] Procedure visit Division of Pain Medicine in [place], [place] [address] [place] [phone] Chuy Carter M.D. [address] [place] [phone] Health Maintenance Due Date Last Done Comments Zoster Vaccines (2 of 3) 06/04/2006 04/09/2006 RSV vaccine - (32-36 weeks) or 50+ years (1 - 1-dose 75+ series) 11/10/2014 Depression Screening (Annual PHQ-2) 05/04/2024 DTaP,Tdap,and Td Vaccines (3 - Td or Tdap) 11/01/2024 11/01/2014, 11/01/2012, 11/24/2003, Additional history exists COVID-19 Vaccine ( season) 2025 05/10/2024, 04/23/2023, 02/11/2022, Additional history exists Influenza Vaccine (#1) 2025 , 02/20/2023, 02/11/2022, Additional history exists Creatinine Level (Kidney Function Test) 02/07/2026 02/07/2025, 11/23/2024, 10/11/2024, Additional history exists Potassium Level 02/07/2026 02/07/2025, 11/02, 10/11/2024, Additional history exists Sodium Level 02/07/2026 02/07/2025, 11/02, 10/11/2024, Additional history exists Pneumococcal vaccine (50+ years) Completed 08/07/2014, 02/01/2007, 02/17/2006 Fall Risk Screen (Annual) Completed 10/11/2024 IPV Vaccines Aged Out No longer eligi ble based on patient's age to complete this topic Medical Devices Implanted Type Area Capital Equipment Specialist Device Identifier Shelf Expiration Date Model / Serial / Lot Lead GuidCellabus Baron [id number] Implanted:11/02 (Quantity not on file) Cardiac Lead Other/Legacy - See Implant Description Guidant / [id number] / Description:LEAD Guidant Cor p [id number] Flextend Lead Guidant Baron [id number] Implanted:11/02 (Quantity not on file) Cardiac Lead Other/Legacy - See Implant Description Guidant / [id number] / Description:LEAD Guidant Cor p [id number] Flextend Valve Aortic Carbomedics 25mm - Chappell [id number] Implanted:Qty: 1 on 09/10/2007 Cardiac Valve Prosthesis Aorta Carbomedics Description:Device Manufactu rer - Carbomedics. Body Location - Other. Aortic. Device Status Text - [id number]. Ring Annuloflex Carbomedics 28mm - Chappell [id number] Implanted:Qty: 1 on 11/01/2014 Cardiac Valve Prosthesis Other/Legacy - See Implant Description Carbomedics Description:Device Manufactu rer - Carbomedics. Body Location - Other. Tricuspid. Device Status Text - [id number]. [place] Eddie Fuzzy 6 X 1 - Chappell [id number] Implanted:Qty: 1 on 09/10/2007 Mesh or Patch Impra Description:Device Manufactu rer - Impra. Device Status Text - [id number]. [place] Eddie Fuzzy 1 X 1 - Chappell [id number] Implanted:Qty: 2 on 09/10/2007 Mesh or Patch Consumer Health Advisers Description:Device Manufactu rer - DeRoyal. Device Status Text - [id number]. [facility] Data - [id number]. Ocular Lens Ocular Lens Bilateral: Eye Pacemaker [employer] [id number] Implanted:05/2015 (Quantity not on file) Pacemaker Other/Legacy - See Implant Description [employer] / [id number] / Description:Pacemaker [employer] [id number] ACCOLADE EL Hemashield Woven-Str 28 X 30 - Chappell [id number] Implanted:Qty: 1 on 09/10/2007 Vascular Graft Aorta Other/Legacy - See Implant Description Description:Device Manufactu rer - Meadox. Body Location - Other. Aortic. Device Status Text - [id number]. Explanted Type Area Capital Equipment Specialist Device Identifier Shelf Expiration Date Model / Serial / Lot Pacemaker Guidant Baron [id number] Implanted:11/29 (Quantity not on file) Explanted:01/02 (Quantity not on file) Pacemaker Chest Guidant / [id number] / Description:Pacemaker Guidan t Baron [id number] Procedures Procedure Name Priority Date/Time Associated Diagnosis Comments ECG AMBULATORY REAL TIME CARDIAC MONITORING Routine 02/10/2025 9:10 AM CDT Supraventricular Tachycardia, Unspecified (HCC) Atrial Fibrillation Permanent (HCC) Tachycardia Syncope And Collapse HOLTER MONITOR - IN CLINIC NON DESTRUCTIVE TESTING TECHNICIAN Routine 02/09/2025 11:26 PM CDT Atrial Fibrillation Permanent (HCC) Supraventricular Tachycardia, Unspecified (HCC) Presyncope DX CERVICAL SPINE 4-5 VIEWS RAD - Routine (most inpatients and all outpatients) 02/07/2025 11:50 AM CDT Pain Neck Mechanical (TTE) 2D ECHO DOPPLER COLOR Routine 02/07/2025 10:26 AM CDT 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) ECG Routine 02/07/2025 8:08 AM CDT 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) NT-PRO B-TYPE NATRIURETIC PEPTIDE (BNP), S Routine 02/07/2025 7:55 AM CDT 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) Dyspnea Multifactorial CBC WITH DIFFERENTIAL, B Routine 02/07/2025 7:55 AM CDT 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) COMPREHENSIVE METABOLIC PANEL, S/P Routine 02/07/2025 7:55 AM CDT 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) PUL HOME OVERNIGHT OXIMETRY Routine 02/06/2025 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) INTERFACED REMOTE DEVICE CHECK Routine 01/26/2025 9:29 AM CDT CREATININE, U Routine 12/15/2024 4:05 PM CDT Gout Acute COMPREHENSIVE METABOLIC PANEL, S/P Routine 11/23/2024 10:28 AM CDT Congestive Heart Failure (HCC) 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 No patient triggered events were noted. Project Development Coordinator: VALERIE Benoit A Holter monitor with cascade [...] 3. No patient triggered events were noted. Project Development Coordinator: VALERIE Benoit A Holter monitor with cascade [...] PROCED URES Final Result INFOBIONIC MOME NA * DX Cervical Spine 4-5 Views (02/07/2025 [...] extension.Vascular calcifications. Sternotomy. Pacemaker. Ramón Villaseñor M.D. [facility] DIAGNOSTIC IMAGING PROC EDURES Final Result * (TTE) 2D ECHO DOPPLER COLOR (02/07/2025 [...] the complete report, see the Order-Level Documents. Anthony Sahu M.D. CV ECHO PROCEDURES Edited R esult - Final * ECG 12 Lead (02/07/2025 8:08 AM CDT) Ventricular Rate ECG/Min 71 BPM MUSE QRSD Interval 174 ms MUSE QT Interval 490 ms MUSE QTC Interval 532 ms MUSE P [place] -53 degrees MUSE R [place] -70 degrees MUSE T Wave [place] 107 degrees MUSE 02/07/2025 8:08 AM CDT 02/07/2025 8:24 AM CDT Impressions MUSE - 02/07/2025 8:24 AM CDT Ventricular-paced rhythm Atrial fibrillation with premature ventricular or aberrantly conducted complexes singly Prolonged QT When compared with ECG of 20-Sep-2024 13:00, Premature ventricular or aberrantly conducted complexes are now present Reviewed by VALERIE Pfeiffer Narrative Procedure Note Candido Torre M.D. - 02/07/2025 IMPRESSION: Ventricular-paced rhythm Atrial fibrillation with premature ventricular or aberrantly conducted complexes singly Prolonged QT When compared with ECG of 20-Sep-2024 13:00, Premature ventricular or aberrantly conducted complexes are now present Reviewed by VALERIE Pfeiffer Anthony Sahu M.D. ECG ORDERABLES Final Resul t MUSE NA * (ABNORMAL) NT-Pro B-Type Natriuretic Peptide (BNP) (02/07/2025 7:55 AM CDT) [facility] NT-Pro BNP 5162(H) <=540 pg/mL 02/07/2025 8:59 [...] M.D. LAB [place] [address], [facility] [place] [address] * (ABNORMAL) CBC with Differential, Blood (02/07/2025 7:55 AM CDT) [facility] Hemoglobin 8.7(L) 13.2 - 16.6 g/dL 02/07/2025 [...] 7:55 AM CDT 02/07/2025 8:12 AM CDT Anthony Sahu M.D. LAB BLOOD ADD-ON Final Resu lt [facility] [address] [place] [address], [facility] DTL [facility] [address] [place] [address] [facility] [address] [place] [address] * (ABNORMAL) Comprehensive Metabolic Panel (02/07/2025 7:55 AM CDT) Only the most recent of2 resultswithin the time period is included. [facility] Potassium, S 4.7 3.6 - [...] M.D. LAB BLOOD ADD-ON Final Resu lt [facility] [address] [place] [address], [place] DTL [facility] [address] [place] [address] * Home Overnight Oximetry (02/06/2025) 02/06/2025 Narrative VALENTÍN LOPEZ - 02/07/2025 11:54 AM CDT Procedure: Overnight oximetry was performed on 1.5L/min. The patient stated they did consume alcohol and did not take sedative medication on the night of the study, and stated quality of sleep was worse than usual. Dumas Sleepiness Scale was 11. The time spent <89% was 11.7 minutes, with a 4% desaturation index of 9.3. Impression: Abnormal overnight oximetry. The increased frequency of oscillatory desaturations suggests sleep-disordered breathing. The increased Dumas Sleepiness Scale indicates excessive daytime sleepiness. us Anthony Sahu M.D. PFT ORDERABLES Final Resul t VALENTÍN MAYEN EAP * CAR CARDIAC DEVICE INTERROGATION (01/26/2025 9:29 AM CDT) Date Time Interrogation Session [id number] [facility] Type Interrogation Session Remote Scheduled [facility] Implantable Pulse Generator Capital Equipment Specialist [employer] [facility] Implantable Pulse Generator Type Pacemaker [facility] Implantable Pulse Generator Model L321 [facility] Implantable Pulse Generator Serial Number [id number] [facility] Implantable Pulse Generator Implant Date 20160103 [facility] Battery Remaining Percentage 70.00 % [facility] Battery Remaining Longevity 72.0 mo [facility] Battery Status Beginning of Service [facility] Abelino Statistic RA Percent Paced 0.00 [facility] Abelino Statistic RV Percent Paced 95.00 [facility] Lead Channel Setting Sensing Sensitivity 0.15 [facility] Lead Channel Measurements Date and Time 20250125 [facility] Lead Channel Sensing Intrinsic Amplitude 25.000 [facility] Lead Channel Setting Sensing Sensitivity 4.00 [facility] Lead Channel Impedance Value 1,273 [facility] Lead Channel Pacing Threshold Amplitude 2.000 [facility] Lead Channel Pacing Threshold Pulse Width 0.4 [facility] Lead Channel Measurements Date and Time 20250124 [facility] Lead Channel Setting Pacing Amplitude 2.400 [facility] Lead Channel Setting Pacing Pulse Width 0.4 [facility] Abelino Setting Mode (NBG Code) VVIR [facility] Abelino Setting Lower Rate Limit 70 [facility] Abelino Setting AT Mode Switch Rate 170 [facility] Abelino Setting Maximum Sensor Rate 110 [facility] Lead Channel Setting Sensing Polarity Bipolar [facility] Lead Channel Setting Pacing Polarity Bipolar [facility] Lead Channel Pacing Threshold Polarity Bipolar [facility] Zone Setting Type Category VT [facility] Murj Rate 1 130 [facility] Zone Setting Status Monitor F[facility] Murj Zone ID 1 [facility] Implantable Lead Capital Equipment Specialist Guidant [facility] Implantable Lead Model 4086 Flextend [facility] Implantable Lead Location Right Atrium [facility] Implantable Lead Connection Status Connected [facility] Implantable Lead Serial Number [id number] [facility] Implantable Lead Implant Date [id number] [facility] Implantable Lead Special Function Lead length: 45.00 cm [facility] Implantable Lead Capital Equipment Specialist Guidant [facility] Implantable Lead Model 4087 Flextend [facility] Implantable Lead Location Right Ventricle [facility] Implantable Lead Connection Status Connected [facility] Implantable Lead Serial Number [id number] [facility] Implantable Lead Implant Date [id number] [facility] Implantable Lead Special Function [...] reviewed * Presenting rhythm reviewed and reports CASH CONTROLLER at 70 bpm. * Heart Rate Histograms [...] reviewed * Presenting rhythm reviewed and reports CASH CONTROLLER at 70 bpm. * Heart Rate Histograms [...] updated. Patient has appt to see him [id number]. Plan: This patient underwent device interrogation. I agree that the deviceinterrogation was medically indicated to provide appropriate care andcontinue routine device interrogations as indicated. Encounter Summary: This report includes 1 transmission that was receivedon 2025-01-26. Battery, lead impedance, sensing amplitude and pacingthreshold data was reviewed. us Lena Luna M.D. CV IMPLANTABLE CARDIAC DEVICE Final Result * Creatinine, 24 hour, Urine (12/15/2024 4:05 PM CDT) Creatinine, 24 HR, U 1078 930 - 2955 mg/24 h 12/16/2024 1:28 PM CDT DTL Collection Duration 24 h 12/16/2024 10:23 AM CDT DTL Urine Volume 2764 mL 12/16/2024 12:16 PM CDT DTL Creatinine Conc 39 mg/dL 1:28 PM CDT DTL Urine (Urine, 24 Hours) 12/15/2024 4:05 PM CDT 12/16/2024 12:16 PM CDT us Anthony Sahu M.D. LAB URINE ORDERABLES Final Result Performing Organization Address [facility] Co de Phone Number [facility] [address] 200 [place] [address] * (ABNORMAL) Uric Acid (11/23/2024 10:28 AM CDT) Uric Acid, S 8.7(H) 3.7 - 8.0 mg/dL 11/23/2024 12:01 PM CDT DTL Blood (Blood, Venous) 11/23/2024 10:28 AM CDT 11/23/2024 10:58 AM CDT us Anthony Sahu M.D. LAB BLOOD ADD-ON Final Resu lt Performing Organization Address [facility] Co de Phone Number [facility] 200 [place] [address] * DX Foot Left 3+ Views (11/23/2024 10:22 AM CDT) Anatomical Region Laterality Modality Lower Extremity, Foot, Muscu loskeletal RST LOS, Musculoskeletal ARZ LOS, Muskuloskeletal FLA LOS Left Digit al Radiography Impressions 11/23/2024 10:38 AM CDT Degenerative arthritis left first MTP joint but no definite erosions to suggest gout. No soft tissue mineralized tophi identified. Vascular calcification. 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 Narrative 11/23/2024 10:38 AM CDT EXAM: DX FOOT LEFT 3+ VIEWS Procedure Note Dianne Malik M.B., Ch.B. - 11/23/2024 EXAM: DX FOOT LEFT 3+ VIEWS IMPRESSION: Degenerative arthritis left first MTP joint but no definite erosions tosuggest gout. No soft tissue mineralized tophi identified. Vascularcalcification. 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 Anthony Sahu M.D. 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 See document viewer. * DNR/DNI (Latest Code Status on File) Date Activated Date Inactivated Comments 01/06/2025 2:48 PM Question Answer Comments DNR/DNI (Do Not Resuscitate/Do Not Intubate): Di scussed-Patient * Full Code Date Activated Date Inactivated Comments 09/20/2024 11:59 PM 09/25/2024 5:23 PM Question Answer Comments Full Code: Discussed * Full Code Date Activated Date Inactivated Comments 09/06/2024 5:50 AM 09/10/2024 4:13 PM Question Answer Comments Full Code: Discussed * Full Code Date Activated Date Inactivated Comments 11/25/2020 4:47 AM 11/29/2020 6:51 PM Question Answer Comments Full Code: Discussed Healthcare Agents on File Name Relationship Healthcare Agent [facility] p Communication Lizeth Gross Spouse Health Care Agent Care Teams Sort Operations Supervisor Relationship Specialty Start Date End Date Elsewhere, Pcp PCP - General Family Medicine 11/27/20 Mary Ann Sol [address] [place] [phone] Switchboard Operator Physician 01/17/19
--- OUTSIDE RECORDS SUMMARY | 2025-02-18 01:44 | XMS_ITS | Encounter Summary ---
Author Organization [facility] Address [address] [place] [address] Care Team Providers Care Senior Backup Administrator Name Role Phone Elsewhere, Pcp Primary Care Provider Unavailabl e Encounter Details Date Type Department Care Team (Latest Contact Info) Description 09/13/2024 Intake [facility] Social History Tobacco Use Types Packs/Day Years Used Date Smoking Tobacco: Former Cigarettes 1 50 0 [birth year]/04/1954 - 05/04/2004 Smokeless Tobacco: Never Alcohol Use Standard Drinks/Week Comments Yes 5 (1 standard drink = 0.6 oz pur e alcohol) [facility] Utilities Answer Date Recorded In the past 12 months has e [employer], gas, oil, or water [employer] threatened to shut off services in your [...] by your partner or ex-partner? No 09/06/2024 Hunger Vital Sign Answer Date Recorded Within [...] things needed for daily living? No 09/06/2024 Housing Stability Answer Date Recorded What is your living situation today? I have a [facility] place to live 09/06/2024 Education Answer Date Recorded What is the highest level of school you have completed or the highest degree you have received? Bachelor's degree (e.g., BA, AB, BS) 01/13/2019 Sex and Gender Information Value Date Recorded Sex Assigned at Male 08/22/2018 2:26 PM CDT Legal Sex Male 11:09 AM PRECISION MACHINING INSTRUCTOR Gender Identity Male 08/22/2018 2:26 PM CDT Sexual Orientation Straight 08/22/2018 2: 26 PM CDT documented as of this encounter Plan of Treatment Upcoming Encounters Date Type Department Care Team (Late st Contact Info) Description 02/21/2025 10:00 AM CDT Telemedicine Department of Palliative Care in [place], [place] [address] [place] [phone] Eneida Mendoza, YIN, C.N.P., M.S.N. [address] [place] [phone] 03/13/2025 7:00 AM PRECISION MACHINING INSTRUCTOR Lab Department of Laboratory Medicine and Pathology, [facility], in [place], [place] [address] [place] [phone] Fanta Helms P.A.-C., M.S. [address] [place] [phone] 03/13/2025 8:00 AM PRECISION MACHINING INSTRUCTOR Procedure visit Division of Pain Medicine in [place], [place] [address] [place] [address] Chuy Carter M.D. [address] [place] [address] documented as of this encounter Visit Diagnoses Not on filedocumented in this encounter Additional Health Concerns Infection Onset Date Last Indicated Resolved Time COVID19 Pending 09/22/2024 09/22/2024 09/22/2024 1 :35 PM CDT documented as of this encounter Care Teams Senior Backup Administrator Relationship Specialty Start Date End Date Elsewhere, Pcp PCP - General Family Medicine 11/27/20 Mary Ann Sol [address] [place] [phone] Billing Adjudicator Physician 01/17/19 documented as of this encounter
--- OUTSIDE RECORDS SUMMARY | 2025-02-18 01:44 | XMS_ITS | Clinical Summary ---
Author Organization [facility] Address [address] [place] [address] Care Team Providers Care Camp Maintenance Supervisor Name Role Phone Pcp, No Primary Care Provider Unavailabl e Allergies No known active allergies Medications metoprolol succinate 25 mg Sustained-Releas e tablet Take 25 mg by mouth once daily in the evening. Active sertraline 100 mg tablet Take 100 mg by mouth once daily. Active torsemide 20 mg tablet Take 20 mg by mouth once daily. Active warfarin 10 mg tablet Take by mouth once daily. 10 mg = MWF 5 mg = SuTuThSa Active acetaminophen 325 mg tabletIndication s:Hematoma of rectus sheath, initial encounter Take 2 Tablets (650 mg) by mouth every 4 hours if needed for Pain (For mild pain.). Max acetaminophen dose: 4000mg in 24 hrs. 09/19/19 25 Active oxyCODONE 5 mg immediate release tabletIndication s:Hematoma of rectus sheath, initial encounter Take 1 Tablet (5 mg) by mouth every 4 hours if needed for Pain. 10 Tablet 09/18/2024 2:57 PM CDT 09/19/19 25 Active sennosides 8.6 mg tabletIndication s:Constipation, unspecified constipation type Take 1-2 Tablets (8.6-17.2 mg) by mouth two times daily. 30 Tablet 09/18/2024 2:57 PM CDT 09/19/19 25 Active enoxaparin 80 mg/0.8 mL injectionIndicat ions:S/P aortic valve replacement with metallic valve Inject 80 mg subcutaneous one time if needed (Only take if INR < 2 on 09/19) for up to 2 doses. This is an as needed dose of Lovenox to be taken 09/19 only if INR <2. Please do not take if INR >2. 1.6 mL 09/18/2024 5:28 PM CDT 09/19/19 25 Active Active Problems Problem Noted Date Diagnosed Date Rectus sheath hematoma 09/13/2024 Pulmonary hypertension due to left heart disease 09/06/2024 Mild chronic obstructive pulmonary disease 09/20 Congestive heart failure 09/20/2021 Gastroesophageal reflux disease without esophagi tis 03/26/2021 detention (current) use of anticoagulants 2018 Anemia 01/17/2019 Presence of prosthetic heart valve 01/01/2018 Adjustment disorder with depressed mood 03/05/20 17 Hypercholesterolemia 07/10/2015 Transient ischemic attack 07/10/2015 Overview (09/13/2024): Evaluated in [place] 06/2015 Status post tricuspid valve replacement 11/17/19 15 Overview (09/13/2024): [facility] 11/2014 Dr. Petar Clark S/P aortic valve replacement with metallic valve 09/24/2012 Overview (09/13/2024): Followed by Dr Alvarado in [place] yearly February Permanent atrial fibrillation 06/07/2008 Social History Tobacco Use Types Packs/Day Years Used Date Smoking Tobacco: Never Smokeless Tobacco: Never Tobacco Cessation:Counseling Given: Not Answered Alcohol Use Standard Drinks/Week Comments Yes 5 (1 standard drink = 0.6 oz pur e alcohol) per week Social Connections Answer Date Recorded Do you often feel lonely or isolated from those around you? 0 09/14/2024 Financial Resource Strain Answer Date R ecorded Difficulty of Paying Living Expenses 3 09/14/2024 Difficulty of Paying Living Expenses Not on file 09/14/2024 Food Insecurity Answer Date Recorded Do you worry your food will run out before you are able to buy more? 1 09/14/2024 Transportation Needs Answer Date Record ed Does lack of transportation keep you from medica l appointments? 1 09/14/2024 Does lack of transportation keep you from work, meetings or getting things that you need? 1 09/14/2024 Housing Stability Answer Date Recorded What is your housing situation today? 1 09/14/2024 Interpersonal Safety Answer Date Record ed Are you being hit, kicked, p ushed or yelled at (see row info)? No 09/13/2024 Interpersonal Safety Abuse 12 - 18 Not on file 09/13/2024 Interpersonal Safety Ambulatory Vulnerability No t on file 09/13/2024 Utilities Answer Date Recorded Do you have trouble paying f or utilities (for example, heat, electricity, water, phone)? 1 09/14/2024 Sex and Gender Information Value Date Recorded Sex Assigned at Not on file Legal Sex Male 2:09 PM CDT Gender Identity Not on file Sexual Orientation Not on file Obstetrics History Last Filed Vital Signs Vital Sign Reading Time Taken Comments Blood Pressure 105/53 09/18/2024 2:41 PM CDT Pulse 94 09/18/2024 3:40 PM CDT Temperature 36.9 C (98.4 F) 09/18/2024 7:47 AM CDT Respiratory Rate 16 09/18/2024 7:47 AM CDT Oxygen Saturation 92% 09/18/2024 7:47 AM CDT Inhaled Oxygen Concentration - - Weight 74.3 kg (163 lb 14.4 oz) 09/17/2024 6:07 AM CDT Height 177.8 cm (5' 10) 09/13/2024 12: 18 PM CDT Body Mass Index 23.52 09/13/2024 12:18 PM CDT Plan of Treatment Health Maintenance Due Date Last Done Comments Tetanus booster 11/10/1950 Depression screening for age 12+ 1951 BMI (ht and wt on same day) for age 18+ 11/10/1957 Pneumococcal series for age 50+ (1 of 2 - PCV) 11/10/1958 Zoster (shingles) series for age 50+ (1 of 2) 11/10/1989 RSV vaccine for adults or (1 - 1-dose 75+ series) 11/10/2014 COVID-19 vaccine series ( season) 2025 05/10/2024, 04/23/2023, 02/11/2022, Additional history exists Influenza Vaccine (#1) 2025 Hepatitis B series for 19+ Aged Out N o longer eligible based on patient's age to complete this topic Insurance [employer] Simple Admit MR PB ONLY MEDICA PRIME SOLUTION HB MEDICARE PART B HB ONLY MEDICARE PART A HB ONLY Advance Directives * Full Code (Latest Code Status on File) Date Activated Date Inactivated Comments 09/13/2024 3:25 PM 09/18/2024 8:29 PM Question Answer Comments Code Status Discussion: Reviewed Preferences Care Teams Camp Maintenance Supervisor Relationship Specialty Start Date End Date Pcp, No . PCP - General 09/13/24
--- OUTSIDE RECORDS SUMMARY | 2025-02-18 01:44 | XMS_ITS | Encounter Summary ---
Author Organization [facility] Address [address] [place] [address] Care Team Providers Care Picker And Packer Name Role Phone Elsewhere, Pcp Primary Care Provider Unavailabl e Reason for Visit * Reason Onset Date Comments Remote Patient Monitoring 02/09/2025 Alert Notification: Atrial Fibrillation Encounter Details Date Type Department Care Team (Latest Contact Info) Description 02/09/2025 Clinical Communication Department of Cardiovascular Medicine in [place], [place] [address] [place] [phone] Mynor Mayo M.D. [address] [place] [phone] Remote Patient Monitoring (Alert Notification: Atrial Fibrillation) Social History Tobacco Use Types Packs/Day Years Used Date Smoking Tobacco: Former Cigarettes 1 50 0 [birth year]/04/1954 - 05/04/2004 Smokeless Tobacco: Never Alcohol Use Standard Drinks/Week Comments Yes 5 (1 standard drink = 0.6 oz pur e alcohol) [facility] Utilities Answer Date Recorded In the past 12 months has [facility] electric, gas, oil, or water company threatened [...] your living situation today? I have a [facility] place to live 09/21/2024 Education Answer Date Recorded What is the highest level of school you have completed or the highest degree you have received? Bachelor's degree (e.g., BA, AB, BS) 01/13/2019 Sex and Gender Information Value Date Recorded Sex Assigned at Male 08/22/2018 2:26 PM CDT Legal Sex Male 11:09 AM GLUE MACHINE OPERATOR Gender Identity Male 08/22/2018 2:26 PM CDT Sexual Orientation Straight 08/22/2018 2: 26 PM CDT documented as of this encounter Miscellaneous Notes * Telephone Encounter - Cassia Glover CRAT - 02/09/2025 11:45 PM CDT Notification Result: Holter result for Sam Gross showed atrial fibrillation on 02/08/2025 at 1:07 PM. documented in this encounter Plan of Treatment Upcoming Encounters Date Type Department Care Team (Late st Contact Info) Description 02/21/2025 10:00 AM CDT Telemedicine Department of Palliative Care in [place], [place] [address] [place] [address] Eneida Mendoza APRN, C.N.P., M.S.N. [address] [place] [phone] 03/13/2025 7:00 AM GLUE MACHINE OPERATOR Lab Department of Laboratory Medicine and Pathology, [facility] in [place], [place] [address] [place] [address] Fanta Helms P.A.-C., M.S. [address] [place] [phone] 03/13/2025 8:00 AM GLUE MACHINE OPERATOR Procedure visit Division of Pain Medicine in [place], [place] [address] [place] [phone] Chuy Carter M.D. [address] [place] [phone] documented as of this encounter Visit Diagnoses Not on filedocumented in this encounter Care Teams Picker And Packer Relationship Specialty Start Date End Date Elsewhere, Pcp PCP - General Family Medicine 11/27/20 Mary Ann Sol [address] [place] [address] Application Security Specialist Physician 01/17/19 documented as of this encounter
--- OUTSIDE RECORDS SUMMARY | 2025-02-18 01:44 | XMS_ITS | Encounter Summary ---
Author Organization [facility] Address [address] [place] [address] Care Team Providers Care Warehouse Selector Name Role Phone Elsewhere, Pcp Primary Care [...] 0.6 oz pur e alcohol) [facility] Utilities Answer Date Recorded In the past 12 months has e [employer], gas, oil, or water [employer] threatened to shut off services in your [...] your living situation today? I have a [facility] place to live 09/06/2024 Education Answer Date Recorded What is the highest level of school you have completed or the highest degree you have received? Bachelor's degree (e.g., BA, AB, BS) 01/13/2019 Sex and Gender Information Value Date Recorded Sex Assigned at Male 08/22/2018 2:26 PM CDT Legal Sex Male 11:09 AM VEHICLE CHECK IN CLERK Gender Identity Male 08/22/2018 2:26 PM CDT Sexual Orientation Straight 08/22/2018 2: 26 PM CDT documented as of this encounter Plan of Treatment Upcoming Encounters Date Type Department Care Team (Late st Contact Info) Description 02/21/2025 10:00 AM CDT Telemedicine Department of Palliative Care in [place], [place] [address] [place] [phone] Eneida Mendoza, YIN, C.N.P., M.S.N. [address] [place] [phone] 03/13/2025 7:00 AM VEHICLE CHECK IN CLERK Lab Department of Laboratory Medicine and Pathology, [facility], in [place], [place] [address] [place] [phone] Fanta Helms P.A.-C., M.S. [address] [place] [phone] 03/13/2025 8:00 AM VEHICLE CHECK IN CLERK Procedure visit Division of Pain Medicine in [place], [place] [address] [place] [address] Chuy Carter M.D. [address] [place] [phone] documented as of this encounter Visit Diagnoses Not on filedocumented in this encounter Additional Health Concerns Infection Onset Date Last Indicated Resolved Time COVID19 Pending 09/22/2024 09/22/2024 09/22/2024 1 :35 PM CDT documented as of this encounter Care Teams Warehouse Selector Relationship Specialty Start Date End Date Elsewhere, Pcp PCP - General Family Medicine 11/27/20 Mary Ann Sol [address] [place] [address] Diesel Technology Instructor Physician 01/17/19 documented as of this encounter
--- OUTSIDE RECORDS SUMMARY | 2025-02-18 01:44 | XMS_ITS | Encounter Summary ---
Author Organization [facility] Address [address] [place] [address] Care Team Providers Care Industrial Truck Driver Name Role Phone Elsewhere, Pcp Primary Care Provider Unavailabl e Reason for Visit * Reason Onset Date Comments Remote Patient Monitoring 02/16/2025 Alert Notification: Atrial Fibrillation Encounter Details Date Type Department Care Team (Latest Contact Info) Description 02/16/2025 Clinical Communication Department of Cardiovascular Medicine in [place], [place] [address] [place] [address] Mynor Mayo M.D. [address] [place] [address] Remote Patient Monitoring (Alert Notification: Atrial Fibrillation) Social History Tobacco Use Types Packs/Day Years Used Date Smoking Tobacco: Former Cigarettes 1 50 0 05/04/1954 - 05/04/2004 Smokeless Tobacco: Never Alcohol Use Standard Drinks/Week Comments Yes 5 (1 standard drink = 0.6 oz pur e alcohol) [facility] Utilities Answer Date Recorded In the past 12 months has [facility] electric, gas, oil, or water company [...] your living situation today? I have a [facility] place to live 09/21/2024 Education Answer Date Recorded What is the highest level of school you have completed or the highest degree you have received? Bachelor's degree (e.g., BA, AB, BS) 01/13/2019 Sex and Gender Information Value Date Recorded Sex Assigned at Male 08/22/2018 2:26 PM CDT Legal Sex Male 11:09 AM VAULT WORKER Gender Identity Male 08/22/2018 2:26 PM CDT Sexual Orientation Straight 08/22/2018 2: 26 PM CDT documented as of this encounter Miscellaneous Notes * Telephone Encounter - Milind Perez CRAT - 02/16/2025 10:11 AM CDT Cardiac Ambulatory Monitoring - Alert Criteria Notification These results are preliminary pending review by a Ncr Operator. Title: Alert Notification An event was identified for Sma Gross that met the alert criteria of ATRIAL FIBRILLATION >= 30 seconds (ONSET NEW). This may have been previously diagnosed. This event occurred on 02/15/2025 at 07:21 PM (VAULT WORKER) and is viewable in the cardiac ambulatory monitoring portal. At this time, the patient did not activate the symptom button on the monitoring device. PLEASE REPLY TO THIS MESSAGE IF: You would like to change the alert parameters to avoid recurrent alerts for the same arrhythmia or adjust other alert criteria. The findings you have received are sufficient for diagnosis and you would like to terminate the monitoring service and have the patient return the device. For questions, please reply to this notification or call us at [phone] ([phone]). documented in this encounter Plan of Treatment Upcoming Encounters Date Type Department Care Team (Late st Contact Info) Description 02/21/2025 10:00 AM CDT Telemedicine Department of Palliative Care in [address] [phone] Eneida Mendoza APRN, C.N.P., M.S.N. [address] [place] [phone] 03/13/2025 7:00 AM VAULT WORKER Lab Department of Laboratory Medicine and Pathology, [facility], in [place], [place] [address] [place] [phone] Fanta Helms P.A.-C., M.S. [address] [place] [phone] 03/13/2025 8:00 AM VAULT WORKER Procedure visit Division of Pain Medicine in [address] [phone] Chuy Carter M.D. [address] [place] [phone] documented as of this encounter Visit Diagnoses Not on filedocumented in this encounter Care Teams Industrial Truck Driver Relationship Specialty Start Date End Date Elsewhere, Pcp PCP - General Family Medicine 11/27/20 Mary Ann Sol [address] [place] [address] Sand Carrier Physician 01/17/19 documented as of this encounter
--- OUTSIDE RECORDS SUMMARY | 2025-02-18 01:44 | XMS_ITS | Encounter Summary ---
Author Organization [facility] Address [address] [place] [address] Care Team Providers Care Job Placement Specialist Name Role Phone Elsewhere, Pcp Primary Care Provider Unavailabl e Reason for Visit * Reason Onset Date Comments Patient update-HVR events on pacemaker Encounter Details Date Type Department Care Team (Latest Contact Info) Description 01/26/2025 Clinical Communication Department of Cardiovascular Medicine in [place], [place] [address] [place] [phone] Yara Godinez, R.N. Patient update-HVR events on pacemaker Social History Tobacco Use Types Packs/Day Years Used Date Smoking Tobacco: Former Cigarettes 1 50 0 05/04/1954 - 05/04/2004 Smokeless Tobacco: Never Alcohol Use Standard Drinks/Week Comments Yes 5 (1 standard drink = 0.6 oz pur e alcohol) [facility] Utilities Answer Date Recorded In the past 12 months has [facility] [employer] gas, oil, or water [employer] threatened to shut off services in your [...] your living situation today? [facility] 09/21/2024 Education Answer Date Recorded What is the highest level of school you have completed or the highest degree you have received? Bachelor's degree (e.g., BA, AB, BS) 01/13/2019 Sex and Gender Information Value Date Recorded Sex Assigned at Male 08/22/2018 2:26 PM CDT Legal Sex Male 11:09 AM [employer]PER[employer] Gender Identity Male 08/22/2018 2:26 PM CDT Sexual Orientation Straight 08/22/2018 2: 26 PM CDT documented as of this encounter Miscellaneous Notes * Telephone Encounter - Yara Godinez, RArmandoN. - 01/26/2025 9:21 AM CDT Lynn Mayo- I am reviewing the most recent remote from Sam, with who you have a consult with on 02-07-2025. In reviewing his most recent remote, it is noted he has had more ventricular fast rates. There has been 12 since last remote f/u on 10-27-2024. EGMs available report 14-18 beats at 143-147 bpm. Events with no EGMs report rates up to 185 bpm. The patient has a h/o dependency at times, as well as a slow ventricular escape associated with AF. Cannot r/o NSVT. I note he has reported episodes of dizziness, feeling faint and has a h/o falls. Unable to speak to him today to inquire if he has had any such symptoms correlating to events recorded by pacemaker. These have been previously noted as well. Just wanted to update you. Thanks. Yara Godinez RN documented in this encounter Plan of Treatment Upcoming Encounters Date Type Department Care Team (Late st Contact Info) Description 02/21/2025 10:00 AM CDT Telemedicine Department of Palliative Care in [place], [place] [address] [place] [phone] Eneida Mendoza, YIN, C.N.P., M.S.N. [address] [place] [phone] 03/13/2025 7:00 AM SUPERVISOR PACKING Lab Department of Laboratory Medicine and Pathology, [facility] in [place], [place] [address] [place] [phone] Fanta Helms P.A.-C., M.S. [address] [place] [phone] 03/13/2025 8:00 AM [employer]PERVIS[employer] Procedure visit Division of Pain Medicine in [place], [place] [address] [place] [phone] Chuy Carter M.D. [address] [place] [phone] documented as of this encounter Visit Diagnoses Not on filedocumented in this encounter Care Teams Job Placement Specialist Relationship Specialty Start Date End Date Elsewhere, Pcp PCP - General Family Medicine 11/27/20 Mary Ann Sol [address] [place] [address] Programmer Analyst Physician 01/17/19 documented as of this encounter
--- NOTE | 2025-02-18 01:57 | CRLHL7_ITS ---
For Patients: As a result of the Century Cures Act, medical imaging exams and procedure reports are released immediately into your electronic medical record. You may view this report before your referring provider. If you have questions, please contact your health care provider. INDICATION: Right leg weakness. Concern for stroke. TECHNIQUE: CT head without contrast. COMPARISON: CT head 09/05/2024. FINDINGS: No acute intracranial hemorrhage. No CT evidence of acute territorial infarct. No hydrocephalus or midline shift. Stable parenchymal volume loss with chronic microvascular ischemic changes. Paranasal sinuses and mastoid air cells are well ventilated. No acute calvarial fracture. IMPRESSION: No acute intracranial abnormality. Please note that all CT scans at this facility use dose modulation, iterative reconstruction, and/or weight-based dosing when appropriate to reduce radiation dose to as low as reasonably achievable. Dictated by Ken Grijalva MD @ 02/18/2025 2:14:00 AM (Electronically Signed)
--- NOTE | 2025-02-18 02:02 | CT_ITS ---
Patient: EMMANUEL GAITAN Facility:?[facility] Patient ID:?[id number] Site Patient ID:?[id number]. Site :?[id number] Study:?CT-Head Angio CTA HEAD STROKE PROTOCOL-02/18/2025 2:28:22 AM Ordering Physician:Linn Hernandez Final Report: DATE: 02/18/2025 CLINICAL HISTORY: Patient with focal neurological deficits. TECHNIQUE: Standard helical CT image acquisition through the head and neck was performed after intravenous contrast bolus enhancement. 2D and 3D MIP images for post- processing were performed and interpreted on an independent workstation and 3D images were permanently archived. COMPARISON: CT same day. FINDINGS: The origins of the great vessels from the aortic arch are patent. The origin of the right vertebral artery is patent. The origin of the left vertebral artery is patent. The common carotid arteries are patent There is a severe (71%) stenosis at the origin of the right internal carotid artery by NASCET criteria. This is caused by calcified and noncalcified plaque with a 1.2mm residual lumen. There is a mild (50%) stenosis at the origin of the left internal carotid artery by NASCET criteria. This is caused by calcified plaque with a 2mm residual lumen. The rest of the cervical segments of the internal carotid arteries are patent up to their intracranial segments. The intracranial segments of the internal carotid arteries are patent. The vertebral arteries are codominant. The cervical segments of the vertebral arteries are patent. The intracranial segments of the vertebral arteries are patent. The middle cerebral arteries are normal without aneurysm or proximal occlusion identified. The anterior cerebral arteries are normal without aneurysm or proximal occlusion identified. The anterior communicating artery is well visualized and appears normal. The basilar artery is normal without aneurysm or occlusion. The posterior cerebral arteries demonstrate severe narrowing on the right. There is normal opacification of major intracranial venous structures. The visualized lung apices demonstrate a moderate right pleural effusion and a small area of consolidation in the left upper lobe. The thyroid gland is unremarkable. The soft tissues of the neck are unremarkable. There are degenerative changes in the cervical spine. IMPRESSION: 1. No proximal intracranial large vessel occlusion. Intracranial atherosclerosis with a focal severe stenosis in the right P2 segment. 2. Severe (71%) stenosis at the origin of the right internal carotid artery by NASCET criteria. This is caused by calcified and noncalcified plaque with a 1.2mm residual lumen. 3. Mild (50%) stenosis at the origin of the left internal carotid artery by NASCET criteria. This is caused by calcified plaque with a 2mm residual lumen. 4. Moderate right pleural effusion and a small area of pulmonary consolidation in the left upper lobe. Clinical correlation is recommended. Please note that all CT scans at this facility use dose modulation, iterative reconstruction, and/or weight-based dosing when appropriate to reduce radiation dose to as low as reasonably achievable. Dictated by Zion Barcenas MD @ 02/18/2025 8:21:00 AM (Electronic Signature)
--- NOTE | 2025-02-18 02:02 | CT_ITS ---
Patient: EMMANUEL GAITAN Facility:?[facility] Patient ID:?[id number] Site Patient ID:?[id number]. Site :?[id number] Study:?CT-Neck Angio CTA NECK STROKE PROTOCOL-02/18/2025 2:25:58 AM Ordering Physician:Linn Hernandez Final Report: DATE: 02/18/2025 CLINICAL HISTORY: Patient with focal neurological deficits. TECHNIQUE: Standard helical CT image acquisition through the head and neck was performed after intravenous contrast bolus enhancement. 2D and 3D MIP images for post- processing were performed and interpreted on an independent workstation and 3D images were permanently archived. COMPARISON: CT same day. FINDINGS: The origins of the great vessels from the aortic arch are patent. The origin of the right vertebral artery is patent. The origin of the left vertebral artery is patent. The common carotid arteries are patent There is a severe (71%) stenosis at the origin of the right internal carotid artery by NASCET criteria. This is caused by calcified and noncalcified plaque with a 1.2mm residual lumen. There is a mild (50%) stenosis at the origin of the left internal carotid artery by NASCET criteria. This is caused by calcified plaque with a 2mm residual lumen. The rest of the cervical segments of the internal carotid arteries are patent up to their intracranial segments. The intracranial segments of the internal carotid arteries are patent. The vertebral arteries are codominant. The cervical segments of the vertebral arteries are patent. The intracranial segments of the vertebral arteries are patent. The middle cerebral arteries are normal without aneurysm or proximal occlusion identified. The anterior cerebral arteries are normal without aneurysm or proximal occlusion identified. The anterior communicating artery is well visualized and appears normal. The basilar artery is normal without aneurysm or occlusion. The posterior cerebral arteries demonstrate severe narrowing on the right. There is normal opacification of major intracranial venous structures. The visualized lung apices demonstrate a moderate right pleural effusion and a small area of consolidation in the left upper lobe. The thyroid gland is unremarkable. The soft tissues of the neck are unremarkable. There are degenerative changes in the cervical spine. IMPRESSION: 1. No proximal intracranial large vessel occlusion. Intracranial atherosclerosis with a focal severe stenosis in the right P2 segment. 2. Severe (71%) stenosis at the origin of the right internal carotid artery by NASCET criteria. This is caused by calcified and noncalcified plaque with a 1.2mm residual lumen. 3. Mild (50%) stenosis at the origin of the left internal carotid artery by NASCET criteria. This is caused by calcified plaque with a 2mm residual lumen. 4. Moderate right pleural effusion and a small area of pulmonary consolidation in the left upper lobe. Clinical correlation is recommended. Please note that all CT scans at this facility use dose modulation, iterative reconstruction, and/or weight-based dosing when appropriate to reduce radiation dose to as low as reasonably achievable. Dictated by Zion Barcenas MD @ 02/18/2025 8:21:44 AM (Electronic Signature)
--- NOTE | 2025-02-18 02:04 | ED.NEUROSD ---
HPI - Neuro Symptoms/Deficit General Date Seen: 02/18/25 <David Rich DO - Last Filed: 02/18/25 07:06> Chief Complaint: Neuro Symptoms/Altered Deficit <David Rich DO - Last Filed: 02/18/25 07:06> Stated Complaint: loss of control right side <David Rich - Last Filed: 02/18/25 07:06> Time Seen by Provider: 02/18/25 01:49 <David Rich - Last Filed: 02/18/25 07:06> Source: patient <David Rich DO - Last Filed: 02/18/25 07:06> Mode of arrival: ambulatory <David Rich DO - Last Filed: 02/18/25 07:06> Limitations: no limitations <David Rich DO - Last Filed: 02/18/25 07:06> History of Present Illness HPI Narrative: Patient is an 84-year-old male presenting to the emergency department for concerns of a stroke. He states at about 23:00 when he was getting ready for bed he noticed he denied of coordination of his right arm. This lasted for about 4-5 minutes and then resolved. He states again around 13:00 symptoms came back. They again only lasted for a few minutes. He has never had these symptoms before. Does states he has had TIAs in the past. He was able to ambulate into the emergency department and his son states he appeared to be walking at his baseline. Did appear to be slightly off balance. Does state he has been having issues with dizziness and falls over the past few months. Denies headache, vision changes, numbness, abdominal pain, chest pain, shortness of breath, diarrhea, constipation. Does take warfarin for a heart valve and AFib. Also has a pacemaker. States he checks his INR regularly. He is also diabetic, has hypertension and has heart failure. <David Rich - Last Filed: 02/18/25 07:06> Related Data Home Medications: Home Medications ?Medication ?Instructions ?Recorded ?Confirmed acetaminophen 650 mg 650 mg PO Q4H PRN 09/30/24 02/15/25 tablet,extended release sennosides 8.6 mg capsule (senna) 8.6 mg PO QDAY 02/15/25 02/15/25 spironolactone 25 mg tablet 12.5 mg PO DAILY 02/15/25 02/15/25 torsemide 20 mg tablet 20 mg PO QDAY 02/15/25 02/15/25 Previous Rx's ?Medication ?Instructions ?Recorded warfarin 10 mg tablet 5 - 10 mg PO QDAY #120 tabs 10/17/24 empagliflozin 25 mg tablet 12.5 mg (1/2 x 25 mg) PO QAM #45 01/03/25 tabs metoprolol tartrate 25 mg tablet 25 mg PO QDAY #90 tabs 01/03/25 polyethylene glycol 3350 17 gram 17 g PO QDAY #100 ea 01/03/25 oral powder packet sertraline 100 mg tablet 100 mg PO QDAY #90 tabs 01/03/25 sertraline 50 mg tablet 50 mg PO QDAY #90 tabs 01/03/25 amoxicillin 500 mg tablet 2,000 mg (4 x 500 mg) PO ONCE PRN 02/10/25 dental appointment #4 tabs <David Rich DO - Last Filed: 02/18/25 07:06> Allergies/Adverse Reactions: Allergies Allergy/AdvReac Type Severity Reaction Status Date / Time No Known Allergies Allergy Verified 02/15/25 10:55 <David Rich DO - Last Filed: 02/18/25 07:06> Review of Systems Status of ROS: Reports: 10 or more systems reviewed and unremarkable except as noted in History and below <David Rich DO - Last Filed: 02/18/25 07:06> [facility] Medical History: Medical History Acute exacerbation of congestive heart failure (09/20/24) ?I50.9 - Heart failure, unspecified (ICD-10) Constipation (09/20/24) ?K59.00 - Constipation, unspecified (ICD-10) Hx of ventricular tachycardia ?Z86.79 - Personal history of other diseases of the circulatory system (ICD-10) Pacemaker (2005) ?Z95.0 - Presence of cardiac pacemaker (ICD-10) Pneumonia (09/20/24) ?J18.9 - Pneumonia, unspecified organism (ICD-10) Pulmonary mass (~09/2021) ?R91.8 - Other nonspecific abnormal finding of lung field (ICD-10) Elevated hemoglobin A1c ?R73.09 - Other abnormal glucose (ICD-10) Syncope ?R55 - Syncope and collapse (ICD-10) Tricuspid regurgitation ?I07.1 - Rheumatic tricuspid insufficiency (ICD-10) History of TIA (transient ischemic attack) (2015) ?Z86.73 - Personal history of transient ischemic attack (TIA), and cerebral infarction without residual deficits (ICD-10) History of endocarditis (2007) ?Z86.79 - Personal history of other diseases of the circulatory system (ICD-10) Pulmonary hypertension (09/07/24) ?I27.20 - Pulmonary hypertension, unspecified (ICD-10) Hematoma of rectus sheath (09/13/24) ?S30.1XXA - Contusion of abdominal wall, initial encounter (ICD-10) Vitamin B12 deficiency (~1988) ?E53.8 - Deficiency of other specified B group vitamins (ICD-10) History of colonic polyps ?Z86.010 - Personal history of colonic polyps (ICD-10) Precancerous skin lesion ?L98.9 - Disorder of the skin and subcutaneous tissue, unspecified (ICD-10) Incisional hernia without obstruction or gangrene ?K43.2 - Incisional hernia without obstruction or gangrene (ICD-10) Atrial fibrillation (2005) ?I48.91 - Unspecified atrial fibrillation (ICD-10) History of left heart catheterization (2014) ?Z98.890 - Other specified postprocedural states (ICD-10) Echocardiogram abnormal (2016) ?R93.1 - Abnormal findings on diagnostic imaging of heart and coronary circulation (ICD-10) Health care directive on file ?Z78.9 - Other specified health status (ICD-10) <David Rich DO - Last Filed: 02/18/25 07:06> Surgical History: Surgical History History of vasectomy ?Z98.52 - Vasectomy status (ICD-10) History of coronary artery bypass graft ?Z95.1 - Presence of aortocoronary bypass graft (ICD-10) History of inguinal hernia repair (2001) ?Z98.890 - Other specified postprocedural states (ICD-10) ?Z87.19 - Personal history of other diseases of the digestive system (ICD-10) History of permanent cardiac pacemaker placement (2005) ?Z95.0 - Presence of cardiac pacemaker (ICD-10) History of aortic valve replacement with metallic valve (2006) ?Z95.4 - Presence of other heart-valve replacement (ICD-10) History of hemorrhoidectomy (2010) ?Z98.890 - Other specified postprocedural states (ICD-10) History of cholecystectomy (2010) ?Z90.49 - Acquired absence of other specified parts of digestive tract (ICD-10) H/O tricuspid valve repair (2015) ?Z98.890 - Other specified postprocedural states (ICD-10) Hx of colonoscopy (04/12/19) ?Z98.890 - Other specified postprocedural states (ICD-10) <David Rich DO - Last Filed: 02/18/25 07:06> Family History: Family History Brother Atrial fibrillation Prostate cancer Sister Breast cancer <David Rich DO - Last Filed: 02/18/25 07:06> Social History: Social History Narrative: Exercises 3 to 4 times per week- walking 1 h, wood working, remodeling History of cigarette smoking- quit 2003. 40 pack years , retired from [employer], 3 adult kids Social drinker- 9/week What is your current living situation?: I presently have a place to live Problems where you live: no known problems In the past 12 months, utilities in danger of being shut off: no In past 12 months, lack of transportation kept you from medical appts, meetings, work, or getting things needed for daily living: no In the past 12 mos, have been you worried that your food would run out before you had money to buy more?: never true In the past 12 mos, the food you bought just didn't last and you didn't have money to buy more?: never true Smoking Status: Never smoker Do you use any of these nicotine containing products: None How often do you have a drink containing alcohol: 4 or more times a week How many standard drinks containing alcohol do you have on a typical day: 1 or 2 AUDIT-C Alcohol total score: 4 Non-prescribed substance use: denies use How often does anyone, including family, friends and others, physically hurt you: never How often does anyone, including family, friends and others, insult or talk down to you: never How often does anyone, including family, friends and others, threaten you with harm: never How often does anyone, including family, friends and others, scream or curse at you: never <David Rich DO - Last Filed: 02/18/25 07:06> Exam Narrative: Exam Narrative: Const: Well-nourished, Well-developed, in mild distress Eyes: PERRL, no conjunctival injection, and symmetrical lids HENT: Atraumatic external nose and ears. Moist mucous membranes. Neck: Symmetric, trachea midline, No thyromegaly. CVS: RRR, Peripheral pulses 2+ and equal in all extremities RESP: Unlabored respiratory effort. Clear to auscultation bilaterally. GI: Nontender/Nondistended, No rebound or guarding. MSK:Extremities w/o deformity, Normal Active ROM Skin: Warm, Dry. No rashes or lesions. Neuro: Normal Muscle tone, Cranial nerves 2-12 grossly intact, normal [id number], normal [id number], normal strength 5/5 upper extremities bilaterally, 5/5 strength in left lower extremity. 4+/5 strength and right lower extremity most notably at the hip. 5/5 foot plantar and dorsiflexion on the right. 5/5 knee extension and flexion on the right normal sensation upper and lower extremities bilaterally, normal rapid alternating movements. Psych: Awake, Alert, & Oriented x3. Appropriate mood and affect. <David Rich DO - Last Filed: 02/18/25 07:06> Const: Vital Signs, click to edit/add: Vital Signs - 24 hr 02/18/25 01:45 02/18/25 02:24 02/18/25 02:25 Temperature 97.3 F L Pulse Rate 73 75 Pulse Rate [Right Pulse Oximeter] 70 Respiratory Rate 20 26 H 12 Blood Pressure 100/56 L Blood Pressure [Le ft Upper Arm] 105/61 Pulse Oximetry 93 83 L 80 L Oxygen Delivery Me thod Room Air Oxygen Flow Rate 02/18/25 02:30 02/18/25 02:42 02/18/25 02:45 Temperature Pulse Rate 70 71 70 Pulse Rate [Right Pulse Oximeter] Respiratory Rate 24 7 L 22 Blood Pressure 99/55 L Blood Pressure [Le ft Upper Arm] Pulse Oximetry 91 89 95 Oxygen Delivery Me thod Oxygen Flow Rate 02/18/25 03:00 02/18/25 03:02 02/18/25 03:15 Temperature Pulse Rate 74 72 Pulse Rate [Right Pulse Oximeter] Respiratory Rate 13 26 H 21 Blood Pressure 80/62 L Blood Pressure [Le ft Upper Arm] Pulse Oximetry 83 L 89 Oxygen Delivery Me thod Oxygen Flow Rate 02/18/25 03:21 02/18/25 03:30 02/18/25 03:45 Temperature Pulse Rate 71 70 Pulse Rate [Right Pulse Oximeter] Respiratory Rate 19 13 Blood Pressure Blood Pressure [Le ft Upper Arm] Pulse Oximetry 91 96 Oxygen Delivery Me thod Oxygen Flow Rate 02/18/25 03:58 02/18/25 04:00 02/18/25 04:01 Temperature Pulse Rate 72 Pulse Rate [Right Pulse Oximeter] Respiratory Rate 19 Blood Pressure Blood Pressure [Le ft Upper Arm] 113/60 Pulse Oximetry 94 92 Oxygen Delivery Me thod OxyMask Oxygen Flow Rate 2 02/18/25 04:02 02/18/25 04:15 02/18/25 04:30 Temperature Pulse Rate 70 71 72 Pulse Rate [Right Pulse Oximeter] Respiratory Rate 20 19 6 L Blood Pressure 113/60 Blood Pressure [Le ft Upper Arm] Pulse Oximetry 95 95 95 Oxygen Delivery Me thod Oxygen Flow Rate 02/18/25 04:45 02/18/25 05:11 02/18/25 05:13 Temperature Pulse Rate 71 71 70 Pulse Rate [Right Pulse Oximeter] Respiratory Rate 17 19 13 Blood Pressure 110/56 L Blood Pressure [Le ft Upper Arm] Pulse Oximetry 93 95 95 Oxygen Delivery Me thod Oxygen Flow Rate 02/18/25 05:15 02/18/25 05:30 02/18/25 05:45 Temperature Pulse Rate 70 70 Pulse Rate [Right Pulse Oximeter] Respiratory Rate 24 9 L 18 Blood Pressure Blood Pressure [Le ft Upper Arm] Pulse Oximetry 95 95 Oxygen Delivery Me thod Oxygen Flow Rate 02/18/25 06:00 02/18/25 06:02 02/18/25 06:15 Temperature Pulse Rate 70 70 76 Pulse Rate [Right Pulse Oximeter] Respiratory Rate 18 10 L 18 Blood Pressure 110/61 Blood Pressure [Le ft Upper Arm] Pulse Oximetry 93 94 94 Oxygen Delivery Me thod Oxygen Flow Rate 02/18/25 06:30 02/18/25 06:45 02/18/25 07:00 Temperature Pulse Rate 73 74 70 Pulse Rate [Right Pulse Oximeter] Respiratory Rate 25 H 25 H 20 Blood Pressure Blood Pressure [Le ft Upper Arm] Pulse Oximetry 94 96 95 Oxygen Delivery Me thod Oxygen Flow Rate 02/18/25 07:03 02/18/25 07:15 02/18/25 07:30 Temperature Pulse Rate 75 71 70 Pulse Rate [Right Pulse Oximeter] Respiratory Rate 23 18 23 Blood Pressure 96/57 L Blood Pressure [Le ft Upper Arm] Pulse Oximetry 95 96 95 Oxygen Delivery Me thod Oxygen Flow Rate 02/18/25 07:45 02/18/25 08:00 02/18/25 08:02 Temperature Pulse Rate 71 71 71 Pulse Rate [Right Pulse Oximeter] Respiratory Rate 16 24 16 Blood Pressure 95/43 L Blood Pressure [Le ft Upper Arm] Pulse Oximetry 96 95 95 Oxygen Delivery Me thod Oxygen Flow Rate 02/18/25 08:15 02/18/25 08:30 02/18/25 08:45 Temperature Pulse Rate 70 70 Pulse Rate [Right Pulse Oximeter] Respiratory Rate 16 18 Blood Pressure Blood Pressure [Le ft Upper Arm] Pulse Oximetry 96 96 Oxygen Delivery Me thod Oxygen Flow Rate 02/18/25 09:00 02/18/25 09:07 02/18/25 09:45 Temperature Pulse Rate 71 Pulse Rate [Right Pulse Oximeter] Respiratory Rate 22 23 Blood Pressure 100/53 L Blood Pressure [Le ft Upper Arm] Pulse Oximetry 88 Oxygen Delivery Me thod Oxygen Flow Rate <David Rich, DO - Last Filed: 02/18/25 07:06> Vital Signs, click to edit/add: Vital Signs - 24 hr 02/18/25 01:45 02/18/25 02:24 02/18/25 02:25 Temperature 97.3 F L Pulse Rate 73 75 Pulse Rate [Right Pulse Oximeter] 70 Respiratory Rate 20 26 H 12 Blood Pressure 100/56 L Blood Pressure [Le ft Upper Arm] 105/61 Pulse Oximetry 93 83 L 80 L Oxygen Delivery Me thod Room Air Oxygen Flow Rate 02/18/25 02:30 02/18/25 02:42 02/18/25 02:45 Temperature Pulse Rate 70 71 70 Pulse Rate [Right Pulse Oximeter] Respiratory Rate 24 7 L 22 Blood Pressure 99/55 L Blood Pressure [Le ft Upper Arm] Pulse Oximetry 91 89 95 Oxygen Delivery Me thod Oxygen Flow Rate 02/18/25 03:00 02/18/25 03:02 02/18/25 03:15 Temperature Pulse Rate 74 72 Pulse Rate [Right Pulse Oximeter] Respiratory Rate 13 26 H 21 Blood Pressure 80/62 L Blood Pressure [Le ft Upper Arm] Pulse Oximetry 83 L 89 Oxygen Delivery Me thod Oxygen Flow Rate 02/18/25 03:21 02/18/25 03:30 02/18/25 03:45 Temperature Pulse Rate 71 70 Pulse Rate [Right Pulse Oximeter] Respiratory Rate 19 13 Blood Pressure Blood Pressure [Le ft Upper Arm] Pulse Oximetry 91 96 Oxygen Delivery Me thod Oxygen Flow Rate 02/18/25 03:58 02/18/25 04:00 02/18/25 04:01 Temperature Pulse Rate 72 Pulse Rate [Right Pulse Oximeter] Respiratory Rate 19 Blood Pressure Blood Pressure [Le ft Upper Arm] 113/60 Pulse Oximetry 94 92 Oxygen Delivery Me thod OxyMask Oxygen Flow Rate 2 02/18/25 04:02 02/18/25 04:15 02/18/25 04:30 Temperature Pulse Rate 70 71 72 Pulse Rate [Right Pulse Oximeter] Respiratory Rate 20 19 6 L Blood Pressure 113/60 Blood Pressure [Le ft Upper Arm] Pulse Oximetry 95 95 95 Oxygen Delivery Me thod Oxygen Flow Rate 02/18/25 04:45 02/18/25 05:11 02/18/25 05:13 Temperature Pulse Rate 71 71 70 Pulse Rate [Right Pulse Oximeter] Respiratory Rate 17 19 13 Blood Pressure 110/56 L Blood Pressure [Le ft Upper Arm] Pulse Oximetry 93 95 95 Oxygen Delivery Me thod Oxygen Flow Rate 02/18/25 05:15 02/18/25 05:30 02/18/25 05:45 Temperature Pulse Rate 70 70 Pulse Rate [Right Pulse Oximeter] Respiratory Rate 24 9 L 18 Blood Pressure Blood Pressure [Le ft Upper Arm] Pulse Oximetry 95 95 Oxygen Delivery Me thod Oxygen Flow Rate 02/18/25 06:00 02/18/25 06:02 02/18/25 06:15 Temperature Pulse Rate 70 70 76 Pulse Rate [Right Pulse Oximeter] Respiratory Rate 18 10 L 18 Blood Pressure 110/61 Blood Pressure [Le ft Upper Arm] Pulse Oximetry 93 94 94 Oxygen Delivery Me thod Oxygen Flow Rate 02/18/25 06:30 02/18/25 06:45 02/18/25 07:00 Temperature Pulse Rate 73 74 70 Pulse Rate [Right Pulse Oximeter] Respiratory Rate 25 H 25 H 20 Blood Pressure Blood Pressure [Le ft Upper Arm] Pulse Oximetry 94 96 95 Oxygen Delivery Me thod Oxygen Flow Rate 02/18/25 07:03 02/18/25 07:15 02/18/25 07:30 Temperature Pulse Rate 75 71 70 Pulse Rate [Right Pulse Oximeter] Respiratory Rate 23 18 23 Blood Pressure 96/57 L Blood Pressure [Le ft Upper Arm] Pulse Oximetry 95 96 95 Oxygen Delivery Me thod Oxygen Flow Rate 02/18/25 07:45 02/18/25 08:00 02/18/25 08:02 Temperature Pulse Rate 71 71 71 Pulse Rate [Right Pulse Oximeter] Respiratory Rate 16 24 16 Blood Pressure 95/43 L Blood Pressure [Le ft Upper Arm] Pulse Oximetry 96 95 95 Oxygen Delivery Me thod Oxygen Flow Rate 02/18/25 08:15 02/18/25 08:30 02/18/25 08:45 Temperature Pulse Rate 70 70 Pulse Rate [Right Pulse Oximeter] Respiratory Rate 16 18 Blood Pressure Blood Pressure [Le ft Upper Arm] Pulse Oximetry 96 96 Oxygen Delivery Me thod Oxygen Flow Rate 02/18/25 09:00 02/18/25 09:07 02/18/25 09:45 Temperature Pulse Rate 71 Pulse Rate [Right Pulse Oximeter] Respiratory Rate 22 23 Blood Pressure 100/53 L Blood Pressure [Le ft Upper Arm] Pulse Oximetry 88 Oxygen Delivery Me thod Oxygen Flow Rate <Rubens Roblero MD - Last Filed: 02/18/25 09:56> Course Reevaluation(s) Time of Reevaluation #1: 08:07 <Rubens Roblero MD - Last Filed: 02/18/25 09:56> Reevaluation #1: 84-year-old gentleman who presented here with the TIA like symptoms. Previous physician at talk to stroke neural, they recommended MRI, approximately a 48 hour wait at [facility], he was not a candidate for T and K, based on the fact he is anticoagulated, is symptoms are are/resolved. He is currently on Eliquis. Has a pacemaker, that makes him not a candidate for MRI here. Vital signs are stable, cardiovascular, he is in no distress, at this point we will wait for possible placement, for higher level care. He will need to go by ambulance. <Rubens Roblero MD - Last Filed: 02/18/25 09:56> Time of Reevaluation #2: 09:42 <Rubens Roblero MD - Last Filed: 02/18/25 09:56> Reevaluation #2: I visited with the patient, and his , he feels that he has totally resolved, his history is 1 of almost cog wheeling weakness of the right arm. This could be a TIA or this could also be a small seizure like episode. Either way I do think that it has resolved, he had 2-3 these episodes he noticed overnight. Currently has none. Speaking to me normally. No headache, vital signs are all normal. Scheduled to be transferred to [facility] for MRI, as we are not pacemaker safe here. Likely neuro was see him there also. They were comfortable this plan. <Rubens Roblero MD - Last Filed: 02/18/25 09:56> Vital Signs Vital signs: Initial Vital Signs Temperature 97.3 F L 02/18/25 01:45 Temperature Source Temporal Artery Scan 02/18/25 01:45 Pulse Rate 70 02/18/25 01:45 Pulse Rhythm Regular 02/18/25 01:45 Respiratory Rate 20 02/18/25 01:45 Blood Pressure 105/61 02/18/25 01:45 Blood Pressure Mean 75 02/18/25 01:45 Blood Pressure Position Semi-Fowlers 02/18/25 01:45 Pulse Oximetry 93 02/18/25 01:45 Oxygen Delivery Method Room Air 02/18/25 01:45 Vital Signs Temperature 97.3 F L 02/18/25 01:45 Pulse Rate 70 02/18/25 01:45 Respiratory Rate 20 02/18/25 01:45 Blood Pressure 105/61 02/18/25 01:45 Pulse Oximetry 93 02/18/25 01:45 Oxygen Delivery Method Room Air 02/18/25 01:45 Temperature 97.3 F L 02/18/25 01:45 Pulse Rate 71 02/18/25 09:45 Respiratory Rate 23 02/18/25 09:07 Blood Pressure 100/53 L 02/18/25 09:07 Pulse Oximetry 88 02/18/25 09:45 Oxygen Delivery Method OxyMask 02/18/25 03:58 Oxygen Flow Rate 2 02/18/25 03:58 <David Rich DO - Last Filed: 02/18/25 07:06> Initial Vital Signs Temperature 97.3 F L 02/18/25 01:45 Temperature Source Temporal Artery Scan 02/18/25 01:45 Pulse Rate 70 02/18/25 01:45 Pulse Rhythm Regular 02/18/25 01:45 Respiratory Rate 20 02/18/25 01:45 Blood Pressure 105/61 02/18/25 01:45 Blood Pressure Mean 75 02/18/25 01:45 Blood Pressure Position Semi-Fowlers 02/18/25 01:45 Pulse Oximetry 93 02/18/25 01:45 Oxygen Delivery Method Room Air 02/18/25 01:45 Vital Signs Temperature 97.3 F L 02/18/25 01:45 Pulse Rate 70 02/18/25 01:45 Respiratory Rate 20 02/18/25 01:45 Blood Pressure 105/61 02/18/25 01:45 Pulse Oximetry 93 02/18/25 01:45 Oxygen Delivery Method Room Air 02/18/25 01:45 Temperature 97.3 F L 02/18/25 01:45 Pulse Rate 71 02/18/25 09:45 Respiratory Rate 23 02/18/25 09:07 Blood Pressure 100/53 L 02/18/25 09:07 Pulse Oximetry 88 02/18/25 09:45 Oxygen Delivery Method OxyMask 02/18/25 03:58 Oxygen Flow Rate 2 02/18/25 03:58 <Rubens Roblero MD - Last Filed: 02/18/25 09:56> MDM - Neuro Symptoms/Deficit MDM Narrative Medical decision making narrative: Patient is an 84-year-old male presenting to the emergency department for possible stroke. Initially when he arrived symptoms for resolve [place] stroke to not get called instantaneously. I was doing my exam I noticed some slight weakness to the right lower extremity. He is unsure how long this weakness has been going on for but does state it does feel weaker than he normally does. Due to this I did call a code stroke. He was sent to CT and CTA. I spoke to Dr. Ortiz who does not recommend TNK at this time especially with the unknown last known well for the right leg weakness. The rest of his symptoms seem to have since resolved. Stroke workup was ordered including BMP, CBC, PTT, INR. EKG also ordered. Patient does have a pacemaker so if MRI is required we will not be able to do it here. EKG interpreted by myself shows a wide complex QRS with that is ventricular paced. There is an all artifact and is hard to see the pacer spikes but they were clearly visible on the heart monitor while EKG was being done. Lab work returned showing no acute concerning abnormalities. INR is 1.76. Hemoglobin is around his baseline of 8.4-9.2. Sodium is slightly low at 131. Creatinine is at baseline. CT scan of his head shows no acute concerning abnormalities. CT of his chest shows severe stenosis of the right proximal internal carotid artery and mild stenosis on the left. There is also right-sided pleural effusion. Also signs of pulmonary hypertension. I spoke to the patient and he states he is aware there is a pleural effusion and is aware of history of pulmonary hypertension. I spoke to Dr. Ortiz again he recommends an MRI. We are unable to do that MRI here in [place] due to the patient's pacemaker. He is a complex [facility] patient and would prefer to be transferred there for his care. He sees cardiology and nephrology there. He did start to become hypoxic in the emergency department. When I spoke to him he states he does not feel short of breath but does states he wears oxygen at night and is known to have his oxygen drop into the 80s at night. [facility] is unable to do MRI and pacemaker patient's over the weekend. When not be able to do wait to at least Thursday. I spoke to [facility] who accepted the patient for transfer. Patient and family are agreeable to transfer to [facility]. <David Rich DO - Last Filed: 02/18/25 07:06> Lab Data Labs: Lab Results 02/18/25 Range/Units 02:00 WBC 5.94 (4.50-11.00) K/uL RBC 3.28 L (4.30-5.90) m/uL Hgb 8.4 L (13.5-17.5) gm/dL Hct 27.9 L (37.0-53.0) % MCV 85 (80-100) fL MCH 26 (26-34) pg MCHC 30 L (32-36) gm/dL RDW Coeff of Vanessa 19.7 H (11.5-15.5) % Plt Count 171 (140-440) K/uL Neut % (Auto) 75.3 H (42.0-72.0) % Lymph % (Auto) 7.6 L (20-44) % [place] % (Auto) 13.5 H (0.0-11.0) % Eos % (Auto) 2.5 (0.0-7.0) % Baso % (Auto) 0.8 (0.0-3.0) % Neut # (Auto) 4.50 (1.7-7.0) K/uL Lymph # (Auto) 0.50 L (0.90-2.90) K/uL [place] # (Auto) 0.80 (0.00-0.90) K/UL Eos # (Auto) 0.15 (0.00-0.50) K/uL Baso # (Auto) 0.05 (0.00-0.30) K/uL Abs Immat Gran (auto) 0.02 (0.00-0.30) K/uL Imm/Tot Granulo (auto) 0.3 % INR 1.76 H (0.91-1.10) APTT 40 H (23-33) Seconds Sodium 131 L (135-149) mmol/L Potassium 4.7 (3.6-5.1) mmol/L Chloride 95 L (96-114) mmol/L Carbon Dioxide 29 (20-32) mmol/L Anion Gap 7 (7-15) mEq/L BUN 57 H (7-30) mg/dL Creatinine 1.9 H (0.5-1.5) mg/dL Estimated GFR 34 ml/min Glucose 118 H (60-115) mg/dL Calcium 9.3 (8.4-10.6) mg/dL <David Rich, DO - Last Filed: 02/18/25 07:06> Lab Results 02/18/25 Range/Units 02:00 WBC 5.94 (4.50-11.00) K/uL RBC 3.28 L (4.30-5.90) m/uL Hgb 8.4 L (13.5-17.5) gm/dL Hct 27.9 L (37.0-53.0) % MCV 85 (80-100) fL MCH 26 (26-34) pg MCHC 30 L (32-36) gm/dL RDW Coeff of Vanessa 19.7 H (11.5-15.5) % Plt Count 171 (140-440) K/uL Neut % (Auto) 75.3 H (42.0-72.0) % Lymph % (Auto) 7.6 L (20-44) % [place] % (Auto) 13.5 H (0.0-11.0) % Eos % (Auto) 2.5 (0.0-7.0) % Baso % (Auto) 0.8 (0.0-3.0) % Neut # (Auto) 4.50 (1.7-7.0) K/uL Lymph # (Auto) 0.50 L (0.90-2.90) K/uL [place] # (Auto) 0.80 (0.00-0.90) K/UL Eos # (Auto) 0.15 (0.00-0.50) K/uL Baso # (Auto) 0.05 (0.00-0.30) K/uL Abs Immat Gran (auto) 0.02 (0.00-0.30) K/uL Imm/Tot Granulo (auto) 0.3 % INR 1.76 H (0.91-1.10) APTT 40 H (23-33) Seconds Sodium 131 L (135-149) mmol/L Potassium 4.7 (3.6-5.1) mmol/L Chloride 95 L (96-114) mmol/L Carbon Dioxide 29 (20-32) mmol/L Anion Gap 7 (7-15) mEq/L BUN 57 H (7-30) mg/dL Creatinine 1.9 H (0.5-1.5) mg/dL Estimated GFR 34 ml/min Glucose 118 H (60-115) mg/dL Calcium 9.3 (8.4-10.6) mg/dL <Rubens Roblero MD - Last Filed: 02/18/25 09:56> Imaging Data CT scan head: Attestation: I have reviewed the pertinent imaging results. <DO Scott Membreno Last Filed: 02/18/25 07:06> Radiologist's impression: No acute intracranial abnormality. Please note that all CT scans at this facility use dose modulation, iterative reconstruction, and/or weight-based dosing when appropriate to reduce radiation dose to as low as reasonably achievable. Dictated by Ken Grijalva MD @ 02/18/2025 2:14:00 AM ----- ADDENDUM ----- Addendum: : Results communicated to provider Dr. Diaz at 2:17 a.m. on 02/18/2025. Dictated by Ken Grijalva MD @ Feb 18 2025 2:19AM <David Rich DO - Last Filed: 02/18/25 07:06> CTA head and neck: Attestation: I have reviewed the pertinent imaging results. <David Rich DO - Last Filed: 02/18/25 07:06> Radiologist's impression: Preliminary Report: Preliminary findings/impression: : No large vessel occlusion within the head or neck. 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 Vertebral arteries widely patent throughout their course. No high-grade intracranial arterial stenosis. Right-sided pleural effusion, incompletely assessed. Prominent dilatation of the main pulmonary artery measuring up to 4.4 cm which may be seen in the setting of pulmonary hypertension. Dictated by Ken Grijalva MD @ 02/18/2025 2:39:44 AM <David Rich DO - Last Filed: 02/18/25 07:06> ECG Data Attestation: I personally reviewed and interpreted this ECG as follows: <DO Scott Membreno Last Filed: 02/18/25 07:06> Prior ECG tracings: available for review <David Rich DO - Last Filed: 02/18/25 07:06> Interpretation: Wide QRS with rate of 70 beats per minute, no ST or T-wave abnormalities. Heart monitor her showed a ventricular paced rhythm at the same time EKG was done. EKG does have artifact so difficult to see pacing spikes. <David Rich DO - Last Filed: 02/18/25 07:06> Discharge Plan Discharge Clinical Impression: Transient cerebral ischemia <David Rich DO - Last Filed: 02/18/25 07:06> Patient Disposition: [facility] <David Rich DO - Last Filed: 02/18/25 07:06> Discharge Location: [facility] <David Rich DO - Last Filed: 02/18/25 07:06> Condition: Stable <David Rich DO - Last Filed: 02/18/25 07:06> Additional Instructions: Transfer to [facility] via [facility] ambulance transfer. See transfer written. Patient is stable. <David Rich DO - Last Filed: 02/18/25 07:06> Activity Level: Light activity <David Rich DO - Last Filed: 02/18/25 07:06> Light activity <Rubens Roblero MD - Last Filed: 02/18/25 09:56> Discharge Diet: Regular <David Rich DO - Last Filed: 02/18/25 07:06> Regular <Rubens Roblero MD - Last Filed: 02/18/25 09:56>
[2025-02-18 02:16] LABS: Hematocrit* 27.9 % (37.0-53.0); Hemoglobin* 8.4 gm/dL (13.5-17.5); Immature Granulocytes Abs Auto 0.02 K/uL (0.00-0.30); Immature Granulocytes Pct Auto 0.3 %; Mean Corpuscular HGB Conc 30 gm/dL (32-36); Mean Corpuscular Hemoglobin 26 pg (26-34); Mean Corpuscular Volume 85 fL (80-100); RDW Coefficient of Variation % 19.7 % (11.5-15.5); Red Blood Count* 3.28 m/uL (4.30-5.90); White Blood Count* 5.94 K/uL (4.50-11.00)
[2025-02-18 02:22] LABS: Lymphocytes Absolute Auto 0.50 K/uL (0.90-2.90); Slide Review Reflex No
[2025-02-18 02:27] LABS: INR 1.76 (0.91-1.10); Prothrombin Time 21.5 Seconds
[2025-02-18 02:34] LABS: Chloride* 95 mmol/L (96-114); Sodium* 131 mmol/L (135-149)
[2025-02-18 02:35] LABS: Potassium* 4.7 mmol/L (3.6-5.1)
[2025-02-18 02:37] LABS: Blood Urea Nitrogen* 57 mg/dL (7-30); Creatinine* 1.9 mg/dL (0.5-1.5); Estimated Glomerular Filt Rate 34 ml/min
[2025-02-18 02:38] LABS: Anion Gap 7 mEq/L (7-15); Calcium* 9.3 mg/dL (8.4-10.6); Carbon Dioxide* 29 mmol/L (20-32); Glucose* 118 mg/dL (60-115)
== END 2025-02-18 17:00 | disposition short-term general hospital (02) ==
PROVIDERS: Student in an Organized Health Care Education/Training Program; Emergency Provider Family Medicine; PCP Family Medicine
DX: G45.9 Transient cerebral ischemic attack, unspecified (principal)
CPT/HCPCS: 36415; 70450; 70496; 70498; 80048; 85025; 85610; 85730; 93005; 94761; 99285; A0425; A0427; Q9967

== ENCOUNTER 2025-02-18 02:41 | Outpatient (CLI) | payer MEDICARE, OTHER, SELFPAY | END 2025-02-18 02:42 | disposition home or self-care (01) | LOC: AMB 02-28 16:38 | PROVIDERS: PCP Internal Medicine; Visit Provider Student in an Organized Health Care Education/Training Program | DX: G45.9 Transient cerebral ischemic attack, unspecified (principal) | CPT/HCPCS: A0425; A0427 ==

== ENCOUNTER 2025-02-27 14:00 | Outpatient (CLI) | payer MEDICARE, OTHER, SELFPAY | END 2025-02-27 14:01 | disposition home or self-care (01) | LOC: WOUND 14:03 | PROVIDERS: PCP Internal Medicine; Visit Provider Physician Assistant Surgical | DX: S41.112A Laceration without foreign body of left upper arm, initial encounter (principal); W19.XXXA Unspecified fall, initial encounter | CPT/HCPCS: G0463 ==

== ENCOUNTER 2025-03-06 14:38 | Outpatient (CLI) | payer MEDICARE, OTHER, SELFPAY | END 2025-03-06 14:39 | disposition home or self-care (01) | LOC: NFLDREF 03-09 14:24 | PROVIDERS: PCP Internal Medicine; Referring Provider Family Medicine; Visit Provider Family Medicine | DX: S51.802D Unspecified open wound of left forearm, subsequent encounter (principal); N18.32 Chronic kidney disease, stage 3b; D64.9 Anemia, unspecified; R73.03 Prediabetes; R79.89 Other specified abnormal findings of blood chemistry; Z51.81 Encounter for therapeutic drug level monitoring; Z79.01 Long term (current) use of anticoagulants | CPT/HCPCS: 80053 ==

== ENCOUNTER 2025-03-06 14:50 | Outpatient (CLI) | payer MEDICARE, OTHER, SELFPAY | END 2025-03-06 14:51 | disposition home or self-care (01) | LOC: WOUND 14:50 | PROVIDERS: PCP Internal Medicine; Visit Provider Physician Assistant Surgical | DX: S51.802D Unspecified open wound of left forearm, subsequent encounter (principal); Z79.01 Long term (current) use of anticoagulants; N18.32 Chronic kidney disease, stage 3b; D64.9 Anemia, unspecified; R73.03 Prediabetes; R79.89 Other specified abnormal findings of blood chemistry; Z51.81 Encounter for therapeutic drug level monitoring | CPT/HCPCS: 11042 ==

== ENCOUNTER 2025-03-09 14:18 | Outpatient (CLI) | payer MEDICARE, OTHER, SELFPAY | END 2025-03-09 14:19 | disposition home or self-care (01) | PROVIDERS: PCP Internal Medicine; Visit Provider Internal Medicine | DX: D64.9 Anemia, unspecified (principal); E53.8 Deficiency of other specified B group vitamins; I12.9 Hypertensive chronic kidney disease with stage 1 through stage 4 chronic kidney disease, or unspecified chronic kidney disease; N18.30 Chronic kidney disease, stage 3 unspecified | CPT/HCPCS: 82607; 82728; 82746; 83540; 83550; 84439; 84443 ==

== ENCOUNTER 2025-03-13 14:49 | Outpatient (CLI) | payer MEDICARE, OTHER, SELFPAY | END 2025-03-13 14:50 | disposition home or self-care (01) | LOC: WOUND 14:50 | PROVIDERS: PCP Internal Medicine; Visit Provider Physician Assistant Surgical | DX: S51.802D Unspecified open wound of left forearm, subsequent encounter (principal); Z79.01 Long term (current) use of anticoagulants; N18.32 Chronic kidney disease, stage 3b; D64.9 Anemia, unspecified; R73.03 Prediabetes | CPT/HCPCS: 11042 ==

== ENCOUNTER 2025-03-20 14:44 | Outpatient (CLI) | payer MEDICARE, OTHER, SELFPAY | END 2025-03-20 14:45 | disposition home or self-care (01) | PROVIDERS: PCP Internal Medicine; Visit Provider Physician Assistant Surgical | DX: Z09 Encounter for follow-up examination after completed treatment for conditions other than malignant neoplasm (principal); S51.812D Laceration without foreign body of left forearm, subsequent encounter; I48.21 Permanent atrial fibrillation; Z79.01 Long term (current) use of anticoagulants; Z95.2 Presence of prosthetic heart valve | CPT/HCPCS: G0463 ==

== ENCOUNTER 2025-04-04 22:22 | Outpatient (CLI) | payer MEDICARE, OTHER, SELFPAY | END 2025-04-04 22:23 | disposition home or self-care (01) | LOC: AMB 04-08 22:45 | PROVIDERS: PCP Internal Medicine; Visit Provider Emergency Medicine | DX: R42 Dizziness and giddiness (principal) | CPT/HCPCS: A0998 ==